=== PATIENT | male | born 1980 | race Caucasian/White ===

== ENCOUNTER → 2019-11-19 15:13 | Outpatient (CLI) | payer OTHER, SELFPAY ==
--- NOTE | ~2019-11-19 | CT_ITS ---
EXAMINATION: CT cervical spine wo con EXAM DATE: 11/19/2019 15:29 INDICATION: Cervical radiculopathy, right arm numbness. TECHNIQUE: Spiral CT of the cervical spine was performed without contrast. Axial images were reviewe d. Coronal and sagittal reformatted images were also reviewed. The dose-length product (DLP) for thi s examination was 297.49 mGy-cm. The exposure was tailored according to patient size (auto mA exposu re control), and iterative reconstruction (ASIR) was used as additional dose reduction technique. Com parison is made to prior examination from 03/26/2018. FINDINGS: There is mild disc disease at all cervical levels. The vertebral bodies are aligned in the AP dimension. There are no acute fractures identified. The odontoid process is intact. The lateral m asses of C1 line up with C2. Paraspinal soft tissue is unremarkable. The soft tissue is unremarkable. Level by level evaluation: C2-C3: Disc does not extend beyond the endplate margin. Uncovertebral joint arthropathy: None. Facet joint arthropathy: Mild. Neural foraminal stenosis: No stenosis. Central canal stenosis: No stenosis. C3-C4: Disc does not extend beyond the endplate margin. Uncovertebral joint arthropathy: None. Facet joint arthropathy: Mild. Neural foraminal stenosis: No stenosis. Central canal stenosis: No stenosis. C4-C5: Disc does not extend beyond the endplate margin. Uncovertebral joint arthropathy: None. Facet joint arthropathy: Mild. Neural foraminal stenosis: No stenosis. Central canal stenosis: No stenosis. C5-C6: There is a mild diffuse disc bulge. Uncovertebral joint arthropathy: Mild. Facet joint arthropathy: Mild. Neural foraminal stenosis: No stenosis. Central canal stenosis: No stenosis. C6-C7: Disc does not extend beyond the endplate margin. Uncovertebral joint arthropathy: Mild left. Facet joint arthropathy: Mild bilateral. Neural foraminal stenosis: Minimal left. Central canal stenosis: No stenosis. C7-T1: Disc does not extend beyond the endplate margin. Uncovertebral joint arthropathy: None. Facet joint arthropathy: Mild to moderate left, mild right. Neural foraminal stenosis: Mild bilateral. Central canal stenosis: No stenosis. Difficult to appreciate any significant interval change. IMPRESSION: 1. Mild cervical spondylosis. Reviewed, dictated and finalized at location B.
== END ==
PROVIDERS: PCP Family Medicine; Visit Provider Physician Assistant Medical
DX: M47.22 Other spondylosis with radiculopathy, cervical region (principal)
CPT/HCPCS: 72125

== ENCOUNTER 2020-06-12 14:38 | Emergency (ER) | payer OTHER, SELFPAY ==
[2020-06-12] VITALS (14 sets, daily range): BP systolic 138–159; BP diastolic 70–107; PULSE 54–85; RESP 12–20; TEMP 36.4; O2SAT 96–99
--- NOTE | ~2020-06-12 | CT_ITS ---
EXAMINATION: CT chest abdomen pelvis w con DATE: 06/12/2020 17:20 CDT INDICATION: Chest and abdomen pain. Diaphoresis. TECHNIQUE: Computed tomography (CT) of the chest, abdomen, and pelvis was performed with 100 cc Omnip aque 350 intravenous contrast. The dose-length product was 1369.18 mGy-cm. Automated exposure control and iterative reconstruction technique were employed. COMPARISON: CT dated 10/26/2015 FINDINGS: CHEST CT: No significant vascular abnormality. No lymphadenopathy. Heart size normal. No pleural or pericardial effusion. There is a 12 mm right lower lobe nodule with adjacent parenchymal consolidation/pleural thickening. No endobronchial lesions. ABDOMEN/PELVIS CT: The liver, spleen, pancreas, adrenal glands and kidneys are unremarkable. Gallbladder is present. Nor mal appendix. No abnormal pelvic masses or fluid collections. There are possible hydroceles. Fluid in the right inguinal canal. No evidence for abdominal aneurysm. No lymphadenopathy. Retroaortic left r enal vein. Nonobstructive bowel gas pattern. No abnormal pelvic masses or fluid collections. Neurosti mulator leads are identified with generator in the right posterior flank soft tissues. No acute osseo us abnormality. IMPRESSION: 1. Right lower lobe nodule measures 12 mm. Consider follow-up low dose CT at 3 months or PET/CT. 2: Right lower lobe peripheral consolidation/pleural thickening which may be infectious/inflammatory or scarring. Reviewed, dictated and finalized at location A. IMPRESSION: 1. Right lower lobe nodule measures 12 mm. Consider follow-up low dose CT at 3 months or PET/CT. 2: Right lower lobe peripheral consolidation/pleural thickening which may be in fectious/inflammatory or scarring.
--- NOTE | ~2020-06-12 | XR_ITS ---
XR chest 1V 06/12/2020 17:44 Indication: Dyspnea. Diaphoresis. Procedure: AP portable chest Comparison: CT dated 06/12/2020 Findings: There is a parenchymal nodule in the right lower lung zone corresponding to the nodule iden tified on CT examination. There is adjacent parenchymal scarring/pleural thickening. Heart size lidya l. Left lung clear. Impression: 1: Right basilar atelectasis/scarring with adjacent pleural thickening. 2: Right basilar pulmonary nodule. Follow-up low dose CT in 3 months or PET/CT examination. Reviewed, dictated and finalized at location A. Impression: 1: Right basilar atelectasis/scarring with adjacent pleural thickening. 2: Right basilar pulmonary nodule. Follow-up low dose CT in 3 months or PET/CT examination.
--- NOTE | 2020-06-12 15:02 | PC.NURSE ---
Report to rhona persaud to continue care.
[2020-06-12 15:14] LABS: Basophils Absolute Auto 0.1 K/mm3 (0.0-0.1); Basophils Percent Auto 0.4 % (0.2-1.2); Eosinophils Percent Auto 0.2 % (0-4.4); Hematocrit 47.2 % (42.0-52.0); Hemoglobin 16.3 g/dL (14.0-18.0); Immature Granulocyte Absolute 0.03 K/mm3 (0.00-0.031); Immature Granulocyte Percent A 0.2 % (0-0.5); Lymphocytes Absolute Auto 1.14 K/mm3 (0.9-3.2); Lymphocytes Percent Auto 9.3 % (18.3-44.2); Mean Corpuscular HGB Conc 34.5 g/dl (32-36); Mean Corpuscular Hemoglobin 30.7 pg (26-34); Mean Corpuscular Volume 88.9 fl (80-100); Mean Platelet Volume 9.3 fl (7.4-10.4); Monocytes Absolute Auto 0.4 K/mm3 (0.1-0.6); Monocytes Percent Auto 3.6 % (2.6-8.5); Neutrophils Absolute Auto 10.6 K/mm3 (1.3-6.7); Neutrophils Percent Auto 86.3 % (45.5-73.1); Platelet Count Result 351 k/mm3 (150-375); Red Blood Count 5.31 M/mm3 (4.6-6.20); Red Cell Distribution Width 12.7 % (11.5-14.5); White Blood Count 12.2 K/mm3 (4.5-10.0)
[2020-06-12] MEDS: ONDANSETRON INJ 4 MG/2 ML VIAL IV PUSH ×2 (15:25→17:59)
--- NOTE | 2020-06-12 15:25 | ECG_ITS ---
Measurements Intervals [place] Rate: 60 P: 58 [place]: 156 QRS: 58 QRSD: 109 T: 62 QT: 433 QTc: 433 Interpretive Statements SINUS RHYTHM WITH SINUS ARRHYTHMIA BASELINE ARTIFACT- I, II, AVR, AVL, V3 NORMAL ECG Electronically Signed On 06-12-2020 15:45:59 CDT by Jeison Deluca D.O.
--- NOTE | 2020-06-12 15:30 | ED.GENADULT ---
HPI - General Adult General Chief complaint: Nausea/Vomiting/Diarrhea Stated complaint: nausea, cold sweats Time Seen by Provider: 06/12/20 15:09 Source: patient Mode of arrival: ambulatory Limitations: no limitations History of Present Illness HPI narrative: Patient is 39 years old presents with nausea and diaphoresis started 3 hours prior to arrival. Patient also complaining of possible abdominal discomfort and throat discomfort. Patient denies any fever, chills, vomiting, diarrhea, constipation, chest pain, shortness of breath, back pain, sore throat or headache. Patient also denies exposure to anybody with COVID-19. History of hypertension, hyperlipidemia, anxiety/depression. Patient does not smoke ,drinks occasionally uses medical marijuana for the last 2 years Related Data Home Medications Medication Instructions Recorded Confirmed duloxetine 60 mg capsule,delayed 60 mg PO DAILY 10/16/19 04/22/20 release Allergies Allergy/AdvReac Type Severity Reaction Status Date / Time No Known Allergies Allergy Mild Verified 04/03/20 09:59 Review of Systems Review of Systems: Narrative: CONSTITUTIONAL: Denies fever, chills, or sweats. EYES: Denies visual changes, redness, or discharge. ENT: Denies rhinorrhea, congestion, sore throat, or otalgia. CARDIOVASCULAR: Denies chest pain, palpitations, or edema. RESPIRATORY: Denies cough or dyspnea. GASTROINTESTINAL: Denies abdominal pain, nausea, vomiting, or diarrhea. GENITOURINARY: Denies dysuria or hematuria. SKIN: Denies rash or itching. MUSCULOSKELETAL: Denies back pain, joint pain, or myalgia. NEUROLOGIC: Denies headache, numbness, or weakness. PSYCHIATRIC: Severe anxiety and depression PMFSH Past Medical History Medical History (Updated 06/12/20 @ 19:35 by Lissette Ervin MD) Normal cardiac stress test 06/06/19 Family History Family History Grandparent Family history of lung cancer Other Family history of cardiovascular disease Hypertension Social History Social History Smoking status: Never smoker Alcohol intake: current Exam Narrative: Exam Narrative: General appearance: Well-developed, well-nourished, looks uncomfortable Skin: Normal color, not diaphoretic Head: Normocephalic, nontraumatic Eyes: Clear conjunctiva ENT: Oropharynx normal, ears normal, nose normal Neck: Supple, nontender Chest and respiratory: Airway patent, no respiratory distress, no accessory muscle use Heart: Regular rate/rhythm Abdomen: Soft, mild diffuse tenderness, no organomegaly, quiet bowel sounds Vascular: Normal peripheral pulses, normal capillary refill. Musculoskeletal: Normal range of motion, nontender back Neurologic: Alert and oriented ?3, PROGRAM ADMIN is normal as tested, no gross motor deficit Course Course Emergency Course: Improving Reevaluation(s) Reevaluation #1: Currently patient feeling much better. Patient received a copy of the CAT scan of the abdomen, pelvis and chest as a reminder for the pulmonary nodule to follow-up within 3 months with his family physician to repeat CT scan of the chest again to make sure there is no malignancy. Date: 06/12/20 Time: 19:38 Vital Signs Vital signs: Vital Signs Temperature 36.4 C L 06/12/20 14:45 Pulse Rate 63 06/12/20 14:45 Respiratory Rate 18 06/12/20 14:45 Blood Pressure 150/99 H 06/12/20 14:45 Pulse Oximetry 99 06/12/20 14:45 Temperature 36.4 C L 06/12/20 14:45 Pulse Rate 60 06/12/20 19:02 Respiratory Rate 12 06/12/20 19:02 Blood Pressure 140/70 06/12/20 19:02 Pulse Oximetry 99 06/12/20 19:02 Medica
[2020-06-12 15:59] LABS: Alanine Aminotransferase 41 U/L (4-50); Albumin Level 4.9 g/dL (3.5-5.1); Alkaline Phosphatase 86 U/L (38-126); Anion Gap 12 mmol/L (8-16); Aspartate Amino Transferase 31 U/L (17-59); Bilirubin,Total 0.9 mg/dL (0.2-1.3); Blood Urea Nitrogen 16 mg/dL (9-20); Calcium 10.4 mg/dL (8.4-10.2); Carbon Dioxide 26 mmol/L (22-30); Chloride 104 mmol/L (98-107); Estimated CRCL calculation 159 ml/min; Estimated Glomerular Filt Rate > 60; Glucose 157 mg/dL (75-110); Lipase 64 U/L (23-300); Potassium 3.8 mmol/L (3.4-5.0); Sodium 142 mmol/L (137-145)
[2020-06-12 16:10] LABS: Troponin I < 0.012 ng/mL (0.000-0.034)
[2020-06-12 16:26] LABS: Alveolar/Arterial O2 Gradient 13.2 mmHg; Base Excess ABG 1.6 mEq/l (+/-2.0); Fractional Inspired Oxygen 21 %; HCO3 ABG 18.1 mEq/l (22.0-26.0); Oxygen Content ABG 22.4 %vol (16.0-22.0); Oxygen Saturation ABG 99.1 % (95.0-100.0); Oxyhemoglobin 97.8 % THb (90.0-100.0); PO2 ABG 118.1 mmHg (80.0-100.0); PO2 FiO2 Ratio Arterial Blood 5.62 %; Total Hemoglobin 16.2 g/dL (12.0-18.0)
[2020-06-12 16:27] LABS: Device ROOM AIR; PCO2 ABG 15.4 mmHg (35.0-45.0); Site Drawn LEFT BRACHIAL; pH ABG 7.687 (7.350-7.450)
[2020-06-12] MEDS: LORazepam INJ (*CRX) 2 MG/ML VIAL 1 MG IV PUSH (16:35)
[2020-06-12 17:14] LABS: Add Urine Microscopic? YES; Appearance Urine Clear (Clear); Bilirubin Urine Negative (Negative); Blood Urine Negative (Negative); Color Urine Yellow (Yellow); Glucose Urine UA Negative (Negative); Ketones Urine 1+ mg/dL (Negative); Leukocyte Esterase Ur Negative LEU/UL (Negative); Mucus Urine Rare /lpf; Nitrate Urine Negative (Negative); Protein Urine 2+ mg/dL (Negative); RBC Urine 0-2 /hpf (0-2); Specific Grav Ur 1.028 (1.001-1.035); Urobilinogen Urine Negative mg/dL (<2.0); WBC Urine 0-3 /hpf
[2020-06-12 17:33] LABS: Amphetamine Screen Urine Negative (Negative); Barbiturate Screen Urine Negative (Negative); Benzodiazepines Screen Urine Negative (Negative); Cannabinoid Screen Urine Positive (Negative); Cocaine Screen Urine Negative (Negative); Methadone Screen Urine Negative (Negative); Opiate Screen Urine Negative (Negative); Phencyclidine Screen Urine Negative (Negative)
--- NOTE | 2020-06-12 19:14 | PC.NURSE ---
Report received from MABLE Delgado. This nurse assumed care of patient at this time.
[2020-06-12 19:16] LABS: Troponin I < 0.012 ng/mL (0.000-0.034)
== END 2020-06-12 19:55 | disposition home or self-care (01) ==
PROVIDERS: Emergency Provider Emergency Medicine; PCP Family Medicine
DX: R91.1 Solitary pulmonary nodule (principal); R11.0 Nausea; F12.90 Cannabis use, unspecified, uncomplicated; I10 Essential (primary) hypertension; E78.5 Hyperlipidemia, unspecified; Z79.899 Other long term (current) drug therapy
CPT/HCPCS: 36415; 36600; 71045; 71260; 74177; 80053; 80307; 81001; 82805; 83690; 84484; 85025; 93005; 96374; 96375; 96376; 99284; J2060; J2405; Q9967

== ENCOUNTER 2020-06-15 12:27 | Outpatient (NON) | payer OTHER, SELFPAY ==
[2020-06-17 18:20] LABS: SARS-CoV-2 RNA PCR Negative
== END 2020-06-15 12:28 ==
PROVIDERS: PCP Family Medicine; Visit Provider Physician Assistant Medical
DX: Z20.828 Contact with and (suspected) exposure to other viral communicable diseases (principal); J02.9 Acute pharyngitis, unspecified; R11.0 Nausea; R51.9 Headache, unspecified; R50.9 Fever, unspecified
CPT/HCPCS: 87635; C9803; U0003

== ENCOUNTER 2020-08-31 11:35 | Outpatient (NON) | payer OTHER, SELFPAY ==
[2020-08-31 21:25] LABS: SARS-CoV-2 RNA PCR Negative
== END 2020-08-31 11:36 ==
LOC: ANHCOVIDDT 11:36
PROVIDERS: PCP Family Medicine; Visit Provider Physician Assistant Medical
DX: Z20.822 Contact with and (suspected) exposure to COVID-19 (principal); R51.9 Headache, unspecified; J34.89 Other specified disorders of nose and nasal sinuses
CPT/HCPCS: C9803; U0003; U0005

== ENCOUNTER → 2020-09-28 11:09 | Outpatient (CLI) | payer OTHER, SELFPAY ==
--- NOTE | ~2020-09-28 | CT_ITS ---
EXAMINATION: CT diagnostic chest wo con DATE: 09/28/2020 11:24 INDICATION: Solitary pulmonary nodule TECHNIQUE: Computed tomography (CT) of the chest was performed without intravenous contrast. The dose -length product (DLP) was 702.48 mGy-cm. Automated exposure control and iterative reconstruction tech nique were employed. COMPARISON: 06/12/2020, 10/26/2015, 01/22/2014 FINDINGS: There is a 12 mm nodule of the right lower lobe which is essentially unchanged on multiple prior CT examinations, most consistent with a benign process. No new pulmonary nodules are identified . There is chronic subpleural scarring in the right lower lobe. There is no pleural effusion or pneum othorax. There is minimal left axillary lymphadenopathy. IMPRESSION: 1. Right lower lobe nodule, stable on multiple examinations, consistent with a benign finding. 2. Minimal left axillary lymphadenopathy, likely related to patient's history of recent COVID 19 vacc ination. Clinical follow-up is recommended. Reviewed, dictated and finalized at location A. WEIGHER IMPRESSION: 1. Right lower lobe nodule, stable on multiple examinations, consistent with a benign finding. 2. Minimal left axillary lymphadenopathy, likely related to patient's history o f recent COVID 19 vaccination. Clinical follow-up is recommended.
== END ==
PROVIDERS: PCP Family Medicine; Visit Provider Physician Assistant Medical
DX: R91.1 Solitary pulmonary nodule (principal); R59.0 Localized enlarged lymph nodes
CPT/HCPCS: 71250

== ENCOUNTER → 2022-01-12 12:34 | Outpatient (CLI) | payer OTHER, SELFPAY ==
--- NOTE | ~2022-01-12 | CT_ITS ---
EXAMINATION: CT abdomen pelvis wo con DATE: 01/12/2022 12:59 INDICATION: Left lower quadrant abdominal pain and left flank pain. Hematuria. TECHNIQUE: Computed tomography (CT) of the abdomen and pelvis was performed without intravenous contr ast. Automated exposure control and iterative reconstruction technique were employed. The dose-length product was 1318.22 mGy-cm. COMPARISON: 06/12/2020 and 10/26/2015 FINDINGS: 12 mm right lower lobe nodule unchanged since 10/26/2015 which could represent either a hamartoma or s equela of old granulomatous disease. There is unchanged pleural parenchymal scarring in the adjacent more peripheral right lower lobe. Heart size is normal. No pericardial or pleural effusion. Liver, ga llbladder, spleen, pancreas and bilateral adrenal glands are normal. 1-2 mm nonobstructing stone in a n upper pole calyx of the otherwise normal right kidney. 2 mm stone in the mid left ureter without hy dronephrosis. Decompressed bladder is normal. Bowels including the appendix are normal. No free intra peritoneal gas or fluid. No pathologically enlarged abdominal or pelvic lymphadenopathy. Spinal stimu lator the subcutaneous tissues at the right flank with leads extending into the posterior central can al of the lower thoracic spine with distal tip at the level of T6. IMPRESSION: 1. Bilateral nephrolithiasis with 2 mm nonobstructing stone in the mid left ureter and 1-2 mm nonobst ructing stone at an upper pole calyx of the right kidney. Reviewed, dictated and finalized at location B. IMPRESSION: 1. Bilateral nephrolithiasis with 2 mm nonobstructing stone in the mid left ure ter and 1-2 mm nonobstructing stone at an upper pole calyx of the right kidney.
== END ==
PROVIDERS: PCP Family Medicine; Visit Provider Family Medicine
DX: N20.2 Calculus of kidney with calculus of ureter (principal); R10.9 Unspecified abdominal pain
CPT/HCPCS: 74176

== ENCOUNTER → 2022-02-08 14:25 | Outpatient (CLI) | payer OTHER, SELFPAY ==
--- NOTE | ~2022-02-08 | US_ITS ---
US renal BI 02/08/2022 14:43 Procedure: Realtime transabdominal ultrasound of the kidneys and bladder. Indication: Hematuria Comparison: Ultrasound dated 02/20/2013 Findings: Renal echotexture is normal bilaterally without hydronephrosis, contour deforming mass or r enal calculus. The right kidney measures 11.8 cm and left kidney measures 13.1 cm. Bladder within no rmal limits. Impression: 1: Unremarkable renal ultrasound. No stones, masses or hydronephrosis. Reviewed, dictated and finalized at location A. Impression: 1: Unremarkable renal ultrasound. No stones, masses or hydronephrosis.
== END ==
PROVIDERS: PCP Family Medicine; Visit Provider Family Medicine
DX: R93.5 Abnormal findings on diagnostic imaging of other abdominal regions, including retroperitoneum (principal); R10.9 Unspecified abdominal pain; R31.9 Hematuria, unspecified
CPT/HCPCS: 76775

== ENCOUNTER 2022-06-15 20:25 | Emergency (ER) | payer OTHER, SELFPAY ==
--- NOTE | ~2022-06-15 | XR_ITS ---
EXAM: XR hand RT 2V DATE: 06/15/2022 21:05 HISTORY: possible FB, piece of tile,palmar aspec, prox 1st metacarpal . COMPARISON: None available. FINDINGS: Normal mineralization. No fracture or dislocation. No lytic or blastic lesion. Joint space s are maintained. No erosion or periosteal change. Soft tissues within normal limits. IMPRESSION: No acute osseous finding in the right hand. No radiopaque foreign body. Reviewed, dictated and finalized at location K. IMPRESSION: No acute osseous finding in the right hand. No radiopaque foreign b delia.
[2022-06-15 20:51] VITALS: BP 122/73; PULSE 62; RESP 16; TEMP 36.8; O2SAT 100
--- NOTE | 2022-06-15 21:09 | ED.WOUNDLAC ---
HPI - Wound/Laceration General Chief Complaint: Wound/Laceration Stated Complaint: laceration Time Seen by Provider: 06/15/22 21:02 History of Present Illness HPI narrative: 41-year-old male presents the emergency room for puncture wound to his right hand. Patient states that he was moving tile when a piece broke off cutting his right hand. Patient states that he remove the foreign body prior to arrival. States tetanus is not up-to-date. Related Data Home Medications Medication Instructions Recorded Confirmed duloxetine 60 mg capsule,delayed 60 mg PO DAILY 10/16/19 03/01/22 release (Cymbalta) lidocaine 5 % topical cream 1 applic topical BID PRN 10/15/20 03/01/22 Allergies Allergy/AdvReac Type Severity Reaction Status Date / Time No Known Allergies Allergy Mild Verified 03/01/22 10:44 Review of Systems Review of Systems: CONSTITUTIONAL: Denies fever, chills, or sweats. EYES: Denies visual changes, redness, or discharge. ENT: Denies rhinorrhea, congestion, sore throat, or otalgia. CARDIOVASCULAR: Denies chest pain, palpitations, or edema. RESPIRATORY: Denies cough or dyspnea. GASTROINTESTINAL: Denies abdominal pain, nausea, vomiting, or diarrhea. GENITOURINARY: Denies dysuria or hematuria. SKIN: Puncture wound to right hand MUSCULOSKELETAL: Denies back pain, joint pain, or myalgia. NEUROLOGIC: Denies headache, numbness, dizziness, or weakness. PSYCHIATRIC: Denies anxiety or depression. PMFSH Past Medical History Medical History Cervical radiculopathy at C5 Cervicalgia Chronic pain Chronic pain of left knee Cubital tunnel syndrome on right Normal cardiac stress test 06/06/19 Surgical History Surgical History History of carpal tunnel release Family History Family History Grandparent Family history of lung cancer Other Family history of cardiovascular disease Hypertension Social History Social History Smoking status: Never smoker Alcohol intake: current Exam Narrative: GENERAL: Well-appearing, well-nourished, no physical limitations, and in no acute distress. HEAD: Normocephalic, atraumatic. EYES: Conjunctivae normal, PERRLA and EOMIs CHEST: Clear to auscultation. No respiratory distress. No wheezes rales or rhonchi. HEART: Regular rate and rhythm. No murmur heard. Normal peripheral pulses. EXTREMITIES: rt hand: 2 cm superficial laceration to the base of the palmar surface SKIN: Warm, dry, no rash. No noted wounds NEURO: No focal deficits. Alert and oriented x3. MAEW. CN's II-XI intact bilaterally, normal gait PSYCH: Cooperative. Normal mood and affect. Course Vital Signs Vital signs: Vital Signs Temperature 36.8 C 06/15/22 20:51 Pulse Rate 62 06/15/22 20:51 Respiratory Rate 16 06/15/22 20:51 Blood Pressure 122/73 06/15/22 20:51 Pulse Oximetry 100 06/15/22 20:51 Temperature 36.8 C 06/15/22 20:51 Pulse Rate 62 06/15/22 20:51 Respiratory Rate 16 06/15/22 20:51 Blood Pressure 122/73 06/15/22 20:51 Pulse Oximetry 100 06/15/22 20:51 Procedures Other Procedure Procedure 1: Other Procedure: 2109: Adhesive applied to wound. Wound successfully closed. Discharge Plan Discharge Clinical Impression: Laceration of hand, right Patient Disposition: Home, Self-Care Condition: Stable Prescriptions: New cephalexin 500 mg capsule 500 mg PO Q12H 7 Days Qty: 14 0RF No Action duloxetine [Cymbalta] 60 mg capsule,delayed release(DR/EC) 60 mg PO DAILY lidocaine 5 % cream 1 applic topical BID PRN triamcinolone acetonide 0.1 % cream 1 applic topical QID Qty: 80 0RF atorvastatin 40 mg tablet See Rx Instructions .ROUTE .COMPLEX Qty: 90 3RF Dose Instruction: TAKE 1 TABLET B
[2022-06-15] MEDS: TETANUS,DIPHTHERIA,AC PERTUSSIS ADULT (0.5 ML) BOOSTRIX IM (21:14)
== END 2022-06-15 21:47 | disposition home or self-care (01) ==
LOC: ANHED 21:29
PROVIDERS: Emergency Provider Nurse Practitioner Family; PCP Family Medicine
DX: S61.411A Laceration without foreign body of right hand, initial encounter (principal); W26.8XXA Contact with other sharp object(s), not elsewhere classified, initial encounter; Z23 Encounter for immunization
CPT/HCPCS: 12001; 73120; 90471; 90715; 99283

== ENCOUNTER 2022-08-17 14:26 | Emergency (ER) | payer OTHER, SELFPAY ==
--- NOTE | ~2022-08-17 | XR_ITS ---
EXAMINATION: XR chest 2V DATE: 08/17/2022 15:06 INDICATION: Shortness of breath and chest pressure. TECHNIQUE: Frontal and lateral views of the chest were obtained. COMPARISON: Chest single view 06/12/2020, CT abdomen and pelvis 01/12/2022, chest CT 06/12/2020 FINDINGS: There is a chronic nodule in right lung lower lobe, likely a hamartoma. There is mild scarr ing in right lower lobe. No pleural effusion or pneumothorax. The heart size is normal. Epidural elec trodes are noted. There are suture anchors in right scapula. IMPRESSION: 1. Mild scarring in right lung lower lobe. Reviewed, dictated and finalized at location A. O COMPUTER DATA PROCESSOR
[2022-08-17 14:27] VITALS: BP 143/91; PULSE 93; RESP 17; TEMP 36.6; O2SAT 97
--- NOTE | 2022-08-17 14:27 | ECG_ITS ---
Measurements Intervals [place] Rate: 77 P: 54 [place]: 156 QRS: 44 QRSD: 98 T: 29 QT: 382 QTc: 433 Interpretive Statements SINUS RHYTHM DELAYED PRECORDIAL R/S TRANSITION BASELINE WANDER- III, V4-V6 BORDERLINE ECG COMPARED TO ECG 06/12/2020 15:03:41 NO SIGNIFICANT CHANGES Electronically Signed On 08-18-2022 7:54:21 GEOPHYSICIST by Jeison Deluca D.O.
[2022-08-17 15:11] LABS: Basophils Absolute Auto 0.1 K/mm3 (0.0-0.1); Eosinophils Absolute Auto 0.3 K/mm3 (0-0.3); Eosinophils Percent Auto 3.9 % (0-4.4); Hematocrit 46.1 % (42.0-52.0); Hemoglobin 16.1 g/dL (14.0-18.0); Immature Granulocyte Absolute 0.05 K/mm3 (0.00-0.031); Immature Granulocyte Percent A 0.6 % (0-0.5); Lymphocytes Absolute Auto 1.71 K/mm3 (0.9-3.2); Mean Corpuscular HGB Conc 34.9 g/dl (32-36); Mean Corpuscular Hemoglobin 30.5 pg (26-34); Mean Corpuscular Volume 87.3 fl (80-100); Mean Platelet Volume 8.3 fl (7.4-10.4); Monocytes Absolute Auto 0.8 K/mm3 (0.1-0.6); Monocytes Percent Auto 10.8 % (2.6-8.5); Neutrophils Absolute Auto 4.8 K/mm3 (1.3-6.7); Neutrophils Percent Auto 61.7 % (45.5-73.1); Platelet Count Result 328 k/mm3 (150-375); Red Blood Count 5.28 M/mm3 (4.6-6.20); Red Cell Distribution Width 13.2 % (11.5-14.5); White Blood Count 7.8 K/mm3 (4.5-10.0)
[2022-08-17 15:22] LABS: Alanine Aminotransferase 53 U/L (6-50); Albumin Level 4.5 g/dL (3.5-5.1); Alkaline Phosphatase 77 U/L (38-126); Anion Gap 8 mmol/L (8-16); Aspartate Amino Transferase 35 U/L (17-59); Bilirubin,Total 0.8 mg/dL (0.2-1.3); Blood Urea Nitrogen 21 mg/dL (9-20); Carbon Dioxide 26 mmol/L (22-30); Chloride 100 mmol/L (98-107); Estimated CRCL calculation 133 ml/min; Estimated Glomerular Filt Rate > 60; Glucose 107 mg/dL (65-110); Lipase 53 U/L (23-300); Potassium 3.9 mmol/L (3.4-5.0); Sodium 134 mmol/L (137-145)
[2022-08-17 15:32] LABS: Troponin I < 0.012 ng/mL (0.000-0.034)
[2022-08-17 15:34] LABS: Prothrombin Time 12.4 Seconds (11.1-14.7)
[2022-08-17 15:39] LABS: D Dimer < 0.27 ug/mL (<0.48)
--- NOTE | 2022-08-17 17:30 | ED.CHESTPAIN ---
HPI - Chest Pain General Chief Complaint: Chest Pain Stated Complaint: sob/cp/tired Time Seen by Provider: 08/17/22 17:30 Source: patient Mode of arrival: ambulatory Limitations: no limitations History of Present Illness HPI narrative: The patient is a 41 yo male with a history of HTN, HLD, presenting to the ER for evaluation of chest pain. Patient reports pressure over the center of his chest that has been constant over the past 3 days. However, patient states that pain is resolved at this time and only has sinus pressure pain. Patient denies any associated lightheadedness, dizziness, jaw pain, neck pain, back pain or shoulder pain. Patient reports cough and associated shortness of breath with exertion. He denies hemoptysis or pleuritic pain. Patient denies fever or chills. He reports continued congestion and sinus drainage. He has been taking Mucinex with only some improvement in his symptoms. Patient was diagnosed with COVID 08/08, did finish a course of Paxlovid. He denies leg swelling or calf pain. He has been compliant with his medications. No family history of sudden cardiac , heart attack in immediate family members. Related Data Home Medications Medication Instructions Recorded Confirmed duloxetine 60 mg capsule,delayed 60 mg PO DAILY 10/16/19 03/01/22 release (Cymbalta) lidocaine 5 % topical cream 1 applic topical BID PRN 10/15/20 03/01/22 Allergies Allergy/AdvReac Type Severity Reaction Status Date / Time No Known Allergies Allergy Mild Verified 03/01/22 10:44 Review of Systems Review of Systems: CONSTITUTIONAL: Denies fever, chills, or sweats. EYES: Denies visual changes, redness, or discharge. ENT: Denies rhinorrhea, congestion, sore throat, or otalgia. CARDIOVASCULAR: Reports chest pain which is currently resolved, denies palpitations RESPIRATORY: Denies cough or dyspnea. GASTROINTESTINAL: Denies abdominal pain, nausea, vomiting, or diarrhea. GENITOURINARY: Denies dysuria or hematuria. SKIN: Denies rash or itching. MUSCULOSKELETAL: Denies back pain, joint pain, or myalgia. NEUROLOGIC: Denies headache, numbness, or weakness. [facility] Past Medical History Medical History Cervical radiculopathy at C5 Cervicalgia Chronic pain Chronic pain of left knee Cubital tunnel syndrome on right Normal cardiac stress test 06/06/19 Surgical History Surgical History History of carpal tunnel release Family History Family History Grandparent Family history of lung cancer Other Family history of cardiovascular disease Hypertension Social History Social History Smoking status: Never smoker Alcohol intake: current Exam Narrative: GENERAL: Awake, alert, conversant HEAD: Normocephalic, atraumatic. EYES: PERRLA and EOMI. ENT: Nares clear, no rhinorrhea or epistaxis. Mucous membranes moist. NECK: Supple. CHEST: No respiratory distress, breathing even and non labored, no chest wall tenderness HEART: Regular rate, sinus rhythm ABDOMEN:Non distended, non tender EXTREMITIES: Normal range of motion. No edema. SKIN: Warm, dry, no rash. NEURO:No focal deficits. Alert and oriented x3 Course Vital Signs Vital signs: Vital Signs Temperature 36.6 C 08/17/22 14:27 Pulse Rate 93 08/17/22 14:27 Respiratory Rate 17 08/17/22 14:27 Blood Pressure 143/91 H 08/17/22 14:27 Pulse Oximetry 97 08/17/22 14:27 Oxygen Delivery Room Air 08/17/22 14:27 Temperature 36.6 C 08/17/22 14:27 Pulse Rate 93 08/17/22 14:27 Respiratory Rate 17 08/17/22 14:27 Blood Pressure 143/91 H 08/17/22 14:27 Pulse Oximetry 97 08/17/22 14:27 Oxygen Delivery Room Air 08/17/22 14:27 MDM - Chest Pain MDM Narrative Medical decision making narrative: Patient pres
[2022-08-17 18:16] VITALS: BP 133/89; PULSE 86; RESP 13; O2SAT 98
[2022-08-17 18:22] LABS: Troponin I < 0.012 ng/mL (0.000-0.034)
== END 2022-08-17 19:01 | disposition home or self-care (01) ==
PROVIDERS: Emergency Medicine; Emergency Provider Emergency Medicine; PCP Family Medicine
DX: R07.89 Other chest pain (principal); J01.90 Acute sinusitis, unspecified; B97.89 Other viral agents as the cause of diseases classified elsewhere; R94.31 Abnormal electrocardiogram [ECG] [EKG]
CPT/HCPCS: 36415; 71046; 80053; 83690; 84484; 85025; 85380; 85610; 85730; 93005; 99284

== ENCOUNTER → 2023-05-16 12:42 | Outpatient (CLI) | payer OTHER, SELFPAY ==
--- NOTE | ~2023-05-16 | CT_ITS ---
EXAMINATION: CT brain wo/w con DATE: 05/16/2023 13:18 INDICATION: Low male testosterone. Hyperproteinemia. TECHNIQUE: Computed tomography (CT) of the head was performed without and subsequently with 100 CC Om nipaque 350 intravenous contrast. The mA was adjusted according to patient size. Iterative reconstruc tion technique was employed. Exam dose: 1291.38 mGy-cm total exam DLP. COMPARISON: None FINDINGS: No intracranial mass lesion or hemorrhage or cerebrovascular accident is detected. No midli ne shift or mass effect. Normal rogers-white matter differentiation. Normal ventricular size. Normal size of the pituitary gland. The sella turcica appears normal. No subdural or epidural hematoma. The included mastoid air cells and paranasal sinuses appear normally developed and aerated. No fracture or bone destruction of the cranial vault. IMPRESSION: No significant abnormality Reviewed, dictated and finalized at Location A. Reviewed, dictated and finalized at location L. IMPRESSION: No significant abnormality
[2023-05-16 13:05] LABS: Estimated Glomerular Filt Rate > 60
== END ==
PROVIDERS: PCP Family Medicine; Visit Provider Family Medicine
DX: E22.1 Hyperprolactinemia (principal); R79.89 Other specified abnormal findings of blood chemistry
CPT/HCPCS: 70470; Q9967

== ENCOUNTER 2023-10-10 06:51 | Outpatient (CLI) | payer OTHER, SELFPAY ==
--- NOTE | ~2023-10-10 | CT_ITS ---
EXAMINATION: CT thoracic lumbar wo con DATE: 10/10/2023 07:17 INDICATION: Dorsalgia, unspecified. TECHNIQUE: Computed tomography (CT) of the thoracic and lumbar spine was performed without intravenou s contrast. Automated exposure control and iterative reconstruction technique were employed. The dose -length product was 2191.10 mGy-cm. COMPARISON: Chest CT 09/28/2020 FINDINGS: CT THORACIC SPINE: Calcified right hilar and mediastinal lymph nodes are consistent with old granulom atous disease. There is 6 degrees levocurvature of cervicothoracic spine and 6 degrees dextrocurvatur e of thoracic spine. There is mild chronic anterior wedging of T8 and T9 vertebral bodies. There is m ildly decreased disc height at multiple levels. There is moderately decreased disc height at T4-T5, T 5-T6, and T8-T9 and severely decreased disc height at T9-T10. There are bridging endplate osteophytes at T9-T10. There is multilevel facet joint osteoarthritis, severe in upper thoracic spine. There is multilevel mild neural foraminal stenosis. No central canal stenosis. There are epidural electrodes with tips that T6. CT LUMBAR SPINE: There is a 2 mm stone in right kidney. There is 4 degrees dextrocurvature of thoraci c lumbar spine. Vertebral body heights are normal. There is mildly decreased disc height at L1-L2 and L4-L5. The following disc levels are specifically discussed: L1-L2: The disc does not extend beyond the endplate margins. There is mild bilateral facet joint oste oarthritis. There is no neural foraminal stenosis. There is no central canal stenosis. L2-L3: The disc does not extend beyond the endplate margin. There is mild bilateral facet joint osteo arthritis. There is no neural foraminal stenosis. There is no central canal stenosis. L3-L4: The disc is bulging. There is mild bilateral facet joint osteoarthritis. There is mild bilater al neural foraminal stenosis. There is no central canal stenosis. L4-L5: The disc is bulging. There is mild bilateral facet joint osteoarthritis. There is mild bilater al neural foraminal stenosis. There is mild central canal stenosis. L5-S1: The disc is bulging. There is mild bilateral facet joint osteoarthritis. There is mild bilater al neural foraminal stenosis. There is mild central canal stenosis. IMPRESSION: 1. Moderate thoracic spondylosis and mild lumbar spondylosis. Reviewed, dictated and finalized at location A. NESS INITIATIVES MANAGER
== END 2023-10-10 06:52 | disposition home or self-care (01) ==
PROVIDERS: PCP Family Medicine; Visit Provider Family Medicine
DX: M43.04 Spondylolysis, thoracic region (principal); M43.06 Spondylolysis, lumbar region; G89.29 Other chronic pain; Z96.82 Presence of neurostimulator
CPT/HCPCS: 72128; 72131

== ENCOUNTER 2023-10-25 07:39 | Outpatient (NON) | payer OTHER, SELFPAY | END 2023-10-25 07:40 | disposition home or self-care (01) | LOC: ANHLAB 10-26 07:40 | PROVIDERS: PCP Family Medicine; Visit Provider Internal Medicine Gastroenterology | DX: Z12.11 Encounter for screening for malignant neoplasm of colon (principal); K63.5 Polyp of colon | CPT/HCPCS: 88305 ==

== ENCOUNTER 2023-10-25 08:05 | Day surgery (SDC) | payer OTHER, SELFPAY ==
[2023-10-05 10:00] VITALS: BMI 39.0
[2023-10-11 14:00] VITALS: BMI 34.9
[2023-10-25 09:13] VITALS: BP 146/110; PULSE 95; RESP 20; TEMP 36.8; O2SAT 98
[2023-10-25] MEDS: LACTATED RINGERS 1,000 ML 150 ML IV CONT (09:16)
--- NOTE | 2023-10-25 09:37 | PM.HPGS ---
History of Present Illness History of Present Illness Consent: Risks, benefits, and alternatives have been discussed and questions answered. Patient agrees to proceed with procedure. Chief complaint: Neoplasm Screening Narrative: Aleksandar Olsen is a 43 year old male presents for screening colonoscopy. Patient's current weight appetite and bowel movements are normal. Patient denies abdominal pain. He has had no bleeding. Family history is noncontributory. Review of Systems Review of Systems: Review of systems noncontributory. [facility] Past Medical History Medical History Cervical radiculopathy at C5 Cervicalgia Chronic pain Chronic pain of left knee Cubital tunnel syndrome on right Normal cardiac stress test 06/06/19 Syncope Surgical History Surgical History History of carpal tunnel release Family History Family History (Updated 10/03/23 @ 14:06 by Roxanna Moreno MD) Grandparent Family history of lung cancer Mother Melanoma Other Family history of cardiovascular disease Hypertension Social History Social History (Updated 10/03/23 @ 13:28 by Larissa Obrien MA) Smoking status: Never smoker Alcohol intake: never Substance use: never Substance use type: does not use Do You Feel Safe in your Home?: Yes Lack of Transportation: No Lack of Food: Never True Current Housing: I Have Housing Concerned About Future Housing: No Difficulty Paying Gas/Electric Bills: No Difficulty Paying for Meds: No Currently Unemployed: No Education: Bachelor's Degree Difficulty w/ Childcare or Family Care: No Living arrangements: with family Spiritual care concerns: No Meds Home Medications and Allergies Home Medications Medication Instructions Recorded Confirmed Type duloxetine 60 mg capsule,delayed 60 mg PO DAILY 10/16/19 10/25/23 History release (Cymbalta) lidocaine 5 % topical cream 1 applic topical BID PRN Rash 10/15/20 10/25/23 History triamcinolone acetonide 0.1 % 1 applic topical QID #80 grams 04/15/21 10/25/23 Rx topical cream diclofenac sodium 1 % topical gel See Rx Instructions .Route 01/27/22 10/25/23 Rx (Voltaren Arthritis Pain) .COMPLEX #350 grams ivermectin 1 % topical cream 1 applic topical DAILY #45 grams 08/16/23 03/13/24 Rx sertraline 100 mg tablet 100 mg PO DAILY #90 tabs 04/12/23 10/25/23 Rx semaglutide (weight loss) 2.4 2.4 mg (0.75 mL) subcut WEEKLY #9 07/19/23 10/25/23 Rx mg/0.75 mL subcutaneous pen mL injector (Wegovy) testosterone cypionate 200 mg/mL 200 mg IM WEEKLY #10 mL 09/13/23 10/25/23 Rx intramuscular oil doxycycline hyclate 100 mg capsule 100 mg PO DAILY 09/15/23 10/25/23 History oxymetazoline 1 % topical cream 1 applic topical DAILY 09/15/23 10/25/23 History (Rhofade) atorvastatin 40 mg tablet 40 mg PO DAILY 10/25/23 10/25/23 History hydrochlorothiazide 12.5 mg capsule 12.5 mg PO DAILY 10/25/23 10/25/23 History irbesartan 150 mg tablet 300 mg PO DAILY 10/25/23 10/25/23 History Allergies Allergy/AdvReac Type Severity Reaction Status Date / Time No Known Allergies Allergy Mild Verified 10/25/23 09:08 Vital Signs Vital Signs - 24 hr 10/25/23 09:13 Temperature 98.3 F Pulse Rate 95 Respiratory Rate 20 Blood Pressure 146/110 H Pulse Oximetry 98 Oxygen Delivery Room Air Exam Narrative: Physical exam reveals patient HEENT exam is unremarkable. Patient is anicteric. Lungs are clear to auscultation and heart is without murmur or extra sounds. Abdomen bowel sounds are present soft nontender with no organomegaly. Digital external rectal exam is normal. Assessment and Plan Assessment and plan (1) Encounter for screening colonoscopy: Code(s): Z12.11 - Encounter for screening for malignant neoplasm of colon Status: Acute Assessment and Plan: Patient p
--- NOTE | 2023-10-25 09:37 | WPDANESEPPF ---
Anes - Initial Pre Proc Eval Procedure: Operation Date: 10/25/23 10:30 Proposed Procedures p Screening Colonoscopy - Kennedy Beckman MD Date/Time: 10/25/23 09:37 Surgeon: Kennedy Beckman MD Pre Op Diagnosis: Neoplasm Screening Patient Data Age: 43 Gender: M Height: 1.8 m Weight: 124 kg Last Vital Signs Temp 36.8 C 10/25/23 09:13 Pulse 95 10/25/23 09:13 Resp 20 10/25/23 09:13 BP 146/110 H 10/25/23 09:13 Pulse Ox 98 10/25/23 09:13 O2 Del Method Room Air 10/25/23 09:13 Allergies Allergy/AdvReac Type Severity Reaction Status Date / Time No Known Allergies Allergy Mild Verified 10/25/23 09:08 Home Medications Medication Instructions Recorded Confirmed Type duloxetine 60 mg capsule,delayed 60 mg PO DAILY 10/16/19 10/25/23 History release (Cymbalta) lidocaine 5 % topical cream 1 applic topical BID PRN Rash 10/15/20 10/25/23 History triamcinolone acetonide 0.1 % 1 applic topical QID #80 grams 04/15/21 10/25/23 Rx topical cream diclofenac sodium 1 % topical gel See Rx Instructions .Route 01/27/22 10/25/23 Rx (Voltaren Arthritis Pain) .COMPLEX #350 grams ivermectin 1 % topical cream 1 applic topical DAILY #45 grams 03/29/23 10/25/23 Rx sertraline 100 mg tablet 100 mg PO DAILY #90 tabs 04/12/23 10/25/23 Rx semaglutide (weight loss) 2.4 2.4 mg (0.75 mL) subcut WEEKLY #9 07/19/23 10/25/23 Rx mg/0.75 mL subcutaneous pen mL injector (Wegovy) testosterone cypionate 200 mg/mL 200 mg IM WEEKLY #10 mL 09/13/23 10/25/23 Rx intramuscular oil doxycycline hyclate 100 mg capsule 100 mg PO DAILY 09/15/23 10/25/23 History oxymetazoline 1 % topical cream 1 applic topical DAILY 09/15/23 10/25/23 History (Rhofade) atorvastatin 40 mg tablet 40 mg PO DAILY 10/25/23 10/25/23 History hydrochlorothiazide 12.5 mg capsule 12.5 mg PO DAILY 10/25/23 10/25/23 History irbesartan 150 mg tablet 300 mg PO DAILY 10/25/23 10/25/23 History Patient hx anesthesia problems: post op nausea/vomiting Family hx anesthesia problems: post op nausea/vomiting Results Review: All pre-operative results and documents have been reviewed as part of the pre-operative evaluation. [facility] Past Medical History Medical History Cervical radiculopathy at C5 Cervicalgia Chronic pain Chronic pain of left knee Cubital tunnel syndrome on right Normal cardiac stress test 06/06/19 Syncope Surgical History Surgical History History of carpal tunnel release Family History Family History Grandparent Family history of lung cancer Mother Melanoma Other Family history of cardiovascular disease Hypertension Social History Social History Smoking status: Never smoker Alcohol intake: never Substance use: never Substance use type: does not use Do You Feel Safe in your Home?: Yes Lack of Transportation: No Lack of Food: Never True Current Housing: I Have Housing Concerned About Future Housing: No Difficulty Paying Gas/Electric Bills: No Difficulty Paying for Meds: No Currently Unemployed: No Education: Bachelor's Degree Difficulty w/ Childcare or Family Care: No Living arrangements: with family Spiritual care concerns: No Anes - Eval Final PreProcedure Day of Procedure 10/25/23 09:37 Patient weight: obese Heart: regular rate and rhythm Lungs: clear to auscultation Airway: Mallampati scale class II Neurological: alert and oriented Last oral intake: >/= 8 hours ASA classification: III Emergent: no Anesthetic plan: proceed Anesthesia type and monitoring: general GIVS and standard monitoring Results Review: All pre-operative results and documents have been reviewed as part of the pre-operative evaluation. Informed Consent: The patient's anes
[2023-10-25 10:40] VITALS: BP 114/79; PULSE 85; RESP 16; O2SAT 99
[2023-10-25 10:50] VITALS: BP 124/91; PULSE 85; RESP 20; O2SAT 99
[2023-10-25 11:00] VITALS: BP 127/90; PULSE 86; RESP 20; O2SAT 99
--- NOTE | 2023-10-25 11:04 | WPDANESPN ---
Anes - Prog Note Post-Op Date/Time: 10/25/23 11:04 Cardiovascular status: normal Respiratory status: normal Airway patency: baseline Mental status: baseline Post-Op hydration status: normal Vital Signs: Last Vital Signs Temp 36.8 C 10/25/23 09:13 Pulse 86 10/25/23 11:00 Resp 20 10/25/23 11:00 BP 127/90 10/25/23 11:00 Pulse Ox 99 10/25/23 11:00 O2 Del Method Room Air 10/25/23 11:00 Pain Score (VAS): 0 I/O: Intake & Output 10/24/23 10/25/23 10/25/23 23:59 07:59 15:59 Intake Total 400 Balance 400 Patient Feedback: Patient satisfied with anesthetic care.
== END 2023-10-25 11:15 | disposition home or self-care (01) ==
PROVIDERS: PCP Family Medicine; Visit Provider Internal Medicine Gastroenterology
PROC: 0DJD8ZZ Inspection of Lower Intestinal Tract, Via Natural or Artificial Opening Endoscopic (ICD-10-PCS; CPT 45378; principal; 2023-10-25 10:30)
DX: Z12.11 Encounter for screening for malignant neoplasm of colon (principal); D12.5 Benign neoplasm of sigmoid colon; K64.8 Other hemorrhoids
CPT/HCPCS: 45378

== ENCOUNTER 2024-02-24 08:15 | Outpatient (CLI) | payer OTHER, SELFPAY ==
--- NOTE | 2024-02-24 | ECG_ITS ---
Test Date: 2024-02-24 08:51:42 Measurements Intervals [place] Rate: 70 P: 6 WV: 147 QRS: 38 QRSD: 117 T: 21 QT: 388 QTc: 420 Interpretive Statements SINUS RHYTHM INTRAVENTRICULAR CONDUCTION DELAY BORDERLINE ECG No previous ECG available for comparison Electronically Signed On 02-24-2024 10:01:47 CDT by Jeison Deluca D.O.
== END 2024-02-24 08:16 | disposition home or self-care (01) ==
LOC: ANHCARD 08:17
PROVIDERS: PCP Family Medicine; Visit Provider Nurse Anesthetist, Certified Registered
DX: Z01.818 Encounter for other preprocedural examination (principal); I10 Essential (primary) hypertension; I45.9 Conduction disorder, unspecified
CPT/HCPCS: 93005

== ENCOUNTER 2024-06-12 07:51 | Outpatient (CLI) | payer OTHER, SELFPAY ==
[2024-06-12 08:36] LABS: Add Urine Microscopic? YES; Appearance Urine Clear (Clear); Bacteria Urine None Seen /hpf; Bilirubin Urine Negative (Negative); Blood Urine Negative (Negative); Color Urine Yellow (Yellow); Glucose Urine UA Negative (Negative); Ketones Urine Negative (Negative); Leukocyte Esterase Ur Negative LEU/UL (Negative); Nitrate Urine Negative (Negative); Non Pathogenic Casts 0-2; Protein Urine 1+ mg/dL (Negative); RBC Urine 0-2 /hpf (0-2); Specific Grav Ur 1.025 (1.001-1.035); Squamous Epithelial Cell Urine None Seen /hpf (Few); WBC Urine 0-5 /hpf (0-3)
[2024-06-12 08:43] LABS: INR 0.9; Prothrombin Time 12.7 Seconds (11.1-14.7)
[2024-06-12 08:44] LABS: Partial Thromboplastin Time 31.3 Seconds (22.3-36.8)
[2024-06-12 08:46] LABS: Anion Gap 11 mmol/L (4-12); Blood Urea Nitrogen 17 mg/dL (9-20); Calcium 9.4 mg/dL (8.4-10.2); Carbon Dioxide 25 mmol/L (22-30); Chloride 102 mmol/L (98-107); Estimated Glomerular Filt Rate > 60; Glucose 103 mg/dL (65-110); Potassium 3.7 mmol/L (3.4-5.0); Sodium 138 mmol/L (137-145)
[2024-06-12 09:04] LABS: Hematocrit 50.5 % (42.0-52.0); Hemoglobin 17.1 g/dL (14.0-18.0); Mean Corpuscular HGB Conc 33.9 g/dl (32-36); Mean Corpuscular Hemoglobin 30.6 pg (26-34); Mean Corpuscular Volume 90.5 fl (80-100); Mean Platelet Volume 8.9 fl (7.4-10.4); Platelet Count Result 315 k/mm3 (150-375); Red Blood Count 5.58 M/mm3 (4.6-6.20); Red Cell Distribution Width 13.4 % (11.5-14.5); White Blood Count 8.5 K/mm3 (4.5-10.0)
== END 2024-06-12 07:52 | disposition home or self-care (01) ==
PROVIDERS: PCP Family Medicine; Visit Provider Neurological Surgery
DX: T85.192A Other mechanical complication of implanted electronic neurostimulator of spinal cord electrode (lead), initial encounter (principal); X58.XXXA Exposure to other specified factors, initial encounter
CPT/HCPCS: 36415; 80048; 81001; 85027; 85610; 85730

== ENCOUNTER 2024-07-29 06:53 | Outpatient (CLI) | payer OTHER, SELFPAY ==
--- NOTE | ~2024-07-29 | MR_ITS ---
MRI of the thoracic spine Clinical History: Neoplasm of uncertain behavior Technique: Axial T2-weighted and gradient images, and sagittal T1-weighted, T2-weighted, and STIR peter ges were acquired. Following intravenous administration of 20 cc MultiHance gadolinium, T1-weighted f at-sat imaging was performed in the axial and sagittal planes. Findings: There is no fracture or subluxation of the thoracic spine. Vertebral bodies maintain normal height and alignment. No suspicious bone marrow signal abnormality seen. Marrow abnormality at the i nferior aspect of T9 is related to inferior T9 endplate Schmorl's node. There is been resection of portion of the T8 spinous process, with associated presumed postoperative seroma in the posterior soft tissues, measuring approximately 2.9 x 1.2 x 5.3 cm in extent. No significant disc bulge or herniation seen at any thoracic level. No spinal canal stenosis or cord compression seen at any thoracic level. Neural foramina are preserved throughout the thoracic spine. Paravertebral soft tissues are otherwise unremarkable, aside from aforementioned postoperative change /seroma. Impression: Status post apparent resection of the T8 spinous process, with 2.9 x 1.2 x 5.3 cm irregular postopera tive seroma in the posterior subcutaneous soft tissues. Inferior T9 endplate Schmorl's noted. Reviewed, dictated and finalized at [facility]. FILER Impression: Status post apparent resection of the T8 spinous process, with 2.9 x 1.2 x 5.3 cm irregular postoperative seroma in the posterior subcutaneous soft tissues. Inferior T9 endplate Schmorl's noted.
--- OUTSIDE RECORDS SUMMARY | 2024-08-03 14:49 | XMS_ITS | Continuity of Care Document ---
Author Name [facility] Organization [facility] Care Team Providers Care Sales Counselor Name Role Phone [facility] Unavailable Unavailable Problems Combined list of problems from Department of Defense and Veterans Affairs facilities. It does not include entries that were removed or entered in error. Problem Status Onset Date Problem Type Date of Resolution Comments Source visit for: screening exam pulmonary tuberculosis Inactive Condition ppd read - zero mm DoD hyperlipidemia Active Condition DoD Patient Education - Self-Examination Of Testes Active Condition [facility] Guidance: Concerns About Inadequate Physical Activity Inactive Condition DoD Patient Education Dietary Inactive Condition [facility] Patient Counseling: Inactive Condition [facility] essential hypertension benign Active Condition [facility] visit for: services physical Inactive Condition [facility] Patient Education - HIV Active Condition [facility] visit for: screening exam lipoid disorders Inactive Condition [facility] sexually active high-risk Active Condition [facility] Patient Education - Alcohol Inactive Condition [facility] Guidance: Concerns About Unsafe Sexual Practices Active Condition [facility] visit for: administrative purpose Inactive Condition [facility] bone neoplasm, benign - osteoid osteoma Active Condition Recommend pt talk w/ Dr Lozada re: change in pain. Rec cont percocet and wt lifting restrictions for 4 weeks. [facility] midback pain Active Condition 1. MRI of thoracic and lumbar region - upon review consider for thoracic STEVE vs Rib block2. Trigger Point Injection Today3. continue NSAIDS4. Pamelor qhs5. TENS unit6. Lidoderm7. consider AED and Ultram if no relief and non organic findings on MRI. [facility] Allergies, Adverse Reactions, Alerts Combined list of allergies from Department of Defense and Veterans Affairs facilities. It does not include entries that were removed or entered in error. Substance Category Reaction Severity Reaction type Status Date Reported Comments Source No Known Allergies Drug allergy (disorder) active 8 [facility] Immunizations Combined list of available immunizations from the Department of Defense and Veterans Affairs facilities. Immunization Series Date Given Administered By Site Reaction Lot Number CVX Code Drug Abrasive Band Winder Status Comments Source tuberculin skin test; purified protein derivative solution, intradermal 1 2006 MARCELO MCKEON [id number] [place] (PD) complet ed tuberculi n skin test; purified protein derivativ e solution, intraderm al DoD influenza virus vaccine, split virus (incl. purified surface antigen)-reti red CODE 0 2005 [id number] Other (OTH) complet ed influenza virus vaccine, split virus (incl. purified surface antigen)- retired CODE DoD typhoid Vi capsular polysaccharid e vaccine 0 2005 [id number] Other (OTH) complet ed typhoid Vi capsular polysacch aride vaccine DoD influenza virus vaccine, split virus (incl. purified surface antigen)-reti red CODE 0 2005 [id number] 15 Other (OTH) complet ed influenza virus vaccine, split virus (incl. purified surface antigen)- retired CODE DoD vaccinia (smallpox) vaccine 1 2005 [id number] OctavianoCarl ([facility]) complet ed vaccinia (smallpox ) vaccine DoD typhoid Vi capsular polysaccharid e vaccine 2 2005 UNKNOWN 101 Unknown (UNK) comple t ed typhoid Vi capsular polysacch aride vaccine DoD influenza virus vaccine, split virus (incl. purified surface antigen)-reti red CODE 0 2004 [id number] Other (OTH) complet ed influenza virus vaccine, split virus (incl. purified surface antigen)- retired CODE DoD influenza virus vaccine, split virus (incl. purified surface antigen)-reti red CODE 0 2004 [id number] Other (OTH) complet ed influenza virus vaccine, split virus (incl. purified surface antigen)- retired CODE DoD hepatitis B vaccine, adult dosage 3 2003 [id number] 43 Other (OTH) complet ed hepatitis B vaccine, adult dosage DoD measles, mumps and rubella virus vaccine 1 2003 UNKNOWN 03 Unknown (UNK) comple t ed measles, mumps and rubella virus vaccine DoD typhoid vaccine, parenteral, other than acetone-kille d, dried 1 2002 [id number] Other (OTH) complet ed typhoid vaccine, parentera l, other than acetone-k illed, dried DoD yellow fever vaccine 1 2002 UNKNOWN 37 Unknown (UNK) comple t ed yellow fever vaccine DoD hepatitis A and hepatitis B vaccine 2 2002 UNKNOWN 104 Unknown (UNK) comple t ed hepatitis A and hepatitis B vaccine DoD tetanus and diphtheria toxoids, adsorbed, preservative free, for adult use (2 Lf of tetanus toxoid and 2 Lf of diphtheria toxoid) 1 2002 UNKNOWN 09 Unknown (UNK) comple t ed tetanus and diphtheri a toxoids, adsorbed, preservat anya free, for adult use (2 Lf of tetanus toxoid and 2 Lf of diphtheri a toxoid) DoD poliovirus vaccine, inactivated 1 2002 UNKNOWN 10 Unknown (UNK) comple t ed polioviru s vaccine, inactivat ed DoD meningococcal polysaccharid e vaccine (MPSV4) 1 2002 UNKNOWN 32 Unknown (UNK) comple t ed meningoco ccal polysacch aride vaccine (MPSV4) DoD hepatitis A and hepatitis B vaccine 1 2002 UNKNOWN 104 Unknown (UNK) comple t ed hepatitis A and hepatitis B vaccine DoD Encounters Combined list of: 1) Encounters from Department of Veterans Affairs facilities going back up to thelast 18 months. 2) Encounters from the Department of Defense facilities going back up to 280 months. Location Location Details Encounter Type Encounter Number Reason For Visit Attending Provider ADM Date DC Date Status Disposition Source [facility](Pain Manag NMCP) OUTPATIENT [id number] JOHANA PTCORA MCGRAW 08/30 Released w/o Limitations [facility](April n Manag NMCP) [facility](Hearing Cons Ricardo Sta) OUTPATIENT [id number] DENG VILLANUEVA V 10/06 Released w/o Limitations [facility](Hea ring Cons Ricardo Sta) [facility](Thoraci c NMCP) OUTPATIENT [id number] T9 osteoid osteoma SARAH LEMOS 12/27 Released w/o Limitations [facility](Tho racic NMCP) [facility](Thoraci c NMCP) OUTPATIENT [id number] CONSENT FOR [place] SARAH LEMOS 01/03 Released w/o Limitations [facility](Tho racic NMCP) [facility] DIRECT TO [facility] FROM OTHER THAN ER OR [facility] [id number] MARTA LOZDAA 01/[address] [facility] h(Thoraci c NMCP) OUTPATIENT [id number] FU THORAC[place]/NAVEED MARY ELLEN FELICIANO E SARAH LEMOS 01/17 Released w/o Limitations [facility](Tho racic NMCP) [facility], [place]) OUTPATIENT [id number] PHA PART 1. PT INSTRUC YESSICA ON FASTING AND RECORD POLICY. MELVI MARTÍNEZ 02/22 Released w/o Limitations [facility] [place]) [facility], [place]) OUTPATIENT [id number] PART 2 EDUARDO MARTELL 02/28 Immediate Referral [facility] [place]) [facility](Phys Exam [place]) OUTPATIENT [id number] Separat ion physica l RUBEN RAHMAN 03/01 Released w/o Limitations [facility](Phy s Exam [place]) [facility](Immuniz ations [facility]) OUTPATIENT [id number] ppd MARCELO MCKEON 03/02 Released w/o Limitations [facility](Imm unizati ons [facility] ) [facility](Immuniz ations [facility]) OUTPATIENT [id number] ppd check MARCELO MCKEON 03/05 Released w/o Limitations [facility](Imm unizati ons [facility] ) [facility] Outpatient Encounter [id number] 1 11/05 [facility] Procedures Combined list of: 1) Procedures from Department of Veterans Affairs facilities going back up to thelast 18 months, not all VA non-surgical procedures are included; 2) All procedures from the Department of Defense facilities. Procedure Procedure Type Code Date Perfomer Comments Sour e Skin Test Anergy Tuberculin Intradermal Skin Test Anergy Tuberculin Intradermal 43089 03/02/2007 MARCELO MCKEON [facility] Most Recent Systolic BP > or = 140 mmHg Most Recent Systolic BP > or = 140 mmHg 3077F 02/28/2007 EDUARDO MARTELL DoD Screening Test Of Visual Acuity, Quantitative, Bilateral Screening Test Of Visual Acuity, Quantitative, Bilateral 33110 02/28/2007 EDUARDO MARTELL [facility] SCREENING TEST OF VISUAL ACUITY, QUANTITATIVE, BILATERAL 06/03/2003 DoD DETERMINATION OF REFRACTIVE STATE 05/14/2003 DoD FITTING OF SPECTACLES, EXCEPT FOR APHAKIA; MONOFOCAL 02/20/2003 DoD SKIN TEST; TUBERCULOSIS, INTRADERMAL 03/02/2007 DoD MOST RECENT SYSTOLIC BLOOD PRESSURE GREATER THAN OR EQUAL TO 140 MM HG (HTN, CKD, CAD) (DM) 02/28/2007 DoD INCISION OF CHEST WALL 01/09/2007 DoD FIBER-OPTIC BRONCHOSCOPY 01/09/2007 DoD COMPUTERIZED AXIAL TOMOGRAPHY OF THORAX 01/09/2007 DoD LOCAL EXCISION OF LESION OR TISSUE OF OTHER BONE, EXCEPT FACIAL BONES 01/09/2007 DoD Social History Combined list of available smoking, tobacco, and other social history from Department of Defense and Veterans Affairs facilities. Social History Type Response Date Comment Sour e This section is an empty social history section. DoD
--- OUTSIDE RECORDS SUMMARY | 2024-08-03 14:49 | XMS_ITS ---
Author Name [facility] [place] Organization [facility] [place] Address [address] [place] [address] Support Name Relationship Address Phone UNKNOWN Emergency Contact Unknown Unavailabl e Insurance Providers: All historical and current Section Date Range: From patient's date of to the date document was created. This section includes the names of all active insurance providers for the patient. Insurance Provider Type of Coverage Plan Name Start of Policy Coverage End of Policy Coverage Group Number Member ID Insurance Provider's Telephone Number Policy Guadarrama's Name Patient's Relationship to Policy Guadarrama [employer]) PRESCRIPT ION RX PLAN Feb 12, 2008 [facility] [id number] [phone] MORTEZALAMIN PATIENT [facility] Feb 12, 2008 [id number] [phone] MORTEZALAMIN PATIENT [facility] Feb 12, 2008 [id number] MORTEZA LAMIN SPOUSE Selected Encounter This section includes the information on record at [place] for the Encounter. Date/Time Encounter Type Encounter Description Reason Pro vider Source Nov 06, 2023 05:24 PM Outpatient Encounter ADMIN PAT ACTIVTIES (MASNONCT) IHE Encounter Template Text not used by [facility] Encounter Notes: All associated encounter notes This section contains the clinical notes associated to the Encounter. Date/Time Encounter Note(s) Provider Source Nov 06, 2023 05:25 PM PRIMARY CARE SASHA RS: LOCAL TITLE: PC NEW PATIENT NO CONTACT LETTER STL STANDARD TITLE: PRIMARY CARE LETTERS DATE OF NOTE: NOV 06, 2023@17:25 ENTRY DATE: NOV 06, 2023@17:25:27 AUTHOR: FLORES WHITING EXP COSIGNER: URGENCY: STATUS: COMPLETED [facility] [address] [place] [address] NOV 06, 2023 JUAN PRO [address] [place], [place] [address] Dear Juan Pro, Thank you for your interest in establishing care with a Primary Care Provider at the [facility]. Your Primary Care Provider is the clinical leader of your Patient Aligned Care Team (PACT). Your PACT Team manages and coordinates your comprehensive health care services. Primary Care includes, but is not limited to: diagnosis and management of acute and chronic health conditions, health promotion, disease prevention, overall care management, post-deployment care, and patient and caregiver education. If you would like more information, please visit [email or web address]. We have been unsuccessful in our attempts to contact you to schedule your initial appointment. Based on your current residence, the clinic recommended for your primary care needs is: [place] [address] We are happy to accommodate your request with another clinic, if needed. Please call to schedule your initial appointment. Thank you for your service, and we look forward to hearing from you. Sincerely, FLORES WHITING ADVANCED SKINNING MACHINE FEEDER JUAN PRO DERECIA L [facility] Nov 06, 2023 05:24 PM ADMINISTRATIVE NOT E: LOCAL TITLE: SCHEDULING NOTE ST STANDARD TITLE: ADMINISTRATIVE NOTE DATE OF NOTE: NOV 06, 2023@17:24 ENTRY DATE: NOV 06, 2023@17:24:15 AUTHOR: FLORES WHIITNG EXP COSIGNER: URGENCY: STATUS: COMPLETED Additional comments: Called vet, no answer no voicemail left. Sending letter for scheduling at [facility] location. [facility] ADDITIONAL RESULTS FROM SCHEDULING ATTEMPTS: /jaydon/ FLORES WHITING ADVANCED SKINNING MACHINE FEEDER Signed: 11/06/2023 17:25 FLORES WHITING [facility]
--- OUTSIDE RECORDS SUMMARY | 2024-08-03 14:51 | XMS_ITS | Referral Summary ---
Author Organization [facility] Address [address] [place] [address] Care Team Providers Care Valet Service Attendant Name Role Phone Roxanna Moreno MD Primary Care Provider [phone] Source Comments [facility],non-owned Affiliates and Associated Physician Practices is amultiple site organization consisting of ambulatory clinics and hospital sitesin [place], [place], [place] and [place]. This disclosure is being madepursuant to the Care Everywhere program and may not contain all information available regarding this patient. Last updated 18.[facility] Allergies No known active allergies Medications * Be aware that medications may not be up to date on this document. Alwaysverify current medications with the patient. Medication Sig Dispensed Refills Start Date End Date Status ondansetron (ZOFRAN) 4 MG tablet Take 1 Tab by mouth every 4 hours as needed for Nausea/Vomiting. 10 Tab 0 02/04/2013 Active hydrocodone-acetaminop hen 5-500 MG tablet Take 1-2 Tabs by mouth 4 times daily as needed for Pain. 20 Tab 0 02/04/2013 Active tamsulosin CR 24hr (FLOMAX) 0.4 MG capsule Take 1 Cap by mouth once daily. Take 30 minutes after a meal at the same time each day. 30 Cap 5 02/04/2013 Active ibuprofen (MOTRIN) 800 MG tablet Take 1 Tab by mouth 3 times daily as needed for Pain. 20 Tab 0 02/04/2013 Active Social History Tobacco Use Types Packs/Day Years Used Date Smoking Tobacco: Never Smokeless Tobacco: Current Chew Alcohol Use Standard Drinks/Week Comments No 0 (1 standard drink = 0.6 oz pur e alcohol) Sex and Gender Information Value Date Recorded Sex Assigned at Not on file Gender Identity Not on file Sexual Orientation Not on file Last Filed Vital Signs Vital Sign Reading Time Taken Comments Blood Pressure 132/85 02/04/2013 12:33 PM CDT Pulse 80 02/04/2013 12:33 PM CDT Temperature 36.9 ??C (98.4 ??F) 02/04/2013 12:33 PM C DT Respiratory Rate 18 02/04/2013 12:33 PM CDT Oxygen Saturation 100% 02/04/2013 12:33 PM CDT Inhaled Oxygen Concentration - - Weight 117.9 kg (260 lb) 02/04/2013 9:17 AM CDT Height 180.3 cm (5' 11 ) 02/04/2013 9:17 AM CDT Body Mass Index 36.26 02/04/2013 9:17 AM CDT Plan of Treatment Not on file Care Teams Valet Service Attendant Relationship Specialty Start Date End Date Roxanna Moreno MD [address] [place] [place] [id number] PCP - General Family Medicine 02/04/13
--- OUTSIDE RECORDS SUMMARY | 2024-08-03 14:51 | XMS_ITS | Patient Health Summary ---
Author Organization [facility] Address [address] [place] [address] Care Team Providers Care Parking Meter Installer Name Role Phone Roxanna Moreno MD Primary Care Provider [phone] Note from [facility],non-owned Affiliates and Associated Physician Practices is amultiple site organization consisting of ambulatory clinics and hospital sitesin [place], [place], [place] and [place]. This disclosure is being madepursuant to the Care Everywhere program and may not contain all information available regarding this patient. Last updated 18.[facility] Allergies No known active allergies Medications * Be aware that medications may not be up to date on this document. Alwaysverify current medications with the patient. * ondansetron (ZOFRAN) 4 MG tablet(Started 02/04/2013) Take 1 Tab by mouth every 4 hours as needed for Nausea/Vomiting. * hydrocodone-acetaminophen 5-500 MG tablet(Started 02/04/2013) Take 1-2 Tabs by mouth 4 times daily as needed for Pain. * tamsulosin CR 24hr (FLOMAX) 0.4 MG capsule(Started 02/04/2013) Take 1 Cap by mouth once daily. Take 30 minutes after a meal at the same time each day. 5 refills left * ibuprofen (MOTRIN) 800 MG tablet(Started 02/04/2013) Take 1 Tab by mouth 3 times daily as needed for Pain. Social History Tobacco Use Types Packs/Day Years [...] Mass Index 36.26 02/04/2013 9:17 AM CDT Procedures * CT RENAL STONE(Performed 02/04/2013) Performed for Flank pain * COMPREHENSIVE METABOLIC PANEL(Performed 02/04/2013) * CBC W AUTO DIFFERENTIAL(Performed 02/04/2013) * URINALYSIS REFLEX MICROSCOPIC REFLEX CULTURE(Performed 02/04/2013) * CULTURE URINE(Performed 02/04/2013) Results * CT RENAL STONE (02/04/2013 11:50 AM CDT) Anatomical Region Laterality Modality Abdomen Computed Tomogra phy 02/04/2013 11:5 3 AM CDT Impressions 02/04/2013 11:53 AM CDT 3 mm obstructing calculus within the left ureterovesical junction. This is causing mild hydronephrosis. Narrative 02/04/2013 11:[address] abdomen and pelvis without contrast Clinical Indication: Acute abdominal pain, flank pain Technique: Axial CT images from the lung bases through the pubic symphysis were obtained without intravenous contrast. Findings: There is a 3 mm obstructing calculus within the left ureterovesical junction. This is causing mild left hydroureteronephrosis. No other renal stones are identified. The liver, gallbladder, spleen, adrenal glands, and pancreas are unremarkable. The bowel are normal in caliber. The appendix is normal. A spinal stimulator is present. The bony structures are intact. Procedure Note Colin Lora MD - 02/04/2013 CT abdomen and pelvis without contrast Clinical Indication: Acute abdominal pain, flank pain Technique: Axial CT images from the lung bases through the pubic symphysis were obtained without intravenous contrast. Findings: There is a 3 mm obstructing calculus within the left ureterovesical junction. This is causing mild left hydroureteronephrosis. No other renal stones are identified. The liver, gallbladder, spleen, adrenal glands, and pancreas are unremarkable. The bowel are normal in caliber. The appendix is normal. A spinal stimulator is present. The bony structures are intact. IMPRESSION 3 mm obstructing calculus within the left ureterovesical junction. This is causing mild hydronephrosis. Larissa SMITH CT ORDERABLES * CBC W AUTO DIFFERENTIAL (02/04/2013 9:39 AM CDT) WBC 7.2 4.4 - 10.7 x10^9/L 02/04/2013 9:55 AM CDT [facility] RBC 5.16 3.80 - 5.40 x10^12/L 02/04/2013 9:55 AM CDT [facility] Hemoglobin 15.5 12.0 - 17.6 g/dL 02/04/2013 9:55 AM CDT [facility] Hematocrit 44.7 35.2 - 51.7 % 02/04/2013 9:55 AM CDT [facility] MCV 86.6 80.7 - 98.3 fl 02/04/2013 9:55 AM CDT [facility] MCH 30.0 26.7 - 34.0 pg 02/04/2013 9:55 AM CDT [facility] MCHC 34.7 30.8 - 35.9 gm/dL 02/04/2013 9:55 AM CDT [facility] Platelet Count 309 153 - 416 x10^9/L 02/04/2013 9:55 AM CDT [facility] RDW-CV 13.5 12.1 - 14.9 % 02/04/2013 9:55 AM CDT [facility] Neutrophils % 67 44 - 73 % 02/04/2013 9:55 AM CDT [facility] Lymphocytes % 24 20 - 43 % 02/04/2013 9:55 AM CDT [facility] Monocytes % 8 5 - 13 % 02/04/2013 9:55 AM CDT [facility] Eosinophils % 1 0 - 6 % 02/04/2013 9:55 AM CDT [facility] Basophils % 1 0 - 2 % 02/04/2013 9:55 AM CDT [facility] Neutrophil Absolute 4.77 2.01 - 7.14 x10^9/L 02/04/2013 9:55 AM CDT [facility] Lymphocytes Absolute 1.70 1.07 - 3.94 x10^9/L 02/04/2013 9:55 AM CDT [facility] Monocytes Absolute 0.55 0.26 - 1.07 x10^9/L 02/04/2013 9:55 AM CDT [facility] Eosinophils Absolute 0.08 0 - 0.47 x10^9/L 02/04/2013 9:55 AM CDT [facility] Basophils Absolute 0.06 0 - 0.08 x10^9/L 02/04/2013 9:55 AM CDT [facility] Blood specimen (specimen) BLOOD SPECIMEN / Unknown 02/04/2013 9:39 AM CDT 02/04/2013 9:45 AM CDT Leonardo Collier MD LAB - HEMATOLOGY ORD ERABLES Performing Organization Address City/State/[facility] Co de Phone Number [facility] [address] [place] [address] * COMPREHENSIVE METABOLIC PANEL (02/04/2013 9:39 AM CDT) Glucose 105 74 - 106 mg/dL 02/04/2013 10:10 AM CDT [facility] Sodium 141 136 - 145 mmol/L 02/04/2013 10:10 AM [facility] Potassium 4.2 3.5 - 5.1 mmol/L 02/04/2013 10:10 AM CDT [facility] Chloride 106 98 - 107 mmol/L 02/04/2013 10:10 AM CDT [facility] CO2 27 22 - 31 mmol/L 02/04/2013 10:10 AM CDT [facility] Calcium 9.5 8.5 - 10.1 mg/dL 02/04/2013 10:10 AM CDT [facility] Anion Gap 8 5 - 15 mmol/L 02/04/2013 10:10 AM CDT [facility] BUN 16 7 - 21 mg/dL 02/04/2013 10:10 AM CDT [facility] Creatinine 0.89 0.50 - 1.30 mg/dL 02/04/2013 10:10 AM [facility] eGFR by MDRD >60 >60 ml/min/1.7 3m2 02/04/2013 10:10 AM CDT [facility] eGFR by MDRD >60 >60 ml/min/1.7 3m2 02/04/2013 10:10 AM CDT [facility] Alkaline Phosphatase 92 38 - 126 U/L 02/04/2013 10:10 AM CDT [facility] ALT 43 12 - 78 U/L 02/04/2013 10:10 AM CDT [facility] AST 19 5 - 40 U/L 02/04/2013 10:10 AM CDT [facility] Protein Total 7.8 6.4 - 8.2 gm/dL 02/04/2013 10:10 AM CDT [facility] Albumin 4.4 3.4 - 5.0 gm/dL 02/04/2013 10:10 AM CDT [facility] Bilirubin Total 0.4 0.2 - 1.0 mg/dL 02/04/2013 10:10 AM CDT [facility] Blood specimen (specimen) BLOOD SPECIMEN / Unknown 02/04/2013 9:39 AM CDT 02/04/2013 9:45 AM CDT Leonardo Collier MD LAB - CHEMISTRY KALYANI LARA [facility] Organization Address City/State/ZIP Co de Phone Number [facility] [address] [place] [address] * (ABNORMAL) URINALYSIS ROUTINE W/REFLEX TO CULTURE (02/04/2013 9:39 AM CDT) Color UA Yellow Straw, Yellow, Dark Yellow 02/04/2013 9:54 AM CDT [facility] Clarity UA Clear 02/04/2013 9:54 AM CDT [facility] Specific [place] UA 1.032(H) 1.005 - 1.030 02/04/2013 9:54 AM CDT [facility] pH UA 6.0 5.0 - 8.0 02/04/2013 9:54 AM CDT [facility] Protein UA 1+(A) Negative 02/04/2013 9:54 AM CDT [facility] Blood UA 3+(A) Negative 02/04/2013 9:54 AM CDT [facility] Leukocyte UA Negative Negative 02/04/2013 9:54 AM CDT [facility] Nitrite UA Negative Negative 02/04/2013 9:54 AM CDT [facility] Glucose UA Negative Negative 02/04/2013 9:54 AM CDT [facility] Ketone UA Negative Negative 02/04/2013 9:54 AM CDT [facility] Bilirubin UA Negative Negative 02/04/2013 9:54 AM CDT [facility] Urobilinogen UA 0.2 0.1 - 1.0 EU/dL 02/04/2013 9:54 AM CDT [facility] WBC UA Auto 0-2 0-2, 2-5 #/hpf 02/04/2013 9:54 AM CDT [facility] RBC UA Auto 5-10(A) 0-2, 2-5 #/hpf 02/04/2013 9:54 AM CDT [facility] Epithelial Cell UA Auto 0-2 0-2, 2-5 #/hpf 02/04/2013 9:54 AM CDT [facility] Bacteria UA Auto None seen None seen 02/04/2013 9:54 AM CDT [facility] Hyaline Casts UA Auto 2-5(A) 0 - 2 #/lpf 02/04/2013 9:54 AM CDT [facility] Reflex Status Culture not indicated 02/04/2013 9:54 AM CDT [facility] Urine specimen (specimen) URINE SPECIMEN OBTAINED BY CLEAN CATCH PROCEDURE / Unknown 02/04/2013 9:39 AM CDT 02/04/2013 9:45 AM CDT Narrative [facility] - 02/04/2013 9:54 AM CDT Results are potentially invalid due to less than 12 mL of specimen received. Leonardo Collier MD LAB - URINALYSIS ORD ERABLES [facility] [address] [place] [address] * CULTURE URINE (02/04/2013 9:39 AM CDT) Culture <10,000 CFU/mL normal urogenital kadeem 02/06/2013 7:57 AM CDT [facility] Urine specimen (specimen) URINE SPECIMEN OBTAINED BY CLEAN CATCH PROCEDURE / Unknown 02/04/2013 9:39 AM CDT 02/04/2013 9:45 AM CDT Leonardo Collier MD LAB - MICROBIOLOGY O RDERAKADI [facility] [address] [place] [address], [facility] Care Teams Parking Meter Installer Relationship Specialty Start Date End Date Roxanna Moreno MD [address] [place] [address] PCP - General Family Medicine 02/04/13
--- OUTSIDE RECORDS SUMMARY | 2024-08-03 14:51 | XMS_ITS | Clinical Summary ---
Author Organization [facility] [employer] Address [address] [place] [address] Care Team Providers Care Fruit Culler Name Role Phone Roxanna Moreno MD Primary Care Provider [phone] Source Comments [facility] [employer],non-owned Affiliates and Associated Physician Practices is amultiple site organization consisting of ambulatory clinics and hospital sitesin [place], [place], [place] and [place]. This disclosure is being madepursuant to the Care Everywhere program and may not contain all information available regarding this patient. Last updated 18.[facility] [employer] [facility] Allergies No known active allergies Medications * [...] 02/04/2013 9:17 AM CDT Plan of Treatment Health Maintenance Due Date Last Done Comments COLOGUARD (AGES 45-75) - COL ON CA SCREENING 1978 COLON MONITORING 1978 COLONOSCOPY - COLON CA SCREENING 1978 CT COLONOGRAPHY - COLON CA SCREENING 1978 Colorectal Cancer Screening 1978 FIT - COLON CA SCREENING 1978 FLEX SIG - COLON CA SCREENING 1978 LIPID TESTING 1978 HIV SCREENING 1993 HEPATITIS C SCREENING 09/02/1996 DTAP/TDAP/TD VACCINES (1 - Tdap) 1997 HEPATITIS B VACCINE (1 of 3 - 19+ 3-dose series) 1997 DEPRESSION SCREENING 08/14/2023 COVID-19 VACCINE (1 - 2023-2 5 season) 2024 INFLUENZA VACCINE (#1) 2024 ZOSTER VACCINE (1 of 2) 2028 HIB VACCINE Aged Out No longer eligi ble based on patient's age to complete this topic HPV VACCINE Aged Out No longer eligi ble based on patient's age to complete this topic MENINGOCOCCAL VACCINE Aged Out No michelle ray eligible based on patient's age to complete this topic PNEUMOCOCCAL VACCINE Aged Out No long er eligible based on patient's age to complete this topic Care Teams Fruit Culler Relationship Specialty Start Date End Date Roxanna Moreno MD [address] [place] [address] PCP - General Family Medicine 02/04/13
--- OUTSIDE RECORDS SUMMARY | 2024-08-03 14:51 | XMS_ITS | Encounter Summary ---
Author Organization [facility] Address [address] [place] [address] Care Team Providers Care Ict Security Specialist Name Role Phone Roxanna Moreno MD Primary Care Provider [phone] Reason for Visit * Reason Comments Pain Abdominal Pt reports LLQ pain, worse with urination, reports frequency and urgency. Encounter Details Date Type Department Care Team (Late st Contact Info) Description 02/04/2013 9:22 AM CDT - 02/04/2013 12:33 PM CDT Emergency ER at [address] [id number] Leonardo Collier MD [address] [place] [address] Emergency Room [place], [place] [id number] Flank pain; Nephrolithiasis Discharge Disposition: Home or Self Care Social History Tobacco Use Types Packs/Day Years Used Date Smoking Tobacco: Never Smokeless Tobacco: Current Chew Alcohol Use Standard Drinks/Week Comments No 0 (1 standard drink = 0.6 oz pur e alcohol) Sex and Gender Information Value Date Recorded Sex Assigned at Not on file Gender Identity Not on file Sexual Orientation Not on file documented as of this encounter Last Filed Vital Signs Vital Sign Reading [...] Mass Index 36.26 02/04/2013 9:17 AM CDT documented in this encounter Discharge Instructions * Discharge Instructions* Astrid Taylor PA - 02/04/2013 12:04 PM CDT Images from the original note were not included. Abdominal Pain Abdominal pain can be caused by many things. Your caregiver decides the seriousness of your pain byan examination and possibly blood tests and X-rays. Many cases can be observed and treated at home.Most abdominal pain is not caused by a disease and will probably improve without treatment. However, in many cases, more time must pass before a clear cause of the pain can be found. Before that point, it may not be known if you need more testing, or if hospitalization or surgery is needed. HOME CARE INSTRUCTIONS ?? Do not take laxatives unless directed by your caregiver. ?? Take pain medicine only as directed by your caregiver. ?? Only take [id number]-[id number] or prescription medicines for pain, discomfort, or fever as directed by your caregiver. ?? Try a clear liquid diet (broth, tea, or water) for as long as directed by your caregiver. Slowlymove to a bland diet as tolerated. SEEK IMMEDIATE MEDICAL CARE IF: ?? The pain does not go away. ?? You have a fever. ?? You keep throwing up (vomiting). ?? The pain is felt only in portions of the abdomen. Pain in the right side could possibly be appendicitis. In an adult, pain in the left lower portion of the abdomen could be colitis or diverticulitis. ?? You pass bloody or black tarry stools. MAKE SURE YOU: ?? Understand these instructions. ?? Will watch your condition. ?? Will get help right away if you are not doing well or get worse. Document Released: 05/10/2006 Document Revised: 04/11/2012 Document Reviewed: 03/18/2009 ExitCare?? Patient Information ??2012 [employer].Kidney Stones Kidney stones (ureteral lithiasis) are deposits that form inside your kidneys. The intense pain is caused by the stone moving through the urinary tract. When the stone moves, the ureter goes into spasm around the stone. The stone is usually passed in the urine. CAUSES ?? A disorder that makes certain neck glands produce too much parathyroid hormone (primary hyperparathyroidism). ?? A buildup of uric acid crystals. ?? Narrowing (stricture) of the ureter. ?? A kidney obstruction present at (congenital obstruction). ?? Previous surgery on the kidney or ureters. ?? Numerous kidney infections. SYMPTOMS ?? Feeling sick to your stomach (nauseous). ?? Throwing up (vomiting). ?? Blood in the urine (hematuria). ?? Pain that usually spreads (radiates) to the groin. ?? Frequency or urgency of urination. DIAGNOSIS ?? Taking a history and physical exam. ?? Blood or urine tests. ?? Computerized X-ray scan (CT scan). ?? Occasionally, an examination of the inside of the urinary bladder (cystoscopy) is performed. TREATMENT ?? Observation. ?? Increasing your fluid intake. ?? Surgery may be needed if you have severe pain or persistent obstruction. The size, location, and chemical composition are all important variables that will determine the proper choice of action for you. Talk to your caregiver to better understand your situation so that you will minimize the risk of injury to yourself and your kidney. HOME CARE INSTRUCTIONS ?? Drink enough water and fluids to keep your urine clear or pale yellow. ?? Strain all urine through the provided strainer. Keep all particulate matter and stones for your caregiver to see. The stone causing the pain may be as small as a grain of salt. It is very important to use the strainer each and every time you pass your urine. The collection of your stone will allow your caregiver to analyze it and verify that a stone has actually passed. ?? Only take hczz-kbf-txqyzoi or prescription medicines for pain, discomfort, or fever as directed by your caregiver. ?? Make a follow-up appointment with your caregiver as directed. ?? Get follow-up X-rays if required. The absence of pain does not always mean that the stone has passed. It may have only stopped moving. If the urine remains completely obstructed, it can cause lossof kidney function or even complete destruction of the kidney. It is your responsibility to make sure X-rays and follow-ups are completed. Ultrasounds of the kidney can show blockages and the status of the kidney. Ultrasounds are not associated with any radiation and can be performed easily in a matter of minutes. SEEK IMMEDIATE MEDICAL CARE IF: ?? Pain cannot be controlled with the prescribed medicine. ?? You have a fever. ?? The severity or intensity of pain increases over 18 hours and is not relieved by pain medicine. ?? You develop a new onset of abdominal pain. ?? You feel faint or pass out. MAKE SURE YOU: ?? Understand these instructions. ?? Will watch your condition. ?? Will get help right away if you are not doing well or get worse. Document Released: 07/31/2006 Document Revised: 04/11/2012 Document Reviewed: 11/26/2010 ExitCare?? Patient Information ??2012 [employer].Colic An otherwise healthy baby who cries for at least 3 hours a day for more than 3 days a week is said to have colic. Colic spells range from fussiness to agonizing screams and will usually occur late inthe afternoon or in the evening. Between the crying spells, the baby acts fine. Colic usually begins at 2 to 3 weeks of age and can last through 3 to 4 months of age. The cause of colic is unknown. HOME CARE INSTRUCTIONS ?? If you are , do not drink coffee, tea and edwardo. They contain caffeine. ?? Burp your baby after each ounce of formula. If you are , burp your baby every 5 minutes. Always hold your baby while feeding and allow at least 20 minutes for feeding. Keep your baby upright for at least 30 minutes following a feeding. ?? Do not feed your baby every time he or she cries. Wait at least 2 hours between feedings. ?? Check to see if the baby is in an uncomfortable position, is too hot or cold, has a soiled diaper or needs to be cuddled. ?? When trying to comfort a crying baby, a soothing, rhythmic activity is the best approach. Try rocking your baby, taking your baby for a ride in a stroller, or taking your baby for a ride in the car. Monotonous sounds, such as those from an electric fan or a washing machine or vacuum freight car cleaner havealso been shown to help. Do not put your baby in a car seat on top of any vibrating surface (such as a washing machine that is running). If your baby is still crying after more than 20 minutes of gentle motion, let the baby cry himself or herself to sleep. ?? In order to promote nighttime sleep, do not let your baby sleep more than 3 hours at a time during the day. Place your baby on his or her back to sleep. Never place your baby face down or on his or her stomach to sleep. ?? To help relieve your stress, ask your spouse, friend, partner or relative for help. A colicky baby is a two-person job. Ask someone to care for the baby or hire a spool hauler so you have a chance to get out of the house, even if it is only for 1 or 2 hours. If you find yourself getting stressed out, put your baby in the crib where it will be safe and leave the room to take a break. Never shake or hit your baby! SEEK MEDICAL CARE IF: ?? Your baby seems to be in pain or acts sick. ?? Your baby has been crying constantly for more than 3 hours. ?? Your child has an oral temperature above 102?? F (38.9?? C). ?? Your baby is older than 3 months with a rectal temperature of 100.5?? F (38.1?? C) or higher formore than 1 day. SEEK IMMEDIATE MEDICAL CARE IF: ?? You are afraid that your stress will cause you to hurt the baby. ?? You have shaken your baby. ?? Your child has an oral temperature above 102?? F (38.9?? C), not controlled by medicine. ?? Your baby is older than 3 months with a rectal temperature of 102?? F (38.9?? C) or higher. ?? Your baby is 3 months old or younger with a rectal temperature of 100.4?? F (38?? C) or higher. Document Released: 05/10/2006 Document Revised: 04/11/2012 Document Reviewed: 07/02/2010 ExitCare?? Patient Information ??2012 [employer].Ureteral Colic (Kidney Stones) Ureteral colic is the result of a condition when kidney stones form inside the kidney. Once kidney stones are formed they may move into the tube that connects the kidney with the bladder (ureter). Ifthis occurs, this condition may cause pain (colic) in the ureter. CAUSES Pain is caused by stone movement in the ureter and the obstruction caused by the stone. SYMPTOMS The pain comes and goes as the ureter contracts around the stone. The pain is usually intense, sharp, and stabbing in character. The location of the pain may move as the stone moves through the ureter. When the stone is near the kidney the pain is usually located in the back and radiates to the belly (abdomen). When the stone is ready to pass into the bladder the pain is often located in the lower abdomen on the side the stone is located. At this location, the symptoms may mimic those of a urinary tract infection with urinary frequency. Once the stone is located here it often passes into the bladder and the pain disappears completely. TREATMENT ?? Your caregiver will provide you with medicine for pain relief. ?? You may require specialized follow-up X-rays. ?? The absence of pain does not always mean that the stone has passed. It may have just stopped moving. If the urine remains completely obstructed, it can cause loss of kidney function or even complete destruction of the involved kidney. It is your responsibility and in your interest that X-rays and follow- ups as suggested by your caregiver are completed. Relief of pain without passage of the stone can be associated with severe damage to the kidney, including loss of kidney function on that side. ?? If your stone does not pass on its own, additional measures may be taken by your caregiver to ensure its removal. HOME CARE INSTRUCTIONS ?? Increase your fluid intake. Water is the preferred fluid since juices containing vitamin C may acidify the urine making it less likely for certain stones (uric acid stones) to pass. ?? Strain all urine. A strainer will be provided. Keep all particulate matter or stones for your caregiver to inspect. ?? Take your pain medicine as directed. ?? Make a follow-up appointment with your caregiver as directed. ?? Remember that the goal is passage of your stone. The absence of pain does not mean the stone is gone. Follow your caregiver's instructions. ?? Only take hjrl-ucg-rjtauxl or prescription medicines for pain, discomfort, or fever as directed by your caregiver. SEEK MEDICAL CARE IF: ?? Pain cannot be controlled with the prescribed medicine. ?? You have a fever. ?? Pain continues for longer than your caregiver advises it should. ?? There is a change in the pain, and you develop chest discomfort or constant abdominal pain. ?? You feel faint or pass out. MAKE SURE YOU: ?? Understand these instructions. ?? Will watch your condition. ?? Will get help right away if you are not doing well or get worse. Document Released: 05/10/2006 Document Revised: 04/11/2012 Document Reviewed: 01/25/2012 ExitCare?? Patient Information ??2011 [employer].Urine Strainer This strainer is used to catch or filter out any stones found in your urine. Place the strainer under your urine stream. Save any stones or objects that you find in your urine. Place them in a plastic or glass container to show your caregiver. The stones vary in size - some can be very small, so make sure you check the strainer carefully. Your caregiver may send the stone to the lab. When the results are back, your caregiver may recommend medicines or diet changes. Document Released: 05/05/2005 Document Revised: 04/11/2012 Document Reviewed: 06/12/2009 ExitCare?? Patient Information ??2011 [employer]. * Discharge Instructions* Document, Scanned - 02/05/2013 6:03 PM CDT documented in this encounter Medications at Time of Discharge Medication Sig Dispensed Refills Start Date End Date hydrocodone-acetaminophen 5-500 MG tablet Take 1-2 Tabs by mouth 4 times daily as needed for Pain. 20 Tab 0 02/04/2013 ibuprofen (MOTRIN) 800 MG tablet Take 1 Tab by mouth 3 times daily as needed for Pain. 20 Tab 0 02/04/2013 ondansetron (ZOFRAN) 4 MG tablet Take 1 Tab by mouth every 4 hours as needed for Nausea/Vomiting. 10 Tab 0 02/04/2013 tamsulosin CR 24hr (FLOMAX) 0.4 MG capsule Take 1 Cap by mouth once daily. Take 30 minutes after a meal at the same time each day. 30 Cap 5 02/04/2013 documented as of this encounter ED Notes * Leonardo Collier MD - 02/04/2013 11:56 AM CDT 11:56 AM For this patient, I reviewed the CLINICAL RESEARCH PHYSICIAN or PA documentation, procedures (if done), treatment plan, and medical decision making; and I had ugeh-wh-[id number] time with this patient. I have reviewed the information recorded by the scribe and agree with its accuracy and contents--Dr. Collier 02/04/2013 11:56 AM Transcribed by Brandee Randall acting scribe on behalf of Dr. Leonardo Collier 02/04/2013 11:56 AM * Nidhi Gonzalez APRN-CNP - 02/04/2013 11:19 AM CDT Pts family at bedside; Pt resting comfortably at this time, pt reports pain decreased with morphine; Pt awaiting ct scan, verbalizes no other needs. * Astrid Taylor PA - 02/04/2013 9:30 AM CDT Provider contact with the patient: 02/04/2013 09:30 Aleksandar Olsen [id number] [facility] EM[facility]ENCY [facility]PARTMENT History Chief Complaint Patient presents with ??? Pain Abdominal Pt reports LLQ pain, worse with urination, reports frequency and urgency. HPI Comments: No hx of stones Pain Back Primary symptoms include back pain and tenderness. Primary symptoms include No back Injury, no swelling, no deformity, no decreased ROM, no weakness, no numbness, no decreased use, no foreign body suspected, no abscess and no wound drainage.The history is provided by the patient. This is a new problem. Episode onset: 0800 this am. The problem occurs intermittent. The problem has been gradually worsening. The pain is associated with no known injury. There have been no prior injuries to these areas. The pain is present in the lower back. The problem affects the left side. The quality of the pain is described as shooting, stabbing and sharp (comes in waves). Radiates to: left lower quadrant. The pain is severe. Nothing aggravates the symptoms. There has been abdominal pain. There has been nochest pain, no fever, no numbness, no weight loss, no headaches, no abdominal swelling, no bowel incontinence, no perianal numbness, no bladder incontinence, no dysuria, no pelvic pain, no leg pain, no paresthesias, no paresis, no tingling, no weakness and no sciatica .He has tried nothing for the symptoms. The incident occurred at work. 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 Shoulder dislocation No past surgical history on file. No family history on file. History Social History ??? Marital Status: Spouse Name: N/A Number of Children: N/A ??? Years of Education: N/A Occupational History ??? Not on file. Social History Main Topics ??? Smoking status: Never Smoker ??? Smokeless tobacco: Current User Types: Chew ??? Alcohol Use: No ??? Drug Use: No ??? Sexually Active: Not on file Other Topics Concern ??? Not on file Social History Narrative ??? No narrative on file Review of Systems Review of Systems Constitutional: Negative for fever and weight loss. Cardiovascular: Negative for chest pain. Gastrointestinal: Positive for abdominal pain. Negative for bowel incontinence. Genitourinary: Positive for urgency, frequency and flank pain. Negative for bladder incontinence, dysuria and pelvic pain. Musculoskeletal: Positive for back pain. Neurological: Negative for tingling, weakness, numbness, headaches and paresthesias. All other systems reviewed and are negative. Physical Exam BP 154/98 Pulse 82 Temp 97.8 ??F Resp 18 Ht 5' 11 (1.803 m) Wt 260 lb (117.935 kg) BMI36.26 kg/m2 SpO2 100% Physical Exam Nursing note and vitals reviewed. Constitutional: He is oriented to person, place, and time and well-developed, well-nourished, and in no distress. No distress. HENT: Head: Normocephalic and atraumatic. Right Ear: External ear normal. Left Ear: External ear normal. Nose: Nose normal. Mouth/Throat: Oropharynx is clear and moist. No oropharyngeal exudate. Eyes: Conjunctivae and EOM are normal. Pupils are equal, round, and reactive to light. Right eye exhibits no discharge. Left eye exhibits no discharge. Neck: Normal range of motion. Neck supple. Cardiovascular: Normal rate, regular rhythm, normal heart sounds and intact distal pulses. Exam reveals no gallop and no friction rub. No murmur heard. Pulmonary/Chest: Effort normal and breath sounds normal. No respiratory distress. He has no wheezes. He has no rales. He exhibits no tenderness. Abdominal: Soft. Bowel sounds are normal. He exhibits no distension. There is no tenderness. There is no rebound and no guarding. Musculoskeletal: Normal range of motion. He exhibits tenderness (L CVAT). He exhibits no edema. Neurological: He is alert and oriented to person, place, and time. Gait normal. GCS score is 15. Skin: Skin is warm and dry. He is not diaphoretic. Psychiatric: Mood, memory, affect and judgment normal. Medications Current Outpatient Prescriptions Medication Sig Dispense Refill ??? ondansetron (ZOFRAN) 4 MG tablet Take 1 Tab by mouth every 4 hours as needed for Nausea/Vomiting. 10 Tab 0 ??? hydrocodone-acetaminophen 5-500 MG tablet Take 1-2 Tabs by mouth 4 times daily as needed for Pain. 20 Tab 0 ??? tamsulosin CR 24hr (FLOMAX) 0.4 MG capsule Take 1 Cap by mouth once daily. Take 30 minutes after a meal at the same time each day. 30 Cap 5 ??? ibuprofen (MOTRIN) 800 MG tablet Take 1 Tab by mouth 3 times daily as needed for Pain. 20 Tab 0 Procedures Procedures EKG Interpretation Lab Interpretation Oxygen Saturation Interpretation The oxygen saturation level is: 100%. The patient was on Room Air for the saturation measurement. Measurement frequency: Spot Check. Oxygen saturation interpretation is Normal. Intervention(s) used: None. Results for orders placed during the hospital encounter of 02/04/13 URINALYSIS ROUTINE W/REFLEX TO CULTURE Component Value Range Color UA Yellow Straw, Yellow, Dark Yellow Clarity UA Clear Specific [place] UA 1.032 (*) 1.005-1.030 pH UA 6.0 5.0-8.0 Protein UA 1+ (*) Negative Blood UA 3+ (*) Negative Leukocyte UA Negative Negative Nitrite UA Negative Negative Glucose UA Negative Negative Ketone UA Negative Negative Bili UA Negative Negative Urobilinogen UA 0.2 0.1-1.0 EU/dL WBC UA Auto 0-2 0-2, 2-5 #/hpf RBC UA Auto 5-10 (*) 0-2, 2-5 #/hpf EPI CELLS UA Auto 0-2 0-2, 2-5 #/hpf BACTERIA UA Auto None seen None seen HYALINE CASTS UA Auto 2-5 (*) 0-2 #/lpf Reflex Status Culture not indicated CBC W AUTO DIFFERENTIAL Component Value Range WBC 7.2 4.4-10.7 x10^9/L RBC 5.16 3.80-5.40 x10^12/L Hgb 15.5 12.0-17.6 g/dL HCT 44.7 35.2-51.7 % MCV 86.6 80.7-98.3 fl MCH 30.0 26.7-34.0 pg MCHC 34.7 30.8-35.9 gm/dL Plt Ct 309 153-416 x10^9/L RDW-CV 13.5 12.1-14.9 % Neutro 67 44-73 % Lymph 24 20-43 % [place] 8 5-13 % Eos 1 0-6 % Baso 1 0-2 % Neutro Abs 4.77 2.01-7.14 x10^9/L Lymph Abs 1.70 1.07-3.94 x10^9/L [place] Abs 0.55 0.26-1.07 x10^9/L Eosin Abs 0.08 0-0.47 x10^9/L Baso Abs 0.06 0-0.08 x10^9/L COMPREHENSIVE METABOLIC PANEL Component Value Range Glucose 105 74-106 mg/dL Sodium 141 136-145 mmol/L Potassium 4.2 3.5-5.1 mmol/L Chloride 106 98-107 mmol/L CO2 27 22-31 mmol/L Calcium 9.5 8.5-10.1 mg/dL Anion Gap 8 5-15 mmol/L BUN 16 7-21 mg/dL Creatinine 0.89 0.50-1.30 mg/dL eGFR by MDRD >60 >60 ml/min/1.73m2 eGFR by MDRD AFR AMER >60 >60 ml/min/1.73m2 Alk Phos 92 38-126 U/L ALT/SGPT 43 12-78 U/L AST/SGOT 19 5-40 U/L Protein Total 7.8 6.4-8.2 gm/dL Albumin 4.4 3.4-5.0 gm/dL Bili Total 0.4 0.2-1.0 mg/dL CT RENAL STONE Final Result: 3 mm obstructing calculus within the left ureterovesical junction. This is causing mild hydronephrosis. Progress Notes ED Course Medical Decision Making I have reviewed the: Previous Chart, Nursing Notes and Vitals. I have interpreted the following results: Labs, CT Scans and Oxygen Saturation. Orders Placed This Encounter ??? CULTURE URINE ??? CT RENAL STONE ??? URINALYSIS ROUTINE W/REFLEX TO CULTURE ??? CBC W AUTO DIFFERENTIAL ??? COMPREHENSIVE METABOLIC PANEL ??? DISCONTD: acetaminophen (TYLENOL) tablet 650 mg ??? DISCONTD: 0.9% NaCl injection 1-10 mL ??? ondansetron (disintegrating) (ZOFRAN ODT) tablet 4 mg ??? ondansetron (disintegrating) (ZOFRAN ODT) tab ADS Med ??? DISCONTD: 0.9% NaCl infusion ??? ondansetron (ZOFRAN) injection 4 mg ??? ketorolac (TORADOL) injection 30 mg ??? morphine injection 4 mg ??? ondansetron (ZOFRAN) 4 MG tablet ??? hydrocodone-acetaminophen 5-500 MG tablet ??? tamsulosin CR 24hr (FLOMAX) 0.4 MG capsule ??? ibuprofen (MOTRIN) 800 MG tablet Clinical Impression Final diagnoses: Flank pain Nephrolithiasis documented in this encounter Miscellaneous Notes * Miscellaneous Scans - Document, Scanned - 02/05/2013 6:03 PM CDT documented in this encounter Plan of Treatment Not on file documented as of this encounter Procedures Procedure Name Priority Date/Time Associated Diagnosis Comments CT RENAL STONE STAT 02/04/2013 11:50 AM CDT Flank pain CBC W AUTO DIFFERENTIAL STAT 02/04/2013 9:39 AM CDT COMPREHENSIVE METABOLIC PANEL STAT 02/04/2013 9:39 AM CDT URINALYSIS REFLEX MICROSCOPIC REFLEX CULTURE STAT 02/04/2013 9:39 AM CDT CULTURE URINE STAT 02/04/2013 9:39 AM CDT documented in this encounter Results * CT RENAL STONE (02/04/2013 11:50 [...] ureterovesical junction. This is causing mild hydronephrosis. Astrid SMITH CT ORDERABLES * COMPREHENSIVE METABOLIC PANEL (02/04/2013 9:39 AM CDT) Glucose 105 74 - 106 mg/dL 02/04/2013 10:10 AM CDT [facility] Sodium 141 136 - 145 mmol/L 02/04/2013 10:10 AM CDT [facility] Potassium 4.2 3.5 - 5.1 mmol/L 02/04/2013 10:10 AM CDT [facility] Chloride 106 98 - 107 mmol/L 02/04/2013 10:10 AM CDT [facility] CO2 27 22 - 31 mmol/L 02/04/2013 10:10 AM CDT [facility] Calcium 9.5 8.5 - 10.1 mg/dL 02/04/2013 10:10 AM [facility] Anion Gap 8 5 - 15 mmol/L 02/04/2013 10:10 AM CDT [facility] BUN 16 7 - 21 mg/dL 02/04/2013 10:[facility] Creatinine 0.89 0.50 - 1.30 mg/dL 02/04/2013 10:10 [facility] eGFR by MDRD >60 >60 ml/min/1.7 2 02/04/2013 10:10 AM T [facility] eGFR by MDRD >60 >60 ml/min/1.7 2 02/04/2013 10:10 AM T [facility] Alkaline Phosphatase 92 38 - 126 U/L 02/04/2013 10:10 AM CDT [facility] ALT 43 12 - 78 U/L 02/04/2013 10:10 [facility] LABORATORY AST 19 5 - 40 U/L 02/04/2013 10:10 AM [facility] Protein Total 7.8 6.4 - 8.2 gm/dL 02/04/2013 10:10 AM CDT [facility] Albumin 4.4 3.4 - 5.0 gm/dL 02/04/2013 10:10 AM T [facility] Bilirubin Total 0.4 0.2 - 1.0 mg/dL 02/04/2013 10:10 AM T [facility] Blood specimen (specimen) BLOOD SPECIMEN / Unknown 02/04/2013 9:39 AM CDT 02/04/2013 9:45 AM CDT Leonardo Collier MD LAB - CHEMISTRY [facility] Organization Address City/State/ZIP Co de Phone Number [facility] [address] [place] [address] * CBC W AUTO DIFFERENTIAL (02/04/2013 9:39 AM CDT) [facility] WBC 7.2 4.4 - 10.7 x10^9/L 02/04/2013 9:55 AM CDT [facility] RBC 5.16 3.80 - 5.40 x10^12/L 02/04/2013 9:55 AM CDT [facility] Hemoglobin 15.5 12.0 - 17.6 g/dL 02/04/2013 9:55 AM CDT [facility] Hematocrit 44.7 35.2 - 51.7 % 02/04/2013 9:55 AM CDT [facility] MCV 86.6 80.7 - 98.3 fl 02/04/2013 9:55 AM CDT [facility] MCH 30.0 26.7 - 34.0 pg 02/04/2013 9:55 AM CDT [facility] MCHC 34.7 30.8 - 35.9 gm/dL 02/04/2013 9:55 AM CDT [facility] Platelet Count 309 153 - 416 x10^9/L 02/04/2013 9:55 AM CDT [facility] RDW-CV 13.5 12.1 - 14.9 % 02/04/2013 9:55 AM CDT [facility] Neutrophils % 67 44 - 73 % 02/04/2013 9:55 AM CDT [facility] Lymphocytes % 24 20 - 43 % 02/04/2013 9:55 AM CDT [facility] Monocytes % 8 5 - 13 % 02/04/2013 9:55 AM CDT [facility] Eosinophils % 1 0 - 6 % 02/04/2013 9:55 AM CDT [facility] Basophils % 1 0 - 2 % 02/04/2013 9:55 AM CDT [facility] Neutrophil Absolute 4.77 2.01 - 7.14 x10^9/L 02/04/2013 9:55 AM CDT [facility] Lymphocytes Absolute 1.70 1.07 - 3.94 x10^9/L 02/04/2013 9:55 AM CDT [facility] Monocytes Absolute 0.55 0.26 - 1.07 x10^9/L 02/04/2013 9:55 AM CDT [facility] Eosinophils Absolute 0.08 0 - 0.47 x10^9/L 02/04/2013 9:55 AM CDT [facility] Basophils Absolute 0.06 0 - 0.08 x10^9/L 02/04/2013 9:55 AM CDT [facility] Blood specimen (specimen) BLOOD SPECIMEN / Unknown 02/04/2013 9:39 AM CDT 02/04/2013 9:45 AM CDT Leonardo Collier MD LAB - HEMATOLOGY ORD ERABLES Performing Organization Address [facility] Co de Phone Number [facility] [address] [place] [address] * CULTURE URINE (02/04/2013 9:39 AM CDT) Culture <10,000 CFU/mL normal urogenital kadeem 02/06/2013 7:57 AM CDT [facility] Urine specimen (specimen) URINE SPECIMEN OBTAINED BY CLEAN CATCH PROCEDURE / Unknown 02/04/2013 9:39 AM CDT 02/04/2013 9:45 AM CDT Leonardo Collier MD LAB - MICROBIOLOGY O RDERABLES Performing Organization Address [facility] Co de Phone Number [facility] [address] [facility] [address] [place] * (ABNORMAL) URINALYSIS ROUTINE W/REFLEX TO CULTURE (02/04/2013 9:39 AM CDT) Color UA Yellow Straw, Yellow, Dark Yellow 02/04/2013 9:54 AM CDT [facility] Clarity UA Clear 02/04/2013 9:54 AM CDT [facility] Specific [place] UA 1.032(H) 1.005 - 1.030 02/04/2013 9:54 AM CDT [facility] pH UA 6.0 5.0 - 8.0 02/04/2013 9:54 AM CDT [facility] Protein UA 1+(A) Negative 02/04/2013 9:54 AM CDT [facility] Blood UA 3+(A) Negative 02/04/2013 9:54 AM CDT [facility] Leukocyte UA Negative Negative 02/04/2013 9:54 AM CDT [facility] Nitrite UA Negative Negative 02/04/2013 9:54 AM CDT [facility] Glucose UA Negative Negative 02/04/2013 9:54 AM CDT [facility] Ketone UA Negative Negative 02/04/2013 9:54 AM CDT [facility] Bilirubin UA Negative Negative 02/04/2013 9:54 AM CDT [facility] Urobilinogen UA 0.2 0.1 - 1.0 EU/dL 02/04/2013 9:54 AM CDT [facility] WBC UA Auto 0-2 0-2, 2-5 #/hpf 02/04/2013 9:54 AM CDT [facility] RBC UA Auto 5-10(A) 0-2, 2-5 #/hpf 02/04/2013 9:54 AM CDT [facility] Epithelial Cell UA Auto 0-2 0-2, 2-5 #/hpf 02/04/2013 9:54 AM CDT [facility] Bacteria UA Auto None seen None seen 02/04/2013 9:54 AM CDT [facility] Hyaline Casts UA Auto 2-5(A) 0 - 2 #/lpf 02/04/2013 9:54 AM CDT [facility] Reflex Status Culture not indicated 02/04/2013 9:54 AM CDT [facility] Urine specimen (specimen) URINE SPECIMEN OBTAINED BY CLEAN CATCH PROCEDURE / Unknown 02/04/2013 9:39 AM CDT 02/04/2013 9:45 AM CDT Narrative [facility] - 02/04/2013 9:54 AM CDT Results are potentially invalid due to less than 12 mL of specimen received. Leonardo Collier MD LAB - URINALYSIS ORD ERABLES [facility] [address] [place] [address] documented in this encounter Visit Diagnoses Diagnosis Flank pain Abdominal pain, unspecified site Nephrolithiasis Calculus of kidney documented in this encounter Administered Medications Inactive Administered Medications - up to 3 most recent administrations Medication Order MAR Action Action Date Dose Rate Site 0.9% NaCl infusion at 1,000 mL/hr, Intravenous, CONTINUOUS, Starting on Mon02/04/13 at 1015, Until Mon02/04/13 at 1334 $ New Bag/Syringe 02/04/2013 9:40 AM CDT 1000 mL/hr ketorolac (TORADOL) injection 30 mg 30 mg, Intravenous, ONCE, 1 dose, On Mon02/04/13 at 1000, . WASTE DISPOSAL INSTRUCTIONS: Black Bin Disposal required. $ Given 02/04/2013 9:40 AM CDT 30 mg morphine injection 4 mg 4 mg, Intravenous, ONCE, 1 dose, On Mon02/04/13 at 1130 $ Given 02/04/2013 11:10 AM CDT 4 mg ondansetron (disintegrating) (ZOFRAN ODT) tab ADS Med 1 dose, Starting on Mon02/04/13 at 0922, Until Mon02/04/13 at 0923, ASTRID WHITING: cabinet override ondansetron (disintegrating) (ZOFRAN ODT) tablet 4 mg 4 mg, Sublingual, ONCE, 1 dose, On Mon02/04/13 at 0945 $ Given 02/04/2013 9:23 AM CDT 4 mg ondansetron (ZOFRAN) injection 4 mg 4 mg, Intravenous, ONCE, 1 dose, On Mon02/04/13 at 1000 $ Given 02/04/2013 9:40 AM CDT 4 mg documented in this encounter Active and Recently Administered Medications Times are shown in CDT. Scheduled Medication Order 02/02/2013 02/03/2013 02/04/2013 ketorolac (TORADOL) injection 30 mg (COMPLETED) 30 mg, Intravenous, ONCE, 1 dose, On Mon02/04/13 at 1000, . WASTE DISPOSAL INSTRUCTIONS: Black Bin Disposal required. 0940 ($ Given - Prov ider: Misty Harrison, EMT-P) morphine injection 4 mg (COMPLETED) 4 mg, Intravenous, ONCE, 1 dose, On Mon02/04/13 at 1130 1110 ($ Given - Prov ider: Nidhi Gonzalez, RADIO REPAIRER-CLAIMS CONFIGURATION ANALYST) ondansetron (disintegrating) (ZOFRAN ODT) tablet 4 mg (COMPLETED) 4 mg, Sublingual, ONCE, 1 dose, On Mon02/04/13 at 0945 0923 ($ Given - Prov ider: Astrid Whiting, MABLE) ondansetron (ZOFRAN) injection 4 mg (COMPLETED) 4 mg, Intravenous, ONCE, 1 dose, On Mon02/04/13 at 1000 0940 ($ Given - Prov ider: Misty A Dahl, EMT-P) Continuous Medication Order 02/02/2013 02/03/2013 02/04/2013 0.9% NaCl infusion (CANCELED) at 1,000 mL/hr, Intravenous, CONTINUOUS, Starting on Mon02/04/13 at 1015, Until Mon02/04/13 at 1334 0940 ($ New Bag/Syri nge - Provider: Misty Harrison EMTTessaP) documented in this encounter Care Teams Ict Security Specialist Relationship Specialty Start Date End Date Roxanna Moreno MD [address] [place] [address] PCP - General Family Medicine 02/04/13 documented as of this encounter
--- OUTSIDE RECORDS SUMMARY | 2024-08-03 14:52 | XMS_ITS | Encounter Summary ---
Author Organization [facility] Address [address] [place] [address] Phone Care Team Providers Care Motor Builder Assembler Name Role Phone Roxanna Moreno MD Primary Care Provider + Dayanna Crump MD Unavailable [phone] Reason for Visit * Reason Comments Post-op Encounter Details Date Type Department Care Team (Late st Contact Info) Description 02/20/2024 8:45 AM CDT Office Visit [facility] Surgery 2 [facility] [address] [place] [id number] Farida Brunner NP [address] [address] Lipoma, unspecified site (Primary Dx) Social History Tobacco Use Types Packs/Day Years Used Date Smoking Tobacco: Never Smokeless Tobacco: Former Quit: 05/2011 Alcohol Use Standard Drinks/Week Comments Yes 0 (1 standard drink = 0.6 oz pur e alcohol) RARE 3-4 q year AUDIT-C Answer Date Recorded Q1: How often do you have a drink containing alc ohol? Never 05/11/2022 Average Number of Drinks Not on file 022 Frequency of Binge Drinking Not on file 04/15 Sex and Gender Information Value Date Recorded Sex Assigned at Not on file Legal Sex Male 1:57 AM FROZEN FOODS MANAGER Gender Identity Male 06/20/2021 2:35 PM FROZEN FOODS MANAGER Sexual Orientation Straight 06/20/2021 2: 35 PM FROZEN FOODS MANAGER documented as of this encounter Progress Notes * Farida Brunner NP - 02/20/2024 8:45 AM CDT Images from the original note were not included. Plastic & Reconstructive Surgery Progress Note Date of Surgery: 02/06/24 Surgery: Excision of lipoma of left shoulder S: No acute events since surgery He denies pain, fever, chills or drainage from surgical site. Did report having a ???where she?? sound to anterior aspect of incision that has resolved O: There were no vitals taken for this visit. Gen: NAD, A&O x3 Surgical incision remains intact, clean, dry, without erythema or exudate. I do not appreciate hematoma/seroma. There is no evidence of residual lesion. Surgical incision remained well approximated after sutures were removed. REVIEW OF LABORATORY AND RADIOGRAPHIC STUDIES: SKIN, LEFT ANTERIOR SHOULDER, EXCISION: LIPOMA A/P: 43 y.o. male is now 2 weeks status post excision of lipoma to his left shoulder.Overall the patient is healing well. I reviewed the pathology with the patient and they are pleased to hear of thefindings of lipoma as expected. The incision is healing well. There is no evidence of infection. Sutures were removed today. I discussed the stages of wound healing and explained the scar will take 6months to 1 year to fully mature. I recommended to start using Vaseline or Aquaphor, performing scar massage, and applying sun screen if outside. The patient verbalized understanding and agreement with this plan. All questions were answered and he was encouraged to contact the office with further questions or concerns prior to the next appointment. Follow up: 6 week postop Restriction: As tolerated Post Op Farida Brunner NP 02/12/24 9:41 AM This document was transcribed using voice recognition software without a human sharepoint manager. Itmay contain typographical, grammatical, and/or syntax errors. documented in this encounter Plan of Treatment Not on file documented as of this encounter Goals Goal Patient Goal Type Associated Problems Recent Progress Patient-Stated? Author CCM Chronic Pain Care Plan Chronic Care Management No change(07/21 7:32 AM FROZEN FOODS MANAGER) No Skornicka, Saran Rakel, MABLE Note: Problem: Chronic Pain Goals: 1. Minimize further functional decline 2. Maximize quality of life 3. Control pain Strategies: - Activity/exercise program recommendation - Conservative stepwise pain medicine strategy with multi-disciplinary approach - Recommend healthy lifestyle strategies and compensatory methods as needed Reduce the likelihood of falling Lifestyle No change(07/21 7:32 AM FROZEN FOODS MANAGER) No Kenyatta Kaufman, MABLE Note: Below are four things you can do to prevent falls: Begin an exercise program to improve your leg strength & balance Ask your doctor or pharmacist to review your medicines Get annual eye check-ups & update your eyeglasses Make your home safer by: Removing clutter & tripping hazards Putting railings on all stairs & adding grab bars in the bathroom Having good lighting, especially on stairs Contact your local community or [facility] for information on exercise, fall prevention programs, or options for improving home safety. documented as of this encounter Visit Diagnoses Diagnosis Lipoma, unspecified site- Primary documented in this encounter Care Teams Motor Builder Assembler Relationship Specialty Start Date End Date Roxanna Moreno MD PCP - General 10/21/16 Dayanna Crump MD Consulting Physician Pain Management 01/30/23 documented as of this encounter
--- OUTSIDE RECORDS SUMMARY | 2024-08-03 14:52 | XMS_ITS | Encounter Summary ---
Author Organization [facility] Address [address] [place] [id number] Care Team Providers Care Range Feeder Name Role Phone Roxanna Moreno MD Primary Care Provider + Reason for Referral * Procedure (Routine) - Closed Specialty Diagnoses / Procedures Referred By Contac t Referred To Contact Diagnoses Chronic low back pain without sciatica, unspecified back pain laterality Procedures TRIGGER POINT INJECTION Dayanna Crump MD Phone: tel: fax: [facility] [id number] [place] [address] Referral ID Status Reason Start Date Expiration Date Visits Re quested Visits Authorized [id number] Closed 05/11/2022 06/10/2023 1 1 * Procedure (Routine) - Closed Specialty Diagnoses / Procedures Referred By Contac t Referred To Contact Diagnoses Chronic low back pain without sciatica, unspecified back pain laterality Procedures TRIGGER POINT INJECTION Dayanna Crump MD Phone: tel: fax: [facility] [address] [place] [address] Referral ID Status Reason Start Date Expiration Date Visits Re quested Visits Authorized [id number] Closed 05/11/2022 06/10/2023 1 1 * Diagnostic Imaging (Routine) - Closed Specialty Diagnoses / Procedures Referred By Rayne navarro Referred To Contact Diagnoses Mid back pain Procedures Imaging Intercostal Nerve Block (72024) Dayanna Crump MD Phone: tel: fax: [facility] [address] [place] [address] Referral ID Status Reason Start Date Expiration Date Visits Re quested Visits Authorized [id number] Closed 05/02/2022 06/01/2023 1 1 Reason for Visit * Reason Comments Back Pain * Procedure (Routine) - Closed Specialty Diagnoses / Procedures Referred By Rayne navarro Referred To Contact Diagnoses Chronic low back pain without sciatica, unspecified back pain laterality Procedures TRIGGER POINT INJECTION Dayanna Crump MD Phone: tel: fax: [facility] [address] [place] [address] Referral ID Status Reason Start Date Expiration Date Visits Re quested Visits Authorized [id number] Closed 05/11/2022 06/10/2023 1 1 Encounter Details Date Type Department Care Team (Latest Contact Info) Description 05/11/2022 8:19 AM CDT - 05/11/2022 8:34 AM CDT Hospital Encounter [facility] [address] [place] [address] Dayanna Crump MD [address] [place] [address] Mid back pain (Primary Dx); Intercostal neuralgia; Chronic low back pain without sciatica, unspecified back pain laterality Discharge Disposition: Discharge to home or self care Social History Tobacco Use Types Packs/Day Years Used Date Smoking Tobacco: Never Smokeless Tobacco: Former Quit: 05/2011 Tobacco Cessation:Counseling Given: Not Answered Alcohol Use Standard Drinks/Week Comments Yes 0 [...] on file Legal Sex Male 1:57 AM FISHERIES OFFICER Gender Identity Male 06/20/2021 2:35 PM FISHERIES OFFICER Sexual Orientation Straight 06/20/2021 2: 35 PM FISHERIES OFFICER documented as of this encounter Last Filed Vital Signs Vital Sign Reading Time Taken Comments Blood Pressure 138/83 05/11/2022 9:42 AM CDT Pulse 67 05/11/2022 9:42 AM CDT Temperature 36.7 ??C (98.1 ??F) 05/11/2022 8:51 AM CD T Respiratory Rate 16 05/11/2022 9:42 AM CDT Oxygen Saturation 98% 05/11/2022 9:42 AM CDT Inhaled Oxygen Concentration - - Weight - - Height - - Body Mass Index - - documented in this encounter Discharge Instructions * Discharge Instructions* Almita Mitchell RN - 05/11/2022 9:33 AM CDT [facility] DISCHARGE INFORMATION PLAN / NEW ORDERS: 8 weeks [facility] - [phone]. Calls are accepted Monday-Monday, 7:30am-4pm, excluding observed holidays. We highly encourage the use of [facility] for non-urgent matters as well as prescription refill requests. Pain Management will not fill out workers compensation forms or disability forms. Please contact your primary care physician. Pain Management does not print or supply copies of medical records. Medical records may be requested thru [facility] medical records department [phone]. The Pain Management Center is committed to providing your medication refills in a timely manner. When submitting a refill request, please note the following guidelines: Federal guidelines recommend patients with chronic pain, for whom opioid medications are prescribed, be evaluated at least once every three months or more frequently, as deemed appropriate by the prescribing provider. Patients who are prescribed non-opioid medications should plan to be evaluated at least every 6 months or more frequently, as deemed appropriate by the prescribing provider. To allow timely scheduling of evaluations, please contact the office to schedule your appointment 4-6 weeks in advance. For all opioid/narcotic prescription refills and non-opioid/non-narcotic refills with no refills remaining, please contact the Pain Management Center 5-7 days prior to the date of need. Refills may be requested thru MyChart which is the preferred method for refill requests. Call [phone] and leave a message on the Message Line with the following information: Name, date of , and phone number Name(s) of the medication(s) needing refill Name and number for the pharmacy where the refill(s) should be sent Please note, prescription refill dates are calculated based on the quantity of medication provided,not the date on which the pharmacy filled the prescription. We strive to provide you with EXCELLENT service as our patient. You may receive a survey after your visit today. If you can not rate your experience as EXCELLENT, please let us know before you leave how we can improve and better meet your needs. Thank you for choosing [facility] POST-PROCEDURE PATIENT EDUCATION The following procedure was performed in clinic today: intracostal nerve block You have received two medications in your injection today. The first is a numbing medicine. This medicine may give you quick pain relief that may wear off before tomorrow. The second medicine is a steroid which may take 2-7 days experience the full benefit of your steroid injection. Although not everyone obtains pain relief from steroid injections, often the injectionscan provide you with improvement in pain and function that last several months or longer. If you get significant benefits, the injections can be safely repeated periodically to maintain the improvements. Injections are also commonly coupled with other treatments such as, and not limited to, physical therapy in an attempt to either maximize the benefits or prolong the effects. Steroid injections are generally well tolerated; however, some patients may experience side effects. Most resolve within an hour of the procedure but may re-occur within 24-48 hours. These side effects include: Dizziness or light headedness upon standing. Change positions slowly. Steroid Flushing of the face and chest that can last several days and be accompanied by a feelingof warmth or low grade increase in temperature. Mild bruising, bleeding, or swelling at the injection site(s) Mild weakness or numbness in the extremities Anxiety, trouble sleeping Increased blood sugars. Patients with diabetes should monitor glucose levels regularly and notify the provider managing their diabetes of any sustained increases. Limit activity today. No driving today. You may resume your normal activity, including driving, in the morning. Increased pain, soreness, and/or aching may occur at the injection site. A cold pack may be used in20 minute intervals (20 minutes on / 20 minutes off) during the first 24 hours. After 24 hours, if discomfort continues, heat may be applied over the injection site(s) in the same 20 minute intervals. For your safety, DO NOT lie on top of the heating pad or allow yourself to fall asleep during use. To avoid the risk of infection, DO NOT submerge the injection site. Hot tubs, swimming pools, and bath tubs should be avoided for the next 24 hours. You may shower for bathing. Serious complications are rare, but are possible. If you experience ANY of the following, please call 911 or go to the nearest Emergency Department. Emergency staff should be made aware of your procedure. After receiving care for your complication, please notify the Pain Management Center. Allergic Reaction Extensive bleeding Infection (may be indicated by a fever of 101o or greater, heat, redness, or drainage at the injection site) Headache when sitting or standing that resolves when lying down New loss of balance/difficulty walking New loss of bowel or bladder control Increasing muscle weakness or prolonged numbness in the extremities Please attempt to not have a Covid-19 vaccine 2 weeks prior to a steroid injection or 2 weeks aftera steroid injection. At this time there is limited information regarding the impact to steroid injections on the efficacy of the Covid vaccine. Physician guidance recommends delaying steroid injections when possible. documented in this encounter Medications at Time of Discharge atorvastatin (LIPITOR) 40 mg tablet Take 1 tablet (40 mg total) by mouth daily 07/28/2021 hydroCHLOROthiaz jamaica (MICROZIDE) 12.5 mg capsule Take 1 capsule (12.5 mg total) by mouth daily 07/23/2021 irbesartan (AVAPRO) 300 mg tabletIndication s:hypertension Take 1 tablet (300 mg total) by mouth every morning 3 01/18/2018 pregabalin (LYRICA) 50 mg capsule Take 1 capsule (50 mg total) by mouth 3 (three) times a day 90 capsule 1 08/21/2020 sertraline (ZOLOFT) 50 mg tabletIndication s:Anxiety with Depression Take 1 tablet (50 mg total) by mouth every morning 08/28/2019 TENS units (TENS 502) device TENS unit with 2-4 electrodes 1 Device 12/13/2018 Voltaren Arthritis Pain 1 % gel APPLY 2 GMS TOPICALLY QID 04/26/[address] (CYMBALTA) 60 mg capsule TAKE 1 CAPSULE(60 MG) BY MOUTH DAILY 30 capsule 2 02/15/2022 2 lidocaine (XYLOCAINE) 5 % ointment Apply topically 2 (two) times a day as needed for pain 35.44 g 5 08/21/2020 3 documented as of this encounter Discharge Disposition Disposition Code Departure Means Destination Discharge to home or self care documented in this encounter Progress Notes * Dayanna Crump MD - 05/11/2022 8:45 AM CDT Progress Note Patient Name: Aleksandar Olsen : 1980 Today's Date: 05/11/2022 PCP: Roxanna Moreno MD Referring: Roaxnna Moreno MD Interval History: Today 05/11/2022 SUBJECTIVE Chief complaint of No chief complaint on file. Patient is here today for right T7-T9 intercostal nerve block for right sided thoracic back pain and bilateral neck pain. There has been no change in the location or character of his pain. If anything, he feels that the intensity has increased since it has been a while since his last procedure. Previously, he had T7-9 intercostal nerve blocks which provided about 50-75% relief similar to prior injections and allowed him to be more active with less pain. During his last visit, he had trigger point injections with Dr. Hameed and reports benefit. His pain regimen includes Lyrica, duloxetine, sertraline, TENS unit as well as OTC topicals (voltaren, lidocaine) Patient's Medications New Prescriptions No medications on file Previous Medications ATORVASTATIN (LIPITOR) 40 MG TABLET Take 40 mg by mouth daily Authorizing Provider: Fernanda Pompa MD Notes: -- DULOXETINE DR (CYMBALTA) 60 MG CAPSULE TAKE 1 CAPSULE(60 MG) BY MOUTH DAILY Authorizing Provider: Madina Husain NP Notes: -- HYDROCHLOROTHIAZIDE (MICROZIDE) 12.5 MG CAPSULE Take 12.5 mg by mouth daily Authorizing Provider: Fernanda Pompa MD Notes: -- IRBESARTAN (AVAPRO) 300 MG TABLET Take 300 mg by mouth every morning Authorizing Provider: Fernanda Pompa MD Notes: -- LIDOCAINE (XYLOCAINE) 5 % OINTMENT Apply topically 2 (two) times a day as needed for pain Authorizing Provider: Dayanna Crump MD Notes: -- PREGABALIN (LYRICA) 50 MG CAPSULE Take 1 capsule (50 mg total) by mouth 3 (three) times a day Authorizing Provider: Dayanna Crump MD Notes: -- SERTRALINE (ZOLOFT) 50 MG TABLET Take 50 mg by mouth every morning Authorizing Provider: Fernanda Pompa MD Notes: -- TENS UNITS (TENS 502) DEVICE TENS unit with 2-4 electrodes Authorizing Provider: Dayanna Crump MD Notes: -- VOLTAREN ARTHRITIS PAIN 1 % GEL APPLY 2 GMS TOPICALLY QID Authorizing Provider: ProviderFernanda MD Notes: -- Modified Medications No medications on file Discontinued Medications No medications on file ROS Review of Systems Musculoskeletal: Positive for back pain. OBJECTIVE Vitals: Most Recent : There were no vitals taken for this visit. Physical Exam: Physical Exam Pulmonary: Effort: Pulmonary effort is normal. Neurological: Mental Status: He is alert and oriented to person, place, and time. Labs/Radiology/Diagnostic Review: No recent results to review ASSESSMENT Mr. Aleksandar Olsen is a 41 y.o. male who presents with Problem List Items Addressed This Visit Neuro Intercostal neuralgia Other Visit Diagnoses Mid back pain - Primary Relevant Orders Imaging Intercostal Nerve Block (86418) PLAN: 1. Intervention: Right T7, T8, and T9 intercostal block today - s/pTPI In neck and thoracic back will repeat in 8 weeks - Continue Medtronic SCS use for back and right chest pain. Pt uses high frequency setting intermittently. 2. Medications: a. Opioids: none indicated at this time. b. Adjuvants: continue lidocaine cream, voltaren gel, duloxetine 60 mg daily, TENS unit -Continue Lyrica 50 mg TID (higher doses make him drowsy). 3. Imaging: Previously had a CT cervical spine at [facility] and images were previously reviewed. Report scanned into media tab, dated 08/10/2018. 4. Referral: He has participated in PT. Continue HEP 5. Follow-up: for TPI 05/11/22 documented in this encounter Miscellaneous Notes * Op Note - Dayanna Crump MD - 05/11/2022 8:45 AM CDT Patient ID Patient Name: Aleksandar Olsen : 1980 DOS: 05/11/2022 PCP: Roxanna Moreno MD Surgeon SURGEON: Dayanna Crump MD PAINT STOCK CLERK SURGEON: none Procedures NAME OF PROCEDURE: Intercostal nerve block at Right T7, T8, and T9, under Fluoroscopy. PRE-PROCEDURE DIAGNOSES: Other Chronic Pain and Intercostal Neuralgia. POST-PROCEDURE DIAGNOSES: same INDICATION FOR PROCEDURE: right sided intercostal pain INFORMED CONSTENT: After reviewing the procedure with the patient, informed consent to proceed withthe injection was obtained. A procedural permit was also signed. DESCRIPTION OF PROCEDURE: The patient was placed in the prone position on the fluoroscopy table. Fluoroscopy was used to identify the right T7, T8, and T9 level. The lumbar area was prepped with chlorhexidine solution and draped with sterile towels. Sterile technique was used throughout. At the needle entry point for the injection at lumbar level above, the skin and subcutaneous tissues were infiltrated with 1% lidocaine. A 22-gauge 3-inch B - bevel spinal needle was introduced and positioned with fluoroscopic imaging. The needle was advanced to the posterior margin of the neural foramen. Needle positioning was verified with AP fluoroscopic images. Radiographic contrast (Omnipaque 300) wasinjected (volume 2 ml.) There was spread of contrast along the inferior aspect of the rib. 3ml of amixture of 0.25% bupivacine with depomedrol 40 mg was injected, resulting in dispersion of the previously injected contrast. The above procedure was repeated at right T7, T8, and T9 The procedure was well tolerated, and there were no apparent complications. Dr. Crump was present and participated in the entire procedure. DISPOSITION: Patient was discharged home instable condition. Operative Findings: None Estimated Blood Loss: None Intraoperative Fluids: None Specimens: None Blood/Blood Products Transfused: None No Resident involved on case Dayanna Crump MD 05/11/2022 9:50 AM documented in this encounter Plan of Treatment Scheduled Orders Name Type Priority Associated Diagnoses Orde r Schedule TRIGGER POINT INJECTION Procedures Routine Chronic low back pain without sciatica, unspecified back pain laterality 1 Occurrences starting 05/11/2022 until 05/11/2023 TRIGGER POINT INJECTION Procedures Routine Chronic low back pain without sciatica, unspecified back pain laterality Once for 1 Occurrences starting 05/11/2022 until 05/11/2022 documented as of this encounter Goals Goal Patient Goal Type Associated Problems Recent Progress Patient-Stated? Author CCM Chronic Pain Care Plan Chronic Care Management No change(07/21 7:32 AM FISHERIES OFFICER) No Saran Quiñones RN Note: Problem: Chronic Pain Goals: 1. Minimize further functional decline 2. Maximize quality of life 3. Control pain Strategies: - Activity/exercise program recommendation - Conservative stepwise pain medicine strategy with multi-disciplinary approach - Recommend healthy lifestyle strategies and compensatory methods as needed Reduce the likelihood of falling Lifestyle No change(07/21 7:32 AM FISHERIES OFFICER) Kenyatta Carlton, RN Note: Below are four things you can [...] on stairs Contact your local community or [facility] for information on exercise, fall prevention programs, or options for improving home safety. documented as of this encounter Results * Imaging Intercostal Nerve Block (72206) (05/11/2022 9:37 AM CDT) Narrative [facility] - 05/11/2022 10:16 AM CDT The images from this study are not interpreted by Radiology. ??Please refer to the physician's procedure / OR operative note. us Dayanna Crump MD IMG PAIN MGMT PROCEDU RES Final Result 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 Chronic low back pain without sciatica, unspecified back pain laterality Mid back pain documented in this encounter Administered Medications Inactive Administered Medications - up to 3 most recent administrations Medication Order MAR Action Action Date Dose Rate Site bupivacaine (MARCAINE) 0.25 % (2.5 mg/mL) preservative free injection As needed, Starting on Mon05/11/22 at 0936, Intra-Op Given 05/11/2022 9:36 AM CDT 8 mL iohexoL (OMNIPAQUE) 300 mg iodine/mL injection solution As needed, Starting on Mon05/11/22 at 0935, Intra-Op Given 05/11/2022 9:35 AM CDT 2 mL lidocaine (XYLOCAINE) 10 mg/mL (1 %) injection As needed, Starting on Mon05/11/22 at 0935, Intra-Op, Indications: Administration of Local AnesthesiaIndications:Administratio n of Local Anesthesia Given 05/11/2022 9:35 AM CDT 4 mL methylPREDNISolone acetate (DEPO-medrol) injection As needed, Starting on Mon05/11/22 at 0936, Intra-Op Given 05/11/2022 9:36 AM CDT 40 mg documented in this encounter Care Teams Range Feeder Relationship Specialty Start Date End Date Roxanna Moreno MD PCP - General 10/21/16 documented as of this encounter
--- OUTSIDE RECORDS SUMMARY | 2024-08-03 14:52 | XMS_ITS | Encounter Summary ---
Author Organization [facility] Address [address] [place] [address] Phone Care Team Providers Care Hazardous Materials Tanker Driver Name Role Phone Roxanna Moreno MD Primary Care Provider + Dayanna Crump MD Unavailable [phone] Reason for Referral * Diagnostic Imaging (Routine) - Closed Specialty Diagnoses / Procedures Referred By Rayne navarro Referred To Contact Diagnoses Mass of soft tissue of left upper extremity Procedures US Upper Extremity Left Limited Farida Brunner NP 2 [facility] [address] [address] Phone: tel: fax: [address] [address] Referral ID Status Reason Start Date Expiration Date Visits Re quested Visits Authorized [id number] Closed 11/27/2023 12/26/2024 1 1 Reason for Visit * Reason Comments Lipoma on neck * Consultation (Routine) - Authorized Specialty Diagnoses / Procedures Referred By Rayne navarro Referred To Contact Plastic Surgery Diagnoses Lipoma, unspecified site Juliana Hinojosa NP [address] [place] [address] Phone: tel: fax: Farida Brunner NP [address] [facility] [address] [place] [address] [place] [address] Phone: tel: fax: Referral ID Status Reason Start Date Expiration Date Visits Requested Visits Authorized [id number] Authorized Specialty Services Required 2023 10/06/2024 6 6 Encounter Details Date Type Department Care Team (Late st Contact Info) Description 11/27/2023 10:30 AM CDT Office Visit [facility] Surgery 2 [facility] [address] [place] [address] Farida Brunner NP [address] [place] [address] [address] [place] [address] Mass of soft tissue of left upper extremity (Primary Dx); Lipoma, unspecified site Social History Tobacco Use Types Packs/Day Years [...] on file Legal Sex Male 1:57 AM CASING INSPECTOR Gender Identity Male 06/20/2021 2:35 PM CASING INSPECTOR Sexual Orientation Straight 06/20/2021 2: 35 PM CASING INSPECTOR documented as of this encounter Progress Notes * Farida Brunner, SERA - 11/27/2023 10:30 AM CDT Images from the original note were not included. Patient Name: Aleksandar Olsen Medical Record Number (MRN): [id number] Date of (): 1980 Encounter Date: 11/27/2023 Source of History Per Patient Chief Complaint Lipoma of left shoulder HPI Aleksandar Olsen presents for evaluation of lipoma of left shoulder. He noticed this 8 yrs ago and lipoma has increased in size. This has become more noticeable and uncomfortable with raising arm. He has had a lipoma removed medial to this area of left shoulder. He states that this lipoma was wrapped around a nerve. Anticoagulation: no ASA: no DM: no Tobacco: no Current Functional Status This is a pleasant 43 yr old male with no functional deficits. Patient Active Problem List Diagnosis Other chronic pain Intercostal neuralgia Myofascial pain Back pain Neck pain Arthritis Cervical radiculopathy Effusion of joint of multiple sites Encounter for preventive health examination Inguinal pain Visual impairment Carpal tunnel syndrome of right wrist Carpal tunnel syndrome of left wrist Neuralgia Other myositis, other site Past Medical History: Diagnosis Date Anxiety Back pain mid back Hyperlipidemia Hypertension Medical marijuana use Neck pain Osteoid osteoma T9 - removed Pain management PONV (postoperative nausea and vomiting) Past Surgical History: Procedure Laterality Date ANTERIOR CRUCIATE LIGAMENT REPAIR Right ACL Reconstruction, ? hardware BACK SURGERY Back Surgery - T9 Tumor excision. 2006. (Added by TW Conv) KNEE ARTHROSCOPY W/ LATERAL RELEASE Right NERVE BLOCK Nerve Block - (Added by TW Conv), spine multi SHOULDER SURGERY Rt Shoulder Dislocation surgery SPINAL CORD STIMULATOR IMPLANT Spinal Surgery Neurostimulator Implants - 2010 (Added by TW Conv), battery pack right lower back Current Outpatient Medications on File Prior to Visit Medication Sig Dispense Refill atorvastatin (LIPITOR) 40 mg tablet Take 1 tablet (40 mg total) by mouth daily DULoxetine DR (CYMBALTA) 60 mg capsule TAKE 1 CAPSULE(60 MG) BY MOUTH DAILY 90 capsule 1 hydroCHLOROthiazide (MICROZIDE) 12.5 mg capsule Take 1 capsule (12.5 mg total) by mouth daily irbesartan (AVAPRO) 300 mg tablet Take 1 tablet (300 mg total) by mouth every morning 3 lidocaine (XYLOCAINE) 5 % ointment Apply topically 2 (two) times a day as needed for pain 35.44 g 5 naproxen (ALEVE) 220 mg tablet Take 3 tablets (660 mg total) by mouth every 12 (twelve) hours as needed for pain pregabalin (LYRICA) 50 mg capsule Take 1 capsule (50 mg total) by mouth 3 (three) times a day 90 capsule 1 sertraline (ZOLOFT) 50 mg tablet Take 1 tablet (50 mg total) by mouth every morning TENS units (TENS 502) device TENS unit with 2-4 electrodes 1 Device 0 testosterone cypionate (DEPO-TESTOTERONE) 200 mg/mL injection Inject 1 mL (200 mg total) into the muscle as instructed every 14 (fourteen) days Voltaren Arthritis Pain 1 % gel APPLY 2 GMS TOPICALLY QID Wegovy 2.4 mg/0.75 mL auto-injector Current Facility-Administered Medications on File Prior to Visit Medication Dose Route Frequency Provider Last Rate Last Admin perflutren lipid (DEFINITY) 1.5 mL in sodium chloride 0.9% 10 mL syringe 1-10 mL intravenous Once in imaging Scanning, Provider No Known Allergies Family History Problem Relation Age of Onset Skin cancer Mother Cancer -skin; Other Mother Kidney Problems; Cancer Mother Family history of malignant neoplasm - (Added by TW Conv) Kidney disease Mother Anesthesia problems Mother agressive, fear, thrashing Lung cancer Maternal Grandfather Cancer -lung; Cancer Maternal Grandfather Early Maternal Grandfather Cancer Other Family history of malignant neoplasm - Relation: Grandparent (Added by TW Conv) Hypertension Father Family history of hypertension - (Added by TW Conv) Heart disease Maternal Grandmother Social History Tobacco Use Smoking status: Never Smokeless tobacco: Former Quit date: 05/2011 Substance and Sexual Activity Drug use: Yes Frequency: 5.0 times per week Types: Medical marijuana Comment: LAST USED Sexual activity: Defer Alcohol Use: Not At Risk (05/11/2022) AUDIT-C Frequency of Alcohol Consumption: Never Average Number of Drinks: Not on file Frequency of Binge Drinking: Not on file Review of Systems: reviewed on health form on day of service and scanned in chart. Physical Exam: Focused skin exam: Left anterior shoulder soft tissue mass that is firm but pliable and free moving. I do not feel movement of soft tissue mass with flexion of surrounding muscles. Mass measured 4.8 x 2.8 cm Assessment/Plan Diagnosis Plan 1. Lipoma, unspecified site Ambulatory referral to Plastic Surgery Plan Soft tissue mass vs Lipoma of left shoulder. Will obtain ultrasound of mass to determine density and if muscle or surrounding structures are involved. If ultrasound is consistent with Lipoma, will plan for surgerical excision in the office under local. We discussed risks including but not limited to infection, bruising, bleeding less likely potentialinjury to surrounding structures. He has reported nerve involvement without injury with prior excision. We did discuss that this could again be present and nerve damage is a potential risk. All of his questions were answered and he was instructed to contact the office if he has additionalquestions. I spent 20 minutes on this patient encounter which included review of medical records. Over half the time was spent with the patient face to face discussing the treatment plan, counseling and coordinating care. This document was transcribed using voice recognition software without a human mold car pusher. Itmay contain typographical, grammatical, and/or syntax errors. documented in this encounter Plan of Treatment Not on file documented as of this encounter Goals Goal Patient Goal Type Associated Problems Recent Progress Patient-Stated? Author CCM Chronic Pain Care Plan Chronic Care Management No change(07/21 7:32 AM CASING INSPECTOR) No Saran Quiñones, RN Note: Problem: Chronic Pain Goals: 1. Minimize further functional decline 2. Maximize quality of life 3. Control pain Strategies: - Activity/exercise program recommendation - Conservative stepwise pain medicine strategy with multi-disciplinary approach - Recommend healthy lifestyle strategies and compensatory methods as needed Reduce the likelihood of falling Lifestyle No change(07/21 7:32 AM CASING INSPECTOR) No Kenyatta Kaufman, MABLE Note: Below are [...] on stairs Contact your local community or senior center for information on exercise, fall prevention programs, or options for improving home safety. documented as of this encounter Results * US Upper Extremity Left Limited (12/27/2023 12:44 PM CDT) Anatomical Region Laterality Modality Upper Extremities Left Ultrasound 12/29/2023 8:57 AM CDT Narrative 12/29/2023 8:59 AM CDT EXAM DESCRIPTION: ?? US UPPER EXTREMITY LEFT LIMITED REASON FOR STUDY: Palpable painless soft tissue mass about the left shoulder for 7 years. ?? TECHNIQUE: A Dynamic assessment was performed of the ??soft tissues about the left shoulder ??by the stamping machine operator, with selected grayscale and color Doppler images acquired and recorded in PACS. COMPARISON: ?? None FINDINGS: SKIN AND SUBCUTANEOUS TISSUES: ?? Within the subcutaneous tissues, there is a 3.8 x 0.8 x 2.3 cm structure, slightly hyperechoic to the adjacent subcutaneous fat, suggestive of but not definitive for a lipoma. ??No significant increased flow on color imaging. DEEP SOFT TISSUES/MUSCLES: ?? No masses. No fluid collections. No edema. OTHER: ?? No other significant finding. IMPRESSION: ??3.8 cm soft tissue lesion in the subcutaneous tissues of the area of palpable concern suggestive of but not definitive for lipoma. ??Correlate clinically. THIS IS AN ELECTRONICALLY VERIFIED FINAL REPORT 12/29/2023 8:59 AM - Electronically signed by ??Ashley Goddard M.D. TW: TW D: ??12/29/2023 8:59 AM T: ??12/29/2023 8:59 AM Report ID: [id number] Reading Location: ??[id number] Procedure Note Ashley Goddard MD - 12/29/2023 EXAM DESCRIPTION: US UPPER EXTREMITY LEFT LIMITED REASON FOR STUDY: Palpable painless soft tissue mass about the leftshoulder for 7 years. TECHNIQUE: A Dynamic assessment was performed of the soft tissues aboutthe left shoulder by the stamping machine operator, with selected grayscale and colorDoppler images acquired and recorded in PACS. COMPARISON: None FINDINGS: SKIN AND SUBCUTANEOUS TISSUES: Within the subcutaneous tissues, there nubia 3.8 x 0.8 x 2.3 cm structure, slightly hyperechoic to the adjacent subcutaneous fat, suggestive of but not definitive for a lipoma. No significant increased flow on color imaging. DEEP SOFT TISSUES/MUSCLES: No masses. No fluid collections. No edema. OTHER: No other significant finding. IMPRESSION: 3.8 cm soft tissue lesion in the subcutaneous tissues of the area of palpable concern suggestive of but not definitive for lipoma. Correlate clinically. THIS IS AN ELECTRONICALLY VERIFIED FINAL REPORT 12/29/2023 8:59 AM - Electronically signed by Ashley Goddard M.D. TW: TW Report ID: [id number] Reading Location: [id number] us Farida Brunner CUTTING PRESSMAN IMG US PROCEDURES Final Result documented in this encounter Visit Diagnoses Diagnosis Mass of soft tissue of left upper extremity- Primary Lipoma, unspecified site Mass of soft tissue of left upper extremity documented in this encounter Orders Outpatient Referral Count Last Ordered Date Fir st Ordered Date AMB REFERRAL TO PLASTIC SURGERY 1 4 documented in this encounter Care Teams Hazardous Materials Tanker Driver Relationship Specialty Start Date End Date Roxanna Moreno MD PCP - General 10/21/16 Dayanna Crump MD Consulting Physician Pain Management 01/30/23 documented as of this encounter
--- OUTSIDE RECORDS SUMMARY | 2024-08-03 14:52 | XMS_ITS | Referral Summary ---
Author Organization [facility] Address [address] [place] [address] Care Team Providers Care Manager Pharmaceutical Name Role Phone Roxanna Moreno MD Primary Care Provider + Dayanna Crump MD Unavailable Allergies No known active allergies Medications irbesartan (AVAPRO) 300 mg tabletIndicatio ns:hypertension Take 1 tablet (300 mg total) by mouth every morning 3 8 Active TENS units (TENS 502) device TENS unit with 2-4 electrodes 1 Device 9 Active sertraline (ZOLOFT) 50 mg tabletIndicatio ns:Anxiety with Depression Take 1 tablet (50 mg total) by mouth every morning 0 Active Voltaren Arthritis Pain 1 % gel APPLY 2 GMS TOPICALLY QID 0 Active pregabalin (LYRICA) 50 mg capsule Take 1 capsule (50 mg total) by mouth 3 (three) times a day 90 capsule 1 1 Active atorvastatin (LIPITOR) 40 mg tablet Take 1 tablet (40 mg total) by mouth daily 1 Active hydroCHLOROthia zide (MICROZIDE) 12.5 mg capsule Take 1 capsule (12.5 mg total) by mouth daily 1 Active lidocaine (XYLOCAINE) 5 % ointment Apply topically 2 (two) times a day as needed for pain 35.44 g 5 3 Active testosterone cypionate (DEPO-TESTOTERO NE) 200 mg/mL injection Inject 1 mL (200 mg total) into the muscle as instructed every 14 (fourteen) days 3 Active naproxen (ALEVE) 220 mg tablet Take 3 tablets (660 mg total) by mouth every 12 (twelve) hours as needed for pain Active Wegovy 2.4 mg/0.75 mL auto-injector [address] (CYMBALTA) 60 mg capsule TAKE 1 CAPSULE(60 MG) BY MOUTH DAILY 90 capsule 1 4 Active Hospital, Clinic, or Other Facility Administered Medication Ordered Dose Route Frequency Start Date End Date Status perflutren lipid (DEFINITY) 1.5 mL in sodium chloride 0.9% 10 mL syringe 1 - 10 mL IV Once in imaging 06/06/2019 Active Active Problems Problem Noted Date Diagnosed Date Neuralgia 02/01/2023 Other myositis, other site 02/01/2023 Carpal tunnel syndrome of left wrist 04/03/2020 Overview (04/03/2020): Added automatically from request for surgery [id number] Carpal tunnel syndrome of right wrist 04/02/2020 Overview (04/02/2020): Added automatically from request for surgery [id number] Other chronic pain 02/07/2018 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 Myofascial pain 02/07/2018 Neck pain 03/08/2017 Cervical radiculopathy 03/08/2017 Inguinal pain 12/16/2016 Back pain 10/14/2015 Arthritis 10/14/2015 Effusion of joint of multiple sites 10/14/2015 Visual impairment 10/14/2015 Encounter for preventive health examination 03/14 Immunizations Name Administration Dates Next Due Influenza, Quadrivalent, Spl it, Preservative Free, Intramuscular 05/28/2018 Influenza, Unspecified 05/14/2019 Social History Tobacco Use Types Packs/Day Years [...] on file Legal Sex Male 1:57 AM CENTRAL LAB TECHNICIAN Gender Identity Male 06/20/2021 2:35 PM CENTRAL LAB TECHNICIAN Sexual Orientation Straight 06/20/2021 2: 35 PM CENTRAL LAB TECHNICIAN Last Filed Vital Signs Vital Sign Reading Time Taken Comments Blood Pressure 158/99 07/21/2023 8:24 AM CENTRAL LAB TECHNICIAN Pulse 72 07/21/2023 8:24 AM CENTRAL LAB TECHNICIAN Temperature 36.4 ??C (97.6 ??F) 07/21/2023 7:32 AM CS T Respiratory Rate 16 07/21/2023 8:15 AM CENTRAL LAB TECHNICIAN Oxygen Saturation 98% 07/21/2023 8:24 AM CENTRAL LAB TECHNICIAN Inhaled Oxygen Concentration - - Weight 124.3 kg (274 lb) 11/22/2021 7:37 AM CDT Height 180.3 cm (5' 11 ) 11/22/2021 7:37 AM CDT Body Mass Index 38.22 11/22/2021 7:37 AM CDT Plan of Treatment Not on file Goals Goal Patient Goal Type Associated Problems Recent Progress Patient-Stated? Author CCM Chronic Pain Care Plan Chronic Care Management No change(07/21 7:32 AM CENTRAL LAB TECHNICIAN) No Saran Quiñones, RN Note: Problem: Chronic Pain Goals: 1. Minimize further functional decline 2. Maximize quality of life 3. Control pain Strategies: - Activity/exercise program recommendation - Conservative stepwise pain medicine strategy with multi-disciplinary approach - Recommend healthy lifestyle strategies and compensatory methods as needed Reduce the likelihood of falling Lifestyle No change(07/21 7:32 AM CENTRAL LAB TECHNICIAN) No Kenyatta Kaufman, MABLE Note: Below are [...] stairs Contact your local community or senior [place] for information on exercise, fall prevention programs, or options for improving home safety. Medical Devices Implanted Type Area Early Head Start Teacher Device Identifier Shelf Expiration Date Model / Serial / Lot Spinal Cord Stimulator- Implanted:11/2010 (Quantity not on file) Spinal Cord Stimulator Back [employer] Insurance [facility] CHOICE PLUS Member Subscriber Plan / Payer (Ef fective 2020-Present) Name:Juan Pro Relation to Subscriber:Self Name:JUAN PRO Payer ID:[id number] (NAIC) Type:[facility] HMO/PPO Address: [address] CHOICE PLUS [facility] [employer] Care Teams Manager Pharmaceutical Relationship Specialty Start Date End Date Roxanna Moreno MD PCP - General 10/21/16 Dayanna Crump MD Consulting Physician Pain Management 01/30/23
--- OUTSIDE RECORDS SUMMARY | 2024-08-03 14:52 | XMS_ITS | Encounter Summary ---
Author Organization [facility] Address [address] [place] [address] Phone Care Team Providers Care Broiler Manager Name Role Phone Roxanna Moreno MD Primary Care Provider + Dayanna Crump MD Unavailable [phone] Encounter Details Date Type Department Care Team (Late st Contact Info) Description 02/07/2024 Orders Only [facility] [address] [place] [address] Farida Brunner NP 2 [facility] [address] [address] Mass of soft tissue of left upper extremity Social History Tobacco Use Types Packs/Day Years [...] on file Legal Sex Male 1:57 AM RAMP BOSS Gender Identity Male 06/20/2021 2:35 PM RAMP BOSS Sexual Orientation Straight 06/20/2021 2: 35 PM RAMP BOSS documented as of this encounter Plan of Treatment Not on file documented as of this encounter Goals Goal Patient Goal Type Associated Problems Recent Progress Patient-Stated? Author CCM Chronic Pain Care Plan Chronic Care Management No change(07/21 7:32 AM RAMP BOSS) No Saran Quiñones, MABLE Note: Problem: Chronic Pain Goals: 1. Minimize further functional decline 2. Maximize quality of life 3. Control pain Strategies: - Activity/exercise program recommendation - Conservative stepwise pain medicine strategy with multi-disciplinary approach - Recommend healthy lifestyle strategies and compensatory methods as needed Reduce the likelihood of falling Lifestyle No change(07/21 7:32 AM RAMP BOSS) No Kenyatta Kaufman, MABLE Note: Below are [...] on stairs Contact your local community or [facility] for information on exercise, fall prevention programs, or options for improving home safety. documented as of this encounter Procedures Procedure Name Priority Date/Time Associated Diagnosis Comments SURGICAL PATHOLOGY Routine 02/06/2024 12 :00 AM CDT Mass of soft tissue of left upper extremity documented in this encounter Results * Surgical pathology (02/06/2024 12:00 AM CDT) Tissue (Skin, excision) 02/06/2024 02/07/2024 8:37 AM CDT [facility] - 02/09/2024 2:23 PM CDT EPIC results best viewed via link to PDF [facility] [address] [place] [address] Ave., ??[address], [place] [address] ? [email or web address] Note to Patients: ??This report may contain a detailed description of human tissue sent by a health care provider to the laboratory for pathologic evaluation. ??The content of this report is essential for diagnosis and may provide important critical findings. ??This information may be unfamiliar to patients to review without a medical professional present. ?? It is advised that the patient review this report in the presence of a health care provider who can answer questions and explain the details. FINAL REPORT Patient Information: PATIENT NAME: ??JUAN PRO ? SEX: ??M ? : ??1980 (Age: 43) ? Specimen Information: COLLECTED: ??02/06/2024 ? RECEIVED: ??02/07/2024 ? REPORTED: ??02/09/2024 ? Submitting Physician Information: Farida Brunner, [address], Medical Office Building [address], [address] [place] [id number], ? DERMATOPATHOLOGY REPORT RESULTS ?? DIAGNOSIS: SKIN, LEFT ANTERIOR SHOULDER, EXCISION: ? LIPOMA exr/lac By this signature, I attest that the above diagnosis is based upon my personal examination of the slides(and/or other material indicated in the diagnosis). Annamaria Echols M.D. ?? Report Electronically Reviewed and Signed Out By ??Annamaria Echols M.D. 02/09/2024 14:23:44 CLINICAL INFORMATION R/O AK, BCC, SCC, DN, SK ?? SPECIMEN DATA MICROSCOPIC DESCRIPTION: There is a well-circumscribed neoplasm composed of mature adipose tissue. (D17.9) GROSS DESCRIPTION: Received in a formalin-containing bottle is an irregularly shaped portion of martin-yellow, glistening adipose tissue measuring 2.5 by 2.5 by 1.5 cm. The specimen is sectioned into 6 pieces revealing pale martin, glistening cut surfaces. The specimen is entirely submitted in 3 cassettes. Due to the nature of the specimen, extended processing is required. sophia/dxv ICD-9 A; ZSD.987 ? Clerical Data [id number] The characteristics of special, immunohistochemical, and immunofluorescence stains and in-situ hybridization tests performed by the [facility] were deemed acceptable in ongoing director of quality measures and in compliance with regulations drawn from the Clinical Laboratory Improvement Act bd7250 (CLIA '88). Control reactions for all stains performed were deemed adequate and appropriate by a pathologist prior to evaluation of patient tissue. Some diagnoses were rendered with the assistance of laboratory-developed tests utilizing analyte-specific reagents; the performance characteristic of these tests were determined by [facility] and are not cleared or approved by the [place] Food an Drug administration. Laboratory developed test may only be performed in a facility that is certified by the [facility] as a high-complexity laboratory under CLIA '88. These tests are used for clinical purposes and are not investigational. Farida Brunner NP LAB PATHOLOGY ORD ERABLES Final Result [facility]Y CENTER [address] [place] [id number] documented in this encounter Visit Diagnoses Diagnosis Mass of soft tissue of left upper extremity documented in this encounter Care Teams Broiler Manager Relationship Specialty Start Date End Date Roxanna Moreno MD PCP - General 10/21/16 Dayanna Crump MD Consulting Physician Pain Management 01/30/23 documented as of this encounter
--- OUTSIDE RECORDS SUMMARY | 2024-08-03 14:52 | XMS_ITS | Encounter Summary ---
Author Organization [facility] Address [address] [place] [address] Care Team Providers Care Manager Of Tires Sales Name Role Phone Roxanna Moreno MD Primary Care Provider + Dayanna Crump MD Unavailable [phone] Reason for Visit * Reason Onset Date Comments Pre Arrival 07/19/2023 Encounter Details Date Type Department Care Team (Late st Contact Info) Description 07/19/2023 Telephone [place] [id number] [facility] 1st [place] [address] Helen Munson RN Pre Arrival Social History Tobacco Use Types Packs/Day Years [...] on file Legal Sex Male 1:57 AM FURNACE LOADER Gender Identity Male 06/20/2021 2:35 PM FURNACE LOADER Sexual Orientation Straight 06/20/2021 2: 35 PM FURNACE LOADER documented as of this encounter Miscellaneous Notes * Telephone Encounter - Helen Munson RN - 07/19/2023 10:57 AM FURNACE LOADER Pre-procedure call completed ACE LOADER documented in this encounter Plan of Treatment Not on file documented as of this encounter Goals Goal Patient Goal Type Associated Problems Recent Progress Patient-Stated? Author CCM Chronic Pain Care Plan Chronic Care Management No change(07/21 7:32 AM FURNACE LOADER) No Saran Quiñones, RN Note: Problem: Chronic Pain Goals: 1. Minimize further functional decline 2. Maximize quality of life 3. Control pain Strategies: - Activity/exercise program recommendation - Conservative stepwise pain medicine strategy with multi-disciplinary approach - Recommend healthy lifestyle strategies and compensatory methods as needed Reduce the likelihood of falling Lifestyle No change(07/21 7:32 AM FURNACE LOADER) No Kenyatta Kaufman, MABLE Note: Below are [...] on stairs Contact your local community or [facility] for information on exercise, fall prevention programs, or options for improving home safety. documented as of this encounter Visit Diagnoses Not on filedocumented in this encounter Care Teams Manager Of Tires Sales Relationship Specialty Start Date End Date Roxanna Moreno MD PCP - General 10/21/16 Dayanna Crump MD Consulting Physician Pain Management 01/30/23 documented as of this encounter
--- OUTSIDE RECORDS SUMMARY | 2024-08-03 14:52 | XMS_ITS | Encounter Summary ---
Author Organization [facility] Address [address] [place] [address] Care Team Providers Care Circuit Tester Name Role Phone Roxanna Moreno MD Primary Care Provider + Dayanna Crump MD Unavailable [phone] Reason for Visit * Reason Onset Date Comments Pre Arrival 01/30/2023 Encounter Details Date Type Department Care Team (Late st Contact Info) Description 01/30/2023 Telephone [place] [id number] [facility] 1st [place] [address] Tina Giraldo, MABLE Pre Arrival Social History Tobacco Use Types [...] on file Legal Sex Male 1:[address]TENANCE TECHNIC[address] Gender Identity Male 06/20/2021 2:[address] MAINTENANCE TECHNIC[address] Sexual Orientation Straight 06/20/2021 2: [address] MAINTENANCE TECHNIC[address] documented as of this encounter Miscellaneous Notes * Telephone Encounter - Tina Giraldo RN - 01/30/2023 11:32 AM CDT Pre procedure call complete. See documentation documented in this encounter Plan of Treatment Not on file documented as of this encounter Goals Goal Patient Goal Type Associated Problems Recent Progress Patient-Stated? Author CCM Chronic Pain Care Plan Chronic Care Management No change(07/21 7:[address] MAINTENANCE TECHNIC[address]) No Saran Quiñones, RN Note: Problem: Chronic Pain Goals: 1. Minimize further functional decline 2. Maximize quality of life 3. Control pain Strategies: - Activity/exercise program recommendation - Conservative stepwise pain medicine strategy with multi-disciplinary approach - Recommend healthy lifestyle strategies and compensatory methods as needed Reduce the likelihood of falling Lifestyle No change(07/21 7:[address] MAINTENANCE TECHNIC[address]) No Kenyatta Kaufman, MABLE Note: Below [...] on stairs Contact your local community or [facility] for information on exercise, fall prevention programs, or options for improving home safety. documented as of this encounter Visit Diagnoses Not on filedocumented in this encounter Care Teams Circuit Tester Relationship Specialty Start Date End Date Roxanna Moreno MD PCP - General 10/21/16 Dayanna Crump MD Consulting Physician Pain Management 01/30/23 documented as of this encounter
--- OUTSIDE RECORDS SUMMARY | 2024-08-03 14:52 | XMS_ITS | Encounter Summary ---
Author Organization [facility] Address [address] [place] [address] Care Team Providers Care Community Arts Worker Name Role Phone Roxanna Moreno MD Primary Care Provider + Encounter Details Date Type Department Care Team (Late st Contact Info) Description 05/11/2022 Orders Only [facility] [address] [facility] 1st [place] [phone] Dayanna Crump MD [address] [place] [address] Low back pain, unspecified back pain laterality, unspecified chronicity, unspecified whether sciatica present (Primary Dx) Social History Tobacco Use Types [...] on file Legal Sex Male 1:57 AM HUMAN RESOURCES COMPENSATION ANALYST Gender Identity Male 06/20/2021 2:35 PM HUMAN RESOURCES COMPENSATION ANALYST Sexual Orientation Straight 06/20/2021 2: 35 PM HUMAN RESOURCES COMPENSATION ANALYST documented as of this encounter Plan of Treatment Not on file documented as of this encounter Goals Goal Patient Goal Type Associated Problems Recent Progress Patient-Stated? Author CCM Chronic Pain Care Plan Chronic Care Management No change(07/21 7:32 AM HUMAN RESOURCES COMPENSATION ANALYST) No Saran Quiñones, RN Note: Problem: Chronic Pain Goals: 1. Minimize further functional decline 2. Maximize quality of life 3. Control pain Strategies: - Activity/exercise program recommendation - Conservative stepwise pain medicine strategy with multi-disciplinary approach - Recommend healthy lifestyle strategies and compensatory methods as needed Reduce the likelihood of falling Lifestyle No change(07/21 7:32 AM HUMAN RESOURCES COMPENSATION ANALYST) No Kenyatta Kaufman, MABLE Note: Below are [...] on stairs Contact your local community or [facility] for information on exercise, fall prevention programs, or options for improving home safety. documented as of this encounter Visit Diagnoses Diagnosis Low back pain, unspecified back pain laterality, unspecified chronicity, unspecified whether sciatica present- Primary documented in this encounter Care Teams Community Arts Worker Relationship Specialty Start Date End Date Roxanna Moreno MD PCP - General 10/21/16 documented as of this encounter
--- OUTSIDE RECORDS SUMMARY | 2024-08-03 14:52 | XMS_ITS | Encounter Summary ---
Author Organization [facility] Healthcare Address [address] [place] [address] Care Team Providers Care Laborer Gold Leaf Name Role Phone Roxanna Moreno MD Primary Care Provider + Reason for Referral * Diagnostic Imaging (Routine) - Closed Specialty Diagnoses / Procedures Referred By Rayne navarro Referred To Contact Diagnoses Mid back pain Procedures Imaging Intercostal Nerve Block ([id number]) Dayanna Crump MD Phone: tel: fax: [place] [id number] [place] [address] Referral ID Status Reason Start Date Expiration Date Visits Re quested Visits Authorized [id number] Closed 05/02/2022 06/01/2023 1 1 Reason for Visit * Diagnostic Imaging (Routine) - Closed Specialty Diagnoses / Procedures Referred By Contac t Referred To Contact Diagnoses Mid back pain Procedures Imaging Intercostal Nerve Block ([id number]) Dayanna Crump MD Phone: tel: fax: [place] [address] [place] [address] Referral ID Status Reason Start Date Expiration Date Visits Re quested Visits Authorized [id number] Closed 05/02/2022 06/01/2023 1 1 Encounter Details Date Type Department Care Team (Latest Contact Info) Description 05/11/2022 8:35 AM CDT - 05/11/2022 11:59 PM CDT Hospital Encounter [facility] at [facility] [address] [place] [address] Mid back pain Discharge Disposition: Discharge to home or self [...] on file Legal Sex Male 1:57 AM MENTAL HEALTH PROGRAM SPECIALIST Gender Identity Male 06/20/2021 2:35 PM MENTAL HEALTH PROGRAM SPECIALIST Sexual Orientation Straight 06/20/2021 2: 35 PM MENTAL HEALTH PROGRAM SPECIALIST documented as of this encounter Medications at Time of Discharge [...] or self care documented in this encounter Plan of Treatment Not on file documented as of this encounter Goals Goal Patient Goal Type Associated Problems Recent Progress Patient-Stated? Author CCM Chronic Pain Care Plan Chronic Care Management No change(07/21 7:32 AM MENTAL HEALTH PROGRAM SPECIALIST) No Saran Quiñones, RN Note: Problem: Chronic Pain Goals: 1. Minimize further functional decline 2. Maximize quality of life 3. Control pain Strategies: - Activity/exercise program recommendation - Conservative stepwise pain medicine strategy with multi-disciplinary approach - Recommend healthy lifestyle strategies and compensatory methods as needed Reduce the likelihood of falling Lifestyle No change(07/21 7:32 AM MENTAL HEALTH PROGRAM SPECIALIST) No Kenyatta Kaufman, MABLE Note: Below are [...] on stairs Contact your local community or [facility] for information on exercise, fall prevention programs, or options for improving home safety. documented as of this encounter Procedures Procedure Name Priority Date/Time Associated Diagnosis Comments PAIN MGMT IMAGING INTERCOSTAL NERVE BLOCK Schedule Routine, Read Routine (OP Routine) 05/11/2022 9:37 AM CDT Mid back pain documented in this encounter Results * Imaging Intercostal Nerve Block ([id number]) (05/11/2022 9:37 AM CDT) Narrative [facility] - 05/11/2022 10:16 AM CDT The images from this study are not interpreted by Radiology. ??Please refer to the physician's procedure / OR operative note. us Dayanna Crump MD IMG PAIN MGMT PROCEDU RES Final Result RAD_PACS_[facility] documented in this encounter Visit Diagnoses Diagnosis Mid back pain documented in this encounter Care Teams Laborer Gold Leaf Relationship Specialty Start Date End Date Roxanna Moreno MD PCP - General 10/21/16 documented as of this encounter
--- OUTSIDE RECORDS SUMMARY | 2024-08-03 14:52 | XMS_ITS | Encounter Summary ---
Author Organization [facility] Address [address] [place] [address] Phone Care Team Providers Care Shrimper Name Role Phone Roxanan Moreno MD Primary Care Provider + Dayanna Crump MD Unavailable [phone] Reason for Visit * Reason Comments Procedure * Procedure (Routine) - Closed Specialty Diagnoses / Procedures Referred By Rayne navarro Referred To Contact Diagnoses Mass of soft tissue of left upper extremity Procedures Excision Soft Tissue Mass/Tumor Farida Brunner NP [address] [place] [address] [place] [address] Phone: tel: fax: [facility] (All Locations) Referral ID Status Reason Start Date Expiration Date Visits Re quested Visits Authorized [id number] Closed 12/27/2023 01/25/2025 1 1 Encounter Details Date Type Department Care Team (Late st Contact Info) Description 02/06/2024 9:15 AM CDT Procedure visit [facility] Physicians [facility] Surgery [address] [place] [id number] Farida Brunner NP [address] [place] [address] [place] [address] Lipoma, unspecified site (Primary Dx); Mass of soft tissue of left upper [...] on file Legal Sex Male 1:57 AM FOREX TRADER Gender Identity Male 06/20/2021 2:35 PM FOREX TRADER Sexual Orientation Straight 06/20/2021 2: 35 PM FOREX TRADER documented as of this encounter Patient Instructions * Patient Instructions* Zaina Berry RN - 02/06/2024 9:15 AM CDT Please keep your shoulder sutures dry for 48 hours. You may shower after 48 hours and can gently use shampoo. After showering, you can apply Bacitracin if given or Vaseline to sutures. If you were told that you will be prescribed an antibiotic, please pickling machine operator and use as directed. To avoid any pain or swelling, it is better if you keep your head at an upright position, like recliner or raising the head of the bed for the next 24- 72 hours. Pain management can include ice pack, alternating Tylenol ES with Ibuprofen every 4-6 hours as needed. No heavy lifting, bending your head down, exercising, household and/or outdoor chores until you have returned to clinic and are cleared to resume. Monitor for fever, redness, uncontrollable pain or drainage from incision. Call the office between 8-4:30 p.m. if any questions or concerns at [phone], or message us through [employer], or go to the nearest ER if after hours. documented in this encounter Progress Notes * Farida Brunner NP - 02/06/2024 9:15 AM CDT I met Juan Olsen on November 27, 2023 for evaluation of lipoma of left shoulder. He returns today for excision. See procedure note. documented in this encounter Procedure Notes * Farida Brunner NP - 02/06/2024 9:15 AM CDT Procedures PROCEDURE: Excision with Intermediate Closure of Lipoma PREOPERATIVE DIAGNOSIS: lipoma POSTOPERATIVE DIAGNOSIS: Same LOCATION: left shoulder SIZE: 4.5 x 3 cm EXCISION SIZE (including size of defect and margins): 4 x 0.3 cm ESTIMATED BLOOD LOSS: less than 5 ml ANESTHESIA: 1% lidocaine with epinephrine, 1:100,000x 15 ml CLOSURE METHOD: Epidermal - 5-0 Monocryl Deep dermal: 5-0 Monocryl DRESSING: Vaseline, bandage FINAL SUTURE LINE: 4 cm DESCRIPTION OF PROCEDURE: Informed consent was obtained, including discussion of risks including bleeding, scarring, infection, and recurrence/persistence. [place] Protocol Time-Out performed. The location above was identified and confirmed with patient. The area was prepped with alcohol and and Betadine and local anesthesia was infiltrated. Thereafter, the skin was prepped and draped with sterile towels. An ellipse shape excision was carried out through the the dermis using a 15 blade scalpel. The lipoma was undermined with curved scissors from surround structure and removed with no visible residual lipoma. Deep dermal and epidermis was approximated with closure method noted above. There were no complications. The wound was dressed. Wound care instructions were provided in verbal andwritten form including a 24 hour contact number in case of emergency. The patient will have suture removed in 14 days. documented in this encounter Plan of Treatment Not on file documented as of this encounter Goals Goal Patient Goal Type Associated Problems Recent Progress Patient-Stated? Author CCM Chronic Pain Care Plan Chronic Care Management No change(07/21 7:32 AM FOREX TRADER) No Saran Quiñones RN Note: Problem: Chronic Pain Goals: 1. Minimize further functional decline 2. Maximize quality of life 3. Control pain Strategies: - Activity/exercise program recommendation - Conservative stepwise pain medicine strategy with multi-disciplinary approach - Recommend healthy lifestyle strategies and compensatory methods as needed Reduce the likelihood of falling Lifestyle No change(07/21 7:32 AM FOREX TRADER) Kenyatta Carlton RN Note: Below are four things you [...] on stairs Contact your local community or [facility] for information on exercise, fall prevention programs, or options for improving home safety. documented as of this encounter Results * Surgical pathology (02/06/2024 12:00 AM CDT) Tissue (Skin, excision) 02/06/2024 02/07/2024 8:37 AM CDT [facility] - 02/09/2024 2:23 PM CDT EPIC results best viewed via link to PDF [facility] [address] [place], [place] [address]., ??[address] [place] [address] ? [email or web address] Note to Patients: ??This report may [...] details. FINAL REPORT Patient Information: PATIENT NAME: ??MORTEZA, JUAN ? SEX: ??M ? : ??1980 (Age: 43) ? Specimen Information: COLLECTED: ??02/06/2024 ? RECEIVED: ??02/07/2024 ? REPORTED: ??02/09/2024 ? Submitting Physician Information: Farida Brunner, ANP [address] [place] [address], Medical Office [address], [address] [place], [place] ??[address], ? DERMATOPATHOLOGY REPORT RESULTS ?? DIAGNOSIS: SKIN, [...] sophia/dxv ICD-9 A; ZSD.987 ? Clerical Data [id number] The characteristics of special, immunohistochemical, and immunofluorescence stains and in-situ hybridization tests performed by the [facility] were deemed acceptable in ongoing advanced quality engineer measures and in compliance with regulations drawn from the Clinical Laboratory Improvement Act qy4741 (CLIA '88). Control reactions for all stains performed were deemed adequate and appropriate by a pathologist prior to evaluation of patient tissue. Some diagnoses were rendered with the assistance of laboratory-developed tests utilizing analyte-specific reagents; the performance characteristic of these tests were determined by [facility] and are not cleared or approved by the [place] Food an Drug administration. Laboratory developed test may only be performed in a facility that is certified by the [facility] as a high-complexity laboratory under CLIA '88. These tests are used for clinical purposes and are not investigational. Farida Brunner NP LAB PATHOLOGY ORD ERABLES Final Result [facility] [address] [place] [address] documented in this encounter Visit Diagnoses Diagnosis Lipoma, unspecified site- Primary Mass of soft tissue of left upper extremity Mass of soft tissue of left upper extremity documented in this encounter Administered Medications Inactive Administered Medications - up to 3 most recent administrations Medication Order MAR Action Action Date Dose Rate Site lidocaine-EPINEPHrine (XYLOCAINE with EPI) 2 %-1:100,000 injection 15 mL 15 mL, other, Once, On Mon02/06/24 at 1000, For 1 dose, Indications: Administration of Local AnesthesiaIndications:Administratio n of Local Anesthesia Given 02/06/2024 9:21 AM CDT 15 mL documented in this encounter Orders Medications Ordered That Eyad ht Not Have Been Administered Count Last Ordered Date First Ordered Date lidocaine-EPINEPHrine (XYLOC FELIX with EPI) 2 %-1:100,000 injection 15 mL 1 02/06/2024 Procedures Count Last Ordered Date First Orde red Date EXCISION SOFT TISSUE MASS/TUMOR 1 documented in this encounter Care Teams Shrimper Relationship Specialty Start Date End Date Roxanna Moreno MD PCP - General 10/21/16 Dayanna Crump MD Consulting Physician Pain Management 01/30/23 documented as of this encounter
--- OUTSIDE RECORDS SUMMARY | 2024-08-03 14:52 | XMS_ITS | Clinical Summary ---
Author Organization 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 hardware BACK SURGERY Back Surgery - T9 Tumor excision. 2006. (Added by TW Conv) SPINAL CORD STIMULATOR IMPLANT Spinal Surgery Neurostimulator Implants - 2010 (Added by TW Conv), battery pack right lower back NERVE BLOCK Nerve Block - (Added by TW Conv), spine multi SHOULDER SURGERY Rt Shoulder Dislocation surgery KNEE ARTHROSCOPY W/ LATERAL RELEASE Right Medical History Medical History Date Comments Hypertension Anxiety Hyperlipidemia Neck pain Back pain mid back PONV (postoperative nausea and vomiting) Osteoid osteoma T9 - removed Medical marijuana use Pain management Family History Medical History Relation Name Comments Hypertension Father Family history of hypertension - (Added by TW Conv) Cancer Maternal Grandfather Early Maternal Grandfather Lung cancer Maternal Grandfather Cancer -lung; Heart disease Maternal Grandmother Anesthesia problems Mother agressiv e, fear, thrashing Cancer Mother Family history of malignant neoplasm - (Added by TW Conv) Kidney disease Mother Other Mother Kidney Problems ; Skin cancer Mother Cancer -skin; Cancer Other Family history of malignant neoplasm - Relation: Grandparent (Added by TW Conv) Relation Name Status Comments Father Maternal Grandfather Maternal Grandmother Mother Other Social History Tobacco Use Types Packs/Day Years [...] on file Legal Sex Male 1:57 AM PERSONAL VEHICLE ADVISOR Gender Identity Male 06/20/2021 2:35 PM PERSONAL VEHICLE ADVISOR Sexual Orientation Straight 06/20/2021 2: 35 PM PERSONAL VEHICLE ADVISOR Obstetrics History Last Filed Vital Signs Vital Sign Reading Time Taken Comments Blood Pressure 158/99 07/21/2023 8:24 AM PERSONAL VEHICLE ADVISOR Pulse 72 07/21/2023 8:24 AM PERSONAL VEHICLE ADVISOR Temperature 36.4 ??C (97.6 ??F) 07/21/2023 7:32 AM CS T Respiratory Rate 16 07/21/2023 8:15 AM PERSONAL VEHICLE ADVISOR Oxygen Saturation 98% 07/21/2023 8:24 AM PERSONAL VEHICLE ADVISOR Inhaled Oxygen Concentration - - Weight 124.3 kg (274 lb) 11/22/2021 7:37 AM CDT Height 180.3 cm (5' 11 ) 11/22/2021 7:37 AM CDT Body Mass Index 38.22 11/22/2021 7:37 AM CDT Plan of Treatment Health Maintenance Due Date Last Done Comments Colon Cancer Screening-Colonoscopy 1980 Depression Screening 1980 Hepatitis C Screening 1980 Regular Well Visit/Exam 18-64 1996 DTaP/Tdap/Td Vaccine (1 - Tdap) 02/25/2003 02/24/2003 Covid-19 Vaccine ( season) 2024 06/18/2021, 10/20/2020, 09/16/2020 Influenza Vaccine (#1) 2024 3, 05/27/2021, 05/14/2020, Additional history exists HPV Vaccines Aged Out No longer eligi ble based on patient's age to complete this topic Pneumococcal vaccine <65 Aged Out No longer eligible based on patient's age to complete this topic Goals Goal Patient Goal Type Associated Problems Recent Progress Patient-Stated? Author CCM Chronic Pain Care Plan Chronic Care Management No change(07/21 7:32 AM PERSONAL VEHICLE ADVISOR) No Saran Quiñones, RN Note: Problem: Chronic Pain Goals: 1. Minimize further functional decline 2. Maximize quality of life 3. Control pain Strategies: - Activity/exercise program recommendation - Conservative stepwise pain medicine strategy with multi-disciplinary approach - Recommend healthy lifestyle strategies and compensatory methods as needed Reduce the likelihood of falling Lifestyle No change(07/21 7:32 AM PERSONAL VEHICLE ADVISOR) No Kenyatta Kaufman, MABLE Note: Below are [...] home safety. Medical Devices Implanted Type Area Office Associate Device Identifier Shelf Expiration Date Model / Serial / Lot Spinal Cord Stimulator- Implanted:11/2010 (Quantity not on file) Spinal Cord Stimulator Back [employer] Care Teams Audio Installer Relationship Specialty Start Date End Date Roxanna Moreno MD PCP - General 10/21/16 Dayanna Crump MD Consulting Physician Pain Management 01/30/23
--- OUTSIDE RECORDS SUMMARY | 2024-08-03 14:52 | XMS_ITS | Encounter Summary ---
Author Organization [facility] Healthcare Address [address] [place] [address] Care Team Providers Care Station Captain Name Role Phone Roxanna Moreno MD Primary Care Provider + Reason for Visit * Reason Onset Date Comments Pre Arrival 05/09/2022 Encounter Details Date Type Department Care Team (Late st Contact Info) Description 05/09/2022 Telephone [place] [id number] [facility] [address] [place] [address] Sondra Cabrera RN Pre Arrival Social History Tobacco Use Types Packs/Day Years Used Date Smoking Tobacco: Never Smokeless Tobacco: Former Quit: 05/2011 Alcohol Use Standard Drinks/Week Comments Yes 0 (1 standard drink = 0.6 oz pur e alcohol) RARE 3-4 q year AUDIT-C Answer Date Recorded Q1: How often do you have a drink containing alc ohol? Never 01/31/2022 Average Number of Drinks Not on file 022 Frequency of Binge Drinking Not on file 01/13 Sex and Gender Information Value Date Recorded Sex Assigned at Not on file Legal Sex Male 1:57 AM CRATE ICER Gender Identity Male 06/20/2021 2:35 PM CRATE ICER Sexual Orientation Straight 06/20/2021 2: 35 PM CRATE ICER documented as of this encounter Miscellaneous Notes * Telephone Encounter - Sondra Cabrera RN - 05/09/2022 9:13 AM CDT Left precall info on VM. * Pre-Procedure Instructions - Sondra Cabrera RN - 05/09/2022 9:12 AM CDT Voicemail message left with the following information: Procedure Date, Time, Location Arrival 15 minutes prior to appointment Discharge transportation is needed Oral intake: [x] Able to eat, drink, and take medications as normal. [] No solid food for 6 hours; No liquids for 3 hours; Take medications with sips of water. Blood thinner: [x] Notify the office immediately if taking a new blood thinner [] Lab work [] Lab work is required prior to the procedure. Please arrive 1 hour early to have the following test: [] CBC [] PT/INR Notify the office immediately if: In the last 10 days have you had any respiratory symptoms including cough, shortness of breath/trouble breathing, fever, sudden loss of taste or smell, sore throat, or body aches? Any antibiotics in the last 7 days? Have received a Covid-19 vaccine in the last 2 weeks or plan to receive a Covid- 19 vaccine in the next 2 weeks? Are currently being tested for Covid-19? Have tested positive for Covid-19 within the last 14 days? Have had close contact with anyone confirmed or suspected Covid-19 in the past 2 weeks? documented in this encounter Plan of Treatment Not on file documented as of this encounter Goals Goal Patient Goal Type Associated Problems Recent Progress Patient-Stated? Author CCM Chronic Pain Care Plan Chronic Care Management No change(07/21 7:32 AM CRATE ICER) No Saran Quiñones, MABLE Note: Problem: Chronic Pain Goals: 1. Minimize further functional decline 2. Maximize quality of life 3. Control pain Strategies: - Activity/exercise program recommendation - Conservative stepwise pain medicine strategy with multi-disciplinary approach - Recommend healthy lifestyle strategies and compensatory methods as needed Reduce the likelihood of falling Lifestyle No change(07/21 7:32 AM CRATE ICER) No Kenyatta Kaufman, RN Note: Below are four things you [...] on stairs Contact your local community or [facility] for information on exercise, fall prevention programs, or options for improving home safety. documented as of this encounter Visit Diagnoses Not on filedocumented in this encounter Care Teams Station Captain Relationship Specialty Start Date End Date Roxanna Moreno MD PCP - General 10/21/16 documented as of this encounter
--- OUTSIDE RECORDS SUMMARY | 2024-08-03 14:52 | XMS_ITS | Encounter Summary ---
Author Organization [facility] Healthcare Address [address] [place] [address] Care Team Providers Care Machine Bander And Cellophaner Helper Name Role Phone Roxanna Moreno MD Primary Care Provider + Dayanna Crump MD Unavailable [phone] Reason for Referral * Diagnostic Imaging (Routine) - Closed Specialty Diagnoses / Procedures Referred By Contmarsha t Referred To Contact Diagnoses Other myositis, other site Procedures Imaging Trigger Point INJ 3+ Muscle Groups (96935) Dayanna Crump MD Phone: tel: fax: [id number] [place] [address] Referral ID Status Reason Start Date Expiration Date Visits Re quested Visits Authorized [id number] Closed 02/01/2023 03/02/2024 1 1 * Diagnostic Imaging (Routine) - Closed Specialty Diagnoses / Procedures Referred By Contmarsha t Referred To Contact Diagnoses Neuralgia Procedures Imaging Intercostal Nerve Block (05749) Madina Husain NP Phone: tel: fax: [address] [address] Referral ID Status Reason Start Date Expiration Date Visits Re quested Visits Authorized [id number] Closed 01/16/2023 02/15/2024 1 1 Reason for Visit * Reason Comments Injections * Diagnostic Imaging (Routine) - Closed Specialty Diagnoses / Procedures Referred By Rayne navarro Referred To Contact Diagnoses Neuralgia Procedures Imaging Intercostal Nerve Block (54152) Madina Husain NP Phone: tel: fax: [address] [address] Referral ID Status Reason Start Date Expiration Date Visits Re quested Visits Authorized [id number] Closed 01/16/2023 02/15/2024 1 1 Encounter Details Date Type Department Care Team (Latest Contact Info) Description 02/01/2023 11:34 AM CDT - 02/01/2023 11:59 PM CDT Hospital Encounter [facility] at [facility] [address] [facility] 1st [place] [id number] Dayanna Crump MD [address] [place] [address] Neuralgia (Primary Dx); Other myositis, other site Discharge Disposition: Discharge to home or self [...] on file Legal Sex Male 1:57 AM SOCIAL SERVICES ANALYST Gender Identity Male 06/20/2021 2:35 PM SOCIAL SERVICES ANALYST Sexual Orientation Straight 06/20/2021 2: 35 PM SOCIAL SERVICES ANALYST documented as of this encounter Last Filed Vital Signs Vital Sign Reading Time Taken Comments Blood Pressure 133/92 02/01/2023 12:41 PM CDT Pulse 66 02/01/2023 12:41 PM CDT Temperature 36.6 ??C (97.9 ??F) 02/01/2023 11:40 AM C DT Respiratory Rate 16 02/01/2023 12:41 PM CDT Oxygen Saturation 95% 02/01/2023 12:41 PM CDT Inhaled Oxygen Concentration - - Weight - - Height - - Body Mass Index - - documented in this encounter Discharge Instructions * Discharge Instructions* Sharonda Munson RN - 02/01/2023 11:58 AM CDT PA[facility]EMENT [facility] POST-PROCEDURE PATIENT EDUCATION The following procedure was performed in clinic today: Right T7, T8, and T9 Intercostal Nerve Block You have received two medications in your [...] guidance recommends delaying steroid injections when possible. PAIN MANAGEMENT [facility] DISCHARGE INFORMATION PLAN / NEW ORDERS: Follow up with Dr. Alfaro in 4-8 weeks for Trigger Point Injections (TPI) [phone] Calls are accepted Monday-Monday, 7:30am-4pm, excluding observed holidays. We highly encourage the use of [employer] for non-urgent matters as well as prescription refill requests. MEDICATION REFILL REQUESTS: Patients whom are prescribed opioid medications are required to be evaluated at least once every three months or more frequently, as deemed appropriate by the prescribing provider. Patients who are prescribed non-opioid medications are required to be evaluated at least every 6 months or more frequently, as deemed appropriate by the prescribing provider. To allow timely scheduling of evaluations, please contact the office to schedule your appointment 4-6 weeks in advance. For all opioid/narcotic prescription refills and non-opioid/non-narcotic refills with no refills remaining, please contact the Pain Management Center 5-7 business days prior to the date of need to avoid any delays. Refills may be requested thru MyChart which is the preferred method for refill requests. Call [phone] and leave a message on the RN Message Line with the following information: Name, date of , and phone number Name(s) of the medication(s) needing refill Name and number for the pharmacy where the refill(s) should be sent Please note, prescription refill dates are calculated based on the quantity of medication provided,not the date on which the pharmacy filled the prescription. If you need to schedule or change an appointment with Dr. Goldberg - Pain Psychologist - [phone] MRI Scheduling - [phone] We encourage you to schedule at [facility] as our physicians work closely withthe Radiology Imaging Department and the physicians that read the images. In addition the images are of higher quality, and we receive the results quicker. If you choose to use an imaging location outside of [facility] You will need to bring the CD to the film library at [facility] prior to any future appointments. You will need to bring a copy of the report to your next appointment. Please notify us immediately with a message on our nurse line or by sending a DropMat message with the following: Location Location phone number Date your MRI is scheduled Please note that MRI authorizations may take up to 7-14 business days for determination. Pain Management will not fill out workers compensation forms or disability forms. Please contact your primary care physician. Pain Management does not print or supply copies of medical records. Medical records may be requested thru [facility] medical records department [phone]. We strive to provide you with EXCELLENT service as our patient. You may receive a survey after your visit today. If you can not rate your experience as EXCELLENT, please let us know before you leave how we can improve and better meet your needs. Thank you for choosing [facility] / Pain Management! documented in this encounter Medications at Time [...] 04/26/[address] (CYMBALTA) 60 mg capsule Take 1 capsule (60 mg total) by mouth daily 90 capsule 12/15/2022 3 lidocaine (XYLOCAINE) 5 % ointment Apply topically 2 (two) times a day as needed for pain 35.44 g 5 08/21/2020 3 documented as of this encounter Discharge Disposition Disposition Code Departure Means Destination Discharge to home or self care documented in this encounter Progress Notes * Dayanna Crump MD - 02/01/2023 11:45 AM CDT Progress Note Patient Name: Aleksandar Olsen : 1980 Today's Date: 02/01/2023 PCP: Roxanna Moreno MD Referring: Roxanna Moreno MD Interval History: Today 02/01/2023 SUBJECTIVE Chief complaint of Chief Complaint Patient presents with Injections Patient is here today for right T7-T9 intercostal nerve block for right sided thoracic back pain. He had the same procedure on 05/11/22 with improvement in pain. had T7-9 intercostal nerve blocks which provided about 50-75% relief similar to prior injections and allowed him to be more active with less pain. His pain regimen includes Lyrica, duloxetine, sertraline, TENS unit as well as OTC topicals (voltaren, lidocaine) Patient's Medications New Prescriptions No medications on file Previous Medications ATORVASTATIN (LIPITOR) 40 MG TABLET Take 40 mg by mouth daily Authorizing Provider: Fernanda Pompa MD Notes: -- DULOXETINE DR (CYMBALTA) 60 MG CAPSULE Take 1 capsule (60 mg total) by mouth daily Authorizing Provider: Madina Husain NP Notes: -- [...] APPLY 2 GMS TOPICALLY QID Authorizing Provider: Fernanda Pompa MD Notes: -- Modified Medications No medications on file Discontinued Medications No medications on file ROS Review of Systems Musculoskeletal: Positive for back pain. OBJECTIVE Vitals: Most Recent : Vitals BP (!) 169/101 Pulse 76 Temp 97.9 ??F (36.6 ??C) Resp 18 SpO2 96% Physical Exam: Physical Exam Pulmonary: Effort: Pulmonary effort is normal. Neurological: Mental Status: He is alert and oriented to person, place, and time. Labs/Radiology/Diagnostic Review: No recent results to review ASSESSMENT Mr. Aleksandar Olsen is a 42 y.o. male who presents with Problem List Items Addressed This Visit None Visit Diagnoses Neuralgia Relevant Orders Imaging Intercostal Nerve Block (72073) PLAN: 1. Intervention: Right T7, T8, and [...] Previously had a CT cervical spine at [place] and images were previously reviewed. Report scanned into [employer] tab, dated 08/10/2018. 4. Referral: He has participated in PT. Continue HEP 5. Follow-up: for TPI 02/01/23 documented in this encounter Miscellaneous Notes * Op Note - Dayanna Crump MD - 02/01/2023 11:45 AM CDT Patient ID Patient Name: Aleksandar Olsen : 1980 DOS: 02/01/2023 PCP: Roxanna Moreno MD Surgeon SURGEON: Dayanna Crump MD CIRCULATOR SURGEON: Procedures NAME OF PROCEDURE: Intercostal nerve block at Right T7, T8, and T9, under Fluoroscopy. PRE-PROCEDURE DIAGNOSES: Other Chronic Pain and Intercostal Neuralgia. POST-PROCEDURE DIAGNOSES: same INDICATION FOR PROCEDURE: pain INFORMED CONSTENT: After reviewing the procedure [...] images. Radiographic contrast (Omnipaque 300) wasinjected (volume 1 ml.) There was spread of contrast along the inferior aspect of the rib. 3ml of amixture of 0.25% bupivacine with depomedrol 80 mg was injected, resulting in dispersion of [...] None No Resident involved on case Dayanna Curmp MD 02/01/2023 12:53 PM * Addendum Note - Sergo Laurent RT - 02/01/2023 11:45 AM CDTEncounter addended by: Sergo Laurent RT on: 02/01/2023 1:30 PM Actions taken: Imaging Exam ended, Charge Capture section accepted * Addendum Note - Sergo Laurent RT - 02/01/2023 11:45 AM CDTEncounter addended by: Sergo Laurent RT on: 02/01/2023 1:33 PM Actions taken: Imaging Exam ended, Charge Capture section accepted documented in this encounter Plan of Treatment Not on file documented as of this encounter Goals Goal Patient Goal Type Associated Problems Recent Progress Patient-Stated? Author CCM Chronic Pain Care Plan Chronic Care Management No change(07/21 7:32 AM SOCIAL SERVICES ANALYST) No Saran Quiñones RN Note: Problem: Chronic Pain Goals: 1. Minimize further functional decline 2. Maximize quality of life 3. Control pain Strategies: - Activity/exercise program recommendation - Conservative stepwise pain medicine strategy with multi-disciplinary approach - Recommend healthy lifestyle strategies and compensatory methods as needed Reduce the likelihood of falling Lifestyle No change(07/21 7:32 AM SOCIAL SERVICES ANALYST) Kenyatta Carlton RN Note: Below are four [...] on stairs Contact your local community or [facility] for information on exercise, fall prevention programs, or options for improving home safety. documented as of this encounter Procedures Procedure Name Priority Date/Time Associated Diagnosis Comments PAIN MGMT IMAGING INTERCOSTAL NERVE BLOCK Schedule Routine, Read Routine (OP Routine) 02/01/2023 12:35 PM CDT Neuralgia documented in this encounter Results * Imaging Trigger Point INJ 3+ Muscle Groups (81322) (06/16/2023 11:25 AM CDT) Narrative [facility] - 06/16/2023 11:25 AM CDT The images from this study are not interpreted by Radiology. ??Please refer to the physician's procedure / OR operative note. us Dayanna Crump MD IMG PAIN MGMT PROCEDU RES Final Result Performing Organization Address City/[facility] Co de Phone Number [email or web address] * Imaging Intercostal Nerve Block (10587) (02/01/2023 12:35 PM CDT) Narrative [facility] - 02/01/2023 1:33 PM CDT The images from this study are not interpreted by Radiology. ??Please refer to the physician's procedure / OR operative note. Madina Husain NP IMG PAIN MGMT PROCEDURES Fin al Result [facility] documented in this encounter Visit Diagnoses Diagnosis Neuralgia- Primary Unspecified neuralgia, neuritis, and radiculitis Other myositis, other site Intercostal neuralgia- Primary Other nerve root and plexus disorders Other myositis, other site documented in this encounter Administered Medications Inactive Administered Medications - up to 3 most recent administrations Medication Order MAR Action Action Date Dose Rate Site BUPivacaine (MARCAINE) 0.25 % (2.5 mg/mL) preservative free injection As needed, Starting on Mon02/01/23 at 1235, Intra-Op Given 02/01/2023 12:35 PM CDT 8 mL iohexoL (OMNIPAQUE) 300 mg iodine/mL injection solution As needed, Starting on Mon02/01/23 at 1235, Intra-Op Given 02/01/2023 12:35 PM CDT 1 mL lidocaine PF (XYLOCAINE) 10 mg/mL (1 %) preservative free injection As needed, Starting on Mon02/01/23 at 1232, Intra-Op Given 02/01/2023 12:32 PM CDT 2 mL methylPREDNISolone acetate (DEPO-medrol) injection As needed, Starting on Mon02/01/23 at 1235, Intra-Op Given 02/01/2023 12:35 PM CDT 80 mg documented in this encounter Orders Discharge Count Last Ordered Date First Orde red Date DISCHARGE PATIENT 1 02/01/2023 documented in this encounter Care Teams Machine Bander And Cellophaner Helper Relationship Specialty Start Date End Date Roxanna Moreno MD PCP - General 10/21/16 Dayanna Crump MD Consulting Physician Pain Management 01/30/23 documented as of this encounter
--- OUTSIDE RECORDS SUMMARY | 2024-08-03 14:52 | XMS_ITS | Encounter Summary ---
Author Organization [facility] Address [address] [place] [address] Phone Care Team Providers Care Jewelry Jobber Name Role Phone Roxanna Moreno MD Primary Care Provider + Dayanna Crump MD Unavailable [phone] Reason for Referral * Procedure (Routine) - Closed Specialty Diagnoses / Procedures Referred By Rayne navarro Referred To Contact Diagnoses Mass of soft tissue of left upper extremity Procedures Excision Soft Tissue Mass/Tumor Farida Brunner NP [address] [facility] [address] [place] [address] Phone: tel: fax: [facility] (All Locations) Referral ID Status Reason Start Date Expiration Date Visits Re quested Visits Authorized [id number] Closed 12/27/2023 01/25/2025 1 1 Encounter Details Date Type Department Care Team (Late st Contact Info) Description 12/27/2023 Orders Only [facility] Physicians [facility] Surgery [address] [facility] [address] [place] [phone] Tsering Delatorre RMA Mass of soft tissue of left upper extremity (Primary Dx) Social History Tobacco Use Types [...] on file Legal Sex Male 1:57 AM REGISTER IN CHANCERY Gender Identity Male 06/20/2021 2:35 PM REGISTER IN CHANCERY Sexual Orientation Straight 06/20/2021 2: 35 PM REGISTER IN CHANCERY documented as of this encounter Plan of Treatment Scheduled Orders Name Type Priority Associated Diagnoses Orde r Schedule Excision Soft Tissue Mass/Tumor Procedures Routine Mass of soft tissue of left upper extremity Expected: 02/06/2024, Expires: 12/26/2024 documented as of this encounter Goals Goal Patient Goal Type Associated Problems Recent Progress Patient-Stated? Author CCM Chronic Pain Care Plan Chronic Care Management No change(07/21 7:32 AM REGISTER IN CHANCERY) No Saran Quiñones, MABLE Note: Problem: Chronic Pain Goals: 1. Minimize further functional decline 2. Maximize quality of life 3. Control pain Strategies: - Activity/exercise program recommendation - Conservative stepwise pain medicine strategy with multi-disciplinary approach - Recommend healthy lifestyle strategies and compensatory methods as needed Reduce the likelihood of falling Lifestyle No change(07/21 7:32 AM REGISTER IN CHANCERY) No Kenyatta Kaufman, MABLE Note: Below are [...] as of this encounter Visit Diagnoses Diagnosis Mass of soft tissue of left upper extremity- Primary documented in this encounter Care Teams Jewelry Jobber Relationship Specialty Start Date End Date Roxanna Moreno MD PCP - General 10/21/16 Dayanna Crump MD Consulting Physician Pain Management 01/30/23 documented as of this encounter
--- OUTSIDE RECORDS SUMMARY | 2024-08-03 14:52 | XMS_ITS | Encounter Summary ---
Author Organization [facility] Healthcare Address [address] [place] [address] Care Team Providers Care Safety Fire Boss Name Role Phone Roxanna Moreno MD Primary Care Provider + Encounter Details Date Type Department Care Team (Late st Contact Info) Description 05/19/2022 Orders Only [facility] [address] [facility] 1st [place] [address] Sharonda Munson RN Social History Tobacco Use Types Packs/Day Years [...] on file Legal Sex Male 1:57 AM PASSENGER SERVICE SUPERVISOR Gender Identity Male 06/20/2021 2:35 PM PASSENGER SERVICE SUPERVISOR Sexual Orientation Straight 06/20/2021 2: 35 PM PASSENGER SERVICE SUPERVISOR documented as of this encounter Plan of Treatment Not on file documented as of this encounter Goals Goal Patient Goal Type Associated Problems Recent Progress Patient-Stated? Author CCM Chronic Pain Care Plan Chronic Care Management No change(07/21 7:32 AM PASSENGER SERVICE SUPERVISOR) No Saran Quiñones, MABLE Note: Problem: Chronic Pain Goals: 1. Minimize further functional decline 2. Maximize quality of life 3. Control pain Strategies: - Activity/exercise program recommendation - Conservative stepwise pain medicine strategy with multi-disciplinary approach - Recommend healthy lifestyle strategies and compensatory methods as needed Reduce the likelihood of falling Lifestyle No change(07/21 7:32 AM PASSENGER SERVICE SUPERVISOR) Kenyatta Carlton, RN Note: Below are four [...] on stairs Contact your local community or [facility] for information on exercise, fall prevention programs, or options for improving home safety. documented as of this encounter Visit Diagnoses Not on filedocumented in this encounter Care Teams Safety Fire Boss Relationship Specialty Start Date End Date Roxanna Moreno MD PCP - General 10/21/16 documented as of this encounter
--- OUTSIDE RECORDS SUMMARY | 2024-08-03 14:52 | XMS_ITS | Encounter Summary ---
Author Organization [facility] Healthcare Address [address] [place] [address] Care Team Providers Care Glass Decorator Name Role Phone Roxanna Moreno MD Primary Care Provider + Dayanna Crump MD Unavailable [phone] Reason for Referral * Diagnostic Imaging (Routine) - Pending Review Specialty Diagnoses / Procedures Referred By Rayne navarro Referred To Contact Diagnoses Other myositis, other site Procedures Imaging Trigger Point INJ 1-2 Muscle Groups (32717) Dayanna Crump MD Phone: tel: fax: [address] [phone] Referral ID Status Reason Start Date Expiration Date V isits Requested Visits Authorized [id number] Pending Review 07/21/2023 08/19/2024 1 1 D AND GRAPHITE INSPECTOR * Diagnostic Imaging (Routine) - Closed Specialty Diagnoses / Procedures Referred By Rayne navarro Referred To Contact Diagnoses Intercostal neuralgia Procedures Imaging Intercostal Nerve Block (45515) Dayanna Crump MD Phone: tel: fax: [address] [phone] Referral ID Status Reason Start Date Expiration Date Visits Re quested Visits Authorized [id number] Closed 06/16/2023 07/15/2024 1 1 D AND GRAPHITE INSPECTOR Reason for Visit * Diagnostic Imaging (Routine) - Closed Specialty Diagnoses / Procedures Referred By Rayne navarro Referred To Contact Diagnoses Intercostal neuralgia Procedures Imaging Intercostal Nerve Block ([address]146) Dayanna Crump MD Phone: tel: fax: [address] [phone] Referral ID Status Reason Start Date Expiration Date Visits Re quested Visits Authorized [id number] Closed 06/16/2023 07/15/2024 1 1 Encounter Details Date Type Department Care Team (Latest Contact Info) Description 07/21/2023 7:18 AM BAKED AND GRAPHITE INSPECTOR - 07/21/2023 11:59 PM BAKED AND GRAPHITE INSPECTOR Hospital Encounter [facility] [address] 1st [place] [phone] Dayanna Crump MD [address] [place] [address] Intercostal neuralgia (Primary Dx); Other myositis, other site Discharge [...] on file Legal Sex Male 1:57 AM BAKED AND GRAPHITE INSPECTOR Gender Identity Male 06/20/2021 2:35 PM BAKED AND GRAPHITE INSPECTOR Sexual Orientation Straight 06/20/2021 2: 35 PM BAKED AND GRAPHITE INSPECTOR documented as of this encounter Last Filed Vital Signs Vital Sign Reading Time Taken Comments Blood Pressure 158/99 07/21/2023 8:24 AM BAKED AND GRAPHITE INSPECTOR Pulse 72 07/21/2023 8:24 AM BAKED AND GRAPHITE INSPECTOR Temperature 36.4 ??C (97.6 ??F) 07/21/2023 7:32 AM CS T Respiratory Rate 16 07/21/2023 8:15 AM BAKED AND GRAPHITE INSPECTOR Oxygen Saturation 98% 07/21/2023 8:24 AM BAKED AND GRAPHITE INSPECTOR Inhaled Oxygen Concentration - - Weight - - Height - - Body Mass Index - - documented in this encounter Discharge Instructions * Discharge Instructions* Bernadette Andrews RN - 07/21/2023 7:41 AM BAKED AND GRAPHITE INSPECTOR [facility] POST-PROCEDURE PATIENT EDUCATION The following procedure was performed in clinic today: Right T7, T8, T9 ICNB You have received two medications in your [...] delaying steroid injections when possible. [facility] DISCHARGE INFORMATION PLAN / NEW ORDERS: Follow up in 8-12 weeks for TPI [phone] Calls are accepted Monday-Monday, 7:30am-4pm, excluding observed holidays. We highly encourage the use of [employer] LS15hart for non-urgent matters as well as prescription refill requests. If you are scheduled for an injection and have an active infection and/or feeling ill in any way, please contact the office for further instructions. MEDICATION REFILL REQUESTS: To allow timely scheduling of evaluations, please contact the office to schedule your appointment 6-8 weeks in advance. For all opioid/narcotic prescription refills and non-opioid/non-narcotic refills with no refills remaining, please contact the Pain Management Center 5-7 business days prior to the date of need to avoid any delays. Refills may be requested thru MyChart which is the preferred method for refill requests. Call [phone] and leave a message on the RN Message Line with the following information: Name, date of , and phone number Name(s) of the medication(s) needing refill Name and number for the pharmacy where the refill(s) should be sent Please note, prescription refill dates are calculated based on the quantity of medication provided,not the date on which the pharmacy filled the prescription. Patients whom are prescribed opioid medications are required to be evaluated at least once every three months or more frequently, as deemed appropriate by the prescribing provider. Patients who are prescribed non-opioid medications are required to be evaluated at least every 6 months or more frequently, as deemed appropriate by the prescribing provider. [] Physical Therapy Scheduling - [phone] [] Dr. Goldberg - Pain Psychologist - [phone] [] MRI Scheduling - [phone] We encourage you to schedule at [facility] as our physicians work closely withthe Radiology Imaging Department and the physicians that read the images. In addition the images are of higher quality, and we receive the results quicker. If you choose to use an imaging location outside of [facility] You will need to bring the CD to the film library at [facility] prior to any future appointments. You will need to bring a copy of the report to your next appointment. Please notify us immediately with a message on our nurse line or by sending a Red-rabbit message with the following: Location Location phone number Date your MRI is scheduled Please note that MRI authorizations may take up to 7-14 business days for determination. Pain Management will not fill out workers compensation forms or disability forms. Please contact your primary care physician. Pain Management does not print or supply copies of medical records. Medical records may be requested thru [facility] medical records department [phone]. We strive to provide you with EXCELLENT service as our patient. You may receive a survey after your visit today. If you can not rate your experience as EXCELLENT, please let us know before you leave how we can improve and better meet your needs. Thank you for choosing [facility] / Pain Management! D AND GRAPHITE INSPECTOR D AND GRAPHITE INSPECTOR documented in this encounter Medications at Time of Discharge atorvastatin (LIPITOR) 40 mg tablet Take 1 tablet (40 mg total) by mouth daily 07/28/2021 hydroCHLOROthiaz jamaica (MICROZIDE) 12.5 mg capsule Take 1 capsule (12.5 mg total) by mouth daily 07/23/2021 irbesartan (AVAPRO) 300 mg tabletIndication s:hypertension Take 1 tablet (300 mg total) by mouth every morning 3 01/18/2018 lidocaine (XYLOCAINE) 5 % ointment Apply topically 2 (two) times a day as needed for pain 35.44 g 5 05/22/2023 naproxen (ALEVE) 220 mg tablet Take 3 [...] unit with 2-4 electrodes 1 Device 12/13/2018 testosterone cypionate (DEPO-TESTOTERON E) 200 mg/mL injection Inject 1 mL (200 mg total) into the muscle as instructed every 14 (fourteen) days 06/15/2023 Voltaren Arthritis Pain 1 % gel APPLY 2 GMS TOPICALLY QID 04/26/2020 Wegovy 2.4 mg/0.75 mL auto-injector 07/20/[address] (CYMBALTA) 60 mg capsule Take 1 capsule (60 mg total) by mouth daily 90 capsule 1 03/13/2023 4 documented as of this encounter Discharge Disposition Disposition Code Departure Means Destination Discharge to home or self care documented in this encounter Progress Notes * Dayanna Crump MD - 07/21/2023 7:30 AM CST Progress Note Patient Name: Aleksandar Olsen : 1980 Today's Date: 07/21/2023 PCP: Roxanna Moreno MD Referring: Dayanna Crump* Interval History: Today 07/21/2023 SUBJECTIVE Chief complaint of No chief complaint on file. Patient is here today for right T7-T9 intercostal nerve block for right sided thoracic back pain During his last visit he had TPI for back pain with 50% improvement in pain Patient's Medications New Prescriptions No medications on file Previous Medications ATORVASTATIN (LIPITOR) 40 MG TABLET Take 1 tablet (40 mg total) by mouth daily Authorizing Provider: Fernanda Pompa MD Notes: -- DULOXETINE DR (CYMBALTA) 60 MG CAPSULE Take 1 capsule (60 mg total) by mouth daily Authorizing Provider: Madina Husain NP Notes: -- HYDROCHLOROTHIAZIDE (MICROZIDE) 12.5 MG CAPSULE Take 1 capsule (12.5 mg total) by mouth daily Authorizing Provider: Fernanda Pompa MD Notes: -- IRBESARTAN (AVAPRO) 300 MG TABLET Take 1 tablet (300 mg total) by mouth every morning Authorizing Provider: Fernanda Pompa MD Notes: -- LIDOCAINE (XYLOCAINE) 5 % OINTMENT Apply topically 2 (two) times a day as needed for pain Authorizing Provider: Madina Husain NP Notes: -- NAPROXEN (ALEVE) 220 MG TABLET Take 3 tablets (660 mg total) by mouth every 12 (twelve) hours as needed for pain Authorizing Provider: Fernanda Pompa MD Notes: -- PREGABALIN (LYRICA) 50 MG CAPSULE Take 1 capsule (50 mg total) by mouth 3 (three) times a day Authorizing Provider: Dayanna Crump MD Notes: -- SERTRALINE (ZOLOFT) 50 MG TABLET Take 1 tablet (50 mg total) by mouth every morning Authorizing Provider: Fernanda Pompa MD Notes: -- TENS UNITS (TENS 502) DEVICE TENS unit with 2-4 electrodes Authorizing Provider: Dayanna Crump MD Notes: -- TESTOSTERONE CYPIONATE (DEPO-TESTOTERONE) 200 MG/ML INJECTION Inject 1 mL (200 mg total) into the muscle as instructed every 14 (fourteen) days Authorizing Provider: Fernanda Pompa MD Notes: -- VOLTAREN ARTHRITIS PAIN 1 % GEL APPLY 2 GMS TOPICALLY QID Authorizing Provider: Fernanda Pompa MD Notes: -- WEGOVY 2.4 MG/0.75 ML AUTO-INJECTOR Authorizing Provider: Fernanda Pompa MD Notes: -- Modified Medications No medications on file Discontinued Medications No medications on file ROS Review of Systems Musculoskeletal: Positive for back pain. OBJECTIVE Vitals: Most Recent : Vitals BP 162/90 Pulse 80 Temp 97.6 ??F (36.4 ??C) Resp 16 SpO2 97% Physical Exam: Physical Exam Pulmonary: Effort: Pulmonary effort is normal. Neurological: Mental Status: He is alert and oriented to person, place, and time. Labs/Radiology/Diagnostic Review: No recent results to review ASSESSMENT Mr. Aleksandar Olsen is a 42 y.o. male who presents with Problem List Items Addressed This Visit Neuro Intercostal neuralgia Relevant Orders Imaging Intercostal Nerve Block (25199) PLAN: 1. Intervention: Right T7, T8, and T9 intercostal block TPI 06/16/23 provided 50% improvement in pain - Continue Medtronic SCS use for back and right chest pain. Pt uses high frequency setting intermittently. 2. Medications: a. Opioids: none indicated at this time. b. Adjuvants: continue lidocaine cream, voltaren gel, duloxetine 60 mg daily, TENS unit -Continue Lyrica 50 mg TID (higher doses make him drowsy). 3. Imaging: Previously had a CT cervical spine at [facility] and images were previously reviewed. Report scanned into media tab, dated 08/10/2018. 4. Referral: He has participated in PT. Continue HEP 5. Follow-up: TPI in 8-12 weeks 07/21/23 D AND GRAPHITE INSPECTOR documented in this encounter Miscellaneous Notes * Op Note - Dayanna Crump MD - 07/21/2023 7:30 AM CST Patient ID Patient Name: Aleksandar Olsen : 1980 DOS: 07/21/2023 PCP: Roxanna Moreno MD Surgeon SURGEON: Dayanna Crump MD DIRECTOR MEDIA SURGEON: Procedures NAME OF PROCEDURE: Intercostal nerve block at Right T7, T8, and T9, under Fluoroscopy. PRE-PROCEDURE DIAGNOSES: Other Chronic Pain and Intercostal Neuralgia. POST-PROCEDURE DIAGNOSES: same INDICATION FOR PROCEDURE: same INFORMED CONSTENT: After reviewing the procedure with [...] images. Radiographic contrast (Omnipaque 300) wasinjected (volume 0.5 ml.) There was spread of contrast along the inferior aspect of the rib. 3ml ofa mixture of 0.25% bupivacine with depomedrol 40 mg [...] Resident involved on case Dayanna Crump MD 07/21/2023 8:29 AM D AND GRAPHITE INSPECTOR * Addendum Note - Sergo Laurent, RT - 07/21/2023 7:30 AM CSTEncounter addended by: Sergo Laurent RT on: 07/21/2023 9:27 AM Actions taken: Imaging Exam ended, Charge Capture section accepted D AND GRAPHITE INSPECTOR documented in this encounter Plan of Treatment Scheduled Orders Name Type Priority Associated Diagnoses Orde r Schedule Imaging Trigger Point INJ 1-2 Muscle Groups () Imaging Schedule Routine, Read Routine (OP Routine) Other myositis, other site Expected: 07/21/2023, Expires: 07/21/2024 documented as of this encounter Goals Goal Patient Goal Type Associated Problems Recent Progress Patient-Stated? Author CCM Chronic Pain Care Plan Chronic Care Management No change(07/21 7:32 AM BAKED AND GRAPHITE INSPECTOR) No Saran Quiñones, RN Note: Problem: Chronic Pain Goals: 1. Minimize further functional decline 2. Maximize quality of life 3. Control pain Strategies: - Activity/exercise program recommendation - Conservative stepwise pain medicine strategy with multi-disciplinary approach - Recommend healthy lifestyle strategies and compensatory methods as needed Reduce the likelihood of falling Lifestyle No change(07/21 7:32 AM BAKED AND GRAPHITE INSPECTOR) No Kenyatta Kaufman, MABLE Note: Below [...] on stairs Contact your local community or [facility] for information on exercise, fall prevention programs, or options for improving home safety. documented as of this encounter Procedures Procedure Name Priority Date/Time Associated Diagnosis Comments PAIN MGMT IMAGING INTERCOSTAL NERVE BLOCK Schedule Routine, Read Routine (OP Routine) 07/21/2023 9:25 AM BAKED AND GRAPHITE INSPECTOR Intercostal neuralgia documented in this encounter Results * Imaging Intercostal Nerve Block (10461) (07/21/2023 9:25 AM BAKED AND GRAPHITE INSPECTOR) Narrative [facility] - 07/21/2023 9:27 AM BAKED AND GRAPHITE INSPECTOR The images from this study are not interpreted by Radiology. ??Please refer to the physician's procedure / OR operative note. Dayanna Crump MD IMG PAIN MGMT PROCEDU RES Final Result [facility] documented in this encounter Visit Diagnoses Diagnosis Intercostal neuralgia- Primary Other nerve root and plexus disorders Other myositis, other site documented in this encounter Administered Medications Inactive Administered Medications - up to 3 most recent administrations Medication Order MAR Action Action Date Dose Rate Site BUPivacaine (MARCAINE) 0.25 % (2.5 mg/mL) preservative free injection As needed, Starting on Mon07/21/23 at 0819, Intra-Op Given 07/21/2023 8:19 AM BAKED AND GRAPHITE INSPECTOR 8 mL iohexoL (OMNIPAQUE) 300 mg iodine/mL injection solution As needed, Starting on Mon07/21/23 at 0818, Intra-Op Given 07/21/2023 8:18 AM BAKED AND GRAPHITE INSPECTOR 1 mL lidocaine PF (XYLOCAINE) 10 mg/mL (1 %) preservative free injection As needed, Starting on Mon07/21/23 at 0817, Intra-Op Given 07/21/2023 8:17 AM BAKED AND GRAPHITE INSPECTOR 5 mL methylPREDNISolone acetate (DEPO-medrol) injection As needed, Starting on Mon07/21/23 at 0820, Intra-Op Given 07/21/2023 8:20 AM BAKED AND GRAPHITE INSPECTOR 80 mg documented in this encounter Historical Medications * This list may reflect changes made after this encounter. Medication Sig Dispense Quantity Refills Last Filled Start D ate End Date Wegovy 2.4 mg/0.75 mL auto-injector 07/20/2023 added in this encounter Care Teams Glass Decorator Relationship Specialty Start Date End Date Roxanna Moreno MD PCP - General 10/21/16 Dayanna Crump MD Consulting Physician Pain Management 01/30/23 documented as of this encounter
--- OUTSIDE RECORDS SUMMARY | 2024-08-03 14:52 | XMS_ITS | Encounter Summary ---
Author Organization [facility] Healthcare Address [address] [place] [id number] Care Team Providers Care Career Services Manager Name Role Phone Roxanna Moreno MD Primary Care Provider + Dayanna Crump MD Unavailable [phone] Reason for Referral * Diagnostic Imaging (Routine) - Closed Specialty Diagnoses / Procedures Referred By Contac t Referred To Contact Diagnoses Mass of soft tissue of left upper extremity Procedures US Upper Extremity Left Limited Farida Brunner NP [address] [facility] [place] [address] [place] [address] Phone: tel: fax: [address] [phone] Referral ID Status Reason Start Date Expiration Date Visits Re quested Visits Authorized [id number] Closed 11/27/2023 12/26/2024 1 1 Reason for Visit * Diagnostic Imaging (Routine) - Closed Specialty Diagnoses / Procedures Referred By Contmarsha navarro Referred To Contact Diagnoses Mass of soft tissue of left upper extremity Procedures US Upper Extremity Left Limited Farida Brunner NP [address] [facility] [place] [address] [place] [address] Phone: tel: fax: [address] [phone] Referral ID Status Reason Start Date Expiration Date Visits Re quested Visits Authorized [id number] Closed 11/27/2023 12/26/2024 1 1 Encounter Details Date Type Department Care Team (Latest Contact Info) Description 12/27/2023 12:14 PM CDT - 12/27/2023 11:59 PM CDT Hospital Encounter [facility] [address] [place] [address] Mass of soft tissue of left upper extremity Discharge Disposition: Discharge to home or self [...] on file Legal Sex Male 1:57 AM BUNDLE BREAKER Gender Identity Male 06/20/2021 2:35 PM BUNDLE BREAKER Sexual Orientation Straight 06/20/2021 2: 35 PM BUNDLE BREAKER documented as of this encounter Medications at Time of Discharge atorvastatin (LIPITOR) 40 mg tablet Take 1 tablet (40 mg total) by mouth daily 07/28/[address] (CYMBALTA) 60 mg capsule TAKE 1 CAPSULE(60 MG) BY MOUTH DAILY 90 capsule 1 08/16/2023 hydroCHLOROthiaz jamaica (MICROZIDE) 12.5 mg capsule Take [...] 04/26/2020 Wegovy 2.4 mg/0.75 mL auto-injector 07/20/2023 documented as of this encounter Discharge Disposition Disposition Code Departure Means Destination Discharge to home or self care documented in this encounter Plan of Treatment Not on file documented as of this encounter Goals Goal Patient Goal Type Associated Problems Recent Progress Patient-Stated? Author CCM Chronic Pain Care Plan Chronic Care Management No change(07/21 7:32 AM BUNDLE BREAKER) No Saran Quiñones, RN Note: Problem: Chronic Pain Goals: 1. Minimize further functional decline 2. Maximize quality of life 3. Control pain Strategies: - Activity/exercise program recommendation - Conservative stepwise pain medicine strategy with multi-disciplinary approach - Recommend healthy lifestyle strategies and compensatory methods as needed Reduce the likelihood of falling Lifestyle No change(07/21 7:32 AM BUNDLE BREAKER) No Kenyatta Kaufman, RN Note: Below are [...] Procedure Name Priority Date/Time Associated Diagnosis Comments US UPPER EXTREMITY LEFT LIMITED Schedule Routine, Read Routine (OP Routine) 12/27/2023 12:44 PM CDT Mass of soft tissue of left upper extremity documented in this encounter Results * US Upper Extremity [...] tissues about the left shoulder ??by the ms sql dba, with selected grayscale and color Doppler images [...] Electronically signed by ??Ashley Goddard M.D. TW: ERICA D: ??12/29/2023 8:59 AM T: ??12/29/2023 8:59 AM Report ID: [id number] Reading Location: ??[id number] Procedure Note Ashley Goddard MD - 12/29/2023 EXAM DESCRIPTION: US UPPER EXTREMITY LEFT LIMITED REASON FOR STUDY: Palpable painless soft tissue mass about the leftshoulder for 7 years. TECHNIQUE: A Dynamic assessment was performed of the soft tissues aboutthe left shoulder by the ms sql dba, with selected grayscale and colorDoppler images acquired [...] Electronically signed by Ashley Goddard M.D. TW: ERICA Report ID: [id number] Reading Location: [place] [address] us Farida Brunner ORE CRUSHER IMG US PROCEDURES Final Result documented in this encounter Visit Diagnoses Diagnosis Mass of soft tissue of left upper extremity documented in this encounter Care Teams Career Services Manager Relationship Specialty Start Date End Date Roxanna Moreno MD PCP - General 10/21/16 Dayanna Crump MD Consulting Physician Pain Management 01/30/23 documented as of this encounter
--- OUTSIDE RECORDS SUMMARY | 2024-08-03 14:52 | XMS_ITS | Encounter Summary ---
Author Organization [facility] Healthcare Address [address] [place] [address] Care Team Providers Care Family Health Nurse Practitioner Name Role Phone Roxanna Moreno MD Primary Care Provider + Reason for Referral * Diagnostic Imaging (Routine) - Closed Specialty Diagnoses / Procedures Referred By Contmarsha t Referred To Contact Diagnoses Neuralgia Procedures Imaging Intercostal Nerve Block (58563) Madina Husain NP Phone: tel: fax: [address] [phone] Referral ID Status Reason Start Date Expiration Date Visits Re quested Visits Authorized [id number] Closed 01/16/2023 02/15/2024 1 1 Encounter Details Date Type Department Care Team (Late st Contact Info) Description 01/16/2023 Orders Only [facility] [address] [facility] 1st [place] [phone] Madina Husain NP [address] [place] [address] Neuralgia (Primary Dx) Social History Tobacco Use Types [...] on file Legal Sex Male 1:57 AM STRATEGIC BUSINESS DEVELOPMENT Gender Identity Male 06/20/2021 2:35 PM STRATEGIC BUSINESS DEVELOPMENT Sexual Orientation Straight 06/20/2021 2: 35 PM STRATEGIC BUSINESS DEVELOPMENT documented as of this encounter Plan of Treatment Not on file documented as of this encounter Goals Goal Patient Goal Type Associated Problems Recent Progress Patient-Stated? Author CCM Chronic Pain Care Plan Chronic Care Management No change(07/21 7:32 AM STRATEGIC BUSINESS DEVELOPMENT) No Saran Quiñones, RN Note: Problem: Chronic Pain Goals: 1. Minimize further functional decline 2. Maximize quality of life 3. Control pain Strategies: - Activity/exercise program recommendation - Conservative stepwise pain medicine strategy with multi-disciplinary approach - Recommend healthy lifestyle strategies and compensatory methods as needed Reduce the likelihood of falling Lifestyle No change(07/21 7:32 AM STRATEGIC BUSINESS DEVELOPMENT) No Kenyatta Kaufman, MABLE Note: Below are [...] stairs Contact your local community or [facility] for information on exercise, fall prevention programs, or options for improving home safety. documented as of this encounter Results * Imaging Intercostal Nerve Block (73839) (02/01/2023 12:35 PM CDT) Narrative RAD[facility]PACS[facility] - 02/01/2023 1:33 PM CDT The images from this study are not interpreted by Radiology. ??Please refer to the physician's procedure / OR operative note. us Madina Husain NP IMG PAIN MGMT PROCEDURES Fin al Result RAD_PACS_[facility] documented in this encounter Visit Diagnoses Diagnosis Neuralgia- Primary Unspecified neuralgia, neuritis, and radiculitis Neuralgia- Primary Unspecified neuralgia, neuritis, and radiculitis Other myositis, other site documented in this encounter Care Teams Family Health Nurse Practitioner Relationship Specialty Start Date End Date Roxanna Moreno MD PCP - General 10/21/16 documented as of this encounter
--- OUTSIDE RECORDS SUMMARY | 2024-08-03 14:52 | XMS_ITS | Encounter Summary ---
Author Organization [facility] Address [address] [place] [address] Care Team Providers Care Mobile Home Technician Name Role Phone Roxanna Moreno MD Primary Care Provider + Dayanna Crump MD Unavailable [phone] Reason for Referral * Diagnostic Imaging (Routine) - Closed Specialty Diagnoses / Procedures Referred By Rayne navarro Referred To Contact Diagnoses Intercostal neuralgia Procedures Imaging Intercostal Nerve Block (51199) Dayanna Crump MD Phone: tel: fax: [facility] [address] [place] [address] Referral ID Status Reason Start Date Expiration Date Visits Re quested Visits Authorized [id number] Closed 06/16/2023 07/15/2024 1 1 * Diagnostic Imaging (Routine) - Closed Specialty Diagnoses / Procedures Referred By Rayne navarro Referred To Contact Diagnoses Other myositis, other site Procedures Imaging Trigger Point INJ 3+ Muscle Groups (19097) Dayanna Crump MD Phone: tel: fax: [facility] [address] [place] [address] Referral ID Status Reason Start Date Expiration Date Visits Re quested Visits Authorized [id number] Closed 02/01/2023 03/02/2024 1 1 Reason for Visit * Reason Comments Back Pain Procedure * Diagnostic Imaging (Routine) - Closed Specialty Diagnoses / Procedures Referred By Rayne navarro Referred To Contact Diagnoses Other myositis, other site Procedures Imaging Trigger Point INJ 3+ Muscle Groups () Dayanna Crump MD Phone: tel: fax: [address] [address] Referral ID Status Reason Start Date Expiration Date Visits Re quested Visits Authorized [id number] Closed 02/01/2023 03/02/2024 1 1 Encounter Details Date Type Department Care Team (Latest Contact Info) Description 06/16/2023 8:29 AM CDT - 06/16/2023 11:59 PM CDT Hospital Encounter [facility] [place] [id number] [facility] 1st [place] [address] Dayanna Crump MD [address] [place] [address] Intercostal neuralgia (Primary Dx); Other myositis, other [...] on file Legal Sex Male 1:57 AM ASSEMBLER DC FIELD RING Gender Identity Male 06/20/2021 2:35 PM ASSEMBLER DC FIELD RING Sexual Orientation Straight 06/20/2021 2: 35 PM ASSEMBLER DC FIELD RING documented as of this encounter Discharge Instructions * Discharge Instructions* Almita Mitchell RN - 06/16/2023 8:42 AM CDT PAIN MANAGEMENT [facility] DISCHARGE INFORMATION PLAN / NEW ORDERS: Next available right intracostal nerve block [phone] Calls are accepted Monday-Monday, 7:30am-4pm, excluding observed holidays. We highly encourage the use of MyChart for non-urgent matters as well as prescription [...] the preferred method for refill requests. Call [phone] and leave a message on the RN [...] prescribing provider. [] Physical Therapy Scheduling - [phone] [] Dr. Goldberg - Pain Psychologist - [phone] [] MRI Scheduling - [phone] We encourage you to schedule at [facility] as our physicians work closely withthe Radiology Imaging Department and the physicians that read the images. In addition the images are of higher quality, and we receive the results quicker. If you choose to use an imaging location outside of [facility] You will need to bring the CD to the film library at [facility] prior to any future appointments. You will need to bring a copy of the report to your next appointment. Please notify us immediately with a message on our nurse line or by sending a [employer] message with the following: Location Location phone number Date your MRI is scheduled Please note that MRI authorizations may take up to 7-14 business days for determination. Pain Management will not fill out workers compensation forms or disability forms. Please contact your primary care physician. Pain Management does not print or supply copies of medical records. Medical records may be requested thru [facility] medical records department [phone]. We strive to provide you with EXCELLENT service as our patient. You may receive a survey after your visit today. If you can not rate your experience as EXCELLENT, please let us know before you leave how we can improve and better meet your needs. Thank you for choosing [facility] / Pain Management! PAIN MANAGEMENT CENTER PATIENT EDUCATION TRIGGER POINT INJECTION POST-PROCEDURE INFORMATION SHEET The following symptoms may occur following this procedure and are considered normal. Most symptoms resolve within an hour of the procedure, but may re-occur over the next 24 hours. Dizziness or light headedness upon standing. (Stand slowly form sitting or lying position today.) Slight weakness or numbness in arms or legs. Increased pain or soreness or achiness at the injection site. Assistance with walking may be needed. You may experience a small amount of bruising, bleeding, or swelling at the injection site(s). A cold pack may be used in 20 minute intervals (20 minutes on/20 minutes off) during the first 24 hours.After 24 hours, if discomfort continues, apply heat over the injection site(s) in the same 20 minute intervals. DO NOT lie on top of, or fall asleep while using a heating pad. DO NOT submerse the injection site in water. NO hot tubs, swimming pools, or bath tubs for the next24 hours. You may shower for bathing. Serious complications are rare, but could include: Allergic Reaction Bleeding Infection indicated but not limited to fever over 101, redness or drainage at the injection site Loss of balance/difficulty walking Increasing muscle weakness or prolonged numbness in the arms or legs. Difficulty breathing, shortness of breath If you experience ANY of the above serious symptoms, Call 911 and go to the Emergency Department Notify Pain Management Center AFTER receiving care for the symptoms. documented in this encounter Medications at Time [...] Progress Notes * Dayanna Crump MD - 06/16/2023 8:45 AM CDT Progress Note Patient Name: Aleksandar Olsen : 1980 Today's Date: 06/16/2023 PCP: Roxanna Moreno MD Referring: Roxanna Moreno MD Interval History: Today 06/16/2023 SUBJECTIVE Chief complaint of Chief Complaint Patient presents with Back Pain Procedure Patient is here today for TPI for back pain. He had right T7-T9 intercostal nerve block for right sided thoracic back pain on 02/01/23 with 75% improvement in pain. His pain regimen includes Lyrica, duloxetine, [...] with Problem List Items Addressed This Visit Musculoskeletal and Injuries Other myositis, other site Relevant Orders Imaging Trigger Point INJ 3+ Muscle Groups () PLAN: 1. Intervention: TPI today Right T7, T8, and T9 intercostal block on provided 02/01/23 75% improvement in pain. - Continue Medtronic SCS use for back and right chest pain. Pt uses high frequency setting intermittently. 2. Medications: a. Opioids: none indicated at this time. b. Adjuvants: continue lidocaine cream, voltaren gel, duloxetine 60 mg daily, TENS unit -Continue Lyrica 50 mg TID (higher doses make him drowsy). 3. Imaging: Previously had a CT cervical spine at [place] and images were previously reviewed. Report scanned into media tab, dated 08/10/2018. 4. Referral: He has participated in PT. Continue HEP 5. Follow-up: Right T7, T8, and T9 intercostal block next available 06/16/23 documented in this encounter Miscellaneous Notes * Op Note - Dayanna Crump MD - 06/16/2023 8:45 AM CDT Patient ID Patient Name: Aleksandar Olsen : 1980 DOS: 06/16/2023 PCP: Roxanna Moreno MD Surgeon SURGEON: Dayanna Crump MD SENIOR ACCOUNTANT ANALYST SURGEON: None Diagnosis: back pain NAME OF PROCEDURE: Trigger Point Injections PRE-PROCEDURE CHECK LIST: Patient identification verified Relevant images present Consent obtained H&P/Pre-procedure note completed Other: PRE-PROCEDURE TIME OUT: Verbal agreement among all involved that the patient, procedure, position, operative sites/sides, relevant image labels/orientation, and instruments/implants for the planned procedure are available and correct. After interview and physical exam, with identification of injection sites, the risks and benefits were discussed and consent was obtained. Each site was marked, then prepped with an alcohol prep pad.using a 27 gauge, 1-1/2 inch needle, and no-touch technique, the center of the injection site was located, where 1 ml of injectate 0.25% Bupivacaine Total ml injected: 7 ml Total number of muscle groups: 2 INJECTION SITES: Splenius Capititis: [] Right [] Left Splenius Cervices: [] Right [] Left Masseter: [] Right [] Left Pterygoids Medial: [] Right [] Left Pterygoids Lateral: [] Right [] Left Sternocleidomastoid: [] Right [] Left Scalenus: [] Right [] Left Trapezius, Upper: [] Right [] Left Trapezius, Mid: [] Right [] Left Trapezius, Lower: [x] Right [x] Left Rhomboids: [] Right [] Left Levator Scapulae: [] Right [] Left Pectoralis Minor: [] Right [] Left Pectoralis Major: [] Right [] Left Serratus Anterior: [] Right [] Left Teres Major/Minor: [] Right [] Left Quadrates Lumborum: [] Right [] Left Paravertebral, Cerical: [] Right [] Left Paravertebral, Thoracic: [x] Right [] Left Paravertebral, Lumbar: [] Right [] Left Gluteus Americo: [] Right [] Left Gluteus Medius: [] Right [] Left Gluteus Minimus: [] Right [] Left Pyriformis: [] Right [] Left Tensor Fasciae Latae: [] Right [] Left Vastus Lateralis: [] Right [] Left Adductor Eliel: [] Right [] Left Adductor Longus: [] Right [] Left Iliopsoas: [] Right [] Left Other: The patient tolerated the procedure very well without any complications. Dr. Crump was present and participated the entire procedure DISPOSITION: Discharged home in stable condition. Operative Findings: None Estimated Blood Loss: None Intraoperative Fluids: None Specimens: None Blood/Blood Products Transfused: None No Resident involved on case Dayanna Crump MD 06/16/2023 10:29 AM * Addendum Note - Charbel Brandt RT - 06/16/2023 8:45 AM CDTEncounter addended by: Charbel Brandt RT on: 06/16/2023 11:25 AM Actions taken: Imaging Exam ended documented in this encounter Plan of Treatment Not on file documented as of this encounter Goals Goal Patient Goal Type Associated Problems Recent Progress Patient-Stated? Author CCM Chronic Pain Care Plan Chronic Care Management No change(07/21 7:32 AM ASSEMBLER DC FIELD RING) No Saran Quiñones, MABLE Note: Problem: Chronic Pain Goals: 1. Minimize further functional decline 2. Maximize quality of life 3. Control pain Strategies: - Activity/exercise program recommendation - Conservative stepwise pain medicine strategy with multi-disciplinary approach - Recommend healthy lifestyle strategies and compensatory methods as needed Reduce the likelihood of falling Lifestyle No change(07/21 7:32 AM ASSEMBLER DC FIELD RING) No Kenyatta Kaufman, MABLE Note: Below are [...] on stairs Contact your local community or [facility] for information on exercise, fall prevention programs, or options for improving home safety. documented as of this encounter Procedures Procedure Name Priority Date/Time Associated Diagnosis Comments PAIN MGMT IMAGING TRIGGER POINT INJ 3+ MUSCLE GROUPS Schedule Routine, Read Routine (OP Routine) 06/16/2023 11:25 AM CDT Other myositis, other site documented in this encounter Results * Imaging Intercostal Nerve Block (02684) (07/21/2023 9:25 AM ASSEMBLER DC FIELD RING) Narrative [facility] - 07/21/2023 9:27 AM ASSEMBLER DC FIELD RING The images from this study are not interpreted by Radiology. ??Please refer to the physician's procedure / OR operative note. Dayanna COLLAZO PAIN MGMT PROCEDU RES Final Result Performing Organization Address [facility] [[email or web address]] de Phone Number [facility] * Imaging Trigger Point INJ 3+ Muscle Groups (21752) (06/16/2023 11:25 AM CDT) Narrative [facility] - 06/16/2023 11:25 AM CDT The images from this study are not interpreted by Radiology. ??Please refer to the physician's procedure / OR operative note. Dayanna COLLAZO PAIN MGMT PROCEDU RES Final Result Performing Organization Address [facility] [[email or web address]] de Phone Number [facility] documented in this encounter Visit Diagnoses Diagnosis Intercostal neuralgia- Primary Other nerve root and plexus disorders Other myositis, other site Intercostal neuralgia- Primary Other nerve root and plexus disorders Other myositis, other site documented in this encounter Administered Medications Inactive Administered Medications - up to 3 most recent administrations Medication Order MAR Action Action Date Dose Rate Site BUPivacaine (MARCAINE) 0.25 % (2.5 mg/mL) preservative free injection As needed, Starting on Mon06/16/23 at 0856, Intra-Op Given 06/16/2023 8:56 AM CDT 7 mL documented in this encounter Historical Medications * This list may reflect changes made after this encounter. naproxen (ALEVE) 220 mg tablet Take 3 tablets (660 mg total) by mouth every 12 (twelve) hours as needed for pain testosterone cypionate (DEPO-TESTOTERON E) 200 mg/mL injection Inject 1 mL (200 mg total) into the muscle as instructed every 14 (fourteen) days 06/15/2023 added in this encounter Orders Discharge Count Last Ordered Date First Orde red Date DISCHARGE PATIENT 1 06/16/2023 documented in this encounter Care Teams Mobile Home Technician Relationship Specialty Start Date End Date Roxanna Moreno MD PCP - General 10/21/16 Dayanna Crump MD Consulting Physician Pain Management 01/30/23 documented as of this encounter
--- OUTSIDE RECORDS SUMMARY | 2024-08-03 14:53 | XMS_ITS | Encounter Summary ---
Author Organization [facility] Healthcare Address [facility] [place] [address] Care Team Providers Care Security Guard Name Role Phone Roxanna Moreno MD Primary Care Provider + Reason for Visit * Reason Comments Injections Encounter Details Date Type Department Care Team (Latest Contact Info) Description 09/27/2021 7:49 AM PLANNING OFFICIAL - 09/27/2021 11:59 PM PLANNING OFFICIAL Hospital Encounter [facility] [address] [facility] 1st [place] [id number] Dayanna Crump MD [address] [place] [address] Other myositis, other site (Primary Dx) Discharge Disposition: Discharge to home or self care Social History Tobacco Use Types Packs/Day Years Used Date Smoking Tobacco: Never Smokeless Tobacco: Former Quit: 05/2011 Alcohol Use Standard Drinks/Week Comments Yes 0 (1 standard drink = 0.6 oz pur e alcohol) RARE 3-4 q year Sex and Gender Information Value Date Recorded Sex Assigned at Not on file Legal Sex Male 1:57 AM PLANNING OFFICIAL Gender Identity Male 06/20/2021 2:35 PM PLANNING OFFICIAL Sexual Orientation Straight 06/20/2021 2: 35 PM PLANNING OFFICIAL documented as of this encounter Last Filed Vital Signs Vital Sign Reading Time Taken Comments Blood Pressure 131/96 09/27/2021 7:59 AM PLANNING OFFICIAL Pulse 94 09/27/2021 7:59 AM PLANNING OFFICIAL Temperature 36.7 ??C (98.1 ??F) 09/27/2021 7:59 AM CS T Respiratory Rate 18 09/27/2021 7:59 AM PLANNING OFFICIAL Oxygen Saturation 98% 09/27/2021 7:59 AM PLANNING OFFICIAL Inhaled Oxygen Concentration - - Weight - - Height - - Body Mass Index - - documented in this encounter Discharge Instructions * Patient Instructions* Sondra Cabrera RN - 09/27/2021 8:00 AM PLANNING OFFICIAL Trigger point injections done today. Plan: Intercostal nerve blocks in 8-10 weeks. NING OFFICIAL documented in this encounter Medications at Time [...] MG) BY MOUTH DAILY 30 capsule 2 07/26/2021 2 lidocaine (XYLOCAINE) 5 % ointment Apply topically 2 (two) times a day as needed for pain 35.44 g 5 08/21/2020 3 documented as of this encounter Discharge Disposition Disposition Code Departure Means Destination Discharge to home or self care documented in this encounter Progress Notes * Dayanna Crump MD - 09/27/2021 8:00 AM CST Progress Note Patient Name: Aleksandar Olsen : 1980 Today's Date: 09/27/2021 PCP: Roxanna Moreno MD Referring: Roxanna Moreno MD Interval History: Today 09/27/2021 SUBJECTIVE Chief complaint of Chief Complaint Patient presents with ??? Injections Patient is here today for trigger point injections. His last trigger point injections provided 70% improvement in pain During his last visit he had a right T7, T8, T9 intercostal nerve blocks for right chest wall with 50% to 60% improvement in pain. Of note, he also has chronic intermittent aching dull pain neck pain that radiates into his right shoulder. The pain is worse with rotatation of his head and better with rest. This has no changed since his last visit workup has been negative. Of note, he cannot have an MRI cervical spine because of his spinal cord stimulator. His pain regimen includes Lyrica, duloxetine, sertraline, TENS unit as well as OTC topicals (voltaren, lidocaine) which are well tolerated with benefit. Patient's Medications New Prescriptions No medications on file Previous Medications ATORVASTATIN (LIPITOR) 40 MG TABLET Take 40 mg by mouth daily Authorizing Provider: Fernanda Pompa MD Notes: -- DULOXETINE DR (CYMBALTA) 60 MG CAPSULE TAKE 1 CAPSULE(60 MG) BY MOUTH DAILY Authorizing Provider: Madina Husain POINT OF SALE ASSOCIATE Notes: ZERO refills remain on this prescription. Your patient is requesting advance approval of refills for this medication to PREVENT ANY MISSED DOSES HYDROCHLOROTHIAZIDE (MICROZIDE) 12.5 MG CAPSULE Take 12.5 [...] Review of Systems Musculoskeletal: Positive for back pain, myalgias and neck pain. OBJECTIVE Vitals: Most Recent : Vitals BP 131/96 Pulse 94 Temp 98.1 ??F (36.7 ??C) Resp 18 SpO2 98% Physical Exam: Physical Exam Pulmonary: Effort: Pulmonary effort is normal. Neurological: Mental Status: He is alert and oriented to person, place, and time. Labs/Radiology/Diagnostic Review: No recent results to review ASSESSMENT Mr. Aleksandar Olsen is a 41 y.o. male who presents with Problem List Items Addressed This Visit None Visit Diagnoses Other myositis, other site - Primary PLAN: 1. ??Intervention: Trigger point injections today Right T7, T8, T9 intercostal nerve block in 8-10 weeks TPI today in 4-6 weeks - Continue Medtronic SCS use for back and right chest pain. Pt uses high frequency setting intermittently. 2. ??Medications: ?a. Opioids: ??none indicated at this time. ?b. Adjuvants:??continue lidocaine cream, voltaren gel, duloxetine 60 mg daily, TENS unit?? -Continue Lyrica to 50 mg TID (higher doses make him drowsy). 3. ??Imaging: Previously had a CT cervical spine at [place] and images were previously reviewed. Report scanned into media tab, dated 08/10/2018. 4. ??Referral: ??He has participated in PT. Continue HEP ?? 5. ??Follow-up: Right T7, T8, T9 intercostal nerve block 09/27/2021 8:03 AM ?? NING OFFICIAL documented in this encounter Miscellaneous Notes * Op Note - Dayanna Crump MD - 09/27/2021 8:00 AM CST Patient ID Patient Name: Aleksandar Olsen : 1980 DOS: 09/27/2021 PCP: Roxanna Moreno MD Surgeon SURGEON: Dayanna Crump MD SUPERVISOR PUBLIC HEALTH NURSING SURGEON: None Diagnosis: back pain NAME OF [...] of injectate 0.25% Bupivacaine Total ml injected: 3 ml Total number of muscle groups: 2 INJECTION SITES: Splenius Capititis: [] Right [] Left Splenius Cervices: [x] Right [x] Left Masseter: [] Right [] Left Pterygoids Medial: [] Right [] Left Pterygoids Lateral: [] Right [] Left Sternocleidomastoid: [] Right [] Left Scalenus: [] Right [] Left Trapezius, Upper: [] Right [] Left Trapezius, Mid: [] Right [] Left Trapezius, Lower: [] Right [] Left Rhomboids: [] Right [] Left Levator [...] Resident involved on case Dayanna Crump MD 09/27/2021 8:28 AM NING OFFICIAL * Addendum Note - Sergo Laurent, RT - 09/27/2021 8:00 AM CSTEncounter addended by: Sergo Laurent RT on: 09/27/2021 12:03 PM Actions taken: Charge Capture section accepted, Procedure log completed NING OFFICIAL documented in this encounter Plan of Treatment Not on file documented as of this encounter Goals Goal Patient Goal Type Associated Problems Recent Progress Patient-Stated? Author CCM Chronic Pain Care Plan Chronic Care Management No change(07/21 7:32 AM PLANNING OFFICIAL) No Saran Quiñones, MABLE Note: Problem: Chronic Pain Goals: 1. Minimize further functional decline 2. Maximize quality of life 3. Control pain Strategies: - Activity/exercise program recommendation - Conservative stepwise pain medicine strategy with multi-disciplinary approach - Recommend healthy lifestyle strategies and compensatory methods as needed Reduce the likelihood of falling Lifestyle No change(07/21 7:32 AM PLANNING OFFICIAL) No Kenyatta Kaufman, MABLE Note: Below are [...] as of this encounter Visit Diagnoses Diagnosis Other myositis, other site- Primary documented in this encounter Administered Medications Inactive Administered Medications - up to 3 most recent administrations Medication Order MAR Action Action Date Dose Rate Site bupivacaine (MARCAINE) 0.25 % (2.5 mg/mL) preservative free injection As needed, Starting on Mon09/27/21 at 0820, Intra-Op Given 09/27/2021 8:20 AM PLANNING OFFICIAL 3 mL documented in this encounter Orders Discharge Count Last Ordered Date First Orde red Date DISCHARGE PATIENT 1 09/27/2021 documented in this encounter Care Teams Security Guard Relationship Specialty Start Date End Date Roxanna Moreno MD PCP - General 10/21/16 documented as of this encounter
--- OUTSIDE RECORDS SUMMARY | 2024-08-03 14:53 | XMS_ITS | Encounter Summary ---
Author Organization [facility] Healthcare Address [address] [place] [address] Care Team Providers Care Registered Nursing Professor Name Role Phone Roxanna Moreno MD Primary Care Provider + Reason for Visit * Reason Onset Date Comments Pre-procedure call 05/13/2021 Encounter Details Date Type Department Care Team (Late st Contact Info) Description 05/13/[address] [place] [address] Alisson Adan RN Pre-procedure call Social History Tobacco Use Types Packs/Day Years Used Date Smoking Tobacco: Never Smokeless Tobacco: Former Quit: 05/2011 Alcohol Use Standard Drinks/Week Comments Yes 0 (1 standard drink = 0.6 oz pur e alcohol) RARE 3-4 q year Sex and Gender Information Value Date Recorded Sex Assigned at Not on file Legal Sex Male 1:57 AM SOC ANALYST Gender Identity Male 06/20/2021 2:35 PM SOC ANALYST Sexual Orientation Straight 06/20/2021 2: 35 PM SOC ANALYST documented as of this encounter Miscellaneous Notes * Telephone Encounter - Alisson Adan RN - 05/13/2021 8:08 AM CDT Procedure Patients receiving steroid injection 1. Have you received the Covid-19 vaccine within the last 2 weeks? Yes [] No[x] 2. Do you plan to receive the Covid-19 vaccine in the next 2 weeks? Yes [] No [x] Patients should attempt to not have a Covid-19 vaccine 2 weeks prior to a steroid injection or 2 weeks after a steroid injection. At this time there is limited information regarding the impact to steroid injections on the efficacy of the Covid vaccine. Physician guidance recommends delaying steroidinjections when possible. documented in this encounter Plan of Treatment Not on file documented as of this encounter Goals Goal Patient Goal Type Associated Problems Recent Progress Patient-Stated? Author CCM Chronic Pain Care Plan Chronic Care Management No change(07/21 7:32 AM SOC ANALYST) No Saran Quiñones, RN Note: Problem: Chronic Pain Goals: 1. Minimize further functional decline 2. Maximize quality of life 3. Control pain Strategies: - Activity/exercise program recommendation - Conservative stepwise pain medicine strategy with multi-disciplinary approach - Recommend healthy lifestyle strategies and compensatory methods as needed Reduce the likelihood of falling Lifestyle No change(07/21 7:32 AM SOC ANALYST) No Kenyatta Kaufman RN Note: Below are four things you [...] on stairs Contact your local community or [facility] for information on exercise, fall prevention programs, or options for improving home safety. documented as of this encounter Visit Diagnoses Not on filedocumented in this encounter Care Teams Registered Nursing Professor Relationship Specialty Start Date End Date Roxanna Moreno MD PCP - General 10/21/16 documented as of this encounter
--- OUTSIDE RECORDS SUMMARY | 2024-08-03 14:53 | XMS_ITS | Encounter Summary ---
Author Organization [facility] Healthcare Address [address] [place] [address] Care Team Providers Care Key Bed Installer Name Role Phone Roxanna Moreno MD Primary Care Provider + Reason for Visit * Reason Onset Date Comments Pre Arrival 11/18/2021 Encounter Details Date Type Department Care Team (Late st Contact Info) Description 11/18/2021 Telephone [id number] [facility] 1st [place] [address] Helen Munson RN Pre Arrival Social History Tobacco Use Types Packs/Day Years Used Date Smoking Tobacco: Never Smokeless Tobacco: Former Quit: 05/2011 Alcohol Use Standard Drinks/Week Comments Yes 0 (1 standard drink = 0.6 oz pur e alcohol) RARE 3-4 q year Sex and Gender Information Value Date Recorded Sex Assigned at Not on file Legal Sex Male 1:57 AM AUGER PRESS OPERATOR Gender Identity Male 06/20/2021 2:35 PM AUGER PRESS OPERATOR Sexual Orientation Straight 06/20/2021 2: 35 PM AUGER PRESS OPERATOR documented as of this encounter Miscellaneous Notes * Telephone Encounter - Helen Munson RN - 11/18/2021 12:43 PM CDT Pre-procedure call completed documented in this encounter Plan of Treatment Not on file documented as of this encounter Goals Goal Patient Goal Type Associated Problems Recent Progress Patient-Stated? Author CCM Chronic Pain Care Plan Chronic Care Management No change(07/21 7:32 AM AUGER PRESS OPERATOR) No Saran Quiñones, MABLE Note: Problem: Chronic Pain Goals: 1. Minimize further functional decline 2. Maximize quality of life 3. Control pain Strategies: - Activity/exercise program recommendation - Conservative stepwise pain medicine strategy with multi-disciplinary approach - Recommend healthy lifestyle strategies and compensatory methods as needed Reduce the likelihood of falling Lifestyle No change(07/21 7:32 AM AUGER PRESS OPERATOR) No Kenyatta Kaufman, MABLE Note: Below are [...] on filedocumented in this encounter Care Teams Key Bed Installer Relationship Specialty Start Date End Date Roxanna Moreno MD PCP - General 10/21/16 documented as of this encounter
--- OUTSIDE RECORDS SUMMARY | 2024-08-03 14:53 | XMS_ITS | Encounter Summary ---
Author Organization [facility] Healthcare Address [address] [place] [address] Care Team Providers Care Composing Machine Operator/Tender Name Role Phone Roxanna Moreno MD Primary Care Provider + Reason for Referral * Diagnostic Imaging (Routine) - Closed Specialty Diagnoses / Procedures Referred By Rayne navarro Referred To Contact Diagnoses Mid back pain Procedures FL Fluoro Guided Needle Placement Dayanna Crump MD Phone: tel: fax: [place] [id number] [place] [address] Referral ID Status Reason Start Date Expiration Date Visits Re quested Visits Authorized [id number] Closed 05/05/2021 06/04/2022 1 1 Reason for Visit * Diagnostic Imaging (Routine) - Closed Specialty Diagnoses / Procedures Referred By Rayne navarro Referred To Contact Diagnoses Mid back pain Procedures FL Fluoro Guided Needle Placement Dayanna Crump MD Phone: tel: fax: [place] [address] [place] [address] Referral ID Status Reason Start Date Expiration Date Visits Re quested Visits Authorized [id number] Closed 05/05/2021 06/04/2022 1 1 Encounter Details Date Type Department Care Team (Latest Contact Info) Description 05/17/2021 7:34 AM CDT - 05/17/2021 11:59 PM CDT Hospital Encounter [facility] [address] [place] [address] Mid back pain Discharge Disposition: Discharge to [...] on file Legal Sex Male 1:57 AM SHAKE BACKBOARD NOTCHER Gender Identity Male 06/20/2021 2:35 PM SHAKE BACKBOARD NOTCHER Sexual Orientation Straight 06/20/2021 2: 35 PM SHAKE BACKBOARD NOTCHER documented as of this encounter Medications at Time of Discharge irbesartan (AVAPRO) 300 mg tabletIndication s:hypertension Take [...] gel APPLY 2 GMS TOPICALLY QID 04/26/2020 atorvastatin (LIPITOR) 20 mg tabletIndication s:hyperlipidemia Take 20 mg by mouth every morning 09/04/[address] (CYMBALTA) 60 mg capsule TAKE 1 CAPSULE(60 MG) BY MOUTH DAILY 30 capsule 2 05/03/2021 1 hydroCHLOROthiaz j[place] (HYDRODIURIL) 25 mg tabletIndication s:hypertension Take 25 mg by mouth every morning 2 01/18/2018 2 lidocaine (XYLOCAINE) 5 % ointment Apply [...] Chronic Care Management No change(07/21 7:32 AM SHAKE BACKBOARD NOTCHER) No Saran Quiñones, RN Note: Problem: Chronic Pain Goals: 1. Minimize further functional decline 2. Maximize quality of life 3. Control pain Strategies: - Activity/exercise program recommendation - Conservative stepwise pain medicine strategy with multi-disciplinary approach - Recommend healthy lifestyle strategies and compensatory methods as needed Reduce the likelihood of falling Lifestyle No change(07/21 7:32 AM SHAKE BACKBOARD NOTCHER) No Kenyatta Kaufman, MABLE Note: Below are [...] Procedure Name Priority Date/Time Associated Diagnosis Comments FLUORO GUIDED NEEDLE PLACEMENT Schedule Routine, Read Routine (OP Routine) 05/17/2021 8:22 AM CDT Mid back pain documented in this encounter Results * FL Fluoro Guided Needle Placement (05/17/2021 8:22 AM CDT) Narrative [facility] - 05/17/2021 9:01 AM CDT The images from this study are not interpreted by Radiology. ??Please refer to the physician's procedure / OR operative note. us Dayanna Crump MD IMG FLUOROSCOPY [employer] Final Result [facility] documented in this encounter Visit Diagnoses Diagnosis Mid back pain documented in this encounter Care Teams Composing Machine Operator/Tender Relationship Specialty Start Date End Date Roxanna Moreno MD PCP - General 10/21/16 documented as of this encounter
--- OUTSIDE RECORDS SUMMARY | 2024-08-03 14:53 | XMS_ITS | Encounter Summary ---
Author Organization [facility] Healthcare Address [address] [place] [address] Care Team Providers Care Electronic Court Recorder Name Role Phone Roxanna Moreno MD Primary Care Provider + Reason for Visit * Reason Comments Back Pain Encounter Details Date Type Department Care Team (Latest Contact Info) Description 08/23/2021 9:12 AM AUTOMOBILE SERVICE STATION MANAGER - 08/23/2021 9:42 AM AUTOMOBILE SERVICE STATION MANAGER Hospital Encounter [facility] [address] [facility] 1st [place] [id number] Dayanna Crump MD [address] [place] [address] Intercostal neuralgia (Primary Dx) Discharge Disposition: Discharge to home [...] on file Legal Sex Male 1:57 AM AUTOMOBILE SERVICE STATION MANAGER Gender Identity Male 06/20/2021 2:35 PM AUTOMOBILE SERVICE STATION MANAGER Sexual Orientation Straight 06/20/2021 2: 35 PM AUTOMOBILE SERVICE STATION MANAGER documented as of this encounter Last Filed Vital Signs Vital Sign Reading Time Taken Comments Blood Pressure 157/83 08/23/2021 10:59 AM AUTOMOBILE SERVICE STATION MANAGER Pulse 70 08/23/2021 10:59 AM AUTOMOBILE SERVICE STATION MANAGER Temperature 36.4 ??C (97.6 ??F) 08/23/2021 9:22 AM CS T Respiratory Rate 16 08/23/2021 10:59 AM AUTOMOBILE SERVICE STATION MANAGER Oxygen Saturation 99% 08/23/2021 10:59 AM AUTOMOBILE SERVICE STATION MANAGER Inhaled Oxygen Concentration - - Weight 121.6 kg (268 lb) 08/23/2021 9:22 AM AUTOMOBILE SERVICE STATION MANAGER Height 180.3 cm (5' 11 ) 08/23/2021 9:22 AM AUTOMOBILE SERVICE STATION MANAGER Body Mass Index 37.38 08/23/2021 9:22 AM AUTOMOBILE SERVICE STATION MANAGER documented in this encounter Discharge Instructions * Discharge Instructions* Edith Thomas RN - 08/23/2021 10:27 AM AUTOMOBILE SERVICE STATION MANAGER PAIN MANAGEMENT CENTER POST-PROCEDURE PATIENT EDUCATION The following procedure was performed in clinic today: Right T7, T8, T9 intercostal nerve block You have received two medications [...] within 24-48 hours. These side effects include: ??? Dizziness or light headedness upon standing. Change positions slowly. ??? Steroid Flushing of the face and chest that can last several days and be accompanied by a feeling of warmth or low grade increase in temperature. ??? Mild bruising, bleeding, or swelling at the injection site(s) ??? Mild weakness or numbness in the extremities ??? Anxiety, trouble sleeping ??? Increased blood sugars. Patients with diabetes should [...] complication, please notify the Pain Management Center. ??? Allergic Reaction ??? Extensive bleeding ??? Infection (may be indicated by a fever of 101o or greater, heat, redness, or drainage at the injection site) ??? Headache when sitting or standing that resolves when lying down ??? New loss of balance/difficulty walking ??? New loss of bowel or bladder control ??? Increasing muscle weakness or prolonged numbness in the extremities Please attempt to not have a Covid-19 vaccine 2 weeks prior to a steroid injection or 2 weeks aftera steroid injection. At this time there is limited information regarding the impact to steroid injections on the efficacy of the Covid vaccine. Physician guidance recommends delaying steroid injections when possible. PAIN MANAGEMENT CENTER DISCHARGE INFORMATION PLAN / NEW ORDERS: ??? Return in 4-6 weeks for trigger point injections [facility] at [facility] - [phone]. Calls are accepted Monday-Monday, 7:30am-4pm, excluding observed holidays. ??? We highly encourage the use of MyChart for non-urgent matters as well as prescription refill requests. ??? If you need to schedule an appointment with Dr. Goldberg - Pain Psychologist - [phone] ??? If you are scheduled for an MRI we [facility] with the [facility] Imaging Department and the physicians that read the images. In addition the images are of higher quality, and we receive the results quicker. If you choose to use an imaging location outside of [facility] and/or have [facility] [employer], please notify us immediately with a message on our nurse line or by sending a Superhuman message with the following: - Location - Location phone number - Date your MRI is scheduled - Please note that MRI authorizations may take up to 7-14 business days for determination. The Pain Management Center is committed to providing your medication refills in a timely manner. When submitting a refill request, please note the following guidelines: ??? Federal guidelines recommend patients with chronic pain, for whom opioid medications are prescribed, be evaluated at least once every three months or more frequently, as deemed appropriate by theprescribing provider. o Patients who are prescribed non-opioid medications should plan to be evaluated at least every 6 months or more frequently, as deemed appropriate by the prescribing provider. o To allow timely scheduling of evaluations, please contact the office to schedule your appointment4-6 weeks in advance. ??? For all opioid/narcotic prescription refills and non-opioid/non-narcotic refills with no refills remaining, please contact the Pain Management Center 5-7 days prior to the date of need. o Refills may be requested thru [employer] which is the preferred method for refill requests. o Call [phone] and leave a message on the RN Message Line with the following information: - Name, date of , and phone number - Name(s) of the medication(s) needing refill - Name and number for the pharmacy where the refill(s) should be sent o Please note, prescription refill dates are calculated based on the quantity of medication provided, not the date on which the pharmacy filled the prescription. [email or web address] We strive to provide you with EXCELLENT service as our patient. You may receive a survey after your visit today. If you can not rate your experience as EXCELLENT, please let us know how we can improve and better meet your needs. Thank you for choosing [facility] / Pain Management! MOBILE SERVICE STATION MANAGER documented in this encounter Medications at Time [...] Progress Notes * Dayanna Crump MD - 08/23/2021 9:30 AM CST Progress Note Patient Name: Aleksandar Olsen : 1980 Today's Date: 08/23/2021 PCP: Roxanna Moreno MD Referring: Roxanna Moreno MD Interval History: Today 08/23/2021 SUBJECTIVE Chief complaint of Chief Complaint Patient presents with ??? Back Pain Patient is here today for right T7, T8, T9 intercostal nerve blocks for right chest wall During his last visit, he had TPI with with 70% improvement in pain Of note, he cannot have an MRI [...] DAILY Authorizing Provider: Madina Husain NP Notes: ZERO refills remain on this prescription. [...] Medications No medications on file Discontinued Medications ATORVASTATIN (LIPITOR) 20 MG TABLET Take 20 mg by mouth every morning Authorizing Provider: Fernanda Pompa MD Notes: -- HYDROCHLOROTHIAZIDE (HYDRODIURIL) 25 MG TABLET Take 25 mg by mouth every morning Authorizing Provider: Fernanda Pompa MD Notes: -- IRBESARTAN (AVAPRO) 150 MG TABLET Take 300 mg by mouth daily Authorizing Provider: Fernanda Pompa MD Notes: -- ROS Review of Systems Musculoskeletal: Positive for back pain and neck pain. All other systems negative OBJECTIVE Vitals: Most Recent : Vitals BP 139/89 Pulse 79 Temp 97.6 ??F (36.4 ??C) Resp 16 Ht 180.3 cm (5' 11 ) Wt 121.6 kg (268 lb) SpO2 99% BMI 37.38 kg/m?? Physical Exam: Physical Exam Pulmonary: Effort: Pulmonary effort is normal. Neurological: Mental Status: He is alert and oriented to person, place, and time. Labs/Radiology/Diagnostic Review: No recent results to review ASSESSMENT Mr. Aleksandar Olsen is a 40 y.o. male who presents with Problem List Items Addressed This Visit Neuro Intercostal neuralgia - Primary PLAN: 1. ??Intervention: Right T7, T8, T9 intercostal nerve block today TPI today in 4-6 weeks - Continue Medtronic SCS use for back and right chest pain. Pt uses high frequency setting intermittently. 2. ??Medications: ?a. Opioids: ??none indicated at this time. ?b. Adjuvants:??continue lidocaine cream, voltaren gel, duloxetine 60 mg daily, TENS unit?? -Continue Lyrica to 50 mg TID (higher doses make him drowsy). 3. ??Imaging: Previously had a CT cervical spine at [place] and images were previously reviewed. Report scanned into media tab, dated 08/10/2018. 4. ??Referral: ??He has participated in PT. Continue HEP ?? 5. ??Follow-up: For TPI 08/23/2021 10:12 AM ?? MOBILE SERVICE STATION MANAGER documented in this encounter Miscellaneous Notes * Op Note - Dayanna Crump MD - 08/23/2021 9:30 AM CST Patient ID Patient Name: Aleksandar Olsen : 1980 DOS: 08/23/2021 PCP: Roxanna Moreno MD Surgeon SURGEON: Dayanna Crump MD CASH REGISTER SERVICER SURGEON: None Procedures NAME OF PROCEDURE: Intercostal nerve block at Right T7, T8 and T9, under Fluoroscopy. PRE-PROCEDURE DIAGNOSES: Intercostal Neuralgia. POST-PROCEDURE DIAGNOSES: same INDICATION FOR PROCEDURE: intercostal neuralgia INFORMED CONSTENT: After reviewing the procedure with the patient, informed consent to proceed withthe injection was obtained. A procedural permit was also signed. DESCRIPTION OF PROCEDURE: The patient was placed in the prone position on the fluoroscopy table. Fluoroscopy was used to identify the right T7, T8 and T9 level. The lumbar area was [...] AP fluoroscopic images. Radiographic contrast (Omnipaque 300) was injected (volume .75 ml.) There was spread of contrast along the inferior aspect of the rib. 3ml of a mixture of 0.25% bupivacine with depomedrol 40 mg was injected, resulting in dispersion of the previously injected contrast. The above procedure was repeated at right T7, T8 and T9 The procedure was well tolerated, and there were no apparent complications. Dr. Crump was present and participated in the entire procedure. DISPOSITION: Patient was discharged home instable condition. Operative Findings: None Estimated Blood Loss: None Intraoperative Fluids: None Specimens: None Blood/Blood Products Transfused: None No Resident involved on case Dayanna Crump MD 08/23/2021 10:54 AM MOBILE SERVICE STATION MANAGER * Addendum Note - Sondra Cabrera RN - 08/23/2021 9:30 AM CSTEncounter addended by: Sondra Cabrera RN on: 08/23/2021 11:10 AM Actions taken: E-signed After Visit Summary, Flowsheet accepted MOBILE SERVICE STATION MANAGER * Addendum Note - Sergo Laurent, RT - 08/23/2021 9:30 AM CSTEncounter addended by: Sergo Laurent RT on: 08/23/2021 4:29 PM Actions taken: Charge Capture section accepted MOBILE SERVICE STATION MANAGER documented in this encounter Plan of Treatment Not on file documented as of this encounter Goals Goal Patient Goal Type Associated Problems Recent Progress Patient-Stated? Author CCM Chronic Pain Care Plan Chronic Care Management No change(07/21 7:32 AM AUTOMOBILE SERVICE STATION MANAGER) No Saran Quiñones RN Note: Problem: Chronic Pain Goals: 1. Minimize further functional decline 2. Maximize quality of life 3. Control pain Strategies: - Activity/exercise program recommendation - Conservative stepwise pain medicine strategy with multi-disciplinary approach - Recommend healthy lifestyle strategies and compensatory methods as needed Reduce the likelihood of falling Lifestyle No change(07/21 7:32 AM AUTOMOBILE SERVICE STATION MANAGER) No Kenyatta Kaufman, MABLE Note: Below [...] as of this encounter Visit Diagnoses Diagnosis Intercostal neuralgia- Primary Other nerve root and plexus disorders documented in this encounter Administered Medications Inactive Administered Medications - up to 3 most recent administrations Medication Order MAR Action Action Date Dose Rate Site bupivacaine (MARCAINE) 0.25 % (2.5 mg/mL) preservative free injection As needed, Starting on Mon08/23/21 at 1045, Intra-Op Given 08/23/2021 10:45 AM AUTOMOBILE SERVICE STATION MANAGER 8 mL iohexoL (OMNIPAQUE) 300 mg iodine/mL injection solution As needed, Starting on Mon08/23/21 at 1044, Intra-Op Given 08/23/2021 10:44 AM AUTOMOBILE SERVICE STATION MANAGER 1.5 mL lidocaine PF (XYLOCAINE) 10 mg/mL (1 %) preservative free injection As needed, Starting on Mon08/23/21 at 1043, Intra-Op Given 08/23/2021 10:43 AM AUTOMOBILE SERVICE STATION MANAGER 6 mL methylPREDNISolone acetate (DEPO-medrol) injection As needed, Starting on Mon08/23/21 at 1045, Intra-Op Given 08/23/2021 10:45 AM AUTOMOBILE SERVICE STATION MANAGER 40 mg documented in this encounter Discontinued Medications Medication Sig Discontinue Reason Start Date End Da te atorvastatin (LIPITOR) 20 mg tabletIndications:hyperl ipidemia Take 20 mg by mouth every morning 09/04/2019 08/23/2021 hydroCHLOROthiazide (HYDRODIURIL) 25 mg tabletIndications:hypert ension Take 25 mg by mouth every morning 01/18/2018 08/23/2021 irbesartan (AVAPRO) 150 mg tablet Take 300 mg by mouth daily 07/23/2021 08/23/2021 documented as of this encounter Historical Medications * This list may reflect changes made after this encounter. hydroCHLOROthiazi de (MICROZIDE) 12.5 mg capsule Take 1 capsule (12.5 mg total) by mouth daily 07/23/2021 atorvastatin (LIPITOR) 40 mg tablet Take 1 tablet (40 mg total) by mouth daily 07/28/2021 irbesartan (AVAPRO) 150 mg tablet Take 300 mg by mouth daily 07/23/2021 08/23/2021 added in this encounter Orders Discharge Count Last Ordered Date First Orde red Date DISCHARGE PATIENT 1 08/23/2021 documented in this encounter Care Teams Electronic Court Recorder Relationship Specialty Start Date End Date Roxanna Moreno MD PCP - General 10/21/16 documented as of this encounter
--- OUTSIDE RECORDS SUMMARY | 2024-08-03 14:53 | XMS_ITS | Encounter Summary ---
Author Organization [facility] Healthcare Address [address] [place] [address] Care Team Providers Care Manager Clinic Name Role Phone Roxanna Moreno MD Primary Care Provider + Reason for Visit * Reason Comments Neck Pain Encounter Details Date Type Department Care Team (Latest Contact Info) Description 02/22/2021 7:42 AM CDT - 02/22/2021 7:47 AM CDT Hospital Encounter [facility] [address] [facility] 1st [place] [id number] Dayanna Crump MD [address] [facility] [address] [place] [address] Intercostal neuralgia (Primary Dx) Discharge Disposition: Discharge [...] on file Legal Sex Male 1:57 AM PUBLIC EMPLOYMENT MEDIATOR Gender Identity Male 06/20/2021 2:35 PM PUBLIC EMPLOYMENT MEDIATOR Sexual Orientation Straight 06/20/2021 2: 35 PM PUBLIC EMPLOYMENT MEDIATOR documented as of this encounter Last Filed Vital Signs Vital Sign Reading Time Taken Comments Blood Pressure 122/68 02/22/2021 8:35 AM CDT Pulse 98 02/22/2021 8:35 AM CDT Temperature 36.6 ??C (97.8 ??F) 02/22/2021 7:49 AM CD T Respiratory Rate 16 02/22/2021 7:49 AM CDT Oxygen Saturation 98% 02/22/2021 8:35 AM CDT Inhaled Oxygen Concentration - - Weight 117 kg (258 lb) 02/22/2021 7:49 AM CDT Height 180.3 cm (5' 11 ) 02/22/2021 7:49 AM CDT Body Mass Index 35.98 02/22/2021 7:49 AM CDT documented in this encounter Discharge Instructions * Discharge Instructions* Larissa Goncalves RN - 02/22/2021 8:37 AM CDT PAIN MANA[facility]EMENT C[facility] POST-PROCEDURE PATIENT EDUCATION The following procedure was performed in clinic today: TNB You have received two medications in your [...] Physician guidance recommends delaying steroid injections when possible.PA[facility] MANA[facility]EMENT CENTER DISCHARGE INFORMATION PLAN: ??? F/u in 6-8 weeks for TPI NEW ORDERS: ??? If you have any questions or concerns, please contact the Pain Management Center via [employer] or at [phone]. Calls are accepted Monday-Monday, 7:30am-4pm, excluding observed holidays. We highly encourage the use of [employer] for non- urgent matters as well as prescription refill requests. ??? Non-urgent matters: Select the nurse line option and leave a message ??? Urgent matters: Select the current patient scheduling option ??? Urgent/emergent matters occurring outside of business hours that cannot wait until the office opens: Call 911 or go to the nearest Emergency Room. The Pain Management Center is committed to [...] need. o Refills may be requested thru MyChart which is the preferred method for refill requests. o Call [phone] and leave a message on the RN [...] on which the pharmacy filled the prescription. Procedure Patients receiving steroid injection Please attempt to not have a Covid-19 vaccine 2 weeks prior to a steroid injection or 2 weeks aftera steroid injection. At this time there is limited information regarding the impact to steroid injections on the efficacy of the Covid vaccine. Physician guidance recommends delaying steroid injections when possible. [email or web address] documented in this encounter Medications at Time [...] CAPSULE(60 MG) BY MOUTH DAILY 30 capsule 1 01/04/2021 1 hydroCHLOROthiaz jamaica (HYDRODIURIL) 25 mg tabletIndication [...] Progress Notes * Dayanna Crump MD - 02/22/2021 8:00 AM CDT Progress Note Patient Name: Aleksandar Olsen : 1980 Today's Date: 02/22/2021 PCP: Roxanna Moreno MD Referring: Roxanna Moreno MD Interval History: Today 02/22/2021 SUBJECTIVE Chief complaint of Chief Complaint Patient presents with ??? Neck Pain Patient is here today for right T7, T8, T9 intercostal nerve blocks last injection provided 85% improvement in pain Trigger point injections.done 12/25/20 provided 50% benefit for 2 weeks. He feels that this is significant enough to continue this treatment Of note, he cannot have an MRI cervical spine because of his spinal cord stimulator. His pain regimen includes Lyrica, duloxetine, sertraline, TENS unit as well as OTC topicals (voltaren, lidocaine) which are well tolerated with benefit. Patient's Medications New Prescriptions No medications on file Previous Medications ATORVASTATIN (LIPITOR) 20 MG TABLET Take 20 mg by mouth every morning Authorizing Provider: Provider, MD Fernanda Notes: -- DULOXETINE DR (CYMBALTA) 60 MG CAPSULE TAKE 1 CAPSULE(60 MG) BY MOUTH DAILY Authorizing Provider: Madina Husain NP Notes: -- HYDROCHLOROTHIAZIDE (HYDRODIURIL) 25 MG TABLET [...] medications on file ROS Review of Systems Constitutional: Negative for chills and fever. Respiratory: Negative for shortness of breath. Musculoskeletal: Positive for back pain and neck pain. OBJECTIVE Vitals: Most Recent : Vitals BP 121/88 Pulse 79 Temp 97.8 ??F (36.6 ??C) Resp 16 Ht 180.3 cm (5' 11 ) Wt 117 kg (258 lb) SpO2 98% BMI 35.98 kg/m?? Physical Exam: Physical Exam Constitutional: Appearance: He is well-developed. Pulmonary: Effort: Pulmonary effort is normal. Neurological: Mental Status: He is alert and oriented to person, place, and time. Labs/Radiology/Diagnostic Review: No recent results to review ASSESSMENT Mr. Aleksandar Olsen is a 40 y.o. male who presents with Problem List Items Addressed This Visit None PLAN: 1. ??Intervention: Right T7, T8, T9 intercostal nerve block today trigger point injections in 4-6 weeks - Continue Medtronic SCS use for back and right chest pain. Pt uses high frequency setting intermittently. 2. ??Medications: ?a. Opioids: ??none indicated at this time. ?b. Adjuvants:??continue lidocaine cream, voltaren gel, duloxetine 60 mg daily, TENS unit?? -Continue Lyrica to 50 mg TID (higher doses make him drowsy). 3. ??Imaging: Previously had a CT cervical spine at [place] and images were previously reviewed. Report scanned into media tab, dated 08/10/2018. 4. ??Referral: ??He has participated in PT. Continue HEP ?? 5. ??Follow-up: For TPI in 4-8 weeks 02/22/2021 8:03 AM ?? documented in this encounter Miscellaneous Notes * Op Note - Dayanna Crump MD - 02/22/2021 8:00 AM CDT Patient ID Patient Name: Aleksandar Olsen : 1980 DOS: 02/22/2021 PCP: Roxanna Moreno MD Surgeon SURGEON: Dayanna Crump MD STAFF MINE WARFARE OFFICER SURGEON: None Procedures NAME OF PROCEDURE: Intercostal [...] Radiographic contrast (Omnipaque 300) was injected (volume 0.5 ml.) There was spread of [...] Resident involved on case Dayanna Crump MD 02/22/2021 8:34 AM documented in this encounter Plan of Treatment Not on file documented as of this encounter Goals Goal Patient Goal Type Associated Problems Recent Progress Patient-Stated? Author CCM Chronic Pain Care Plan Chronic Care Management No change(07/21 7:32 AM PUBLIC EMPLOYMENT MEDIATOR) No Saran Quiñones RN Note: Problem: Chronic Pain Goals: 1. Minimize further functional decline 2. Maximize quality of life 3. Control pain Strategies: - Activity/exercise program recommendation - Conservative stepwise pain medicine strategy with multi-disciplinary approach - Recommend healthy lifestyle strategies and compensatory methods as needed Reduce the likelihood of falling Lifestyle No change(07/21 7:32 AM PUBLIC EMPLOYMENT MEDIATOR) No Kenyatta Kaufman RN Note: Below are [...] preservative free injection As needed, Starting on Mon02/22/21 at 0831, Intra-Op Given 02/22/2021 8:31 AM CDT 8 mL iohexoL (OMNIPAQUE) 300 mg iodine/mL injection solution As needed, Starting on Mon02/22/21 at 0831, Intra-Op Given 02/22/2021 8:31 AM CDT 2 mL lidocaine PF (XYLOCAINE) 10 mg/mL (1 %) preservative free injection As needed, Starting on Mon02/22/21 at 0831, Intra-Op Given 02/22/2021 8:31 AM CDT 10 mL methylPREDNISolone acetate (DEPO-medrol) injection As needed, Starting on Mon02/22/21 at 0831, Intra-Op Given 02/22/2021 8:31 AM CDT 40 mg documented in this encounter Orders Discharge Count Last Ordered Date First Orde red Date DISCHARGE PATIENT 1 02/22/2021 documented in this encounter Care Teams Manager Clinic Relationship Specialty Start Date End Date Roxanna Moreno MD PCP - General 10/21/16 documented as of this encounter
--- OUTSIDE RECORDS SUMMARY | 2024-08-03 14:53 | XMS_ITS | Encounter Summary ---
Author Organization [facility] Healthcare Address [address] [place] [address] Care Team Providers Care Tread Tuber Machine Operator Name Role Phone Roxanna Moreno MD Primary Care Provider + Reason for Referral * Diagnostic Imaging (Routine) - Closed Specialty Diagnoses / Procedures Referred By Rayne navarro Referred To Contact Diagnoses Mid back pain Procedures FL Fluoro Guided Needle Placement Dayanna Crump MD Phone: tel: fax: [place] [id number] [place] [address] Referral ID Status Reason Start Date Expiration Date Visits Re quested Visits Authorized [id number] Closed 08/03/2021 09/02/2022 1 1 GER HEMATOLOGY Reason for Visit * Diagnostic Imaging (Routine) - Closed Specialty Diagnoses / Procedures Referred By Rayne navarro Referred To Contact Diagnoses Mid back pain Procedures FL Fluoro Guided Needle Placement Dayanna Crump MD Phone: tel: fax: [place] [id number] [place] [address] Referral ID Status Reason Start Date Expiration Date Visits Re quested Visits Authorized [id number] Closed 08/03/2021 09/02/2022 1 1 Encounter Details Date Type Department Care Team (Latest Contact Info) Description 08/23/2021 9:43 AM MANAGER HEMATOLOGY - 08/23/2021 11:59 PM MANAGER HEMATOLOGY Hospital Encounter [facility] at [place] [id number] [place] [address] Mid back pain Discharge Disposition: Discharge to [...] on file Legal Sex Male 1:57 AM MANAGER HEMATOLOGY Gender Identity Male 06/20/2021 2:35 PM MANAGER HEMATOLOGY Sexual Orientation Straight 06/20/2021 2: 35 PM MANAGER HEMATOLOGY documented as of this encounter Medications at [...] Chronic Care Management No change(07/21 7:32 AM MANAGER HEMATOLOGY) No Saran Quiñones, RN Note: Problem: Chronic Pain Goals: 1. Minimize further functional decline 2. Maximize quality of life 3. Control pain Strategies: - Activity/exercise program recommendation - Conservative stepwise pain medicine strategy with multi-disciplinary approach - Recommend healthy lifestyle strategies and compensatory methods as needed Reduce the likelihood of falling Lifestyle No change(07/21 7:32 AM MANAGER HEMATOLOGY) No Kenyatta Kaufman, MABLE Note: Below are [...] on stairs Contact your local community or [facility] for information on exercise, fall prevention programs, or options for improving home safety. documented as of this encounter Procedures Procedure Name Priority Date/Time Associated Diagnosis Comments FLUORO GUIDED NEEDLE PLACEMENT Schedule Routine, Read Routine (OP Routine) 08/23/2021 10:49 AM MANAGER HEMATOLOGY Mid back pain documented in this encounter Results * FL Fluoro Guided Needle Placement (08/23/2021 10:49 AM MANAGER HEMATOLOGY) Narrative [facility] - 08/23/2021 4:28 PM MANAGER HEMATOLOGY The images from this study are not interpreted by Radiology. ??Please refer to the physician's procedure / OR operative note. us Dayanna Crump MD IMG FLUOROSCOPY [employer] Final Result [facility] documented in this encounter Visit Diagnoses Diagnosis Mid back pain documented in this encounter Care Teams Tread Tuber Machine Operator Relationship Specialty Start Date End Date Roxanna Moreno MD PCP - General 10/21/16 documented as of this encounter
--- OUTSIDE RECORDS SUMMARY | 2024-08-03 14:53 | XMS_ITS | Encounter Summary ---
Author Organization [facility] Healthcare Address [address] [place] [address] Care Team Providers Care Microbiology Technician Name Role Phone Roxanna Moreno MD Primary Care Provider + Reason for Visit * Reason Onset Date Comments Pre-procedure call 08/19/2021 Encounter Details Date Type Department Care Team (Late st Contact Info) Description 08/19/2021 Telephone [place] [id number] [facility] 1st [place] [address] Alisson Adan RN Pre-procedure call Social History Tobacco Use Types Packs/Day Years Used Date Smoking Tobacco: Never Smokeless Tobacco: Former Quit: 05/2011 Alcohol Use Standard Drinks/Week Comments Yes 0 (1 standard drink = 0.6 oz pur e alcohol) RARE 3-4 q year Sex and Gender Information Value Date Recorded Sex Assigned at Not on file Legal Sex Male 1:57 AM DIALS INSPECTOR Gender Identity Male 06/20/2021 2:35 PM DIALS INSPECTOR Sexual Orientation Straight 06/20/2021 2: 35 PM DIALS INSPECTOR documented as of this encounter Miscellaneous Notes * Telephone Encounter - Alisson Adan RN - 08/19/2021 8:26 AM CST Voicemail message left with the following information: ??? Procedure Date, Time, Location ??? Arrival 15 minutes prior to appointment ??? Discharge transportation is needed ??? Oral intake: [x] Able to eat, drink, and take medications as normal. [] No solid food for 6 hours; No liquids for 3 hours; Take medications with sips of water. ??? Blood thinner: [x] Notify the office immediately if taking a new blood thinner [] Notify the office immediately if blood thinner: was not stopped on date: ??? Notify the office immediately if: a. In the last 10 days have you had any respiratory symptoms including cough, shortness of breath/trouble breathing, fever, sudden loss of taste or smell, sore throat, or body aches? b. Any antibiotics in the last 7 days? c. Have received a Covid-19 vaccine in the last 2 weeks or plan to receive a Covid-19 vaccine in the next 2 weeks? d. Are currently being tested for Covid-19? e. Have tested positive for Covid-19 within the last 14 days? f. Have had close contact with anyone confirmed or suspected Covid-19 in the past 2 weeks? Procedure Patients receiving steroid injection 1. Have you received the Covid-19 vaccine within the last 2 weeks? Yes [] No[] 2. Do you plan to receive the Covid-19 vaccine in the next 2 weeks? Yes [] No [] Patients should attempt to not have a Covid-19 vaccine 2 weeks prior to a steroid injection or 2 weeks after a steroid injection. At this time there is limited information regarding the impact to steroid injections on the efficacy of the Covid vaccine. Physician guidance recommends delaying steroidinjections when possible. S INSPECTOR documented in this encounter Plan of Treatment Not on file documented as of this encounter Goals Goal Patient Goal Type Associated Problems Recent Progress Patient-Stated? Author CCM Chronic Pain Care Plan Chronic Care Management No change(07/21 7:32 AM DIALS INSPECTOR) No Saran Quiñones, MABLE Note: Problem: Chronic Pain Goals: 1. Minimize further functional decline 2. Maximize quality of life 3. Control pain Strategies: - Activity/exercise program recommendation - Conservative stepwise pain medicine strategy with multi-disciplinary approach - Recommend healthy lifestyle strategies and compensatory methods as needed Reduce the likelihood of falling Lifestyle No change(07/21 7:32 AM DIALS INSPECTOR) No Kenyatta Kaufman, MABLE Note: Below [...] on stairs Contact your local community or [facility] for information on exercise, fall prevention programs, or options for improving home safety. documented as of this encounter Visit Diagnoses Not on filedocumented in this encounter Care Teams Microbiology Technician Relationship Specialty Start Date End Date Roxanna Moreno MD PCP - General 10/21/16 documented as of this encounter
--- OUTSIDE RECORDS SUMMARY | 2024-08-03 14:53 | XMS_ITS | Encounter Summary ---
Author Organization [facility] Healthcare Address [address] [place] [address] Care Team Providers Care Molding Technician Name Role Phone Roxanna Moreno MD Primary Care Provider + Dayanna Crump MD Unavailable [phone] Reason for Visit * Reason Onset Date Comments Pre Arrival 02/18/2021 Encounter Details Date Type Department Care Team (Late st Contact Info) Description 02/18/2021 Telephone [facility] [place] [id number] [facility] 1st [place] [address] Larissa Goncalves, MABLE Pre Arrival Social History Tobacco Use Types Packs/Day Years Used Date Smoking Tobacco: Never Smokeless Tobacco: Former Quit: 05/2011 Alcohol Use Standard Drinks/Week Comments Yes 0 (1 standard drink = 0.6 oz pur e alcohol) RARE 3-4 q year Sex and Gender Information Value Date Recorded Sex Assigned at Not on file Legal Sex Male 1:57 AM MANAGER OF PRODUCTION Gender Identity Male 06/20/2021 2:35 PM MANAGER OF PRODUCTION Sexual Orientation Straight 06/20/2021 2: 35 PM MANAGER OF PRODUCTION documented as of this encounter Plan of Treatment Not on file documented as of this encounter Goals Goal Patient Goal Type Associated Problems Recent Progress Patient-Stated? Author [facility] Chronic Pain Care Plan Chronic Care Management No change(07/21 7:32 AM MANAGER OF PRODUCTION) No Saran Quiñones, RN Note: Problem: Chronic Pain Goals: 1. Minimize further functional decline 2. Maximize quality of life 3. Control pain Strategies: - Activity/exercise program recommendation - Conservative stepwise pain medicine strategy with multi-disciplinary approach - Recommend healthy lifestyle strategies and compensatory methods as needed Reduce the likelihood of falling Lifestyle No change(07/21 7:32 AM MANAGER OF PRODUCTION) Kenyatta Carlton RN Note: Below are four [...] stairs Contact your local community or [facility] for information on exercise, fall prevention programs, or options for improving home safety. documented as of this encounter Visit Diagnoses Not on filedocumented in this encounter Care Teams Molding Technician Relationship Specialty Start Date End Date Roxanna Moreno MD PCP - General 10/21/16 Dayanna Crump MD Consulting Physician Pain Management 01/30/23 documented as of this encounter
--- OUTSIDE RECORDS SUMMARY | 2024-08-03 14:53 | XMS_ITS | Encounter Summary ---
Author Organization [facility] Healthcare Address [address] [place] [id number] Care Team Providers Care Coach Cleaner Name Role Phone Roxanna Moreno MD Primary Care Provider + Reason for Visit * Reason Comments Back Pain Neck Pain Procedure Encounter Details Date Type Department Care Team (Latest Contact Info) Description 01/31/2022 9:25 AM CDT - 01/31/2022 11:59 PM CDT Hospital En[facility] [address] 1st [place] [id number] Cyrus Hameed MD [address] [place] [id number] Cervicalgia (Primary Dx); 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); Muscle spasm; Post-thoracotomy pain Discharge Disposition: Discharge to home or [...] on file Legal Sex Male 1:57 AM INSURANCE VERIFICATION REP Gender Identity Male 06/20/2021 2:35 PM INSURANCE VERIFICATION REP Sexual Orientation Straight 06/20/2021 2: 35 PM INSURANCE VERIFICATION REP documented as of this encounter Last Filed Vital Signs Vital Sign Reading Time Taken Comments Blood Pressure 149/106 01/31/2022 9:40 AM CDT Pulse 75 01/31/2022 9:40 AM CDT Temperature 36.7 ??C (98 ??F) 01/31/2022 9:40 AM CDT Respiratory Rate 18 01/31/2022 9:40 AM CDT Oxygen Saturation 93% 01/31/2022 9:40 AM CDT Inhaled Oxygen Concentration - - Weight - - Height - - Body Mass Index - - documented in this encounter Discharge Instructions * Patient Instructions* Lupe Awan RN - 01/31/2022 10:04 AM CDT [facility] POST-PROCEDURE PATIENT EDUCATION The following procedure was performed in clinic today: Trigger Point Injection This procedure is generally well tolerated; however, some patients may experience side effects. Most resolve within an hour of the procedure but may re-occur within 24-48 hours. These side effects include: Dizziness or light headedness upon standing; change positions slowly Numbness or weakness in the extremities Mild bruising, bleeding, or swelling at the injection site(s) Increased pain, soreness, and/or aching may occur [...] 24 hours. You may shower for bathing. Limit activity today. No driving today. You may resume your normal activity, including driving, in the morning. Serious complications are rare, but are possible. If you experience ANY of the following, please call 911 or go to the nearest Emergency Department. Emergency staff should be made aware of your procedure. After receiving care for your complication, please notify the Pain Management Center. Allergic Reaction Difficulty breathing Extensive bleeding Infection (may be indicated by a fever of 101o or greater, heat, redness, or drainage at the injection site) New loss of balance/difficulty walking New loss of bowel or bladder control Increasing muscle weakness or prolonged numbness in the extremities Follow up in 3 months documented in this encounter Medications at Time [...] MG) BY MOUTH DAILY 30 capsule 2 11/22/2021 2 lidocaine (XYLOCAINE) 5 % ointment Apply topically 2 (two) times a day as needed for pain 35.44 g 5 08/21/2020 3 documented as of this encounter Discharge Disposition Disposition Code Departure Means Destination Discharge to home or self care documented in this encounter Progress Notes * Eleaazr Andres MD PhD - 01/31/2022 9:30 AM CDT Progress Note Patient Name: Aleksandar Olsen : 1980 Today's Date: 01/31/2022 PCP: Roxanna Moreno MD Referring: Roxanna Moreno MD Interval History: Today 01/31/[address] Oladapo's patient, she is on maternity leave. SUBJECTIVE Chief complaint of Chief Complaint Patient presents with ??? Back Pain ??? Neck Pain ??? Procedure Patient is here today for follow up regarding right sided thoracic back pain and bilateral neck pain. At his last visit, he had T7-9 intercostal nerve blocks which provided about 50-75% relief similar to prior injections and allowed him to be more active with less pain. Pain Assessment Pain Score: 5 - Moderate pain Pain Location: Neck Pain Radiating Towards: neck and back Pain Descriptors: Aching Pain Frequency: Positional Pain Onset: Ongoing Clinical Progression: Not changed Patient's Stated Pain Goal: No pain His worst pain is in the mid thoracic back at the paraspinal muscles. ROM increase this pain, pain is not radiating. His pain regimen includes Lyrica, duloxetine, sertraline, [...] CAPSULE(60 MG) BY MOUTH DAILY Authorizing Provider: Catarina Ramirez MD Notes: -- HYDROCHLOROTHIAZIDE (MICROZIDE) 12.5 MG CAPSULE [...] Vitals: Most Recent : Vitals BP (!) 149/106 Pulse 75 Temp 98 ??F (36.7 ??C) Resp 18 SpO2 93% Physical Exam: Neck: Johnny paraspinal muscle spasm with tender points, painful rotations Pulmonary: Effort: Pulmonary effort is normal. Musculoskeletal: Comments: Right thoracic paraspinal muscle spasm; moderate tenderness right side worse. Upper and mid trapezius muscle spasm. SCS pocket no tenderness. Skin: General: Skin is warm and dry. Neurological: Mental Status: He is alert and oriented to person, place, and time. Labs/Radiology/Diagnostic Review: No recent results to review ASSESSMENT Mr. Aleksandar Olsen is a 41 y.o. 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 ??Intervention: - Right T7, T8, and T9 intercostal block PRN - TPI In neck and thoracic back today - Continue Medtronic SCS use for back and right chest pain. Pt uses high frequency setting intermittently. 2. ??Medications: ?a. Opioids: ??none indicated at this time. ?b. Adjuvants:??continue lidocaine cream, voltaren gel, duloxetine 60 mg daily, TENS unit?? -Continue Lyrica 50 mg TID (higher doses make him drowsy). 3. ??Imaging: Previously had a CT cervical spine at [place] and images were previously reviewed. Report scanned into media tab, dated 08/10/2018. 4. ??Referral: ??He has participated in PT. Continue HEP ?? 5. ??Follow-up: Repeat intercostal nerve block in 3 months Eleazar Andres MD PhD Fellow, Pain Management 01/31/22 Attending: I provided this service on 01/31/2022 I saw and examed the patient by myself. I reviewed patient's chart, labs and image/result. I have reviewed the above evaluation and treatment plan with Trainee Physician . I agree with the evaluation and treatment plan as above. Cyrus Hameed MD, SHIRLEY Professor of Anesthesiology Director of Pain Medicine [facility] Department of Anesthesiology and Pain 11:08 AM 01/31/2022 ?? Cosigned by Cyrus Hameed MD at 01/31/2022 11:11 AM CDT documented in this encounter Miscellaneous Notes * Op Note - Eleazar Andres MD PhD - 01/31/2022 9:30 AM CDT Procedure Note: Trigger point injections Attending Surgeon: Cyrus Hameed MD, SHIRLEY Debridging Machine Operator: Eleazar Andres MD PhD Date of Surgery: 01/31/22 01/31/2022 PA[facility] TRIGGER POINT INJECTION PROCEDURE NOTE CHECK THE APPROPRIATE BOX AND FILL IN THE BLANK(S) NEEDED PRE-PROCEDURE CHECK LIST: SAFETY PRE-TREATMENT CHECKLIST COMPLETED Check the appropriate box [x] Patient Identification Verified [x] Consent Obtained [x] Relevant Images Obtained [x] H&P/Pre-Procedure Note Completed Pre-Procedure Time Out: Verbal agreement among all involved that the patient, procedure, position, injection sites/sides, relevant image labels/orientation, instruments/implants for the planned procedure are available and correct. Physician: * No surgeons listed * Pre-procedure Diagnosis: Chronic Neck Pain, Chronic Back Pain, Spinal Enthesopathy multiple sites, Muscle spasm Post-procedure Diagnosis; the same. PROCEDURE NOTE: Procedure Note: After interview and physical exam, with identification of injection sites, the risks (including long-lasting muscle weakness) and benefits were discussed and consent was obtained. Each site was marked, then prepped with an alcohol prep pad. Using a 27 gauge, 1 ?? inch needle, and no-touch technique, the center of the injection site was located where 0.5-2 ml of local anesthetic was infused.. INJECTATE: INDICATE AGENT USED AND TOTAL INJECTIONS AND MLS IN APPROPRIATE COLUMN. [] 1% Lidocaine (1 ml) PF NS (9 ml) Atracurium (.2ml=2mg) [] 1:1 1% Lidocaine: 0.5% Bupivacaine [] Dry Needle [x] 0.5% Bupivacaine [] 1% Lidocaine [] Other : Total ml Injected : 20 Total # of Muscles Injected : 5 INJECTION SITES: Site R L Site R L Site R L Splenius Capitis [] [] Teres Major/Minor [] [] Iliopsoas [] [] Splenius Cervices [x] [x] Quadrates Lumborum [] [] Procerus [] [] Masseter [] [] Paravertebral, Cervical [x] [x] Corrugators [] [] Pterygoids Medial [] [] Paravertebral, Thoracic [x] [] Frontalis [] [] Pterygoids Lateral [] [] Paravertebral, Lumbar [] [] Temporalis [] [] Sternocleidomastoid [] [] Gluteus Americo [] [] Occipitalis [] [] Scalenus [] [] Gluteus Medius [] [] Cervical Paraspinal [] [] Rhomboids [] [] Gluteus Minimus [] [] Trapezius, Upper [x] [x] Levator Scapulae [] [] Tensor Fasciae Latae [] [] Trapezius, Mid [x] [x] Pectoralis Minor [] [] Vastus Lateralis [] [] Trapezius, Lower [] [] Pectoralis Major [] [] Adductor Eliel [] [] Pyriformis [] [] Serratus Anterior [] [] Adductor Longus [] [] Other: [] [] Operative Findings: None Estimated Blood Loss: None Intraoperative Fluids: None Specimens: None Blood/Blood Products Transfused: None Complications: None I was present for and participated in the entire procedure described above. Cyrus Hameed MD, SHIRLEY Professor of Anesthesiology Director of Pain Medicine [facility] Department of Anesthesiology and Pain Cosigned by Cyrus Hameed MD at 01/31/2022 11:11 AM CDT documented in this encounter Plan of Treatment Not on file documented as of this encounter Goals Goal Patient Goal Type Associated Problems Recent Progress Patient-Stated? Author CCM Chronic Pain Care Plan Chronic Care Management No change(07/21 7:32 AM INSURANCE VERIFICATION REP) No Saran Quiñones, RN Note: Problem: Chronic Pain Goals: 1. Minimize further functional decline 2. Maximize quality of life 3. Control pain Strategies: - Activity/exercise program recommendation - Conservative stepwise pain medicine strategy with multi-disciplinary approach - Recommend healthy lifestyle strategies and compensatory methods as needed Reduce the likelihood of falling Lifestyle No change(07/21 7:32 AM INSURANCE VERIFICATION REP) No Kenyatta Kaufman, MABLE Note: Below are [...] on stairs Contact your local community or [facility] for information on exercise, fall prevention programs, or options for improving home safety. documented as of this encounter Visit Diagnoses Diagnosis Cervicalgia- Primary Spinal enthesopathy of cervicothoracic region (HCC) Muscle spasm Spasm of muscle Post-thoracotomy pain Acute post-thoracotomy pain documented in this encounter Administered Medications Inactive Administered Medications - up to 3 most recent administrations Medication Order MAR Action Action Date Dose Rate Site bupivacaine HCl (MARCAINE) 0.5 % (5 mg/mL) injection As needed, Starting on 01/31/22 at 0959, Intra-Op Given 01/31/2022 9:59 AM CDT 20 mL documented in this encounter Orders Discharge Count Last Ordered Date First Orde red Date DISCHARGE PATIENT 1 01/31/2022 documented in this encounter Care Teams Coach Cleaner Relationship Specialty Start Date End Date Roxanna Moreno MD PCP - General 10/21/16 documented as of this encounter
--- OUTSIDE RECORDS SUMMARY | 2024-08-03 14:53 | XMS_ITS | Encounter Summary ---
Author Organization [facility] Healthcare Address [address] [place] [address] Care Team Providers Care Desktop Operator Name Role Phone Roxanna Moreno MD Primary Care Provider + Reason for Visit * Reason Comments Neck Pain Encounter Details Date Type Department Care Team (Latest Contact Info) Description 04/14/2021 8:49 AM CDT - 04/14/2021 11:59 PM CDT Hospital Encounter [facility] [address] [facility] 1st [place] [phone] Dayanna Crump MD [address] [facility] [address] [place] [address] Chronic low back pain without sciatica, unspecified back pain laterality (Primary Dx) Discharge Disposition: Discharge to home [...] on file Legal Sex Male 1:57 AM WEB CONTENT & SOCIAL MEDIA MANAGER Gender Identity Male 06/20/2021 2:35 PM WEB CONTENT & SOCIAL MEDIA MANAGER Sexual Orientation Straight 06/20/2021 2: 35 PM WEB CONTENT & SOCIAL MEDIA MANAGER documented as of this encounter Last Filed Vital Signs Vital Sign Reading Time Taken Comments Blood Pressure 136/93 04/14/2021 8:56 AM CDT Pulse 71 04/14/2021 8:56 AM CDT Temperature 36.4 ??C (97.5 ??F) 04/14/2021 8:56 AM CD T Respiratory Rate 20 04/14/2021 8:56 AM CDT Oxygen Saturation 97% 04/14/2021 8:56 AM CDT Inhaled Oxygen Concentration - - Weight 117.9 kg (260 lb) 04/14/2021 8:56 AM CDT Height - - Body Mass Index 36.26 02/22/2021 7:49 AM CDT documented in this encounter Discharge Instructions * Discharge Instructions* Edith Thomas RN - 04/14/2021 9:30 AM CDT PAIN [facility]EMENT C[facility] PATIENT EDUCATION TRIGGER POINT INJECTION POST-PROCEDURE INFORMATION SHEET The following symptoms may occur following this procedure and are considered normal. Most symptoms resolve within an hour of the procedure, but may re-occur over the next 24 hours. ??? Dizziness or light headedness upon standing. (Stand slowly form sitting or lying position today.) ??? Slight weakness or numbness in arms or legs. ??? Increased pain or soreness or achiness at the injection site. ??? Assistance with walking may be needed. You [...] Serious complications are rare, but could include: ??? Allergic Reaction ??? Bleeding ??? Infection indicated but not limited to fever over 101, redness or drainage at the injection site ??? Loss of balance/difficulty walking ??? Increasing muscle weakness or prolonged numbness in the arms or legs. ??? Difficulty breathing, shortness of breath If you experience ANY of the above serious symptoms, Call 911 and go to the Emergency Department Notify Pain Management Center AFTER receiving care for the symptoms. PA[facility]EMENT [facility]ENTER DISCHARGE INFORMATION PLAN: ??? 4-8 weeks intercostal nerve block If you have any questions or concerns, please contact the Pain Management Center via [facility] or at [phone]. Calls are accepted Monday-Monday, 7:30am-4pm, excluding observed holidays. We highly encourage the use of [facility] for non- urgent matters as well as [...] preferred method for refill requests. o Call [phone] and leave a message on the RN [...] guidance recommends delaying steroid injections when possible. [email or web address] documented in this encounter Medications at Time [...] MG) BY MOUTH DAILY 30 capsule 2 03/04/2021 1 hydroCHLOROthiaz jamaica (HYDRODIURIL) 25 mg tabletIndication [...] Progress Notes * Dayanna Crump MD - 04/14/2021 9:00 AM CDT Progress Note Patient Name: Aleksandar Olsen : 1980 Today's Date: 04/14/2021 PCP: Roxanna Moreno MD Referring: Roxanna Moreno MD Interval History: Today 04/14/2021 SUBJECTIVE Chief complaint of Chief Complaint Patient presents with ??? Neck Pain Patient is here today for TPI. Trigger point injections.done 12/25/20 provided 50% benefit for 2 weeks. He reports 75-80% improvement in pain from the right T7, T8, T9 intercostal nerve blocks last injection performed 6 weeks ago. Of note, he cannot have an MRI [...] OBJECTIVE Vitals: Most Recent : Vitals BP 136/93 Pulse 71 Temp 97.5 ??F (36.4 ??C) Resp 20 Wt 117.9 kg (260 lb) SpO2 97% BMI 36.26 kg/m?? Physical Exam: Physical Exam Constitutional: Appearance: He is well-developed. Pulmonary: Effort: Pulmonary effort is normal. Neurological: Mental Status: He is alert and oriented to person, place, and time. Labs/Radiology/Diagnostic Review: No recent results to review ASSESSMENT Mr. Aleksandar Olsen is a 40 y.o. male who presents with Problem List Items Addressed This Visit Musculoskeletal and Injuries Back pain - Primary PLAN: 1. ??Intervention: trigger point injections today Right T7, T8, T9 intercostal nerve block in 4-6 weeks - Continue Medtronic SCS use for back and right chest pain. Pt uses high frequency setting intermittently. 2. ??Medications: ?a. Opioids: ??none indicated at this time. ?b. Adjuvants:??continue lidocaine cream, voltaren gel, duloxetine 60 mg daily, TENS unit?? -Continue Lyrica to 50 mg TID (higher doses make him drowsy). 3. ??Imaging: Previously had a CT cervical spine at [place] and images were previously reviewed. Report scanned into media tab, dated 08/10/2018. 4. ??Referral: ??He has participated in PT. Continue HEP ?? 5. ??Follow-up: Right T7, T8, T9 intercostal nerve block in 4-6 weeks 04/14/2021 9:04 AM ?? documented in this encounter Miscellaneous Notes * Op Note - Dayanna Crump MD - 04/14/2021 9:00 AM CDT Patient ID Patient Name: Aleksandar Olsen : 1980 DOS: 04/14/2021 PCP: Roxanna Moreno MD Surgeon SURGEON: Dayanna Crump MD SYSTEM SUPPORT SPECIALIST SURGEON: None Diagnosis: thoracic back pain and Neck Pain NAME OF PROCEDURE: Trigger Point Injections PRE-PROCEDURE [...] of injectate 0.25% Bupivacaine Total ml injected: 5 ml Total number of muscle groups: 2 [...] Resident involved on case Dayanna Crump MD 04/14/2021 9:29 AM * Addendum Note - Sharonda Munson, RN - 04/14/2021 9:00 AM CDTEncounter addended by: Sharonda Munson RN on: 04/14/2021 10:24 AM Actions taken: Specialty comments modified documented in this encounter Plan of Treatment Not on file documented as of this encounter Goals Goal Patient Goal Type Associated Problems Recent Progress Patient-Stated? Author CCM Chronic Pain Care Plan Chronic Care Management No change(07/21 7:32 AM WEB CONTENT & SOCIAL MEDIA MANAGER) No Saran Quiñones, RN Note: Problem: Chronic Pain Goals: 1. Minimize further functional decline 2. Maximize quality of life 3. Control pain Strategies: - Activity/exercise program recommendation - Conservative stepwise pain medicine strategy with multi-disciplinary approach - Recommend healthy lifestyle strategies and compensatory methods as needed Reduce the likelihood of falling Lifestyle No change(07/21 7:32 AM WEB CONTENT & SOCIAL MEDIA MANAGER) No Kenyatta Kaufman, MABLE Note: Below [...] as of this encounter Visit Diagnoses Diagnosis Chronic low back pain without sciatica, unspecified back pain laterality- Primary documented in this encounter Administered Medications Inactive Administered Medications - up to 3 most recent administrations Medication Order MAR Action Action Date Dose Rate Site bupivacaine (MARCAINE) 0.25 % (2.5 mg/mL) preservative free injection As needed, Starting on 9/1/21 at 0927, Intra-Op Given 04/14/2021 9:27 AM CDT 5 mL documented in this encounter Orders Discharge Count Last Ordered Date First Orde red Date DISCHARGE PATIENT 1 04/14/2021 documented in this encounter Care Teams Desktop Operator Relationship Specialty Start Date End Date Roxanna Moreno MD PCP - General 10/21/16 documented as of this encounter
--- OUTSIDE RECORDS SUMMARY | 2024-08-03 14:53 | XMS_ITS | Encounter Summary ---
Author Organization [facility] Healthcare Address [address] [place] [address] Care Team Providers Care Director Of Strategic Marketing Name Role Phone Roxanna Moreno MD Primary Care Provider + Reason for Visit * Reason Comments Back Pain Encounter Details Date Type Department Care Team (Latest Contact Info) Description 05/17/2021 7:25 AM CDT - 05/17/2021 7:33 AM CDT Hospital Encounter [facility] [address] 1st [place] [address] Dayanna Crump MD [address] [facility] [address] [place] [address] Right inguinal pain (Primary Dx); Other myositis, other site Discharge [...] on file Legal Sex Male 1:57 AM ZIG ZAG STITCHER Gender Identity Male 06/20/2021 2:35 PM ZIG ZAG STITCHER Sexual Orientation Straight 06/20/2021 2: 35 PM ZIG ZAG STITCHER documented as of this encounter Last Filed Vital Signs Vital Sign Reading Time Taken Comments Blood Pressure 155/92 05/17/2021 8:24 AM CDT Pulse 77 05/17/2021 8:24 AM CDT Temperature 36.6 ??C (97.8 ??F) 05/17/2021 7:31 AM CD T Respiratory Rate 15 05/17/2021 8:24 AM CDT Oxygen Saturation 98% 05/17/2021 8:24 AM CDT Inhaled Oxygen Concentration - - Weight - - Height - - Body Mass Index - - documented in this encounter Discharge Instructions * Discharge Instructions* Alisson Adan, RN - 05/17/2021 8:26 AM CDT PAIN [facility]NAGEMENT [facility]ENTER POST-PROCEDURE PATIENT EDUCATION The following procedure was performed in clinic today: T7, T8, T9 Intercostal Nerve Blocks You have received two medications in your [...] when possible. PAIN MANAGEMENT CENTER DISCHARGE INFORMATION PLAN: ??? Follow up in 8-12 weeks for TPI NEW ORDERS: ??? [facility] - [phone]. Calls are accepted Monday-Monday, 7:30am-4pm, excluding observed holidays. We highly encourage the use of [facility] for non-urgent matters as well as prescription refill requests. Dr. Goldberg - Pain Psychologist - [phone] The Pain Management Center is committed to [...] preferred method for refill requests. o Call [phone] and leave a message on the RN [...] on which the pharmacy filled the prescription. [email or web address]/patient-[email or web address]/ documented in this encounter Medications at Time [...] Progress Notes * Dayanna Crump MD - 05/17/2021 7:30 AM CDT Progress Note Patient Name: Aleksandar Olsen : 1980 Today's Date: 05/17/2021 PCP: Roxanna Moreno MD Referring: Roxanna Moreno MD Interval History: Today 05/17/2021 SUBJECTIVE Chief complaint of Chief Complaint Patient presents with ??? Back Pain Patient is here today for right T7, T8, T9 intercostal nerve blocks. His worst pain is in his rightchest wall. The pain is a continuous aching pain worsened with movement. He has numbness in the area of his pain but denies any weakness or bowel/bladder incontinence. During his last visit, he had trigger point injections with 50% benefit for one month. Of note, he cannot have an MRI [...] CAPSULE(60 MG) BY MOUTH DAILY Authorizing Provider: Dayanna Crump MD Notes: ZERO refills remain on this prescription. Your patient is requesting advance approval of refills for this medication to PREVENT ANY MISSED DOSES HYDROCHLOROTHIAZIDE (HYDRODIURIL) 25 MG TABLET Take 25 [...] of Systems Musculoskeletal: Positive for back pain. All other systems negative OBJECTIVE Vitals: Most Recent : Vitals BP 153/90 Pulse 74 Temp 97.8 ??F (36.6 ??C) Resp 15 SpO2 99% Physical Exam: Physical Exam Constitutional: Appearance: He is well-developed. HENT: Head: Normocephalic and atraumatic. Eyes: Extraocular Movements: Extraocular movements intact. Pulmonary: Effort: Pulmonary effort is normal. Abdominal: General: Abdomen is flat. Musculoskeletal: Cervical back: Normal range of motion. Neurological: Mental Status: He is alert and oriented to person, place, and time. Labs/Radiology/Diagnostic Review: No recent results to review ASSESSMENT Mr. Aleksandar Olsen is a 40 y.o. male who presents with Problem List Items Addressed This Visit Gastrointestinal and Abdominal Inguinal pain - Primary PLAN: 1. ??Intervention: Right T7, T8, T9 intercostal nerve block today trigger point injections in 8-12 weeks - Continue Medtronic SCS use for back and right chest pain. Pt uses high frequency setting intermittently. 2. ??Medications: ?a. Opioids: ??none indicated at this time. ?b. Adjuvants:??continue lidocaine cream, voltaren gel, duloxetine 60 mg daily, TENS unit?? -Continue Lyrica to 50 mg TID (higher doses make him drowsy). 3. ??Imaging: Previously had a CT cervical spine at [place] and images were previously reviewed. Report scanned into media tab, dated 08/10/2018. 4. ??Referral: ??He has participated in PT. Continue HEP ?? 5. ??Follow-up: TPI in 8-12 weeks 05/17/2021 7:45 AM ?? documented in this encounter Miscellaneous Notes * Op Note - Dayanna Crump MD - 05/17/2021 7:30 AM CDT Patient ID Patient Name: Aleksandar Olsen : 1980 DOS: 05/17/2021 PCP: Roxanna Moreno MD Surgeon SURGEON: Dayanna Crump MD SPONGE PACKER SURGEON: None Procedures NAME OF PROCEDURE: Intercostal nerve block at Right T7, T8 and T9, under Fluoroscopy. PRE-PROCEDURE DIAGNOSES: Intercostal Neuralgia. POST-PROCEDURE DIAGNOSES: same INDICATION FOR PROCEDURE: neuralgia INFORMED CONSTENT: After reviewing the procedure [...] None Specimens: None Blood/Blood Products Transfused: None TEACHING ATTESTATION : I was present and directly participated in the entire procedure (including opening and closing). Dayanna Crump MD 05/17/2021 8:27 AM * Addendum Note - Eliz Acosta RT - 05/17/2021 7:30 AM CDTEncounter addended by: Eliz Acosta RT on: 05/17/2021 8:59 AM Actions taken: Charge Capture section accepted * Addendum Note - Catarina Ramirez MD - 05/17/2021 7:30 AM CDTEncounter addended by: Catarina Ramirez MD on: 05/17/2021 9:20 AM Actions taken: Delete clinical note documented in this encounter Plan of Treatment Not on file documented as of this encounter Goals Goal Patient Goal Type Associated Problems Recent Progress Patient-Stated? Author CCM Chronic Pain Care Plan Chronic Care Management No change(07/21 7:32 AM ZIG ZAG STITCHER) No Saran Quiñones, MABLE Note: Problem: Chronic Pain Goals: 1. Minimize further functional decline 2. Maximize quality of life 3. Control pain Strategies: - Activity/exercise program recommendation - Conservative stepwise pain medicine strategy with multi-disciplinary approach - Recommend healthy lifestyle strategies and compensatory methods as needed Reduce the likelihood of falling Lifestyle No change(07/21 7:32 AM ZIG ZAG STITCHER) No Kenyatta Kaufman, MABLE Note: Below are [...] as of this encounter Visit Diagnoses Diagnosis Right inguinal pain- Primary Abdominal pain, right lower quadrant Other myositis, other site documented in this encounter Administered Medications Inactive Administered Medications - up to 3 most recent administrations Medication Order MAR Action Action Date Dose Rate Site bupivacaine (MARCAINE) 0.25 % (2.5 mg/mL) preservative free injection As needed, Starting on Mon05/17/21 at 0821, Intra-Op Given 05/17/2021 8:21 AM CDT 8 mL iohexoL (OMNIPAQUE) 300 mg iodine/mL injection solution As needed, Starting on Mon05/17/21 at 0821, Intra-Op Given 05/17/2021 8:21 AM CDT 1.5 mL lidocaine (XYLOCAINE) 10 mg/mL (1 %) injection As needed, Starting on Mon05/17/21 at 0817, Intra-Op, Indications: Administration of Local AnesthesiaIndications:Administrati on of Local Anesthesia Given 05/17/2021 8:17 AM CDT 4 mL methylPREDNISolone acetate (DEPO-medrol) injection As needed, Starting on Mon05/17/21 at 0822, Intra-Op Given 05/17/2021 8:22 AM CDT 40 mg documented in this encounter Orders Discharge Count Last Ordered Date First Orde red Date DISCHARGE PATIENT 1 05/17/2021 documented in this encounter Care Teams Director Of Strategic Marketing Relationship Specialty Start Date End Date Roxanna Moreno MD PCP - General 10/21/16 documented as of this encounter
--- OUTSIDE RECORDS SUMMARY | 2024-08-03 14:53 | XMS_ITS | Encounter Summary ---
Author Organization [facility] Healthcare Address [address] [place] [address] Care Team Providers Care Can Worker Name Role Phone Roxanna Moreno MD Primary Care Provider + Reason for Referral * Diagnostic Imaging (Routine) - Closed Specialty Diagnoses / Procedures Referred By Rayne navarro Referred To Contact Diagnoses Mid back pain Procedures FL Fluoro Guided Needle Placement Dayanna Crump MD Phone: tel: fax: [place] [address] [place] [address] Referral ID Status Reason Start Date Expiration Date Visits Re quested Visits Authorized [id number] Closed 11/09/2021 12/09/2022 1 1 Reason for Visit * Diagnostic Imaging (Routine) - Closed Specialty Diagnoses / Procedures Referred By Rayne navarro Referred To Contact Diagnoses Mid back pain Procedures FL Fluoro Guided Needle Placement Dayanna Crump MD Phone: tel: fax: [place] [id number] [place] [address] Referral ID Status Reason Start Date Expiration Date Visits Re quested Visits Authorized [id number] Closed 11/09/2021 12/09/2022 1 1 Encounter Details Date Type Department Care Team (Latest Contact Info) Description 11/22/2021 7:45 AM CDT - 11/22/2021 11:59 PM CDT Hospital Encounter [facility] [address] [place] [address] Mid back pain Discharge Disposition: Discharge to [...] on file Legal Sex Male 1:57 AM AQUACULTURE DIRECTOR Gender Identity Male 06/20/2021 2:35 PM AQUACULTURE DIRECTOR Sexual Orientation Straight 06/20/2021 2: 35 PM AQUACULTURE DIRECTOR documented as of this encounter Medications at [...] Chronic Care Management No change(07/21 7:32 AM AQUACULTURE DIRECTOR) No Saran Quiñones, RN Note: Problem: Chronic Pain Goals: 1. Minimize further functional decline 2. Maximize quality of life 3. Control pain Strategies: - Activity/exercise program recommendation - Conservative stepwise pain medicine strategy with multi-disciplinary approach - Recommend healthy lifestyle strategies and compensatory methods as needed Reduce the likelihood of falling Lifestyle No change(07/21 7:32 AM AQUACULTURE DIRECTOR) No Kenyatta Kaufman, MABLE Note: Below are [...] on stairs Contact your local community or [facility] for information on exercise, fall prevention programs, or options for improving home safety. documented as of this encounter Procedures Procedure Name Priority Date/Time Associated Diagnosis Comments FLUORO GUIDED NEEDLE PLACEMENT Schedule Routine, Read Routine (OP Routine) 11/22/2021 8:20 AM CDT Mid back pain documented in this encounter Results * FL Fluoro Guided Needle Placement (11/22/2021 8:20 AM CDT) Narrative [facility] - 11/22/2021 8:50 AM CDT The images from this study are not interpreted by Radiology. ??Please refer to the physician's procedure / OR operative note. us Dayanna Crump MD IMG FLUOROSCOPY [employer] Final Result [facility] documented in this encounter Visit Diagnoses Diagnosis Mid back pain documented in this encounter Care Teams Can Worker Relationship Specialty Start Date End Date Roxanna Moreno MD PCP - General 10/21/16 documented as of this encounter
--- OUTSIDE RECORDS SUMMARY | 2024-08-03 14:53 | XMS_ITS | Encounter Summary ---
Author Organization [facility] Healthcare Address [address] [place] [address] Care Team Providers Care Lactation Consultant Name Role Phone Roxanna Moreno MD Primary Care Provider + Reason for Referral * Diagnostic Imaging (Routine) - Closed Specialty Diagnoses / Procedures Referred By Rayne navarro Referred To Contact Diagnoses Low back pain Procedures FL Fluoro Guided Needle Placement Dayanna Crump MD Phone: tel: fax: [place] [address] [place] [address] Referral ID Status Reason Start Date Expiration Date Visits Re quested Visits Authorized [id number] Closed 02/16/2021 03/18/2022 1 1 Reason for Visit * Diagnostic Imaging (Routine) - Closed Specialty Diagnoses / Procedures Referred By Rayne navarro Referred To Contact Diagnoses Low back pain Procedures FL Fluoro Guided Needle Placement Dayanna Crump MD Phone: tel: fax: [place] [id number] [place] [address] Referral ID Status Reason Start Date Expiration Date Visits Re quested Visits Authorized [id number] Closed 02/16/2021 03/18/2022 1 1 Encounter Details Date Type Department Care Team (Latest Contact Info) Description 02/22/2021 7:48 AM CDT - 02/22/2021 11:59 PM CDT Hospital Encounter [facility] [address] [place] [address] Low back pain Discharge Disposition: Discharge to home [...] on file Legal Sex Male 1:57 AM INSIDE OUTSIDE SALES REPRESENTATIVE Gender Identity Male 06/20/2021 2:35 PM INSIDE OUTSIDE SALES REPRESENTATIVE Sexual Orientation Straight 06/20/2021 2: 35 PM INSIDE OUTSIDE SALES REPRESENTATIVE documented as of this encounter Medications at [...] Chronic Care Management No change(07/21 7:32 AM INSIDE OUTSIDE SALES REPRESENTATIVE) No Saran Quiñones, RN Note: Problem: Chronic Pain Goals: 1. Minimize further functional decline 2. Maximize quality of life 3. Control pain Strategies: - Activity/exercise program recommendation - Conservative stepwise pain medicine strategy with multi-disciplinary approach - Recommend healthy lifestyle strategies and compensatory methods as needed Reduce the likelihood of falling Lifestyle No change(07/21 7:32 AM INSIDE OUTSIDE SALES REPRESENTATIVE) No Kenyatta Kaufman, MABLE Note: Below are [...] on stairs Contact your local community or [facility] for information on exercise, fall prevention programs, or options for improving home safety. documented as of this encounter Procedures Procedure Name Priority Date/Time Associated Diagnosis Comments FLUORO GUIDED NEEDLE PLACEMENT Schedule Routine, Read Routine (OP Routine) 02/22/2021 8:15 AM CDT Low back pain documented in this encounter Results * FL Fluoro Guided Needle Placement (02/22/2021 8:15 AM CDT) Narrative [facility] - 02/22/2021 8:48 AM CDT The images from this study are not interpreted by Radiology. ??Please refer to the physician's procedure / OR operative note. us Dayanna Crump MD IMG FLUOROSCOPY [employer] Final Result [facility] documented in this encounter Visit Diagnoses Diagnosis Low back pain Lumbago documented in this encounter Care Teams Lactation Consultant Relationship Specialty Start Date End Date Roxanna Moreno MD PCP - General 10/21/16 documented as of this encounter
--- OUTSIDE RECORDS SUMMARY | 2024-08-03 14:53 | XMS_ITS | Encounter Summary ---
Author Organization [facility] Healthcare Address [address] [place] [address] Care Team Providers Care Printing Estimator Name Role Phone Roxanna Moreno MD Primary Care Provider + Encounter Details Date Type Department Care Team (Latest Contact Info) Description 11/22/2021 7:31 AM CDT - 11/22/2021 7:44 AM CDT Hospital Encounter [facility] [address] [facility] 1st [place] [id number] Dayanna Crump MD [address] [place] [address] Intercostal neuralgia (Primary Dx) Discharge Disposition: Discharge [...] on file Legal Sex Male 1:57 AM ITEM PROCESSOR Gender Identity Male 06/20/2021 2:35 PM ITEM PROCESSOR Sexual Orientation Straight 06/20/2021 2: 35 PM ITEM PROCESSOR documented as of this encounter Last Filed Vital Signs Vital Sign Reading Time Taken Comments Blood Pressure 124/86 11/22/2021 8:34 AM CDT Pulse 72 11/22/2021 8:34 AM CDT Temperature 36.9 ??C (98.4 ??F) 11/22/2021 7:37 AM CD T Respiratory Rate 16 11/22/2021 8:34 AM CDT Oxygen Saturation 100% 11/22/2021 8:34 AM CDT Inhaled Oxygen Concentration - - Weight 124.3 kg (274 lb) 11/22/2021 7:37 AM CDT Height 180.3 cm (5' 11 ) 11/22/2021 7:37 AM CDT Body Mass Index 38.22 11/22/2021 7:37 AM CDT documented in this encounter Discharge Instructions * Discharge Instructions* Helen Munson, MABLE - 11/22/2021 8:36 AM CDT PAIN MANAGEMENT CENTER POST-PROCEDURE PATIENT EDUCATION The following procedure was performed in clinic today: Right T7 T8 T9 Intercostal Nerve Block You have received [...] INFORMATION PLAN / NEW ORDERS: ??? Return appointment in 6-10 weeks [facility] - [phone]. Calls are accepted Monday-Monday, 7:30am-4pm, excluding observed holidays. ??? We highly encourage the use of MyChart for non-urgent matters as well as prescription refill requests. ??? If you need to schedule an appointment with Dr. Goldberg - Pain Psychologist - [phone] ??? If you are scheduled for an MRI we encourage you to schedule [facility] physicians work closely with the Radiology Imaging Department and the physicians that read the images. In addition the images are of higher quality, and we receive the results quicker. If you choose to use an imaging location outside of [facility] and/or have [facility] Insurance, please notify us immediately with a message on our nurse line or by sending a [employer] message with the following: - Location - [...] preferred method for refill requests. o Call [phone] and leave a message on the RN [...] on which the pharmacy filled the prescription. [email or web address] We strive to provide you with EXCELLENT service as our patient. You may receive a survey after your visit today. If you can not rate your experience as EXCELLENT, please let us know how we can improve and better meet your needs. Thank you for choosing [facility]! documented in this encounter [...] documented in this encounter Progress Notes * Catarina Ramirez MD - 11/22/2021 8:00 AM CDT Progress Note Patient Name: Aleksandar Olsen : 1980 Today's Date: 11/22/2021 PCP: Roxanna Moreno MD Referring: Roxanna Moreno MD Interval History: Today 11/22/2021 SUBJECTIVE Chief complaint of No chief complaint on file. Patient is here today for right T7, T8, and T9 intercostal nerve blocks. During his last visit he had trigger point injections which provided 50% relief for a month. His worst pain is in the mid thoracic back with radiation to his right chest. His pain regimen includes Lyrica, duloxetine, sertraline, TENS unit as well as OTC topicals (voltaren, lidocaine) which are well tolerated with benefit. Patient's Medications New Prescriptions No medications on file Previous Medications ATORVASTATIN (LIPITOR) 40 MG TABLET Take 40 mg by mouth daily Authorizing Provider: Fernanda Pompa MD Notes: -- HYDROCHLOROTHIAZIDE (MICROZIDE) 12.5 MG [...] Fernanda Pompa MD Notes: -- Modified Medications Modified Medication Previous Medication DULOXETINE DR (CYMBALTA) [address] (CYMBALTA) 60 mg capsule TAKE 1 CAPSULE(60 MG) BY MOUTH DAILY TAKE 1 CAPSULE(60 MG) BY MOUTH DAILY Authorizing Provider: Catarina Ramirez MD Authorizing Provider: Husain, Madina N., BARK TANNER Notes: -- Notes: ZERO refills remain on this prescription. Your patient is requesting advance approval of refills for this medication to PREVENT ANY MISSED DOSES Discontinued Medications No medications on file ROS Review of Systems Musculoskeletal: Positive for back pain, myalgias and neck pain. OBJECTIVE Vitals: Most Recent : Vitals BP 124/86 Pulse 72 Temp 98.4 ??F (36.9 ??C) Resp 16 Ht 180.3 cm (5' 11 ) Wt 124.3 kg (274 lb) SpO2 100% BMI 38.22 kg/m?? Physical Exam: Physical Exam Pulmonary: Effort: Pulmonary effort is normal. Neurological: Mental Status: He is alert and oriented to person, place, and time. Labs/Radiology/Diagnostic Review: No recent results to review ASSESSMENT Mr. Aleksandar Olsen is a 41 y.o. male who presents with Problem List Items Addressed This Visit Neuro Intercostal neuralgia - Primary PLAN: 1. ??Intervention: Right T7, T8, and T9 intercostal block today TPI in 8-10 weeks - Continue Medtronic SCS use for back and right chest pain. Pt uses high frequency setting intermittently. 2. ??Medications: ?a. Opioids: ??none indicated at this time. ?b. Adjuvants:??continue lidocaine cream, voltaren gel, duloxetine 60 mg daily, TENS unit?? -Continue Lyrica to 50 mg TID (higher doses make him drowsy). 3. ??Imaging: Previously had a CT cervical spine at [facility] and images were previously reviewed. Report scanned into media tab, dated 08/10/2018. 4. ??Referral: ??He has participated in PT. Continue HEP ?? 5. ??Follow-up: TPI Catarina Ramirez MD Fellow 11/22/2021 8:40 AM ?? Cosigned by Dayanna Crump MD at 11/22/2021 10:51 AM CDT Associated attestation - Dayanna Crump MD - 11/22/2021 10:51 AM CDT I have seen and examined the patient on 11/22/21. I agree with the findings and plan of care as documented in the resident's/fellow's note.. documented in this encounter Miscellaneous Notes * Op Note - Dayanna Crump MD - 11/22/2021 8:00 AM CDT Patient ID Patient Name: Aleksandar Olsen : 1980 DOS: 11/22/2021 PCP: Roxanna Moreno MD Surgeon SURGEON: Dayanna Crmup MD PLATE WASHER SURGEON: Julio Ramirez MD Procedures NAME OF PROCEDURE: Intercostal nerve block [...] Radiographic contrast (Omnipaque 300) was injected (volume 2 ml.) There was spread of [...] (including opening and closing). Dayanna Crump MD 11/22/2021 8:34 AM documented in this encounter Plan of Treatment Not on file documented as of this encounter Goals Goal Patient Goal Type Associated Problems Recent Progress Patient-Stated? Author CCM Chronic Pain Care Plan Chronic Care Management No change(07/21 7:32 AM ITEM PROCESSOR) No Saran Quiñones, MABLE Note: Problem: Chronic Pain Goals: 1. Minimize further functional decline 2. Maximize quality of life 3. Control pain Strategies: - Activity/exercise program recommendation - Conservative stepwise pain medicine strategy with multi-disciplinary approach - Recommend healthy lifestyle strategies and compensatory methods as needed Reduce the likelihood of falling Lifestyle No change(07/21 7:32 AM ITEM PROCESSOR) No Kenyatta Kaufman RN Note: Below are [...] on stairs Contact your local community or [facility] for information on exercise, fall prevention programs, [...] preservative free injection As needed, Starting on Mon11/22/21 at 0825, Intra-Op Given 11/22/2021 8:25 AM CDT 8 mL iohexoL (OMNIPAQUE) 300 mg iodine/mL injection solution As needed, Starting on Mon11/22/21 at 0825, Intra-Op Given 11/22/2021 8:25 AM CDT 4 mL lidocaine PF (XYLOCAINE) 10 mg/mL (1 %) preservative free injection As needed, Starting on Mon11/22/21 at 0820, Intra-Op Given 11/22/2021 8:20 AM CDT 6 mL methylPREDNISolone acetate (DEPO-medrol) injection As needed, Starting on Mon11/22/21 at 0826, Intra-Op Given 11/22/2021 8:26 AM CDT 40 mg documented in this encounter Orders Discharge Count Last Ordered Date First Orde red Date DISCHARGE PATIENT 1 11/22/2021 documented in this encounter Care Teams Printing Estimator Relationship Specialty Start Date End Date Roxanna Moreno MD PCP - General 10/21/16 documented as of this encounter
--- OUTSIDE RECORDS SUMMARY | 2024-08-03 14:53 | XMS_ITS | Encounter Summary ---
Author Organization [facility] Healthcare Address [address] [place] [address] Care Team Providers Care Paint Booth Operator Name Role Phone Roxanna Moreno MD Primary Care Provider + Reason for Visit * Reason Comments Back Pain Encounter Details Date Type Department Care Team (Latest Contact Info) Description 06/21/2021 8:00 AM FAMILY MEDICINE RESIDENT - 06/21/2021 11:59 PM FAMILY MEDICINE RESIDENT Hospital Encounter [facility] [address] [facility] 1st [place] [id number] Dayanna Crump MD [address] [facility] [address] [place] [address] Other myositis, other site (Primary Dx) Discharge [...] on file Legal Sex Male 1:57 AM FAMILY MEDICINE RESIDENT Gender Identity Male 06/20/2021 2:35 PM FAMILY MEDICINE RESIDENT Sexual Orientation Straight 06/20/2021 2: 35 PM FAMILY MEDICINE RESIDENT documented as of this encounter Last Filed Vital Signs Vital Sign Reading Time Taken Comments Blood Pressure 145/98 06/21/2021 8:14 AM FAMILY MEDICINE RESIDENT Pulse 75 06/21/2021 8:14 AM FAMILY MEDICINE RESIDENT Temperature 36.7 ??C (98.1 ??F) 06/21/2021 8:14 AM CS T Respiratory Rate 18 06/21/2021 8:14 AM FAMILY MEDICINE RESIDENT Oxygen Saturation 98% 06/21/2021 8:14 AM FAMILY MEDICINE RESIDENT Inhaled Oxygen Concentration - - Weight - - Height - - Body Mass Index - - documented in this encounter Medications at Time [...] Progress Notes * Dayanna Crump MD - 06/21/2021 8:00 AM CST Progress Note Patient Name: Aleksandar Olsen : 1980 Today's Date: 06/21/2021 PCP: Roxanna Moreno MD Referring: Roxanna Moreno MD Interval History: Today 06/21/2021 SUBJECTIVE Chief complaint of Chief Complaint Patient presents with ??? Back Pain Patient is here today for TPI During his Last visit he had a right T7, T8, T9 intercostal nerve blocks for right chest wall with 75% improvement in pain Of note, he cannot [...] OBJECTIVE Vitals: Most Recent : Vitals BP 145/98 Pulse 75 Temp 98.1 ??F (36.7 ??C) Resp 18 [...] other site - Primary PLAN: 1. ??Intervention: TPI today Right T7, T8, T9 intercostal nerve block in 8-12 weeks - Continue Medtronic SCS use for back and right chest pain. Pt uses high frequency setting intermittently. 2. ??Medications: ?a. Opioids: ??none indicated at this time. ?b. Adjuvants:??continue lidocaine cream, voltaren gel, duloxetine 60 mg daily, TENS unit?? -Continue Lyrica to 50 mg TID (higher doses make him drowsy). 3. ??Imaging: Previously had a CT cervical spine at [place] and images were previously reviewed. Report scanned into media tab, dated 08/10/2018. 4. ??Referral: ??He has participated in PT. Continue HEP ?? 5. ??Follow-up: 8-12 weeks for Right T7, T8, T9 intercostal nerve block 06/21/2021 8:34 AM ?? LY MEDICINE RESIDENT documented in this encounter Miscellaneous Notes * Op Note - Dayanna Crump MD - 06/21/2021 8:00 AM CST Patient ID Patient Name: Aleksandar Olsen : 1980 DOS: 06/21/2021 PCP: Roxanna Moreno MD Surgeon SURGEON: Dayanna Crump MD RADAR AIR TRAFFIC CONTROLLER SURGEON: None Diagnosis: back pain and Neck Pain NAME OF [...] of injectate 0.25% Bupivacaine Total ml injected: 8 ml Total number of muscle groups: 2 [...] Resident involved on case Dayanna Crump MD 06/21/2021 11:39 AM LY MEDICINE RESIDENT documented in this encounter Plan of Treatment Not on file documented as of this encounter Goals Goal Patient Goal Type Associated Problems Recent Progress Patient-Stated? Author CCM Chronic Pain Care Plan Chronic Care Management No change(07/21 7:32 AM FAMILY MEDICINE RESIDENT) No Saran Quiñones, RN Note: Problem: Chronic Pain Goals: 1. Minimize further functional decline 2. Maximize quality of life 3. Control pain Strategies: - Activity/exercise program recommendation - Conservative stepwise pain medicine strategy with multi-disciplinary approach - Recommend healthy lifestyle strategies and compensatory methods as needed Reduce the likelihood of falling Lifestyle No change(07/21 7:32 AM FAMILY MEDICINE RESIDENT) No Kenyatta Kaufman, MABLE Note: Below are [...] on stairs Contact your local community or [facility] for information on exercise, fall prevention [...] preservative free injection As needed, Starting on 06/21/21 at 0842, Intra-Op Given 06/21/2021 8:42 AM FAMILY MEDICINE RESIDENT 8 mL documented in this encounter Orders Discharge Count Last Ordered Date First Orde red Date DISCHARGE PATIENT 1 06/21/2021 documented in this encounter Care Teams Paint Booth Operator Relationship Specialty Start Date End Date Roxanna Moreno MD PCP - General 10/21/16 documented as of this encounter
--- OUTSIDE RECORDS SUMMARY | 2024-08-03 14:54 | XMS_ITS | Encounter Summary ---
Author Organization [facility] Healthcare Address [address] [place] [address] Care Team Providers Care Snow Fence Erector Name Role Phone Roxanna Moreno MD Primary Care Provider + Reason for Visit * Diagnostic Imaging (Routine) - Closed Specialty Diagnoses / Procedures Referred By Contmarsha t Referred To Contact Diagnoses Mid back pain Procedures FL Fluoro Guided Needle Placement Dayanna Crump MD Phone: tel: fax: [address] [address] Referral ID Status Reason Start Date Expiration Date Visits Re quested Visits Authorized [id number] Closed 11/18/2020 12/18/2021 1 1 Encounter Details Date Type Department Care Team (Late st Contact Info) Description 11/25/2020 7:20 AM CDT Ancillary Procedure [facility] at [address] [address] Dayanna Crump MD [address] [place] [address] Mid back pain Social History Tobacco Use Types Packs/Day Years Used Date Smoking Tobacco: Never Smokeless Tobacco: Former Quit: 05/2011 Alcohol Use Standard Drinks/Week Comments Yes 0 (1 standard drink = 0.6 oz pur e alcohol) RARE 3-4 q year Sex and Gender Information Value Date Recorded Sex Assigned at Not on file Legal Sex Male 1:57 AM SPEECH LANG PATH THERAPIST Gender Identity Male 06/20/2021 2:35 PM SPEECH LANG PATH THERAPIST Sexual Orientation Straight 06/20/2021 2: 35 PM SPEECH LANG PATH THERAPIST documented as of this encounter Plan of Treatment Not on file documented as of this encounter Goals Goal Patient Goal Type Associated Problems Recent Progress Patient-Stated? Author CCM Chronic Pain Care Plan Chronic Care Management No change(07/21 7:32 AM SPEECH LANG PATH THERAPIST) No Saran Quiñones, RN Note: Problem: Chronic Pain Goals: 1. Minimize further functional decline 2. Maximize quality of life 3. Control pain Strategies: - Activity/exercise program recommendation - Conservative stepwise pain medicine strategy with multi-disciplinary approach - Recommend healthy lifestyle strategies and compensatory methods as needed Reduce the likelihood of falling Lifestyle No change(07/21 7:32 AM SPEECH LANG PATH THERAPIST) No Kenyatta Kaufman, MABLE Note: Below are [...] PLACEMENT Schedule Routine, Read Routine (OP Routine) 11/25/2020 8:50 AM CDT Mid back pain documented in this encounter Results * FL Fluoro Guided Needle Placement (11/25/2020 8:50 AM CDT) Narrative [facility] - 11/25/2020 9:34 AM CDT The images from this study are not interpreted by Radiology. ??Please refer to the physician's procedure / OR operative note. us Dayanna Crump MD IMG FLUOROSCOPY [employer] Final Result [facility] documented in this encounter Visit Diagnoses Diagnosis Mid back pain documented in this encounter Care Teams Snow Fence Erector Relationship Specialty Start Date End Date Roxanna Moreno MD PCP - General 10/21/16 documented as of this encounter
--- OUTSIDE RECORDS SUMMARY | 2024-08-03 14:54 | XMS_ITS | Encounter Summary ---
Author Organization [facility] Healthcare Address [address] [place] [address] Care Team Providers Care Service Coordinator Name Role Phone Roxanna Moreno MD Primary Care Provider + Reason for Visit * Reason Comments Injections Neck Pain Back Pain Encounter Details Date Type Department Care Team (Latest Contact Info) Description 12/25/2020 7:24 AM CDT - 12/25/2020 11:59 PM CDT Hospital Encounter [facility] [address] [facility] 1st [place] [address] Dayanna Crump MD [address] [facility] [address] [place] [address] Chronic right-sided thoracic back pain (Primary Dx); Other chronic pain Discharge Disposition: Discharge to home or [...] on file Legal Sex Male 1:57 AM COMMERCIAL AGENT Gender Identity Male 06/20/2021 2:35 PM COMMERCIAL AGENT Sexual Orientation Straight 06/20/2021 2: 35 PM COMMERCIAL AGENT documented as of this encounter Last Filed Vital Signs Vital Sign Reading Time Taken Comments Blood Pressure 144/89 12/25/2020 7:40 AM CDT Pulse 66 12/25/2020 7:40 AM CDT Temperature 36.6 ??C (97.8 ??F) 12/25/2020 7:40 AM CD T Respiratory Rate 16 12/25/2020 7:40 AM CDT Oxygen Saturation 98% 12/25/2020 7:40 AM CDT Inhaled Oxygen Concentration - - Weight 113.9 kg (251 lb 1.6 oz) 12/25/2020 7:40 AM CDT Height 180.3 cm (5' 11 ) 12/25/2020 7:40 AM CDT Body Mass Index 35.02 12/25/2020 7:40 AM CDT documented in this encounter Discharge Instructions * Patient Instructions* Lupe Awan RN - 12/25/2020 7:30 AM CDT [facility] PATIENT EDUCATION [...] Center AFTER receiving care for the symptoms. Schedule for Intercostal Nerve Block in 8-10 weeks documented in this encounter Medications at Time [...] MG) BY MOUTH DAILY 30 capsule 2 10/07/2020 1 hydroCHLOROthiaz jamaica (HYDRODIURIL) 25 mg tabletIndication s:hypertension Take 25 mg by mouth every morning 2 01/18/2018 2 lidocaine (XYLOCAINE) 5 % ointment Apply topically 2 (two) times a day as needed for pain 35.44 g 5 08/21/2020 3 documented as of this encounter Discharge Disposition Disposition Code Departure Means Destination Discharge to home or self care documented in this encounter H&P Notes * Dayanna Crump MD - 12/25/2020 7:30 AM CDT I have reviewed the note above find the patient acceptable candidate for trigger point injection. Source Note - Dayanna Crump MD - 11/25/2020 8:15 AM CDT Progress Note Patient Name: Aleksandar Olsen : 1980 Today's Date: 11/25/2020 PCP: Roxanna Moreno MD Referring: No ref. provider found Interval History: Today 11/25/2020 SUBJECTIVE Chief complaint of Chief Complaint Patient presents with ??? Back Pain thoracic Patient is here today for right T7, T8, T9 intercostal nerve blocks Last injection provided 85% improvement in pain trigger point injections.done 8 weeks ago provided significant benefit. Of note, he cannot have an MRI [...] Medications No medications on file Discontinued Medications UNABLE TO FIND Med Name: medical marijuana Authorizing Provider: ProviderFernanda MD Notes: >> DONNY KHAN MonNov 25, 2020 8:09 AM Not using medical marijuana ROS Review of Systems Constitutional: Negative for chills and fever. Respiratory: Negative for shortness of breath. Musculoskeletal: Positive for back pain and neck pain. OBJECTIVE Vitals: Most Recent : Vitals BP (!) 147/104 Pulse 73 Temp 97.6 ??F (36.4 ??C) Resp 16 Wt 113.4 kg (250 lb) SpO2 98% BMI 35.87 kg/m?? Physical Exam: Physical Exam Constitutional: Appearance: He is well-developed. Pulmonary: Effort: Pulmonary effort is normal. Neurological: Mental Status: He is alert and oriented to person, place, and time. Labs/Radiology/Diagnostic Review: No recent results to review ASSESSMENT Mr. Aleksandar Olsen is a 40 y.o. male who presents with Problem List Items Addressed This Visit Nervous Intercostal neuralgia - Primary PLAN: 1. ??Intervention: [...] Previously had a CT cervical spine at [place] and images were previously reviewed. Report scanned into media tab, dated 08/10/2018. 4. ??Referral: ??He has participated in PT. Continue HEP ?? 5. ??Follow-up: For TPI in 4-8 weeks 11/25/2020 8:12 AM ?? * Dayanna Crump MD - 12/25/2020 7:30 AM CDT Mr. Olsen received 75% improvement in pain from his last intercostal nerve block Source Note - Dayanna Crump MD - 11/25/2020 8:15 AM CDT Progress Note Patient Name: Aleksandar Olsen : 1980 Today's Date: 11/25/2020 PCP: Roxanna Moreno MD Referring: No ref. provider found Interval History: Today 11/25/2020 SUBJECTIVE Chief complaint of Chief Complaint Patient presents with ??? Back Pain thoracic Patient is here today for right T7, T8, T9 intercostal nerve blocks Last injection provided 85% improvement in pain trigger point injections.done 8 weeks ago provided significant benefit. Of note, he cannot have an MRI [...] Medications No medications on file Discontinued Medications UNABLE TO FIND Med Name: medical marijuana Authorizing Provider: Fernanda Pompa MD Notes: >> DONNY KHAN TomChristina MonNov 25, 2020 8:09 AM Not using medical marijuana ROS Review of Systems Constitutional: Negative for chills and fever. Respiratory: Negative for shortness of breath. Musculoskeletal: Positive for back pain and neck pain. OBJECTIVE Vitals: Most Recent : Vitals BP (!) 147/104 Pulse 73 Temp 97.6 ??F (36.4 ??C) Resp 16 Wt 113.4 kg (250 lb) SpO2 98% BMI 35.87 kg/m?? Physical Exam: Physical Exam Constitutional: Appearance: He is well-developed. Pulmonary: Effort: Pulmonary effort is normal. Neurological: Mental Status: He is alert and oriented to person, place, and time. Labs/Radiology/Diagnostic Review: No recent results to review ASSESSMENT Mr. Aleksandar Olsen is a 40 y.o. male who presents with Problem List Items Addressed This Visit Nervous Intercostal neuralgia - Primary PLAN: 1. ??Intervention: [...] Previously had a CT cervical spine at [place] and images were previously reviewed. Report scanned into media tab, dated 08/10/2018. 4. ??Referral: ??He has participated in PT. Continue HEP ?? 5. ??Follow-up: For TPI in 4-8 weeks 11/25/2020 8:12 AM ?? documented in this encounter Miscellaneous Notes * Op Note - Dayanna Crump MD - 12/25/2020 7:30 AM CDT Patient ID Patient Name: Aleksandar Olsen : 1980 DOS: 12/25/2020 PCP: Roxanna Moreno MD Surgeon SURGEON: Dayanna Crump MD JUTE BAG CUTTING MACHINE OPERATOR SURGEON: None Diagnosis: Back pain and Neck Pain NAME OF PROCEDURE: [...] of injectate 0.25% Bupivacaine Total ml injected: 6 ml Total number of muscle groups: 2 [...] Resident involved on case Dayanna Crump MD 12/25/2020 8:03 AM * Addendum Note - Charbel Brandt RT - 12/25/2020 7:30 AM CDTEncounter addended by: Charbel Brandt RT on: 12/25/2020 8:13 AM Actions taken: Charge Capture section accepted * Addendum Note - Alisson Adan RN - 12/25/2020 7:30 AM CDTEncounter addended by: Alisson Adan RN on: 12/25/2020 9:21 AM Actions taken: Charge Capture section accepted documented in this encounter Plan of Treatment Not on file documented as of this encounter Goals Goal Patient Goal Type Associated Problems Recent Progress Patient-Stated? Author CCM Chronic Pain Care Plan Chronic Care Management No change(07/21 7:32 AM COMMERCIAL AGENT) No Saran Quiñones, MABLE Note: Problem: Chronic Pain Goals: 1. Minimize further functional decline 2. Maximize quality of life 3. Control pain Strategies: - Activity/exercise program recommendation - Conservative stepwise pain medicine strategy with multi-disciplinary approach - Recommend healthy lifestyle strategies and compensatory methods as needed Reduce the likelihood of falling Lifestyle No change(07/21 7:32 AM COMMERCIAL AGENT) Kenyatta Carlton RN Note: Below are four [...] on stairs Contact your local community or [facility] for information on exercise, fall prevention programs, or options for improving home safety. documented as of this encounter Visit Diagnoses Diagnosis Chronic right-sided thoracic back pain- Primary Other chronic pain documented in this encounter Administered Medications Inactive Administered Medications - up to 3 most recent administrations Medication Order MAR Action Action Date Dose Rate Site bupivacaine (MARCAINE) 0.25 % (2.5 mg/mL) preservative free injection As needed, Starting on Mon12/25/20 at 0753, Intra-Op Given 12/25/2020 7:53 AM CDT 6 mL documented in this encounter Orders Medications Ordered That Eyad ht Not Have Been Administered Count Last Ordered Date First Ordered Date methylPREDNISolone acetate ( DEPO-medrol) injection 1 12/25/2020 documented in this encounter Care Teams Service Coordinator Relationship Specialty Start Date End Date Roxanna Moreno MD PCP - General 10/21/16 documented as of this encounter
--- OUTSIDE RECORDS SUMMARY | 2024-08-03 14:55 | XMS_ITS | Encounter Summary ---
Author Organization [facility] Address [address] [place] [address] Phone Care Team Providers Care Barrel Bander Name Role Phone Roxanna Moreno MD Primary Care Provider + Reason for Visit * Reason Comments Post-op Post-op Encounter Details Date Type Department Care Team (Late st Contact Info) Description 05/13/2020 9:10 AM CDT Office Visit [facility] Orthopaedic Surgery [id number] [place] [address] 2nd [address] [place] [address] Angel Nelson MD [address] [facility] [address]6B[address]12A [place] [address] Carpal tunnel syndrome, bilateral (Primary Dx) Social History Tobacco Use Types Packs/Day Years Used Date Smoking Tobacco: Never Smokeless Tobacco: Former Quit: 05/2011 Alcohol Use Standard Drinks/Week Comments Yes 0 (1 standard drink = 0.6 oz pur e alcohol) RARE 3-4 q year Sex and Gender Information Value Date Recorded Sex Assigned at Not on file Legal Sex Male 1:57 AM JEWEL BEARING BROACHER Gender Identity Male 06/20/2021 2:35 PM JEWEL BEARING BROACHER Sexual Orientation Straight 06/20/2021 2: 35 PM JEWEL BEARING BROACHER documented as of this encounter Progress Notes * Angel Nelson MD - 05/13/2020 9:10 AM CDT Orthopaedic Surgery Clinic Post-Op Follow-Up DOS: 04/28/2020 Procedure: left CARPAL TUNNEL RELEASE, sutures removed from right palm - Left HPI: Now 15 days from left carpal tunnel release, 3 weeks out from right carpal tunnel release. Overall he has been doing well. He does report he has some pillar pain bilaterally left greater than right. Otherwise his preop symptoms have gotten better. He reports his numbness and tingling is gone. Physical Exam: Physical examination reveals a healed surgical incision of the left hand. Sutures were removed today in clinic. He does have some pillar pain on palpation of his hands bilaterally. 5/5 apb bilaterally Radiographic Evaluation: None taken today Assessment: Recovery well postoperatively Plan: Overall he has been doing well. We did refer explained that he could start doing scar massage for his right hand. We will see him back in a month to track his progress. Teaching Attestation: I have seen and evaluated Aleksandar bolanos. Please refer to the narrative dictated by Dr. Davian Edwards for details of the history and physical examination findings. The patient's diagnosis is: 2 weeks status post left carpal tunnel release, 1 month status post right carpal tunnel release The plan of care includes: The nature of the clinical findings reviewed in detail with patient. Hissymptoms are much improved. He has a little bit of pillar pain on the right, as well as on the left. We discussed this will likely improve. He has had complete resolution of his numbness. He is thrilled with this. Since he is doing so well, I will see him back on as-needed basis. Follow up: As needed Dr. Angel Nelson dictating using [employer] Ident Fluency Software. Bilingual Loan Processor variances may occur. Angel Nelson M.D., M.Sc. Rn Recovery, Department of Orthopaedic Surgery [facility] in [place] [address] [place], [place] [address] documented in this encounter Plan of Treatment Not on file documented as of this encounter Goals Goal Patient Goal Type Associated Problems Recent Progress Patient-Stated? Author CCM Chronic Pain Care Plan Chronic Care Management No change(07/21 7:32 AM JEWEL BEARING BROACHER) No Saran Quiñones, MABLE Note: Problem: Chronic Pain Goals: 1. Minimize further functional decline 2. Maximize quality of life 3. Control pain Strategies: - Activity/exercise program recommendation - Conservative stepwise pain medicine strategy with multi-disciplinary approach - Recommend healthy lifestyle strategies and compensatory methods as needed documented as of this encounter Visit Diagnoses Diagnosis Carpal tunnel syndrome, bilateral- Primary Carpal tunnel syndrome documented in this encounter Care Teams Barrel Bander Relationship Specialty Start Date End Date Roxanna Moreno MD PCP - General 10/21/16 documented as of this encounter
--- OUTSIDE RECORDS SUMMARY | 2024-08-03 14:55 | XMS_ITS | Encounter Summary ---
Author Organization [facility] Address [address] [place] [id number] Care Team Providers Care Subsea Engineer Name Role Phone Roxanna Moreno MD Primary Care Provider + Reason for Visit * Reason Comments Back Pain Encounter Details Date Type Department Care Team (Latest Contact Info) Description 05/05/2020 7:30 AM CDT - 05/05/2020 11:59 PM CDT Hospital Encounter [facility] [address] 1[address] [place] [id number] Dayanna Crump MD [address] [place] [address] Intercostal neuralgia (Primary Dx); Myofascial pain Discharge Disposition: Discharge to home or [...] on file Legal Sex Male 1:57 AM TRANSIT MECHANIC Gender Identity Male 06/20/2021 2:35 PM TRANSIT MECHANIC Sexual Orientation Straight 06/20/2021 2: 35 PM TRANSIT MECHANIC documented as of this encounter Last Filed Vital Signs Vital Sign Reading Time Taken Comments Blood Pressure 141/86 05/05/2020 8:21 AM CDT Pulse 65 05/05/2020 8:21 AM CDT Temperature 36.6 ??C (97.9 ??F) 05/05/2020 7:40 AM CD T Respiratory Rate 16 05/05/2020 8:21 AM CDT Oxygen Saturation 96% 05/05/2020 8:21 AM CDT Inhaled Oxygen Concentration - - Weight - - Height - - Body Mass Index - - documented in this encounter Discharge Instructions * Discharge Instructions* Tina Giraldo RN - 05/05/2020 8:24 AM CDT [facility] POST-PROCEDURE PATIENT EDUCATION The following procedure was performed in clinic today: Right T7, T8, T9 Intercostal nerve blocks You have received two medications in your [...] weakness or prolonged numbness in the extremities [facility] DISCHARGE INFORMATION PLAN: ??? Schedule next appointment with Dr. Crump in 4-6 weeks for Trigger Point Injections If you have any questions or concerns, please contact the Pain Management Center at [phone]. Calls are accepted Monday-Monday, 7:30am-4pm, excluding observed holidays. ??? Non-urgent matters: Select the nurse line option and leave a message ??? Urgent matters: Select the current patient scheduling option ??? Urgent/emergent matters occurring outside of business hours that can not wait until the office opens: Call 911 or go to the nearest Emergency Room. The [facility] is committed to providing your medication refills in a timely manner. When submitting a refill request, please note the following guidelines: ??? Federal guidelines recommend patients with chronic pain, for whom opioid medications are prescribed, be evaluated at least once every three months.The [facility] adheres to these guidelines and patients should plan to be seen at least every three months (or more frequently, as deemed appropriate by the prescribing provider). o Patients who are prescribed non-opioid medications should plan to be evaluated at least every 6 months (or more frequently, as deemed appropriate by the prescribing provider). o To allow timely scheduling of evaluations, please contact the office to schedule your appointment4-6 weeks in advance. ??? For all opioid/narcotic prescription refills, please contact the [facility] Management [facility] 3-5 days prior to the date of need. o Call [phone] and leave a message on the RN [...] on which the pharmacy filled the prescription. ??? All non-opioid/non-narcotic refill requests should be submitted to the pharmacy directly. The pharmacy will then contact the [facility] with the necessary information. documented in this encounter Medications at Time of Discharge irbesartan (AVAPRO) 300 mg tabletIndication s:hypertension Take 1 tablet (300 mg total) by mouth every morning 3 01/18/2018 sertraline (ZOLOFT) 50 mg tabletIndication s:Anxiety with [...] MG) BY MOUTH DAILY 30 capsule 1 03/20/2020 0 hydroCHLOROthiaz jamaica (HYDRODIURIL) 25 mg tabletIndication s:hypertension Take 25 mg by mouth every morning 2 01/18/2018 2 lidocaine (XYLOCAINE) 5 % ointment Apply topically 2 (two) times a day as needed for pain 08/29/2019 1 UNABLE TO FIND Med Name: medical marijuana 1 documented as of this encounter Discharge Disposition Disposition Code Departure Means Destination Discharge to home or self care documented in this encounter Progress Notes * Titi Ordoñez MD - 05/05/2020 7:30 AM CDT Progress Note Patient Name: Aleksandar Olsen : 1980 Today's Date: 05/05/2020 PCP: Roxanna Moreno MD Referring: No ref. provider found Interval History: Today 05/05/2020 SUBJECTIVE Chief complaint of Chief Complaint Patient presents with ??? Back Pain Patient is here for right T7, T8, T9 intercostal nerve blocks. He was last seen on 03/25/20 and had trigger point injections performed (right trapezius and thoracic paravertebral mm) with moderate relief lasting at least a few weeks. Pain Assessment Pain Score: 5 - Moderate pain Pain Location: Back (Lumbar) Pain Radiating Towards: around right side Pain Descriptors: Burning, Stabbing, Radiating Pain Frequency: Constant/continuous In addition to post thoracotomy pain with right intercostal neuralgia, he has chronic myofascial low back pain and neck pain with right radicular pain in the C6, C7 distribution however CT of the cervical spine was normal. Of note, he cannot have an MRI cervical spine because of his spinal cord stimulator. His pain regimen includes duloxetine, sertraline, TENS unit as well as [...] Authorizing Provider: Fernanda Pompa MD Notes: -- HYDROCODONE-ACETAMINOPHEN (NORCO) 5-325 MG PER TABLET Take 1 tablet by mouth every 4 (four) hours as needed for pain for up to 10 doses Authorizing Provider: Allan Ty MD Notes: -- IRBESARTAN (AVAPRO) 300 MG TABLET Take 300 mg by mouth every morning Authorizing Provider: Fernanda Pompa MD Notes: -- LIDOCAINE (XYLOCAINE) 5 % OINTMENT Apply topically 2 (two) times a day as needed for pain Authorizing Provider: Fernanda Pompa MD Notes: -- SERTRALINE (ZOLOFT) 50 MG TABLET Take 50 mg by mouth every morning Authorizing Provider: Fernanda Pompa MD Notes: -- TENS UNITS (TENS 502) DEVICE TENS unit with 2-4 electrodes Authorizing Provider: Dayanna Crump MD Notes: -- UNABLE TO FIND Med Name: medical marijuana Authorizing Provider: Fernanda Pompa MD Notes: -- VOLTAREN ARTHRITIS PAIN 1 % GEL APPLY 2 GMS TOPICALLY QID Authorizing Provider: Fernanda Pompa MD Notes: -- Modified Medications No medications on file Discontinued Medications No medications on file ROS Review of Systems Constitutional: Negative for chills and fever. HENT: Negative for ear discharge, sneezing and trouble swallowing. Eyes: Negative for pain and discharge. Respiratory: Negative for cough and shortness of breath. Cardiovascular: Negative for chest pain. Right Chest wall pain Gastrointestinal: Negative for nausea and vomiting. Endocrine: Negative for cold intolerance and heat intolerance. Genitourinary: Negative for difficulty urinating and dysuria. Musculoskeletal: Positive for back pain, myalgias and neck pain. Skin: Negative for color change and rash. Allergic/Immunologic: Negative for immunocompromised state. Neurological: Positive for numbness. Negative for dizziness and light-headedness. Hematological: Negative for adenopathy. Psychiatric/Behavioral: Negative for hallucinations. OBJECTIVE Vitals: Most Recent : Vitals BP 143/84 Pulse 74 Temp 97.9 ??F (36.6 ??C) Resp 14 SpO2 97% Physical Exam: Physical Exam Constitutional: Appearance: He is well-developed. HENT: Head: Normocephalic. Neck: Musculoskeletal: Neck supple. Pulmonary: Effort: Pulmonary effort is normal. Skin: General: Skin is dry. Neurological: Mental Status: He is alert and oriented to person, place, and time. Labs/Radiology/Diagnostic Review: No recent results to review ASSESSMENT Mr. Aleksandar Olsen is a 39 y.o. male who presents with Problem List Items Addressed This Visit Nervous Intercostal neuralgia - Primary Myofascial pain PLAN: 1. ??Intervention: - Right T7, T8, T9 intercostal nerve block today. - RTC for trigger point injections. - Continue [employer]tronic SCS use for back and right chest pain. Pt uses high frequency setting intermittently. 2. ??Medications: ?a. Opioids: ??none indicated at this time. ?b. Adjuvants: No changes today;??continue lidocaine cream, voltaren gel, duloxetine 60 mg daily, TENS unit?? 3. ??Imaging: Previously had a CT cervical spine at [place] and images were previously reviewed. Report scanned into media tab, dated 08/10/2018. 4. ??Referral: ??Continue PT/HEP ?? 5. ??Follow-up: 4-6 weeks for trigger point injections Titi Ordoñez MD Fellow, Pain Management [facility], [facility] 05/05/2020 8:24 AM ?? Cosigned by Dayanna Crump MD at 05/05/2020 8:38 AM CDT Associated attestation - Dayanna Crump MD - 05/05/2020 8:38 AM CDT I have seen and examined the patient on 05/05/20. I agree with the findings and plan of care as documented in the resident's/fellow's note.. documented in this encounter Miscellaneous Notes * Op Note - Daaynna Crump MD - 05/05/2020 7:30 AM CDT Patient ID Patient Name: Aleksandar Olsen : 1980 DOS: 05/05/2020 PCP: Roxanna Moreno MD Surgeon SURGEON: Dayanna Crump MD LADDER OPERATOR SURGEON: Titi Ordoñez MD Procedures NAME OF PROCEDURE: Intercostal nerve [...] Radiographic contrast (Omnipaque 300) was injected (volume 0.3 ml.) There was spread of contrast along [...] (including opening and closing). Dayanna Crump MD 05/05/2020 8:19 AM documented in this encounter Plan of Treatment Not on file documented as of this encounter Goals Goal Patient Goal Type Associated Problems Recent Progress Patient-Stated? Author CCM Chronic Pain Care Plan Chronic Care Management No change(07/21 7:32 AM TRANSIT MECHANIC) No Saran Quiñones RN Note: Problem: Chronic Pain Goals: 1. Minimize further functional decline 2. Maximize quality of life 3. Control pain Strategies: - Activity/exercise program recommendation - Conservative stepwise pain medicine strategy with multi-disciplinary approach - Recommend healthy lifestyle strategies and compensatory methods as needed documented as of this encounter Visit Diagnoses Diagnosis Intercostal neuralgia- Primary Other nerve root and plexus disorders Myofascial pain Unspecified myalgia and myositis documented in this encounter Administered Medications Inactive Administered Medications - up to 3 most recent administrations Medication Order MAR Action Action Date Dose Rate Site bupivacaine (MARCAINE) 0.25 % (2.5 mg/mL) preservative free injection As needed, Starting on Mon05/05/20 at 0806, Intra-Op Given 05/05/2020 8:06 AM CDT 8 mL iohexoL (OMNIPAQUE) 300 mg iodine/mL injection solution As needed, Starting on Mon05/05/20 at 0815, Intra-Op Given 05/05/2020 8:15 AM CDT 1.5 mL lidocaine PF (XYLOCAINE) 10 mg/mL (1 %) preservative free injection As needed, Starting on Mon05/05/20 at 0815, Intra-Op Given 05/05/2020 8:15 AM CDT 7 mL methylPREDNISolone acetate (DEPO-medrol) injection As needed, Starting on Mon05/05/20 at 0806, Intra-Op Given 05/05/2020 8:06 AM CDT 40 mg documented in this encounter Discontinued Medications Medication Sig Discontinue Reason Start Date End Da te HYDROcodone-acetaminophe n (NORCO) 5-325 mg per tabletIndications:Pain Take 1 tablet by mouth every 4 (four) hours as needed for pain for up to 10 doses Therapy completed 04/27/2020 05/05/2020 documented as of this encounter Historical Medications * This list may reflect changes made after this encounter. Voltaren Arthritis Pain 1 % gel APPLY 2 GMS TOPICALLY QID 04/26/2020 added in this encounter Care Teams Subsea Engineer Relationship Specialty Start Date End Date Roxanna Moreno MD PCP - General 10/21/16 documented as of this encounter
--- OUTSIDE RECORDS SUMMARY | 2024-08-03 14:55 | XMS_ITS | Encounter Summary ---
Author Organization [facility] Healthcare Address [address] [place] [address] Care Team Providers Care Core Java Engineer Name Role Phone Roxanna Moreno MD Primary Care Provider + Encounter Details Date Type Department Care Team (Late st Contact Info) Description 04/28/2020 7:30 AM CDT - 04/28/2020 8:00 AM T Surgery [facility] [address] [place] [id number] Angel Nelson MD [address] [facility] 6A[address]6B[address]12[address] [place] [address] left CARPAL TUNNEL RELEASE, sutures removed from right palm Surgery Details Date/Time Status Location OR Service Patient Class Case Class Case Type Trauma Case? 04/28/2020 7:[address] [facility] OPERATING ROOM OR 4 Orthopaedics Outpatient Elective Panel 1 Procedure LRB Anes Op Region Wound Class Comments left CARPAL TUNNEL RELEASE, sutures removed from right palm Left Choice Wrist Class I - Clean Surgeon Surgeon Role Service Panel Angel Nelson MD Primary Orthopaedics 1 Allan Ty MD Resident - Assisting Orthopae dics 1 Special Needs Pt. has neurostimulator - T-9 - Will bring mins documented in this encounter Social History Tobacco Use Types Packs/Day Years Used Date Smoking Tobacco: Never Smokeless Tobacco: Former Quit: 05/2011 Alcohol Use Standard Drinks/Week Comments Yes 0 (1 standard drink = 0.6 oz pur e alcohol) RARE 3-4 q year Sex and Gender Information Value Date Recorded Sex Assigned at Not on file Legal Sex Male 1:57 AM AUTOMATIC THREAD WINDER Gender Identity Male 06/20/2021 2:35 PM AUTOMATIC THREAD WINDER Sexual Orientation Straight 06/20/2021 2: 35 PM AUTOMATIC THREAD WINDER documented as of this encounter Last Filed Vital Signs Vital Sign Reading Time Taken Comments Blood Pressure 140/87 04/28/2020 7:55 AM CDT Pulse 61 04/28/2020 8:00 AM CDT Temperature 36.5 ??C (97.7 ??F) 04/28/2020 7:55 AM CD T Respiratory Rate 18 04/28/2020 8:00 AM CDT Oxygen Saturation 93% 04/28/2020 8:00 AM CDT Inhaled Oxygen Concentration - - Weight 113.4 kg (249 lb 14.4 oz) 04/28/2020 5:46 AM CDT Height 177.8 cm (5' 10 ) 04/28/2020 5:46 AM CDT Body Mass Index 35.86 04/28/2020 5:46 AM CDT documented in this encounter Discharge Instructions * Discharge Instructions* Allan Ty MD - 04/27/2020 8:44 PM CDT POSTOPERA/TIVE HAND SURGERY PATIENT INSTRUCTIONS Attending Surgeon: Angel Nelson M.D. Surgery Date: 04/28/2020 MEDICATIONS: 1. Resume all previous home medications at the previous prescribed dose and frequency 2. Start taking the following pain medications on an as-needed basis as prescribed GENERAL INSTRUCTIONS: 1. Keep your surgical site elevated above your heart for at least 5-7 days or longer to prevent swelling. This will improve your comfort and your overall recovery following surgery 2. Be alert for signs of infection including redness, streaking, odor, fever or chills. Be alert for excessive pain or bleeding and notify your surgeon immediately. DIET AND COMFORT: 1. Return to your regular diet as tolerated. Begin with light or bland foods. Drink plenty of fluids. 2. Take your pain medication as prescribed. Take pain medication with food to minimize nausea. 3. Instead of the prescribed pain medication, you may take [id number] pain relievers such as ibuprofen if adequate pain relief is obtained. 4. Do not drink alcohol or drive while using prescription pain medications ACTIVITY: 1. You are advised to go home directly from the hospital or surgical center. Restrict your activities. 2. Gently move your fingers which are free within the splint on an hourly basis to prevent stiffness and swelling 3. Do not push or pull on your operative fingers unless instructed to do so. 4. Do not drive for 24 hr after surgery or while using prescription pain medications 5. No lifting or pushing or pulling greater than 1 pound with the operative extremity until seen at the next postoperative visit. 6. Return to work will be determined at the next clinic visit. The patient will be restricted from all work activities from the time of surgery. DRESSING CARE 1. You may re-wrap the outer dressing as needed for comfort being careful not to disturb the dressing from surgery. 2. The patient should continue to wear the postoperative splint/dressing for 5 days. After that, you may shower and let water run over the incision, but do not soak or submerge it for 1 month. FOLLOWUP INSTRUCTIONS: 1. Follow up in the clinic within 14 days. The office phone number for Dr. Nelson???s office is [phone]. 2. The general scheduling number is [phone]. 3. Contact your physician's office during office hours or the [facility] at . The orthopedic resident on-call can be reached through this method. For medical emergencies call 911. documented in this encounter Medications at Time [...] by mouth every morning 2 01/18/2018 2 HYDROcodone-acet aminophen (NORCO) 5-325 mg per tabletIndication s:Pain Take 1 tablet by mouth every 4 (four) hours as needed for pain for up to 10 doses 10 tablet 04/27/2020 0 lidocaine (XYLOCAINE) 5 % ointment Apply topically 2 (two) times a day as needed for pain 08/29/2019 1 UNABLE TO FIND Med Name: medical marijuana 1 documented as of this encounter Ordered Prescriptions Prescription Sig Dispense Quantity Refills Last Filled Start Date End Date HYDROcodone-acetam inophen (NORCO) 5-325 mg per tabletIndications: Pain Take 1 tablet by mouth every 4 (four) hours as needed for pain for up to 10 doses 10 tablet 04/27/2020 05/05/2020 scopolamine 1 mg over 3 days patch 3 dayIndications:Pre vention of Post-Operative Nausea and Vomiting Place 1 patch on the skin once for 1 dose 1 patch 04/21/2020 04/21/2020 documented in this encounter Discharge Disposition Disposition Code Departure Means Destination Discharge to home or self care documented in this encounter H&P Notes * Shirin Bales NP - 04/28/2020 6:02 AM CDT Outpatient Pre-Procedure History and Physical Subjective Patient is a 39 y.o. male with chief complaint of left hand pain. Indication For Procedure: Pre-op Diagnosis * Carpal tunnel syndrome of left wrist [G56.02] Planned Procedure left CARPAL TUNNEL RELEASE (L) HPI: Past Medical History: Diagnosis Date ??? Anxiety ??? Back pain mid back ??? Hyperlipidemia ??? Hypertension ??? Medical marijuana use ??? Neck pain ??? Osteoid osteoma T9 - removed ??? Pain management ??? PONV (postoperative nausea and vomiting) Past Surgical History: Procedure Laterality Date ??? ANTERIOR CRUCIATE LIGAMENT REPAIR Right ACL Reconstruction, ? hardware ??? BACK SURGERY Back Surgery - T9 Tumor excision. 2006. (Added by TW Conv) ??? KNEE ARTHROSCOPY W/ LATERAL RELEASE Right ??? NERVE BLOCK Nerve Block - (Added by TW Conv), spine multi ??? SHOULDER SURGERY Rt Shoulder Dislocation surgery ??? SPINAL CORD STIMULATOR IMPLANT Spinal Surgery Neurostimulator Implants - 2010 (Added by ERICA Conv), battery pack right lower back Facility-Administered Medications Prior to Admission Medication Dose Route Frequency Provider Last Rate Last Dose ??? perflutren lipid (DEFINITY) 1.5 mL in sodium chloride 0.9% 10 mL syringe 1- 10 mL intravenous Once in imaging Provider Scanning Medications Prior to Admission Medication Sig Dispense Refill Last Dose ??? atorvastatin (LIPITOR) 20 mg tablet Take 20 mg by mouth every morning 04/27/2020 at Unknown time ??? DULoxetine DR (CYMBALTA) 60 mg capsule TAKE 1 CAPSULE(60 MG) BY MOUTH DAILY (Patient taking differently: Take 60 mg by mouth every morning ) 30 capsule 1 04/27/2020 at Unknown time ??? hydroCHLOROthiazide (HYDRODIURIL) 25 mg tablet Take 25 mg by mouth every morning 2 Past Week atUnknown time ??? irbesartan (AVAPRO) 300 mg tablet Take 300 mg by mouth every morning 3 Past Week at Unknown time ??? lidocaine (XYLOCAINE) 5 % ointment Apply topically 2 (two) times a day as needed for pain 04/27/2020 at Unknown time ??? sertraline (ZOLOFT) 50 mg tablet Take 50 mg by mouth every morning 04/27/2020 at Unknown time ??? TENS units (TENS 502) device TENS unit with 2-4 electrodes 1 Device 0 04/27/2020 at Unknown time ??? UNABLE TO FIND Med Name: medical marijuana Past Week at Unknown time No Known Allergies Social History Tobacco Use ??? Smoking status: Never Smoker ??? Smokeless tobacco: Former User Substance Use Topics ??? Alcohol use: Yes Comment: RARE 3-4 q year Social History Substance and Sexual Activity Drug Use Yes ??? Frequency: 5.0 times per week ??? Types: Medical marijuana Comment: LAST USED Vitals: 04/17/20 1335 04/28/20 0546 04/28/20 0600 04/28/20 0605 BP: 146/80 Pulse: 56 57 Temp: 36.3 ??C (97.3 ??F) TempSrc: Temporal SpO2: 96% 96% Weight: 112.9 kg (248 lb 14.4 oz) 113.4 kg (249 lb 14.4 oz) Height: 180.3 cm (5' 10.98 ) 177.8 cm (5' 10 ) Review of Systems: Review of systems per HPI and otherwise all other systems are negative Physical exam: Lungs: clear to auscultation bilaterally Heart: regular rate and rhythm, S1, S2 normal, no murmur, click, rub or gallop Neurologic: Alert and oriented x4, grossly intact Shirin Bales NP Cosigned by Angel Nelson MD at 04/28/2020 7:21 AM CDT documented in this encounter Miscellaneous Notes * Perioperative Nursing Note - Francisca Schuster RN - 04/28/2020 8:36 AM CDT Pt's arrived. Gave discharge instructions to pt and his . To be d/c'd home with instructions, prescription and ice pack. * Perioperative Nursing Note - Francisca Schuster RN - 04/28/2020 8:00 AM CDT Called pt's to pickling solution maker pt and go over d/c instructions. * Perioperative Nursing Note - Francisca Schuster RN - 04/28/2020 7:54 AM CDT Pt to recovery. Bed in lowest position, locked and both side rails up. Pt belongings at bedside. * Op Note - Angel Nelson MD - 04/28/2020 7:30 AM CDT Date of Surgery: .04/28/20 Pre-operative Diagnosis: 1. Left carpal tunnel release Post-operative diagnosis: 1. Same as above Operative Procedure: 1. Open left carpal tunnel release Attending Surgeon: Angel Nelson MD, M.Sc. Press Clipper: 1. Carlos Ty MD 2. Roddy Hart, Medical student Anesthesia: Choice Blood loss: No blood loss documented. Tourniquet Time: Total Tourniquet Time Documented: Arm - Lower (Left) - 17 minutes Total: Arm - Lower (Left) - 17 minutes Findings: Compression median nerve at left carpal tunnel Specimen: No specimens collected during this procedure. Complications: None Condition: The patient was transferred to the PACU in good condition. Indications: This is a very pleasant 39-year-old male with a history of bilateral carpal tunnel syndrome. He has failed non operative treatment. He underwent right carpal tunnel release previously, had a good result from this. He returns today for suture removal from the right side and left carpal tunnel release. Risks, benefits alternatives were discussed in detail. Informed consent was obtained. The risks discussed included bleeding, infection, damage to blood vessels/nerves/tendons/bone, chronic pain, stiffness, and need for additional surgery. The patient had a good understanding of this and elected to proceed. Informed consent was obtained. Procedure: Site Marking: The operative site was marked in the holding area. The consent was verified and all questions were answered. Time Out Procedure: A preprocedural pause was conducted to verify correct patient side, site, procedure, allergies, antibiotics and post-operative plan. Operative Course: Informed consent was obtained prior to the surgery and the patient was brought to the operating room. The patient was positioned supine on the OR table with use of a hand table. Anesthesia was induced as noted above. A preprocedural pause was conducted to verify correct patient side, site and procedure as well as confirm the wound class, and a nonsterile tourniquet was placed high above the elbow. The arm was elevated and exsanguinated with an Esmarch bandage, tourniquet inflated to 250 mm Hg. A Sander block was performed by our anesthesia colleagues. The arm was then prepped and draped in the usual sterile fashion. A 3-4 cm incision was made overlying the transverse carpal ligament in line with the radial border of the left ring finger. Dissection was made through skin and subcutaneous tissue. The palmar fasciawas sharply divided, and a self retaining retractor was introduced into the wound. The distal edge of the transverse carpal ligament was visualized, as was the superficial palmar arch. Hand held retractors were introduced into the wound and the transverse carpal ligament was divided sharply from distal to proximal under direct visualization, using a combination of a scalpel blade and scissors andleaving the most distal aspect of the ligament intact. Once the ligament was divided, the distal portion of antebrachial fascia was incised under direct visualization. Attention was then turned distally, and with the superficial palmar arch visualized, the most distal aspect of the ligament was completely released. Complete release was confirmed by inspection of the distal ligament. Additional fibers of the palmar fascia were divided with care taken to avoid injury to the deep structures. The median nerve was inspected and noted to be intact. 9 cc of 0.5% bupivacaine was injected into the area around the wound. The tourniquet was deflated and meticulous hemostasis was obtained with bipolar electrocautery. The wound was copiously irrigated. Incision was closed with interrupted 4-0 Nylon sutures. A sterile soft dressing was then applied. The patient was awoken without difficulty, and transported to the recovery room in stable condition. All sponge,needle,and instrument count was correct at the end of the case. Drains: Active and Removed None Counts: All needle, sponge, and instrument counts were correct at the end of the case. Attending participation: I was present and scrubbed for all crtical portions of the case, I was immediately available for the remainder of the procedure. Post-operative plan The intraoperative findings were discussed in detail with the patient's family at the conclusion ofthe procedure. The patient will remain in the postoperative dressing for 5 days, after which time it may be removed. The patient is cautioned not to lift anything greater than 2 lb with the operativeextremity. I will see them back in clinic in 2 weeks for wound evaluation and suture removal. This is a low risk procedure, the patient is ambulatory, therefore chemical DVT prophylaxis is not indicated. * Brief Op Note - Allan Ty MD - 04/28/2020 7:30 AM CDT Operative Progress Note Surgical Team: Surgeon(s) and Role: * Angel Nelson MD - Primary * Allan Ty MD - Resident - Assisting Anesthesiologist: Brendan Mathis MD STUD MASTER/MISTRESS: Sondra Villalpando CRNA Band Aid Machine Operator: Tish Solo RN Scrub: Neha Christie RN DATE OF SURGERY : 04/28/2020 Preoperative Diagnosis: Pre-op Diagnosis * Carpal tunnel syndrome of left wrist [G56.02] Postoperative Diagnosis: Post-op Diagnosis * Carpal tunnel syndrome of left wrist [G56.02] Procedure(s): Procedure(s) (LRB): left CARPAL TUNNEL RELEASE, sutures removed from right palm (Left) Operative Findings: MN Compression Estimated Blood Loss: No blood loss documented. Intraoperative Fluids: Per anesthesia Specimens: No specimen collected in procedure Implants: Nothing was implanted during the procedure Blood/Blood Products Transfused: 0 mls Complications: None Condition on Discharge from the operating room was stable Carlos Ty MD Date: 04/28/2020 Time: 7:50 AM Cosigned by Angel Nelson MD at 05/04/2020 7:32 AM CDT * Perioperative Nursing Note - Naila Katz RN - 04/28/2020 6:35 AM CDT Pt's , Jacquelyn, will be with patient and care for patient for the first 24 hours post-op.Pt in bed in lowest position locked with both side rails up, nonslip socks applied, curtain open and patientnear nurses station. Pt will not be left behind curtain alone. Pt assisted in all cares in recovery. Alejandro score based on pre-op condition. * Pre-Procedure Instructions - Naila Griffin RN - 04/27/2020 12:36 PM CDT We are pleased that you and your doctor have chosen [facility] for your surgery. We hope the following information will help make your visit a pleasant one. The name of the building is [facility] [place] in [place]. Directions to facility (address is [address] [address] When you enter the building, look directly to your left, you will see 2 glass double doors. These double doors say [address]. Go through those double doors and check in with the mental health aides teacher. Bring glass/contact case Pt. Has braces/perm. Retainer- upper lower Bring pillows, leave in car. Patient has ice for home. Pt. To be NPO after Midnight, unless instructed to take medication by PROFESSOR OF LEGAL STUDIES at CPAP. No gum, no mints,no candy, no cough drops, CBD oil, no marijuana, no Chewing tobacco, or vaping. No ice or water. You may brush your teeth, just make sure you spit it all out. Pt's. Amina [phone] will be with patient and care for patient for the first 24 hours post-op. Pt. Instructed to arrive at 0530 for 0730 procedure. Procedure is scheduled for .5 hour(s). Explained to patient, if you develop any symptoms of fever, chills, headache, cough, sore throat, body aches or is exposed to anyone that has been diagnosed, tested or quarantined for the COVID-19 you will not be allowed to enter the building or to have your surgery per anesthesia's guidelines. Explained to patient that all patient's and visitor's will be screened at the front door upon entering the building. Explained to patient to please call the morning of surgery, any time after 5:30 a.m. if you or your caregiver develops any of these symptoms or is exposed to anyone that has been diagnosed, tested or quarantined for COVID-19. Pt. Reports understanding. Once your physician has completed your surgery, he will call your caregiver to notify them your surgery is complete and you are heading to the Recovery room. Your caregiver will not be called back into the building until you are awake and ready for discharge. The nurse who is caring for you will call your caregiver to come back into the building for discharge instructions. Explained to patient that the cafe is open. Explained to patient if their caregiver would like anything to eat or drink they may bring their own. * Pre-Procedure Instructions - Shahrzad Moreno NP - 04/21/2020 12:22 PM CDT Center for Preoperative Assessment and Planning [facility] Location: [facility] The night before your surgery: * Do not eat or drink anything after midnight. This includes candy, mint, gums, chewable antacids (TUMS, Rolaids) and cough drops * Do not smoke after midnight the night before surgery. It is best to stop smoking now to improve your health. The morning of your surgery: * You may brush your teeth and rinse your mouth out. * Do not wear jewelry, body piercings, makeup, hairpins, false eyelashes or contact lenses to the hospital. * Leave any valuables at home or with your family. You may want to bring a credit card if you want to use our Mobile Pharmacy for your discharge medications. * If you have an implantable device with a remote, bring the remote with you on the day of surgery. Outpatient Surgery: * You must have a responsible adult drive you home and stay with you for 24 hours after your surgery * You cannot be alone at home or in a hotel * Please call your surgeon's office if you do not have someone to drive you home and/or stay with you after surgery * Please bring any items you may need to spend the night in the hospital. Sometimes patients need to be cared for in the hospital overnight. Instructions For Your Medications: Pre-Surgery Instructions: Medication Instructions ??? atorvastatin (LIPITOR) 20 mg tablet Take morning of surgery ??? DULoxetine DR (CYMBALTA) 60 mg capsule Take morning of surgery ??? hydroCHLOROthiazide (HYDRODIURIL) 25 mg tablet Don't take on day of surgery ??? irbesartan (AVAPRO) 300 mg tablet Don't take on day of surgery ??? lidocaine (XYLOCAINE) 5 % ointment Don't take on day of surgery ??? sertraline (ZOLOFT) 50 mg tablet Take morning of surgery ??? TENS units (TENS 502) device Use as directed - please bring remote ??? Medical Marijuana Don't take on day of surgery General Instructions For Medications: ?? Stop all of these medications 7-14 days prior to your surgery: Vitamin E, Herbal medicines, DietPills ?? If you have pain, you may take tylenol (acetaminophen). Do not take more than 6 tablets or 3000 mg (3 g) within a 24 period. Call your surgeon and the CPAP clinic if any of the following happens before surgery: ?? Any changes in your health ?? You have a fever ?? You have any signs of an infection (chest, urinary tract or tooth) ?? You have been to the Emergency Room or were in the hospital ?? You have started taking any new medications ?? You have questions about a bowel prep or special diet before surgery * Perioperative Nursing Note - Donald Trerell RN - 04/17/2020 1:44 PM CDT Center for Preoperative Assessment and Planning Perioperative Nursing Note Telephone Preoperative Evaluation ([facility]) - TELEPHONE ONLY, NO PHYSICAL EXAM Date: 04/17/20 Vitals: 04/17/20 1335 Weight: 112.9 kg (248 lb 14.4 oz) Height: 180.3 cm (5' 10.98 ) CHEST CIRCUMFERENCE: Social History Tobacco Use Smoking Status Never Smoker Smokeless Tobacco Former User Substance and Sexual Activity Alcohol Use Yes Comment: RARE Substance and Sexual Activity Drug Use Yes ??? Frequency: 5.0 times per week ??? Types: Medical marijuana Comment: LAST USED 04/16/2020 Current Facility-Administered Medications for the 04/28/20 encounter (Hospital Encounter) with DavidM. Leslie MD Medication Dose Route Frequency Provider Last Rate Last Dose ??? perflutren lipid (DEFINITY) 1.5 mL in sodium chloride 0.9% 10 mL syringe 1- 10 mL intravenous Once in imaging Provider Scanning Outpatient Medications Marked as Taking for the 04/28/20 encounter (Hospital Encounter) with Angel Nelson MD Medication Sig Dispense Refill ??? atorvastatin (LIPITOR) 20 mg tablet Take 20 mg by mouth every morning ??? DULoxetine DR (CYMBALTA) 60 mg capsule TAKE 1 CAPSULE(60 MG) BY MOUTH DAILY (Patient taking differently: Take 60 mg by mouth every morning ) 30 capsule 1 ??? hydroCHLOROthiazide (HYDRODIURIL) 25 mg tablet Take 25 mg by mouth every morning 2 ??? irbesartan (AVAPRO) 300 mg tablet Take 300 mg by mouth every morning 3 ??? lidocaine (XYLOCAINE) 5 % ointment Apply topically 2 (two) times a day as needed for pain ??? sertraline (ZOLOFT) 50 mg tablet Take 50 mg by mouth every morning ??? TENS units (TENS 502) device TENS unit with 2-4 electrodes 1 Device 0 ??? UNABLE TO FIND Med Name: medical marijuana ??? [DISCONTINUED] HYDROcodone-acetaminophen (NORCO) 5-325 mg per tablet Take 1 tablet by mouth every 4 (four) hours as needed for pain for up to 10 doses 10 tablet 0 Implants Spinal Cord Stimulator Spinal Cord Stimulator-05/17/2011 - Implanted [place] Lather: Iotera As of 05/17/2018 Status: Implanted SKIN Piercings Remaining: No Wound (LDAs) Type of Wound (LDA): Surgical site SCREENINGS STOP-Bang Total Score: 2 [place] Risk Score (Retired): 15 Venkat index score: 95 Is someone currently physically or emotionally hurting you or your family?: Denies NUTRITION PATIENT CARE PLANNING Advance Directives (For Healthcare) Advance Directive: Patient does not have advance directive Communication/Gravel Hauler Needs Communication Needs: None Patient's Preferred Language: Bolivian Is an data storage specialist needed? : No Assistive Devices/DME: None Discharge Planning Type of Residence: Private residence Living Arrangements: Spouse/significant other Support Systems: Spouse/significant other Patient expects to be discharged to:: Private residence COVID Screening Covid-19 Screening In the last 10 days have you had any new or worsening cough, SOB, fever (>=100F), body aches, loss of taste or smell, diarrhea or vomiting, or sore throat: No Have you had close contact with anyone with confirmed or suspected COVID-19 in the past 3 weeks?: No Do you live in or work in a congregate living facility (ex. assisted living/chcf facility, skilled nursing, nursing home)?: No Have you previously tested positive for COVID-19? No TESTING PLAN-See Instructions for plan We recommend you Self-Isolate after COVID Testing: Stay at home, if possible until your surgery date. Maintain a 6 foot distance from other people (social distancing). Avoid touching your eyes, nose and mouth with unwashed hands. Wash your hands often with soap and water for at least 20 seconds. Use an alcohol- based hand figure skater that contains at least 60% alcohol if soap and water are not available. ADDITIONAL COMMENTS/ FOLLOW UP * Pre-Procedure Instructions - Donald Terrell RN - 04/17/2020 1:43 PM CDT PRE-SURGICAL INSTRUCTIONS ??? General Information ?? Surgery location provided to patient. ?? Arrival time and surgical time will be provided by your surgeon. ?? Wear something clean, loose, comfortable and easy to get in and out of. ?? Leave your valuables and any jewelry at home (No metal or piercings are allowed in the operatingroom) ?? Bring your insurance card, a photo ID (like a Teaching Manager's license) and a method of payment for any insurance copay, deductible, or copay for discharge medications. ?? Bring a complete, up to date list of all of your medications including any over the counter medications or supplements you may take. ? How To Prepare Your Skin For Surgery Antiseptic/antibacterial soap will decrease the amount of germs on your skin. It is important to minimize the risk of getting an infection by doing the following: ?? Change all the linens on the bed the night before surgery so you are sleeping on clean fresh sheets and pillowcases. ?? Shower the evening before and the morning of surgery with an antibacterial soap such as Dial or a surgical soap known as chlorhexidine (Hibiclens). You can purchase this soap at any pharmacy or department store or come by our CPAP clinic and we will give it to you free of charge. Do not use thissoap on your face or hair. ?? Wash your hair and face with your regular shampoo (no conditioners) and facial cleanser. ?? Take a shower using ?? cup (2 oz.) of antiseptic soap applied to a clean fresh washcloth. Scrub your entire body from the neck down. If you can't reach the surgical site, such as your back, have someone help you with your shower. Step out of the water and leave soap on your skin for 2 minutes prior to rinsing off. Rinse thoroughly and dry yourself off with a clean fresh dry towel. ?? Wear clean clothes or pajamas to sleep in and on morning of surgery. ?? Nothing extra on the skin or hair such as deodorant, makeup, hair products, lotions, powders, Vaseline, creams, or perfumes the evening before and the morning of surgery. ?? The morning of the surgery repeat the shower process with the remaining ?? cup (2 oz.) of surgical scrub using another fresh wash cloth and towel. ?? Do not shave the morning of surgery. ?? REMEMBER no deodorant, make-up, lotions, powders, creams, Vaseline, oils, conditioners or hair products the morning of the surgery. COVID TESTING PLAN COVID Test Request Placed in Epic to [facility]. Test to be performed on 04/25/2020 [facility]. If you need to reschedule your COVID test to a different location or if your surgery gets rescheduled, you MUST call [phone] Monday-Monday 8am-4:30pm to get your COVID testing rescheduled or your lab order will not be available at Testing Sites. COVID Testing is only valid for up to 96 hours prior to surgery date, unless otherwise specified. If you are unable to reach staff at the above phone number, please call the CPAP Staff at [phone]. This number cannot order a lab test, but can attempt to contact the above number/staff to assist you. We are available Monday-Monday 8am-4:30pm . We recommend you Self-Isolate after COVID Testing: Stay at home, if possible until your surgery date. Maintain a 6 foot distance from other people (social distancing). Avoid touching your eyes, nose and mouth with unwashed hands. Wash your hands often with soap and water for at least 20 seconds. Use an alcohol- based hand figure skater that contains at least 60% alcohol if soap and water are not available. All visitors/patients are being asked to wear a clean mask when entering the hospital. COVID 19 Updates & Visitor Policy: Please access [email or web address] for the most updated information. Surgery Times: ??? For patients having surgery @ [facility], if your surgeon's office has not notified you of your surgery time by NOON THE BUSINESS DAY BEFORE your surgery, please call the surgery center at [phone]. documented in this encounter Plan of Treatment Not on file documented as of this encounter Goals Goal Patient Goal Type Associated Problems Recent Progress Patient-Stated? Author CCM Chronic Pain Care Plan Chronic Care Management No change(07/21 7:32 AM AUTOMATIC THREAD WINDER) No Saran Quiñones, MABLE Note: Problem: Chronic Pain Goals: 1. Minimize further functional decline 2. Maximize quality of life 3. Control pain Strategies: - Activity/exercise program recommendation - Conservative stepwise pain medicine strategy with multi-disciplinary approach - Recommend healthy lifestyle strategies and compensatory methods as needed documented as of this encounter Procedures Procedure Name Priority Date/Time Associated Diagnosis Comments RELEASE CARPAL TUNNEL 04/28/2020 7:21 AM CDT Carpal tunnel syndrome of left wrist Special Needs Pt. has neurostimulator - T-9 - Will bring [id number] mins POCT PREOP SCREEN ([id number]) Routine 04/28/2020 6:24 AM CDT documented in this encounter Results * POCT Preop screen ([id number]-[id number]) (04/28/2020 6:24 AM CDT) Pathologist [facility] K POC 3.7 3.3 - 4.9 mmol/L [facility] Comment: Interpretive Data Unable to assess hemolysis. ??Invitro hemolysis causes falsely elevated potassium. Current Interpretive Data was last revised on 2020. Blood specimen (specimen) 04/28/2020 6:24 AM CDT 04/28/2020 6:24 AM CDT Angel Nelson MD LAB POCT ORDERABLES - SELENE CE Final Result MIYA BENITEZ [facility] Department [place] [address] documented in this encounter Visit Diagnoses Diagnosis Carpal tunnel syndrome of left wrist- Primary Carpal tunnel syndrome of left wrist documented in this encounter Admitting Diagnoses Diagnosis Carpal tunnel syndrome of left wrist documented in this encounter Administered Medications Inactive Administered Medications - up to 3 most recent administrations Medication Order MAR Action Action Date Dose Rate Site bupivacaine (MARCAINE) 0.5 % (5 mg/mL) preservative free injection As needed, Starting on Mon04/28/20 at 0741, Intra-Op Given 04/28/2020 7:41 AM CDT 9 mL Surgical Site Lactated Ringer's (LR) infusion 30 mL/hr, intravenous, Continuous, Starting on Mon04/28/20 at 0630, Pre-Op, Use a 500 ml bag for End Stage Renal Disease Patients New Bag 04/28/2020 6:42 AM CDT 30 mL/hr 30 mL/hr sodium chloride 0.9 % irrigation As needed, Starting on Mon04/28/20 at 0735, Intra-Op Given 04/28/2020 7:35 AM CDT 500 mL Surgical Site documented in this encounter Discontinued Medications Medication Sig Discontinue Reason Start Date End Da te HYDROcodone-acetaminophe n (NORCO) 5-325 mg per tabletIndications:Pain Take 1 tablet by mouth every 4 (four) hours as needed for pain for up to 10 doses 04/14/2020 04/17/2020 documented as of this encounter Active and Recently Administered Medications Times are shown in CDT. Scheduled Medication Order 04/26/2020 04/27/2020 04/28/2020 scopolamine patch 72 hour 1 patch 1 patch, transdermal, Administer over 72 Hours, Once, On Mon04/28/20 at 0630, For 1 dose, Pre-Op, Apply to beach-chair position shoulder surgery patients, and to patients with a history of PONV and/or Motion Sickness. Do NOT administer to patients with a history of BPH or Glaucoma. Consult Anesthesiologist with any questions. In case of urinary retention, remove patch immediately and clean patch site with alcohol., Indications: Motion Sickness, Prevention of Motion Sickness, Prevention of Post-Operative Nausea and Vomiting 0630 (Due) Continuous Medication Order 04/26/2020 04/27/2020 04/28/2020 Lactated Ringer's (LR) infusion (CANCELED) 30 mL/hr, intravenous, Continuous, Starting on Mon04/28/20 at 0630, Pre-Op, Use a 500 ml bag for End Stage Renal Disease Patients 0642 (New Bag - Prov ider: Naila Katz RN)0743 (Anesthesia Volume Adjustment - Provider: Sondra Villalpando CRNA)0753 (Stopped - Provider: Francisca Schuster, MABLE) Lactated Ringer's (LR) infusion 125 mL/hr, intravenous, Continuous, Starting on Mon04/28/20 at 0800, Phase I 0754 (Continued from OR - Provider: Francisca Schuster RN)0815 (Stopped - Provider: Francisca Schuster, MABLE) PRN Medication Order 04/26/2020 04/27/2020 04/28/2020 acetaminophen (TYLENOL) tablet 500 mg 500 mg, oral, As needed, headaches, other, Breakthrough Pain and Supplement to other pain meds, Starting on Mon04/28/20 at 0725, For 2 doses, Phase I, When able to tolerate PO after consulting with Anesthesiologist., Indications: Pain bupivacaine (MARCAINE) 0.5 % (5 mg/mL) preservative free injection (CANCELED) As needed, Starting on Mon04/28/20 at 0741, Intra-Op 0741 (Given - Provid er: Angel Nelson MD) diphenhydrAMINE (BENADRYL) injection 12.5 mg 12.5 mg, intravenous, Administer over 1 Minutes, Every 5 min PRN, itching, other, For Nausea, administer 25 mg IV., Starting on Mon04/28/20 at 0725, For 4 doses, Phase I, Max cumulative dose 50 mg., Indications: Itching fentaNYL (SUBLIMAZE) preservative free syringe 25 mcg 25 mcg, intravenous, Every 5 min PRN, 1st line for pain, uncontrolled pain on PACU admission for outpatients, Starting on Mon04/28/20 at 0725, For 4 doses, Phase I, Use as 1st line for outpatients, dose not to exceed 100 mics. Then proceed to second line at [facility] after consulting anestheiologist, Indications: Pain HYDROcodone-acetaminophen (NORCO) 5-325 mg per tablet 1 tablet 1 tablet, oral, Every 20 min PRN, 3rd line for pain, breakthrough pain, May give TWO doses at the same time for severe pain after consulting with Anesthesiologist, Starting on Mon04/28/20 at 0725, For 2 doses, Phase I, When able to tolerate PO., Indications: Pain HYDROmorphone (DILAUDID) injection 0.2 mg 0.2 mg, intravenous, Administer over 2 Minutes, Every 5 min PRN, 2nd line for pain, Use as 1st line pain med for patients at [facility]. Use as 2nd line at OC after consulting with anesthesiologist., Starting on Mon04/28/20 at 0725, Phase I, Notify Anesthesiologist if total PACU dose reaches 2 mg for inpatients and 1 mg total for outpatients, and pain score 5/10 or more., Indications: Pain labetaloL (NORMODYNE,TRANDATE) injection 5 mg 5 mg, intravenous, Every 5 min PRN, high blood pressure, Starting on Mon04/28/20 at 0725, For 4 doses, Phase I, Max cumulative dose 20 mg. Dose if systolic blood pressure greater than 180 AND HR greater than 70. lidocaine (XYLOCAINE) 10 mg/mL (1 %) injection 2-10 mg 2-10 mg (0.2-1 mL), other, Once as needed, pain with IV placement, Starting on Mon04/28/20 at 0551, For 1 dose, Pre-Op, Administer volume needed to infiltrate IV site. meperidine (DEMEROL) preservative free injection 12.5 mg 12.5 mg, intravenous, Every 10 min PRN, shivering, Starting on Mon04/28/20 at 0725, For 2 doses, Phase I, Max cumulative dose 25 mg., Indications: Shivering ondansetron (ZOFRAN) injection 4 mg 4 mg, intravenous, Administer over 2 Minutes, Once as needed, nausea, vomiting, Starting on Mon04/28/20 at 0725, For 1 dose, Phase I, Proceed to prochlorperazine if ondansetron has been given within the last 6 hours. prochlorperazine (COMPAZINE) injection 5 mg 5 mg, intravenous, Every 10 min PRN, nausea, vomiting, Check with Anesthesiologist before administring, and ask about IV versus IM., Starting on Mon04/28/20 at 0725, For 2 doses, Phase I, If nausea/vomiting not relieved by ondansetron within 30 minutes or if ondansetron has been given within the last 6 hours. sodium chloride 0.9 % irrigation (CANCELED) As needed, Starting on Mon04/28/20 at 0735, Intra-Op 0735 (Given - Provid er: Angel Nelson MD) sodium chloride 0.9% flush 0.5-20 mL 0.5-20 mL, intra-catheter, As needed, line care, Flush [place] Block Hep Locks to keep vein open., Starting on Mon04/28/20 at 0551, Pre-Op, Flush volume based on line type and size. Flush before and after each use. , Indications: Flushing documented in this encounter Orders Medications Ordered That Eyad ht Not Have Been Administered Count Last Ordered Date First Ordered Date acetaminophen (TYLENOL) tablet 500 mg 1 diphenhydrAMINE (BENADRYL) i njection 12.5 mg 1 04/28/2020 fentaNYL (SUBLIMAZE) preserv ative free syringe 25 mcg 04/28/2020 HYDROcodone-acetaminophen (N ORCO) 5-325 mg per tablet 1 tablet 04/28/2020 HYDROmorphone (DILAUDID) injection 0.2 mg 04/28/2020 labetaloL (NORMODYNE,TRANDAT E) injection 5 mg 04/28/2020 Lactated Ringer's (LR) infusion 0 lidocaine (XYLOCAINE) 10 mg/ mL (1 %) injection 2-10 mg 04/28/2020 meperidine (DEMEROL) preserv ative free injection 12.5 mg 04/28/2020 ondansetron (ZOFRAN) injection 4 mg 1 04/28 prochlorperazine (COMPAZINE) injection 5 mg 1 04/28/2020 scopolamine patch 72 hour 1 patch 1 020 sodium chloride 0.9% flush 0.5-20 mL 1 04/14 documented in this encounter Care Teams Core Java Engineer Relationship Specialty Start Date End Date Roxanna Moreno MD PCP - General 10/21/16 documented as of this encounter
--- OUTSIDE RECORDS SUMMARY | 2024-08-03 14:55 | XMS_ITS | Encounter Summary ---
Author Organization [facility] Healthcare Address [address] [place] [address] Care Team Providers Care Metal Filer Name Role Phone Roxanna Moreno MD Primary Care Provider + Reason for Visit * Diagnostic Imaging (Routine) - Closed Specialty Diagnoses / Procedures Referred By Contac t Referred To Contact Diagnoses Mid back pain Procedures FL Fluoro Guided Needle Placement Dayanna Crump MD Phone: tel: fax: [address] [address] Referral ID Status Reason Start Date Expiration Date Visits Re quested Visits Authorized [id number] Closed 05/05/2020 06/04/2021 1 1 Encounter Details Date Type Department Care Team (Late st Contact Info) Description 05/05/2020 7:40 AM CDT Ancillary Procedure [facility] Center at [address] [address] Dayanna Crump MD [address] [place] [address] Mid back pain Social History Tobacco Use Types Packs/Day Years Used Date Smoking Tobacco: Never Smokeless Tobacco: Former Quit: 05/2011 Alcohol Use Standard Drinks/Week Comments Yes 0 (1 standard drink = 0.6 oz pur e alcohol) RARE 3-4 q year Sex and Gender Information Value Date Recorded Sex Assigned at Not on file Legal Sex Male 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 Author CCM Chronic Pain Care Plan Chronic Care Management No change(07/21 7:32 AM GRADUATE STUDENT INSTRUCTOR) No Saran Quiñones, RN Note: Problem: Chronic [...] PLACEMENT Schedule Routine, Read Routine (OP Routine) 05/05/2020 8:00 AM CDT Mid back pain documented in this encounter Results * FL Fluoro Guided Needle Placement (05/05/2020 8:00 AM CDT) Narrative [facility] - 05/05/2020 9:21 AM CDT The images from this study are not interpreted by Radiology. ??Please refer to the physician's procedure / OR operative note. us Dayanna Crump MD IMG FLUOROSCOPY PROCE MUNIRES Final Result [facility] documented in this encounter Visit Diagnoses Diagnosis Mid back pain documented in this encounter Care Teams Metal Filer Relationship Specialty Start Date End Date Roxanna Moreno MD PCP - General 10/21/16 documented as of this encounter
--- OUTSIDE RECORDS SUMMARY | 2024-08-03 14:55 | XMS_ITS | Encounter Summary ---
Author Organization [facility] Healthcare Address [address] [place] [address] Care Team Providers Care Metal Furniture Polisher Name Role Phone Roxanna Moreno MD Primary Care Provider + Reason for Visit * Reason Onset Date Comments Procedure Precall 05/01/2020 Encounter Details Date Type Department Care Team (Late st Contact Info) Description 05/01/2020 Telephone [place] [id number] [facility] [address] [place] [address] Sharonda Munson RN Procedure Precall Social History Tobacco Use Types Packs/Day Years Used Date Smoking Tobacco: Never Smokeless Tobacco: Former Quit: 05/2011 Alcohol Use Standard Drinks/Week Comments Yes 0 (1 standard drink = 0.6 oz pur e alcohol) RARE 3-4 q year Sex and Gender Information Value Date Recorded Sex Assigned at Not on file 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 documented in this encounter Plan of Treatment Not on file documented as of this encounter Goals Goal Patient Goal Type Associated Problems Recent Progress Patient-Stated? Author CCM Chronic Pain Care Plan Chronic Care Management No change(07/21 7:32 AM TRUCK TRAILER FINAL INSPECTOR) No Saran Quiñones, RN Note: Problem: Chronic Pain Goals: 1. Minimize further functional decline 2. Maximize quality of life 3. Control pain Strategies: - Activity/exercise program recommendation - Conservative stepwise pain medicine strategy with multi-disciplinary approach - Recommend healthy lifestyle strategies and compensatory methods as needed documented as of this encounter Visit Diagnoses Not on filedocumented in this encounter Care Teams Metal Furniture Polisher Relationship Specialty Start Date End Date Roxanna Moreno MD PCP - General 10/21/16 documented as of this encounter
--- OUTSIDE RECORDS SUMMARY | 2024-08-03 14:55 | XMS_ITS | Encounter Summary ---
Author Organization [facility] Healthcare Address [address] [place] [address] Care Team Providers Care Automotive Window Tinter Name Role Phone Roxanna Moreno MD Primary Care Provider + Reason for Visit * Reason Comments Procedure right rib/abdominal pain Encounter Details Date Type Department Care Team (Latest Contact Info) Description 08/21/2020 7:16 AM SKI LIFT OPERATOR - 08/21/2020 7:31 AM SKI LIFT OPERATOR Hospital Encounter [facility] [address] [address], [address] [place] [phone] Dayanna Crump MD [address] [facility] [address] [place] [address] Intercostal neuralgia (Primary Dx); Myofascial pain Discharge [...] on file Legal Sex Male 1:57 AM SKI LIFT OPERATOR Gender Identity Male 06/20/2021 2:35 PM SKI LIFT OPERATOR Sexual Orientation Straight 06/20/2021 2: 35 PM SKI LIFT OPERATOR documented as of this encounter Last Filed Vital Signs Vital Sign Reading Time Taken Comments Blood Pressure 140/81 08/21/2020 8:27 AM SKI LIFT OPERATOR Pulse 64 08/21/2020 8:27 AM SKI LIFT OPERATOR Temperature 36.3 ??C (97.3 ??F) 08/21/2020 7:35 AM CS T Respiratory Rate 16 08/21/2020 8:27 AM SKI LIFT OPERATOR Oxygen Saturation 100% 08/21/2020 8:27 AM SKI LIFT OPERATOR Inhaled Oxygen Concentration - - Weight 112.9 kg (249 lb) 08/21/2020 7:35 AM SKI LIFT OPERATOR Height 177.8 cm (5' 10 ) 08/21/2020 7:35 AM SKI LIFT OPERATOR Body Mass Index 35.73 08/21/2020 7:35 AM SKI LIFT OPERATOR documented in this encounter Discharge Instructions * Discharge Instructions* Inez Fisher RN - 08/21/2020 8:09 AM SKI LIFT OPERATOR See D/C instructions LIFT OPERATOR * Patient Instructions* Gabriela Ingram RN - 08/21/2020 7:30 AM SKI LIFT OPERATOR [facility] DISCHARGE INSTRUCTIONS [phone] (Monday-Monday 7:30 am - 4:00 pm) PLAN: PROCEDURE TODAY: Right T7, T8, T9 intercostal nerve block PROCEDURE AT NEXT VISIT: Trigger point injections DIAGNOSTIC TEST(S): FOLLOW UP: in 4-8 weeks. The [facility] is committed to providing your medication refills in a timely manner. When submitting a refill request, please note the following guidelines: ??? Federal guidelines recommend patients with chronic pain, for whom opioid medications are prescribed, be evaluated at least once every two-three months.The [facility] adheres to these guidelines and patients should plan to be seen at least every two-three months (or more frequently, as deemed appropriate by the prescribing provider). o To allow timely scheduling of evaluations, please contact the office to schedule your appointment6-8 weeks in advance. ??? For all opioid/narcotic prescription refills, please contact the [facility] at least 7 days prior to the date of need. o Call [phone] choose option #1 for the Prescription Refill Line and leave the following information: - Name, date of , and phone number - Name(s) of the medication(s) needing refill - Name and number for the pharmacy where the refill(s) should be sent ??? All non-opioid/non-narcotic refill requests should be submitted directly to the pharmacy. The pharmacy will then contact the [facility] with the necessary information. ??? If you have any questions or concerns, please contact the [facility] at [phone]. For any questions about your visit or your procedure, please call the [facility] [phone] (Monday-Monday 7:30 am - 4:00 pm). Please leave a message on the Nurse Line for ALL Non Urgent matters (option #4). If you have an urgent matter during normal business hours please choose option #3 for current patients. If you need urgent attention after 4 pm, on the weekends, or a holiday that can not wait until the office opens: Please call 911 or go to the nearest Emergency Room. [facility] PATIENT EDUCATION STEROID INJECTION POST-PROCEDURE INFORMATION SHEET WHEN YOU GET HOME: ??? Resume your normal medication. ??? Resume your normal diet. ??? For soreness, you may place an ice bag once an hour at the injection site for 15-20 minutes. After 24 hours, you may use heat at the injection site. ??? DO NOT lie on, or fall asleep with the heating pad. ??? You may shower daily. ??? To prevent infection, do not take a bath, swim, or sit in a Jacuzzi or hot tub for the next 2 days. ??? Drink plenty of fluids-to decrease your chance of a headache, which may occur occasionally after injection. IT MAY TAKE THE STEROID MEDICATION 3-7 DAYS TO START WORKING AND CAN TAKE UP TO TWO WEEKS FOR FULL BENEFIT OF MEDICATION. You may experience side effects of the steroid medication. Some of these side effects include: ??? Dizziness or light headedness upon standing. ??? Steroid Flushing - flushing of the face and chest that can last several days and be accompanied by a feeling of warmth or low grade increase in temperature. ??? Increased pain or soreness or achiness at the injection site. ??? Slight weakness or numbness in arms or legs. ??? Anxiety, trouble sleeping ??? Increase in blood sugars Serious complications are rare, but could include: ??? Severe Allergic Reaction ??? Bleeding ??? Infection indicated but not limited to fever over 101, warmth/redness/drainage to injection site ??? Severe Headache when sitting or standing that is resolved when lying down ??? Loss of balance/difficulty walking ??? Loss of bowel or bladder control ??? Increasing muscle weakness or prolonged numbness in the arms or legs. If you experience ANY of the above serious symptoms, Call 911 and go to the Emergency Department. Notify [facility] AFTER receiving care for the symptoms. Please call [facility] if you have questions or concerns @ [phone] LIFT OPERATOR LIFT OPERATOR documented in this encounter Medications at Time [...] MG) BY MOUTH DAILY 30 capsule 2 05/20/2020 1 hydroCHLOROthiaz jamaica (HYDRODIURIL) 25 mg tabletIndication s:hypertension Take 25 mg by mouth every morning 2 01/18/2018 2 UNABLE TO FIND Med Name: medical marijuana 1 documented as of this encounter Ordered Prescriptions Prescription Sig Dispense Quantity Refills Last Filled Start Date End Date pregabalin (LYRICA) 50 mg capsule Take 1 capsule (50 mg total) by mouth 3 (three) times a day 90 capsule 1 08/21/2020 lidocaine (XYLOCAINE) 5 % ointment Apply topically 2 (two) times a day as needed for pain 35.44 g 5 08/21/2020 3 documented in this encounter Discharge Disposition Disposition Code Departure Means Destination Discharge to home or self care documented in this encounter Progress Notes * Dayanna Crump MD - 08/21/2020 7:30 AM CST Progress Note Patient Name: Aleksandar Olsen : 1980 Today's Date: 08/21/2020 PCP: Roxanna Moreon MD Referring: No ref. provider found Interval History: Today 08/21/2020 SUBJECTIVE Chief complaint of Chief Complaint Patient presents with ??? Procedure right rib/abdominal pain Patient was last here in April for right T7, T8, T9 intercostal nerve blocks. He continues to report significant benefit from these injections. He also reports benefit from TPI for his low back pain. Unfortunately the benefits do not last as long as he would like. Since his last visit he called with reports of increased pain. Lyrica 75 mg TID was added to his regimen. He does feel that it's helpful especially for his neck pain. Unfortunately, the medication makes him very sleepy. Of note, he cannot have an MRI [...] MG) BY MOUTH DAILY Authorizing Provider: Madina Hsuain NP Notes: -- HYDROCHLOROTHIAZIDE (HYDRODIURIL) 25 MG [...] Fernanda Pompa MD Notes: -- PREGABALIN (LYRICA) 75 MG CAPSULE Take 1 capsule (75 mg total) by mouth 3 (three) times a day Authorizing Provider: Dayanna Crump MD Notes: >> KENYATTA KAUFMAN Katlyn Aug 21, 2020 7:33 AM Makes patient very sleepy within an hour oftaking SERTRALINE (ZOLOFT) 50 MG TABLET Take 50 [...] fever. Respiratory: Negative for shortness of breath. OBJECTIVE Vitals: Most Recent : Vitals BP 122/80 Pulse 78 Temp 97.3 ??F (36.3 ??C) Resp 18 Ht 177.8 cm (5' 10 ) Wt 112.9 kg (249 lb) SpO2 98% BMI 35.73 kg/m?? Physical Exam: Physical Exam Constitutional: Appearance: [...] - Primary Myofascial pain PLAN: 1. ??Intervention: Right T7, T8, T9 intercostal nerve block today. -trigger point injections in 4-8 weeks or prn - Continue Medtronic SCS use for back and right chest pain. Pt uses high frequency setting intermittently. 2. ??Medications: ?a. Opioids: ??none indicated at this time. ?b. Adjuvants:??continue lidocaine cream, voltaren gel, duloxetine 60 mg daily, TENS unit?? -Will decrease his dose of Lyrica to 50 mg TID given that ir makes him drowsy. 3. ??Imaging: Previously had a CT cervical spine at [place] and images were previously reviewed. Report scanned into media tab, dated 08/10/2018. 4. ??Referral: ??He has participated in PT. Continue HEP ?? 5. ??Follow-up: 4-8 weeks for TPI 08/21/2020 7:45 AM ?? LIFT OPERATOR documented in this encounter Miscellaneous Notes * Perioperative Nursing Note - Gabriela Ingram RN - 08/21/2020 8:25 AM CST Patient tolerated procedure well. VSS, see flowsheet. Patient ambulated to recovery room with minimal assist and steady gait. Report given to MABLE Wiley. LIFT OPERATOR * Op Note - Dayanna Crump MD - 08/21/2020 7:30 AM CST Patient ID Patient Name: Aleksandar Olsen : 1980 DOS: 08/21/2020 PCP: Roxanna Moreno MD Surgeon SURGEON: Dayanna Crump MD EMPLOYMENT ATTORNEY SURGEON: None Procedures NAME OF PROCEDURE: Intercostal nerve block at Right T7, T8 and T9, under Fluoroscopy. PRE-PROCEDURE DIAGNOSES: Intercostal Neuralgia. POST-PROCEDURE DIAGNOSES: same INDICATION FOR PROCEDURE: back pain INFORMED CONSTENT: After reviewing the procedure [...] Resident involved on case Dayanna Crump MD 08/21/2020 8:31 AM LIFT OPERATOR * Addendum Note - Charbel Brandt RT - 08/21/2020 7:30 AM CSTEncounter addended by: Charbel Brandt RT on: 08/21/2020 9:30 AM Actions taken: Charge Capture section accepted LIFT OPERATOR documented in this encounter Plan of Treatment Not on file documented as of this encounter Goals Goal Patient Goal Type Associated Problems Recent Progress Patient-Stated? Author CCM Chronic Pain Care Plan Chronic Care Management No change(07/21 7:32 AM SKI LIFT OPERATOR) No Saran Quiñones, MABLE Note: Problem: Chronic Pain Goals: 1. Minimize further functional decline 2. Maximize quality of life 3. Control pain Strategies: - Activity/exercise program recommendation - Conservative stepwise pain medicine strategy with multi-disciplinary approach - Recommend healthy lifestyle strategies and compensatory methods as needed Reduce the likelihood of falling Lifestyle No change(07/21 7:32 AM SKI LIFT OPERATOR) No Kenyatta Kaufman, MABLE Note: Below [...] on stairs Contact your local community or [facility] for information on exercise, fall [...] preservative free injection As needed, Starting on Mon08/21/20 at 0822, Intra-Op Given 08/21/2020 8:22 AM SKI LIFT OPERATOR 8 mL iohexoL (OMNIPAQUE) 300 mg iodine/mL injection solution As needed, Starting on Mon08/21/20 at 0821, Intra-Op Given 08/21/2020 8:22 AM SKI LIFT OPERATOR 1.5 mL lidocaine (XYLOCAINE) 10 mg/mL (1 %) injection As needed, Starting on Mon08/21/20 at 0818, Intra-Op, Indications: Administration of Local AnesthesiaIndications:Administrati on of Local Anesthesia Given 08/21/2020 8:21 AM SKI LIFT OPERATOR 2 mL Given 08/21/2020 8:18 AM SKI LIFT OPERATOR 2 mL methylPREDNISolone acetate (DEPO-medrol) injection As needed, Starting on Mon08/21/20 at 0822, Intra-Op Given 08/21/2020 8:22 AM SKI LIFT OPERATOR 40 mg documented in this encounter Discontinued Medications Medication Sig Discontinue Reason Start Date End Da te lidocaine (XYLOCAINE) 5 % ointment Apply topically 2 (two) times a day as needed for pain Reorder 08/29/2019 08/21/2020 pregabalin (LYRICA) 75 mg capsule Take 1 capsule (75 mg total) by mouth 3 (three) times a day Reorder 07/28/2020 08/21/2020 documented as of this encounter Care Teams Automotive Window Tinter Relationship Specialty Start Date End Date Roxanna Moreno MD PCP - General 10/21/16 documented as of this encounter
--- OUTSIDE RECORDS SUMMARY | 2024-08-03 14:55 | XMS_ITS | Encounter Summary ---
Author Organization [facility] Healthcare Address [address] [place] [address] Care Team Providers Care Pole Lift Operator Name Role Phone Roxanna Moreno MD Primary Care Provider + Reason for Visit * Reason Comments Back Pain Neck Pain Encounter Details Date Type Department Care Team (Latest Contact Info) Description 09/28/2020 7:32 AM FRUIT VENDOR - 09/28/2020 11:59 PM FRUIT VENDOR Hospital Encounter [facility] [address] [place] [phone] Dayanna Crump MD [address] [facility] [address] [place] [address] Chronic low back pain without sciatica, unspecified back pain laterality (Primary Dx); Intercostal neuralgia; Musculoskeletal pain Discharge Disposition: Discharge to home or [...] on file Legal Sex Male 1:57 AM FRUIT VENDOR Gender Identity Male 06/20/2021 2:35 PM FRUIT VENDOR Sexual Orientation Straight 06/20/2021 2: 35 PM FRUIT VENDOR documented as of this encounter Last Filed Vital Signs Vital Sign Reading Time Taken Comments Blood Pressure 122/88 09/28/2020 7:44 AM FRUIT VENDOR Pulse 78 09/28/2020 7:44 AM FRUIT VENDOR Temperature 36.7 ??C (98.1 ??F) 09/28/2020 7:44 AM CS T Respiratory Rate 14 09/28/2020 7:44 AM FRUIT VENDOR Oxygen Saturation 98% 09/28/2020 7:44 AM FRUIT VENDOR Inhaled Oxygen Concentration - - Weight - - Height - - Body Mass Index - - documented in this encounter Discharge Instructions * Discharge Instructions* Lupe Awan RN - 09/28/2020 7:59 AM FRUIT VENDOR Please see attached post-procedure sheet: Trigger Point Injections ??? May shower today. No swimming pools, hot tubs, bathtubs or soaking for 24 hours. ??? Activity as tolerated today. May return to normal activities tomorrow. ??? No driving today. May return to driving tomorrow. Additional Instructions: ??? Follow up in 2 months for Right T 7-9 Intercostal Nerve Block [facility] PATIENT EDUCATION TRIGGER POINT [...] Center AFTER receiving care for the symptoms. T VENDOR documented in this encounter Medications at Time [...] for pain 35.44 g 5 08/21/2020 3 UNABLE TO FIND Med Name: medical marijuana 1 documented as of this encounter Discharge Disposition Disposition Code Departure Means Destination Discharge to home or self care documented in this encounter Progress Notes * Dayanna Crump MD - 09/28/2020 10:30 AM CST Progress Note Patient Name: Aleksandar Olsen : 1980 Today's Date: 09/28/2020 PCP: Roxanna Moreno MD Referring: No ref. provider found Interval History: Today 09/28/2020 SUBJECTIVE Chief complaint of No chief complaint on file. Patient is here today for trigger point injections. He also receives right T7, T8, T9 intercostal nerve blocks (last injection 5 weeks ago with 85% improvement). He feels that these injections continue to help manage his pain. Of note, he cannot have an MRI [...] neck pain. OBJECTIVE Vitals: Most Recent : There were no vitals taken for this visit. Physical Exam: Physical Exam Constitutional: Appearance: He is well-developed. Pulmonary: Effort: Pulmonary effort is normal. Neurological: Mental Status: He is alert and oriented to person, place, and time. Labs/Radiology/Diagnostic Review: No recent results to review ASSESSMENT Mr. Aleksandar Olsen is a 40 y.o. male who presents with Problem List Items Addressed This Visit None PLAN: 1. ??Intervention: trigger point injections today Right T7, T8, T9 intercostal nerve block in 2 weeks - Continue Medtronic SCS use for back and right chest pain. Pt uses high frequency setting intermittently. 2. ??Medications: ?a. Opioids: ??none indicated at this time. ?b. Adjuvants:??continue lidocaine cream, voltaren gel, duloxetine 60 mg daily, TENS unit?? -Continue Lyrica to 50 mg TID (higher doses make him drowsy). 3. ??Imaging: Previously had a CT cervical spine at [place] and images were previously reviewed. Report scanned into media tab, dated 08/10/2018. 4. ??Referral: ??He has participated in PT. Continue HEP ?? 5. ??Follow-up: 2 months for intercostal nerve block 09/28/2020 7:37 AM ?? T VENDOR documented in this encounter Miscellaneous Notes * Op Note - Dayanna Crump MD - 09/28/2020 10:30 AM CST Patient ID Patient Name: Aleksandar Olsen : 1980 DOS: 09/28/2020 PCP: Roxanna Moreno MD Surgeon SURGEON: Dayanna Crump MD PYROTECHNIST SURGEON: None Diagnosis: Myofascial Pain, Neck Pain and Low back pain NAME OF PROCEDURE: Trigger Point [...] of injectate 0.25% Bupivacaine Total ml injected: 9 ml Total number of muscle groups: 2 [...] Lumborum: [] Right [] Left Paravertebral, Cerical: [x] Right [x] Left Paravertebral, Thoracic: [x] Right [] Left [...] Resident involved on case Dayanna Crump MD 09/28/2020 8:02 AM T VENDOR * Addendum Note - Charbel Brandt, RT - 09/28/2020 10:30 AM CSTEncounter addended by: Charbel Brandt RT on: 09/28/2020 9:17 AM Actions taken: Charge Capture section accepted T VENDOR documented in this encounter Plan of Treatment Not on file documented as of this encounter Goals Goal Patient Goal Type Associated Problems Recent Progress Patient-Stated? Author CCM Chronic Pain Care Plan Chronic Care Management No change(07/21 7:32 AM FRUIT VENDOR) No Saran Quiñones, RN Note: Problem: Chronic Pain Goals: 1. Minimize further functional decline 2. Maximize quality of life 3. Control pain Strategies: - Activity/exercise program recommendation - Conservative stepwise pain medicine strategy with multi-disciplinary approach - Recommend healthy lifestyle strategies and compensatory methods as needed Reduce the likelihood of falling Lifestyle No change(07/21 7:32 AM FRUIT VENDOR) No Kenyatta Kaufman, RN Note: Below are [...] without sciatica, unspecified back pain laterality- Primary Intercostal neuralgia Other nerve root and plexus disorders Musculoskeletal pain Unspecified myalgia and myositis documented in this encounter Administered Medications Inactive Administered Medications - up to 3 most recent administrations Medication Order MAR Action Action Date Dose Rate Site bupivacaine (MARCAINE) 0.25 % (2.5 mg/mL) preservative free injection As needed, Starting on Mon09/28/20 at 0800, Intra-Op Given 09/28/2020 8:00 AM FRUIT VENDOR 9 mL documented in this encounter Care Teams Pole Lift Operator Relationship Specialty Start Date End Date Roxanna Moreno MD PCP - General 10/21/16 documented as of this encounter
--- OUTSIDE RECORDS SUMMARY | 2024-08-03 14:55 | XMS_ITS | Encounter Summary ---
Author Organization [facility] Healthcare Address [address] [place] [address] Care Team Providers Care Food Crops Farm Hand Name Role Phone Roxanna Moreno MD Primary Care Provider + Reason for Visit * Reason Onset Date Comments Pre Arrival 11/23/2020 Encounter Details Date Type Department Care Team (Late st Contact Info) Description 11/23/2020 [id number] [facility] [address] [place] [address] Tamia Ramey RN Pre Arrival Social History Tobacco Use Types Packs/Day Years Used Date Smoking Tobacco: Never Smokeless Tobacco: Former Quit: 05/2011 Alcohol Use Standard Drinks/Week Comments Yes 0 (1 standard drink = 0.6 oz pur e alcohol) RARE 3-4 q year Sex and Gender Information Value Date Recorded Sex Assigned at Not on file Legal Sex Male 1:57 AM CONSULTING NURSE Gender Identity Male 06/20/2021 2:35 PM CONSULTING NURSE Sexual Orientation Straight 06/20/2021 2: 35 PM CONSULTING NURSE documented as of this encounter Miscellaneous Notes * Telephone Encounter - Tamia Ramey RN - 11/23/2020 8:23 AM CDT Procedure Patients receiving steroid injection [...] Chronic Care Management No change(07/21 7:32 AM CONSULTING NURSE) No Saran Quiñones, MABLE Note: Problem: Chronic Pain Goals: 1. Minimize further functional decline 2. Maximize quality of life 3. Control pain Strategies: - Activity/exercise program recommendation - Conservative stepwise pain medicine strategy with multi-disciplinary approach - Recommend healthy lifestyle strategies and compensatory methods as needed Reduce the likelihood of falling Lifestyle No change(07/21 7:32 AM CONSULTING NURSE) No Kenyatta Kaufman RN Note: Below are [...] stairs Contact your local community or [facility] [place] for information on exercise, fall prevention programs, or options for improving home safety. documented as of this encounter Visit Diagnoses Not on filedocumented in this encounter Care Teams Food Crops Farm Hand Relationship Specialty Start Date End Date Roxanna Moreno MD PCP - General 10/21/16 documented as of this encounter
--- OUTSIDE RECORDS SUMMARY | 2024-08-03 14:55 | XMS_ITS | Encounter Summary ---
Author Organization [facility] Healthcare Address [address] [place] [id number] Care Team Providers Care Network Internship Name Role Phone Roxanna Moreno MD Primary Care Provider + Reason for Visit * Reason Comments Neck Pain Encounter Details Date Type Department Care Team (Latest Contact Info) Description 06/22/2020 7:23 AM TECHNICAL PRODUCER - 06/22/2020 11:59 PM TECHNICAL PRODUCER Hospital Encounter [facility] at [facility] [address] [facility] 1st [place] [phone] Dayanna Crump MD [address] [place] [address] Chronic low back pain without sciatica, unspecified [...] on file Legal Sex Male 1:57 AM TECHNICAL PRODUCER Gender Identity Male 06/20/2021 2:35 PM TECHNICAL PRODUCER Sexual Orientation Straight 06/20/2021 2: 35 PM TECHNICAL PRODUCER documented as of this encounter Last Filed Vital Signs Vital Sign Reading Time Taken Comments Blood Pressure 149/96 06/22/2020 7:33 AM TECHNICAL PRODUCER Pulse 72 06/22/2020 7:33 AM TECHNICAL PRODUCER Temperature 36.2 ??C (97.2 ??F) 06/22/2020 7:33 AM CS T Respiratory Rate 16 06/22/2020 7:33 AM TECHNICAL PRODUCER Oxygen Saturation 99% 06/22/2020 7:33 AM TECHNICAL PRODUCER Inhaled Oxygen Concentration - - Weight - - Height - - Body Mass Index - - documented in this encounter Discharge Instructions * Patient Instructions* Almita Mitchell, RN - 06/22/2020 7:30 AM TECHNICAL PRODUCER PAIN MANAGEMENT CENTER DISCHARGE INFORMATION PLAN: ??? Trigger point injections NEW ORDERS: ??? If you have any questions or concerns, please contact the Pain Management Center at [phone]. Calls are accepted Monday-Monday, 7:30am-4pm, excluding observed holidays. ??? Non-urgent matters: Select the nurse line option and leave a message ??? Urgent matters: Select the current patient scheduling option ??? Urgent/emergent matters occurring outside of business hours that can not wait until the office opens: Call 911 or go to the nearest Emergency Room. The Pain [facility] is committed to providing your medication refills [...] to the date of need. o Call [phone] and leave a message on the RN [...] Pain Management Center with the necessary information. PAIN MANAGEMENT CENTER PATIENT EDUCATION TRIGGER POINT [...] Center AFTER receiving care for the symptoms. NICAL PRODUCER documented in this encounter Medications at Time [...] documented in this encounter Progress Notes * Dillan Hoffman DO - 06/22/2020 7:30 AM CST Progress Note Patient Name: Aleksandar Olsen : 1980 Today's Date: 06/22/2020 PCP: Roxanna Moreno MD Referring: No ref. provider found Interval History: Today 06/22/2020 SUBJECTIVE Chief complaint of No chief complaint on file. Patient was last here in April for right T7, T8, T9 intercostal nerve blocks which decreased his pain by 50% for about two months. He also receives right trapezius and thoracic paravertebral muscles which provide approximately helps somewhat. He says it helps about 25% for a shorter period of time but helps him cope with the pain until he receives the intercostal nerve block. He describes hisback pain as a burning nerve pain and his neck pain as sore and dull. His left side is beginning tobother him as well. Of note, he cannot have an MRI cervical spine because of his spinal cord stimulator. His pain regimen includes duloxetine, sertraline, TENS unit as well as OTC topicals (voltaren, lidocaine) which are well tolerated with benefit. Patient's Medications New Prescriptions No medications on file Previous Medications ATORVASTATIN (LIPITOR) 20 MG TABLET Take 20 mg by mouth every morning Authorizing Provider: ProviderFernanda MD Notes: -- DULOXETINE DR (CYMBALTA) 60 [...] for cough and shortness of breath. Cardiovascular: Positive for chest pain. Gastrointestinal: Negative for nausea and vomiting. Endocrine: Negative for cold intolerance and heat intolerance. Genitourinary: Negative for difficulty urinating and dysuria. Musculoskeletal: Positive for back pain, myalgias and neck pain. Right chest wall pain radiating towards the back Skin: Negative for color change and rash. Allergic/Immunologic: Negative for immunocompromised state. Neurological: Negative for dizziness, light-headedness and numbness. Hematological: Negative for adenopathy. Psychiatric/Behavioral: Negative for agitation, behavioral problems, confusion and hallucinations. OBJECTIVE Vitals: Most Recent : There were no vitals taken for this visit. Physical Exam: Physical Exam Constitutional: Appearance: He is well-developed. HENT: Head: Normocephalic. Comments: C-spine full range of motion Neck: Musculoskeletal: Neck supple. Pulmonary: Effort: Pulmonary effort is normal. Musculoskeletal: Comments: Trigger points identified on right paravertebral muscles And bilateral para cervical muscles Skin: General: Skin is dry. Neurological: Mental Status: He is alert and oriented to person, place, and time. Labs/Radiology/Diagnostic Review: No recent results to review ASSESSMENT Mr. Aleksandar Olsen is a 39 y.o. male who presents with Problem List Items Addressed This Visit None PLAN: 1. ??Intervention: -trigger point injections Today. - Continue Medtronic SCS use for back and right chest pain. Pt uses high frequency setting intermittently. 2. ??Medications: ?a. Opioids: ??none indicated at this time. ?b. Adjuvants: No changes today;??continue lidocaine cream, voltaren gel, duloxetine 60 mg daily, TENS unit?? 3. ??Imaging: Previously had a CT cervical spine at [facility] and images were previously reviewed. Report scanned into [employer] tab, dated 08/10/2018. 4. ??Referral: ??Discussed PT referral for worsening myofascial neck pain but he states that he hasparticipated in PT. Continue HEP ?? 5. ??Follow-up: 4 weeks for right T7, T8, T9 intercostal nerve blocks Dillan Hoffman DO Fellow, Pain Management [facility], [facility] 06/22/2020 7:34 AM ?? Cosigned by Dayanna Crump MD at 06/22/2020 8:15 AM TECHNICAL PRODUCER NICAL PRODUCER NICAL PRODUCER Associated attestation - Dayanna Crump MD - 06/22/2020 8:15 AM TECHNICAL PRODUCER I have seen and examined the patient on 06/22/20. I agree with the findings and plan of care as documented in the resident's/fellow's note.. documented in this encounter Miscellaneous Notes * Op Note - Dayanna Crump MD - 06/22/2020 7:30 AM CST Patient ID Patient Name: Aleksandar Olsen : 1980 DOS: 06/22/2020 PCP: Roxanna Moreno MD Surgeon SURGEON: Dayanna Crump MD BAND SAW OPERATOR CAKE CUTTING SURGEON: Dillan Ochoa MD Diagnosis: back pain and Neck Pain NAME [...] (including opening and closing). Dayanna Crump MD 06/22/2020 8:12 AM NICAL PRODUCER * Addendum Note - Eliz Acosta RT - 06/22/2020 7:30 AM CSTEncounter addended by: Eliz Acosta RT on: 06/22/2020 10:06 AM Actions taken: Charge Capture section accepted NICAL PRODUCER documented in this encounter Plan of Treatment Not on file documented as of this encounter Goals Goal Patient Goal Type Associated Problems Recent Progress Patient-Stated? Author CCM Chronic Pain Care Plan Chronic Care Management No change(07/21 7:32 AM TECHNICAL PRODUCER) No Saran Quiñones, MABLE Note: Problem: Chronic [...] Site bupivacaine (MARCAINE) 0.25 % (2.5 mg/mL) injection As needed, Starting on 06/22/20 at 0754, Intra-Op Given 06/22/2020 7:54 AM TECHNICAL PRODUCER 6 mL documented in this encounter Care Teams Network Internship Relationship Specialty Start Date End Date Roxanna Moreno MD PCP - General 10/21/16 documented as of this encounter
--- OUTSIDE RECORDS SUMMARY | 2024-08-03 14:55 | XMS_ITS | Encounter Summary ---
Author Organization [facility] Healthcare Address [address] [place] [address] Care Team Providers Care Php Software Engineer Name Role Phone Roxanna Moreno MD Primary Care Provider + Reason for Visit * Reason Comments Back Pain thoracic Encounter Details Date Type Department Care Team (Latest Contact Info) Description 11/25/2020 7:52 AM CDT - 11/25/2020 11:59 PM CDT Hospital Encounter [facility] Center at [facility] [address] [facility] 1st [place] [phone] Dayanna Crump MD [address] [facility] [address] [place] [address] Intercostal neuralgia (Primary Dx) Discharge Disposition: Discharge [...] on file Legal Sex Male 1:57 AM METAL MOLDER Gender Identity Male 06/20/2021 2:35 PM METAL MOLDER Sexual Orientation Straight 06/20/2021 2: 35 PM METAL MOLDER documented as of this encounter Last Filed Vital Signs Vital Sign Reading Time Taken Comments Blood Pressure 139/95 11/25/2020 8:39 AM CDT Pulse 57 11/25/2020 8:39 AM CDT Temperature 36.4 ??C (97.6 ??F) 11/25/2020 7:57 AM CD T Respiratory Rate 19 11/25/2020 8:39 AM CDT Oxygen Saturation 98% 11/25/2020 8:39 AM CDT Inhaled Oxygen Concentration - - Weight 113.4 kg (250 lb) 11/25/2020 7:57 AM CDT Height - - Body Mass Index 35.87 08/21/2020 7:35 AM METAL MOLDER documented in this encounter Discharge Instructions * Discharge Instructions* Alisson Adan RN - 11/25/2020 8:40 AM CDT PAIN MANAGEMENT CENTER POST-PROCEDURE PATIENT EDUCATION The following procedure was performed in clinic today: Right intercostal nerve block You have received two [...] DISCHARGE INFORMATION PLAN: ??? Follow up in 4-8 weeks for Trigger Point Injections NEW ORDERS: ??? If you have any questions or concerns, please contact the Pain Management Center at [phone]. Calls are accepted Monday-Monday, 7:30am-4pm, excluding observed [...] be evaluated at least once every three months. The Pain Management Center adheres to these guidelines [...] to the date of need. o Call [phone] and leave a message on the RN [...] Pain Management Center with the necessary information. Procedure Patients receiving steroid injection 1. Have you received the Covid-19 vaccine within the last 2 weeks? Yes [] No[] 2. Do you plan to receive the Covid-19 vaccine in the next 2 weeks? Yes [] No [] Please attempt to not have a Covid-19 vaccine 2 weeks prior to a steroid injection or 2 weeks aftera steroid injection. At this time there is limited information regarding the impact to steroid injections on the efficacy of the Covid vaccine. Physician guidance recommends delaying steroid injections when possible. [email or web address] documented in this encounter Medications at Time [...] Progress Notes * Dayanna Crump MD - 11/25/2020 8:15 AM [...] Fernanda Pompa MD Notes: >> DONNY KHAN MonNov 25, [...] Previously had a CT cervical spine at [facility] and images were previously reviewed. Report scanned into [employer] tab, dated 08/10/2018. 4. ??Referral: ??He has participated in PT. Continue HEP ?? 5. ??Follow-up: For TPI in 4-8 weeks 11/25/2020 8:12 AM ?? documented in this encounter Miscellaneous Notes * Op Note - Dayanna Crump MD - 11/25/2020 8:15 AM CDT Patient ID Patient Name: Aleksandar Olsen : 1980 DOS: 11/25/2020 PCP: Roxanna Moreno MD Surgeon SURGEON: Dayanna Crump MD ANESTHESIOLOGY FELLOW SURGEON: None Procedures NAME OF PROCEDURE: Intercostal nerve block at Right T7, T8 and T9, under Fluoroscopy. PRE-PROCEDURE DIAGNOSES: Intercostal Neuralgia. POST-PROCEDURE DIAGNOSES: same INDICATION FOR PROCEDURE: thoracic back pain, intercostal neuralgia INFORMED CONSTENT: After reviewing the [...] Radiographic contrast (Omnipaque 300) was injected (volume 0.25 ml.) There was spread of contrast along [...] Resident involved on case Dayanna Crump MD 11/25/2020 8:33 AM * Addendum Note - Alisson Adan RN - 11/25/2020 8:15 AM CDTEncounter addended by: Alisson Adan RN on: 11/25/2020 8:42 AM Actions taken: Flowsheet accepted, Edited Discharge Instructions, Visit Navigator SmartForm Flowsheet section accepted, SmartForm saved * Addendum Note - Eliz Acosta RT - 11/25/2020 8:15 AM CDTEncounter addended by: Eliz Acosta RT on: 11/25/2020 8:48 AM Actions taken: Charge Capture section accepted documented in this encounter Plan of Treatment Not on file documented as of this encounter Goals Goal Patient Goal Type Associated Problems Recent Progress Patient-Stated? Author CCM Chronic Pain Care Plan Chronic Care Management No change(07/21 7:32 AM METAL MOLDER) No Saran Quiñones, MABLE Note: Problem: Chronic Pain Goals: 1. Minimize further functional decline 2. Maximize quality of life 3. Control pain Strategies: - Activity/exercise program recommendation - Conservative stepwise pain medicine strategy with multi-disciplinary approach - Recommend healthy lifestyle strategies and compensatory methods as needed Reduce the likelihood of falling Lifestyle No change(07/21 7:32 AM METAL MOLDER) Kenyatta Carlton RN Note: Below are four [...] Contact your local community or [facility] for information on exercise, fall prevention [...] preservative free injection As needed, Starting on Mon11/25/20 at 0829, Intra-Op Given 11/25/2020 8:29 AM CDT 8 mL iohexoL (OMNIPAQUE) 300 mg iodine/mL injection solution As needed, Starting on Mon11/25/20 at 0829, Intra-Op Given 11/25/2020 8:29 AM CDT 2 mL lidocaine PF (XYLOCAINE) 10 mg/mL (1 %) preservative free injection As needed, Starting on Mon11/25/20 at 0829, Intra-Op Given 11/25/2020 8:29 AM CDT 3 mL methylPREDNISolone acetate (DEPO-medrol) injection As needed, Starting on Mon11/25/20 at 0829, Intra-Op Given 11/25/2020 8:29 AM CDT 40 mg documented in this encounter Discontinued Medications Medication Sig Discontinue Reason Start Date End Da te UNABLE TO FIND Med Name: medical marijuana Therapy completed documented as of this encounter Care Teams Php Software Engineer Relationship Specialty Start Date End Date Roxanna Moreno MD PCP - General 10/21/16 documented as of this encounter
--- OUTSIDE RECORDS SUMMARY | 2024-08-03 14:55 | XMS_ITS | Encounter Summary ---
Author Organization [facility] Address [address] [place] [address] Care Team Providers Care Sustainable Development Policy Analyst Name Role Phone Roxanna Moreno MD Primary Care Provider + Reason for Referral * Diagnostic Imaging (Routine) - Closed Specialty Diagnoses / Procedures Referred By Contac t Referred To Contact Diagnoses Mid back pain Procedures FL Fluoroscopy < 1 Hour (Statistical Only) Dayanna Crump MD Phone: tel: fax: [place] [phone] [place] [phone] Referral ID Status Reason Start Date Expiration Date Visits Re quested Visits Authorized [id number] Closed 08/21/2020 09/20/2021 1 1 TING TECHNICIAN Reason for Visit * Diagnostic Imaging (Routine) - Closed Specialty Diagnoses / Procedures Referred By Contac t Referred To Contact Diagnoses Mid back pain Procedures FL Fluoroscopy < 1 Hour (Statistical Only) Dayanna Crump MD Phone: tel: fax: [place] [address] [place] [phone] Referral ID Status Reason Start Date Expiration Date Visits Re quested Visits Authorized [id number] Closed 08/21/2020 09/20/2021 1 1 Encounter Details Date Type Department Care Team (Latest Contact Info) Description 08/21/2020 7:32 AM PAINTING TECHNICIAN - 08/21/2020 11:59 PM PAINTING TECHNICIAN Hospital Encounter [facility] [address] [facility] [address] [place] [address] Mid back pain Discharge Disposition: Discharge to [...] on file Legal Sex Male 1:57 AM PAINTING TECHNICIAN Gender Identity Male 06/20/2021 2:35 PM PAINTING TECHNICIAN Sexual Orientation Straight 06/20/2021 2: 35 PM PAINTING TECHNICIAN documented as of this encounter Medications at [...] Chronic Care Management No change(07/21 7:32 AM PAINTING TECHNICIAN) No Saran Quiñones, RN Note: Problem: Chronic Pain Goals: 1. Minimize further functional decline 2. Maximize quality of life 3. Control pain Strategies: - Activity/exercise program recommendation - Conservative stepwise pain medicine strategy with multi-disciplinary approach - Recommend healthy lifestyle strategies and compensatory methods as needed Reduce the likelihood of falling Lifestyle No change(07/21 7:32 AM PAINTING TECHNICIAN) No Kenyatta Kaufman, MABLE Note: Below [...] on stairs Contact your local community or [facility] for information on exercise, fall prevention programs, or options for improving home safety. documented as of this encounter Procedures Procedure Name Priority Date/Time Associated Diagnosis Comments FL FLUOROSCOPY < 1 HOUR (STATISTICAL ONLY) Schedule Routine, Read Routine (OP Routine) 08/21/2020 8:30 AM PAINTING TECHNICIAN Mid back pain documented in this encounter Results * FL Fluoroscopy < 1 Hour (Statistical Only) (08/21/2020 8:30 AM PAINTING TECHNICIAN) Narrative [facility] - 08/21/2020 9:29 AM PAINTING TECHNICIAN The images from this study are not interpreted by Radiology. ??Please refer to the physician's procedure / OR operative note. us Dayanna Crump MD IMG FLUOROSCOPY [employer] Final Result [facility] documented in this encounter Visit Diagnoses Diagnosis Mid back pain documented in this encounter Care Teams Sustainable Development Policy Analyst Relationship Specialty Start Date End Date Roxanna Moreno MD PCP - General 10/21/16 documented as of this encounter
--- OUTSIDE RECORDS SUMMARY | 2024-08-03 14:55 | XMS_ITS | Encounter Summary ---
Author Organization [facility] Healthcare Address [address] [place] [address] Care Team Providers Care Geochemistry Teacher Name Role Phone Roxanna Moreno MD Primary Care Provider + Encounter Details Date Type Department Care Team (Late st Contact Info) Description 04/28/2020 7:18 AM CDT Anesthesia Event [facility] [address] [place] [id number] Brendan Mathis MD [address] [facility] [address] [place] [address] Tina Mccormick, NETWORK ENGINEER [address] [facility] [id number] [place] [address] Anesthesia Record Procedure Summary Procedure Name Responsible Anesthesiologist Anesthesia Start Time Anesthesia Stop Time left CARPAL TUNNEL RELEASE, sutures removed from right palm (Left: Wrist) Brendan Mathis MD 04/28/20 0718 04/28/20 0754 Events Date Time Event Comment 04/28/2020 0648 0652 AN Equip Check 0718 An Start 0721 An Start Data 0721 In Room 0721 Start Supplemental O2 0723 Time out - Regional 0726 An Block Induction The patie nt was reevaluated immediately before moderate or deep sedation and before anesthesia induction. 0727 Linn block placed 0727 Anesthesia Ready 0749 an stop data 0750 Out of Room 0752 Handoff to RN I completed my handoff to the receiving nurse during which we: 1. Patient identified 2. Responsible provider identified 3. Pertinent medical history reviewed 4. Procedure type and surgical course discussed 5. Intraoperative anesthetic management and any significant issues discussed 6. Expectations and concerns for postop period discussed 7. Questions solicited from receiving nurse 8. Patient disposition at the time of handoff: phase II 0754 An Stop 0815 Release from care Meds Name Total midazolam 2 mg/2 mL 2 mg fentaNYL PF 100 mcg propofol 90 mg lidocaine 0.5% PF 45 mL ondansetron PF 4 mg ketorolac 30 mg ceFAZolin 2,000 mg Lactated Ringer's (LR) infusion 700 mL * Agents Name O2 * Blood No blood administrations on file. Lines, Drains, and Airways Type Details Placement Removal RETIRED Surgical Site Yes; Right; Palm; SURGICAL INCISION; 07/16/24 (Retired LDA, Removed/Completed by [facility] with LDA Utility); 1213 (Retired LDA, Removed/Completed by [facility] with LDA Utility) 04/17/20 1342 by 07/16/24 1213 by Discharge Provider, Automatic RETIRED Surgical Site 02/07/18; 1235; Ba ck; T7 T8 T9 Intercostal; 07/16/24 (Retired LDA, Removed/Completed by [facility] with LDA Utility); 1213 (Retired LDA, Removed/Completed by [facility] with LDA Utility) 02/07/18 1235 by Lupe Awan RN 07/16/24 1213 by Discharge Provider, Automatic RETIRED Surgical Site 05/17/18; 1459; Right; Back; right mid back; 07/16/24 (Retired LDA, Removed/Completed by [facility] with LDA Utility); 1213 (Retired LDA, Removed/Completed by [facility] with LDA Utility) 05/17/18 1459 by Tina Giraldo, MABLE 07/16/24 1213 by Discharge Provider, Automatic RETIRED Surgical Site 10/10/18; 1030; Right; Back; (bandaid dressing applied); 07/16/24 (Retired LDA, Removed/Completed by [facility] with LDA Utility); 1213 (Retired LDA, Removed/Completed by [facility] with LDA Utility) 10/10/18 1030 by Trae Rocha, MABLE 07/16/24 1213 by Discharge Provider, Automatic Peripheral IV Placement Date: 04/28/20; Placement Time: 633; Catheter Size: 20 G; Orientation: Right; Location: Antecubital; Site Prep: Chlorhexidine; Insertion Attempts: 2; Patient Tolerance: Tolerated well; Removal Date: 04/28/20; Removal Time: 08; Removal Reason: Discharge 04/28/20 0634 by Naila Katz RN 04/28/20 0817 by Francisca Schuster RN Peripheral IV Placement Date: 04/28/20; Placement Time: 0640; Catheter Size: 22 G; Orientation: Left; Location: Hand; Site Prep: Alcohol; Insertion Attempts: 1; Patient Tolerance: Tolerated well; Removal Date: 04/28/20; Removal Time: 0740; Removal Reason: Discharge 04/28/20 0640 by Naila Katz RN 04/28/20 0740 by Francisca Schuster RN RETIRED Surgical Site 04/28/20; 0736; Le ft; Wrist; 07/16/24 (Retired LDA, Removed/Completed by [facility] with LDA Utility); 1213 (Retired LDA, Removed/Completed by [facility] with LDA Utility) 04/28/20 0736 by Tish Solo RN 07/16/24 1213 by Discharge Provider, Automatic documented in this encounter Social History Tobacco Use Types Packs/Day Years Used Date Smoking Tobacco: Never Smokeless Tobacco: Former Quit: 05/2011 Alcohol Use Standard Drinks/Week Comments Yes 0 (1 standard drink = 0.6 oz pur e alcohol) RARE 3-4 q year Sex and Gender Information Value Date Recorded Sex Assigned at Not on file Legal Sex Male 1:57 AM GOLF SUPERINTENDENT Gender Identity Male 06/20/2021 2:35 PM GOLF SUPERINTENDENT Sexual Orientation Straight 06/20/2021 2: 35 PM GOLF SUPERINTENDENT documented as of this encounter OR Notes * Anesthesia Postprocedure Evaluation - Brendan Mathis MD - 04/28/2020 8:15 AM CDT Patient: Aleksandar Olsen Procedure Summary Date: 04/28/20 Room / Location: [facility] OPERATING ROOM 4 / [facility] OPERATING ROOM Anesthesia Start: 717 Anesthesia Stop: 753 Procedure: left CARPAL TUNNEL RELEASE, sutures removed from right palm (Left Wrist) Diagnosis: Carpal tunnel syndrome of left wrist (Carpal tunnel syndrome of left wrist [G56.02]) Provider: Angel Nelson MD Responsible Provider: Brendan Mathis MD Anesthesia Type: regional as primary anesthetic, IV regional ASA Status: 2 Anesthesia Type: regional as primary anesthetic, IV regional Last vitals BP 131/90 Pulse 60 Temp 36.5 ??C (97.7 ??F) (Temporal) Resp 16 SpO2 95% Anesthesia Post Evaluation Patient location during evaluation: PACU Patient participation: complete - patient participated Level of consciousness: fully awake Pain score: 0 Pain management: adequate Airway patency: adequate Evidence of recall: no Anesthetic complications: no Cardiovascular status: hemodynamically stable and acceptable Respiratory status: acceptable and room air Hydration status: acceptable Pt is: normothermic Nausea/Vomiting status: none * Anesthesia Procedure Notes - Sondra Villalpando CRNA - 04/28/2020 7:31 AM CDTAssociated Order(s): Sander Block Anesthesia Sander Block Anesthesia Reason for procedure: primary anesthetic Staff: Placed by: DIGITAL DESIGN ENGINEER: Sondra Villalpando CRNA Procedure prep: Preprocedure checklist: patient appropriate for plan, informed consent obtained, surgical consent, risks and benefits discussed, monitors and equipment checked and timeout performed Prep solution: chlorhexadine/alcohol Linn block: Site: left upper extremity Medication injected through: IV placed preoperatively IV gauge: 22g Procedure details: tourniquet - single cuff, patient tolerated procedure well, esmarch applied to extremity, tourniquet inflation verified, injection IV removed and local anesthetic injected Tourniquet inflation pressure: 250 mmHg Assessment: Events: patient tolerated procedure well without complications Additional comments: Forearm tourniquet * Anesthesia Preprocedure Evaluation - Brendan Mathis MD - 04/21/2020 12:48 PM CDT Images from the original note were not included. [facility] for Preoperative Assessment and Planning Preoperative Evaluation Record Evaluation type/location: TPAP from [facility] Planned procedure site: [facility] Date: 04/21/20 NOTE: This note represents a preoperative evaluation initiated via telephone interview. NO PHYSICALEXAM was performed at the time of initial assessment. A physical exam may be added to this note anddocumented below. Anesthesia Evaluation Aleksandar Olsen is a 39 y.o. male Procedure(s): left CARPAL TUNNEL RELEASE Pre-Op Diagnosis Codes: * Carpal tunnel syndrome of left wrist [G56.02] HISTORY HPI 39 year old male with history of anxiety/depression, HTN, HLD, and prior T9 bony tumor removed withneurostimulator placed (routine injections and use of medical marijuana overseen by pain management). He is s/p R carpal tunnel release and is now undergoing evaluation prior to L wrist carpal tunnelrelease. Past Medical History Information obtained from: patient and chart. Neurological + Psychiatric history (on Cymbalta and Zoloft ) - depression and anxiety Pertinent negatives: seizures; neuromuscular disease; CVA/stroke; TIA; CEA; ICA stenosis and carotid artery stent Cardiovascular + Hypertension (on Irbesartan and HCTZ - does not check BP at home ) Hypertension year diagnosed: 2016. + Hyperlipidemia (on statin ) Pertinent negatives: CAD ; VT ; CABG ; systolic/diastolic dysfunction w/o CHF ; valvular heart disease; valve replacement; atrial fibrillation; arrhythmia; pacemaker/ICD; PVD; DVT/PE; negative for CHF; drug-eluting stent(s); bare metal stent(s) and coronary angioplasty Respiratory Pertinent negatives: COPD; asthma; sleep apnea (CELESTINO); pulmonary hypertension and non-smoker Hepatic / Heme Pertinent negatives: liver disease; history of anemia; history of thrombocytopenia and history of Brayan positive Gastrointestinal Pertinent negatives: GERD and hiatal hernia Renal / Pertinent negatives: renal disease and nephrolithiasis Musculoskeletal/Pain + Chronic pain - back pain. Pertinent negatives: chronic opioid use; previous treatment for opioid use disorder and osteoarthritis Comments: T9 bony tumor removed, resulting in chronic pain, with nuerostimulator placed, routine trigger point injections and use of medical marijuana. Endocrine / Other + Obesity (BMI >30) (BMI 34.73) Pertinent negatives: diabetes mellitus; thyroid disease; cancer history; rheumatological disease; transplanted organ and infectious disease Functional Capacity Functional capacity: 4-6 METs Comments: Can walk 4-6 blocks, climb 2 flights of stairs w/o CP or SOB. Review of Systems + chronic pain + numbness/tingling (surgical etiology - L wrist ) + vision loss (glasses/contacts) Pertinent negatives: productive cough; wheezing; SOB; recent cold/flu; fever; chest pain; palpitations; orthopnea; pedal edema; PND; Sickle Cell disease/trait; previous transfusion; melena/hematochezia; easy bruising; bleeding problems; syncope; dizziness; muscle weakness; hard of hearing; heartburn; nausea; dysphagia; diarrhea; dentures/partials; chipped/loose teeth; abdominal pain; diaphoresis and no unexpected weight change Comments: Recent ear infection - finished abx 04/03/2020. PAT Summary and Plans Cardiac risk classification of planned procedure: low cardiac risk. Preoperative assessment status: complete. Additional comments: Aleksandar Olsen is a 39 y.o. male who is being evaluated prior to undergoing alow cardiac risk surgery. Revised Cardiac Risk Index factors are (none) for a total RCRI of 0 out of 6. Functional capacity is 4-6 METs. Hx T9 bony tumor removal with subsequent neurostimulator place for pain management. Patient understands to bring remote the DOS. Preliminary CELESTINO screening not complete, pending neck circumference measurement on day of surgery. Blood bank needs for day of procedure: No type and screen needed Patient with No known exposure to COVID19 and no concerning symptoms of COVID19. Plan for pre-procedure COVID19 testing: Surgery date greater than 4 days from today. Request placed for pre-procedure COVID19 testing to be performed on 04/25/20. [facility] will contact patient to schedule testing. . This assessment was performed via telephone. Therefore the physical exam has been deferred to the day of surgery team. The patient was provided with preoperative instructions for their medications. The patient was instructed to shower/bathe the night prior and the morning of the planned procedure using an antibacterial soap. Patient instructions were provided via telephone. Patient verbalized understanding of preoperative plan. TPAP process complete. Preoperative evaluation performed by Shahrzad Moreno NP on 04/21/20 at 12:55 PM.. Patient Active Problem List Diagnosis ??? Other chronic pain ??? Intercostal neuralgia ??? Myofascial pain ??? Back pain ??? Neck pain ??? Arthritis ??? Cervical radiculopathy ??? Effusion of joint of multiple sites ??? Encounter for preventive health examination ??? Inguinal pain ??? Visual impairment ??? Carpal tunnel syndrome of right wrist ??? Carpal tunnel syndrome of left wrist Past Medical History: Diagnosis Date ??? Anxiety [...] - T9 Tumor excision. 2006. (Added by Conv) ??? KNEE ARTHROSCOPY W/ LATERAL RELEASE Right ??? NERVE BLOCK Nerve Block - (Added by Conv), spine multi ??? SHOULDER SURGERY Rt Shoulder Dislocation surgery ??? SPINAL CORD STIMULATOR IMPLANT Spinal Surgery Neurostimulator Implants - 2010 (Added by Conv), battery pack right lower back No Known Allergies Med List Status: Nurse Complete Set By: Donald Terrell RN at 04/17/2020 1:39 PM Taking? Last Dose Start Date End Date Provider atorvastatin (LIPITOR) 20 mg tablet 04/17/2020 09/04/19 -- Historical Provider, DULoxetine DR (CYMBALTA) 60 mg capsule 04/17/2020 03/20/20 -- Madina Husain NP TAKE 1 CAPSULE(60 MG) BY MOUTH DAILY Patient taking differently: Take 60 mg by mouth every morning hydroCHLOROthiazide (HYDRODIURIL) 25 mg tablet 04/17/2020 01/18/18 -- Historical Provider, irbesartan (AVAPRO) 300 mg tablet 04/17/2020 01/18/18 -- Historical Provider, lidocaine (XYLOCAINE) 5 % ointment 04/17/2020 08/29/19 -- Historical Provider, perflutren lipid (DEFINITY) 1.5 mL in sodium chloride 0.9% 10 mL syringe 06/06/19 -- Provider Scanning 1-10 mL, intravenous, Once in imaging, contrast, Starting Alanis 06/06/19 at 1524, For 1 dose sertraline (ZOLOFT) 50 mg tablet 04/17/2020 08/28/19 -- Historical ProviderMD TENS units (TENS 502) device 04/16/2020 12/13/18 -- Dayanna Crump MD TENS unit with 2-4 electrodes UNABLE TO FIND 04/16/2020 -- -- Historical ProviderMD Current Facility-Administered Medications: ??? perflutren lipid (DEFINITY) 1.5 mL in sodium chloride 0.9% 10 mL syringe, 1- 10 mL, intravenous,Once in imaging Current Outpatient Medications: ??? atorvastatin (LIPITOR) 20 mg tablet ??? DULoxetine DR (CYMBALTA) 60 mg capsule ??? hydroCHLOROthiazide (HYDRODIURIL) 25 mg tablet ??? irbesartan (AVAPRO) 300 mg tablet ??? lidocaine (XYLOCAINE) 5 % ointment ??? sertraline (ZOLOFT) 50 mg tablet ??? TENS units (TENS 502) device ??? UNABLE TO FIND Social History Tobacco Use Smoking Status Never Smoker Smokeless Tobacco Former User Substance and Sexual Activity Alcohol Use Yes Comment: RARE Substance and Sexual Activity Drug Use Yes ??? Frequency: 5.0 times per week ??? Types: Medical marijuana Comment: LAST USED 04/16/2020 Family History Problem Relation Age of Onset ??? Skin cancer Mother Cancer -skin; ??? Other Mother Kidney Problems; ??? Cancer Mother Family history of malignant neoplasm - (Added by TW Conv) ??? Kidney disease Mother ??? Anesthesia problems Mother agressive, fear, thrashing ??? Lung cancer Maternal Grandfather Cancer -lung; ??? Cancer Maternal Grandfather ??? Early Maternal Grandfather ??? Cancer Other Family history of malignant neoplasm - Relation: Grandparent (Added by TW Conv) ??? Hypertension Father Family history of hypertension - (Added by TW Conv) ??? Heart disease Maternal Grandmother There were no vitals filed for this visit. Relevant diagnostics: ECG(s): N/A Echocardiogram(s): Stress Echo - 06/06/2019 Conclusions: Protocol - Jero Protocol. Exercise Time - 9.49 min. Baseline Heart Rate - 65. Peak Heart Rate - 158. Predicted Maximal Heart Rate - 180. 85% MPHR - 153. Baseline BP - 130/84. Peak BP - 178/94. Rate Pressure Product - 70300. METS Achieved - 10.10. Percent Predicted Maximal HR Achieved - 88 %. Normal EKG. Normal exercise ECG. Normal left ventricular size, normal systolic function, normal wall thickness with no segmental wall motion abnormalities at rest. Post exercise left ventricular global systolic contractility is hyperdynamic, no segmental wall motion abnormalities, and chamber size is smaller. Stress echocardiogram negative for inducible ischemia at MPHR: 88 %. Stress test(s): N/A Cardiac catheterization(s): N/A PFT(s): N/A Vascular studies: N/A Other: N/A PT: No results found for requested labs within last 720 hours. INR: No results found for requested labs within last 720 hours. APTT: No results found for requested labs within last 720 hours. Hgb A1C: No results found for requested labs within last 720 hours. CBC RBC: No results found for requested labs within last 720 hours. RDW: No results found for requested labs within last 720 hours. MCHC: No results found for requested labs within last 720 hours. MCH: No results found for requested labs within last 720 hours. MCV: No results found for requested labs within last 720 hours. Hct: No results found for requested labs within last 720 hours. Hgb: No results found for requested labs within last 720 hours. WBC: No results found for requested labs within last 720 hours. MPV: No results found for requested labs within last 720 hours. Platelets: No results found for requested labs within last 720 hours. RDW CV: No results found for requested labs within last 720 hours. RDW Sd: No results found for requested labs within last 720 hours. BMP Glucose: No results found for requested labs within last 720 hours. Calcium: No results found for requested labs within last 720 hours. Sodium: No results found for requested labs within last 720 hours. Potassium: No results found for requested labs within last 720 hours. CO2: No results found for requested labs within last 720 hours. Chloride: No results found for requested labs within last 720 hours. BUN: No results found for requested labs within last 720 hours. Creatinine: No results found for requested labs within last 720 hours. STOP-Bang Total Score: 2 Venkat index score: 95 DOS Physical Exam Medical history, medications, and allergies reviewed. Attestation: This PAT evaluation 04/28/2020. Airway Exam: Mallampati: I Cervical ROM: FROM Cardiovascular Exam: Rate: regular Rhythm: regular Pulmonary Exam: LCTA, bilat Anesthesia Plan ASA 2 My patient is approved for the Anesthesia Controlled Medication protocol when under care of a DIGITAL DESIGN ENGINEER Planned anesthesia: Regional as primary anesthetic and IV regional Informed Consent: Anesthesia plan and risks discussed with patient. Plan and Consent Comments: Scop patch, emesis prophylaxis Known to me from prior visit. 2mg versed, 100ugs fentanyl, zofran 4mg, IV regional, did well. Consent and Attending signature: I and/or my designee have discussed the anesthesia plan, benefits, possible alternatives, parental presence at time of induction (if indicated), and clinically relevant risks that may include dental injury, unintentional awareness, and/or other complications. The patient and/or parent/legal guardian understand, and agree to proceed. All questions answered. documented in this encounter Plan of Treatment Not on file documented as of this encounter Goals Goal Patient Goal Type Associated Problems Recent Progress Patient-Stated? Author CCM Chronic Pain Care Plan Chronic Care Management No change(07/21 7:32 AM GOLF SUPERINTENDENT) No Saran Quiñones RN Note: Problem: Chronic Pain Goals: 1. Minimize further functional decline 2. Maximize quality of life 3. Control pain Strategies: - Activity/exercise program recommendation - Conservative stepwise pain medicine strategy with multi-disciplinary approach - Recommend healthy lifestyle strategies and compensatory methods as needed documented as of this encounter Procedures Procedure Name Priority Date/Time Associated Diagnosis Comments RI AN PROCEDURE PLACEHOLDER Routine 04/28/2020 7:31 AM CDT documented in this encounter Results * RI AN PROCEDURE PLACEHOLDER (04/28/2020 7:31 AM CDT) Narrative Sondra Villalpando CRNA - 04/28/2020 7:31 AM CDT Sondra Villalpando CRNA ? 04/28/2020 ??7:31 AM Linn Block Anesthesia Reason for procedure: primary anesthetic Staff: Placed by: DIGITAL DESIGN ENGINEER: Sondra Villalpando CRNA Procedure prep: Preprocedure checklist: ??patient appropriate for plan, informed consent obtained, surgical consent, risks and benefits discussed, monitors and equipment checked and timeout performed Prep solution: chlorhexadine/alcohol Sander block: Site: left upper extremity Medication injected through: IV placed preoperatively IV gauge: 22g Procedure details: tourniquet - single cuff, patient tolerated procedure well, esmarch applied to extremity, tourniquet inflation verified, injection IV removed and local anesthetic injected Tourniquet inflation pressure: 250 mmHg Assessment: Events: patient tolerated procedure well without complications Additional comments: Forearm tourniquet us Brendan Mathis MD ANESTHESIA ORDERABLES Final Re sult documented in this encounter Visit Diagnoses Not on filedocumented in this encounter Administered Medications Inactive Administered Medications - up to 3 most recent administrations Medication Order MAR Action Action Date Dose Rate Site ceFAZolin (ANCEF) injection Administer over 3 Minutes, As needed, Starting on Mon04/28/20 at 0735, Anesthesia Intra-op Given 04/28/2020 7:35 AM CDT 2,000 mg fentaNYL (SUBLIMAZE) preservative free injection intravenous, As needed, Starting on Mon04/28/20 at 0718, Anesthesia Intra-op Given 04/28/2020 7:23 AM CDT 50 mcg Given 04/28/2020 7:18 AM CDT 50 mcg ketorolac (TORADOL) injection intravenous, As needed, Starting on Mon04/28/20 at 0741, Anesthesia Intra-op Given 04/28/2020 7:41 AM CDT 30 mg lidocaine (XYLOCAINE) 5 mg/mL (0.5 %) preservative free injection intravenous, As needed, Starting on Mon04/28/20 at 0727, Anesthesia Intra-op, Indications: Administration of Local AnesthesiaIndications:Administration of Local Anesthesia Given 04/28/2020 7:27 AM CDT 45 mL midazolam (VERSED) injection intravenous, As needed, Starting on Mon04/28/20 at 0718, Anesthesia Intra-op Given 04/28/2020 7:18 AM CDT 2 mg ondansetron (ZOFRAN) injection intravenous, Administer over 2 Minutes, As needed, Starting on Mon04/28/20 at 0723, Anesthesia Intra-op Given 04/28/2020 7:23 AM CDT 4 mg propofoL (DIPRIVAN) IV intravenous, As needed, Starting on Mon04/28/20 at 0723, Anesthesia Intra-op Given 04/28/2020 7:29 AM CDT 50 mg Given 04/28/2020 7:23 AM CDT 40 mg documented in this encounter Care Teams Geochemistry Teacher Relationship Specialty Start Date End Date Roxanna Moreno MD PCP - General 10/21/16 documented as of this encounter
--- OUTSIDE RECORDS SUMMARY | 2024-08-03 14:55 | XMS_ITS | Encounter Summary ---
Author Organization [facility] Healthcare Address [address] [place] [address] Care Team Providers Care Policy Officer Name Role Phone Roxanna Moreno MD Primary Care Provider + Reason for Visit * Reason Onset Date Comments Appointment Reminder Call 08/20/2020 Encounter Details Date Type Department Care Team (Late st Contact Info) Description 08/20/2020 Telephone [facility] at [address], [address] [place] [phone] Dayanna Crump MD [address] [place] [address] Appointment Reminder Call Social History Tobacco Use Types Packs/Day Years Used Date Smoking Tobacco: Never Smokeless Tobacco: Former Quit: 05/2011 Alcohol Use Standard Drinks/Week Comments Yes 0 (1 standard drink = 0.6 oz pur e alcohol) RARE 3-4 q year Sex and Gender Information Value Date Recorded Sex Assigned at Not on file Legal Sex Male 1:57 AM PROPERTY STAFF ACCOUNTANT Gender Identity Male 06/20/2021 2:35 PM PROPERTY STAFF ACCOUNTANT Sexual Orientation Straight 06/20/2021 2: 35 PM PROPERTY STAFF ACCOUNTANT documented as of this encounter Miscellaneous Notes * Telephone Encounter - Joanne Gutiérrez RN - 08/20/2020 3:15 PM PROPERTY STAFF ACCOUNTANT 1. Remind Patients of our new location. [address] [place] [address]. [facility] [address], [address] 2. Ask them the covid screening questions a. Have you had any respiratory symptoms including cough, shortness of breath/trouble breathing, fever, sudden loss of taste or smell, sore throat, or body aches? Yes [] No [x] b. Are you currently being tested for Covid-19? Yes [] No [x] c. Have you had any contact with a person known to be positive for Covid-19 or is anyone in your household being tested for Covid-19? Yes [] No [x] 3. If the patient answers yes to any of the Covid -19 screening questions they need to be rescheduled for at least 14 days later. 4. Inform patient that only 1 guest/visitor will be allowed into the clinic. If possible, come by themselves. 5. Inform patient they will need to wear a mask, along with any guest they bring with them. Procedure Patients 1. Are you on any blood thinners? Yes [] No [x] 2. Are you currently on any antibiotics? Yes [] No [x] 3. Have you had a fever in the last 7 days? Yes [] No[x] 4. Are you diabetic? Yes [] No [x] 5. Do you have a driver messenger? (only ask if needed) Yes [x] No [] 6. NPO status? (only ask if needed) Yes [] No [] ERTY STAFF ACCOUNTANT documented in this encounter Plan of Treatment Not on file documented as of this encounter Goals Goal Patient Goal Type Associated Problems Recent Progress Patient-Stated? Author CCM Chronic Pain Care Plan Chronic Care Management No change(07/21 7:32 AM PROPERTY STAFF ACCOUNTANT) No Saran Quiñones, MABLE Note: Problem: Chronic Pain Goals: 1. Minimize further functional decline 2. Maximize quality of life 3. Control pain Strategies: - Activity/exercise program recommendation - Conservative stepwise pain medicine strategy with multi-disciplinary approach - Recommend healthy lifestyle strategies and compensatory methods as needed documented as of this encounter Visit Diagnoses Not on filedocumented in this encounter Care Teams Policy Officer Relationship Specialty Start Date End Date Roxanna Moreno MD PCP - General 10/21/16 documented as of this encounter
--- OUTSIDE RECORDS SUMMARY | 2024-08-03 14:56 | XMS_ITS | Encounter Summary ---
Author Organization [facility] Healthcare Address [address] [place] [address] Care Team Providers Care Drawing In Machine Tender Name Role Phone Roxanna Moreno MD Primary Care Provider + Reason for Visit * Diagnostic Imaging (Routine) - Closed Specialty Diagnoses / Procedures Referred By Contmarsha t Referred To Contact Diagnoses Mid back pain Procedures FL Fluoro Guided Needle Placement Dayanna Crump MD Phone: tel: fax: [address] [phone] Referral ID Status Reason Start Date Expiration Date Visits Re quested Visits Authorized [id number] Closed 02/10/2020 08/21/2021 1 1 Encounter Details Date Type Department Care Team (Late st Contact Info) Description 02/11/2020 9:30 AM CDT Ancillary Procedure [facility] at [address] [address] Dayanna Crump MD [address] [place] [address] Mid back pain Social History Tobacco Use Types Packs/Day Years Used Date Smoking Tobacco: Never Smokeless Tobacco: Former Quit: 05/2011 Alcohol Use Standard Drinks/Week Comments Yes 0 (1 standard drink = 0.6 oz pur e alcohol) Sex and Gender Information Value Date Recorded Sex Assigned at Not on file Legal Sex Male 1:57 AM FORM CARPENTER Gender Identity Male 06/20/2021 2:35 PM FORM CARPENTER Sexual Orientation Straight 06/20/2021 2: 35 PM FORM CARPENTER documented as of this encounter Plan of Treatment Not on file documented as of this encounter Procedures Procedure Name Priority Date/Time Associated Diagnosis Comments FLUORO GUIDED NEEDLE PLACEMENT Schedule Routine, Read Routine (OP Routine) 02/11/2020 10:09 AM CDT Mid back pain documented in this encounter Results * FL Fluoro Guided Needle Placement (02/11/2020 10:09 AM CDT) Narrative [facility] - 02/11/2020 10:10 AM CDT The images from this study are not interpreted by Radiology. ??Please refer to the physician's procedure / OR operative note. us Dayanna Crump MD IMG FLUOROSCOPY [employer] Final Result [facility] documented in this encounter Visit Diagnoses Diagnosis Mid back pain documented in this encounter Care Teams Drawing In Machine Tender Relationship Specialty Start Date End Date Roxanna Moreno MD PCP - General 10/21/16 documented as of this encounter
--- OUTSIDE RECORDS SUMMARY | 2024-08-03 14:56 | XMS_ITS | Encounter Summary ---
Author Organization [facility] Healthcare Address [address] [place] [address] Care Team Providers Care Major Assembler Name Role Phone Roxanna Moreno MD Primary Care Provider + Reason for Visit * Reason Onset Date Comments Pre call 02/07/2020 Encounter Details Date Type Department Care Team (Late st Contact Info) Description 02/07/2020 Telephone [place] [id number] [phone] Sondra Cabrera RN Pre call Social History Tobacco Use Types Packs/Day Years Used Date Smoking Tobacco: Never Smokeless Tobacco: Former Quit: 05/2011 Alcohol Use Standard Drinks/Week Comments Yes 0 (1 standard drink = 0.6 oz pur e alcohol) Sex and Gender Information Value Date Recorded Sex Assigned at Not on file Legal Sex Male 1:57 AM NEUROSURGERY RESEARCH DIRECTOR Gender Identity Male 06/20/2021 2:35 PM NEUROSURGERY RESEARCH DIRECTOR Sexual Orientation Straight 06/20/2021 2: 35 PM NEUROSURGERY RESEARCH DIRECTOR documented as of this encounter Miscellaneous Notes * Telephone Encounter - Sondra Cabrera RN - 02/07/2020 10:46 AM CDT See preproc * Pre-Procedure Instructions - Sondra Cabrera RN - 02/07/2020 10:45 AM CDT Voicemail message left with the following information: ? ? Procedure Date & Time: 02/11/20 8:45 ??? Arrival 15 minutes prior to appointment ??? Discharge transportation is needed ??? Oral intake: [x] Able to eat, drink, and take medications as normal. [] No solid food for 6 hours; No liquids for 3 hours; Take medications with sips of water. ??? Blood thinner: [x] Notify the office immediately if taking a new blood thinner ??? Lab work [] Lab work is required prior to the procedure. Please arrive 1 hour early to have the following test: [] CBC [] PT/INR ??? Notify the office if fever, cough, SOB, or body aches present in the last seven days, or currently on antibiotics. documented in this encounter Plan of Treatment Not on file documented as of this encounter Visit Diagnoses Not on filedocumented in this encounter Care Teams Major Assembler Relationship Specialty Start Date End Date Roxanna Moreno MD PCP - General 10/21/16 documented as of this encounter
--- OUTSIDE RECORDS SUMMARY | 2024-08-03 14:56 | XMS_ITS | Encounter Summary ---
Author Organization [facility] Healthcare Address [address] [place] [address] Care Team Providers Care [employer] Name Role Phone Roxanna Moreno MD Primary Care Provider + Encounter Details Date Type Department Care Team (Late st Contact Info) Description 04/14/2020 7:18 AM CDT Anesthesia Event [facility] [address] [place] [id number] Brendan Mathis MD [address] [facility] [address] [place] [address] Vanda Ignacio NP [address] [facility] [phone] [place] [address] Anesthesia Record Procedure Summary Procedure Name Responsible Anesthesiologist Anesthesia Start Time Anesthesia Stop Time right CARPAL TUNNEL RELEASE (Right: Wrist) Brendan Mathis MD 04/14/20 0718 04/14/20 0802 Events Date Time Event Comment 04/14/2020 0634 0648 AN Equip Check 0718 An Start 0720 In Room 0721 An Start Data 0722 Start Supplemental O2 0722 Time out - Regional 0727 An Block Induction The patie nt was reevaluated immediately before moderate or deep sedation and before anesthesia induction. 0727 [place] block placed 0728 Incision Start 0729 Anesthesia Ready 0732 Quick Note L wrist IV blow n. Will restart IV 0756 an stop data 0758 Out of Room 0800 Handoff to RN I completed my handoff [...] at the time of handoff: phase II 08 An Stop 0844 Release from care Meds Name Total midazolam 2 mg/2 mL 2 mg fentaNYL PF 100 mcg propofol 100 mg lidocaine 0.5% PF 40 mL ondansetron PF 4 mg ceFAZolin (ANCEF) 100 mg/mL sterile wate r 2,000 mg 2,000 mg Lactated Ringer's (LR) infusion 400 mL * Agents Name O2 * Blood No blood administrations on file. Lines, Drains, and Airways Type Details Placement Removal RETIRED Surgical Site 02/07/18; 1235; Ba ck; T7 T8 T9 Intercostal; 07/16/24 (Retired LDA, Removed/Completed by [facility] with LDA Utility); 1213 (Retired LDA, Removed/Completed by Epic with LDA Utility) 02/07/18 1235 by Lupe Awan RN 07/16/24 1213 by Discharge Provider, Automatic RETIRED Surgical Site 05/17/18; 1459; Ri ght; Back; right mid back; 07/16/24 (Retired LDA, Removed/Completed by Epic with LDA Utility); 1213 (Retired LDA, Removed/Completed by Epic with LDA Utility) 05/17/18 1459 by Tina Giraldo RN 07/16/24 1213 by Discharge Provider, Automatic RETIRED Surgical Site 10/10/18; 1030; Ri ght; Back; (bandaid dressing applied); 07/16/24 (Retired LDA, Removed/Completed by Epic with LDA Utility); 1213 (Retired LDA, Removed/Completed by Epic with LDA Utility) 10/10/18 1030 by Trae Rocha, RN 07/16/24 1213 by Discharge Provider, Automatic Peripheral IV Placement Date: 04/14/20; Placement Time: 0623; Catheter Size: 20 G; Orientation: Left; Location: Hand; Site Prep: Chlorhexidine; Insertion Attempts: 2; Patient Tolerance: Tolerated well; Removal Date: 04/28/20; Removal Time: 0641; Removal Reason: Not present on admission 04/14/20 0623 by Francisca Salinas RN 04/28/20 0641 by Naila Katz RN Peripheral IV Placement Date: 04/14/20; Placement Time: 622; Catheter Size: 22 G; Orientation: Right; Location: Hand; Site Prep: Chlorhexidine; Technique: Anatomical landmarks; Insertion Attempts: 1; Patient Tolerance: Tolerated well; Removal Date: 04/28/20; Removal Time: 06; Removal Reason: Not present on admission 04/14/20 0623 by Francisca Salinas RN 04/28/20 0641 by Naila Katz RN RETIRED Surgical Site 04/14/20; 0738; Wv ght; Arm; 04/14/20; 0835; Discharge 04/14/20 0738 by Kya Fischer RN 04/14/20 0835 by Carmenza Christie RN Peripheral IV Placement Date: 04/14/20; Placement Time: 740 (created via procedure documentation); Catheter Size: 22 G; Orientation: Left; Location: Antecubital; Site Prep: Alcohol; Insertion Attempts: 1; Removal Date: 04/14/20; Removal Time: 08; Removal Reason: Discharge 04/14/20 0741 by Sondra Villalpando, FOREST BIOMETRICS PROFESSOR 04/14/20 0835 by Carmenza Christie RN documented in this encounter Social History Tobacco Use Types Packs/Day Years Used Date Smoking Tobacco: Never Smokeless Tobacco: Former Quit: 05/2011 Alcohol Use Standard Drinks/Week Comments Yes 0 (1 standard drink = 0.6 oz pur e alcohol) RARE Sex and Gender Information Value Date Recorded Sex Assigned at Not on file Legal Sex Male 1:57 AM CASH RECONCILIATION SPECIALIST Gender Identity Male 06/20/2021 2:35 PM CASH RECONCILIATION SPECIALIST Sexual Orientation Straight 06/20/2021 2: 35 PM CASH RECONCILIATION SPECIALIST documented as of this encounter OR Notes * Anesthesia Postprocedure Evaluation - Brendan Mathis MD - 04/14/2020 8:44 AM CDT Patient: Aleksandar Olsen Procedure Summary Date: 04/14/20 Room / Location: [facility] OPERATING [facility]OM 4 / [facility] Anesthesia Start: 717 Anesthesia Stop: 801 Procedure: right CARPAL TUNNEL RELEASE (Right Wrist) Diagnosis: Carpal tunnel syndrome of right wrist (Carpal tunnel syndrome of right wrist [G56.01]) Provider: Angel Nelson MD Responsible Provider: Brendan Mathis MD Anesthesia Type: regional as primary anesthetic, IV regional ASA Status: 2 Anesthesia Type: regional as primary anesthetic, IV regional Last vitals BP 127/90 Pulse 51 Temp 36.3 ??C (97.3 ??F) (Temporal) Resp 17 SpO2 96% Anesthesia Post Evaluation Patient location during evaluation: [...] Procedure Notes - Sondra Villalpando CRNA - 04/14/2020 7:46 AM CDTAssociated Order(s): Sander Block Anesthesia [place] Block Anesthesia Reason for procedure: primary anesthetic Staff: Placed by: FOREST BIOMETRICS PROFESSOR: Sondra Villalpando CRNA Procedure prep: Preprocedure checklist: patient identified, patient appropriate for plan, informed consent obtained, surgical consent, risks and benefits discussed, monitors and equipment checked and timeout performed Prep solution: chlorhexadine/alcohol Sander block: Site: right upper extremity Medication injected through: IV placed preoperatively IV gauge: 22g Procedure details: tourniquet - single cuff, patient tolerated procedure well, esmarch applied to extremity, tourniquet inflation verified, local anesthetic injected and injection IV removed Tourniquet inflation pressure: 250 mmHg Assessment: Events: patient tolerated procedure well without complications Additional comments: Forearm tourniquet * Anesthesia Procedure Notes - Sondra Villalpando CRNA - 04/14/2020 7:40 AM CDTAssociated Order(s): Peripheral IV Catheter Peripheral IV Catheter Patient location: OR Staff: Placed by: FOREST BIOMETRICS PROFESSOR: Sondra Villalpando CRNA Preprocedure prep: Prep solution: alcohol PPE: gloves and provider hat/mask PIV line: Laterality: left Site: antecubital Catheter size: 22 g Technique: anatomical landmarks Procedure details: good blood return Number of attempts: 1 Assessment: Events: patient tolerated procedure well with no complications * Anesthesia Preprocedure Evaluation - Brendan Mathis MD - 04/03/2020 8:21 AM CDT Images from the original note were not included. [facility] for Preoperative Assessment and Planning Preoperative Evaluation Record Evaluation type/location: TPAP from [facility] Planned procedure site: [facility] Date: 04/03/20 NOTE: This note represents a preoperative evaluation initiated via telephone interview. NO PHYSICALEXAM was performed at the time of initial assessment. A physical exam may be added to this note anddocumented below. Anesthesia Evaluation Aleksandar Olsen is a 39 y.o. male Procedure(s): right CARPAL TUNNEL RELEASE Pre-Op Diagnosis Codes: * Carpal tunnel syndrome of right wrist [G56.01] HISTORY HPI Planned right carpal tunnel release. PMHx - HTN, prior T9 bony tumor removed with neurostimulator placed, routine injections, and use ofmedical marijuana overseen by pain management, obesity. Past Medical History Information obtained from: patient and chart. Neurological + Psychiatric history - depression and anxiety Pertinent negatives: seizures; neuromuscular disease; CVA/stroke and TIA Cardiovascular + Hypertension Hypertension year diagnosed: 2016. Pertinent negatives: CAD ; TN ; CABG ; valvular heart disease; atrial fibrillation; pacemaker/ICD; PVD; DVT/PE; negative for CHF; drug-eluting stent(s) and bare metal stent(s) Respiratory Pertinent negatives: non-smoker Respiratory system: negative Hepatic / Heme Hepatic/Heme system: negative Gastrointestinal GI system: negative Renal / Renal/ system: negative Musculoskeletal/Pain + Chronic pain - back pain. Pertinent negatives: chronic opioid use and osteoarthritis Comments: T9 bony tumor removed, resulting in chronic pain, with nuerostimulator placed, routine trigger point injections and use of medical marijuana. Endocrine / Other + Obesity (BMI >30) Pertinent negatives: diabetes mellitus; thyroid disease; cancer history; rheumatological disease; transplanted organ and infectious disease Functional Capacity Functional capacity: 4-6 METs Comments: Can walk 4-6 blocks, climb 2 flights of stairs w/o CP or SOB. Review of Systems + chronic pain + numbness/tingling (surgical etiology) + vision loss (glasses/contacts) Pertinent negatives: productive cough; SOB; recent cold/flu; fever; chest pain; palpitations; orthopnea; PND; previous transfusion; bleeding problems; syncope; dizziness; hard of hearing; nausea; dysphagia; diarrhea; dentures/partials and abdominal pain Comments: Recent ear infection - finished abx [...] 4-6 METs. Hx T9 bony tumor removal wit subsequent neurostimulator place for pain management. Patient understands to bring remote the DOS. Obstructive sleep apnea (CELESTINO) screening status is STOP-Bang=3 suggesting moderate risk for CELESTINO. Thepatient is at elevated risk for obstructive sleep apnea (CELESTINO) per STOP-BANG screening questionnaireresults. Patient informed of the possibility that they have undiagnosed CELESTINO, which may increase their risk for perioperative respiratory events. Patient also informed of the possible long-term healthproblems associated with CELESTINO. Because we do not feel that preoperative CELESTINO testing is likely to outweigh the downsides of delaying surgery, we have recommended that the patient talk to their primary doctor or other clinician after surgery about getting tested for CELESTINO. Blood bank needs for day of procedure: No type and screen needed Patient with No known exposure to COVID19 and no concerning symptoms of COVID19. Plan for pre-procedure COVID19 testing: Telephone assessment performed. Pre- procedure COVID19 testing scheduled to be performed on 04/11/2020 at [facility]. . This assessment was performed via telephone. Therefore the physical exam has been deferred to the day of surgery team. The patient was provided with preoperative instructions for their medications. The patient was instructed to shower/bathe the night prior and the morning of the planned procedure using an antibacterial soap. Patient instructions were provided in writing sent via [employer] mail & telephone. Patient verbalized understanding of preoperative plan. TPAP process complete. Preoperative evaluation performed by Vanda Mccarty NP on 04/03/20 at 8:30 AM.. Patient Active Problem List Diagnosis ??? Other chronic pain ??? Intercostal neuralgia ??? Myofascial pain ??? Back pain ??? Neck pain ??? Arthritis ??? Cervical radiculopathy ??? Effusion of joint of multiple sites ??? Encounter for preventive health examination ??? Inguinal pain ??? Visual impairment ??? Carpal tunnel syndrome of right wrist Past Medical History: Diagnosis Date ??? Anxiety ??? Back pain ??? Hyperlipidemia ??? Hypertension ??? Medical marijuana use ??? Neck pain ??? Osteoid osteoma T9 - removed ??? Pain management ??? PONV (postoperative nausea and vomiting) Past Surgical History: Procedure Laterality Date ??? ANTERIOR CRUCIATE LIGAMENT REPAIR ACL Reconstruction ??? BACK SURGERY Back Surgery - T9 Tumor excision. 2006. (Added by Conv) ??? KNEE ARTHROSCOPY W/ LATERAL RELEASE Right ??? KNEE SURGERY Knee Surgery - Right knee lateral release. 1995. Right Knee ACL Reconstuction. 1996. Right Knee Scope. 2001, 2008. (Added by TW Conv) ??? NERVE BLOCK Nerve Block - (Added by TW Conv) ??? SHOULDER SURGERY Shoulder Surgery - Right shoulder reconstruction. 1993. (Added by TW Conv) ??? SHOULDER SURGERY Rt Shoulder Dislocation surgery ??? SPINAL CORD STIMULATOR IMPLANT Spinal Surgery Neurostimulator Implants - 2010 (Added by Conv) No Known Allergies Med List Status: Nurse Complete Set By: Donald Terrell RN at 04/02/2020 1:48 PM Taking? Last Dose Start Date End Date Provider atorvastatin (LIPITOR) 20 mg tablet 04/02/2020 09/04/19 -- Historical Provider, cephalexin (KEFLEX) 500 mg capsule 04/02/2020 03/20/20 04/03/20 Historical Provider, DULoxetine DR (CYMBALTA) 60 mg capsule 04/02/2020 03/20/20 -- Madina Husain, SERA TAKE 1 CAPSULE(60 MG) BY MOUTH DAILY Patient taking differently: Take 60 mg by mouth every morning hydroCHLOROthiazide (HYDRODIURIL) 25 mg tablet 04/02/2020 01/18/18 -- Historical Provider, irbesartan (AVAPRO) 300 mg tablet 04/02/2020 01/18/18 -- Historical Provider, lidocaine (XYLOCAINE) 5 % ointment 04/01/2020 08/29/19 -- Historical Provider, perflutren lipid (DEFINITY) 1.5 mL in sodium chloride 0.9% 10 mL syringe 06/06/19 -- Provider Scanning 1-10 mL, intravenous, Once in imaging, contrast, Starting Alanis 06/06/19 at 1524, For 1 dose sertraline (ZOLOFT) 50 mg tablet 04/02/2020 08/28/19 -- Historical Provider, TENS units (TENS 502) device 12/13/18 -- Dayanna Crump MD TENS unit with 2-4 electrodes UNABLE TO FIND -- -- Historical Provider, Current Facility-Administered Medications: ??? perflutren lipid (DEFINITY) 1.5 mL in sodium chloride 0.9% 10 mL syringe, 1- 10 mL, intravenous,Once in imaging Current Outpatient Medications: ??? atorvastatin (LIPITOR) 20 mg tablet ??? cephalexin (KEFLEX) 500 mg capsule ??? DULoxetine DR (CYMBALTA) 60 mg capsule ??? hydroCHLOROthiazide (HYDRODIURIL) 25 mg tablet ??? irbesartan (AVAPRO) 300 mg tablet ??? lidocaine (XYLOCAINE) 5 % ointment ??? sertraline (ZOLOFT) 50 mg tablet ??? UNABLE TO FIND ??? TENS units (TENS 502) device Social History Tobacco Use Smoking Status Never Smoker Smokeless Tobacco Former User Substance and Sexual Activity Alcohol Use Yes Comment: RARE Substance and Sexual Activity Drug Use Yes ??? Frequency: 5.0 times per week ??? Types: Medical marijuana Family History Problem Relation Age of Onset [...] vitals filed for this visit. Relevant diagnostics: Stress test(s): Stress Echo - 06/06/2019 Conclusions: Protocol - Jero Protocol. Exercise Time - 9.49 min. Baseline Heart Rate - 65. Peak Heart Rate - 158. Predicted Maximal Heart Rate - 180. 85% MPHR - 153. Baseline BP - 130/84. Peak BP - 178/94. Rate Pressure Product - 93259. METS Achieved - 10.10. Percent Predicted Maximal [...] for inducible ischemia at MPHR: 88 %. PT: No results found for requested labs [...] within last 720 hours. STOP-Bang Total Score: 3 Venkat index score: 100 DOS Physical Exam Medical history, medications, and allergies reviewed. Attestation: This PAT evaluation 04/14/2020. Airway Exam: Mallampati: I Cervical ROM: FROM Cardiovascular Exam: Rate: regular Rhythm: regular Pulmonary Exam: LCTA, bilat Anesthesia Plan ASA 2 My patient is approved for the Anesthesia Controlled Medication protocol when under care of a FOREST BIOMETRICS PROFESSOR Planned anesthesia: Regional as primary anesthetic and IV regional Informed Consent: Anesthesia plan and risks discussed with patient. Plan and Consent Comments: Scop patch, emesis prophylaxis Consent and Attending signature: I and/or my [...] Chronic Care Management No change(07/21 7:32 AM CASH RECONCILIATION SPECIALIST) No Saran Quiñones RN Note: Problem: Chronic Pain Goals: 1. Minimize further functional decline 2. Maximize quality of life 3. Control pain Strategies: - Activity/exercise program recommendation - Conservative stepwise pain medicine strategy with multi-disciplinary approach - Recommend healthy lifestyle strategies and compensatory methods as needed documented as of this encounter Procedures Procedure Name Priority Date/Time Associated Diagnosis Comments NE AN PROCEDURE PLACEHOLDER Routine 04/14/2020 7:46 AM CDT NE AN PROCEDURE PLACEHOLDER Routine 04/14/2020 7:40 AM CDT documented in this encounter Results * NE AN PROCEDURE PLACEHOLDER (04/14/2020 7:46 AM CDT) Sondra Contreras CRNA - 04/14/2020 7:46 AM CDT Sondra Villalpando CRNA ? 04/14/2020 ??7:47 AM Sander Block Anesthesia Reason for procedure: primary anesthetic Staff: Placed by: FOREST BIOMETRICS PROFESSOR: Sondra Villalpando CRNA Procedure prep: Preprocedure checklist: ??patient identified, patient appropriate for plan, informed consent obtained, surgical consent, risks and benefits discussed, monitors and equipment checked and timeout performed Prep solution: chlorhexadine/alcohol [place] block: Site: right upper extremity Medication injected through: IV placed preoperatively IV gauge: 22g Procedure details: tourniquet - single cuff, patient tolerated procedure well, esmarch applied to extremity, tourniquet inflation verified, local anesthetic injected and injection IV removed Tourniquet inflation pressure: 250 mmHg Assessment: Events: patient tolerated procedure well without complications Additional comments: Forearm tourniquet us Brendan Mathis MD ANESTHESIA ORDERABLES Final Re sult * NE AN PROCEDURE PLACEHOLDER (04/14/2020 7:40 AM CDT) Sondra Contreras CRNA - 04/14/2020 7:40 AM CDT Sondra Villalpando CRNA ? 04/14/2020 ??7:41 AM Peripheral IV Catheter Patient location: OR Staff: Placed by: FOREST BIOMETRICS PROFESSOR: Sondra Villalpando CRNA Preprocedure prep: Prep solution: alcohol PPE: gloves and provider hat/mask PIV line: Laterality: left Site: antecubital Catheter size: 22 g Technique: anatomical landmarks Procedure details: good blood return Number of attempts: 1 Assessment: Events: patient tolerated procedure well with no complications us Brendan Mathis MD ANESTHESIA ORDERABLES Final Re sult documented in this encounter Visit Diagnoses Not on filedocumented in this encounter Administered Medications Inactive Administered Medications - up to 3 most recent administrations Medication Order MAR Action Action Date Dose Rate Site ceFAZolin (ANCEF) 100 mg/mL sterile water 2,000 mg 2,000 mg, intravenous, at 400 mL/hr, Administer over 3 Minutes, Once, On Mon04/14/20 at 0615, For 1 dose, Indications: Prophylaxis, SurgicalIndications:Prophylaxis, Surgical Given 04/14/2020 7:23 AM CDT 2,000 mg fentaNYL (SUBLIMAZE) preservative free injection intravenous, As needed, Starting on Mon04/14/20 at 0718, Anesthesia Intra-op Given 04/14/2020 7:18 AM CDT 100 mcg lidocaine (XYLOCAINE) 5 mg/mL (0.5 %) preservative free injection intravenous, As needed, Starting on Mon04/14/20 at 0726, Anesthesia Intra-op, Indications: Administration of Local AnesthesiaIndications:Administra tion of Local Anesthesia Given 04/14/2020 7:26 AM CDT 40 mL midazolam (VERSED) injection intravenous, As needed, Starting on Mon04/14/20 at 0718, Anesthesia Intra-op Given 04/14/2020 7:18 AM CDT 2 mg ondansetron (ZOFRAN) injection intravenous, Administer over 2 Minutes, As needed, Starting on Mon04/14/20 at 0727, Anesthesia Intra-op Given 04/14/2020 7:27 AM CDT 4 mg propofoL (DIPRIVAN) IV intravenous, As needed, Starting on Mon04/14/20 at 0741, Anesthesia Intra-op Given 04/14/2020 7:41 AM CDT 30 mg Given 04/14/2020 7:29 AM CDT 30 mg Given 04/14/2020 7:27 AM CDT 40 mg documented in this encounter Care Teams [employer] Aircrew[employer] Mechanical Relationship Specialty Start Date End Date Roxanna Moreno MD PCP - General 10/21/16 documented as of this encounter
--- OUTSIDE RECORDS SUMMARY | 2024-08-03 14:56 | XMS_ITS | Encounter Summary ---
Author Organization [facility] Healthcare Address [address] [place] [address] Care Team Providers Care Traffic Maintenance Officer Name Role Phone Roxanna Moreno MD Primary Care Provider + Dayanna Crump MD Unavailable [phone] Reason for Visit * Reason Onset Date Comments precall 03/23/2020 Encounter Details Date Type Department Care Team (Late st Contact Info) Description 03/23/2020 Telephone [facility] [place] [id number] [phone] Lupe Awan RN precall Social History Tobacco Use Types Packs/Day Years Used Date Smoking Tobacco: Never Smokeless Tobacco: Former Quit: 05/2011 Alcohol Use Standard Drinks/Week Comments Yes 0 (1 standard drink = 0.6 oz pur e alcohol) Sex and Gender Information Value Date Recorded Sex Assigned at Not on file Legal Sex Male 1:57 AM VICE PRESIDENT MEDICAL AFFAIRS Gender Identity Male 06/20/2021 2:35 PM VICE PRESIDENT MEDICAL AFFAIRS Sexual Orientation Straight 06/20/2021 2: 35 PM VICE PRESIDENT MEDICAL AFFAIRS documented as of this encounter Plan of Treatment Not on file documented as of this encounter Goals Goal Patient Goal Type Associated Problems Recent Progress Patient-Stated? Author CCM Chronic Pain Care Plan Chronic Care Management No change(07/21 7:32 AM VICE PRESIDENT MEDICAL AFFAIRS) No Saran Quiñones, RN Note: Problem: Chronic Pain Goals: 1. Minimize further functional decline 2. Maximize quality of life 3. Control pain Strategies: - Activity/exercise program recommendation - Conservative stepwise pain medicine strategy with multi-disciplinary approach - Recommend healthy lifestyle strategies and compensatory methods as needed documented as of this encounter Visit Diagnoses Not on filedocumented in this encounter Care Teams Traffic Maintenance Officer Relationship Specialty Start Date End Date Roxanna Moreno MD PCP - General 10/21/16 Dayanna Crump MD Consulting Physician Pain Management 01/30/23 documented as of this encounter
--- OUTSIDE RECORDS SUMMARY | 2024-08-03 14:56 | XMS_ITS | Encounter Summary ---
Author Organization [facility] Healthcare Address [address] [place] [address] Care Team Providers Care Tumor Registrar Name Role Phone Roxanna Moreno MD Primary Care Provider + Reason for Referral * Diagnostic Imaging (Routine) - Closed Specialty Diagnoses / Procedures Referred By Contac t Referred To Contact Diagnoses Neck pain Procedures XR Spine Cervical Rtn W Flexion And Extension 6+ View Roxanna Valdez NP [address] [place] [address] Phone: tel: fax: [place] [phone] [place] [address] Referral ID Status Reason Start Date Expiration Date Visits Re quested Visits Authorized [id number] Closed 01/08/2020 07/19/2021 1 1 Reason for Visit * Diagnostic Imaging (Routine) - Closed Specialty Diagnoses / Procedures Referred By Contac t Referred To Contact Diagnoses Neck pain Procedures XR Spine Cervical Rtn W Flexion And Extension 6+ View Roxanna Valdez NP [address] [place] [address] Phone: tel: fax: [place] [phone] [place] [address] Referral ID Status Reason Start Date Expiration Date Visits Re quested Visits Authorized [id number] Closed 01/08/2020 07/19/2021 1 1 Encounter Details Date Type Department Care Team (Latest Contact Info) Description 01/14/2020 2:09 PM CDT - 01/14/2020 11:59 PM CDT Hospital Encounter [id number] [address] [facility] [address] [place] [phone] [place] [address] [place] [address] Roxanna Valdez, SERA [address] [place] [address] Neck pain Discharge Disposition: Discharge to home or self care Social History Tobacco Use Types Packs/Day Years Used Date Smoking Tobacco: Never Smokeless Tobacco: Former Quit: 05/2011 Alcohol Use Standard Drinks/Week Comments Yes 0 (1 standard drink = 0.6 oz pur e alcohol) Sex and Gender Information Value Date Recorded Sex Assigned at Not on file Legal Sex Male 1:57 AM FIRST ASSISTANT MANAGER Gender Identity Male 06/20/2021 2:35 PM FIRST ASSISTANT MANAGER Sexual Orientation Straight 06/20/2021 2: 35 PM FIRST ASSISTANT MANAGER documented as of this encounter Medications at Time of Discharge irbesartan (AVAPRO) 300 mg tabletIndication s:hypertension Take 1 tablet (300 mg total) by mouth every morning 3 01/18/2018 sertraline (ZOLOFT) 50 mg tabletIndication s:Anxiety with Depression Take 1 tablet (50 mg total) by mouth every morning 08/28/2019 TENS units (TENS 502) device TENS unit with 2-4 electrodes 1 Device 12/13/2018 atorvastatin (LIPITOR) 20 mg tabletIndication s:hyperlipidemia Take 20 mg by mouth every morning 09/04/[address] (CYMBALTA) 60 mg capsule TAKE 1 CAPSULE(60 MG) BY MOUTH DAILY 30 capsule 1 11/27/2019 0 gabapentin (NEURONTIN) 600 mg tablet Take 600 mg by mouth 3 (three) times a day. One and half tablets 03/03/2016 0 hydroCHLOROthiaz jamaica (HYDRODIURIL) 25 mg tabletIndication s:hypertension Take 25 mg by mouth every morning 2 01/18/2018 2 lidocaine (XYLOCAINE) 5 % ointment Apply topically 2 (two) times a day as needed for pain 08/29/2019 1 documented as of this encounter Discharge Disposition Disposition Code Departure Means Destination Discharge to home or self care documented in this encounter Plan of Treatment Not on file documented as of this encounter Procedures Procedure Name Priority Date/Time Associated Diagnosis Comments XR SPINE CERVICAL W FLEXION AND EXTENSION 6 OR MORE VIEWS Schedule Routine, Read Routine (OP Routine) 01/14/2020 2:17 PM CDT Neck pain documented in this encounter Results * XR Spine Cervical Rtn W Flexion And Extension 6+ View (01/14/2020 2:17 PM CDT) Anatomical Region Laterality Modality Spine N/A Computed Radiogr aphy 01/14/2020 2:22 PM CDT Impressions 01/14/2020 2:22 PM CDT 1. Mild C5-C6 degenerative disc disease. 2. Mild bilateral C7-T1 neural foraminal stenosis. Electronically signed by: Lucas Michael M.D. Narrative 01/14/2020 2:22 PM CDT EXAMINATION: Cervical spine 6 or more views HISTORY: ??Neck pain FINDINGS: 6 views of the cervical spine are submitted for interpretation. No prior examination is available for comparison. The alignment of the cervical spine is anatomic. There is mild C5-C6 degenerative disc disease. On flexion and extension, there is normal motion. On the oblique radiographs, there is mild bilateral C7-T1 neural foraminal stenosis. The prevertebral soft tissues are normal. There is no fracture. Procedure Note Lucas Michael MD - 01/14/2020 EXAMINATION: Cervical spine 6 or more views HISTORY: Neck pain FINDINGS: 6 views of the cervical spine are submitted for interpretation. No prior examination is available for comparison. The alignment of the cervical spine is anatomic. There is mild C5-C6 degenerative disc disease. On flexion and extension, there is normal motion. On the oblique radiographs, there is mild bilateral C7-T1 neural foraminal stenosis. The prevertebral soft tissues are normal. There is no fracture. IMPRESSION: 1. Mild C5-C6 degenerative disc disease. 2. Mild bilateral C7-T1 neural foraminal stenosis. Electronically signed by: Lucas Michael M.D. Roxanna Valdez COORDINATE MEASURING MACHINE TECHNICIAN IMG XR PROCEDURES Final Result documented in this encounter Visit Diagnoses Diagnosis Neck pain Cervicalgia documented in this encounter Care Teams Tumor Registrar Relationship Specialty Start Date End Date Roxanna Moreno MD PCP - General 10/21/16 documented as of this encounter
--- OUTSIDE RECORDS SUMMARY | 2024-08-03 14:56 | XMS_ITS | Encounter Summary ---
Author Organization [facility] Healthcare Address [address] [place] [address] Care Team Providers Care Extension Worker Name Role Phone Roxanna Moreno MD Primary Care Provider + Encounter Details Date Type Department Care Team (Latest Contact Info) Description 01/14/2020 2:49 PM CDT - 01/14/2020 11:59 PM CDT Hospital Encounter [facility] [address] [place] [id number] Discharge Disposition: Discharge to home or self care Social History Tobacco Use Types Packs/Day Years Used Date Smoking Tobacco: Never Smokeless Tobacco: Former Quit: 05/2011 Alcohol Use Standard Drinks/Week Comments Yes 0 (1 standard drink = 0.6 oz pur e alcohol) Sex and Gender Information Value Date Recorded Sex Assigned at Not on file Legal Sex Male 1:57 AM PHARM TECH Gender Identity Male 06/20/2021 2:35 PM PHARM TECH Sexual Orientation Straight 06/20/2021 2: 35 PM PHARM TECH documented as of this encounter Medications at [...] Procedure Name Priority Date/Time Associated Diagnosis Comments NEURO CT MR OUTSIDE REFERENCE Routine 01/14/2020 2:49 PM CDT Diagnosis unknown documented in this encounter Results * Neuro CT MR Outside Reference (01/14/2020 2:49 PM CDT) Impressions [facility] - 01/14/2020 2:49 PM CDT These images are for Reference purposes only and have not been reviewed by [facility] Radiology. ??There will be no report generated by a [facility] Radiologist. Narrative [facility] - 01/14/2020 2:49 PM CDT EXAMINATION: ??Images For Reference Purposes Only Roxanna Valdez NP IMG CT PROCEDURES Final Result [facility] documented in this encounter Visit Diagnoses Not on filedocumented in this encounter Care Teams Extension Worker Relationship Specialty Start Date End Date Roxanna Moreno MD PCP - General 10/21/16 documented as of this encounter
--- OUTSIDE RECORDS SUMMARY | 2024-08-03 14:56 | XMS_ITS | Encounter Summary ---
Author Organization [facility] Healthcare Address [address] [place] [address] Care Team Providers Care Shorthand Reporter Name Role Phone Roxanna Moreno MD Primary Care Provider + Reason for Visit * Reason Comments Back Pain Encounter Details Date Type Department Care Team (Latest Contact Info) Description 02/11/2020 8:45 AM CDT - 02/11/2020 11:59 PM CDT Hospital Encounter [facility] [address] [facility] [address] [place] [phone] Dayanna Crump MD [address] [place] [address] Intercostal neuralgia (Primary Dx) Discharge Disposition: Discharge to home or self care Social History Tobacco Use Types Packs/Day Years Used Date Smoking Tobacco: Never Smokeless Tobacco: Former Quit: 05/2011 Alcohol Use Standard Drinks/Week Comments Yes 0 (1 standard drink = 0.6 oz pur e alcohol) Sex and Gender Information Value Date Recorded Sex Assigned at Not on file Legal Sex Male 1:57 AM PORTRAIT PHOTOGRAPHER Gender Identity Male 06/20/2021 2:35 PM PORTRAIT PHOTOGRAPHER Sexual Orientation Straight 06/20/2021 2: 35 PM PORTRAIT PHOTOGRAPHER documented as of this encounter Last Filed Vital Signs Vital Sign Reading Time Taken Comments Blood Pressure 136/79 02/11/2020 10:13 AM CDT Pulse 54 02/11/2020 10:13 AM CDT Temperature 35.7 ??C (96.3 ??F) 02/11/2020 9:22 AM CD T Respiratory Rate 16 02/11/2020 10:13 AM CDT Oxygen Saturation 99% 02/11/2020 10:13 AM CDT Inhaled Oxygen Concentration - - Weight - - Height - - Body Mass Index - - documented in this encounter Discharge Instructions * Patient Instructions* Almita Mitchell RN - 02/11/2020 8:45 AM CDT [facility] POST-PROCEDURE PATIENT EDUCATION Trigger points in 2-4 weeks The following procedure was performed in clinic today: Intercosatal block It may take 2-7 days experience the full benefit of your steroid injection. Although not everyone obtains pain relief from steroid injections, often the injections can provide you with improvement inpain and function that last several months or [...] managing their diabetes of any sustained increases. Increased pain, soreness, and/or aching may occur [...] weakness or prolonged numbness in the extremities documented in this encounter Medications at Time [...] MG) BY MOUTH DAILY 30 capsule 1 01/21/2020 0 gabapentin (NEURONTIN) 600 mg tablet Take 600 mg by mouth 3 (three) times a day. One and half tablets 03/03/2016 0 hydroCHLOROthiaz jamaica (HYDRODIURIL) 25 mg tabletIndication s:hypertension Take 25 mg by mouth every morning 2 01/18/2018 2 lidocaine (XYLOCAINE) 5 % ointment Apply topically 2 (two) times a day as needed for pain 08/29/2019 1 meloxicam (MOBIC) 15 mg tablet Take 15 mg by mouth daily 0 documented as of this encounter Discharge Disposition Disposition Code Departure Means Destination Discharge to home or self care documented in this encounter Progress Notes * Dayanna Crump MD - 02/11/2020 8:45 AM CDT Progress Note Patient Name: Aleksandar Olsen : 1980 Today's Date: 02/11/2020 PCP: Roxanna Moreno MD Referring: No ref. provider found Interval History: Today 02/11/2020 SUBJECTIVE Chief complaint of Chief Complaint Patient presents with ??? Back Pain Patient is here for right intercostal nerve block. He was last seen 4 months and had trigger point injections with benefit. In addition to right intercostal neuralgia, he has chronic myofascial low back pain and neck pain with right radicular pain in the C6, C7 distribution. CT of the cervical spine was normal. Of note, he cannot have an MRI cervical spine because of the spinal cord stimulator. Since his last visit, meloxicam as instructed by his PCP with benefit. Patient's Medications New Prescriptions No medications on file Previous Medications ATORVASTATIN (LIPITOR) 20 MG TABLET TK 1 T PO QD Authorizing Provider: Fernanda Pompa MD Notes: -- DULOXETINE DR (CYMBALTA) 60 MG CAPSULE TAKE 1 CAPSULE(60 MG) BY MOUTH DAILY Authorizing Provider: Madina Husain NP Notes: -- GABAPENTIN (NEURONTIN) 600 MG TABLET Take 600 mg by mouth 3 (three) times a day. One and half tablets Authorizing Provider: Fernanda Pompa MD Notes: -- HYDROCHLOROTHIAZIDE (HYDRODIURIL) 25 MG TABLET Take 25 mg by mouth daily. Authorizing Provider: Fernanda Pompa MD Notes: -- IRBESARTAN (AVAPRO) 300 MG TABLET Take 300 mg by mouth daily. Authorizing Provider: Fernanda Pompa MD Notes: -- LIDOCAINE (XYLOCAINE) 5 % OINTMENT BENNIE EXT AA 1 TO 4 TIMES QD PRN Authorizing Provider: Fernanda Pompa MD Notes: -- MELOXICAM (MOBIC) 15 MG TABLET Take 15 mg by mouth daily Authorizing Provider: Fernanda Pompa MD Notes: -- SERTRALINE (ZOLOFT) 50 MG TABLET TK 1 T PO QD Authorizing Provider: Fernanda Pompa MD Notes: -- TENS UNITS (TENS 502) DEVICE TENS unit with 2-4 electrodes Authorizing Provider: Dayanna Crump MD Notes: -- Modified Medications No medications [...] adenopathy. Psychiatric/Behavioral: Negative for hallucinations. OBJECTIVE Vitals: 24hr Min/Max: @FLOWSTAT(6,8,5,9,10:24::1)@ Most Recent : Vitals BP 145/88 Pulse 81 Temp (!) 96.3 ??F (35.7 ??C) Resp 18 SpO2 99% Physical Exam: Physical Exam Constitutional: Appearance: He is well-developed. HENT: Head: Normocephalic. Neck: Musculoskeletal: Neck supple. Pulmonary: Effort: Pulmonary effort is normal. Skin: General: Skin is dry. Neurological: Mental Status: He is alert and oriented to person, place, and time. Labs/Radiology/Diagnostic Review: No recent results to review No orders of the defined types were placed in this encounter. ASSESSMENT Mr. Aleksandar Olsen is a 39 y.o. male who presents with Problem List Items Addressed This Visit Nervous Intercostal neuralgia - Primary PLAN: 1. ??Intervention: Right T7, T8, T9 intercostal nerve block today Trigger point injections in 2-4 weeks ?? 2. ??Medications: ?a. Opioids: ??none indicated at this time. ?b. Adjuvants: No changes today:??continue meloxicam gabapentin 900 TID, lidocaine cream, duloxetine 60 mg daily. He also uses TENS unit with benefit He has discontinued Baclofen 10mg TID as he did not notice any benefit ?? - Continue Medtronic SCS use for back and right chest pain. Pt uses high frequency setting intermittently. ?? 3. ??Imaging: Previously had a CT cervical spine at [facility] and images were previously reviewed. Report scanned media at, date 08/10/2018 Will order an EMG/nerve conduction study for continued right-sided radicular pain to evaluate for peripheral neuropathy including suprascapular nerve entrapment. ?? 4. ??Referral: ??Continue PT/HEP ?? 5. ??Follow-up: TPI in 2-4 weeks 02/11/2020 9:36 AM ?? documented in this encounter Miscellaneous Notes * Op Note - Dayanna Crump MD - 02/11/2020 8:45 AM CDT Patient ID Patient Name: Aleksandar Olsen : 1980 DOS: 02/11/2020 PCP: Roxanna Moreno MD Surgeon SURGEON: Dayanna Crump MD MAINTENANCE DIRECTOR SURGEON: None Procedures NAME OF PROCEDURE: Intercostal nerve block at Right T7, T8 and T9, under Fluoroscopy. PRE-PROCEDURE DIAGNOSES: Other [...] Resident involved on case Dayanna Crump MD 02/11/2020 10:12 AM * Addendum Note - Eliz Acosta RT - 02/11/2020 8:45 AM CDTEncounter addended by: RT Jenaro on: 02/11/2020 10:55 AM Actions taken: Procedure log completed * Addendum Note - Eliz Acosta RT - 02/11/2020 8:45 AM CDTEncounter addended by: RT Jenaro on: 02/11/2020 10:58 AM Actions taken: Charge Capture section accepted [...] preservative free injection As needed, Starting on Mon02/11/20 at 1003, Intra-Op Given 02/11/2020 10:03 AM CDT 8 mL iohexoL (OMNIPAQUE) 300 mg iodine/mL injection solution As needed, Starting on Mon02/11/20 at 1007, Intra-Op Given 02/11/2020 10:07 AM CDT 1.5 mL lidocaine PF (XYLOCAINE) 10 mg/mL (1 %) preservative free injection As needed, Starting on Mon02/11/20 at 1008, Intra-Op Given 02/11/2020 10:08 AM CDT 5 mL methylPREDNISolone acetate (DEPO-medrol) injection As needed, Starting on Mon02/11/20 at 1003, Intra-Op Given 02/11/2020 10:03 AM CDT 40 mg documented in this encounter Historical Medications * This list may reflect changes made after this encounter. meloxicam (MOBIC) 15 mg tablet Take 15 mg by mouth daily 04/02/2020 added in this encounter Care Teams Shorthand Reporter Relationship Specialty Start Date End Date Roxanna Moreno MD PCP - General 10/21/16 documented as of this encounter
--- OUTSIDE RECORDS SUMMARY | 2024-08-03 14:56 | XMS_ITS | Encounter Summary ---
Author Organization [facility] Medical Group Address [address] [place] [address] Care Team Providers Care Marine Fireman Name Role Phone Roxanna Moreno MD Primary Care Provider + Encounter Details Date Type Department Care Team (Late st Contact Info) Description 04/24/2020 Orders Only [facility] Testing Site - [address] [phone] Angel Nelson MD [address] [facility] [address] [place] [address] Preop testing (Primary Dx) Social History Tobacco Use Types Packs/Day Years Used Date Smoking Tobacco: Never Smokeless Tobacco: Former Quit: 05/2011 Alcohol Use Standard Drinks/Week Comments Yes 0 (1 standard drink = 0.6 oz pur e alcohol) RARE Sex and Gender Information Value Date Recorded Sex Assigned at Not on file Legal Sex Male 1:57 AM SECURITY FLEX UTILITY OFFICER Gender Identity Male 06/20/2021 2:35 PM SECURITY FLEX UTILITY OFFICER Sexual Orientation Straight 06/20/2021 2: 35 PM SECURITY FLEX UTILITY OFFICER documented as of this encounter Progress Notes * Jose Diop - 04/24/2020 11:16 AM CDT COVID TESTING AT [facility]. Spoke to patient and provided info for him to be swabbed at [facility] for today documented in this encounter Plan of Treatment Not on file documented as of this encounter Goals Goal Patient Goal Type Associated Problems Recent Progress Patient-Stated? Author CCM Chronic Pain Care Plan Chronic Care Management No change(07/21 7:32 AM SECURITY FLEX UTILITY OFFICER) No Saran Quiñones, MABLE Note: Problem: Chronic Pain Goals: 1. Minimize further functional decline 2. Maximize quality of life 3. Control pain Strategies: - Activity/exercise program recommendation - Conservative stepwise pain medicine strategy with multi-disciplinary approach - Recommend healthy lifestyle strategies and compensatory methods as needed documented as of this encounter Results * COVID-19 Coronavirus RNA Nasopharyngeal (04/24/2020 12:45 PM CDT) COVID-19 RNA Not Detected JARRET VEGA (ARASH) Comment: Interpretive Data Testing performed at [facility]. The 2018-Novel Coronavirus Assay (COVID-19) Real Time RT-PCR assay is for in vitro diagnostic use under FDA emergency use authorization only. A negative RT-PCR result does not preclude infection with COVID-19 and should not be used as the sole basis for treatment or other patient management decisions. Additional sample types have been validated according to CLIA regulations. ?? Current Interpretive Data was last revised on 2019. Testing performed by: [facility], [address], [place]., [address] Nasopharyngeal 04/24/2020 12 :45 PM CDT 04/24/2020 6:23 PM CDT Narrative MIYA VEGA (ARASH) - 04/25/2020 6:00 AM CDT Is the patient experiencing any symptoms consistent with COVID (eg. Fever, cough, shortness of breath)?->No What is the reason for testing?->Screening prior to scheduled (>12 hr) surgery or procedure us Angel Nelson MD LAB MICROBIOLOGY - GENERAL ORDERABLES Final Result MIYA VEGA (ARASH) [address] [facility] Department [place] [address] documented in this encounter Visit Diagnoses Diagnosis Preop testing- Primary Unspecified pre-operative examination Preop testing Unspecified pre-operative examination documented in this encounter Care Teams Marine Fireman Relationship Specialty Start Date End Date Roxanna Moreno MD PCP - General 10/21/16 documented as of this encounter
--- OUTSIDE RECORDS SUMMARY | 2024-08-03 14:56 | XMS_ITS | Encounter Summary ---
Author Organization [facility] Healthcare Address [address] [place] [address] Care Team Providers Care Nut Sheller Machine Operator Name Role Phone Roxanna Moreno MD Primary Care Provider + Encounter Details Date Type Department Care Team (Latest Contact Info) Description 04/14/2020 5:34 AM CDT - 04/14/2020 8:35 AM CDT Hospital Encounter [facility] [address] [place] [id number] Angel Nelson MD [address] [facility] [address] [place] [address] Discharge Disposition: Discharge to home or self care Social History Tobacco Use Types Packs/Day Years Used Date Smoking Tobacco: Never Smokeless Tobacco: Former Quit: 05/2011 Alcohol Use Standard Drinks/Week Comments Yes 0 (1 standard drink = 0.6 oz pur e alcohol) RARE Sex and Gender Information Value Date Recorded Sex Assigned at Not on file Legal Sex Male 1:57 AM PUBLIC WELFARE DIRECTOR Gender Identity Male 06/20/2021 2:35 PM PUBLIC WELFARE DIRECTOR Sexual Orientation Straight 06/20/2021 2: 35 PM PUBLIC WELFARE DIRECTOR documented as of this encounter Last Filed Vital Signs Vital Sign Reading Time Taken Comments Blood Pressure 127/90 04/14/2020 8:30 AM CDT Pulse 51 04/14/2020 8:35 AM CDT Temperature 36.3 ??C (97.3 ??F) 04/14/2020 8:35 AM CD T Respiratory Rate 17 04/14/2020 8:35 AM CDT Oxygen Saturation 96% 04/14/2020 8:35 AM CDT Inhaled Oxygen Concentration - - Weight 112.9 kg (249 lb) 04/14/2020 5:40 AM CDT Height 180.3 cm (5' 11 ) 04/14/2020 5:40 AM CDT Body Mass Index 34.73 04/14/2020 5:40 AM CDT documented in this encounter Discharge Diagnoses Diagnosis Carpal tunnel syndrome, right upper limb - CARPAL TUNNEL SYNDROME, RIGHT UPPER LIMB Hyperlipidemia, unspecified - HYPERLIPIDEMIA, UNSPECIFIED Anxiety disorder, unspecified - ANXIETY DISORDER, UNSPECIFIED Essential (primary) hypertension - ESSENTIAL (PRIMARY) HYPERTENSION Unspecified essential hypertension Obesity, unspecified - OBESITY, UNSPECIFIED Body mass index (bmi) 34.0-34.9, adult - BODY MASS INDEX (BMI) 34.0-34.9, ADULT Other penitentiary (current) drug therapy - OTHER ALF (CURRENT) DRUG THERAPY Personal history of nicotine dependence - PERSONAL HISTORY OF NICOTINE DEPENDENCE documented in this encounter Discharge Instructions * Discharge Instructions* Allan Ty MD - 04/13/2020 9:55 AM CDT POSTOPERATIVE HAND SURGERY PATIENT INSTRUCTIONS Attending Surgeon: Angel Nelson M.D. Surgery Date: 04/14/2020 MEDICATIONS: 1. Resume all previous home medications [...] the prescribed pain medication, you may take cynq-ovf-gkhkhyw pain relievers such as ibuprofen if adequate [...] phone number for Dr. Nelson???s office is [phone]. 2. The general scheduling number is [phone]. 3. Contact your physician's office during office hours or the [facility] at . The orthopedic resident on-call can [...] unit with 2-4 electrodes 1 Device 12/13/2018 scopolamine 1 mg over 3 days patch 3 dayIndications:P revention of Post-Operative Nausea and Vomiting Place 1 patch on the skin once for 1 dose 1 patch 04/21/2020 0 atorvastatin (LIPITOR) 20 mg tabletIndication s:hyperlipidemia Take [...] for up to 10 doses 10 tablet 04/14/2020 0 HYDROcodone-acet aminophen (NORCO) 5-325 mg per tabletIndication [...] for up to 10 doses 10 tablet 04/14/2020 04/17/2020 documented in this encounter Discharge Disposition Disposition Code Departure Means Destination Discharge to home or self care documented in this encounter H&P Notes * Shirin Bales, ABATEMENT WORKER - 04/14/2020 6:04 AM CDT Outpatient Pre-Procedure History and Physical Subjective Patient is a 39 y.o. male with chief complaint of right hand pain. Indication For Procedure: Pre-op Diagnosis * Carpal tunnel syndrome of right wrist [G56.01] Planned Procedure right CARPAL TUNNEL RELEASE (R) HPI: Past Medical History: Diagnosis Date ??? [...] NERVE BLOCK Nerve Block - (Added by ERICA Conv), spine multi ??? SHOULDER SURGERY Rt [...] Take 20 mg by mouth every morning 04/14/2020 at 0400 ??? DULoxetine DR (CYMBALTA) 60 mg capsule TAKE 1 CAPSULE(60 MG) BY MOUTH DAILY (Patient taking differently: Take 60 mg by mouth every morning ) 30 capsule 1 04/14/2020 at 0400 ??? hydroCHLOROthiazide (HYDRODIURIL) 25 mg tablet Take 25 mg by mouth every morning 2 Past Week atUnknown time ??? irbesartan (AVAPRO) 300 mg tablet Take 300 mg by mouth every morning 3 Past Week at Unknown time ??? lidocaine (XYLOCAINE) 5 % ointment Apply topically 2 (two) times a day as needed for pain Past Week at Unknown time ??? sertraline (ZOLOFT) 50 mg tablet Take 50 mg by mouth every morning 04/14/2020 at 0400 ??? UNABLE TO FIND Med Name: medical marijuana 04/13/2020 at Unknown time ??? TENS units (TENS 502) device TENS unit with 2-4 electrodes 1 Device 0 No Known Allergies Social History Tobacco Use ??? Smoking status: Never Smoker ??? Smokeless tobacco: Former User Substance Use Topics ??? Alcohol use: Yes Comment: RARE Social History Substance and Sexual Activity Drug Use Yes ??? Frequency: 5.0 times per week ??? Types: Medical marijuana Comment: last 04/13/20 Vitals: 04/02/20 1345 04/14/20 0540 04/14/20 0553 BP: 114/70 Pulse: 56 Resp: 16 Temp: 36.3 ??C (97.3 ??F) SpO2: 96% Weight: 108.9 kg (240 lb) 112.9 kg (249 lb) Height: 180.3 cm (5' 11 ) 180.3 cm (5' 11 ) Review of Systems: Review of systems per HPI and otherwise all other systems are negative Physical exam: Lungs: clear to auscultation bilaterally Heart: regular rate and rhythm, S1, S2 normal, no murmur, click, rub or gallop Neurologic: Alert and oriented x4, grossly intact Shirin Bales NP Cosigned by Angel Nelson MD at 04/14/2020 7:21 AM CDT documented in this encounter Miscellaneous Notes * Perioperative Nursing Note - Carmenza Christie RN - 04/14/2020 8:10 AM CDT 0811: Pt in bed in lowest position locked with both side rails up, nonslip socks applied, curtain open and patient near nurses station. Pt will not be left behind curtain alone. Pt assisted in all cares in recovery. Alejandro score based on pre-op condition. 0830: Spoke with pt's via telephone and went over d/c instructions.Verbalized understanding and all questions answered via phone. Pt stated pain and nausea tolerable for D/C and instructions understood, all questions answered. No changes since previous assessment. To prepare for D/C. * Op Note - Angel Nelson MD - 04/14/2020 7:28 AM CDT Date of Surgery: .04/14/20 Pre-operative Diagnosis: 1. Right carpal tunnel syndrome Post-operative diagnosis: 1. Same as above Operative Procedure: 1. Open right carpal tunnel release Attending Surgeon: Angel Nelson MD, M.Sc. Assistant Professor Of Drama: 1. Carlos Ty MD 2. Roddy Hart MS 4 Anesthesia: Choice Blood loss: No blood loss documented. Tourniquet Time: Total Tourniquet Time Documented: Arm - Lower (Right) - 14 minutes Total: Arm - Lower (Right) - 14 minutes Findings: Compression median nerve at right carpal tunnel Specimen: No specimens collected during this procedure. Complications: None Condition: The patient was transferred to the PACU in good condition. Indications: This is a 39-year-old male with a history of bilateral hand numbness tingling. He was seen evaluated, nerve conduction studies were consistent with bilateral carpal tunnel syndrome. He failed a trial of non operative night splints, and therefore elected to proceed with staged bilateral open carpal tunnel release. Risks, benefits alternatives were discussed in detail, the patient elected to proceed with the above informed consent was obtained The risks discussed included bleeding, infection, damage [...] and draped in the usual sterile fashion. 2 g Ancef was given by our anesthesia colleagues preoperatively. A 3-4 cm incision was made overlying the transverse carpal ligament in line with the radial border of the right ring finger. Dissection was made through skin and subcutaneous tissue. The palmar fascia was sharply divided, and a self retaining retractor was introduced into the wound. The distal edgeof the transverse carpal ligament was visualized, as was the superficial palmar arch. Hand held retractors were introduced into the wound and the transverse carpal ligament was divided sharply from distal to proximal under direct visualization, using a combination of a scalpel blade and scissors and leaving the most distal aspect of the ligament intact. Once the ligament was divided, the distal po rtion of antebrachial fascia was incised under direct [...] was inspected and noted to be intact. 10 cc of 0.5% bupivacaine was injected into the area around the wound. The tourniquet was deflated and meticulous hemostasis was obtained with bipolar electrocautery. The wound was copiously irrigated. Incision was closed with interrupted 4-0 Monocryl sutures. A sterile soft dressing was then [...] chemical DVT prophylaxis is not indicated. * Perioperative Nursing Note - Francisca Salinas RN - 04/14/2020 6:24 AM CDT 0624 Pt's escort, Jacquelyn, left but will be driving pt home agrees to stay with pt for 24 hours postop. * Pre-Procedure Instructions - Naila Griffin RN - 04/13/2020 10:57 AM CDT We are pleased that you and your doctor have chosen [facility] for your surgery. We hope the following information will help make your visit a pleasant one. The name of the building is [facility] in [place]. Directions to facility ([place] [address] [address] [facility] [place]. [place] [address] When you enter the building, look directly to your left, you will see 2 glass double doors. These double doors say [address]. Go through those double doors and check in with the administrative assistant receptionist. Bring glass/contact case Bring pillows, leave in car. Patient has ice for home. Pt. Has Gel packs Pt. To be NPO after Midnight, unless instructed to take medication by ABATEMENT WORKER at CPAP. Pt's. Nathen Valladares [phone] will be with patient and care for [...] Explained to patient that the cafe is closed. Explained to patient if their caregiver would like anything to eat or drink they may bring their own. * Pre-Procedure Instructions - Vanda Mccarty NP - 04/03/2020 8:39 AM CDT [facility] for Preoperative Assessment and Planning CPAP Clinic Location: [facility] The night before your surgery: [...] rinse your mouth out. * Do not glue your dentures. * Do not wear jewelry, body piercings, [...] mg tablet Take morning of surgery ??? cephalexin (KEFLEX) 500 mg capsule Take on day of surgery if needed ??? DULoxetine DR (CYMBALTA) 60 mg capsule Take morning of surgery ??? hydroCHLOROthiazide (HYDRODIURIL) 25 mg tablet Don't take on day of surgery ??? irbesartan (AVAPRO) 300 mg tablet Don't take on day of surgery ??? lidocaine (XYLOCAINE) 5 % ointment Don't take on day of surgery ??? sertraline (ZOLOFT) 50 mg tablet Take morning of surgery ??? Medical Marijuana Don't take on day of surgery ??? Neurostimulator Bring remote General Instructions For Medications: ?? Stop all of these medications 7-14 days prior to your surgery: Vitamin E, Herbal medicines, DietPills ?? If you have pain, you may take tylenol (acetaminophen). Do not take more than 6 tablets or 3000 mg (3 g) within a 24 period. ?? If your procedure is scheduled at the Orthopedic Center, a scopolamine patch will be sent to your pharmacy to help prevent nausea after surgery. After your shower the night prior to surgery, placethe patch behind your ear on the opposite side of your planned operation. Wash your hands after placing the patch. If you touch your eyes after you place the patch it may cause your pupils to dilate.You may leave the patch on for up to 3 days. If you have difficulty emptying your bladder while thepatch is in place, remove the patch, throw it away, and your symptoms should resolve. Call your surgeon and the CPAP clinic [...] surgery * Perioperative Nursing Note - Donald Terrell RN - 04/02/2020 1:54 PM CDT Center for Preoperative Assessment and Planning Perioperative Nursing Note Telephone Preoperative Evaluation ([facility]) - TELEPHONE ONLY, NO PHYSICAL EXAM Date: 04/02/20 Vitals: 04/02/20 1345 Weight: 108.9 kg (240 lb) Height: 180.3 cm (5' 11 ) CHEST CIRCUMFERENCE: Social History Tobacco Use Smoking Status Never Smoker Smokeless Tobacco Former User Substance and Sexual Activity Alcohol Use Yes Comment: RARE Substance and Sexual Activity Drug Use Yes ??? Frequency: 5.0 times per week ??? Types: Medical marijuana Current Facility-Administered Medications for the 04/14/20 encounter (Hospital Encounter) with Angel Nelson MD Medication Dose Route Frequency Provider Last Rate Last Dose ??? perflutren lipid (DEFINITY) 1.5 mL in sodium chloride 0.9% 10 mL syringe 1- 10 mL intravenous Once in imaging Provider Scanning Outpatient Medications Marked as Taking for the 04/14/20 encounter (Hospital Encounter) with Angel Hastings MD Medication Sig Dispense Refill ??? atorvastatin (LIPITOR) 20 mg tablet Take 20 mg by mouth every morning ??? cephalexin (KEFLEX) 500 mg capsule Take 500 mg by mouth 2 (two) times a day ??? DULoxetine DR (CYMBALTA) 60 mg capsule [...] 50 mg by mouth every morning ??? [DISCONTINUED] gabapentin (NEURONTIN) 600 mg tablet Take 600 mg by mouth 3 (three) times a day.One and half tablets Implants Spinal Cord Stimulator Spinal Cord Stimulator-05/17/2011 - Implanted Back Freelance Interpreter/Translator: [employer] As of 05/17/2018 Status: Implanted SKIN Piercings Remaining: No Wound (LDAs) Type of Wound (LDA): (NONE) SCREENINGS STOP-Bang Total Score: 3 Greene Fall Risk Score (Retired): 15 Venkat index score: 100 Is someone currently physically or emotionally hurting you or your family?: Denies NUTRITION PATIENT CARE PLANNING Advance Directives (For Healthcare) Advance Directive: Patient does not have advance directive Communication/Rag Baler Needs Communication Needs: None Patient's Preferred Language: Latvian Is an central station operator needed? : No Assistive Devices/DME: None Discharge [...] in a congregate living facility (ex. assisted living/fci facility, detention, half-way)?: No Have you previously tested positive for [...] 20 seconds. Use an alcohol- based hand senior python developer that contains at least 60% alcohol if soap and water are not available. ADDITIONAL COMMENTS/ FOLLOW UP * Pre-Procedure Instructions - Donald Terrell RN - 04/02/2020 1:53 PM CDT PRE-SURGICAL INSTRUCTIONS ??? General Information [...] insurance card, a photo ID (like a Refinery Operator Helper's license) and a method of payment for [...] or department store or come by our [facility] clinic and we will give it to [...] hair products the morning of the surgery. . COVID TESTING PLAN COVID Test set up [facility] on 04/11. In-basket message sent to [facility]. Patient aware of plan. If you need to reschedule your COVID test to a different location or if your surgery gets rescheduled, you MUST call [phone] Monday-Monday 8am-4:30pm to get your COVID testing rescheduled or your lab order will not be available at Testing Sites. COVID Testing is only valid for up to 96 hours prior to surgery date, unless otherwise specified. We recommend you Self-Isolate after COVID Testing: Stay at home, if possible until your surgery date. Maintain a 6 foot distance from other people (social distancing). Avoid touching your eyes, nose and mouth with unwashed hands. Wash your hands often with soap and water for at least 20 seconds. Use an alcohol- based hand senior python developer that contains at least 60% alcohol if [...] surgery, please call the surgery center at [phone]. documented in this encounter Plan of Treatment Not on file documented as of this encounter Goals Goal Patient Goal Type Associated Problems Recent Progress Patient-Stated? Author CCM Chronic Pain Care Plan Chronic Care Management No change(07/21 7:32 AM PUBLIC WELFARE DIRECTOR) No Saran Quiñones, MABLE Note: Problem: Chronic Pain Goals: 1. Minimize further functional decline 2. Maximize quality of life 3. Control pain Strategies: - Activity/exercise program recommendation - Conservative stepwise pain medicine strategy with multi-disciplinary approach - Recommend healthy lifestyle strategies and compensatory methods as needed documented as of this encounter Procedures Procedure Name Priority Date/Time Associated Diagnosis Comments RELEASE CARPAL TUNNEL 04/14/2020 7:20 AM CDT Carpal tunnel syndrome of right wrist Special Needs pt. has neurostim. For pain mgmt(30 mins) POCT PREOP SCREEN ([id number]) Routine 04/14/2020 6:12 AM CDT documented in this encounter Results * POCT Preop screen ([id number]-[id number]-Hct) (04/14/2020 6:12 AM CDT) K POC 4.2 3.3 - 4.9 mmol/L MIYA BENITEZ Comment: Interpretive Data Unable to assess hemolysis. ??Invitro hemolysis causes falsely elevated potassium. Current Interpretive Data was last revised on 2020. Blood specimen (specimen) 04/14/2020 6:12 AM CDT 04/14/2020 6:12 AM CDT Angel Nelson MD LAB POCT ORDERABLES - SELENE CE Final Result MIYA [facility] [address] [facility] [place] [address] documented in this encounter Visit Diagnoses Diagnosis Carpal tunnel syndrome of right wrist- Primary documented in this encounter Admitting Diagnoses Diagnosis Carpal tunnel syndrome of right wrist documented in this encounter Administered Medications Inactive Administered Medications - up to 3 most recent administrations Medication Order MAR Action Action Date Dose Rate Site Lactated Ringer's (LR) infusion 30 mL/hr, intravenous, Continuous, Starting on Mon04/14/20 at 0630, Pre-Op, Use a 500 ml bag for End Stage Renal Disease Patients New Bag 04/14/2020 6:26 AM CDT 30 mL/hr 30 mL/hr lidocaine (XYLOCAINE) 10 mg/mL (1 %) injection 2-10 mg 2-10 mg (0.2-1 mL), other, Once as needed, pain with IV placement, Starting on Mon04/14/20 at 0547, For 1 dose, Pre-Op, Administer volume needed to infiltrate IV site. Given 04/14/2020 6:26 AM CDT 2 mg scopolamine patch 72 hour 1 patch 1 patch, transdermal, Administer over 72 Hours, Once, On Mon04/14/20 at 0630, For 1 dose, Pre-Op, Apply [...] Motion Sickness, Prevention of Post-Operative Nausea and VomitingIndications:Bahman on Sickness,Prevention of Motion Sickness,Prevention of Post-Operative Nausea and Vomiting Medication Applied 04/14/2020 6:21 AM CDT 1 patch Behind Left Ear documented in this encounter Discontinued Medications Medication Sig Discontinue Reason Start Date End Da te gabapentin (NEURONTIN) 600 mg tablet Take 600 mg by mouth 3 (three) times a day. One and half tablets 03/03/2016 04/02/2020 meloxicam (MOBIC) 15 mg tablet Take 15 mg by mouth daily 04/02/2020 documented as of this encounter Historical Medications * This list may reflect changes made after this encounter. UNABLE TO FIND Med Name: medical marijuana 1 added in this encounter Active and Recently Administered Medications Times are shown in CDT. Scheduled Medication Order 04/12/2020 04/13/2020 04/14/2020 ceFAZolin (ANCEF) 100 mg/mL sterile water 2,000 mg (COMPLETED) 2,000 mg, intravenous, at 400 mL/hr, Administer over 3 Minutes, Once, On Mon04/14/20 at 0615, For 1 dose, Indications: Prophylaxis, Surgical 0723 (Given - Provid er: Sondra Villalpando CRNA) scopolamine patch 72 hour 1 patch 1 patch, transdermal, Administer over 72 Hours, Once, On Mon04/14/20 at 0630, For 1 dose, Pre-Op, Apply [...] Sickness, Prevention of Post-Operative Nausea and Vomiting 0621 (Medication Demarco lied - Provider: Francisca Salinas RN)0835 (Due: Medication Removed - Provider: Automatic Discharge Provider - Comment: Time automatically adjusted from order being discontinued) Continuous Medication Order 04/12/2020 04/13/2020 04/14/2020 Lactated Ringer's (LR) infusion (CANCELED) 30 mL/hr, intravenous, Continuous, Starting on Mon04/14/20 at 0630, Pre-Op, Use a 500 ml bag for End Stage Renal Disease Patients 0626 (New Bag - Prov ider: Francisca Salinas RN)0747 (Anesthesia Volume Adjustment - Provider: Sondra Villalpando CRNA)0800 (Stopped - Provider: Carmenza Christie RN) Lactated Ringer's (LR) infusion 125 mL/hr, intravenous, Continuous, Starting on Mon04/14/20 at 0845, Phase I 0800 (Continued from OR - Provider: Carmenza Christie RN)0835 (Stopped - Provider: Carmenza Christie RN) PRN Medication Order 04/12/2020 04/13/2020 04/14/2020 acetaminophen (TYLENOL) tablet 500 mg 500 mg, oral, As needed, headaches, other, Breakthrough Pain and Supplement to other pain meds, Starting on Mon04/14/20 at 0805, For 2 doses, Phase I, When able to tolerate PO after consulting with Anesthesiologist., Indications: Pain bupivacaine (MARCAINE) 0.5 % (5 mg/mL) preservative free injection (CANCELED) As needed, Starting on Mon04/14/20 at 0737, Intra-Op 0737 (Given - Provid er: Angel Nelson MD) diphenhydrAMINE (BENADRYL) injection 12.5 mg 12.5 mg, intravenous, Administer over 1 Minutes, Every 5 min PRN, itching, other, For Nausea, administer 25 mg IV., Starting on Mon04/14/20 at 0805, For 4 doses, Phase I, Max cumulative dose 50 mg., Indications: Itching fentaNYL (SUBLIMAZE) preservative free syringe 25 mcg 25 mcg, intravenous, Every 5 min PRN, 1st line for pain, uncontrolled pain on PACU admission for outpatients, Starting on Mon04/14/20 at 0805, For 4 doses, Phase I, Use as [...] pain after consulting with Anesthesiologist, Starting on Mon04/14/20 at 0805, For 2 doses, Phase I, When able to tolerate PO., Indications: Pain HYDROmorphone (DILAUDID) injection 0.2 mg 0.2 mg, intravenous, Administer over 2 Minutes, Every 5 min PRN, 2nd line for pain, Use as 1st line pain med for patients at [facility]. Use as 2nd line at after consulting with anesthesiologist., Starting on Mon04/14/20 at 0805, Phase I, Notify Anesthesiologist if total PACU dose reaches 2 mg for inpatients and 1 mg total for outpatients, and pain score 5/10 or more., Indications: Pain labetaloL (NORMODYNE,TRANDATE) injection 5 mg 5 mg, intravenous, Every 5 min PRN, high blood pressure, Starting on Mon04/14/20 at 0805, For 4 doses, Phase I, Max cumulative dose 20 mg. Dose if systolic blood pressure greater than 180 AND HR greater than 70. lidocaine (XYLOCAINE) 10 mg/mL (1 %) injection 2-10 mg (COMPLETED) 2-10 mg (0.2-1 mL), other, Once as needed, pain with IV placement, Starting on Mon04/14/20 at 0547, For 1 dose, Pre-Op, Administer volume needed to infiltrate IV site. 0626 (Given - Provid er: Francisca Salinas RN - Comment: injectd for iv start.) meperidine (DEMEROL) preservative free injection 12.5 mg 12.5 mg, intravenous, Every 10 min PRN, shivering, Starting on Mon04/14/20 at 0805, For 2 doses, Phase I, Max cumulative dose 25 mg., Indications: Shivering ondansetron (ZOFRAN) injection 4 mg 4 mg, intravenous, Administer over 2 Minutes, Once as needed, nausea, vomiting, Starting on Mon04/14/20 at 0805, For 1 dose, Phase I, Proceed to prochlorperazine if ondansetron has been given within the last 6 hours. prochlorperazine (COMPAZINE) injection 5 mg 5 mg, intravenous, Every 10 min PRN, nausea, vomiting, Check with Anesthesiologist before administring, and ask about IV versus IM., Starting on Mon04/14/20 at 0805, For 2 doses, Phase I, If nausea/vomiting not relieved by ondansetron within 30 minutes or if ondansetron has been given within the last 6 hours. sodium chloride 0.9 % irrigation (CANCELED) As needed, Starting on Mon04/14/20 at 0738, Intra-Op 0738 (Given - Provid er: Angel Nelson MD) sodium chloride 0.9% flush 0.5-20 mL 0.5-20 mL, intra-catheter, As needed, line care, Flush Sander Block Hep Locks to keep vein open., Starting on Mon04/14/20 at 0547, Pre-Op, Flush volume based on line type and size. Flush before and after each use. , Indications: Flushing documented in this encounter Orders Medications Ordered That Eyad ht Not Have Been Administered Count Last Ordered Date First Ordered Date acetaminophen (TYLENOL) tablet 500 mg 1 08/2019 bupivacaine (MARCAINE) 0.5 % (5 mg/mL) preservative free injection 04/14/2020 ceFAZolin (ANCEF) 100 mg/mL sterile water 2,000 mg 04/14/2020 diphenhydrAMINE (BENADRYL) i njection 12.5 mg 04/14/2020 fentaNYL (SUBLIMAZE) preserv ative free syringe 25 mcg 04/14/2020 HYDROcodone-acetaminophen (N ORCO) 5-325 mg per tablet 1 tablet 04/14/2020 HYDROmorphone (DILAUDID) injection 0.2 mg 1 04/14/2020 labetaloL (NORMODYNE,TRANDAT E) injection 5 mg 04/14/2020 Lactated Ringer's (LR) infusion 0 meperidine (DEMEROL) preserv ative free injection 12.5 mg 04/14/2020 ondansetron (ZOFRAN) injection 4 mg 04/14 prochlorperazine (COMPAZINE) injection 5 mg 04/14/2020 sodium chloride 0.9 % irrigation 04/14/20 sodium chloride 0.9% flush 0.5-20 mL 1 08/2019 documented in this encounter Care Teams Nut Sheller Machine Operator Relationship Specialty Start Date End Date Roxanna Moreno MD PCP - General 10/21/16 documented as of this encounter
--- OUTSIDE RECORDS SUMMARY | 2024-08-03 14:56 | XMS_ITS | Encounter Summary ---
Author Organization [facility] Healthcare Address [address] [place] [address] Care Team Providers Care Electrician Assistant Name Role Phone Roxanna Moreno MD Primary Care Provider + Reason for Visit * Reason Comments Back Pain Neck Pain Injections Encounter Details Date Type Department Care Team (Latest Contact Info) Description 03/25/2020 8:33 AM CDT - 03/25/2020 11:59 PM CDT Hospital Encounter [facility] at [facility] [address] 1st [place] [id number] Dayanna Crump MD [address] [facility] [address] [place] [address] Myofascial pain (Primary Dx) Discharge Disposition: Discharge to home or self care Social History Tobacco Use Types Packs/Day Years Used Date Smoking Tobacco: Never Smokeless Tobacco: Former Quit: 05/2011 Alcohol Use Standard Drinks/Week Comments Yes 0 (1 standard drink = 0.6 oz pur e alcohol) Sex and Gender Information Value Date Recorded Sex Assigned at Not on file Legal Sex Male 1:57 AM LATEX THREAD MACHINE OPERATOR Gender Identity Male 06/20/2021 2:35 PM LATEX THREAD MACHINE OPERATOR Sexual Orientation Straight 06/20/2021 2: 35 PM LATEX THREAD MACHINE OPERATOR documented as of this encounter Last Filed Vital Signs Vital Sign Reading Time Taken Comments Blood Pressure 151/89 03/25/2020 8:38 AM CDT Pulse 63 03/25/2020 8:38 AM CDT Temperature 36.4 ??C (97.6 ??F) 03/25/2020 8:38 AM CD T Respiratory Rate 18 03/25/2020 8:38 AM CDT Oxygen Saturation 100% 03/25/2020 8:38 AM CDT Inhaled Oxygen Concentration - - Weight - - Height - - Body Mass Index - - documented in this encounter Discharge Instructions * Discharge Instructions* Saran Quiñones RN - 03/25/2020 9:00 AM CDT [facility] POST-PROCEDURE PATIENT EDUCATION The following procedure was performed in clinic today: Trigger Point Injections This procedure is generally well tolerated; however, some patients may experience side effects. Most resolve within an hour of the procedure but may re-occur within 24-48 hours. These side effects include: ??? Dizziness or light headedness upon standing; change positions slowly ??? Numbness or weakness in the extremities ??? Mild bruising, bleeding, or swelling at [...] Pain Management Center. ??? Allergic Reaction ??? Difficulty breathing ??? Extensive bleeding ??? Infection (may be indicated by a fever of 101o or greater, heat, redness, or drainage at the injection site) ??? New loss of balance/difficulty walking ??? New loss of bowel or bladder control ??? Increasing muscle weakness or prolonged numbness in the extremities PA[facility]EMENT C[facility] DISCHARGE INFORMATION PLAN: ??? Intercosal Nerve Block as scheduled NEW ORDERS: ??? If you have any questions or concerns, please contact the Pain Management Center at [phone]. Calls are accepted Monday-Monday, 7:30am-4pm, excluding observed [...] to the date of need. o Call [phone] and leave a message on the RN [...] unit with 2-4 electrodes 1 Device 12/13/2018 cephalexin (KEFLEX) 500 mg capsuleIndicatio ns:Upper Respiratory/HEEN T Infection Take 500 mg by mouth 2 (two) times a day 03/20/2020 0 atorvastatin (LIPITOR) 20 mg tabletIndication s:hyperlipidemia Take 20 mg by mouth every morning 09/04/[address] (CYMBALTA) 60 mg capsule TAKE 1 CAPSULE(60 MG) BY MOUTH DAILY 30 capsule 1 03/20/2020 0 gabapentin (NEURONTIN) 600 mg tablet Take [...] Progress Notes * Dayanna Crump MD - 03/25/2020 8:45 AM CDT Progress Note Patient Name: Aleksandar Olsen : 1980 Today's Date: 03/25/2020 PCP: Roxanna Moreno MD Referring: No ref. provider found Interval History: Today 03/25/2020 SUBJECTIVE Chief complaint of Chief Complaint Patient presents with ??? Back Pain ??? Neck Pain ??? Injections Patient is here for right intercostal nerve [...] Min/Max: @FLOWSTAT(6,8,5,9,10:24::1)@ Most Recent : Vitals BP 151/89 Pulse 63 Temp 97.6 ??F (36.4 ??C) Resp 18 SpO2 100% Physical Exam: Physical Exam Constitutional: Appearance: He [...] Problem List Items Addressed This Visit Nervous Myofascial pain - Primary PLAN: 1. ??Intervention: TPI today Right T7, T8, T9 intercostal nerve block in 6-10 weeks 2. ??Medications: ?a. Opioids: ??none indicated at this time. ?b. Adjuvants: No changes today:??continue meloxicam gabapentin 900 TID, lidocaine cream, duloxetine 60 mg daily. He also uses TENS unit with benefit He has discontinued Baclofen 10mg TID as he did not notice any benefit ?? Continue Medtronic SCS use for back and right chest pain. Pt uses high frequency setting intermittently. ?? 3. ??Imaging: Previously had a CT cervical spine at [place] and images were previously reviewed. Report scanned media at, date 08/10/2018 Will order an EMG/nerve conduction study for continued right-sided radicular pain to evaluate for peripheral neuropathy including suprascapular nerve entrapment. ?? 4. ??Referral: ??Continue PT/HEP ?? 5. ??Follow-up: 6-10 weeks for intercostal nerve block 03/25/2020 8:39 AM ?? documented in this encounter Miscellaneous Notes * Op Note - Dayanna Crump MD - 03/25/2020 8:45 AM CDT Patient ID Patient Name: Aleksandar Olsen : 1980 DOS: 03/25/2020 PCP: Roxanna Moreno MD Surgeon SURGEON: Dayanna Crump MD SOD FARMER SURGEON: None Diagnosis: Myofascial Pain NAME OF PROCEDURE: Trigger Point Injections [...] Upper: [] Right [] Left Trapezius, Mid: [x] Right [] Left Trapezius, Lower: [] Right [...] Resident involved on case Dayanna Crump MD 03/25/2020 8:57 AM * Addendum Note - Charbel Brandt RT - 03/25/2020 8:45 AM CDTEncounter addended by: RT Estee on: 03/25/2020 10:32 AM Actions taken: Charge Capture section accepted documented in this encounter Plan of Treatment Not on file documented as of this encounter Goals Goal Patient Goal Type Associated Problems Recent Progress Patient-Stated? Author CCM Chronic Pain Care Plan Chronic Care Management No change(07/21 7:32 AM LATEX THREAD MACHINE OPERATOR) No Saran Quiñones, MABLE Note: Problem: Chronic Pain Goals: 1. Minimize further functional decline 2. Maximize quality of life 3. Control pain Strategies: - Activity/exercise program recommendation - Conservative stepwise pain medicine strategy with multi-disciplinary approach - Recommend healthy lifestyle strategies and compensatory methods as needed documented as of this encounter Visit Diagnoses Diagnosis Myofascial pain- Primary Unspecified myalgia and myositis documented in this encounter Administered Medications Inactive Administered Medications - up to 3 most recent administrations Medication Order MAR Action Action Date Dose Rate Site bupivacaine (MARCAINE) 0.25 % (2.5 mg/mL) preservative free injection As needed, Starting on Mon03/25/20 at 0852, Intra-Op Given 03/25/2020 8:52 AM CDT 7 mL documented in this encounter Historical Medications * This list may reflect changes made after this encounter. cephalexin (KEFLEX) 500 mg capsuleIndication s:Upper Respiratory/HEENT Infection Take 500 mg by mouth 2 (two) times a day 03/20/2020 04/03/2020 added in this encounter Care Teams Electrician Assistant Relationship Specialty Start Date End Date Roxanna Moreno MD PCP - General 10/21/16 documented as of this encounter
--- OUTSIDE RECORDS SUMMARY | 2024-08-03 14:56 | XMS_ITS | Encounter Summary ---
Author Organization [facility] Healthcare Address [address] [place] [address] Care Team Providers Care Account Auditor Name Role Phone Roxanna Moreno MD Primary Care Provider + Encounter Details Date Type Department Care Team (Late st Contact Info) Description 04/14/2020 7:30 AM CDT - 04/14/2020 8:00 AM T Surgery [facility] [address] [place] [address] Angel Nelson MD [address] [facility] [address] [place] [address] right CARPAL TUNNEL RELEASE Surgery Details Date/Time Status Location OR Service Patient Class Case Class Case Type Trauma Case? 04/14/2020 7:30 AM Posted [facility] OPERATING ROOM OR 4 Orthopaedics Outpatient Elective Panel 1 Procedure LRB Anes Op Region Wound Class Comments right CARPAL TUNNEL RELEASE Right Choice Wrist Cl ass I - Clean Surgeon Surgeon Role Service Panel Angel Nelson MD Primary Orthopaedics 1 Allan Ty MD Resident - Assisting Orthopae dics 1 Special Needs pt. has neurostim. For pain mgmt(30 mins) documented in this encounter Social History Tobacco Use Types Packs/Day Years Used Date Smoking Tobacco: Never Smokeless Tobacco: Former Quit: 05/2011 Alcohol Use Standard Drinks/Week Comments Yes 0 (1 standard drink = 0.6 oz pur e alcohol) RARE Sex and Gender Information Value Date Recorded Sex Assigned at Not on file Legal Sex Male 1:57 AM AUTO SERVICE WRITER Gender Identity Male 06/20/2021 2:35 PM AUTO SERVICE WRITER Sexual Orientation Straight 06/20/2021 2: 35 PM AUTO SERVICE WRITER documented as of this encounter Last Filed Vital Signs Vital Sign Reading Time Taken Comments Blood Pressure 128/85 04/14/2020 8:00 AM CDT Pulse 58 04/14/2020 8:00 AM CDT Temperature 36.3 ??C (97.3 ??F) 04/14/2020 8:00 AM CD T Respiratory Rate 14 04/14/2020 8:00 AM CDT Oxygen Saturation 96% 04/14/2020 8:00 AM CDT Inhaled Oxygen Concentration - [...] the prescribed pain medication, you may take [id number] pain relievers such as ibuprofen if adequate [...] phone number for Dr. Nelson???s office is [phone]. 2. The general scheduling number is [phone]. 3. Contact your physician's office during office hours or the [facility] at . The orthopedic resident on-call [...] this encounter H&P Notes * Shirin Bales, SAFETY ADVISOR - 04/14/2020 6:04 AM CDT Outpatient Pre-Procedure [...] - T9 Tumor excision. 2006. (Added by ERICA Conv) ??? KNEE ARTHROSCOPY W/ LATERAL RELEASE [...] 180.3 cm (5' 11 ) 180.3 cm (5 ) Review of Systems: Review of systems [...] release Attending Surgeon: Angel Nelson MD, M.Sc. Payroll Human Resources Assistant: 1. Carlos Ty MD 2. Roddy Hart [...] 04/14/2020 6:24 AM CDT 0624 Pt's escort, florentino Valladares but will be driving pt home agrees to stay with pt for 24 hours postop. * Pre-Procedure Instructions - Naila Griffin RN - 04/13/2020 10:57 AM CDT We are pleased that you and your doctor have chosen [facility] for your surgery. We hope the following information will help make your visit a pleasant one. The name of the building is [facility] in [place]. Directions to facility (address [place] [id number] [place] [address] [address] [place]. Zip [address] [address] you enter the building, look directly to your left, you will see 2 glass double doors. These double doors say [address]. Go through those double doors and check in with the distributor operator. Bring glass/contact case Bring pillows, leave in car. Patient has ice for home. Pt. Has Gel packs Pt. To be NPO after Midnight, unless instructed to take medication by SAFETY ADVISOR at CPAP. Pt's. Nathen Valladares [phone] will be with patient and care for [...] Preoperative Assessment and Planning CPAP Clinic Location: [facility] The night before your surgery: * Do [...] Planning Perioperative Nursing Note Telephone Preoperative Evaluation ([facility]) - TELEPHONE ONLY, NO PHYSICAL EXAM Date: [...] Stimulator Spinal Cord Stimulator-05/17/2011 - Implanted Back Captain'S Assistant: [employer] As of 05/17/2018 Status: Implanted SKIN Piercings Remaining: No Wound (LDAs) Type of Wound (LDA): (NONE) SCREENINGS STOP-Bang Total Score: 3 [place] Risk Score (Retired): 15 Venkat index score: 100 Is someone currently physically or emotionally hurting you or your family?: Denies NUTRITION PATIENT CARE PLANNING Advance Directives (For Healthcare) Advance Directive: Patient does not have advance directive Communication/Tack Picker Needs Communication Needs: None Patient's Preferred Language: Zimbabwean Is an pbx teacher needed? : No Assistive Devices/DME: None Discharge [...] in a congregate living facility (ex. assisted living/retirement facility, halfway, [facility])?: No Have you previously tested positive for [...] 20 seconds. Use an alcohol- based hand behavior support specialist that contains at least 60% alcohol if [...] insurance card, a photo ID (like a Rib Chopper's license) and a method of payment for [...] COVID TESTING PLAN COVID Test set up [facility] on 04/11. In-basket message sent to My [facility]ist. Patient aware of plan. If you need to reschedule your COVID test to a different location or if your surgery gets rescheduled, you MUST call [phone] Monday-Monday 8am-4:30pm to get your COVID testing [...] 20 seconds. Use an alcohol- based hand behavior support specialist that contains at least 60% alcohol if [...] surgery, please call the surgery center at [phone]. documented in this encounter Plan of Treatment Not on file documented as of this encounter Goals Goal Patient Goal Type Associated Problems Recent Progress Patient-Stated? Author CCM Chronic Pain Care Plan Chronic Care Management No change(07/21 7:32 AM AUTO SERVICE WRITER) No Saran Quiñones RN Note: Problem: Chronic [...] For pain mgmt(30 mins) POCT PREOP SCREEN ([id number]) Routine 04/14/2020 6:12 AM CDT documented in this encounter Results * POCT Preop screen ([id number]) (04/14/2020 6:12 AM CDT) [facility] K POC 4.2 3.3 - 4.9 mmol/L MIYA BENITEZ Comment: Interpretive Data Unable to assess hemolysis. ??Invitro hemolysis causes falsely elevated potassium. Current Interpretive Data was last revised on 2020. Blood specimen (specimen) 04/14/2020 6:12 AM CDT 04/14/2020 6:12 AM CDT Angel Nelson MD LAB POCT ORDERABLES - SELENE CE Final Result MIYA [facility] [address] [facility] Department [place] [address] documented in this encounter Visit Diagnoses Diagnosis Carpal tunnel syndrome of right wrist- Primary Carpal tunnel syndrome of right wrist documented in this encounter Admitting Diagnoses Diagnosis Carpal tunnel syndrome of right wrist documented in this encounter Administered Medications Inactive Administered Medications - up to 3 most recent administrations Medication Order MAR Action Action Date Dose Rate Site bupivacaine (MARCAINE) 0.5 % (5 mg/mL) preservative free injection As needed, Starting on Mon04/14/20 at 0737, Intra-Op Given 04/14/2020 7:37 AM CDT 10 mL Right Hand Lactated Ringer's (LR) infusion 30 mL/hr, intravenous, [...] Motion Sickness, Prevention of Post-Operative Nausea and VomitingIndications:Mot ion Sickness,Prevention of Motion Sickness,Prevention of Post-Operative Nausea and Vomiting Medication Applied 04/14/2020 6:21 AM CDT 1 patch Behind Left Ear sodium chloride 0.9 % irrigation As needed, Starting on Mon04/14/20 at 0738, Intra-Op Given 04/14/2020 7:38 AM CDT 500 mL Surgical Site documented [...] 0626 (New Bag - Prov ider: Francisca Salinas, MABLE)0747 (Anesthesia Volume Adjustment - Provider: Sondra Villalpando CRNA)0800 (Stopped - Provider: Carmenza Christie, MABLE) Lactated Ringer's (LR) infusion 125 mL/hr, [...] 1st line pain med for patients at [facility]. Use as 2nd line at [facility] after consulting with anesthesiologist., Starting on Mon04/14/20 [...] mL, intra-catheter, As needed, line care, Flush Perkins Block Hep Locks to keep vein open., Starting on Mon04/14/20 at 0547, Pre-Op, Flush volume based on line type and size. Flush before and after each use. , Indications: Flushing documented in this encounter Orders Medications Ordered That Eyad ht Not Have Been Administered Count Last Ordered Date First Ordered Date acetaminophen (TYLENOL) tablet 500 mg 1 08/2019 ceFAZolin (ANCEF) 100 mg/mL sterile water 2,000 mg 1 04/14/2020 diphenhydrAMINE (BENADRYL) i njection 12.5 mg 1 04/14/2020 fentaNYL (SUBLIMAZE) preserv ative free syringe 25 mcg 1 04/14/2020 HYDROcodone-acetaminophen (N ORCO) 5-325 mg per tablet 1 tablet 1 04/14/2020 HYDROmorphone (DILAUDID) injection 0.2 mg 1 04/14/2020 labetaloL (NORMODYNE,TRANDAT E) injection 5 mg 1 04/14/2020 Lactated Ringer's (LR) infusion 1 0 meperidine (DEMEROL) preserv ative free injection 12.5 mg 04/14/2020 ondansetron (ZOFRAN) injection 4 mg 04/14 prochlorperazine (COMPAZINE) injection 5 mg 04/14/2020 sodium chloride 0.9% flush 0.5-20 mL 1 08/2019 documented in this encounter Care Teams Account Auditor Relationship Specialty Start Date End Date Roxanna Moreno MD PCP - General 10/21/16 documented as of this encounter
--- OUTSIDE RECORDS SUMMARY | 2024-08-03 14:56 | XMS_ITS | Encounter Summary ---
Author Organization [facility] Address [address] [place] [address] Phone Care Team Providers Care Cyber Operator Name Role Phone Roxanna Moreno MD Primary Care Provider + Reason for Visit * Reason Comments Pain Pain * Consultation (Routine) - Closed Specialty Diagnoses / Procedures Referred By Rayne navarro Referred To Contact Orthopedic Surgery Diagnoses Bilateral carpal tunnel syndrome Roxanna Valdez, SERA [address] [place] [address] Phone: tel: fax: [facility] (All Locations) Referral ID Status Reason Start Date Expiration Date V isits Requested Visits Authorized [id number] Closed Specialty Services Required 01/14/2020 07/25/2021 1 1 Encounter Details Date Type Department Care Team (Late st Contact Info) Description 01/24/2020 7:45 AM CDT Office Visit [facility] Orthopaedic Surgery [facility] 6th [place] [address] [place] [address] Angel Nelson MD [address] [facility] [facility] [address] [place] [address] Carpal tunnel syndrome, bilateral (Primary Dx); Bilateral carpal tunnel syndrome Social History Tobacco Use Types Packs/Day Years Used Date Smoking Tobacco: Never Smokeless Tobacco: Former Quit: 05/2011 Alcohol Use Standard Drinks/Week Comments Yes 0 (1 standard drink = 0.6 oz pur e alcohol) Sex and Gender Information Value Date Recorded Sex Assigned at Not on file Legal Sex Male 1:57 AM ELECTRICAL LOGGER Gender Identity Male 06/20/2021 2:35 PM ELECTRICAL LOGGER Sexual Orientation Straight 06/20/2021 2: 35 PM ELECTRICAL LOGGER documented as of this encounter Progress Notes * Angel Nelson MD - 01/24/2020 7:45 AM CDT Orthopaedic Surgery New Clinic Patient Reason for Visit: Pain of the Left Hand and Pain of the Right Hand History of Present Illness: This is a very pleasant 39-year-old male with a several year history of right greater than left hand numbness and tingling. He states that this began when he was chopping down a tree several years ago. His pain somewhat subsided after that, he has had radicular pain from his neck down to his hand. However recently over the past 6+ months he has had increasing pain in the right greater than left side in the hand as well as numbness and tingling. This mostly affects of the thumb, index and long finger, he does not really have any symptoms in his small finger. He describes the pain as dull and moderate severity. It is better with rest, worse with activity. He has pain at night that wakes him up as well. He has never had any splints for this he has had medication and injections previously from pain management for his neck. Past Medical History He has a past medical history of Anxiety, Back pain, OTHER MEDICAL, Hyperlipidemia, Hypertension, Neck pain, and Personal history of other diseases of the circulatory system. Past Surgical History He has a past surgical history that includes Other surgical history; Other surgical history; Anterior cruciate ligament repair; Other surgical history; Other surgical history; Back surgery; Shoulder surgery; Knee surgery; Spinal cord stimulator implant; and nerve block. Initial Review of Medications He has a current medication list which includes the following prescription(s): atorvastatin, duloxetine dr, gabapentin, hydrochlorothiazide, irbesartan, lidocaine, sertraline, and tens units, and thefollowing Facility-Administered Medications: definity. Allergies He has No Known Allergies. Social History He reports that he has never smoked. He quit smokeless tobacco use about 8 years ago. He reports current alcohol use. He reports that he does not use drugs. He works in [employer], lives with his and daughter. Family History His family history includes Cancer in his maternal grandfather, mother, and another family member; Early in his maternal grandfather; Heart disease in his maternal grandmother; Hypertension in his father; Kidney disease in his mother; Lung cancer in his maternal grandfather; Other in his mother; Skin cancer in his mother. Review of Systems Review of Systems Musculoskeletal: Positive for back pain, joint pain and neck pain. Neurological: Positive for tingling. All other systems reviewed and are negative. Physical Exam: Gen.: The patient is awake, alert and in no acute distress. Head: Normocephalic, atraumatic Eyes: Extraocular movements intact, sclerae anicteric Lungs: Nonlabored respirations on room air Cardiac: No evidence of cyanosis, clubbing or edema, fingertips are warm and well-perfused. Musculoskeletal: Focus examination of bilateral upper extremities demonstrates intact soft tissue envelope. He has a negative Tinel the bilateral carpal tunnel, positive Durkan's on the right, negative on the left. He has a weakly positive elbow flexion compression test on the right, negative on the left. Negative Tinel at the cubital tunnel bilaterally. Two-point discrimination is 5 mm throughout the median ulnar nerve distributions bilaterally. He is able fire FDS, FDP and EDC times digits 2 through 5 as well as FPL, EPL intrinsics. Radiographic Evaluation: None Nerve conduction studies were reviewed, these demonstrate right greater than left carpal tunnel syndrome Assessment and Plan: 1. Right greater than left carpal tunnel syndrome 2. Cervical spondylosis The nature of the clinical findings were discussed in detail with patient. He has been seen by Neurology, who diagnosed him with cervical spondylosis as well as carpal tunnel syndrome. I discussed with him that he may be suffering from double crush phenomenon, and that is reasonable treat carpal tunnel, but this may not completely alleviate his symptoms. He has not utilized any night splints, therefore I recommended this at her 1st approach. He was given these today. If he is not better in the next 6-8 weeks, he will contact our office, and we can see him back via telemedicine appointment to discuss possible surgery. He is pleased with this plan. Follow-up: Return to clinic in 6-8 weeks if necessary via telemedicine to discuss surgery Angel Nelson M.D., M.Sc. Convex Grinder Operator, Department of Orthopaedic Surgery [facility] [address] [place], [place] [address] documented in this encounter Plan of Treatment Not on file documented as of this encounter Visit Diagnoses Diagnosis Carpal tunnel syndrome, bilateral- Primary Carpal tunnel syndrome Bilateral carpal tunnel syndrome Carpal tunnel syndrome documented in this encounter Orders Outpatient Referral Count Last Ordered Date Fir st Ordered Date AMB REFERRAL TO ORTHOPEDIC SURGERY 1 2019 documented in this encounter Care Teams Cyber Operator Relationship Specialty Start Date End Date Roxanna Moreno MD PCP - General 10/21/16 documented as of this encounter
--- OUTSIDE RECORDS SUMMARY | 2024-08-03 14:56 | XMS_ITS | Encounter Summary ---
Author Organization [facility] Address [address] [place] [address] Care Team Providers Care Event Manager Name Role Phone Roxanna Moreno MD Primary Care Provider + Encounter Details Date Type Department Care Team (Late st Contact Info) Description 04/24/2020 12:45 PM CDT [address] [id number] Angel Nelson MD [address] [facility] [address] [address] Preop testing Discharge Disposition: Discharge to home or self care Social History Tobacco Use Types Packs/Day Years Used Date Smoking Tobacco: Never Smokeless Tobacco: Former Quit: 05/2011 Alcohol Use Standard Drinks/Week Comments Yes 0 (1 standard drink = 0.6 oz pur e alcohol) RARE Sex and Gender Information Value Date Recorded Sex Assigned at Not on file Legal Sex Male 1:57 AM MOWING MACHINE OPERATOR Gender Identity Male 06/20/2021 2:35 PM MOWING MACHINE OPERATOR Sexual Orientation Straight 06/20/2021 2: 35 PM MOWING MACHINE OPERATOR documented as of this encounter Discharge Disposition Disposition Code Departure Means Destination Discharge to home or self care documented in this encounter Plan of Treatment Not on file documented as of this encounter Goals Goal Patient Goal Type Associated Problems Recent Progress Patient-Stated? Author CCM Chronic Pain Care Plan Chronic Care Management No change(07/21 7:32 AM MOWING MACHINE OPERATOR) No Saran Quiñones, MABLE Note: Problem: Chronic Pain Goals: 1. Minimize further functional decline 2. Maximize quality of life 3. Control pain Strategies: - Activity/exercise program recommendation - Conservative stepwise pain medicine strategy with multi-disciplinary approach - Recommend healthy lifestyle strategies and compensatory methods as needed documented as of this encounter Procedures Procedure Name Priority Date/Time Associated Diagnosis Comments COVID-19 CORONAVIRUS RNA Routine 04/24/2020 12:45 PM CDT Preop testing documented in this encounter Results * COVID-19 Coronavirus RNA Nasopharyngeal (04/24/2020 12:45 PM CDT) COVID-19 RNA Not Detected JARRET VEGA (ARASH) Comment: Interpretive Data Testing performed at [facility]. The 2018-Novel [...] last revised on 2019. Testing performed by: [facility], 1 [facility] [place]., [address] Nasopharyngeal 04/24/2020 12 :45 PM CDT 04/24/2020 6:23 PM CDT Narrative MIYA VEGA (ARASH) - 04/25/2020 6:00 AM CDT Is the patient experiencing any symptoms consistent with COVID (eg. Fever, cough, shortness of breath)?->No What is the reason for testing?->Screening prior to scheduled (>12 hr) surgery or procedure us Angel Nelson MD LAB MICROBIOLOGY - GENERAL ORDERABLES Final Result MIYA VEGA (ARASH) 1 [facility] Department [place] [address] documented in this encounter Visit Diagnoses Diagnosis Preop testing Unspecified pre-operative examination documented in this encounter Care Teams Event Manager Relationship Specialty Start Date End Date Roxanna Moreno MD PCP - General 10/21/16 documented as of this encounter
--- OUTSIDE RECORDS SUMMARY | 2024-08-03 14:56 | XMS_ITS | Encounter Summary ---
Author Organization [facility] Healthcare Address [address] [place] [address] Care Team Providers Care Shellfish Grower Name Role Phone Roxanna Moreno MD Primary Care Provider + Encounter Details Date Type Department Care Team (Latest Contact Info) Description 04/28/2020 5:32 AM CDT - 04/28/2020 8:41 AM CDT Hospital Encounter [facility] [address] [place] [address] Angel Nelson MD [address] [facility] [address] [place] [address] Discharge Disposition: Discharge to home or self care Social History Tobacco Use Types Packs/Day Years Used Date Smoking Tobacco: Never Smokeless Tobacco: Former Quit: 05/2011 Alcohol Use Standard Drinks/Week Comments Yes 0 (1 standard drink = 0.6 oz pur e alcohol) RARE 3-4 q year Sex and Gender Information Value Date Recorded Sex Assigned at Not on file Legal Sex Male 1:57 AM SUMMER CHILD CAREGIVER Gender Identity Male 06/20/2021 2:35 PM SUMMER CHILD CAREGIVER Sexual Orientation Straight 06/20/2021 2: 35 PM SUMMER CHILD CAREGIVER documented as of this encounter Last Filed Vital Signs Vital Sign Reading Time Taken Comments Blood Pressure 131/90 04/28/2020 8:05 AM CDT Pulse 60 04/28/2020 8:10 AM CDT Temperature 36.5 ??C (97.7 ??F) 04/28/2020 7:55 AM CD T Respiratory Rate 16 04/28/2020 8:10 AM CDT Oxygen Saturation 95% 04/28/2020 8:10 AM CDT Inhaled Oxygen Concentration - - Weight 113.4 kg (249 lb 14.4 oz) 04/28/2020 5:46 AM CDT Height 177.8 cm (5' 10 ) 04/28/2020 5:46 AM CDT Body Mass Index 35.86 04/28/2020 5:46 AM CDT documented in this encounter Discharge Diagnoses Diagnosis Carpal tunnel syndrome, left upper limb - CARPAL TUNNEL SYNDROME, LEFT UPPER LIMB Essential (primary) hypertension - ESSENTIAL (PRIMARY) HYPERTENSION Unspecified essential hypertension Hyperlipidemia, unspecified - HYPERLIPIDEMIA, UNSPECIFIED Anxiety disorder, unspecified - ANXIETY DISORDER, UNSPECIFIED Obesity, unspecified - OBESITY, UNSPECIFIED Body mass index (BMI) 35.0-35.9, adult - BODY MASS INDEX (BMI) 35.0-35.9, ADULT Other senior care (current) drug therapy - OTHER INTERMEDIATE (CURRENT) DRUG THERAPY documented in this encounter Discharge Instructions * [...] the prescribed pain medication, you may take alaw-izx-fayqgop pain relievers such as ibuprofen if adequate [...] phone number for Dr. Nelson???s office is [phone]. 2. The general scheduling number is [phone]. 3. Contact your physician's office during office hours or the [facility] at . The orthopedic resident on-call can [...] this encounter H&P Notes * Shirin Bales, CERTIFIED ACTIVITIES DIRECTOR - 04/28/2020 6:02 AM CDT Outpatient Pre-Procedure [...] TW Conv), battery pack right lower back Facility-Administered [...] 04/28/2020 8:00 AM CDT Called pt's to peanut picker pt and go over d/c instructions. * [...] release Attending Surgeon: Angel Nelson MD, M.Sc. Emergency Communications Operator: 1. Carlos Ty MD 2. Roddy Hart, [...] Resident - Assisting Anesthesiologist: Brendan Mathis MD LAB TECHNOLOGIST: Sondra Villalpando CRNA Welt Maker: Tish Solo RN Scrub: Neha Christie RN [...] AM CDT * Perioperative Nursing Note - Niala Katz RN - 04/28/2020 6:35 AM CDT [...] that you and your doctor have chosen [facility] for your surgery. We hope the following information will help make your visit a pleasant one. The name of the building is [facility] [place] in [place]. Directions to facility ([place] [address] [place]. [place] [address] When you enter the building, look directly to your left, you will see 2 glass double doors. These double doors say [address]. Go through those double doors and check in with the receptionist clerk. Bring glass/contact case Pt. Has braces/perm. Retainer- upper lower Bring pillows, leave in car. Patient has ice for home. Pt. To be NPO after Midnight, unless instructed to take medication by CERTIFIED ACTIVITIES DIRECTOR at CPAP. No gum, no mints,no candy, no cough drops, CBD oil, no marijuana, no Chewing tobacco, or vaping. No ice or water. You may brush your teeth, just make sure you spit it all out. Pt's. Amina [phone] will be with patient and care for [...] Assessment and Planning CPAP Clinic Location: [facility] The night before your surgery: [...] Nursing Note - Donald Terrell RN - 04/17/2020 1:44 PM CDT Center for Preoperative Assessment and Planning Perioperative Nursing Note Telephone Preoperative Evaluation ([facility]) - TELEPHONE ONLY, NO PHYSICAL EXAM [...] Stimulator Spinal Cord Stimulator-05/17/2011 - Implanted Back Materials Development Engineer: [employer] As of 05/17/2018 Status: Implanted SKIN Piercings Remaining: No Wound (LDAs) Type of Wound (LDA): Surgical site SCREENINGS STOP-Bang Total Score: 2 [place] Fall Risk Score (Retired): 15 Venkat index score: 95 Is someone currently physically or emotionally hurting you or your family?: Denies NUTRITION PATIENT CARE PLANNING Advance Directives (For Healthcare) Advance Directive: Patient does not have advance directive Communication/Roof Painter Needs Communication Needs: None Patient's Preferred Language: Puerto Rican Is an aerial photograph interpreter needed? : No Assistive Devices/DME: None Discharge [...] in a congregate living facility (ex. assisted living/jail facility, half-way, care home)?: No Have you previously tested positive [...] 20 seconds. Use an alcohol- based hand director global intelligence that contains at least 60% alcohol if [...] insurance card, a photo ID (like a Cnc Mill Set Up Operator's license) and a method of payment for [...] COVID Test Request Placed in Epic to [facility]. Test to be performed on 04/25/2020 [facility]. If you need to reschedule your COVID test to a different location or if your surgery gets rescheduled, you MUST call [phone] Monday-Monday 8am-4:30pm to get your COVID testing rescheduled or your lab order will not be available at Testing Sites. COVID Testing is only valid for up to 96 hours prior to surgery date, unless otherwise specified. If you are unable to reach staff at the above phone number, please call the CPAP Staff at [phone]. This number cannot order a lab test, [...] 20 seconds. Use an alcohol- based hand director global intelligence that contains at least 60% alcohol if [...] surgery, please call the surgery center at [phone]. documented in this encounter Plan of Treatment Not on file documented as of this encounter Goals Goal Patient Goal Type Associated Problems Recent Progress Patient-Stated? Author CCM Chronic Pain Care Plan Chronic Care Management No change(07/21 7:32 AM SUMMER CHILD CAREGIVER) No Saran Quiñones RN Note: Problem: Chronic [...] has neurostimulator - T-9 - Will bring [id number] mins POCT PREOP SCREEN ([id number]-HCT) Routine 04/28/2020 6:24 AM CDT documented in this encounter Results * POCT Preop screen ([id number]-[id number]-Iad-Hct) (04/28/2020 6:24 AM CDT) K POC 3.7 3.3 - 4.9 mmol/L MIYA [facility] Comment: Interpretive Data Unable to assess hemolysis. ??Invitro hemolysis causes falsely elevated potassium. Current Interpretive Data was last revised on 2020. Blood specimen (specimen) 04/28/2020 6:24 AM CDT 04/28/2020 6:24 AM CDT Angel Nelson MD LAB POCT ORDERABLES - SELENE CE Final Result MIYA BENITEZ [facility] Department [place] [address] documented in this encounter Visit Diagnoses Diagnosis Carpal tunnel syndrome of left wrist- Primary documented in this encounter Admitting [...] 6:42 AM CDT 30 mL/hr 30 mL/hr documented in this encounter Discontinued Medications Medication [...] [id number] (Continued from OR - Provider: Francisca Schuster, MABLE)[id number] (Stopped - Provider: Francisca Schuster, MABLE) PRN [...] 1st line pain med for patients at [facility]. Use as 2nd line at after consulting with anesthesiologist., Starting on Mon04/28/20 [...] min PRN, shivering, Starting on Mon04/28/20 at 07, For 2 doses, Phase I, Max cumulative [...] Ordered Date acetaminophen (TYLENOL) tablet 500 mg bupivacaine (MARCAINE) 0.5 % (5 mg/mL) preservative free injection 04/28/2020 diphenhydrAMINE (BENADRYL) i njection 12.5 mg 04/28/2020 fentaNYL (SUBLIMAZE) preserv ative free syringe 25 mcg 04/28/2020 HYDROcodone-acetaminophen (N ORCO) 5-325 mg per tablet 1 tablet 04/28/2020 HYDROmorphone (DILAUDID) injection 0.2 mg 04/28/2020 labetaloL (NORMODYNE,TRANDAT E) injection 5 mg 04/28/2020 Lactated Ringer's (LR) infusion 0 lidocaine (XYLOCAINE) 10 mg/ mL (1 %) injection 2-10 mg 1 04/28/2020 meperidine (DEMEROL) preserv ative free injection 12.5 mg 04/28/2020 ondansetron (ZOFRAN) injection 4 mg 04/28 prochlorperazine (COMPAZINE) injection 5 mg 04/28/2020 scopolamine patch 72 hour 1 patch 1 020 sodium chloride 0.9 % irrigation 04/28/20 20 sodium chloride 0.9% flush 0.5-20 mL 04/14 documented in this encounter Care Teams Shellfish Grower Relationship Specialty Start Date End Date Roxanna Moreno MD PCP - General 10/21/16 documented as of this encounter
--- OUTSIDE RECORDS SUMMARY | 2024-08-03 14:56 | XMS_ITS | Encounter Summary ---
Author Organization [facility] Address [address] [place] [address] Phone Care Team Providers Care Health Care / Medical Job Titles Name Role Phone Roxanna Moreno MD Primary Care Provider + Reason for Visit * Reason Comments Carpal Tunnel Carpal Tunnel Encounter Details Date Type Department Care Team (Late st Contact Info) Description 03/27/2020 12:15 PM CDT Telemedicine [facility] Orthopaedic Surgery [facility] 6th [place] [address] [place] [address] Angel Nelson MD [address] [facility] [address] [place] [address] Carpal tunnel syndrome, bilateral (Primary Dx) Social History Tobacco Use Types Packs/Day Years Used Date Smoking Tobacco: Never Smokeless Tobacco: Former Quit: 05/2011 Alcohol Use Standard Drinks/Week Comments Yes 0 (1 standard drink = 0.6 oz pur e alcohol) Sex and Gender Information Value Date Recorded Sex Assigned at Not on file Legal Sex Male 1:57 AM BLACKSMITH FARM Gender Identity Male 06/20/2021 2:35 PM BLACKSMITH FARM Sexual Orientation Straight 06/20/2021 2: 35 PM BLACKSMITH FARM documented as of this encounter Progress Notes * Angel Nelson MD - 03/27/2020 12:15 PM CDT Images from the original note were not included. Orthopaedic Surgery Telemedicine Follow Up CC: Carpal Tunnel of the Left Hand and Carpal Tunnel of the Right Hand Subjective: Patient returns today via telemedicine appointment for evaluation of bilateral hand numbness and tingling. 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 He has not tried night splints, therefore he was given the splints. He has worn these, and notes that he does have some relief, more on the left on the right, but the relief is incomplete. He would like to consider surgery. Objective: Gen.: The patient is awake, alert and in no acute distress. Head: Normocephalic, atraumatic Eyes: Extraocular movements intact, sclerae anicteric Lungs: Nonlabored respirations on room air Cardiac: No evidence of cyanosis, clubbing or edema, fingertips are warm and well-perfused. The patient is able to make a composite fist and fully extend all digits. He complains of pain moreso on the right than the left. He has subjectively diminished sensation in median nerve distribution. Radiographic Evaluation: None Assessment and Plan: 1. Bilateral, right greater than left carpal tunnel syndrome The nature of the clinical findings reviewed viewed in detail with patient. His history and nerve conduction studies are all consistent with carpal tunnel syndrome. He would like to proceed with staged carpal tunnel release. We will perform right carpal tunnel release followed by left carpal tunnelrelease. Risks, benefits alternatives were discussed in detail including risk of infection, risk ofdamage to nerves, vessels and tendons and risk of incomplete relief. Expressed understanding the above. He would like to proceed with surgery. We will work to schedule surgical dates. Follow-up: As above This was a telemedicine visit with Aleksandar Olsen alone which took place via a real-time video connection (Zoom/similar). During the visit, I was located in the clinic and [facility]. The session started at 12:05 and ended at 12:20. The patient has been informed that the visit may not be secure and acknowledged the information. I have explained the option of participating in a telephone or video visit during the [facility] to the patient. After being given an opportunity to ask questions about and discuss this type of visit, the patient verbally consented to proceeding with the telephone/video visit.The patient understands that this service replaces an office visit and they may be billed and/or responsible for any applicable copayments. MD Angel Ruggiero M.D., M.Sc. Wireless Store Manager, Department of Orthopaedic Surgery [facility] [place] [address] [place], [place] [address] documented in this encounter Plan of Treatment Not on file documented as of this encounter Goals Goal Patient Goal Type Associated Problems Recent Progress Patient-Stated? Author CCM Chronic Pain Care Plan Chronic Care Management No change(07/21 7:32 AM BLACKSMITH FARM) No Saran Quiñones, MABLE Note: Problem: Chronic [...] syndrome documented in this encounter Care Teams Health Care / Medical Job Titles Relationship Specialty Start Date End Date Roxanna Moreno MD PCP - General 10/21/16 documented as of this encounter
--- OUTSIDE RECORDS SUMMARY | 2024-08-03 14:56 | XMS_ITS | Encounter Summary ---
Author Organization [facility] Healthcare Address [address] [place] [address] Care Team Providers Care Intervention Specialist Name Role Phone Roxanna Moreno MD Primary Care Provider + Encounter Details Date Type Department Care Team (Late st Contact Info) Description 04/11/2020 9:15 AM CDT Lab [address] [address] Hema Michel MD [address] [facility] [address] Pre-procedure lab exam Discharge Disposition: Discharge to home or self care Social History Tobacco Use Types Packs/Day Years Used Date Smoking Tobacco: Never Smokeless Tobacco: Former Quit: 05/2011 Alcohol Use Standard Drinks/Week Comments Yes 0 (1 standard drink = 0.6 oz pur e alcohol) RARE Sex and Gender Information Value Date Recorded Sex Assigned at Not on file Legal Sex Male 1:57 AM API ARCHITECT Gender Identity Male 06/20/2021 2:35 PM API ARCHITECT Sexual Orientation Straight 06/20/2021 2: 35 PM API ARCHITECT documented as of this encounter Discharge Disposition Disposition Code Departure Means Destination Discharge to home or self care documented in this encounter Plan of Treatment Not on file documented as of this encounter Goals Goal Patient Goal Type Associated Problems Recent Progress Patient-Stated? Author CCM Chronic Pain Care Plan Chronic Care Management No change(07/21 7:32 AM API ARCHITECT) No Saran Quiñones, MABLE Note: Problem: Chronic Pain Goals: 1. Minimize further functional decline 2. Maximize quality of life 3. Control pain Strategies: - Activity/exercise program recommendation - Conservative stepwise pain medicine strategy with multi-disciplinary approach - Recommend healthy lifestyle strategies and compensatory methods as needed documented as of this encounter Procedures Procedure Name Priority Date/Time Associated Diagnosis Comments COVID-19 CORONAVIRUS RNA Routine 04/11/2020 9:12 AM CDT Pre-procedure lab exam documented in this encounter Results * COVID-19 Coronavirus RNA Nasopharyngeal (04/11/2020 9:12 AM CDT) COVID-19 RNA Not Detected JARRET VEGA (ARASH) Comment: Interpretive Data Testing performed at [facility] Molecular Infectious Disease Laboratory. The 2019-Novel Coronavirus Assay (COVID-19) Real Time RT-PCR assay [...] last revised on 2019. Testing performed by: [facility] [place] [facility], [address] [facility], [place]., [address] Nasopharyngeal 04/11/2020 9: 12 AM CDT 04/11/2020 12:55 PM CDT Narrative MIYA VEGA (ARASH) - 04/12/2020 10:31 AM CDT Is the patient experiencing any symptoms consistent with COVID (eg. Fever, cough, shortness of breath)?->No What is the reason for testing?->Screening prior to scheduled (>12 hr) surgery or procedure us Hema Michel MD LAB MICROBIOLOGY - GENERA L ORDERABLES Final Result MIYA VEGA (ARASH) 1 [facility] Department [place] [address] documented in this encounter Visit Diagnoses Diagnosis Pre-procedure lab exam Pre-procedural laboratory examination documented in this encounter Care Teams Intervention Specialist Relationship Specialty Start Date End Date Roxanna Moreno MD PCP - General 10/21/16 documented as of this encounter
--- OUTSIDE RECORDS SUMMARY | 2024-08-03 14:56 | XMS_ITS | Encounter Summary ---
Author Organization [facility] Healthcare Address [address] [place] [address] Care Team Providers Care Senior Hadoop Developer Name Role Phone Roxanna Moreno MD Primary Care Provider + Encounter Details Date Type Department Care Team (Late st Contact Info) Description 04/10/2020 Orders Only [facility] HealthCare/ Physicians [address] [place] [address] Hema Michel MD [facility] 6A[address]6B[address] [place] [address] Pre-procedure lab exam (Primary Dx) Social History Tobacco Use Types Packs/Day Years Used Date Smoking Tobacco: Never Smokeless Tobacco: Former Quit: 05/2011 Alcohol Use Standard Drinks/Week Comments Yes 0 (1 standard drink = 0.6 oz pur e alcohol) RARE Sex and Gender Information Value Date Recorded Sex Assigned at Not on file Legal Sex Male 1:57 AM SETTER UP Gender Identity Male 06/20/2021 2:35 PM SETTER UP Sexual Orientation Straight 06/20/2021 2: 35 PM SETTER UP documented as of this encounter Progress Notes * Leslie Gallegos MA - 04/10/2020 7:53 AM CDT Pre-procedure COVID-19 testing at [facility] documented in this encounter Plan of Treatment Not on file documented as of this encounter Goals Goal Patient Goal Type Associated Problems Recent Progress Patient-Stated? Author CCM Chronic Pain Care Plan Chronic Care Management No change(07/21 7:32 AM SETTER UP) Saran Garcia, MABLE Note: Problem: Chronic Pain Goals: 1. [...] (ARASH) Comment: Interpretive Data Testing performed at [facility] [place] [facility] Molecular Infectious Disease Laboratory. The 2018-Novel [...] last revised on 2019. Testing performed by: [facility], [address] [facility], [place]., [address] Nasopharyngeal 04/11/2020 9: 12 AM CDT 04/11/2020 [...] ORDERABLES Final Result MIYA VEGA (ARASH) 1 [facility] Department [place] [address] documented in this encounter Visit Diagnoses Diagnosis Pre-procedure lab exam- Primary Pre-procedural laboratory examination Pre-procedure lab exam Pre-procedural laboratory examination documented in this encounter Care Teams Senior Hadoop Developer Relationship Specialty Start Date End Date Roxanna Moreno MD PCP - General 10/21/16 documented as of this encounter
--- OUTSIDE RECORDS SUMMARY | 2024-08-03 14:57 | XMS_ITS | Encounter Summary ---
Author Organization [facility] Healthcare Address [address] [place] [address] Care Team Providers Care Commercial Construction Project Manager Name Role Phone Roxanna Moreno MD Primary Care Provider + Reason for Visit * Diagnostic Imaging (Routine) - Closed Specialty Diagnoses / Procedures Referred By Contmarsha t Referred To Contact Diagnoses Low back pain Procedures FL Fluoro Guided Needle Placement Dayanna Crump MD Phone: tel: fax: [address] [address] Referral ID Status Reason Start Date Expiration Date Visits Re quested Visits Authorized [id number] Closed 01/15/2019 07/26/2020 1 1 Encounter Details Date Type Department Care Team (Late st Contact Info) Description 01/22/2019 7:35 AM CDT Ancillary Procedure [facility] at [address] [address] Dayanna Crump MD [address] [place] [address] Low back pain Social History Tobacco Use Types Packs/Day Years Used Date Smoking Tobacco: Never Smokeless Tobacco: Never Alcohol Use Standard Drinks/Week Comments Yes 0 (1 standard drink = 0.6 oz pur e alcohol) Sex and Gender Information Value Date Recorded Sex Assigned at Not on file Legal Sex Male 1:57 AM STEEL WOOL MACHINE OPERATOR Gender Identity Male 06/20/2021 2:35 PM STEEL WOOL MACHINE OPERATOR Sexual Orientation Straight 06/20/2021 2: 35 PM STEEL WOOL MACHINE OPERATOR documented as of this encounter Plan of Treatment Not on file documented as of this encounter Procedures Procedure Name Priority Date/Time Associated Diagnosis Comments FLUORO GUIDED NEEDLE PLACEMENT Schedule Routine, Read Routine (OP Routine) 01/22/2019 7:55 AM CDT Low back pain documented in this encounter Results * FL Fluoro Guided Needle Placement (01/22/2019 7:55 AM CDT) Narrative [facility] - 01/22/2019 8:26 AM CDT The images from this study are not interpreted by Radiology. ??Please refer to the physician's procedure / OR operative note. us Dayanna Crump MD IMG FLUOROSCOPY [employer] Final Result [facility] documented in this encounter Visit Diagnoses Diagnosis Low back pain Lumbago documented in this encounter Care Teams Commercial Construction Project Manager Relationship Specialty Start Date End Date Roxanna Moreno MD PCP - General 10/21/16 documented as of this encounter
--- OUTSIDE RECORDS SUMMARY | 2024-08-03 14:57 | XMS_ITS | Encounter Summary ---
Author Organization [facility] Healthcare Address [address] [place] [address] Care Team Providers Care In Class Special Education Teacher Name Role Phone Roxanna Moreno MD Primary Care Provider + Reason for Visit * Reason Onset Date Comments pre call 08/23/2019 Encounter Details Date Type Department Care Team (Late st Contact Info) Description 08/23/2019 Telephone [place] [id number] [facility] 1st [place] [address] Sondra Cabrera RN pre call Social History Tobacco Use Types Packs/Day Years Used Date Smoking Tobacco: Never Smokeless Tobacco: Never Alcohol Use Standard Drinks/Week Comments Yes 0 (1 standard drink = 0.6 oz pur e alcohol) Sex and Gender Information Value Date Recorded Sex Assigned at Not on file Legal Sex Male 1:57 AM LANG INTERPRETER Gender Identity Male 06/20/2021 2:35 PM LANG INTERPRETER Sexual Orientation Straight 06/20/2021 2: 35 PM LANG INTERPRETER documented as of this encounter Miscellaneous Notes * Telephone Encounter - Sondra Cabrera RN - 08/23/2019 2:49 PM CST See preproc INTERPRETER * Pre-Procedure Instructions - Sondra Cabrera RN - 08/23/2019 2:48 PM LANG INTERPRETER Voicemail message left with the following information: ? ? Procedure Date & Time: 08/27/2019 ??? Arrival 15 minutes prior to appointment ??? Discharge transportation needed ??? Oral intake: [x] Able to eat, drink, and take medications as normal. [] No solid food for 6 hours; No liquids for 3 hours; Take medications with sips of water. ??? Notify the office if fever present in the last seven days, or currently on antibiotics. INTERPRETER documented in this encounter Plan of Treatment Not on file documented as of this encounter Visit Diagnoses Not on filedocumented in this encounter Care Teams In Class Special Education Teacher Relationship Specialty Start Date End Date Roxanna Moreno MD PCP - General 10/21/16 documented as of this encounter
--- OUTSIDE RECORDS SUMMARY | 2024-08-03 14:57 | XMS_ITS | Encounter Summary ---
Author Organization [facility] Address [address] [place] [address] Phone Care Team Providers Care General Manager Land Department Name Role Phone Roxanna Moreno MD Primary Care Provider + Reason for Visit * Neurology (Routine) - Closed Specialty Diagnoses / Procedures Referred By Contac t Referred To Contact Neurology Diagnoses Radicular pain in right arm Procedures EMG/NCV -Please select the performing region: [facility] (All Locations); Procedure performed at: [facility] EMG Lab; Clinical Summary: Right-sided radicular pain in the C6, C7 distribution with normal CT cervical spine. Patient cannot hav... Dayanna Crump MD Phone: tel: fax: [facility] Neurological Testing [address] [facility] 6th [place] [address] Phone: tel: fax: Referral ID Status Reason Start Date Expiration Date Visits Re quested Visits Authorized [id number] Closed 09/30/2019 04/10/2021 1 1 Encounter Details Date Type Department Care Team (Latest Contact Info) Description 10/22/2019 10:00 AM CDT Procedure visit [facility] Neurological Testing [address] [facility] [address]th [place] [address] Radicular pain in right arm Social History Tobacco Use Types Packs/Day Years Used Date Smoking Tobacco: Never Smokeless Tobacco: Never Alcohol Use Standard Drinks/Week Comments Yes 0 (1 standard drink = 0.6 oz pur e alcohol) Sex and Gender Information Value Date Recorded Sex Assigned at Not on file Legal Sex Male 1:57 AM EXTRUDER TENDER Gender Identity Male 06/20/2021 2:35 PM EXTRUDER TENDER Sexual Orientation Straight 06/20/2021 2: 35 PM EXTRUDER TENDER documented as of this encounter Procedure Notes * Wu Bradshaw MD - 10/22/2019 10:00 AM CDT Images from the original note were not included. Procedures [facility] DEPARTMENT OF NEUROLOGY NEUROMUSCULAR ELECTRODIAGNOSTIC LABORATORY CLINICAL ELECTROMYOGRAPHY REPORT Patient: Aleksandar Olsen Birthdate: 1980 Study No: [id number] MRN No: [id number] Referring M.D.: Dayanna Crump* Date of Study:10/22/2019 Examined by: Wu Bradshaw MD REASON FOR REFERRAL: Right arm pain. SUMMARY OF FINDINGS: 1. Mildly slow right median motor conduction velocity. Normal ulnar motor. 2. Prolonged right median sensory and bilateral median mixed nerve latencies. Normal ulnar sensory and mixed NCSs. 3. Mild chronic reinnervation on EMG of right APB. Slightly large MUPS in deltoid otherwise normal.See table below. Temperature was maintained above 32??C in the hand and above 30??C in the foot for all NCSs. 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 The borderline finding on EMG of the right deltoid is non-diagnostic. No clear findings to support right cervical radiculopathy. Left carpal tunnel syndrome. Additional studies can be performed in the left arm to further characterize this. Wu Bradshaw MD Electromyographer Barrett. By signing this report, the attending Electromyographer certifies that he/she personally reviewed the electrodiagnostic study and edited the report to fully conform with his/her intent. Abbreviations : CMAP = compound muscle action potential SNAP = sensory nerve action potential CNAP = compound nerve action potential MUP = motor unit potential Fib = fibrillation PSW = positive sharp wave NCS = nerve conduction study RNS = repetitive nerve stimulation Inquiries regarding study/report - call . Appointments - call . Fax no.: . Our correspondence address : [place] [address] [employer] Neurology, EMG Lab [place], [place] Data Report Full Name: Aleksandar Olsen Gender: Male Date of : 1980 Visit Date: 10/22/2019 09:59 Age: 39 Years 1 Months Old Examining Physician: Dr. Bradshaw Referring Physician: Dr. Gaines Height: 5 feet 11 inch Patient History: 39 y/o M with RUE pain and numbness involving digits 1,2,3 of 3 years duration MNC Nerve / Sites Latency Amplitude Segments Distance Lat Diff Velocity ms mV mm ms m/s R Median - APB Wrist 4.32 9.8 Wrist - APB 70 Elbow 9.69 9.5 Elbow - Wrist 250 5.36 46.6 R Ulnar - ADM WRIST 2.92 9.1 WRIST - ADM 70 BELOW ELBOW 7.19 8.9 BELOW ELBOW - WRIST 230 4.27 53.9 ABOVE ELBOW 8.96 8.8 ABOVE ELBOW - BELOW ELBOW 100 1.77 56.5 AXILLA 10.83 8.8 AXILLA - ABOVE ELBOW 100 1.88 53.3 SNC Nerve / Sites Onset Lat Peak Lat Amplitude OnsetDiff Distance Cond Ye ms ms ??V ms mm m/s R Median, Ulnar - Digits 2, 4, 4, 5 Median Digit 2 3.6 4.4 17 3.6 140 39 Ulnar Digit 5 2.4 3.1 19 2.4 120 49 R Median, Ulnar - Orthodromic Digits Median Digit II-III (Palm) 2.2 3.0 50 2.2 80 36 Median Digit III-IV (Palm) 2.3 3.0 51 2.3 80 34 Ulnar Digit IV-V (Palm) 1.3 1.9 17 1.3 80 61 L Median, Ulnar - Orthodromic Digits Median Digit II-III (Palm) 2.4 3.1 40 2.4 80 33 Median Digit III-IV (Palm) 2.3 3.1 53 2.3 80 34 Ulnar Digit IV-V (Palm) 1.4 1.9 11 1.4 80 59 Summary Insertional Spontaneous MUAP Comments Muscle Nerve Roots Activity Fib PSW Fasc Other Dur. Amp Poly Recruit Activate Comments R. Deltoid Axillary C5-C6 Normal None None None . Normal Sl Incr None Normal Normal . R. Biceps brachii Musculocutaneous C5-C6 Normal None None None . Normal Normal None Normal Normal . R. Pronator teres Median C6-C7 Normal None None None . Normal Normal None Normal Normal . R. Triceps brachii (Lateral head) Radial C6-C8 Normal None None None . Normal Normal None Normal Normal . R. Extensor digitorum communis Radial C7-C8 Normal None None None . Normal Normal None Normal Normal . R. Abductor pollicis brevis Median C8-T1 Normal None None None . Sl Incr Mod Incr None Mild Red Normal . R. Infraspinatus Suprascapular C5-C6 Normal None None None . Normal Normal None Normal Normal . R. C6 paraspinal Spinal C6- Normal None None None . Normal Normal None R. First dorsal interosseous Ulnar C8-T1 Normal None None None . Normal Normal None Normal Normal . documented in this encounter Plan of Treatment Not on file documented as of this encounter Visit Diagnoses Diagnosis Radicular pain in right arm Unspecified neuralgia, neuritis, and radiculitis documented in this encounter Orders Imaging Orders Without Results Count Last Order ed Date First Ordered Date EMG/NCV 1 10/22/2019 documented in this encounter Care Teams General Manager Land Department Relationship Specialty Start Date End Date Roxanna Moreno MD PCP - General 10/21/16 documented as of this encounter
--- OUTSIDE RECORDS SUMMARY | 2024-08-03 14:57 | XMS_ITS | Encounter Summary ---
Author Organization [facility] Address [address] [facility] [address] [place] [id number] Care Team Providers Care Admissions Manager Rn Name Role Phone Roxanna Moreno MD Primary Care Provider + Reason for Visit * Cardiology (Routine) - Closed Specialty Diagnoses / Procedures Referred By Contac t Referred To Contact Cardiology Imaging Diagnoses Chest pain, unspecified type Procedures Echo Exercise Stress Test Only Irish Leigh MD Phone: tel: fax: [facility] Medical [facility] Cardiology [address] [facility] [address] [place] [id number] Phone: tel: fax: Referral ID Status Reason Start Date Expiration Date Visits Re quested Visits Authorized [id number] Closed 05/22/2019 11/30/2020 1 1 Encounter Details Date Type Department Care Team (Latest Contact Info) Description 06/06/2019 3:00 PM CDT Ancillary Procedure [facility] Cardiology [address] [facility] [address] [place] [phone] Chest pain, unspecified type Social History Tobacco Use Types Packs/Day Years Used Date Smoking Tobacco: Never Smokeless Tobacco: Never Alcohol Use Standard Drinks/Week Comments Yes 0 (1 standard drink = 0.6 oz pur e alcohol) Sex and Gender Information Value Date Recorded Sex Assigned at Not on file Legal Sex Male 1:57 AM INDUSTRIAL PROPERTY APPRAISER Gender Identity Male 06/20/2021 2:35 PM INDUSTRIAL PROPERTY APPRAISER Sexual Orientation Straight 06/20/2021 2: 35 PM INDUSTRIAL PROPERTY APPRAISER documented as of this encounter Plan of Treatment Not on file documented as of this encounter Procedures Procedure Name Priority Date/Time Associated Diagnosis Comments STRESS ECHO EXERCISE WO DOPPLER/CF WO CONTRAST Routine 06/06/2019 4:01 PM CDT Chest pain, unspecified type documented in this encounter Results * STRESS ECHO EXERCISE WO DOPPLER/CF WO CONTRAST (06/06/2019 4:01 PM CDT) Anatomical Region Laterality Modality Ultrasound 06/06/2019 2:56 PM CDT Narrative 06/06/2019 5:09 PM CDT [facility] [address] [facility] [address], [place] [address] [address] [facility] [address], [place] [address] P:[phone] P:[phone] Echocardiographic Report Patient Name: JUAN PRO : 1980 Study Date: 06/06/2019 2:56:33 PM Gender: M Tech: Location: [place] Ref.Provider: ASHOK Height(Cm): 180 BSA: 2.39 Weight(Kg): 121.57 Heart Rate: 65 BP: 1308/84 Quality: Good Order Provider: Irish LEIGH Procedures: Stress Echo Report: Treadmill stress echocardiogram. Indications: Chest Pain, Medications: Sertaline, HCTZ, Irbesartan, Duloxetine, and Stress test monitored by: Jaciel Middleton RN. Findings: Stress Echo: Protocol - Jero Protocol. Exercise Time - 9.49 min. Baseline Heart Rate - 65. Peak Heart Rate - 158. Predicted Maximal Heart Rate - 180. 85% MPHR - 153. Baseline BP - 130/84. Peak BP - 178/94. Rate Pressure Product - 50475. METS Achieved - 10.10. Percent Predicted Maximal HR Achieved - 88 %. Interpretation Site: Exam was interpreted at [facility]. Performance: Average exercise functional capacity. Hemodynamic Response: Normal blood pressure response. Arrhythmia: No exercise induced arrhythmias. Termination: Limiting Dyspnea. Resting ECG: Normal EKG. Exercise ECG: Normal exercise ECG. Resting LV Function: Normal left ventricular size, normal systolic function, normal wall thickness with no segmental wall motion abnormalities at rest. Post Stress LV Function: Post exercise left ventricular global systolic contractility is hyperdynamic, no segmental wall motion abnormalities, and chamber size is smaller. Conclusions: Protocol - Jero Protocol. Exercise Time - 9.49 min. Baseline Heart Rate - 65. Peak Heart Rate - 158. Predicted Maximal Heart Rate - 180. 85% MPHR - 153. Baseline BP - 130/84. Peak BP - 178/94. Rate Pressure Product - 46410. METS Achieved - 10.10. Percent Predicted Maximal [...] for inducible ischemia at MPHR: 88 %. Electronically Signed By: Guillermo Campo MD, [facility] 2019-06-06 17:09:43 CDT Procedure Note Guillermo Campo MD - 06/06/2019 [facility] [facility] [address] [address] [address] [facility] [address] [place], [place] [address] P:[phone] P:[phone] Echocardiographic Report Patient Name: JUAN PRO : 1980 Study Date: 06/06/2019 2:56:33 PM Gender: M Tech: Location[place] Ref.Provider: ASHOK Height(Cm): 180 BSA: 2.39 Weight(Kg): 121.57 Heart Rate: 65 BP: 1308/84 Quality: Good Order Provider: Irish LEIGH Procedures: Stress Echo Report: Treadmill stress echocardiogram. Indications: Chest Pain, Medications: Sertaline, HCTZ, Irbesartan, Duloxetine, andStress test monitored by: Jaciel Middleton RN. Findings: Stress Echo: Protocol - Jero Protocol. Exercise Time - 9.49 min. Baseline Heart Rate -65. Peak Heart Rate - 158. Predicted Maximal Heart Rate - 180. 85% MPHR - 153. BaselineBP - 130/84. Peak BP - 178/94. Rate Pressure Product - 36089. METS Achieved - 10.10.Percent Predicted Maximal HR Achieved - 88 %. Interpretation Site: Exam was interpreted at [facility]. Performance: Average exercise functional capacity. Hemodynamic Response: Normal blood pressure response. Arrhythmia: No exercise induced arrhythmias. Termination: Limiting Dyspnea. Resting ECG: Normal EKG. Exercise ECG: Normal exercise ECG. Resting LV Function: Normal left ventricular size, normal systolic function, normal wallthickness with no segmental wall motion abnormalities at rest. Post Stress LV Function: Post exercise left ventricular global systolic contractility ishyperdynamic, no segmental wall motion abnormalities, and chamber size is smaller. Conclusions: Protocol - Jero Protocol. Exercise Time - 9.49 min. Baseline Heart Rate -65. Peak Heart Rate - 158. Predicted Maximal Heart Rate - 180. 85% MPHR - 153. BaselineBP - 130/84. Peak BP - 178/94. Rate Pressure Product - 35494. METS Achieved - 10.10.Percent Predicted Maximal HR Achieved - 88 %. Normal EKG. Normal exercise ECG. Normal left ventricular size, normal systolic function, normal wallthickness with no segmental wall motion abnormalities at rest. Post exercise left ventricular global systolic contractility ishyperdynamic, no segmental wall motion abnormalities, and chamber size is smaller. Stress echocardiogram negative for inducible ischemia at MPHR: 88 %. Electronically Signed By: Guillermo Campo MD, [facility] 2019-06-06 17:09:43 CDT [facility] Artis Leigh MD CV ECHO PROCEDURES Final Result documented in this encounter Visit Diagnoses Diagnosis Chest pain, unspecified type documented in this encounter Orders Medications Ordered That Eyad ht Not Have Been Administered Count Last Ordered Date First Ordered Date perflutren lipid (DEFINITY) 1.5 mL in sodium chloride 0.9% 10 mL syringe 2 06/06/2019 documented in this encounter Care Teams Admissions Manager Rn Relationship Specialty Start Date End Date Roxanna Moreno MD PCP - General 10/21/16 documented as of this encounter
--- OUTSIDE RECORDS SUMMARY | 2024-08-03 14:57 | XMS_ITS | Encounter Summary ---
Author Organization [facility] Address [address] [place] [address] Phone Care Team Providers Care Video Presentation Operator Name Role Phone Roxanna Moreno MD Primary Care Provider + Encounter Details Date Type Department Care Team (Late st Contact Info) Description 10/18/2019 Telephone [facility] Neurosurgery [address] [facility] [address] 6th [place] [address] [place] [phone] Grecia La BChristinaAChristina Social History Tobacco Use Types Packs/Day Years Used Date Smoking Tobacco: Never Smokeless Tobacco: Never Alcohol Use Standard Drinks/Week Comments Yes 0 (1 standard drink = 0.6 oz pur e alcohol) Sex and Gender Information Value Date Recorded Sex Assigned at Not on file Legal Sex Male 1:57 AM MULTIMEDIA PROGRAMMER Gender Identity Male 06/20/2021 2:35 PM MULTIMEDIA PROGRAMMER Sexual Orientation Straight 06/20/2021 2: 35 PM MULTIMEDIA PROGRAMMER documented as of this encounter Miscellaneous Notes * Telephone Encounter - Isatu Valiente CNA - 11/25/2019 1:39 PM CDT Pt. Called back and scheduled with SERA Mcknight on 01/13. PT. TO BRING CD TO APPT. AND TO ARRIVE 45 MINS. EARLY FOR XRAYS. * Telephone Encounter - Isatu Valiente CNA - 11/25/2019 12:14 PM CDT Cer-Lvm for pt. To call back to schedule f/a INSPECTOR appt. After 01/12. * Telephone Encounter - Holly Garcia NP - 11/22/2019 4:47 PM CDT Ok to schedule with INSPECTOR after 01/12 * Telephone Encounter - Smita Noel BS - 11/22/2019 8:21 AM CDT CER-reg/intake updated, records/CT report are in Media. Would WZR see? He is f/a * Telephone Encounter - Bhumika Martínez - 11/21/2019 4:[address] Cerv dated 11/19/19 filed in chart from [facility]. * Telephone Encounter - Smita Noel BS - 11/21/2019 2:45 PM CDT I spoke with referring office and they stated patient got imaging done on 11/18. They will be faxing it over today. Once rcvd send to f/a for review * Telephone Encounter - Smita Noel BS - 10/25/2019 10:56 AM CDT CER-reg/intake updated, records/old imaging are in Media. CT scan is from 2018. I called and left avm for patient's PCP office to see if patient has had recent scan, if not they will need to order one for him * Telephone Encounter - Smita Noel BS - 10/25/2019 10:44 AM CDT Department of Neurological Surgery at [facility] Spine Intake 10/25/19 Aleksandar Olsen 1980 [id number] Cell [id number] Roxanna Moreno MD Referring physician: PCP Office number: [phone] Office Caller Name: Patient Referred to: Assigned to: Consult: Yes Second Opinion: No Diagnosis: Requested Timeframe: Location (Spinal Area): Cervical Incontinence: No Weakness: Yes -right side (arm and hands) Numbness: Yes -right arm and bicep, thumb and fingers Pain: Yes -constant pain in neck down to shoulder Duration of symptoms: 3 years HT: 5'11 WT: 240lbs BMI: 33.5 Prior spine surgery: Yes- 05/2011 for neurostimulator Physical therapy: Yes- [facility] Injections: Yes- Dr. Crump Are you a current smoker: No Other surgeons seen: Yes -for stimulator (doesn't remember surgeon's name) Litigation: No MVA: No W/C: No Insurance: [facility] Imaging Done: Yes CT- 11/19/2019 Imaging Location: [facility] Does the patient have any metal in their body? Yes -neurostimulator in back Appointment scheduled: PT TO BRING CD AND ARRIVE 45 MINS EARLY * Telephone Encounter - Grecia La B.A. - 10/18/2019 3:18 PM CST Referral uploaded to chart IMEDIA PROGRAMMER documented in this encounter Plan of Treatment Not on file documented as of this encounter Visit Diagnoses Not on filedocumented in this encounter Care Teams Video Presentation Operator Relationship Specialty Start Date End Date Roxanna Moreno MD PCP - General 10/21/16 documented as of this encounter
--- OUTSIDE RECORDS SUMMARY | 2024-08-03 14:57 | XMS_ITS | Encounter Summary ---
Author Organization [facility] Care Team Providers Care Auto Washer Name Role Phone Roxanna Moreno MD Primary Care Provider + Encounter Details Date Type Department Care Team (Latest Contact Info) Description 06/06/2019 Travel Social History Tobacco Use Types Packs/Day Years Used Date Smoking Tobacco: Never Smokeless Tobacco: Never Alcohol Use Standard Drinks/Week Comments Yes 0 (1 standard drink = 0.6 oz pur e alcohol) Sex and Gender Information Value Date Recorded Sex Assigned at Not on file Legal Sex Male 1:57 AM KILN CAR UNLOADER Gender Identity Male 06/20/2021 2:35 PM KILN CAR UNLOADER Sexual Orientation Straight 06/20/2021 2: 35 PM KILN CAR UNLOADER documented as of this encounter Plan of Treatment Not on file documented as of this encounter Visit Diagnoses Not on filedocumented in this encounter Care Teams Auto Washer Relationship Specialty Start Date End Date Roxanna Moreno MD PCP - General 10/21/16 documented as of this encounter
--- OUTSIDE RECORDS SUMMARY | 2024-08-03 14:57 | XMS_ITS | Encounter Summary ---
Author Organization [facility] Address [address] [place] [address] Care Team Providers Care Fire Lookout Name Role Phone Roxanna Moreno MD Primary Care Provider + Reason for Visit * Reason Comments Back Pain Neck Pain Encounter Details Date Type Department Care Team (Latest Contact Info) Description 07/09/2019 7:28 AM ECHOCARDIOGRAPH TECHNICIAN - 07/09/2019 11:59 PM ECHOCARDIOGRAPH TECHNICIAN Hospital Encounter [facility] [address] [facility] 1st [place] [phone] Dayanna Crump MD [address] [place] [address] Myofascial pain (Primary Dx); Other chronic pain Discharge Disposition: Discharge to home or self care Social History Tobacco Use Types Packs/Day Years Used Date Smoking Tobacco: Never Smokeless Tobacco: Never Alcohol Use Standard Drinks/Week Comments Yes 0 (1 standard drink = 0.6 oz pur e alcohol) Sex and Gender Information Value Date Recorded Sex Assigned at Not on file Legal Sex Male 1:57 AM ECHOCARDIOGRAPH TECHNICIAN Gender Identity Male 06/20/2021 2:35 PM ECHOCARDIOGRAPH TECHNICIAN Sexual Orientation Straight 06/20/2021 2: 35 PM ECHOCARDIOGRAPH TECHNICIAN documented as of this encounter Last Filed Vital Signs Vital Sign Reading Time Taken Comments Blood Pressure 138/59 07/09/2019 7:33 AM ECHOCARDIOGRAPH TECHNICIAN Pulse 67 07/09/2019 7:33 AM ECHOCARDIOGRAPH TECHNICIAN Temperature 36.7 ??C (98 ??F) 07/09/2019 7:33 AM ECHOCARDIOGRAPH TECHNICIAN Respiratory Rate 14 07/09/2019 7:33 AM ECHOCARDIOGRAPH TECHNICIAN Oxygen Saturation 97% 07/09/2019 7:33 AM ECHOCARDIOGRAPH TECHNICIAN Inhaled Oxygen Concentration - - Weight - - Height - - Body Mass Index - - documented in this encounter Discharge Instructions * Patient Instructions* Sharonda Munson RN - 07/09/2019 7:30 AM ECHOCARDIOGRAPH TECHNICIAN Follow up in 4-8 weeks for right intercostal nerve block CARDIOGRAPH TECHNICIAN documented in this encounter Medications at Time of Discharge irbesartan (AVAPRO) 300 mg tabletIndication s:hypertension Take 1 tablet (300 mg total) by mouth every morning 3 01/18/2018 TENS units (TENS 502) device TENS unit with 2-4 electrodes 1 Device 12/13/[address] (CYMBALTA) 60 mg capsule TAKE 1 CAPSULE(60 MG) BY MOUTH DAILY 30 capsule 2 06/25/2019 0 gabapentin (NEURONTIN) 600 mg tablet Take 600 mg by mouth 3 (three) times a day. One and half tablets 03/03/2016 0 hydroCHLOROthiaz jamaica (HYDRODIURIL) 25 mg tabletIndication s:hypertension Take 25 mg by mouth every morning 2 01/18/2018 2 documented as of this encounter Discharge Disposition Disposition Code Departure Means Destination Discharge to home or self care documented in this encounter Progress Notes * Dayanna Crump MD - 07/09/2019 7:30 AM CST Progress Note Patient Name: Aleksandar Olsen : 1980 Today's Date: 07/09/2019 PCP: Roxanna Moreno MD Referring: No ref. provider found SUBJECTIVE Chief complaint of Chief Complaint Patient presents with ??? Back Pain ??? Neck Pain Interval History: Today 07/09/19 Patient is here for trigger point injections. He describes the pain is a continuous sharp, shooting, burning, numb, tender, miserable pain. The pain on average is 6/10 and ranges between 5/10 and 7/10. The pain is worse with activity and better at rest. Although the thoracic paraspinal muscle trigger points have been helpful, the trapezius muscle injections were not as beneficial last time this procedure was performed. Previously, he had a right intercostal nerve block with Patient's Medications New Prescriptions No medications on file Previous Medications DULOXETINE DR (CYMBALTA) 60 MG CAPSULE TAKE [...] fever. Respiratory: Negative for shortness of breath. Cardiovascular: Right Chest wall pain Musculoskeletal: Positive for back pain, myalgias and neck pain. OBJECTIVE Vitals: 24hr Min/Max: @FLOWSTAT(6,8,5,9,10:24::1)@ Most Recent : Vitals BP 138/59 Pulse 67 Temp 98 ??F (36.7 ??C) Resp 14 SpO2 97% Physical Exam: Physical Exam Constitutional: Appearance: He is well-developed. HENT: Head: Normocephalic. Neck: Musculoskeletal: Neck supple. Pulmonary: Effort: Pulmonary effort is normal. Musculoskeletal: Comments: There is lower cervical paraspinal muscle tenderness Skin: General: Skin is dry. Neurological: Mental Status: He is alert and oriented to person, place, and time. Labs/Radiology/Diagnostic Review: No recent results to review No orders of the defined types were placed in this encounter. ASSESSMENT Mr. Aleksandar Olsen is a 38 y.o. male who presents with Problem List Items Addressed This Visit Nervous Other chronic pain Myofascial pain - Primary PLAN: 1. ??Intervention: Trigger point injections today. ?? Will repeat Right T7, T8, T9 intercostals today in 4-8 weeks 2. ??Medications: ?a. Opioids: ??none indicated at this time. ?b. Adjuvants: No changes today:??continue gabapentin 900 TID, lidocaine cream, [id number] mg daily. He also uses TENS unit with benefit He has discontinued Baclofen 10mg TID as he did not notice any benefit ?? - Continue Medtronic SCS use for back and right chest pain. Pt uses high frequency setting intermittently. ?? 3. ??Imaging: Previously had a CT cervical spine at [facility] and images were previously reviewed. Report scanned media at, date 08/10/2018 ?? 4. ??Referral: ??Continue PT/HEP ?? 5. ??Follow-up: for right intercostal nerve block 07/09/2019 7:42 AM ?? CARDIOGRAPH TECHNICIAN documented in this encounter Miscellaneous Notes * Op Note - Dayanna Crump MD - 07/09/2019 7:30 AM CST Patient ID Patient Name: Aleksandar Olsen : 1980 DOS: 07/09/2019 PCP: Roxanna Moreno MD Surgeon SURGEON: Dayanna Crump MD VERTICAL BORING MILL OPERATOR SURGEON: None Diagnosis: Chronic Pain and Myofascial Pain NAME OF PROCEDURE: Trigger Point [...] Resident involved on case Dayanna Crump MD 07/09/2019 8:08 AM CARDIOGRAPH TECHNICIAN * Addendum Note - Eliz Acosta RT - 07/09/2019 7:30 AM CSTEncounter addended by: RT Jenaro on: 07/09/2019 8:46 AM Actions taken: Charge Capture section accepted, Procedure log completed CARDIOGRAPH TECHNICIAN documented in this encounter Plan of Treatment Not on file documented as of this encounter Visit Diagnoses Diagnosis Myofascial pain- Primary Unspecified myalgia and myositis Other chronic pain documented in this encounter Care Teams Fire Lookout Relationship Specialty Start Date End Date Roxanna Moreno MD PCP - General 10/21/16 documented as of this encounter
--- OUTSIDE RECORDS SUMMARY | 2024-08-03 14:57 | XMS_ITS | Encounter Summary ---
Author Organization [facility] Facility Care Team Providers Care Account Manager Name Role Phone Roxanna Moreno MD Primary Care Provider + Encounter Details Date Type Department Care Team (Latest Contact Info) Description 10/22/2019 Travel Social History Tobacco Use Types Packs/Day Years Used Date Smoking Tobacco: Never Smokeless Tobacco: Never Alcohol Use Standard Drinks/Week Comments Yes 0 (1 standard drink = 0.6 oz pur e alcohol) Sex and Gender Information Value Date Recorded Sex Assigned at Not on file Legal Sex Male 1:57 AM STONE FABRICATOR Gender Identity Male 06/20/2021 2:35 PM STONE FABRICATOR Sexual Orientation Straight 06/20/2021 2: 35 PM STONE FABRICATOR documented as of this encounter Plan of Treatment Not on file documented as of this encounter Visit Diagnoses Not on filedocumented in this encounter Care Teams Account Manager Relationship Specialty Start Date End Date Roxanna Moreno MD PCP - General 10/21/16 documented as of this encounter
--- OUTSIDE RECORDS SUMMARY | 2024-08-03 14:57 | XMS_ITS | Encounter Summary ---
Author Organization [facility] Healthcare Address [address] [place] [address] Care Team Providers Care Exhibit Builder Name Role Phone Roxanna Moreno MD Primary Care Provider + Reason for Visit * Reason Comments Neck Pain Encounter Details Date Type Department Care Team (Latest Contact Info) Description 03/22/2019 7:24 AM CDT - 03/22/2019 11:59 PM CDT Hospital Encounter [facility] [address] [facility] 1st [place] [id number] Dayanna Crump MD [address] [facility] [address] [place] [address] Myofascial pain (Primary Dx) Discharge Disposition: Discharge to home or self care Social History Tobacco Use Types Packs/Day Years Used Date Smoking Tobacco: Never Smokeless Tobacco: Never Alcohol Use Standard Drinks/Week Comments Yes 0 (1 standard drink = 0.6 oz pur e alcohol) Sex and Gender Information Value Date Recorded Sex Assigned at Not on file Legal Sex Male 1:57 AM CHLORINATOR OPERATOR Gender Identity Male 06/20/2021 2:35 PM CHLORINATOR OPERATOR Sexual Orientation Straight 06/20/2021 2: 35 PM CHLORINATOR OPERATOR documented as of this encounter Last Filed Vital Signs Vital Sign Reading Time Taken Comments Blood Pressure 123/87 03/22/2019 7:31 AM CDT Pulse 75 03/22/2019 7:31 AM CDT Temperature 36.8 ??C (98.2 ??F) 03/22/2019 7:31 AM CD T Respiratory Rate 15 03/22/2019 7:31 AM CDT Oxygen Saturation 95% 03/22/2019 7:31 AM CDT Inhaled Oxygen Concentration - - Weight 122.5 kg (270 lb) 03/22/2019 7:31 AM CDT Height 180.3 cm (5' 11 ) 03/22/2019 7:31 AM CDT Body Mass Index 37.66 03/22/2019 7:31 AM CDT documented in this encounter Discharge Instructions * Discharge Instructions* Tina Giraldo RN - 03/22/2019 8:04 AM CDT ??? May shower today. No swimming pools, hot tubs, bathtubs or soaking for 24 hours. ??? May use ice packs at injection sites for comfort, but no heat for 24 hours. ??? Activity as tolerated today. May return to normal activities tomorrow. Follow up with Dr. Crump in 4-8 weeks for next intercostal injection. Remember to bring a bottom hoop driver. documented in this encounter Medications at Time of Discharge irbesartan (AVAPRO) 300 mg tabletIndication s:hypertension Take 1 tablet (300 mg total) by mouth every morning 3 01/18/2018 TENS units (TENS 502) device TENS unit with 2-4 electrodes 1 Device 12/13/[address] (CYMBALTA) 60 mg capsule TAKE 1 CAPSULE(60 MG) BY MOUTH DAILY 30 capsule 2 03/20/2019 9 gabapentin (NEURONTIN) 600 mg tablet Take 600 mg by mouth 3 (three) times a day. One and half tablets 03/03/2016 0 hydroCHLOROthiaz jamaica (HYDRODIURIL) 25 mg tabletIndication s:hypertension Take 25 mg by mouth every morning 2 01/18/2018 2 documented as of this encounter Discharge Disposition Disposition Code Departure Means Destination Discharge to home or self care documented in this encounter Progress Notes * Won Crook MD - 03/22/2019 7:24 AM CDT Progress Note Patient Name: Aleksandar Olsen : 1980 Today's Date: 03/22/2019 PCP: Roxanna Moreno MD Referring: No ref. provider found SUBJECTIVE Chief complaint of Chief Complaint Patient presents with ??? Neck Pain Interval History: Today 03/22/19 Patient has done well with his intercostal nerve injections. He is here for cervical/thoracic trigger point injections. However, on Monday, he was turning his neck when he felt a deep pressure and then pain and some numbness radiating down the lateral aspect of his arm and first three digits. He denies and weakness or bowel incontinence. Patient's Medications New Prescriptions No medications on file Previous Medications DULOXETINE DR (CYMBALTA) 60 MG CAPSULE TAKE 1 CAPSULE(60 MG) BY MOUTH DAILY Authorizing Provider: Madina Husain NP Notes: -- GABAPENTIN (NEURONTIN) 600 MG TABLET Take 600 mg by mouth 3 (three) times a day. One and half tablets Authorizing Provider: Historical MD Aletha Notes: -- HYDROCHLOROTHIAZIDE (HYDRODIURIL) 25 MG TABLET Take 25 mg by mouth daily. Authorizing Provider: Historical MD Aletha Notes: -- IRBESARTAN (AVAPRO) 300 MG TABLET Take 300 mg by mouth daily. Authorizing Provider: Historical MD Aletha Notes: -- TENS UNITS (TENS 502) DEVICE [...] Min/Max: @FLOWSTAT(6,8,5,9,10:24::1)@ Most Recent : Vitals BP 123/87 Pulse 75 Temp 98.2 ??F (36.8 ??C) Resp 15 Ht 180.3 cm (5' 11 ) Wt 122.5 kg (270 lb) SpO2 95% BMI 37.66 kg/m?? Physical Exam: Physical Exam Constitutional: He is oriented to person, place, and time. He appears well-developed. HENT: Head: Normocephalic. Eyes: EOM are normal. Neck: Neck supple. Pulmonary/Chest: Effort normal. Neurological: He is alert and oriented to person, place, and time. Skin: Skin is dry. Psychiatric: He has a normal mood and affect. No Ball's sign. Good tone. Intact strength in bilateral UE. Labs/Radiology/Diagnostic Review: No recent results to review No orders of the defined types were placed in this encounter. ASSESSMENT Mr. Aleksandar Olsen is a 38 y.o. male who presents with Problem List Items Addressed This Visit None PLAN: 1. ??Intervention: ?? Repeat TPI today. Consider CEST at next visit if patient's presumed radiculopathy does not improve good as discussed with the patient, there is no significant spinal or foraminal stenosis on his MRI 2. ??Medications: ?a. Opioids: ??none indicated at this time. ?b. Adjuvants: No changes today:??continue gabapentin 900 TID, lidocaine cream, [id number] mg daily. He also uses TENS unit with benefit ?? - Continue Medtronic SCS use for back and right chest pain. Pt uses high frequency setting intermittently. ?? 3. ??Imaging: Previously had a CT cervical spine at [facility] and images were previously reviewed. Report scanned media at, date 08/10/2018. Mild cervical stenosis. ?? 4. ??Referral: ??Continue PT/HEP ?? 5. ??Follow-up: For intercostal nerve block Won Crook MD 03/22/2019 7:58 AM ?? documented in this encounter Procedure Notes * Won Crook MD - 03/22/2019 8:15 AM CDT Patient ID Patient Name: Aleksandar Olsen : 1980 DOS: 03/22/2019 PCP: Roxanna Moreno MD Surgeon SURGEON: Dayanna Crump MD GIFTED TEACHER SURGEON: Won Crook MD Diagnosis: Chronic Pain, Myofascial Pain, Neck Pain, Low back pain and Muscle Spasm NAME OF PROCEDURE: Trigger Point Injections PRE-PROCEDURE [...] muscle groups: 2 INJECTION SITES: Splenius Capititis: [x] Right [] Left Splenius Cervices: [x] Right [] Left Masseter: [] Right [] [...] the entire procedure (including opening and closing). Won Crook MD 03/22/2019 8:15 AM Cosigned by Dayanna Crump MD at 03/22/2019 1:11 PM CDT Associated attestation - Dayanna Crump MD - 03/22/2019 1:11 PM CDT I was present for the entire procedure. documented in this encounter Plan of Treatment Not on file documented as of this encounter Visit Diagnoses Diagnosis Myofascial pain- Primary Unspecified myalgia and myositis documented in this encounter Administered Medications Inactive Administered Medications - up to 3 most recent administrations Medication Order MAR Action Action Date Dose Rate Site bupivacaine (MARCAINE) 0.25 % (2.5 mg/mL) preservative free injection As needed, Starting on Mon03/22/19 at 0804, Intra-Op Given 03/22/2019 8:04 AM CDT 6 mL documented in this encounter Care Teams Exhibit Builder Relationship Specialty Start Date End Date Roxanna Moreno MD PCP - General 10/21/16 documented as of this encounter
--- OUTSIDE RECORDS SUMMARY | 2024-08-03 14:57 | XMS_ITS | Encounter Summary ---
Author Organization [facility] Care Team Providers Care Director Of Restaurant Operations Name Role Phone Roxanna Moreno MD Primary Care Provider + Encounter Details Date Type Department Care Team (Latest Contact Info) Description 08/27/2019 Travel Social History Tobacco Use Types Packs/Day Years Used Date Smoking Tobacco: Never Smokeless Tobacco: Never Alcohol Use Standard Drinks/Week Comments Yes 0 (1 standard drink = 0.6 oz pur e alcohol) Sex and Gender Information Value Date Recorded Sex Assigned at Not on file Legal Sex Male 1:57 AM OPTICS TECHNICAL OFFICER Gender Identity Male 06/20/2021 2:35 PM OPTICS TECHNICAL OFFICER Sexual Orientation Straight 06/20/2021 2: 35 PM OPTICS TECHNICAL OFFICER documented as of this encounter Plan of Treatment Not on file documented as of this encounter Visit Diagnoses Not on filedocumented in this encounter Care Teams Director Of Restaurant Operations Relationship Specialty Start Date End Date Roxanna Moreno MD PCP - General 10/21/16 documented as of this encounter
--- OUTSIDE RECORDS SUMMARY | 2024-08-03 14:57 | XMS_ITS | Encounter Summary ---
Author Organization [facility] Healthcare Address [address] [place] [address] Care Team Providers Care Adolescent Medicine Specialist Name Role Phone Roxanna Moreno MD Primary Care Provider + Dayanna Crump MD Unavailable [phone] Reason for Visit * Reason Onset Date Comments Pre-Surgical Call 04/17/2019 Encounter Details Date Type Department Care Team (Late st Contact Info) Description 04/17/[address] [place] [address] Joyce Briseno RN Pre-Surgical Call Social History Tobacco Use Types Packs/Day Years Used Date Smoking Tobacco: Never Smokeless Tobacco: Never Alcohol Use Standard Drinks/Week Comments Yes 0 (1 standard drink = 0.6 oz pur e alcohol) Sex and Gender Information Value Date Recorded Sex Assigned at Not on file Legal Sex Male 1:57 AM HOPPER FEEDER Gender Identity Male 06/20/2021 2:35 PM HOPPER FEEDER Sexual Orientation Straight 06/20/2021 2: 35 PM HOPPER FEEDER documented as of this encounter Plan of Treatment Not on file documented as of this encounter Visit Diagnoses Not on filedocumented in this encounter Care Teams Adolescent Medicine Specialist Relationship Specialty Start Date End Date Roxanna Moreno MD PCP - General 10/21/16 Dayanna Crump MD Consulting Physician Pain Management 01/30/23 documented as of this encounter
--- OUTSIDE RECORDS SUMMARY | 2024-08-03 14:57 | XMS_ITS | Encounter Summary ---
Author Organization [facility] Healthcare Address [address] [place] [address] Care Team Providers Care House Piping Inspector Name Role Phone Roxanna Moreno MD Primary Care Provider + Reason for Visit * Reason Comments Back Pain Chest Pain Encounter Details Date Type Department Care Team (Latest Contact Info) Description 04/19/2019 8:33 AM CDT - 04/19/2019 11:59 PM CDT Hospital Encounter [facility] [address] [facility] 1st [place] [id number] Dayanna Crump MD [address] [facility] [address] [place] [address] Intercostal neuralgia (Primary Dx); Myofascial pain Discharge Disposition: Discharge to home or self care Social History Tobacco Use Types Packs/Day Years Used Date Smoking Tobacco: Never Smokeless Tobacco: Never Alcohol Use Standard Drinks/Week Comments Yes 0 (1 standard drink = 0.6 oz pur e alcohol) Sex and Gender Information Value Date Recorded Sex Assigned at Not on file Legal Sex Male 1:57 AM ISSUING OPERATOR Gender Identity Male 06/20/2021 2:35 PM ISSUING OPERATOR Sexual Orientation Straight 06/20/2021 2: 35 PM ISSUING OPERATOR documented as of this encounter Last Filed Vital Signs Vital Sign Reading Time Taken Comments Blood Pressure 150/84 04/19/2019 9:27 AM CDT Pulse 85 04/19/2019 9:27 AM CDT Temperature 36.4 ??C (97.6 ??F) 04/19/2019 8:40 AM CD T Respiratory Rate 16 04/19/2019 9:27 AM CDT Oxygen Saturation 97% 04/19/2019 9:27 AM CDT Inhaled Oxygen Concentration - - Weight 121.6 kg (268 lb) 04/19/2019 8:40 AM CDT Height - - Body Mass Index 37.38 03/22/2019 7:31 AM CDT documented in this encounter Discharge Instructions * Discharge Instructions* Sharonda Munson RN - 04/19/2019 9:29 AM CDT Please see attached post-procedure sheet: Intercostal Nerve Block ??? May shower today. No swimming pools, hot tubs, bathtubs or soaking for 24 hours. ??? Activity as tolerated today. May return to normal activities tomorrow. ??? No driving today. May return to driving tomorrow. Follow up in 2 months for Trigger Point Injections documented in this encounter Medications at Time [...] H&P Notes * Dayanna Crump MD - 04/19/2019 8:52 AM CDT I have reviewed the note above and find the patient an acceptable candidate for a right T7, T8, T9 intercostal nerve block Source Note - Won Crook MD - 03/22/2019 7:24 AM [...] changes today:??continue gabapentin 900 TID, lidocaine cream, [id number] mg daily. He also uses TENS unit with benefit ?? - Continue Medtronic SCS use for back and right chest pain. Pt uses high frequency setting intermittently. ?? 3. ??Imaging: Previously had a CT cervical spine at [place] and images were previously reviewed. Report scanned media at, date 08/10/2018. Mild cervical stenosis. ?? 4. ??Referral: ??Continue PT/HEP ?? 5. ??Follow-up: For intercostal nerve block oWn Crook MD 03/22/2019 7:58 AM ?? documented in this encounter Miscellaneous Notes * Addendum Note - Charbel Brandt, RT - 04/19/2019 10:04 AM CDTEncounter addended by: RT Estee on: 04/19/2019 10:04 AM Actions taken: Charge Capture section accepted, Procedure log completed * Addendum Note - Shaornda Munson RN - 04/19/2019 9:30 AM CDTEncounter addended by: Sharonda Munson RN on: 04/19/2019 9:30 AM Actions taken: SmartForm saved, Visit Navigator SmartForm Flowsheet section accepted, Visit Navigator Flowsheet section accepted, Edited Discharge Instructions * Op Note - Dayanna Crump MD - 04/19/2019 9:24 AM CDT Patient ID Patient Name: Aleksandar Olsen : 1980 DOS: 04/19/2019 PCP: Roxanna Moreno MD Surgeon SURGEON: Dayanna Crump MD MEDIA MANAGER SURGEON: None Procedures NAME OF PROCEDURE: Intercostal nerve block at Right T7, T8 and T9, under Fluoroscopy. PRE-PROCEDURE DIAGNOSES: Other Chronic Pain and Intercostal Neuralgia. POST-PROCEDURE DIAGNOSES: same INDICATION FOR PROCEDURE: right intercostal neuralgia INFORMED CONSTENT: After reviewing the [...] Radiographic contrast (Omnipaque 300) was injected (volume 0.2 ml.) There was spread of contrast along the inferior aspect of the rib. 3ml of a mixture of 0.25% bupivacine with depomedrol 40 mg was injected, resulting in dispersion of the previously injected contrast. The above procedure was repeated at right T7, T8 and T9 The procedure was well tolerated, and there were no apparent complications. Dr. Crupm was present and participated in the entire procedure. DISPOSITION: Patient was discharged home instable condition. Operative Findings: None Estimated Blood Loss: None Intraoperative Fluids: None Specimens: None Blood/Blood Products Transfused: None No Resident involved on case Dayanna Crump MD 04/19/2019 9:24 AM documented in this encounter Plan of [...] preservative free injection As needed, Starting on Mon04/19/19 at 0920, Intra-Op Given 04/19/2019 9:20 AM CDT 7 mL iohexol (OMNIPAQUE) 300 mg iodine/mL injection solution As needed, Starting on Mon04/19/19 at 0920, Intra-Op Given 04/19/2019 9:20 AM CDT 1 mL lidocaine PF (XYLOCAINE) 10 mg/mL (1 %) preservative free injection As needed, Starting on Mon04/19/19 at 0916, Intra-Op Given 04/19/2019 9:16 AM CDT 5 mL methylPREDNISolone acetate (DEPO-medrol) injection As needed, Starting on Mon04/19/19 at 0920, Intra-Op Given 04/19/2019 9:20 AM CDT 80 mg documented in this encounter Care Teams House Piping Inspector Relationship Specialty Start Date End Date Roxanna Moreno MD PCP - General 10/21/16 documented as of this encounter
--- OUTSIDE RECORDS SUMMARY | 2024-08-03 14:57 | XMS_ITS | Encounter Summary ---
Author Organization [facility] Healthcare Address [address] [place] [address] Care Team Providers Care Consumer Loan Specialist Name Role Phone Roxanna Moreno MD Primary Care Provider + Reason for Visit * Diagnostic Imaging (Routine) - Closed Specialty Diagnoses / Procedures Referred By Contmarsha t Referred To Contact Diagnoses Mid back pain Procedures FL Fluoro Guided Needle Placement Dayanna Crump MD Phone: tel: fax: [address] [address] Referral ID Status Reason Start Date Expiration Date Visits Re quested Visits Authorized [id number] Closed 08/19/2019 02/27/2021 1 1 Encounter Details Date Type Department Care Team (Late st Contact Info) Description 08/27/2019 7:35 AM DUCTFIXING PLUMBER Ancillary Procedure [facility] at [address] [address] Dayanna Crump MD [address] [place] [address] Mid back pain Social History Tobacco Use Types Packs/Day Years Used Date Smoking Tobacco: Never Smokeless Tobacco: Never Alcohol Use Standard Drinks/Week Comments Yes 0 (1 standard drink = 0.6 oz pur e alcohol) Sex and Gender Information Value Date Recorded Sex Assigned at Not on file Legal Sex Male 1:57 AM DUCTFIXING PLUMBER Gender Identity Male 06/20/2021 2:35 PM DUCTFIXING PLUMBER Sexual Orientation Straight 06/20/2021 2: 35 PM DUCTFIXING PLUMBER documented as of this encounter Plan of Treatment Not on file documented as of this encounter Procedures Procedure Name Priority Date/Time Associated Diagnosis Comments FLUORO GUIDED NEEDLE PLACEMENT Schedule Routine, Read Routine (OP Routine) 08/27/2019 8:33 AM DUCTFIXING PLUMBER Mid back pain documented in this encounter Results * FL Fluoro Guided Needle Placement (08/27/2019 8:33 AM DUCTFIXING PLUMBER) Narrative [facility] - 08/27/2019 8:33 AM DUCTFIXING PLUMBER The images from this study are not interpreted by Radiology. ??Please refer to the physician's procedure / OR operative note. us Dayanna Crump MD IMG FLUOROSCOPY [employer] Final Result [facility] documented in this encounter Visit Diagnoses Diagnosis Mid back pain documented in this encounter Care Teams Consumer Loan Specialist Relationship Specialty Start Date End Date Roxanna Moreno MD PCP - General 10/21/16 documented as of this encounter
--- OUTSIDE RECORDS SUMMARY | 2024-08-03 14:57 | XMS_ITS | Encounter Summary ---
Author Organization [facility] Address [address] [place] [address] Phone Care Team Providers Care Warp Tying Machine Knotter Name Role Phone Roxanna Moreno MD Primary Care Provider + Reason for Referral * Consultation (Routine) - Closed Specialty Diagnoses / Procedures Referred By Rayne t Referred To Contact Orthopedic Surgery Diagnoses Bilateral carpal tunnel syndrome Roxanna Valdez NP [address] [place] [address] Phone: tel: fax: [facility] (All Locations) Referral ID Status Reason Start Date Expiration Date V isits Requested Visits Authorized [id number] Closed Specialty Services Required 01/14/2020 07/25/2021 1 1 Question Answer Please select the performing region: [facility] (All Locations) [[id number]] To provider: ANAIS JHA [[id number]] # of visits: 1 Comments I would like to refer this patient for bilateral carpal tunnel evaluation and treatment Recent EMG/nerve conduction in the system Please contact patient for an appointment Encounter Details Date Type Department Care Team (Late st Contact Info) Description 01/14/2020 3:00 PM CDT Office Visit [facility] [address] [facility] [address] [place] [phone] Roxanna Valdez NP [address] [place] [address] Cervical spondylosis (Primary Dx); Bilateral carpal tunnel syndrome Social History Tobacco Use Types Packs/Day Years Used Date Smoking Tobacco: Never Smokeless Tobacco: Former Quit: 05/2011 Tobacco Cessation:Counseling Given: No Alcohol Use Standard Drinks/Week Comments Yes 0 (1 standard drink = 0.6 oz pur e alcohol) Sex and Gender Information Value Date Recorded Sex Assigned at Not on file Legal Sex Male 1:57 AM POOL SERVICER Gender Identity Male 06/20/2021 2:35 PM POOL SERVICER Sexual Orientation Straight 06/20/2021 2: 35 PM POOL SERVICER documented as of this encounter Last Filed Vital Signs Vital Sign Reading Time Taken Comments Blood Pressure 144/89 01/14/2020 2:38 PM CDT Pulse 76 01/14/2020 2:38 PM CDT Temperature - - Respiratory Rate - - Oxygen Saturation - - Inhaled Oxygen Concentration - - Weight 114.8 kg (253 lb) 01/14/2020 2:38 PM CDT Height 180.3 cm (5' 11 ) 01/14/2020 2:38 PM CDT Body Mass Index 35.29 01/14/2020 2:38 PM CDT documented in this encounter Progress Notes * Roxanna Valdez, SERA - 01/14/2020 3:00 PM CDT January 14, 2020 Aleksandar Olsen is a 39 y.o. male Neck pain, numbness down to hands Patient Active Problem List Diagnosis ??? Other chronic pain ??? Intercostal neuralgia ??? Myofascial pain ??? Back pain ??? Neck pain ??? Arthritis ??? Cervical radiculopathy ??? Effusion of joint of multiple sites ??? Encounter for preventive health examination ??? Inguinal pain ??? Visual impairment No Known Allergies Current Outpatient Medications: ??? atorvastatin (LIPITOR) 20 mg tablet, TK 1 T PO QD, Disp: , Rfl: ??? DULoxetine DR (CYMBALTA) 60 mg capsule, TAKE 1 CAPSULE(60 MG) BY MOUTH DAILY, Disp: 30 capsule,Rfl: 1 ??? hydroCHLOROthiazide (HYDRODIURIL) 25 mg tablet, Take 25 mg by mouth daily., Disp: , Rfl: 2 ??? irbesartan (AVAPRO) 300 mg tablet, Take 300 mg by mouth daily., Disp: , Rfl: 3 ??? lidocaine (XYLOCAINE) 5 % ointment, BENNIE EXT AA 1 TO 4 TIMES QD PRN, Disp: , Rfl: ??? sertraline (ZOLOFT) 50 mg tablet, TK 1 T PO QD, Disp: , Rfl: ??? TENS units (TENS 502) device, TENS unit with 2-4 electrodes, Disp: 1 Device, Rfl: 0 ??? gabapentin (NEURONTIN) 600 mg tablet, Take 600 mg by mouth 3 (three) times a day. One and half tablets, Disp: , Rfl: Current Facility-Administered Medications: ??? perflutren lipid (DEFINITY) 1.5 mL in sodium chloride 0.9% 10 mL syringe, 1- 10 mL, intravenous,Once in imaging, Provider Scanning Past Medical History: Diagnosis Date ??? Anxiety ??? Back pain ??? HX OTHER MEDICAL Osteoid Ostcoma ??? Hyperlipidemia ??? Hypertension ??? Neck pain ??? Personal history of other diseases of the circulatory system History of hypertension - (Added by TW Conv) Past Surgical History: Procedure Laterality Date ??? ANTERIOR CRUCIATE LIGAMENT REPAIR ACL Reconstruction ??? BACK SURGERY Back Surgery - T9 Tumor excision. 2006. (Added by TW Conv) ??? KNEE SURGERY Knee Surgery - Right knee lateral release. 1995. Right Knee ACL Reconstuction. 1996. Right Knee Scope. 2001, 2008. (Added by TW Conv) ??? NERVE BLOCK Nerve Block - (Added by TW Conv) ??? OTHER SURGICAL HISTORY Rt Shoulder Dislocation surgery ??? OTHER SURGICAL HISTORY Rt knee Lateral release ??? OTHER SURGICAL HISTORY Arthoscopy procedures ??? OTHER SURGICAL HISTORY T9 vertebrae tumor excision ??? SHOULDER SURGERY Shoulder Surgery - Right shoulder reconstruction. 1993. (Added by TW Conv) ??? SPINAL CORD STIMULATOR IMPLANT Spinal Surgery Neurostimulator Implants - 2010 (Added by TW Conv) Family History Problem Relation Age of Onset ??? Skin cancer Mother Cancer -skin; ??? Other Mother Kidney Problems; ??? Cancer Mother Family history of malignant neoplasm - (Added by TW Conv) ??? Kidney disease Mother ??? Lung cancer Maternal Grandfather Cancer -lung; ??? Cancer Maternal Grandfather ??? Early Maternal Grandfather ??? Cancer Other Family history of malignant neoplasm - Relation: Grandparent (Added by TW Conv) ??? Hypertension Father Family history of hypertension - (Added by TW Conv) ??? Heart disease Maternal Grandmother Social History Tobacco Use Smoking Status Never Smoker Smokeless Tobacco Former User Social History Substance and Sexual Activity Alcohol Use Yes Objective EXAMINATION: Cervical spine 6 or more views [...] stenosis. Electronically signed by: Lucas Michael M.D. Cervical spine CT scan Mild cervical spondylosis without NF or canal stenosis Normal structure and alignment HPI: I have reviewed the completed spine health history form. New patient referred by PCP for evaluation of cervical spine and possible related symptoms. Patientstates that he started to notice his neck pains since back in 2017 when he was out splitting wood. He states that he recalls waking up with pain in his neck madyson when turning his head side to side. Hehas also notice numbness that radiates down right arm to finger tips. He has a constant neck discomfort madyson off to the right side. At night he notices that his hand symptoms have gotten progressivelyworse, waking him up at night. Patient denies balance/gait issues, no dizziness or bowel/bladder dysfunction. He states that his biophysics teacher feel weak to him and he has been dropping things as well. Patient has tried PT, chiropractor care as well as cervical trigger point injections without much relief. 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 He is unable to obtain a MRI, patient is a non smoker, here with cervical x-rays and CT scan. ROS: Review of Systems Constitutional: Negative. HENT: Negative. Eyes: Negative. Respiratory: Negative. Cardiovascular: Negative. Gastrointestinal: Negative. Endocrine: Negative. Genitourinary: Negative. Musculoskeletal: Positive for arthralgias, back pain, joint swelling, neck pain and neck stiffness. Skin: Negative. Allergic/Immunologic: Negative. Neurological: Negative. Hematological: Negative. Psychiatric/Behavioral: The patient is nervous/anxious. VITAL SIGNS: height is 180.3 cm (5' 11 ) and weight is 114.8 kg (253 lb). His blood pressure is 144/89 and his pulse is 76. Body mass index is 35.29 kg/m??. PHYSICAL EXAM: A comprehensive examination of the spine was performed. The pertinent positive and negative findings are listed below. C Spine Inspection Cervical: normal findings The patients gait is normal. Palpation Tenderness is present. The patient is experiencing tenderness at the right paraspinal and trapezial area. Range of motion The patient has reduced range of motion. The patient has pain with range of motion. Right rotation: moderately limited Left rotation: mildly limited Right strength The patient has 5/5 strength throughout. Left strength The patient has 5/5 strength throughout. Right neurovascular C6: decreased sensation. C7: decreased sensation. C8: decreased sensation. Left neurovascular C6: decreased sensation. C7: decreased sensation. C8: decreased sensation. Right reflexes The patient has normal reflexes on the right side of their body. Ball's reflex: negative Left reflexes The patient has normal reflexes on the left side of their body. Ball's reflex: negative Toe walk: abnormal toe walk Heel walk: abnormal heel walk Spine + Tinels bilateral wrist and right elbow, (+) phalens bilaterally Normal shoulder rotation without pains Maintains pulses in bilateral wrists with arms raised above his head Physical Exam ASSESSMENT: Encounter Diagnoses Name Primary? Cervical spondylosis Yes ??? Bilateral carpal tunnel syndrome PLAN: I have had a long discussion with Aleksandar Olsen regarding their history, findings on physical examination, and the results of imaging studies available for my review. I spent a fair amount of time reviewing patient's imaging with him including cervical x-rays and CT. Based on his subjective complaints and exam, I do not feel that his symptoms are coming directly from his cervical spine. He has an EMG in epic that shows bilateral carpal tunnel syndrome in which Ifeel is a big contributor to his hand symptoms. As far as his ongoing neck pains, it is difficult to say exactly where this is coming from. I would like him to get in with ortho hand, Dr Waite for hand evaluation as well as start physical therapy with traction for his cervical spine. I dont think that a CT myelogram is necessary at this point but is an option in the future if not better. Cervical x-rays and CT in EPIC [place] Copies: Roxanna Moreno MD and Self Referral No address on file SERA Magdaleno NP documented in this encounter Plan of Treatment Scheduled Referrals Name Type Priority Associated Diagnoses Order Schedule Ambulatory referral to Orthopedic Surgery Outpatient Referral Routine Bilateral carpal tunnel syndrome Expected: 01/28/2020 (Approximate), Expires: 01/13/2021 documented as of this encounter Visit Diagnoses Diagnosis Cervical spondylosis- Primary Cervical spondylosis without myelopathy Bilateral carpal tunnel syndrome Carpal tunnel syndrome documented in this encounter Care Teams Warp Tying Machine Knotter Relationship Specialty Start Date End Date Roxanna Moreno MD PCP - General 10/21/16 documented as of this encounter
--- OUTSIDE RECORDS SUMMARY | 2024-08-03 14:57 | XMS_ITS | Encounter Summary ---
Author Organization [facility] Care Team Providers Care Master Plumber Name Role Phone Roxanna Moreno MD Primary Care Provider + Encounter Details Date Type Department Care Team (Latest Contact Info) Description 03/22/2019 Travel Social History Tobacco Use Types Packs/Day Years Used Date Smoking Tobacco: Never Smokeless Tobacco: Never Alcohol Use Standard Drinks/Week Comments Yes 0 (1 standard drink = 0.6 oz pur e alcohol) Sex and Gender Information Value Date Recorded Sex Assigned at Not on file Legal Sex Male 1:57 AM TRACK LAMINATING MACHINE TENDER Gender Identity Male 06/20/2021 2:35 PM TRACK LAMINATING MACHINE TENDER Sexual Orientation Straight 06/20/2021 2: 35 PM TRACK LAMINATING MACHINE TENDER documented as of this encounter Plan of Treatment Not on file documented as of this encounter Visit Diagnoses Not on filedocumented in this encounter Care Teams Master Plumber Relationship Specialty Start Date End Date Roxanna Moreno MD PCP - General 10/21/16 documented as of this encounter
--- OUTSIDE RECORDS SUMMARY | 2024-08-03 14:57 | XMS_ITS | Encounter Summary ---
Author Organization [facility] Address [address] [place] [address] Care Team Providers Care Land Reclamation Specialist Name Role Phone Roxanna Moreno MD Primary Care Provider + Reason for Visit * Diagnostic Imaging (Routine) - Closed Specialty Diagnoses / Procedures Referred By Contac t Referred To Contact Diagnoses Low back pain Procedures [place] Fluoro Guided Needle Placement Dayanna Crump MD Phone: tel: fax: [address] [address] Referral ID Status Reason Start Date Expiration Date Visits Re quested Visits Authorized [id number] Closed 03/13/2019 09/21/2020 1 1 Encounter Details Date Type Department Care Team (Late st Contact Info) Description 04/19/2019 8:45 AM CDT Ancillary Procedure [facility] at [address] [address] Dayanna Crump MD [address] [place] [address] Low back pain Social History Tobacco Use Types Packs/Day Years Used Date Smoking Tobacco: Never Smokeless Tobacco: Never Alcohol Use Standard Drinks/Week Comments Yes 0 (1 standard drink = 0.6 oz pur e alcohol) Sex and Gender Information Value Date Recorded Sex Assigned at Not on file Legal Sex Male 1:57 AM PORCELAIN FINISHER Gender Identity Male 06/20/2021 2:35 PM PORCELAIN FINISHER Sexual Orientation Straight 06/20/2021 2: 35 PM PORCELAIN FINISHER documented as of this encounter Plan of Treatment Not on file documented as of this encounter Procedures Procedure Name Priority Date/Time Associated Diagnosis Comments FLUORO GUIDED NEEDLE PLACEMENT Schedule Routine, Read Routine (OP Routine) 04/19/2019 9:20 AM CDT Low back pain documented in this encounter Results * FL Fluoro Guided Needle Placement (04/19/2019 9:20 AM CDT) Narrative [facility] - 04/19/2019 9:42 AM CDT The images from this study are not interpreted by Radiology. ??Please refer to the physician's procedure / OR operative note. us Dayanna Crump MD IMG FLUOROSCOPY [employer] [facility] Final Result [facility] documented in this encounter Visit Diagnoses Diagnosis Low back pain Lumbago documented in this encounter Care Teams Land Reclamation Specialist Relationship Specialty Start Date End Date Roxanna Moreno MD PCP - General 10/21/16 documented as of this encounter
--- OUTSIDE RECORDS SUMMARY | 2024-08-03 14:57 | XMS_ITS | Encounter Summary ---
Author Organization [facility] Address [address] [place] [address] Phone Care Team Providers Care Client Delivery Manager Name Role Phone Roxanna Moreno MD Primary Care Provider + Encounter Details Date Type Department Care Team (Late st Contact Info) Description 01/08/2020 Telephone [facility] [address] [facility] [address] [place] [address] Roxanna Valdez NP [address] [place] [address] Social History Tobacco Use Types Packs/Day Years Used Date Smoking Tobacco: Never Smokeless Tobacco: Never Alcohol Use Standard Drinks/Week Comments Yes 0 (1 standard drink = 0.6 oz pur e alcohol) Sex and Gender Information Value Date Recorded Sex Assigned at Not on file Legal Sex Male 1:57 AM ELECTRICAL TESTS SUPERVISOR Gender Identity Male 06/20/2021 2:35 PM ELECTRICAL TESTS SUPERVISOR Sexual Orientation Straight 06/20/2021 2: 35 PM ELECTRICAL TESTS SUPERVISOR documented as of this encounter Miscellaneous Notes * Telephone Encounter - Bhumika Lazo - 01/08/2020 1:16 PM CDT Patient confirmed appointment. * Telephone Encounter - Bhumika Lazo - 01/08/2020 12:42 PM CDT LM for patient that appointment time on 01/14/20 at [facility] has changed to 3p.m. with a 2:15p.m. arrival for xrays. Asked that he call to confirm. Also sent a [employer] Message. documented in this encounter Plan of Treatment Not on file documented as of this encounter Visit Diagnoses Not on filedocumented in this encounter Care Teams Client Delivery Manager Relationship Specialty Start Date End Date Roxanna Moreno MD PCP - General 10/21/16 documented as of this encounter
--- OUTSIDE RECORDS SUMMARY | 2024-08-03 14:57 | XMS_ITS | Encounter Summary ---
Author Organization [facility] Healthcare Address [address] [place] [address] Care Team Providers Care Audiologist Name Role Phone Roxanna Moreno MD Primary Care Provider + Reason for Visit * Reason Comments Back Pain Encounter Details Date Type Department Care Team (Latest Contact Info) Description 08/27/2019 7:12 AM PELT SHEARER - 08/27/2019 11:59 PM PELT SHEARER Hospital Encounter [facility] [address] [facility] [address] [place] [phone] Dayanna Crump MD [address] [place], [place] [id number] Other chronic pain (Primary Dx); Intercostal neuralgia Discharge Disposition: Discharge to home or self care Social History Tobacco Use Types Packs/Day Years Used Date Smoking Tobacco: Never Smokeless Tobacco: Never Alcohol Use Standard Drinks/Week Comments Yes 0 (1 standard drink = 0.6 oz pur e alcohol) Sex and Gender Information Value Date Recorded Sex Assigned at Not on file Legal Sex Male 1:57 AM PELT SHEARER Gender Identity Male 06/20/2021 2:35 PM PELT SHEARER Sexual Orientation Straight 06/20/2021 2: 35 PM PELT SHEARER documented as of this encounter Last Filed Vital Signs Vital Sign Reading Time Taken Comments Blood Pressure 141/82 08/27/2019 8:02 AM PELT SHEARER Pulse 64 08/27/2019 8:02 AM PELT SHEARER Temperature 36.4 ??C (97.5 ??F) 08/27/2019 7:29 AM CS T Respiratory Rate 18 08/27/2019 7:54 AM PELT SHEARER Oxygen Saturation 96% 08/27/2019 8:02 AM PELT SHEARER Inhaled Oxygen Concentration - - Weight 118.9 kg (262 lb 3 oz) 08/27/2019 7:29 AM PELT SHEARER Height 180.3 cm (5' 11 ) 08/27/2019 7:29 AM PELT SHEARER Body Mass Index 36.57 08/27/2019 7:29 AM PELT SHEARER documented in this encounter Discharge Instructions * Discharge Instructions* Sondra May RN - 08/27/2019 8:05 AM PELT SHEARER Reviewed post procedure instructions, trigger point injections 4-8 weeks SHEARER documented in this encounter Medications at Time [...] Progress Notes * Dayanna Crump MD - 08/27/2019 7:30 AM CST Progress Note Patient Name: Aleksandar Olsen : 1980 Today's Date: 08/27/2019 PCP: Roxanna Moreno MD Referring: No ref. provider found SUBJECTIVE Chief complaint of Chief Complaint Patient presents with ??? Back Pain Interval History: Today 08/27/18 Patient is here for right intercostal nerve block His pain is described as a sharp, shooting, burning, numb, tender pain. The pain is worse with activity and better with rest. On average is pain is 6/10 ranges between 5/10 and 7/10. Patient's Medications New Prescriptions No medications on file Previous Medications DULOXETINE DR (CYMBALTA) 60 MG CAPSULE TAKE 1 CAPSULE(60 MG) BY MOUTH DAILY Authorizing Provider: Maidna Husain NP Notes: -- GABAPENTIN (NEURONTIN) 600 MG TABLET Take 600 mg by mouth 3 (three) times a day. One and half tablets Authorizing Provider: Fernanda ProviderMD Notes: -- HYDROCHLOROTHIAZIDE (HYDRODIURIL) 25 MG TABLET [...] urinating and dysuria. Musculoskeletal: Positive for back pain and myalgias. Skin: Negative for color change and rash. Allergic/Immunologic: Negative for immunocompromised state. Neurological: Negative for dizziness and light-headedness. Hematological: Negative for adenopathy. Psychiatric/Behavioral: Negative for hallucinations. OBJECTIVE Vitals: 24hr Min/Max: @FLOWSTAT(6,8,5,9,10:24::1)@ Most Recent : Vitals BP 146/84 Pulse 76 Temp 97.5 ??F (36.4 ??C) Resp 17 Ht 180.3 cm (5' 11 ) Wt 118.9 kg (262 lb 3 oz) SpO2 98% BMI 36.57 kg/m?? Physical Exam: Physical Exam Constitutional: Appearance: [...] Addressed This Visit Nervous Other chronic pain - Primary Intercostal neuralgia PLAN: 1. ??Intervention: Right T7, T8, T9 intercostal nerve block today Trigger point injections in 4-8 weeks ?? 2. ??Medications: ?a. Opioids: ??none indicated at this time. ?b. Adjuvants: No changes today:??continue gabapentin 900 TID, lidocaine cream, [id number] mg daily. He also uses TENS unit with benefit He has discontinued Baclofen 10mg TID as he did not notice any benefit ?? - Continue Medtronic SCS use for back and right chest pain. Pt uses high frequency setting intermittently. ?? 3. ??Imaging: Previously had a CT cervical spine at [facility] and images were previously reviewed. Report scanned media at, date 08/10/2018 ?? 4. ??Referral: ??Continue PT/HEP ?? 5. ??Follow-up: for TPI 08/27/2019 7:33 AM ?? SHEARER documented in this encounter Miscellaneous Notes * Op Note - Dayanna Crump MD - 08/27/2019 7:30 AM CST Patient ID Patient Name: Aleksandar Olsen : 1980 DOS: 08/27/2019 PCP: Roxanna Moreno MD Surgeon SURGEON: Dayanna Crump MD FERRYBOAT OPERATOR SURGEON: None Procedures NAME OF PROCEDURE: Intercostal [...] Radiographic contrast (Omnipaque 300) was injected (volume 3 ml.) There was spread of contrast along [...] Resident involved on case Dayanna Crump MD 08/27/2019 8:11 AM SHEARER documented in this encounter Plan of Treatment Not on file documented as of this encounter Visit Diagnoses Diagnosis Other chronic pain- Primary Intercostal neuralgia Other nerve root and plexus disorders documented in this encounter Administered Medications Inactive Administered Medications - up to 3 most recent administrations Medication Order MAR Action Action Date Dose Rate Site bupivacaine (MARCAINE) 0.25 % (2.5 mg/mL) preservative free injection As needed, Starting on Mon08/27/19 at 0755, Intra-Op Given 08/27/2019 7:55 AM PELT SHEARER 7 mL iohexol (OMNIPAQUE) 300 mg iodine/mL injection solution As needed, Starting on Mon08/27/19 at 0755, Intra-Op Given 08/27/2019 7:55 AM PELT SHEARER 1 mL lidocaine PF (XYLOCAINE) 10 mg/mL (1 %) preservative free injection As needed, Starting on Mon08/27/19 at 0754, Intra-Op Given 08/27/2019 7:54 AM PELT SHEARER 5 mL methylPREDNISolone acetate (DEPO-medrol) injection As needed, Starting on Mon08/27/19 at 0755, Intra-Op Given 08/27/2019 7:55 AM PELT SHEARER 80 mg documented in this encounter Care Teams Audiologist Relationship Specialty Start Date End Date Roxanna Moreno MD PCP - General 10/21/16 documented as of this encounter
--- OUTSIDE RECORDS SUMMARY | 2024-08-03 14:57 | XMS_ITS | Encounter Summary ---
Author Organization [facility] Address [address] [place] [address] Phone Care Team Providers Care Manufacturing Coordinator Name Role Phone Roxanna Moreno MD Primary Care Provider + Reason for Referral * Diagnostic Imaging (Routine) - Closed Specialty Diagnoses / Procedures Referred By Contac t Referred To Contact Diagnoses Neck pain Procedures XR Spine Cervical Rtn W Flexion And Extension 6+ View Roxanna Valdez NP [address] [place] [address] Phone: tel: fax: [address] [phone] Referral ID Status Reason Start Date Expiration Date Visits Re quested Visits Authorized [id number] Closed 01/08/2020 07/19/2021 1 1 Encounter Details Date Type Department Care Team (Late st Contact Info) Description 01/08/2020 Orders Only [facility] Neurosurgery [address] [facility] 6th [place] [address] [place] [phone] Roxanna Valdez NP [address] [place] [address] Neck pain (Primary Dx) Social History Tobacco Use Types Packs/Day Years Used Date Smoking Tobacco: Never Smokeless Tobacco: Never Alcohol Use Standard Drinks/Week Comments Yes 0 (1 standard drink = 0.6 oz pur e alcohol) Sex and Gender Information Value Date Recorded Sex Assigned at Not on file Legal Sex Male 1:57 AM FIELD LABORATORY OPERATOR Gender Identity Male 06/20/2021 2:35 PM FIELD LABORATORY OPERATOR Sexual Orientation Straight 06/20/2021 2: 35 PM FIELD LABORATORY OPERATOR documented as of this encounter Progress Notes * Krystle Lora MA - 01/08/2020 1:46 PM CDT c documented in this encounter Plan of Treatment Not on file documented as of this encounter Results * XR Spine Cervical [...] signed by: Lucas Michael M.D. Roxanna Valdez CHIP APPLYING MACHINE TENDER IMG XR PROCEDURES Final Result documented in this encounter Visit Diagnoses Diagnosis Neck pain- Primary Cervicalgia Neck pain Cervicalgia documented in this encounter Care Teams Manufacturing Coordinator Relationship Specialty Start Date End Date Roxanna Moreno MD PCP - General 10/21/16 documented as of this encounter
--- OUTSIDE RECORDS SUMMARY | 2024-08-03 14:57 | XMS_ITS | Encounter Summary ---
Author Organization [facility] Facility Care Team Providers Care Supervisor Paper Machine Name Role Phone Roxanna Moreno MD Primary Care Provider + Encounter Details Date Type Department Care Team (Latest Contact Info) Description 07/09/2019 Travel Social History Tobacco Use Types Packs/Day Years Used Date Smoking Tobacco: Never Smokeless Tobacco: Never Alcohol Use Standard Drinks/Week Comments Yes 0 (1 standard drink = 0.6 oz pur e alcohol) Sex and Gender Information Value Date Recorded Sex Assigned at Not on file Legal Sex Male 1:57 AM AIRCRAFT LIFE SUPPORT FITTER Gender Identity Male 06/20/2021 2:35 PM AIRCRAFT LIFE SUPPORT FITTER Sexual Orientation Straight 06/20/2021 2: 35 PM AIRCRAFT LIFE SUPPORT FITTER documented as of this encounter Plan of Treatment Not on file documented as of this encounter Visit Diagnoses Not on filedocumented in this encounter Care Teams Supervisor Paper Machine Relationship Specialty Start Date End Date Roxanna Moreno MD PCP - General 10/21/16 documented as of this encounter
--- OUTSIDE RECORDS SUMMARY | 2024-08-03 14:57 | XMS_ITS | Encounter Summary ---
Author Organization [facility] Address [address] [place] [address] Care Team Providers Care Hatchery Laborer Name Role Phone Roxanna Moreno MD Primary Care Provider + Reason for Referral * Neurology (Routine) - Closed Specialty Diagnoses / Procedures Referred By Contac t Referred To Contact Neurology Diagnoses Radicular pain in right arm Procedures EMG/NCV -Please select the performing region: [facility] (All Locations); Procedure performed at: [facility] EMG Lab; Clinical Summary: Right-sided radicular pain in the C6, C7 distribution with normal CT cervical spine. Patient cannot hav... Dayanna Crump MD Phone: tel: fax: [facility] Neurological Testing [address] [facility] 6th [place] [address] Phone: tel: fax: Referral ID Status Reason Start Date Expiration Date Visits Re quested Visits Authorized [id number] Closed 09/30/2019 04/10/2021 1 1 D CAPITAL CLERK Reason for Visit * Reason Comments Neck Pain Encounter Details Date Type Department Care Team (Latest Contact Info) Description 09/30/2019 7:45 AM FIXED CAPITAL CLERK - 09/30/2019 11:59 PM FIXED CAPITAL CLERK Hospital Encounter [facility] at [facility] [address] [facility] 1st [place] [phone] Dayanna Crump MD [address] [place] [address] Myofascial pain (Primary Dx); Radicular pain in right arm Discharge Disposition: Discharge to home or self care Social History Tobacco Use Types Packs/Day Years Used Date Smoking Tobacco: Never Smokeless Tobacco: Never Alcohol Use Standard Drinks/Week Comments Yes 0 (1 standard drink = 0.6 oz pur e alcohol) Sex and Gender Information Value Date Recorded Sex Assigned at Not on file Legal Sex Male 1:57 AM FIXED CAPITAL CLERK Gender Identity Male 06/20/2021 2:35 PM FIXED CAPITAL CLERK Sexual Orientation Straight 06/20/2021 2: 35 PM FIXED CAPITAL CLERK documented as of this encounter Last Filed Vital Signs Vital Sign Reading Time Taken Comments Blood Pressure 120/81 09/30/2019 7:53 AM FIXED CAPITAL CLERK Pulse 79 09/30/2019 7:53 AM FIXED CAPITAL CLERK Temperature 37.6 ??C (99.7 ??F) 09/30/2019 7:53 AM CS T Respiratory Rate 14 09/30/2019 7:53 AM FIXED CAPITAL CLERK Oxygen Saturation 98% 09/30/2019 7:53 AM FIXED CAPITAL CLERK Inhaled Oxygen Concentration - - Weight - [...] MG) BY MOUTH DAILY 30 capsule 1 09/27/2019 0 gabapentin (NEURONTIN) 600 mg tablet Take [...] Progress Notes * Dayanna Crump MD - 09/30/2019 8:00 AM CST Progress Note Patient Name: Aleksandar Olsen : 1980 Today's Date: 09/30/2019 PCP: Roxanna Moreno MD Referring: No ref. provider found SUBJECTIVE Chief complaint of Chief Complaint Patient presents with ??? Neck Pain Interval History: Today 09/30/19 Patient is here for TPI. During his last visit he had right intercostal nerve block He has chronic neck and back pain. The pain is described as a continuous miserable, stabbing, shooting, burning, tender, numb pain. On average is pain is 6/10 and ranges between 5/10 and 8/10. Additionally, he continues to complain of right-sided radicular pain in the C6, C7 distribution. CTof the cervical spine was normal. Of note, he cannot have an MRI cervical spine because of the spinal cord stimulator. Patient's Medications New Prescriptions No medications on [...] 4 TIMES QD PRN Authorizing Provider: Fernanda Pompa, MD Notes: -- SERTRALINE (ZOLOFT) 50 MG [...] Min/Max: @FLOWSTAT(6,8,5,9,10:24::1)@ Most Recent : Vitals BP 120/81 Pulse 79 Temp 99.7 ??F (37.6 ??C) Resp 14 SpO2 98% Physical Exam: Physical Exam Constitutional: Appearance: He [...] T7, T8, T9 intercostal nerve block in 2-3 months Trigger point injections in 4-8 weeks ?? 2. ??Medications: ?a. Opioids: ??none indicated at this time. ?b. Adjuvants: No changes today:??continue gabapentin 900 TID, lidocaine cream, [id number] mg daily. He also uses TENS unit with benefit He has discontinued Baclofen 10mg TID as he did not notice any benefit ?? - Continue Medtronic SCS use for back and right chest pain. Pt uses high frequency setting intermittently. ?? 3. ??Imaging: Previously had a CT cervical spine at [facility] and images were previously reviewed. Report scanned media at, date 08/10/2018 Will order an EMG/nerve conduction study for continued right-sided radicular pain to evaluate for peripheral neuropathy including suprascapular nerve entrapment. ?? 4. ??Referral: ??Continue PT/HEP ?? 5. ??Follow-up: Right intercostal nerve block 09/30/2019 8:00 AM ?? D CAPITAL CLERK documented in this encounter Miscellaneous Notes * Op Note - Dayanna Crump MD - 09/30/2019 8:00 AM CST Patient ID Patient Name: Aleksandar Olsen : 1980 DOS: 09/30/2019 PCP: Roxanna Moreno MD Surgeon SURGEON: Dayanna Crump MD BUSINESS ANALYST PROJECT MANAGER SURGEON: None Diagnosis: Chronic Pain and Myofascial [...] Right [] Left Paravertebral, Cerical: [x] Right [] Left Paravertebral, Thoracic: [x] Right [...] Resident involved on case Dayanna Crump MD 09/30/2019 8:17 AM D CAPITAL CLERK documented in this encounter Plan of Treatment Scheduled Orders Name Type Priority Associated Diagnoses Orde r Schedule EMG/NCV -Please select the performing region: [facility] (All Locations); Procedure performed at: [facility] EMG Lab; Clinical Summary: Right-sided radicular pain in the C6, C7 distribution with normal CT cervical spine. Patient cannot hav... Neurology Routine Radicular pain in right arm 1 Occurrences starting 09/30/2019 until 09/30/2020 documented as of this encounter Visit Diagnoses Diagnosis Myofascial pain- Primary Unspecified myalgia and myositis Radicular pain in right arm Unspecified neuralgia, neuritis, and radiculitis documented in this encounter Administered Medications Inactive Administered Medications - up to 3 most recent administrations Medication Order MAR Action Action Date Dose Rate Site bupivacaine (MARCAINE) 0.25 % (2.5 mg/mL) preservative free injection As needed, Starting on Mon09/30/19 at 0819, Intra-Op Given 09/30/2019 8:19 AM FIXED CAPITAL CLERK 3 mL documented in this encounter Historical Medications * This list may reflect changes made after this encounter. sertraline (ZOLOFT) 50 mg tabletIndication s:Anxiety with Depression Take 1 tablet (50 mg total) by mouth every morning 08/28/2019 lidocaine (XYLOCAINE) 5 % ointment Apply topically 2 (two) times a day as needed for pain 08/29/2019 1 atorvastatin (LIPITOR) 20 mg tabletIndication s:hyperlipidemia Take 20 mg by mouth every morning 09/04/2019 2 added in this encounter Care Teams Hatchery Laborer Relationship Specialty Start Date End Date Roxanna Moreno MD PCP - General 10/21/16 documented as of this encounter
--- OUTSIDE RECORDS SUMMARY | 2024-08-03 14:57 | XMS_ITS | Encounter Summary ---
Author Organization [facility]/Health system Facility Care Team Providers Care Heel Wheeler Name Role Phone Roxanna Moreno MD Primary Care Provider + Encounter Details Date Type Department Care Team (Latest Contact Info) Description 01/22/2019 Travel Social History Tobacco Use Types Packs/Day Years Used Date Smoking Tobacco: Never Smokeless Tobacco: Never Alcohol Use Standard Drinks/Week Comments Yes 0 (1 standard drink = 0.6 oz pur e alcohol) Sex and Gender Information Value Date Recorded Sex Assigned at Not on file Legal Sex Male 1:57 AM SPORTS MARKETER Gender Identity Male 06/20/2021 2:35 PM SPORTS MARKETER Sexual Orientation Straight 06/20/2021 2: 35 PM SPORTS MARKETER documented as of this encounter Plan of Treatment Not on file documented as of this encounter Visit Diagnoses Not on filedocumented in this encounter Care Teams Heel Wheeler Relationship Specialty Start Date End Date Roxanna Moreno MD PCP - General 10/21/16 documented as of this encounter
--- OUTSIDE RECORDS SUMMARY | 2024-08-03 14:59 | XMS_ITS | Encounter Summary ---
Author Organization [facility] Healthcare Address [address] [place] [address] Care Team Providers Care Blender Laborer Name Role Phone Roxanna Moreno MD Primary Care Provider + Reason for Visit * Reason Comments Back Pain upper back to neck Encounter Details Date Type Department Care Team (Latest Contact Info) Description 12/13/2018 8:30 AM CDT - 12/13/2018 11:59 PM CDT Hospital Encounter [facility] [address] [facility] 1st [place] [phone] Dayanna Crump MD [address] [facility] [address] [place] [address] Myofascial pain Discharge Disposition: Discharge to home or self care Social History Tobacco Use Types Packs/Day Years Used Date Smoking Tobacco: Never Smokeless Tobacco: Never Alcohol Use Standard Drinks/Week Comments Yes 0 (1 standard drink = 0.6 oz pur e alcohol) Sex and Gender Information Value Date Recorded Sex Assigned at Not on file Legal Sex Male 1:57 AM SALESFORCE CONSULTANT Gender Identity Male 06/20/2021 2:35 PM SALESFORCE CONSULTANT Sexual Orientation Straight 06/20/2021 2: 35 PM SALESFORCE CONSULTANT documented as of this encounter Last Filed Vital Signs Vital Sign Reading Time Taken Comments Blood Pressure 141/83 12/13/2018 8:39 AM CDT Pulse 91 12/13/2018 8:39 AM CDT Temperature 36.7 ??C (98.1 ??F) 12/13/2018 8:39 AM CD T Respiratory Rate 15 12/13/2018 8:39 AM CDT Oxygen Saturation 96% 12/13/2018 8:39 AM CDT Inhaled Oxygen Concentration - - Weight 120.2 kg (265 lb) 12/13/2018 8:39 AM CDT Height 180.3 cm (5' 11 ) 12/13/2018 8:39 AM CDT Body Mass Index 36.96 12/13/2018 8:39 AM CDT documented in this encounter Discharge Instructions * Discharge Instructions* Tina Giraldo RN - 12/13/2018 9:19 AM CDT May use ice pack to injection sites, but no heat for 24 hours. May shower today. No swimming pools, hot tubs, bathtubs or soaking for 24 hours. May return to normal activities tomorrow. Activity as tolerated today. Schedule next appointment with Dr Crump for Intercostal nerve block in 4-6 weeks. Script for Tens unit given documented in this encounter Medications at Time of Discharge irbesartan (AVAPRO) 300 mg tabletIndication s:hypertension Take 1 tablet (300 mg total) by mouth every morning 3 01/18/2018 TENS units (TENS 502) device TENS unit with 2-4 electrodes 1 Device 12/13/2018 baclofen (LIORESAL) 10 mg tablet Take 10 mg by mouth 3 (three) times a day. 12/22/[address] (CYMBALTA) 60 mg capsule Take 1 capsule (60 mg total) by mouth daily. 30 capsule 2 09/10/2018 9 gabapentin (NEURONTIN) 600 mg tablet Take 600 mg by mouth 3 (three) times a day. One and half tablets 03/03/2016 0 hydroCHLOROthiaz jamaica (HYDRODIURIL) 25 mg tabletIndication s:hypertension Take 25 mg by mouth every morning 2 01/18/2018 2 documented as of this encounter Ordered Prescriptions Prescription Sig Dispense Quantity Refills Last Filled Start Date End Date TENS units (TENS 502) device TENS unit with 2-4 electrodes 1 Device 12/13/2018 documented in this encounter Discharge Disposition Disposition Code Departure Means Destination Discharge to home or self care documented in this encounter Progress Notes * Dayanna Crump MD - 12/13/2018 9:21 AM CDT Progress Note Patient Name: Aleksandar Olsen : 1980 Today's Date: 12/13/2018 PCP: Roxanna Moerno MD Referring: No ref. provider found SUBJECTIVE Chief complaint of Chief Complaint Patient presents with ??? Back Pain upper back to neck Interval History: Today 12/13/18 Patient is here today for trigger point injections of the trapezius muscles and right thoracic paraspinal muscles which have been helpful. He continues to poor right-sided shoulder pain that is tender to the touch. He reports radiation into his right upper extremity with associated paresthesias. The pain is worse with rotation of the head. He has had CT of the cervical spine recently which showed mild canal stenosis and mild foraminalstenosis. Describes treatment options for canal or foraminal stenosis such as epidural steroid injec tions. However, given that the MRI findings show mild stenosis and he has responded to trigger point injections we will defer at this time. 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 He has previously had intercostal nerve blocks with significant improvement in his pain. There is no change in the location or character of his pain today. Patient's Medications New Prescriptions TENS UNITS (TENS 502) DEVICE TENS unit with 2-4 electrodes Authorizing Provider: Dayanna Crump MD Notes: -- Previous Medications BACLOFEN (LIORESAL) 10 MG TABLET Take 10 mg by mouth 3 (three) times a day. Authorizing Provider: Fernanda Pompa MD Notes: -- DULOXETINE DR (CYMBALTA) 60 MG CAPSULE Take 1 capsule (60 mg total) by mouth daily. Authorizing Provider: Madina Husain NP Notes: -- [...] mg by mouth daily. Authorizing Provider: Historical Provider, Notes: -- Modified Medications No medications on file Discontinued Medications No medications on file ROS Review of Systems Constitutional: Negative for chills and fever. Respiratory: Negative for shortness of breath. Musculoskeletal: Positive for back pain, myalgias and neck pain. OBJECTIVE Vitals: 24hr Min/Max: @FLOWSTAT(6,8,5,9,10:24::1)@ Most Recent : Vitals BP 141/83 Pulse 91 Temp 98.1 ??F (36.7 ??C) Resp 15 Ht 180.3 cm (5' 11 ) Wt 120.2 kg (265 lb) SpO2 96% BMI 36.96 kg/m?? Physical Exam: Physical Exam Constitutional: He is oriented to person, place, and time. He appears well-developed. HENT: Head: Normocephalic. Eyes: EOM are normal. Neck: Neck supple. Pulmonary/Chest: Effort normal. Neurological: He is alert and oriented to person, place, and time. Skin: Skin is dry. Psychiatric: He has a normal mood and affect. Labs/Radiology/Diagnostic Review: No recent results to review No orders of the defined types were placed in this encounter. ASSESSMENT Mr. Aleksandar Olsen is a 38 y.o. male who presents with Problem List Items Addressed This Visit None PLAN: 1. ??Intervention: ?? TPI today Will repeat Right T7, T8, T9 intercostals in 4-8 weeks 2. ??Medications: ?a. Opioids: ??none indicated at this time. ?b. Adjuvants: No changes today:??continue gabapentin 900 TID, lidocaine cream, Baclofen 10mg QHS to goal of TID, duloxetine 60 mg daily TENS unit ordered ?? - Continue Medtronic SCS use for back and right chest pain. Pt uses high frequency setting intermittently. ?? 3. ??Imaging: Previously had a CT cervical spine at [place] and images were previously reviewed. Report scanned media at, date 08/10/2018 ?? 4. ??Referral: ??Continue PT/HEP ?? 5. ??Follow-up: for intercostal nerve block 15 minutes was spent counseling and coordinating care 12/13/2018 9:22 AM ?? documented in this encounter Miscellaneous Notes * Perioperative Nursing Note - Tina Giraldo RN - 12/13/2018 10:57 AM CDT Pre procedure timeout complete at 09:12 by Benoit Giraldo RN, MD Alexa, and pt. (Unable to place documentation in Timeout section in Epic) * Op Note - Dayanna Crump MD - 12/13/2018 9:46 AM CDT Patient ID Patient Name: Aleksandar Olsen : 1980 DOS: 12/13/2018 PCP: Roxanna Moreno MD Surgeon SURGEON: Dayanna Crump MD METAL TANK BUILDER SURGEON: None Diagnosis: Chronic Pain and Myofascial [...] Mid: [x] Right [] Left Trapezius, Lower: [x] Right [] Left Rhomboids: [] Right [] [...] Resident involved on case Dayanna Crump MD 12/13/2018 9:46 AM documented in this encounter Plan of Treatment Not on file documented as of this encounter Visit Diagnoses Diagnosis Myofascial pain Unspecified myalgia and myositis documented in this encounter Administered Medications Inactive Administered Medications - up to 3 most recent administrations Medication Order MAR Action Action Date Dose Rate Site bupivacaine (MARCAINE) 0.25 % (2.5 mg/mL) preservative free injection As needed, Starting on Alanis 12/13/18 at 0914, Intra-Op Given 12/13/2018 9:14 AM CDT 7 mL documented in this encounter Care Teams Blender Laborer Relationship Specialty Start Date End Date Roxanna Moreno MD PCP - General 10/21/16 documented as of this encounter
--- OUTSIDE RECORDS SUMMARY | 2024-08-03 14:59 | XMS_ITS | Encounter Summary ---
Author Organization [facility] Address [address] [place] [address] Phone Care Team Providers Care Health/Safety Job Titles Name Role Phone Roxanna Moreno MD Primary Care Provider + Encounter Details Date Type Department Care Team (Late st Contact Info) Description 04/09/2018 Telephone [facility] Scheduling [address] [place] [address] Nery Interiano BS Social History Tobacco Use Types Packs/Day Years Used Date Smoking Tobacco: Never Smokeless Tobacco: Never Alcohol Use Standard Drinks/Week Comments Yes 0 (1 standard drink = 0.6 oz pur e alcohol) Sex and Gender Information Value Date Recorded Sex Assigned at Not on file Legal Sex Male 1:57 AM GROOVER AND STRIPER OPERATOR Gender Identity Male 06/20/2021 2:35 PM GROOVER AND STRIPER OPERATOR Sexual Orientation Straight 06/20/2021 2: 35 PM GROOVER AND STRIPER OPERATOR documented as of this encounter Miscellaneous Notes * Telephone Encounter - Nery Interiano BS - 04/17/2018 11:55 AM CDT [facility] to [facility] to make sure they will see. * Telephone Encounter - Cheyanne Rice CNA - 04/13/2018 11:59 AM CDT . * Telephone Encounter - Tina Keita NP - 04/13/2018 8:31 AM CDT Physiatry please * Telephone Encounter - Cheyanne Rice CNA - 04/11/2018 11:22 AM CDT Please see below will you see? CER * Telephone Encounter - Holly Garcia NP - 04/11/2018 9:39 AM CDT See below * Telephone Encounter - Josh Valdes MD - 04/10/2018 8:03 PM CDT FA ARCHITECTURE INTERN or physiatry * Telephone Encounter - Holly Garcia NP - 04/10/2018 1:13 PM CDT Can you review? * Telephone Encounter - Nery Interiano BS - 04/10/2018 12:47 PM CDT Fuel Oil Truck Driver. Reg/intake updated. Records in chart under Media. Can not have MRI. Sending for review ok to schedule? Department of Neurological Surgery at [facility] Spine Intake 04/10/18 Aleksandar Olsen 1980 [id number] Cell HT: 5'11 WT: 260 BMI: 36.26 [id number] Roxanna Moreno MD Referring physician: PCP Caller Name: PATIENT Relationship to Patient:Family Member Referred to: First Available: NA Assigned to: First Available: NA Consult: No Second Opinion: No Diagnosis: Spondylosis, Spondylolithesis Requested Timeframe: NA Location (Spinal Area): Cervical Incontinence: No Weakness: No Numbness: Yes NECK DOWN RIGHT ARM TO FINGERS Pain: Yes NECK Duration of symptoms: 02/2017 Prior spine surgery: SPINAL STIMULATOR tho 2006 Are you a current smoker: No Other surgeons seen: No Physicians name: NA Litigation: No MVA: No W/C: No Western Philosophy Professor: NA Insurance: [facility] CHOICE PLUS Imaging Done: Yes CT: 03/26/2018 CAN NOT HAVE MRI Does the patient have any metal in their body? N/A Comments: NA Appointment scheduled: N/A Appointment Date & Time: . PT TO BRING CD AND ARRIVE 45 MINS EARLY * Telephone Encounter - Aleksandra Mcarthur - 04/09/2018 10:01 AM CDT CER Rcvd CT 03/26/2018 documented in this encounter Plan of Treatment Not on file documented as of this encounter Visit Diagnoses Not on filedocumented in this encounter Care Teams Health/Safety Job Titles Relationship Specialty Start Date End Date Roxanna Moreno MD PCP - General 10/21/16 documented as of this encounter
--- OUTSIDE RECORDS SUMMARY | 2024-08-03 14:59 | XMS_ITS | Encounter Summary ---
Author Organization [facility] Healthcare Address [address] [place] [address] Care Team Providers Care Real Estate Rep Name Role Phone Roxanna Moreno MD Primary Care Provider + Encounter Details Date Type Department Care Team (Late st Contact Info) Description 08/10/2018 9:31 AM GASOLINE ENGINE ASSEMBLER - 08/10/2018 9:46 AM GASOLINE ENGINE ASSEMBLER Surgery [facility] at [facility] [address] 1st [place] [address] Dayanna Crump MD [address] [place] [address] TPI Surgery Details Date/Time Status Location OR Service Patient Class Case Class Case Type Trauma Case? 08/10/2018 9:31 AM Posted [facility] Pain Management Procedure Center Procedure Room 03 Pain Management Outpatient Elective Panel 1 Procedure LRB Anes Op Region Wound Class Comments TPI N/A Surgeon Surgeon Role Service Panel Dayanna Crump MD Primary Pain Managem ent 1 documented in this encounter Social History Tobacco Use Types Packs/Day Years Used Date Smoking Tobacco: Never Smokeless Tobacco: Never Alcohol Use Standard Drinks/Week Comments Yes 0 (1 standard drink = 0.6 oz pur e alcohol) Sex and Gender Information Value Date Recorded Sex Assigned at Not on file Legal Sex Male 1:57 AM GASOLINE ENGINE ASSEMBLER Gender Identity Male 06/20/2021 2:35 PM GASOLINE ENGINE ASSEMBLER Sexual Orientation Straight 06/20/2021 2: 35 PM GASOLINE ENGINE ASSEMBLER documented as of this encounter Discharge Instructions * Discharge Instructions* Sharonda Munson RN - 08/10/2018 10:46 AM GASOLINE ENGINE ASSEMBLER Follow up in 8-10 weeks for Intercostal Nerve Block LINE ENGINE ASSEMBLER documented in this encounter Medications at Time of Discharge irbesartan (AVAPRO) 300 mg tabletIndications :hypertension Take 1 tablet (300 mg total) by mouth every morning 3 01/18/2018 amoxicillin-clavu lanate (AUGMENTIN) 875-125 mg per tablet TK 1 T PO Q 12 H 0 08/08/2018 10/10/2018 baclofen (LIORESAL) 10 mg tablet Take 10 mg by mouth 3 (three) times a day. 12/22/2015 01/22/[address] (CYMBALTA) 60 mg capsule Take 60 mg by mouth daily. 11 01/10/2018 09/10/2018 gabapentin (NEURONTIN) 600 mg tablet Take 600 mg by mouth 3 (three) times a day. One and half tablets 03/03/2016 04/02/2020 hydroCHLOROthiazi de (HYDRODIURIL) 25 mg tabletIndications :hypertension Take 25 mg by mouth every morning 2 01/18/2018 08/23/2021 documented as of this encounter Discharge Disposition Disposition Code Departure Means Destination Discharge to home or self care documented in this encounter H&P Notes * Dayanna Crump MD - 08/10/2018 10:48 AM CST I have reviewed the H&P, examined the patient, and endorse the findings as written. Plan of Care : Based on the above findings, I consider Aleksandar Olsen to be an acceptable risk for: Procedure(s): TPI LINE ENGINE ASSEMBLER Source Note - Dayanna Crump MD - 07/16/2018 11:00 AM GASOLINE ENGINE ASSEMBLER Progress Note Patient Name: Aleksandar Olsen : 1980 Today's Date: 07/16/2018 PCP: Roxanna Moreno MD Referring: No ref. provider found SUBJECTIVE Chief complaint of Chief Complaint Patient presents with ??? Neck Pain Interval History: Today 07/16/18 Patient is here today for neck pain with right sided upper extremity pain that started 1 1/2 year ago after chopping fire wood. The pain was associated with paresthesias which resolved and his radiation has improved but he continues to experience neck pain. The pain is also referred down his back. There is no associated weakness or incontinence. The pain is worse with rotation off the head . Painis better with ice and rest. He received prednisone that helped for one week His current medications for his other pain issues are not helping his neck pain Patient's Medications New Prescriptions No medications on file Previous Medications BACLOFEN (LIORESAL) 10 MG TABLET Take 10 mg by mouth 3 (three) times a day. Authorizing Provider: Fernanda Pompa MD Notes: -- DULOXETINE DR (CYMBALTA) 60 MG CAPSULE Take 60 mg by mouth daily. Authorizing Provider: Fernanda Pompa MD Notes: -- GABAPENTIN (NEURONTIN) 600 MG TABLET [...] Min/Max: @FLOWSTAT(6,8,5,9,10:24::1)@ Most Recent : Vitals BP 140/84 Pulse 71 Temp 98.2 ??F (36.8 ??C) Resp 17 Ht 180.3 cm (5' 11 ) Wt 125.2 kg (276 lb) SpO2 98% BMI 38.49 kg/m?? Physical Exam: Physical Exam Constitutional: He is oriented to person, place, and time. He appears well-developed. HENT: Head: Normocephalic. Eyes: EOM are normal. Neck: Neck supple. Pulmonary/Chest: Effort normal. Musculoskeletal: There is pain with rotation of the head to the left Spurling's test negative bilateral There is left cervical paraspinal tenderness There is spinal tenderness proximal to C6 Neurological: He is alert and oriented to person, place, and time. Bilateral upper extremity strength 5/5 Bilateral upper extremity sensation normal Skin: Skin is dry. Psychiatric: He has a normal mood and affect. Labs/Radiology/Diagnostic Review: No recent results to review No orders of the defined types were placed in this encounter. ASSESSMENT Mr. Aleksandar Olsen is a 37 y.o. male who presents with Problem List Items Addressed This Visit Other chronic pain - Primary Myofascial pain Other Visit Diagnoses Cervicalgia Cervical radiculopathy PLAN: 1. ??Intervention: ?? Repeat TPI next available Will repeat Right T7, T8, T9 intercostals today. Cervical interventions will be revisted after review of his CT neck report ?? 2. ??Medications: ?a. Opioids: ??none indicated at this time. ?b. Adjuvants: No changes today:??continue gabapentin 900 TID, lidocaine cream, Baclofen 10mg QHS to goal of TID, duloxetine 60 mg daily ?? - Continue Medtronic SCS use for back and right chest pain. Pt uses high frequency setting intermittently. ?? 3. ??Imaging: I have personally reviewed his CT cervical spine images ?? 4. ??Referral: ??Continue PT/HEP ?? 5. ??Follow-up: next available for TPI 07/16/2018 12:46 PM ?? LINE ENGINE ASSEMBLER documented in this encounter Miscellaneous Notes * Op Note - Dayanna Crump MD - 08/10/2018 9:31 AM CST Patient ID Patient Name: Aleksandar Olsen : 1980 DOS: 08/10/2018 PCP: Roxanna Moreno MD Surgeon SURGEON: Dayanna Crump MD MINIATURE SET BUILDER SURGEON: None Diagnosis: Chronic Pain and [...] Scalenus: [] Right [] Left Trapezius, Upper: [x] Right [] Left Trapezius, Mid: [x] Right [] Left Trapezius, Lower: [] Right [] Left Rhomboids: [x] Right [] Left Levator Scapulae: [] Right [] Left Pectoralis Minor: [] Right [] Left Pectoralis Major: [] Right [] Left Serratus Anterior: [] Right [] Left Teres Major/Minor: [] Right [] Left Quadrates Lumborum: [] Right [] Left Paravertebral, Cerical: [] Right [] Left Paravertebral, Thoracic: [] Right [] Left Paravertebral, Lumbar: [] Right [...] Resident involved on case Dayanna Crump MD 08/10/2018 10:49 AM LINE ENGINE ASSEMBLER documented in this encounter Plan of Treatment Not on file documented as of this encounter Procedures Procedure Name Priority Date/Time Associated Diagnosis Comments DESTRUCT NERVE MUSCLE NECK [id number] 08/10/2018 5:31 PM GASOLINE ENGINE ASSEMBLER PAIN documented in this encounter Visit Diagnoses Not on filedocumented in this encounter Administered Medications Inactive Administered Medications - up to 3 most recent administrations Medication Order MAR Action Action Date Dose Rate Site bupivacaine (MARCAINE) 0.25 % (2.5 mg/mL) preservative free injection As needed, Starting on Mon08/10/18 at 1045, Intra-Op Given 08/10/2018 10:43 AM GASOLINE ENGINE ASSEMBLER 7 mL documented in this encounter Historical Medications * This list may reflect changes made after this encounter. amoxicillin-clavul anate (AUGMENTIN) 875-125 mg per tablet TK 1 T PO Q 12 H 0 08/08/2018 10/10/2018 added in this encounter Active and Recently Administered Medications Times are shown in GASOLINE ENGINE ASSEMBLER. PRN Medication Order 08/08/2018 08/09/2018 08/10/2018 bupivacaine (MARCAINE) 0.25 % (2.5 mg/mL) preservative free injection (CANCELED) As needed, Starting on Mon08/10/18 at 1045, Intra-Op 1043 (Given - Provid er: Dayanna Crump MD) documented in this encounter Care Teams Real Estate Rep Relationship Specialty Start Date End Date Roxanna Moreno MD PCP - General 10/21/16 documented as of this encounter
--- OUTSIDE RECORDS SUMMARY | 2024-08-03 14:59 | XMS_ITS | Encounter Summary ---
Author Organization [facility] Healthcare Address [address] [place] [address] Care Team Providers Care Bindery Leadperson Name Role Phone Roxanna Moreno MD Primary Care Provider + Encounter Details Date Type Department Care Team (Late st Contact Info) Description 03/12/2018 2:15 PM CDT - 03/12/2018 2:30 PM CDT Surgery [facility] at [facility] [address] 1st [place] [id number] Dayanna Crump MD [address] [place] [address] Injection Trigger Point 3 Muscle [id number] Surgery Details Date/Time Status Location OR Service Patient Class Case Class Case Type Trauma Case? 03/12/2018 2:15 PM Posted [facility] Pain Management Procedure Center Procedure Room 03 Pain Management Outpatient Elective Panel 1 Procedure LRB Anes Op Region Wound Class Comments Injection Trigger Point 3 Muscle [id number] Surgeon Surgeon Role Service Panel Dayanna Crump [...] on file Legal Sex Male 1:57 AM BUSINESS INITIATIVES MANAGER Gender Identity Male 06/20/2021 2:35 PM BUSINESS INITIATIVES MANAGER Sexual Orientation Straight 06/20/2021 2: 35 PM BUSINESS INITIATIVES MANAGER documented as of this encounter Medications at Time of Discharge irbesartan (AVAPRO) 300 mg tabletIndications :hypertension Take 1 tablet (300 mg total) by mouth every morning 3 01/18/2018 baclofen (LIORESAL) 10 mg tablet Take 10 [...] or self care documented in this encounter Miscellaneous Notes * Op Note - Dayanna Crump MD - 03/12/2018 2:15 PM CDT Patient ID Patient Name: Aleksandar Olsen : 1980 DOS: 03/12/2018 PCP: Roxanna Moreno MD Surgeon SURGEON: Dayanna Crump MD BUILDING CUSTODIAN SURGEON: None Diagnosis: Myofascial Pain NAME OF [...] where 1 ml of injectate 0.25% Bupivacaine with 20 mg Depomedrol Total ml injected: 2 ml Total number of muscle groups: 1 INJECTION SITES: Splenius Capititis: [] Right [] [...] Resident involved on case Dayanna Crump MD 03/12/2018 2:36 PM documented in this encounter Plan of Treatment Not on file documented as of this encounter Procedures Procedure Name Priority Date/Time Associated Diagnosis Comments INJECTION TRIGGER POINT 3 MUSCLE [id number] 03/12/2018 2:26 PM CDT pain documented in this encounter Visit Diagnoses Not on filedocumented in this encounter Administered Medications Inactive Administered Medications - up to 3 most recent administrations Medication Order MAR Action Action Date Dose Rate Site bupivacaine (MARCAINE) 0.25 % (2.5 mg/mL) preservative free injection As needed, Starting on Mon03/12/18 at 1426, Intra-Op Given 03/12/2018 2:26 PM CDT 1 mL methylPREDNISolone acetate (DEPO-medrol) injection As needed, Starting on Mon03/12/18 at 1430, Intra-Op Given 03/12/2018 2:26 PM CDT 40 mg documented in this encounter Active and Recently Administered Medications Times are shown in CDT. PRN Medication Order 03/10/2018 03/11/2018 03/12/2018 bupivacaine (MARCAINE) 0.25 % (2.5 mg/mL) preservative free injection (CANCELED) As needed, Starting on Mon03/12/18 at 1426, Intra-Op 1426 (Given - Provid er: Dayanna Crump MD) methylPREDNISolone acetate (DEPO-medrol) injection (CANCELED) As needed, Starting on Mon03/12/18 at 1430, Intra-Op 1426 (Given - Provid er: Dayanna Crump MD) documented in this encounter Care Teams Bindery Leadperson Relationship Specialty Start Date End Date Roxanna Moreno MD PCP - General 10/21/16 documented as of this encounter
--- OUTSIDE RECORDS SUMMARY | 2024-08-03 14:59 | XMS_ITS | Encounter Summary ---
Author Organization [facility] Healthcare Address [address] [place] [address] Care Team Providers Care Glass Sagger Name Role Phone Roxanna Moreno MD Primary Care Provider + Reason for Visit * Reason Comments Back Pain Encounter Details Date Type Department Care Team (Late st Contact Info) Description 03/12/2018 2:20 PM CDT Procedure visit [facility] [address]st [place] [address] Dayanna Crump MD [address] [place] [address] Other chronic pain (Primary Dx); Intercostal neuralgia; Myofascial pain Discharge Disposition: Discharge to home or self care Social History Tobacco Use Types Packs/Day Years Used Date Smoking Tobacco: Never Smokeless Tobacco: Never Alcohol Use Standard Drinks/Week Comments Yes 0 (1 standard drink = 0.6 oz pur e alcohol) Sex and Gender Information Value Date Recorded Sex Assigned at Not on file Legal Sex Male 1:57 AM SPORTS REPORTER Gender Identity Male 06/20/2021 2:35 PM SPORTS REPORTER Sexual Orientation Straight 06/20/2021 2: 35 PM SPORTS REPORTER documented as of this encounter Last Filed Vital Signs Vital Sign Reading Time Taken Comments Blood Pressure 139/93 03/12/2018 2:02 PM CDT Pulse 72 03/12/2018 2:02 PM CDT Temperature 36.7 ??C (98.1 ??F) 03/12/2018 2:02 PM CD T Respiratory Rate 16 03/12/2018 2:02 PM CDT Oxygen Saturation 98% 03/12/2018 2:02 PM CDT Inhaled Oxygen Concentration - - Weight 122.5 kg (270 lb) 03/12/2018 2:02 PM CDT Height 180.3 cm (5' 11 ) 03/12/2018 2:02 PM CDT Body Mass Index 37.66 03/12/2018 2:02 PM CDT documented in this encounter Discharge Disposition Disposition Code Departure Means Destination Discharge to home or self care documented in this encounter Progress Notes * Dayanna Crump MD - 03/12/2018 2:20 PM CDT Progress Note Patient Name: Aleksandar Olsen : 1980 Today's Date: 03/12/2018 PCP: Roxanna Moreno MD Referring: No ref. provider found SUBJECTIVE Chief complaint of Chief Complaint Patient presents with ??? Back Pain Interval History: Patient is here today for scheduled trigger point injections. Her last visit, he had significant intercostal nerve block with significant improvement in pain. Patient's Medications New Prescriptions No medications on [...] for shortness of breath. Musculoskeletal: Positive for myalgias. OBJECTIVE Vitals: 24hr Min/Max: @FLOWSTAT(6,8,5,9,10:24::1)@ Most Recent : Vitals: 03/12/18 1402 BP: 139/93 Pulse: 72 Resp: 16 Temp: 98.1 ??F (36.7 ??C) SpO2: 98% Physical Exam: Physical Exam Constitutional: He is oriented to person, place, and time. He appears well-developed. HENT: Head: Normocephalic. Eyes: EOM are normal. Neck: Neck supple. Pulmonary/Chest: Effort normal. Musculoskeletal: Right thoracic paraspinal tenderness Neurological: He is alert and oriented to [...] This Visit Other chronic pain - Primary Intercostal neuralgia Myofascial pain PLAN: 1. ??Intervention: ??Will repeat Right T7, T8, T9 intercostal in 2-3 months. TPI today ?? 2. ??Medications: ?a. Opioids: ??none indicated at this time. ?b. Adjuvants: ??Continue gabapentin 900 TID, lidocaine cream, Baclofen 10mg QHS to goal of TID, duloxetine 60 mg daily ?? - Continue Medtronic SCS use for back and right chest pain. Pt uses high frequency setting intermittently. ?? 3. ??Imaging:none ?? 4. ??Referral: ??He is participating in PT for the pain ?? 5. ??Follow-up: in 2-3 months for intercostal nerve block ?Dayanna Crump MD 03/12/2018 2:20 PM documented in this encounter Plan of Treatment Not on file documented as of this encounter Visit Diagnoses Diagnosis Other chronic pain- Primary Intercostal neuralgia Other nerve root and plexus disorders Myofascial pain Unspecified myalgia and myositis documented in this encounter Care Teams Glass Sagger Relationship Specialty Start Date End Date Roxanna Moreno MD PCP - General 10/21/16 documented as of this encounter
--- OUTSIDE RECORDS SUMMARY | 2024-08-03 14:59 | XMS_ITS | Encounter Summary ---
Author Organization [facility] Healthcare Address [address] [place] [address] Care Team Providers Care Lawyer Criminal Name Role Phone Roxanna Moreno MD Primary Care Provider + Reason for Visit * Reason Comments Neck Pain Encounter Details Date Type Department Care Team (Late st Contact Info) Description 07/16/2018 11:00 AM BUILDER OPERATOR Office Visit [facility] at [facility] [address] 1st [place] [address] Dayanna Crump MD [address] [place] [address] Other chronic pain (Primary Dx); Cervicalgia; Cervical radiculopathy; Myofascial pain Discharge Disposition: Discharge to home or self care Social History Tobacco Use Types Packs/Day Years Used Date Smoking Tobacco: Never Smokeless Tobacco: Never Alcohol Use Standard Drinks/Week Comments Yes 0 (1 standard drink = 0.6 oz pur e alcohol) Sex and Gender Information Value Date Recorded Sex Assigned at Not on file Legal Sex Male 1:57 AM BUILDER OPERATOR Gender Identity Male 06/20/2021 2:35 PM BUILDER OPERATOR Sexual Orientation Straight 06/20/2021 2: 35 PM BUILDER OPERATOR documented as of this encounter Last Filed Vital Signs Vital Sign Reading Time Taken Comments Blood Pressure 140/84 07/16/2018 11:48 AM BUILDER OPERATOR Pulse 71 07/16/2018 11:48 AM BUILDER OPERATOR Temperature 36.8 ??C (98.2 ??F) 07/16/2018 11:[address] Respiratory Rate 17 07/16/2018 11:48 AM BUILDER OPERATOR Oxygen Saturation 98% 07/16/2018 11:48 AM BUILDER OPERATOR Inhaled Oxygen Concentration - - Weight 125.2 kg (276 lb) 07/16/2018 11:48 AM BUILDER OPERATOR Height 180.3 cm (5' 11 ) 07/16/2018 11:48 AM BUILDER OPERATOR Body Mass Index 38.49 07/16/2018 11:48 AM BUILDER OPERATOR documented in this encounter Patient Instructions * Patient Instructions* Tina Giraldo RN - 07/16/2018 11:00 AM BUILDER OPERATOR Schedule next available appointment with Dr. Crump for Trigger Point Injections. Bring report per Dr. Crump DER OPERATOR documented in this encounter Discharge Disposition Disposition Code Departure Means Destination Discharge to home or self care documented in this encounter Progress Notes * Dayanna Crump MD - 07/16/2018 11:00 AM CST Progress Note Patient Name: Aleksandar [...] 3 (three) times a day. Authorizing Provider: Historical ProviderMD Notes: -- DULOXETINE DR (CYMBALTA) 60 MG CAPSULE Take 60 mg by mouth daily. Authorizing Provider: Historical ProviderMD Notes: -- GABAPENTIN (NEURONTIN) 600 MG TABLET [...] available for TPI 07/16/2018 12:46 PM ?? DER OPERATOR documented in this encounter Plan of Treatment Not on file documented as of this encounter Visit Diagnoses Diagnosis Other chronic pain- Primary Cervicalgia Cervical radiculopathy Brachial neuritis or radiculitis nos Myofascial pain Unspecified myalgia and myositis documented in this encounter Care Teams Lawyer Criminal Relationship Specialty Start Date End Date Roxanna Moreno MD PCP - General 10/21/16 documented as of this encounter
--- OUTSIDE RECORDS SUMMARY | 2024-08-03 14:59 | XMS_ITS | Encounter Summary ---
Author Organization [facility] Healthcare Address [address] [place] [address] Care Team Providers Care Pipe Covering Molder Name Role Phone Roxanna Moreno MD Primary Care Provider + Reason for Visit * Reason Comments Back Pain Encounter Details Date Type Department Care Team (Late st Contact Info) Description 05/17/2018 2:00 PM CDT Procedure visit [facility] [address] 1st [place] [address] Dayanna Crump MD [address] [place] [address] Cervicalgia (Primary Dx); Other chronic pain; Intercostal neuralgia; Myofascial pain Discharge Disposition: Discharge to home or self care Social History Tobacco Use Types Packs/Day Years Used Date Smoking Tobacco: Never Smokeless Tobacco: Never Alcohol Use Standard Drinks/Week Comments Yes 0 (1 standard drink = 0.6 oz pur e alcohol) Sex and Gender Information Value Date Recorded Sex Assigned at Not on file Legal Sex Male 1:57 AM ENTERPRISE SECURITY ARCHITECT Gender Identity Male 06/20/2021 2:35 PM ENTERPRISE SECURITY ARCHITECT Sexual Orientation Straight 06/20/2021 2: 35 PM ENTERPRISE SECURITY ARCHITECT documented as of this encounter Last Filed Vital Signs Vital Sign Reading Time Taken Comments Blood Pressure 143/83 05/17/2018 1:59 PM CDT Pulse 82 05/17/2018 1:59 PM CDT Temperature 36.9 ??C (98.4 ??F) 05/17/2018 1:59 PM CD T Respiratory Rate 16 05/17/2018 1:59 PM CDT Oxygen Saturation 98% 05/17/2018 1:59 PM CDT Inhaled Oxygen Concentration - - Weight - - Height - - Body Mass Index - - documented in this encounter Discharge Disposition Disposition Code Departure Means Destination Discharge to home or self care documented in this encounter Progress Notes * Charbel Cervantes MD - 05/17/2018 2:00 PM CDT Progress Note Patient Name: Aleksandar Olsen : 1980 Today's Date: 05/17/2018 PCP: Roxanna Moreno MD Referring: No ref. provider found SUBJECTIVE Chief complaint of Chief Complaint Patient presents with ??? Back Pain Interval History: Patient is here today for scheduled trigger point injections. Her last visit, he had significant intercostal nerve block with significant improvement in pain. Today, 05/17/18: Pt returns with complaint of mid back pain. Last seen 03/12/18, when he underwent TPI. This providedabout 75% relief of his pain until about a week ago when it gradually returned. Pain feels like that which he has had before, and which has previously responded to intercostal nerve blocks. Pain is sharp, shooting, burning, tender and continuous. It is a 6/10 today. Exacerbated by activity and alleviated with rest. Denies new numbness/paresthesias, new weakness, bowel incontinence, bladder incontinence, fevers/chills, blood thinners. He also reports some neck pain being worked up through ortho and would like to discuss further at another visit. Patient's Medications New Prescriptions No medications on [...] mg by mouth daily. Authorizing Provider: Fernanda Provider, Notes: -- Modified Medications No medications on file Discontinued Medications MELOXICAM (MOBIC) 15 MG TABLET Take one tablet by mouth for 10 days then take one tablet by mouth as needed thereafter Authorizing Provider: Carlos Milligan DO Notes: -- ROS Review of Systems Constitutional: Negative for chills and fever. Respiratory: Negative for shortness of breath. Musculoskeletal: Positive for myalgias. OBJECTIVE Vitals: 24hr Min/Max: @FLOWSTAT(6,8,5,9,10:24::1)@ Most Recent : Vitals BP 143/83 Pulse 82 Temp 98.4 ??F (36.9 ??C) Resp 16 SpO2 98% Physical Exam: Physical Exam Constitutional: He is oriented to person, place, and time. He appears well-developed. HENT: Head: Normocephalic. Eyes: EOM are normal. Neck: Neck supple. Pulmonary/Chest: Effort normal. Musculoskeletal: Right thoracic paraspinal tenderness Neurological: He is alert and oriented to person, place, and time. Skin: Skin is dry. Psychiatric: He has a normal mood and affect. Right rib sensitivity. BLE motor 5/5 and SILT through bilateral medial malleoli Labs/Radiology/Diagnostic Review: No recent results to review No orders of the defined types were placed in this encounter. ASSESSMENT Mr. Aleksandar Olsen is a 37 y.o. male who presents with Problem List Items Addressed This Visit None PLAN: 1. ??Intervention: ??Will repeat Right T7, T8, T9 intercostals today. Repeat TPI PRN ?? 2. ??Medications: ?a. Opioids: ??none indicated at this time. ?b. Adjuvants: No changes today:??continue gabapentin 900 TID, lidocaine cream, Baclofen 10mg QHS to goal of TID, duloxetine 60 mg daily ?? - Continue Medtronic SCS use for back and right chest pain. Pt uses high frequency setting intermittently. ?? 3. ??Imaging:none ?? 4. ??Referral: ??Continue PT/HEP ?? 5. ??Follow-up: in 1-3wks for neck pain discussion/evaluation Charbel Cervantes MD Fellow, Pain Management, Department of Anesthesiology [facility], [facility] 05/17/2018 2:44 PM ?? Cosigned by Dayanna Crump MD at 05/17/2018 5:51 PM CDT Associated attestation - Dayanna Crump MD - 05/17/2018 5:51 PM CDT I have seen and examined the patient. I agree with the findings and plan of care as documented in the resident's note. 15 minutes was spent counseling and coordinating care . 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
--- OUTSIDE RECORDS SUMMARY | 2024-08-03 14:59 | XMS_ITS | Encounter Summary ---
Author Organization [facility] Healthcare Address [address] [place] [address] Care Team Providers Care Roundsman Name Role Phone Roxanna Moreno MD Primary Care Provider + Reason for Visit * Reason Comments Back Pain Chest Pain Neck Pain Encounter Details Date Type Department Care Team (Late st Contact Info) Description 10/10/2018 9:30 AM CHIEF OF SAFETY AND PROTECTION Office Visit [facility] [address] 1st [place] [phone] Dayanna Crump MD [address] [place] [address] Intercostal neuralgia (Primary Dx); Myofascial pain; Other chronic pain Discharge Disposition: Discharge to home or self care Social History Tobacco Use Types Packs/Day Years Used Date Smoking Tobacco: Never Smokeless Tobacco: Never Alcohol Use Standard Drinks/Week Comments Yes 0 (1 standard drink = 0.6 oz pur e alcohol) Sex and Gender Information Value Date Recorded Sex Assigned at Not on file Legal Sex Male 1:57 AM CHIEF OF SAFETY AND PROTECTION Gender Identity Male 06/20/2021 2:35 PM CHIEF OF SAFETY AND PROTECTION Sexual Orientation Straight 06/20/2021 2: 35 PM CHIEF OF SAFETY AND PROTECTION documented as of this encounter Last Filed Vital Signs Vital Sign Reading Time Taken Comments Blood Pressure 133/87 10/10/2018 9:31 AM CHIEF OF SAFETY AND PROTECTION Pulse 83 10/10/2018 9:31 AM CHIEF OF SAFETY AND PROTECTION Temperature 36.8 ??C (98.2 ??F) 10/10/2018 9:31 AM CS T Respiratory Rate 16 10/10/2018 9:31 AM CHIEF OF SAFETY AND PROTECTION Oxygen Saturation 97% 10/10/2018 9:31 AM CHIEF OF SAFETY AND PROTECTION Inhaled Oxygen Concentration - - Weight - - Height - - Body Mass Index - - documented in this encounter Discharge Disposition Disposition Code Departure Means Destination Discharge to home or self care documented in this encounter Progress Notes * Dayanna Crump MD - 10/10/2018 9:30 AM CST Progress Note Patient Name: Aleksandar Olsen : 1980 Today's Date: 10/10/2018 PCP: Roxanna Moreno MD Referring: No ref. provider found SUBJECTIVE Chief complaint of Chief Complaint Patient presents with ??? Back Pain ??? Chest Pain ??? Neck Pain Interval History: Today 07/16/18 patient is here today for right-sided intercostal nerve block. During his last visit he had triggerpoint injections of the trapezius muscles which helped his pain. 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 He has previously had intercostal nerve blocks with significant improvement in his pain. There is no change in the location or character of his pain today. Patient's Medications New Prescriptions No medications on [...] Medications No medications on file Discontinued Medications AMOXICILLIN-CLAVULANATE (AUGMENTIN) 875-125 MG PER TABLET TK 1 T PO Q 12 H Authorizing Provider: Fernanda Pompa MD Notes: -- ROS Review of Systems Constitutional: Negative for chills and fever. Respiratory: Negative for shortness of breath. Musculoskeletal: Positive for back pain and neck pain. OBJECTIVE Vitals: 24hr Min/Max: @FLOWSTAT(6,8,5,9,10:24::1)@ Most Recent : Vitals BP 133/87 Pulse 83 Temp 98.2 ??F (36.8 ??C) Resp 16 SpO2 97% Physical Exam: Physical Exam Constitutional: He is [...] This Visit None PLAN: 1. ??Intervention: ?? Will repeat Right T7, T8, T9 intercostals today. 2. ??Medications: ?a. Opioids: ??none indicated at this time. ?b. Adjuvants: No changes today:??continue gabapentin 900 TID, lidocaine cream, Baclofen 10mg QHS to goal of TID, duloxetine 60 mg daily ?? - Continue Medtronic SCS use for back and right chest pain. Pt uses high frequency setting intermittently. ?? 3. ??Imaging: Previously had a CT cervical spine at [facility] and images were previously reviewed. Report scanned media at, date 08/10/2018 ?? 4. ??Referral: ??Continue PT/HEP ?? 5. ??Follow-up: next available for TPI 15 minutes was spent counseling and coordinating care 10/10/2018 9:39 AM ?? F OF SAFETY AND PROTECTION documented in this encounter Plan of Treatment Not on file documented as of this encounter Visit Diagnoses Diagnosis Intercostal neuralgia- Primary Other nerve root and plexus disorders Myofascial pain Unspecified myalgia and myositis Other chronic pain documented in this encounter Discontinued Medications Medication Sig Discontinue Reason Start Date End Da te amoxicillin-clavulanate (AUGMENTIN) 875-125 mg per tablet TK 1 T PO Q 12 H 08/08/2018 10/10/2018 documented as of this encounter Care Teams Roundsman Relationship Specialty Start Date End Date Roxanna Moreno MD PCP - General 10/21/16 documented as of this encounter
--- OUTSIDE RECORDS SUMMARY | 2024-08-03 14:59 | XMS_ITS | Encounter Summary ---
Author Organization [facility] Healthcare Address [address] [place] [address] Care Team Providers Care Used Car Salesperson Name Role Phone Roxanna Moreno MD Primary Care Provider + Encounter Details Date Type Department Care Team (Latest Contact Info) Description 05/17/2018 1:36 PM CDT - 05/17/2018 3:29 PM CDT Hospital Encounter [facility] [address] [place] [phone] Dayanna Crump MD [address] [place] [address] Discharge Disposition: Discharge to home or self care Social History Tobacco Use Types Packs/Day Years Used Date Smoking Tobacco: Never Smokeless Tobacco: Never Alcohol Use Standard Drinks/Week Comments Yes 0 (1 standard drink = 0.6 oz pur e alcohol) Sex and Gender Information Value Date Recorded Sex Assigned at Not on file Legal Sex Male 1:57 AM VESSEL ORDINARY SEAMAN Gender Identity Male 06/20/2021 2:35 PM VESSEL ORDINARY SEAMAN Sexual Orientation Straight 06/20/2021 2: 35 PM VESSEL ORDINARY SEAMAN documented as of this encounter Last Filed Vital Signs Vital Sign Reading Time Taken Comments Blood Pressure 127/83 05/17/2018 3:20 PM CDT Pulse 61 05/17/2018 3:20 PM CDT Temperature - - Respiratory Rate 12 05/17/2018 3:20 PM CDT Oxygen Saturation 96% 05/17/2018 3:20 PM CDT Inhaled Oxygen Concentration - - Weight - - Height - - Body Mass Index - - documented in this encounter Discharge Instructions * Discharge Instructions* Joyce Briseno RN - 05/17/2018 3:23 PM CDT See pain management discharge instructions for INB May shower today. No swimming pools, hot tubs, bathtubs or soaking for 24 hours. May return to normal activities tomorrow. No driving today. May return to driving tomorrow. Activity as tolerated today. Follow up 1-2 weeks. documented in this encounter Medications at Time [...] encounter Miscellaneous Notes * Op Note - Charbel Cervantes MD - 05/17/2018 1:56 PM CDT Patient ID Patient Name: Aleksandar Olsen : 1980 DOS: 05/17/2018 PCP: Roxanna Moreno MD Surgeon SURGEON: Dayanna Crump MD CONTINUOUS WASHER OPERATOR SURGEON: Charbel Cervantes MD Procedures NAME OF PROCEDURE: Intercostal nerve block at Right T7, T8 and T9, under Fluoroscopy. PRE-PROCEDURE DIAGNOSES: Other Chronic Pain and Intercostal Neuralgia. POST-PROCEDURE DIAGNOSES: same INDICATION FOR PROCEDURE: chronic post thoracotomy pain, intercostal neuralgia, other chronic pain INFORMED CONSTENT: After reviewing the procedure with the patient, informed consent to proceed withthe injection was obtained. A procedural permit was also signed. DESCRIPTION OF PROCEDURE: The patient was placed in the prone position on the fluoroscopy table. Fluoroscopy was used to identify the right T7 level. The lumbar area was prepped with chlorhexidine solution and draped with sterile towels. Sterile technique was used throughout. At the needle entry point for the injection at lumbar level above, the skin and subcutaneous tissues were infiltrated with1% lidocaine. A 22-gauge 3 1/2-inch B - bevel spinal needle was introduced [...] was injected, resulting in dispersion of the previouslyinjected contrast. The above procedure was repeated at right T8 and T9 The procedure was well tolerated, and there were no apparent complications. Dr. Crump was present and participated in the entire procedure. DISPOSITION: Patient was discharged home instable condition. Operative Findings: None Estimated Blood Loss: None Intraoperative Fluids: None Specimens: None Blood/Blood Products Transfused: None Charbel Cervantes MD Fellow, Pain Management, Department of Anesthesiology [facility], [facility] 05/17/2018 3:44 PM Cosigned by Dayanna Crump MD at 05/17/2018 5:52 PM CDT Associated attestation - Dayanna Crump MD - 05/17/2018 5:52 PM CDT I was present for the entire procedure. documented in this encounter Plan of Treatment Not on file documented as of this encounter Procedures Procedure Name Priority Date/Time Associated Diagnosis Comments INJECTION INTERCOSTAL SINGLE [id number] 05/17/2018 2:44 PM CDT pain documented in this encounter Visit Diagnoses Not on filedocumented in this encounter Active and Recently Administered Medications Times are shown in CDT. PRN Medication Order 05/15/2018 05/16/2018 05/17/2018 bupivacaine (MARCAINE) 0.25 % (2.5 mg/mL) preservative free injection (CANCELED) As needed, Starting on Alanis 05/17/18 at 1512, Intra-Op 1512 (Given - Provid er: Charbel Cervantes MD) iohexol (OMNIPAQUE) 300 mg iodine/mL injection solution (CANCELED) As needed, Starting on Alanis 05/17/18 at 1512, Intra-Op 1512 (Given - Provid er: Charbel Cervantes MD) lidocaine PF (XYLOCAINE) 10 mg/mL (1 %) preservative free injection (CANCELED) As needed, Starting on Alanis 05/17/18 at 1504, Intra-Op 1504 (Given - Provid er: Charbel Cervantes MD) methylPREDNISolone acetate (DEPO-medrol) injection (CANCELED) As needed, Starting on Alanis 05/17/18 at 1512, Intra-Op 1512 (Given - Provid er: Charbel Cervantes MD) documented in this encounter Orders Medications Ordered That Eyad ht Not Have Been Administered Count Last Ordered Date First Ordered Date bupivacaine (MARCAINE) 0.25 % (2.5 mg/mL) preservative free injection 1 05/17/2018 iohexol (OMNIPAQUE) 300 mg i odine/mL injection solution 1 05/17/2018 lidocaine PF (XYLOCAINE) 10 mg/mL (1 %) preservative free injection 1 05/17/2018 methylPREDNISolone acetate ( DEPO-medrol) injection 1 05/17/2018 documented in this encounter Care Teams Used Car Salesperson Relationship Specialty Start Date End Date Roxanna Moreno MD PCP - General 10/21/16 documented as of this encounter
--- OUTSIDE RECORDS SUMMARY | 2024-08-03 14:59 | XMS_ITS | Encounter Summary ---
Author Organization [facility] Healthcare Address [address] [place] [address] Care Team Providers Care Floor And Wall Applier Liquid Name Role Phone Roxanna Moreno MD Primary Care Provider + Encounter Details Date Type Department Care Team (Latest Contact Info) Description 03/12/2018 1:50 PM CDT - 03/12/2018 2:34 PM CDT Hospital Encounter [facility] [address] [place] [phone] Dayanna Crump MD [address] [place] [address] Discharge Disposition: Discharge to home or self care Social History Tobacco Use Types Packs/Day Years Used Date Smoking Tobacco: Never Smokeless Tobacco: Never Alcohol Use Standard Drinks/Week Comments Yes 0 (1 standard drink = 0.6 oz pur e alcohol) Sex and Gender Information Value Date Recorded Sex Assigned at Not on file Legal Sex Male 1:57 AM VOCATIONAL REHABILITATION CONSULTANT Gender Identity Male 06/20/2021 2:35 PM VOCATIONAL REHABILITATION CONSULTANT Sexual Orientation Straight 06/20/2021 2: 35 PM VOCATIONAL REHABILITATION CONSULTANT documented as of this encounter Medications at [...] Moreno MD Surgeon SURGEON: Dayanna Crump MD DUST BOX WORKER SURGEON: None Diagnosis: Myofascial Pain NAME OF [...] Diagnosis Comments INJECTION TRIGGER POINT 3 MUSCLE 03/12/2018 2:26 PM CDT pain documented in [...] Dayanna Crump MD) documented in this encounter Orders Medications Ordered That Yead ht Not Have Been Administered Count Last Ordered Date First Ordered Date bupivacaine (MARCAINE) 0.25 % (2.5 mg/mL) preservative free injection 1 03/12/2018 methylPREDNISolone acetate ( DEPO-medrol) injection 1 03/12/2018 documented in this encounter Care Teams Floor And Wall Applier Liquid Relationship Specialty Start Date End Date Roxanna Moreno MD PCP - General 10/21/16 documented as of this encounter
--- OUTSIDE RECORDS SUMMARY | 2024-08-03 14:59 | XMS_ITS | Encounter Summary ---
Author Organization [facility] Facility Care Team Providers Care Corrections Sergeant Name Role Phone Roxanna Moreno MD Primary Care Provider + Encounter Details Date Type Department Care Team (Latest Contact Info) Description 12/13/2018 Travel Social History Tobacco Use Types Packs/Day Years Used Date Smoking Tobacco: Never Smokeless Tobacco: Never Alcohol Use Standard Drinks/Week Comments Yes 0 (1 standard drink = 0.6 oz pur e alcohol) Sex and Gender Information Value Date Recorded Sex Assigned at Not on file Legal Sex Male 1:57 AM NURSING HOME PHYSICIAN Gender Identity Male 06/20/2021 2:35 PM NURSING HOME PHYSICIAN Sexual Orientation Straight 06/20/2021 2: 35 PM NURSING HOME PHYSICIAN documented as of this encounter Plan of Treatment Not on file documented as of this encounter Visit Diagnoses Not on filedocumented in this encounter Care Teams Corrections Sergeant Relationship Specialty Start Date End Date Roxanna Moreno MD PCP - General 10/21/16 documented as of this encounter
--- OUTSIDE RECORDS SUMMARY | 2024-08-03 14:59 | XMS_ITS | Encounter Summary ---
Author Organization [facility] Healthcare Address [address] [place] [address] Care Team Providers Care Historical Records Administrator Name Role Phone Roxanna Moreno MD Primary Care Provider + Reason for Visit * Reason Onset Date Comments pre-call 01/18/2019 Encounter Details Date Type Department Care Team (Late st Contact Info) Description 01/18/[address] [phone] Joyce Briseno, MABLE pre-call Social History Tobacco Use Types Packs/Day Years Used Date Smoking Tobacco: Never Smokeless Tobacco: Never Alcohol Use Standard Drinks/Week Comments Yes 0 (1 standard drink = 0.6 oz pur e alcohol) Sex and Gender Information Value Date Recorded Sex Assigned at Not on file Legal Sex Male 1:57 AM MEDICAL EDITOR Gender Identity Male 06/20/2021 2:35 PM MEDICAL EDITOR Sexual Orientation Straight 06/20/2021 2: 35 PM MEDICAL EDITOR documented as of this encounter Miscellaneous Notes * Telephone Encounter - Joyce Briseno, MABLE - 01/18/2019 10:34 AM CDT LM, arrival time, fire truck driver needed, c/B if on abx. Or blood thinners. Or have had a fever in the last 7 days. documented in this encounter Plan of Treatment Not on file documented as of this encounter Visit Diagnoses Not on filedocumented in this encounter Care Teams Historical Records Administrator Relationship Specialty Start Date End Date Roxanna Moreno MD PCP - General 10/21/16 documented as of this encounter
--- OUTSIDE RECORDS SUMMARY | 2024-08-03 14:59 | XMS_ITS | Encounter Summary ---
Author Organization [facility] Healthcare Address [address] [place] [address] Care Team Providers Care Grill Chef Name Role Phone Roxanna Moreno MD Primary Care Provider + Encounter Details Date Type Department Care Team (Latest Contact Info) Description 08/10/2018 9:29 AM HAUL CANE BRAKEMAN - 08/10/2018 10:48 AM HAUL CANE BRAKEMAN Hospital Encounter [facility] [address] [place] [phone] Dayanna Crump MD [address] [place] [address] Discharge Disposition: Discharge to home or self care Social History Tobacco Use Types Packs/Day Years Used Date Smoking Tobacco: Never Smokeless Tobacco: Never Alcohol Use Standard Drinks/Week Comments Yes 0 (1 standard drink = 0.6 oz pur e alcohol) Sex and Gender Information Value Date Recorded Sex Assigned at Not on file Legal Sex Male 1:57 AM HAUL CANE BRAKEMAN Gender Identity Male 06/20/2021 2:35 PM HAUL CANE BRAKEMAN Sexual Orientation Straight 06/20/2021 2: 35 PM HAUL CANE BRAKEMAN documented as of this encounter Discharge Instructions * Discharge Instructions* Sharonda Munson RN - 08/10/2018 10:46 AM HAUL CANE BRAKEMAN Follow up in 8-10 weeks for Intercostal Nerve Block CANE BRAKEMAN documented in this encounter Medications at Time [...] be an acceptable risk for: Procedure(s): TPI CANE BRAKEMAN Source Note - Dayanna Crump MD - 07/16/2018 11:00 AM HAUL CANE BRAKEMAN Progress Note Patient Name: Aleksandar Olsen : [...] available for TPI 07/16/2018 12:46 PM ?? CANE BRAKEMAN documented in this encounter Miscellaneous Notes * Op Note - Dayanna Crump MD - 08/10/2018 9:31 AM CST Patient ID Patient Name: Aleksandar Olsen : 1980 DOS: 08/10/2018 PCP: Roxanna Moreno MD Surgeon SURGEON: Dayanna Crump MD DENIAL MANAGEMENT REPRESENTATIVE SURGEON: None Diagnosis: Chronic Pain and Myofascial [...] case Dayanna Crump MD 08/10/2018 10:49 AM CANE BRAKEMAN documented in this encounter Plan of Treatment Not on file documented as of this encounter Procedures Procedure Name Priority Date/Time Associated Diagnosis Comments DESTRUCT NERVE MUSCLE NECK [id number] 08/10/2018 5:31 PM HAUL CANE BRAKEMAN PAIN documented in this encounter Visit Diagnoses Not on filedocumented in this encounter Historical Medications * This list may reflect changes made after this encounter. amoxicillin-clavul anate (AUGMENTIN) 875-125 mg per tablet TK 1 T PO Q 12 H 0 08/08/2018 10/10/2018 added in this encounter Active and Recently Administered Medications Times are shown in HAUL CANE BRAKEMAN. PRN Medication Order 08/08/2018 08/09/2018 08/10/2018 bupivacaine (MARCAINE) 0.25 % (2.5 mg/mL) preservative free injection (CANCELED) As needed, Starting on Mon08/10/18 at 1045, Intra-Op 1043 (Given - Provid er: Dayanna Crump MD) documented in this encounter Orders Medications Ordered That Eyad ht Not Have Been Administered Count Last Ordered Date First Ordered Date bupivacaine (MARCAINE) 0.25 % (2.5 mg/mL) preservative free injection 1 08/10/2018 documented in this encounter Care Teams Grill Chef Relationship Specialty Start Date End Date Roxanna Moreno MD PCP - General 10/21/16 documented as of this encounter
--- OUTSIDE RECORDS SUMMARY | 2024-08-03 14:59 | XMS_ITS | Encounter Summary ---
Author Organization [facility] Healthcare Address [address] [place] [address] Care Team Providers Care Senior C Developer Name Role Phone Roxanna Moreno MD Primary Care Provider + Encounter Details Date Type Department Care Team (Late st Contact Info) Description 05/17/2018 1:56 PM CDT - 05/17/2018 2:[address] [facility] [address] [facility] 1st [place] [id number] Dayanna Crump MD [address] [place] [address] Injection Intercostal Single 82606 Surgery Details Date/Time Status Location OR Service Patient Class Case Class Case Type Trauma Case? 05/17/2018 1:56 PM Posted [facility] Pain Management Procedure Center Procedure Room 01 Pain Management Outpatient Elective Panel 1 Procedure LRB Anes Op Region Wound Class Comments Injection Intercostal Single 70526 Right Surgeon Surgeon Role Service Panel Dayanna Crump MD Primary Pain Managem ent 1 Charbel Cervantes MD Fellow Pain Management 1 documented in this encounter Social History Tobacco Use Types Packs/Day Years Used Date Smoking Tobacco: Never Smokeless Tobacco: Never Alcohol Use Standard Drinks/Week Comments Yes 0 (1 standard drink = 0.6 oz pur e alcohol) Sex and Gender Information Value Date Recorded Sex Assigned at Not on file Legal Sex Male 1:57 AM BEAD WIRE INSULATOR Gender Identity Male 06/20/2021 2:35 PM BEAD WIRE INSULATOR Sexual Orientation Straight 06/20/2021 2: 35 PM BEAD WIRE INSULATOR documented as of this encounter Discharge Instructions [...] MD Surgeon SURGEON: Dayanna Crump MD DIRECTOR OF PUBLIC WORKS SURGEON: Charbel Cervantes MD Procedures NAME OF [...] MD Fellow, Pain Management, Department of Anesthesiology [facility], [facility] Pain Management Center 05/17/2018 3:44 PM Cosigned by Dayanna Crump MD at 05/17/2018 5:52 PM CDT Associated attestation - Dayanna Crump MD - 05/17/2018 5:52 PM CDT I was present for the entire procedure. documented in this encounter Plan of Treatment Not on file documented as of this encounter Procedures Procedure Name Priority Date/Time Associated Diagnosis Comments INJECTION INTERCOSTAL SINGLE 36239 05/17/2018 2:44 PM CDT pain documented in this encounter Visit Diagnoses Not on filedocumented in this encounter Administered Medications Inactive Administered Medications - up to 3 most recent administrations Medication Order MAR Action Action Date Dose Rate Site bupivacaine (MARCAINE) 0.25 % (2.5 mg/mL) preservative free injection As needed, Starting on Alanis 05/17/18 at 1512, Intra-Op Given 05/17/2018 3:12 PM CDT 8 mL iohexol (OMNIPAQUE) 300 mg iodine/mL injection solution As needed, Starting on Alanis 05/17/18 at 1512, Intra-Op Given 05/17/2018 3:12 PM CDT 1 mL lidocaine PF (XYLOCAINE) 10 mg/mL (1 %) preservative free injection As needed, Starting on Alanis 05/17/18 at 1504, Intra-Op Given 05/17/2018 3:04 PM CDT 5 mL methylPREDNISolone acetate (DEPO-medrol) injection As needed, Starting on Alanis 05/17/18 at 1512, Intra-Op Given 05/17/2018 3:12 PM CDT 40 mg documented in this [...] Charbel Cervantes MD) documented in this encounter Care Teams Senior C Developer Relationship Specialty Start Date End Date Roxanna Moreno MD PCP - General 10/21/16 documented as of this encounter
--- OUTSIDE RECORDS SUMMARY | 2024-08-03 14:59 | XMS_ITS | Encounter Summary ---
Author Organization [facility] Healthcare Address [address] [place] [address] Care Team Providers Care Soda Fountain Clerk Name Role Phone Roxanna Moreno MD Primary Care Provider + Encounter Details Date Type Department Care Team (Late st Contact Info) Description 10/10/2018 9:35 AM MICROFILM EQUIPMENT INSPECTOR - 10/10/2018 9:50 AM MICROFILM EQUIPMENT INSPECTOR Surgery [facility] [address] [facility] 1st [place] [address] Dayanna Crump MD [address] [place] [address] Injection Intercostal Single 15735 Surgery Details Date/Time Status Location OR Service Patient Class Case Class Case Type Trauma Case? 10/10/2018 9:35 AM Posted [facility] Pain Management Procedure Center Procedure Room 01 Pain Management Outpatient Elective Panel 1 Procedure LRB Anes Op Region Wound Class Comments Injection Intercostal Single 84286 Right Class I - Clean Surgeon Surgeon Role Service Panel Dayanna Crump [...] on file Legal Sex Male 1:57 AM MICROFILM EQUIPMENT INSPECTOR Gender Identity Male 06/20/2021 2:35 PM MICROFILM EQUIPMENT INSPECTOR Sexual Orientation Straight 06/20/2021 2: 35 PM MICROFILM EQUIPMENT INSPECTOR documented as of this encounter Discharge Instructions * Discharge Instructions* Sondra Cabrera RN - 10/10/2018 10:45 AM MICROFILM EQUIPMENT INSPECTOR Please see attached post-procedure sheet. May shower today. No swimming pools, hot tubs, bathtubs or soaking for 24 hours. May return to normal activities tomorrow. No driving today. May return to driving tomorrow. Activity as tolerated today. If you experience any shortness of breath, but go to the Emergency Room. OFILM EQUIPMENT INSPECTOR documented in this encounter Medications at [...] by mouth daily. 30 capsule 2 09/10/2018 12/20/2018 gabapentin (NEURONTIN) 600 mg tablet Take 600 [...] Op Note - Dayanna Crump MD - 10/10/2018 9:35 AM CST Patient ID Patient Name: Aleksandar Olsen : 1980 DOS: 10/10/2018 PCP: Roxanna Moreno MD Surgeon SURGEON: Daynana Crump MD SHOE DESIGNER SURGEON: None Procedures NAME OF PROCEDURE: Intercostal [...] previously injected contrast. The above procedure was performed at right T7, T8 and T9 The procedure was well tolerated, and there were no apparent complications. Dr. Crump was present and participated in the entire procedure. DISPOSITION: Patient was discharged home instable condition. Operative Findings: None Estimated Blood Loss: None Intraoperative Fluids: None Specimens: None Blood/Blood Products Transfused: None No Resident involved on case Dayanna Crump MD 10/10/2018 10:46 AM OFILM EQUIPMENT INSPECTOR documented in this encounter Plan of Treatment Not on file documented as of this encounter Procedures Procedure Name Priority Date/Time Associated Diagnosis Comments INJECTION INTERCOSTAL SINGLE 14905 10/10/2018 10:12 AM MICROFILM EQUIPMENT INSPECTOR PAIN documented in this encounter Visit Diagnoses Not on filedocumented in this encounter Administered Medications Inactive Administered Medications - up to 3 most recent administrations Medication Order MAR Action Action Date Dose Rate Site bupivacaine (MARCAINE) 0.25 % (2.5 mg/mL) preservative free injection As needed, Starting on Mon10/10/18 at 1036, Intra-Op Given 10/10/2018 10:36 AM MICROFILM EQUIPMENT INSPECTOR 8 mL iohexol (OMNIPAQUE) 300 mg iodine/mL injection solution As needed, Starting on Mon10/10/18 at 1036, Intra-Op Given 10/10/2018 10:36 AM MICROFILM EQUIPMENT INSPECTOR 1.5 mL lidocaine PF (XYLOCAINE) 10 mg/mL (1 %) preservative free injection As needed, Starting on Mon10/10/18 at 1036, Intra-Op Given 10/10/2018 10:36 AM MICROFILM EQUIPMENT INSPECTOR 2 mL methylPREDNISolone acetate (DEPO-medrol) injection As needed, Starting on Mon10/10/18 at 1036, Intra-Op Given 10/10/2018 10:36 AM MICROFILM EQUIPMENT INSPECTOR 40 mg documented in this encounter Active and Recently Administered Medications Times are shown in MICROFILM EQUIPMENT INSPECTOR. PRN Medication Order 10/08/2018 10/09/2018 10/10/2018 bupivacaine (MARCAINE) 0.25 % (2.5 mg/mL) preservative free injection (CANCELED) As needed, Starting on Mon10/10/18 at 1036, Intra-Op 1036 (Given - Provid er: Dayanna Crump MD) iohexol (OMNIPAQUE) 300 mg iodine/mL injection solution (CANCELED) As needed, Starting on Mon10/10/18 at 1036, Intra-Op 1036 (Given - Provid er: Dayanna Crump MD) lidocaine PF (XYLOCAINE) 10 mg/mL (1 %) preservative free injection (CANCELED) As needed, Starting on Mon10/10/18 at 1036, Intra-Op 1036 (Given - Provid er: Dayanna Crump MD) methylPREDNISolone acetate (DEPO-medrol) injection (CANCELED) As needed, Starting on Mon10/10/18 at 1036, Intra-Op 1036 (Given - Provid er: Dayanna Crump MD) documented in this encounter Care Teams Soda Fountain Clerk Relationship Specialty Start Date End Date Roxanna Moreno MD PCP - General 10/21/16 documented as of this encounter
--- OUTSIDE RECORDS SUMMARY | 2024-08-03 14:59 | XMS_ITS | Encounter Summary ---
Author Organization [facility] Healthcare Address [address] [place] [address] Care Team Providers Care Tanker Truck Driver Name Role Phone Roxanna Moreno MD Primary Care Provider + Reason for Visit * Diagnostic Imaging (Routine) - Closed Specialty Diagnoses / Procedures Referred By Contac t Referred To Contact Diagnoses Intercostal muscle pain Procedures FL Fluoro Guided Needle Placement Dayanna Curmp MD [address] [place] [address] Phone: tel: fax: [address] [phone] Referral ID Status Reason Start Date Expiration Date Visits Re quested Visits Authorized [id number] Closed 10/10/2018 04/20/2020 1 1 Encounter Details Date Type Department Care Team (Latest Contact Info) Description 10/10/2018 9:45 AM WEATHER ANALYST Ancillary Procedure [facility] at [address] [address] Dayanna Crump MD [address] [place] [address] Intercostal muscle pain Social History Tobacco Use Types Packs/Day Years Used Date Smoking Tobacco: Never Smokeless Tobacco: Never Alcohol Use Standard Drinks/Week Comments Yes 0 (1 standard drink = 0.6 oz pur e alcohol) Sex and Gender Information Value Date Recorded Sex Assigned at Not on file Legal Sex Male 1:57 AM WEATHER ANALYST Gender Identity Male 06/20/2021 2:35 PM WEATHER ANALYST Sexual Orientation Straight 06/20/2021 2: 35 PM WEATHER ANALYST documented as of this encounter Plan of Treatment Not on file documented as of this encounter Procedures Procedure Name Priority Date/Time Associated Diagnosis Comments FLUORO GUIDED NEEDLE PLACEMENT Schedule Routine, Read Routine (OP Routine) 10/10/2018 10:43 AM WEATHER ANALYST Intercostal muscle pain documented in this encounter Results * FL Fluoro Guided Needle Placement (10/10/2018 10:43 AM WEATHER ANALYST) Narrative [facility] - 10/10/2018 10:43 AM WEATHER ANALYST The images from this study are not interpreted by Radiology. ??Please refer to the physician's procedure / OR operative note. us Dayanna Crump MD IMG FLUOROSCOPY PROCE MARILYN Final Result [facility] documented in this encounter Visit Diagnoses Diagnosis Intercostal muscle pain documented in this encounter Care Teams Tanker Truck Driver Relationship Specialty Start Date End Date Roxanna Moreno MD PCP - General 10/21/16 documented as of this encounter
--- OUTSIDE RECORDS SUMMARY | 2024-08-03 14:59 | XMS_ITS | Encounter Summary ---
Author Organization [facility] Healthcare Address [address] [place] [address] Care Team Providers Care Glove Printer Name Role Phone Roxanna Moreno MD Primary Care Provider + Reason for Visit * Diagnostic Imaging (Routine) - Closed Specialty Diagnoses / Procedures Referred By Contac t Referred To Contact Diagnoses Low back pain Procedures FL Fluoro Guided Needle Placement Dayanna Crump MD [address] [place] [address] Phone: tel: fax: [address] [phone] Referral ID Status Reason Start Date Expiration Date Visits Re quested Visits Authorized [id number] Closed 05/15/2018 11/24/2019 1 1 Encounter Details Date Type Department Care Team (Late st Contact Info) Description 05/17/2018 1:45 PM CDT Ancillary Procedure [facility] at [address] [address] Dayanna Crump MD [address] [place] [address] Low back pain Social History Tobacco Use Types Packs/Day Years Used Date Smoking Tobacco: Never Smokeless Tobacco: Never Alcohol Use Standard Drinks/Week Comments Yes 0 (1 standard drink = 0.6 oz pur e alcohol) Sex and Gender Information Value Date Recorded Sex Assigned at Not on file Legal Sex Male 1:57 AM BIG DATA ANALYTICS LEAD Gender Identity Male 06/20/2021 2:35 PM BIG DATA ANALYTICS LEAD Sexual Orientation Straight 06/20/2021 2: 35 PM BIG DATA ANALYTICS LEAD documented as of this encounter Plan of Treatment Not on file documented as of this encounter Procedures Procedure Name Priority Date/Time Associated Diagnosis Comments FLUORO GUIDED NEEDLE PLACEMENT Schedule Routine, Read Routine (OP Routine) 05/17/2018 3:20 PM CDT Low back pain documented in this encounter Results * FL Fluoro Guided Needle Placement (05/17/2018 3:20 PM CDT) Narrative [facility] - 05/17/2018 3:25 PM CDT The images from this study are not interpreted by Radiology. ??Please refer to the physician's procedure / OR operative note. us Dayanna Crump MD IMG FLUOROSCOPY PROCE DURES Final Result [facility] documented in this encounter Visit Diagnoses Diagnosis Low back pain Lumbago documented in this encounter Care Teams Glove Printer Relationship Specialty Start Date End Date Roxanna Moreno MD PCP - General 10/21/16 documented as of this encounter
--- OUTSIDE RECORDS SUMMARY | 2024-08-03 14:59 | XMS_ITS | Encounter Summary ---
Author Organization [facility] Address [address] [place] [address] Phone Care Team Providers Care Fire Extinguisher Technician Name Role Phone Roxanna Moreno MD Primary Care Provider + Encounter Details Date Type Department Care Team (Late st Contact Info) Description 05/07/2018 10:30 AM CDT Office Visit [facility] Orthopaedic Surgery [address] [facility] 2nd [address] [place] [address] Carlos Milligan, DO [address] [facility] [address] [place] [address] Myofascial pain (Primary Dx); Cervical radiculopathy Social History Tobacco Use Types Packs/Day Years Used Date Smoking Tobacco: Never Smokeless Tobacco: Never Alcohol Use Standard Drinks/Week Comments Yes 0 (1 standard drink = 0.6 oz pur e alcohol) Sex and Gender Information Value Date Recorded Sex Assigned at Not on file Legal Sex Male 1:57 AM DRY WALL PLASTERER Gender Identity Male 06/20/2021 2:35 PM DRY WALL PLASTERER Sexual Orientation Straight 06/20/2021 2: 35 PM DRY WALL PLASTERER documented as of this encounter Ordered Prescriptions Prescription Sig Dispense Quantity Refills Last Filled Start Date End Date meloxicam (MOBIC) 15 mg tablet Take one tablet by mouth for 10 days then take one tablet by mouth as needed thereafter 30 tablet 05/07/2018 8 documented in this encounter Progress Notes * Carlos Milligan DO - 05/07/2018 10:30 AM CDT NEW PATIENT VISIT CHIEF COMPLAINT Neck pain HISTORY OF PRESENTING ILLNESS Aleksandar Olsen is a 37 y.o. male who presents for evaluation with neck pain. 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 He has subsequent neuropathic chest wall pain and is followed by a pain proivder at [facility], Dr Lucero Crump MD. He recieves regular TPI's and T7-T9 intercostal nerve blocks for management. He also has a spinal cord sitmulator placed in 2010 and is not able to have an MRI. He presents today with a separate concern. He reports that on February 14 2017, he injured his neck while splitting wood. He noted acute onset neck pain with radiating parestheisas in the RUE. Over time the pain did improve in severity, and his paresthesias in the RUE subsided. He does intermitently experience these parestheisas, but they stop at the lateral shoulder and never radiate into the distal extremtiy. He has discussed this complaint with his pain provider, but has not receivied any specific treatments. His PCP did order imaging, including a CT scan of the cervical spine. He denies any weakness affecting the upper extrmities and denies any imbalance. He is currently maintained on gabapentin 300mg TID, duloxetine 60mg Bid, and baclofen 10mg TID for his thoracic spine pain. Patient recalls relief from his neck pain with a prednisone burst. PAST MEDICAL HISTORY Past Medical History: Diagnosis Date ??? HX OTHER MEDICAL Osteoid Ostcoma ??? Hypertension ??? Personal history of other diseases of the circulatory system History of hypertension - (Added by TW Conv) PAST SURGICAL HISTORY Past Surgical History: Procedure Laterality Date ??? [...] - Right shoulder reconstruction. 1993. (Added by Conv) ??? SPINAL CORD STIMULATOR IMPLANT Spinal Surgery Neurostimulator Implants - 2010 (Added by Conv) MEDICATIONS Current Outpatient Prescriptions Medication Sig Dispense Refill ??? baclofen (LIORESAL) 10 mg tablet Take 10 mg by mouth 3 (three) times a day. ??? DULoxetine DR (CYMBALTA) 60 mg capsule Take 60 mg by mouth daily. 11 ??? gabapentin (NEURONTIN) 600 mg tablet Take 600 mg by mouth 3 (three) times a day. One and half tablets ??? hydroCHLOROthiazide (HYDRODIURIL) 25 mg tablet Take 25 mg by mouth daily. 2 ??? irbesartan (AVAPRO) 300 mg tablet Take 300 mg by mouth daily. 3 ??? meloxicam (MOBIC) 15 mg tablet Take one tablet by mouth for 10 days then take one tablet by mouth as needed thereafter 30 tablet 0 No current facility-administered medications for this visit. ALLERGIES No Known Allergies SOCIAL HISTORY Social History Social History ??? Marital status: Spouse name: N/A ??? Number of children: N/A ??? Years of education: N/A Occupational History ??? Not on file. Social History Main Topics ??? Smoking status: Never Smoker ??? Smokeless tobacco: Never Used ??? Alcohol use Yes ??? Drug use: No ??? Sexual activity: Not on file Other Topics Concern ??? Not on file Social History Narrative : (Added by Conv) No alcohol use : (Added by Conv) FAMILY HISTORY Family History Problem Relation Age of Onset ??? Skin cancer Mother Cancer -skin; ??? Other Mother Kidney Problems; ??? Cancer Mother Family history of malignant neoplasm - (Added by TW Conv) ??? Lung cancer Maternal Grandfather Cancer -lung; ??? Cancer Other Family history of malignant neoplasm - Relation: Grandparent (Added by TW Conv) ??? Hypertension Father Family history of hypertension - (Added by TW Conv) REVIEW OF SYSTEMS Complete review of systems was performed and was negative except for those items stated in the History of Presenting Illness and Past Medical/Surgical History. PHYSICAL EXAMINATION GENERAL: Patient appears in no apparent distress. Alert and oriented x 3. Pleasant and cooperative. PSYCHIATRIC: Mood is euthymic. Affect is appropriate. EYES: Anicteric sclera. Moist conjunctiva. Extraocular movements appear intact. RESPIRATORY: There is equal chest rise on inspection. Breathing is non-labored with no use of accessory muscles. No audible wheezing. CARDIOVASCULAR: Distal radial pulses are 3+ and symmetric in the bilateral upper extremities. SKIN: No obvious skin lesions or rashes are noted. Skin is normal temperature to touch. NEUROLOGIC/MUSCULOSKELETAL: Inspection: No shoulder girdle or peripheral upper extremity atrophy appreciated. Pronated shoulders with poor seated posture. Gait: Nonantalgic gait pattern, no deviations appreciated. ROM: Full ROM with cervical extension / flexion (non-painful). Limited left sidebending and right rotation 2/2 pain. Achieves 170 degrees of shoulder abduction / flexion. No scapular winging appreciated. Palpation: TTP over the left cervical paraspinal musculature at C6-C7 with referral. TTP over the left levator scapulae and upper trapezius. Motor: 5/5 with bilateral finger flexion, finger abduction, wrist extension, elbow flexion, and elbow extension. Sensory: Decreased to LT in the right C7 and C8 dermatomes. Intact through remaining dermatomes. Reflexes: 2+ DTR at the bilateral brachioradialis, biceps, and triceps tendons. Special Tests: Positive median neural tension. Negative Spurling maneuver. Positive major-kennedyand apprehension test on the right. REVIEW OF PRIOR X-RAYS/STUDIES CT Cervical Spine (03/26/2018): Mild uncovertebral hypertrophy at C3-4 and C6-7 (left), with mild NFnarrowing. No central canal compromise. IMPRESSION/DIAGNOSIS 1. Chronic axial neck pain - probable chronic cervical radiculopathy with myofascial contributors. 2. History of recurrent right shoulder dislocations with impingement signs on exam. TREATMENT/PLAN Given his prior response to corticosteroid taper, recommend a trial of prescription strength antiinflammatories. A prescription for Mobic 15mg QD was sent to the patient's pharmacy. He will take thisscheduled for 2 weeks, then transition to as needed. Physical therapy referral was placed to improve painless ROM at the cervical spine / right shoulder, scapular stabilization and address postural contributors. Patient would benefit from trigger point injections which can be performed by his current pain provider. Patient was counseled on red flag symptoms for cervical radiculopathy. He will follow up as needed following today's encounter. Carlos Milligan D.O. Sports and Spine Fellow Physical Medicine and Rehabilitation [facility] Orthopedics Cosigned by Jacquelyn Chapman DO at 05/16/2018 3:46 PM CDT documented in this encounter Plan of Treatment Not on file documented as of this encounter Visit Diagnoses Diagnosis Myofascial pain- Primary Unspecified myalgia and myositis Cervical radiculopathy Brachial neuritis or radiculitis nos documented in this encounter Care Teams Fire Extinguisher Technician Relationship Specialty Start Date End Date Roxanna Moreno MD PCP - General 10/21/16 documented as of this encounter
--- OUTSIDE RECORDS SUMMARY | 2024-08-03 14:59 | XMS_ITS | Encounter Summary ---
Author Organization [facility] Healthcare Address [address] [place] [address] Care Team Providers Care Canine Service Instructor Trainer Name Role Phone Roxanna Moreno MD Primary Care Provider + Encounter Details Date Type Department Care Team (Latest Contact Info) Description 10/10/2018 9:16 AM BRIDGE BUILDER - 10/10/2018 10:51 AM BRIDGE BUILDER Hospital Encounter [facility] [address] [place] [phone] Dayanna Crump MD [address] [place] [address] Discharge Disposition: Discharge to home or self care Social History Tobacco Use Types Packs/Day Years Used Date Smoking Tobacco: Never Smokeless Tobacco: Never Alcohol Use Standard Drinks/Week Comments Yes 0 (1 standard drink = 0.6 oz pur e alcohol) Sex and Gender Information Value Date Recorded Sex Assigned at Not on file Legal Sex Male 1:57 AM BRIDGE BUILDER Gender Identity Male 06/20/2021 2:35 PM BRIDGE BUILDER Sexual Orientation Straight 06/20/2021 2: 35 PM BRIDGE BUILDER documented as of this encounter Last Filed Vital Signs Vital Sign Reading Time Taken Comments Blood Pressure 132/83 10/10/2018 10:43 AM BRIDGE BUILDER Pulse 60 10/10/2018 10:43 AM BRIDGE BUILDER Temperature - - Respiratory Rate 12 10/10/2018 10:43 AM BRIDGE BUILDER Oxygen Saturation 100% 10/10/2018 10:43 AM BRIDGE BUILDER Inhaled Oxygen Concentration - - Weight - - Height - - Body Mass Index - - documented in this encounter Discharge Instructions * Discharge Instructions* Sondra Cabrera RN - 10/10/2018 10:45 AM BRIDGE BUILDER Please see attached post-procedure sheet. May shower today. No swimming pools, hot tubs, bathtubs or soaking for 24 hours. May return to normal activities tomorrow. No driving today. May return to driving tomorrow. Activity as tolerated today. If you experience any shortness of breath, but go to the Emergency Room. GE BUILDER documented in this encounter Medications at Time [...] 10/10/2018 PCP: Roxanna Moreno MD Surgeon SURGEON: Dayanna Crump MD FORM SETTER SUPERVISOR SURGEON: None Procedures NAME OF PROCEDURE: Intercostal [...] case Dayanna Crump MD 10/10/2018 10:46 AM GE BUILDER documented in this encounter Plan of Treatment Not on file documented as of this encounter Procedures Procedure Name Priority Date/Time Associated Diagnosis Comments INJECTION INTERCOSTAL SINGLE 22571 10/10/2018 10:12 AM BRIDGE BUILDER PAIN documented in this encounter Visit Diagnoses Not on filedocumented in this encounter Active and Recently Administered Medications Times are shown in BRIDGE BUILDER. PRN Medication Order 10/08/2018 10/09/2018 10/10/2018 bupivacaine [...] % (2.5 mg/mL) preservative free injection 1 10/10/2018 iohexol (OMNIPAQUE) 300 mg i odine/mL injection solution 1 10/10/2018 lidocaine PF (XYLOCAINE) 10 mg/mL (1 %) preservative free injection 1 10/10/2018 methylPREDNISolone acetate ( DEPO-medrol) injection 1 10/10/2018 documented in this encounter Care Teams Canine Service Instructor Trainer Relationship Specialty Start Date End Date Roxanna Moreno MD PCP - General 10/21/16 documented as of this encounter
--- OUTSIDE RECORDS SUMMARY | 2024-08-03 14:59 | XMS_ITS | Encounter Summary ---
Author Organization [facility] Healthcare Address [address] [place] [address] Care Team Providers Care Ditch Rider Name Role Phone Roxanna Moreno MD Primary Care Provider + Encounter Details Date Type Department Care Team (Latest Contact Info) Description 11/26/2018 2:55 PM CDT - 11/26/2018 11:59 PM CDT Hospital Encounter [facility] [address] [facility] 1st [place] [phone] Dayanna Crump MD [address] [facility] [address] [place] [address] Myofascial pain Discharge Disposition: Discharge to home or self care Social History Tobacco Use Types Packs/Day Years Used Date Smoking Tobacco: Never Smokeless Tobacco: Never Alcohol Use Standard Drinks/Week Comments Yes 0 (1 standard drink = 0.6 oz pur e alcohol) Sex and Gender Information Value Date Recorded Sex Assigned at Not on file Legal Sex Male 1:57 AM DOCUMENT ADVISOR Gender Identity Male 06/20/2021 2:35 PM DOCUMENT ADVISOR Sexual Orientation Straight 06/20/2021 2: 35 PM DOCUMENT ADVISOR documented as of this encounter Medications at [...] Op Note - Dayanna Crump MD - 11/26/2018 11:59 PM CDT Patient ID Patient Name: Aleksandar Olsen : 1980 DOS: 03/29/2019 PCP: Roxanna Moreno MD Surgeon SURGEON: Dayanna Crump MD CARTON LETTERING MACHINE OPERATOR SURGEON: None Diagnosis: Myofascial Pain NAME OF [...] Resident involved on case Dayanna Crump MD 03/29/2019 3:25 PM documented in this encounter Plan of Treatment Not on file documented as of this encounter Visit Diagnoses Diagnosis Myofascial pain Unspecified myalgia and myositis documented in this encounter Care Teams Ditch Rider Relationship Specialty Start Date End Date Roxanna Moreno MD PCP - General 10/21/16 documented as of this encounter
--- OUTSIDE RECORDS SUMMARY | 2024-08-03 15:00 | XMS_ITS | Encounter Summary ---
Author Organization [facility] Healthcare Address [address] [place] [address] Care Team Providers Care Glass Cutter Name Role Phone Roxanna Moreno MD Primary Care Provider + Encounter Details Date Type Department Care Team (Late st Contact Info) Description 02/07/2018 11:45 AM CDT - 02/07/2018 12:00 PM CDT Surgery [facility] at [facility] [address] [facility] 1st [place] [phone] Dayanna Crump MD [address] [place] [address] Injection Intercostal Multi 28946 Surgery Details Date/Time Status Location OR Service Patient Class Case Class Case Type Trauma Case? 02/07/2018 11:45 AM Posted [facility] Pain Management Procedure Center Procedure Room 02 Pain Management Outpatient Elective Panel 1 Procedure LRB Anes Op Region Wound Class Comments Injection Intercostal Multi 22985 N/A Surgeon Surgeon Role Service Panel Dayanna [...] on file Legal Sex Male 1:57 AM CLIENT INTEGRATION MANAGER Gender Identity Male 06/20/2021 2:35 PM CLIENT INTEGRATION MANAGER Sexual Orientation Straight 06/20/2021 2: 35 PM CLIENT INTEGRATION MANAGER documented as of this encounter Discharge Instructions * Discharge Instructions* Apula, Caroline., RN - 02/07/2018 12:49 PM CDT Discharge instructions written & given to patient. Pt. Verbalized understansing. documented in this encounter Medications at Time [...] Op Note - Dayanna Crump MD - 02/07/2018 11:45 AM CDT Surgeon SURGEON: Dayanna Crump MD. 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 The discussion included consideration of specific adverse effects, including pneumothorax. Signs and symptoms of pneumothorax were reviewed with the patient and instructions were given that should symptoms of dyspnea or persistent chest discomfort arise within 48 hours, the patient should seek medical attention on an emergent basis. After reviewing the procedure with the patient, informed consent to proceed with the injection was obtained. A procedural permit was also signed. DESCRIPTION OF PROCEDURE: In the prone position, the ribs were identified under fluoroscopy. The injection sites were marked, just over the inferior margins of the ribs, as palpated, for the levels to be injected. The area was prepped with chlorhexidine and sterile towels. Sterile technique was used throughout. The needle entry points and subcutaneous tissues were infiltrated with 1% lidocaine, using a 27-gauge needle. Subsequently, a 22-gauge 3 1/2 B bevel needle with a bent tip was advanced to the periosteum of the rib and then walked caudad to step off the caudad or inferior margin of the rib. Fluoroscopy was used to guide needle placement. The needle was advanced 1-2 mm. beyond the posterior margin of the rib. Aspiration was negative for blood or air. Omnipaque 300 was injected to confirm accurate placement of the needle in the neurovascular bundle. This procedure was repeated atright ribs 7, 8, and 9. A solution was created containing 40 mg depo-medrol with 0.25% bupivacaine (8ml) for total 9ml solution. In each neurovascular bundle 3ml solution was injected. The procedure was well tolerated, there were no apparent complications. Dr. Crump was present for, and participated in, the entire procedure. DISPOSITION: Patient discharged home in stable condition. documented in this encounter Plan of Treatment Not on file documented as of this encounter Procedures Procedure Name Priority Date/Time Associated Diagnosis Comments INJECTION INTERCOSTAL MULTI 62046 02/07/2018 12:27 PM CDT Chest Pain documented in this encounter Visit Diagnoses Not on filedocumented in this encounter Administered Medications Inactive Administered Medications - up to 3 most recent administrations Medication Order MAR Action Action Date Dose Rate Site bupivacaine (MARCAINE) 0.25 % (2.5 mg/mL) preservative free injection As needed, Starting on Mon02/07/18 at 1241, Intra-Op Given 02/07/2018 12:41 PM CDT 8 mL iohexol (OMNIPAQUE) 300 mg iodine/mL injection solution As needed, Starting on Mon02/07/18 at 1241, Intra-Op Given 02/07/2018 12:41 PM CDT 1.5 mL lidocaine PF (XYLOCAINE) 10 mg/mL (1 %) preservative free injection As needed, Starting on Mon02/07/18 at 1240, Intra-Op Given 02/07/2018 12:40 PM CDT 2 mL methylPREDNISolone acetate (DEPO-medrol) injection As needed, Starting on Mon02/07/18 at 1241, Intra-Op Given 02/07/2018 12:41 PM CDT 40 mg documented in this encounter Active and Recently Administered Medications Times are shown in CDT. PRN Medication Order 02/05/2018 02/06/2018 02/07/2018 bupivacaine (MARCAINE) 0.25 % (2.5 mg/mL) preservative free injection (CANCELED) As needed, Starting on Mon02/07/18 at 1241, Intra-Op 1241 (Given - Provid er: Dayanna Crump MD) iohexol (OMNIPAQUE) 300 mg iodine/mL injection solution (CANCELED) As needed, Starting on Mon02/07/18 at 1241, Intra-Op 1241 (Given - Provid er: Dayanna Crump MD) lidocaine PF (XYLOCAINE) 10 mg/mL (1 %) preservative free injection (CANCELED) As needed, Starting on Mon02/07/18 at 1240, Intra-Op 1240 (Given - Provid er: Dayanna Crump MD) methylPREDNISolone acetate (DEPO-medrol) injection (CANCELED) As needed, Starting on Mon02/07/18 at 1241, Intra-Op 1241 (Given - Provid er: Dayanna Crump MD) documented in this encounter Care Teams Glass Cutter Relationship Specialty Start Date End Date Roxanna Moreno MD PCP - General 10/21/16 documented as of this encounter
--- OUTSIDE RECORDS SUMMARY | 2024-08-03 15:01 | XMS_ITS | Encounter Summary ---
Author Organization [facility] Healthcare Address [address] [place] [address] Care Team Providers Care Security Researcher Name Role Phone Roxanna Moreno MD Primary Care Provider + Encounter Details Date Type Department Care Team (Latest Contact Info) Description 12/26/2016 3:15 PM CDT - 12/26/2016 11:59 PM CDT Hospital Encounter [facility] OP INTERIM [phone] [place] [address] [place] [address] Charissa Dillard PA [address] [facility] [address] [place] [address] Discharge Disposition: Discharge to home or self care Social History Tobacco Use Types Packs/Day Years Used Date Smoking Tobacco: Never Alcohol Use Standard Drinks/Week Comments Yes 0 (1 standard drink = 0.6 oz pur e alcohol) Sex and Gender Information Value Date Recorded Sex Assigned at Not on file Legal Sex Male 1:57 AM CIVIL RIGHTS ATTORNEY Gender Identity Male 06/20/2021 2:35 PM CIVIL RIGHTS ATTORNEY Sexual Orientation Straight 06/20/2021 2: 35 PM CIVIL RIGHTS ATTORNEY documented as of this encounter Medications at Time of Discharge baclofen (LIORESAL) 10 mg tablet Take 10 mg by mouth 3 (three) times a day. 12/22/2015 01/22/2019 gabapentin (NEURONTIN) 600 mg tablet Take 600 mg by mouth 3 (three) times a day. One and half tablets 03/03/2016 04/02/2020 documented as of this encounter Discharge Disposition Disposition Code Departure Means Destination Discharge to home or self care documented in this encounter Plan of Treatment Not on file documented as of this encounter Procedures Procedure Name Priority Date/Time Associated Diagnosis Comments US RETROPERITONEAL COMPLETE Routine 12/26/2016 8:55 PM CDT documented in this encounter Results * US Retroperitoneal Complete (12/26/2016 8:55 PM CDT) Anatomical Region Laterality Modality Abdomen N/A Ultrasound 12/26/2016 8:55 PM CDT Narrative 12/26/2016 8:55 PM CDT DEX ALAN M.D. FINAL REPORT ACC# ??Date Time ??Exam [id number] December 26, 2016 15:55:00 95028 US Retroper cmp EXAMINATION: ?COMPLETE RENAL SONOGRAM HISTORY: Right groin pain COMPARISON: NaF PET/CT 10/21/2016 FINDINGS: The echogenicity of both kidneys is normal. ??There is no hydronephrosis in either kidney. ??There are no renal calculi visualized. The right kidney measures 11.9 cm in length, and the left, 11.9 cm in length. ??The bladder is normal. ??Bilateral ureteral jets are identified. Incidentally noted is hepatic steatosis. IMPRESSION: ?? 1. Normal kidneys. ??No hydronephrosis or sonographically evident renal stones. 2. Incidentally noted hepatic steatosis. Requested By: CHARISSA DILLARD ??SANDRA ? Dictated By: ?? DEX ALAN M.D. ??on Dec 26 2016 ??4:01P This document has been electronically signed by: DEX ALAN M.D. on Dec 26 2016 ??4:01P [id number] Procedure Note Miscellaneous, Not In File - 01/07/2017 DEX ALAN M.D. FINAL REPORT ACC# Date Time Exam [id number] December 26, 2016 15:55:00 [id number] US Retroper cmp EXAMINATION: COMPLETE RENAL SONOGRAM HISTORY: Right groin pain COMPARISON: NaF PET/CT 10/21/2016 FINDINGS: The echogenicity of both kidneys is normal. There is no hydronephrosis in either kidney. There are no renal calculi visualized. The right kidney measures 11.9 cm in length, and the left, 11.9 cm in length. The bladder is normal. Bilateral ureteral jets are identified. Incidentally noted is hepatic steatosis. IMPRESSION: 1. Normal kidneys. No hydronephrosis or sonographically evident renal stones. 2. Incidentally noted hepatic steatosis. Requested By: CHARISSA DILLARD PA-C Dictated By: DEX ALAN M.D. on Dec 26 2016 4:01P This document has been electronically signed by: DEX ALAN M.D. on Dec 26 2016 4:01P [id number] us Not In File Miscellaneous IMG US PROCEDURES Janneth l Result documented in this encounter Visit Diagnoses Not on filedocumented in this encounter Care Teams Security Researcher Relationship Specialty Start Date End Date Roxanna Moreno MD PCP - General 10/21/16 documented as of this encounter
--- OUTSIDE RECORDS SUMMARY | 2024-08-03 15:01 | XMS_ITS | Encounter Summary ---
Author Organization [facility] Healthcare Address [address] [place] [address] Care Team Providers Care Crop Duster Helper Name Role Phone Roxanna Moreno MD Primary Care Provider + Encounter Details Date Type Department Care Team (Late st Contact Info) Description 10/12/2017 3:45 PM ARCHITECTURAL MANAGER Ancillary Procedure [facility] [address] [place] [address] Dayanna Crump MD [address] [place] [address] Chest pain Social History Tobacco Use Types Packs/Day Years Used Date Smoking Tobacco: Never Alcohol Use Standard Drinks/Week Comments Yes 0 (1 standard drink = 0.6 oz pur e alcohol) Sex and Gender Information Value Date Recorded Sex Assigned at Not on file Legal Sex Male 1:57 AM ARCHITECTURAL MANAGER Gender Identity Male 06/20/2021 2:35 PM ARCHITECTURAL MANAGER Sexual Orientation Straight 06/20/2021 2: 35 PM ARCHITECTURAL MANAGER documented as of this encounter Plan of Treatment Not on file documented as of this encounter Procedures Procedure Name Priority Date/Time Associated Diagnosis Comments FLUORO GUIDED NEEDLE PLACEMENT Schedule Routine, Read Routine (OP Routine) 10/12/2017 4:30 PM ARCHITECTURAL MANAGER Chest pain documented in this encounter Results * FL Fluoro Guided Needle Placement (10/12/2017 4:30 PM ARCHITECTURAL MANAGER) Narrative [facility] - 10/12/2017 4:55 PM ARCHITECTURAL MANAGER The images from this study are not interpreted by Radiology. ??Please refer to the physician's procedure / OR operative note. us Dayanna Crump MD IMG FLUOROSCOPY [employer] Final Result [facility] documented in this encounter Visit Diagnoses Diagnosis Chest pain Unspecified chest pain documented in this encounter Administered Medications Inactive Administered Medications - up to 3 most recent administrations Medication Order MAR Action Action Date Dose Rate Site iohexol (OMNIPAQUE) 300 mg iodine/mL injection solution 5 mL 5 mL, intrathecal, Once in imaging, contrast, Starting on Alanis 10/12/17 at 1606, For 1 dose Given 10/12/2017 4:55 PM ARCHITECTURAL MANAGER 5 mL documented in this encounter Care Teams Crop Duster Helper Relationship Specialty Start Date End Date Roxanna Moreno MD PCP - General 10/21/16 documented as of this encounter
--- OUTSIDE RECORDS SUMMARY | 2024-08-03 15:01 | XMS_ITS | Encounter Summary ---
Author Organization [facility] Healthcare Address [address] [place] [address] Care Team Providers Care Diet Therapist Name Role Phone Roxanna Moreno MD Primary Care Provider + Encounter Details Date Type Department Care Team (Latest Contact Info) Description 04/07/2017 2:27 PM CDT - 04/07/2017 11:59 PM CDT Hospital Encounter [facility] INTERIM [phone] Dayanna Crump MD [address] [facility] [address] [place] [address] Discharge Disposition: Discharge to home or self care Social History Tobacco Use Types Packs/Day Years Used Date Smoking Tobacco: Never Alcohol Use Standard Drinks/Week Comments Yes 0 (1 standard drink = 0.6 oz pur e alcohol) Sex and Gender Information Value Date Recorded Sex Assigned at Not on file Legal Sex Male 1:57 AM RIG MECHANIC Gender Identity Male 06/20/2021 2:35 PM RIG MECHANIC Sexual Orientation Straight 06/20/2021 2: 35 PM RIG MECHANIC documented as of this encounter Medications at [...] on filedocumented in this encounter Care Teams Diet Therapist Relationship Specialty Start Date End Date Roxanna Moreno MD PCP - General 10/21/16 documented as of this encounter
--- OUTSIDE RECORDS SUMMARY | 2024-08-03 15:01 | XMS_ITS | Encounter Summary ---
Author Organization [facility] Healthcare Address [address] [place] [address] Care Team Providers Care Catering Staff Member Name Role Phone Roxanna Moreno MD Primary Care Provider + Encounter Details Date Type Department Care Team (Latest Contact Info) Description 02/07/2018 10:59 AM CDT - 02/07/2018 1:02 PM CDT Hospital Encounter [facility] [address] [place] [phone] Dayanna Crump MD [address] [place] [address] Discharge Disposition: Discharge to home or self care Social History Tobacco Use Types Packs/Day Years Used Date Smoking Tobacco: Never Smokeless Tobacco: Never Alcohol Use Standard Drinks/Week Comments Yes 0 (1 standard drink = 0.6 oz pur e alcohol) Sex and Gender Information Value Date Recorded Sex Assigned at Not on file Legal Sex Male 1:57 AM UNDERGROUND FOREMAN Gender Identity Male 06/20/2021 2:35 PM UNDERGROUND FOREMAN Sexual Orientation Straight 06/20/2021 2: 35 PM UNDERGROUND FOREMAN documented as of this encounter Last Filed Vital Signs Vital Sign Reading Time Taken Comments Blood Pressure 117/77 02/07/2018 12:45 PM CDT Pulse 63 02/07/2018 12:45 PM CDT Temperature - - Respiratory Rate 12 02/07/2018 12:45 PM CDT Oxygen Saturation 98% 02/07/2018 12:45 PM CDT Inhaled Oxygen Concentration - - Weight - - Height - - Body Mass Index - - documented in this encounter Discharge Instructions * Discharge Instructions* Almita Mitchell RN - 02/07/2018 12:49 PM CDT Discharge [...] tolerated, there were no apparent complications. Dr. rCump was present for, and participated in, the entire procedure. DISPOSITION: Patient discharged home in stable condition. documented in this encounter Plan of Treatment Not on file documented as of this encounter Procedures Procedure Name Priority Date/Time Associated Diagnosis Comments INJECTION INTERCOSTAL MULTI 81293 02/07/2018 12:27 PM CDT Chest Pain documented [...] % (2.5 mg/mL) preservative free injection 1 02/07/2018 iohexol (OMNIPAQUE) 300 mg i odine/mL injection solution 1 02/07/2018 lidocaine PF (XYLOCAINE) 10 mg/mL (1 %) preservative free injection 1 02/07/2018 methylPREDNISolone acetate ( DEPO-medrol) injection 1 02/07/2018 documented in this encounter Care Teams Catering Staff Member Relationship Specialty Start Date End Date Roxanna Moreno MD PCP - General 10/21/16 documented as of this encounter
--- OUTSIDE RECORDS SUMMARY | 2024-08-03 15:01 | XMS_ITS | Encounter Summary ---
Author Organization [facility] Healthcare Address [address] [place] [address] Care Team Providers Care Global Recruiter Name Role Phone Roxanna Moreno MD Primary Care Provider + Encounter Details Date Type Department Care Team (Latest Contact Info) Description 03/08/2017 12:39 PM CDT - 03/08/2017 11:59 PM CDT Hospital Encounter [facility] INTERIM [phone] Dayanna Crump MD [address] [facility] [address] [place] [address] Discharge Disposition: Discharge to home or self care Social History Tobacco Use Types Packs/Day Years Used Date Smoking Tobacco: Never Alcohol Use Standard Drinks/Week Comments Yes 0 (1 standard drink = 0.6 oz pur e alcohol) Sex and Gender Information Value Date Recorded Sex Assigned at Not on file Legal Sex Male 1:57 AM ELECTRIFICATION ADVISER Gender Identity Male 06/20/2021 2:35 PM ELECTRIFICATION ADVISER Sexual Orientation Straight 06/20/2021 2: 35 PM ELECTRIFICATION ADVISER documented as of this encounter Medications at [...] on filedocumented in this encounter Care Teams Global Recruiter Relationship Specialty Start Date End Date Roxanna Moreno MD PCP - General 10/21/16 documented as of this encounter
--- OUTSIDE RECORDS SUMMARY | 2024-08-03 15:01 | XMS_ITS | Encounter Summary ---
Author Organization [facility] Healthcare Address [address] [place] [address] Care Team Providers Care Form Block Maker Name Role Phone Roxanna Moreno MD Primary Care Provider + Encounter Details Date Type Department Care Team (Latest Contact Info) Description 11/22/2016 12:59 PM CDT - 11/22/2016 11:59 PM CDT Hospital Encounter [facility] INTER[facility] [phone] Dayanna Crump MD [address] [facility] [address] [place] [address] Discharge Disposition: Discharge to home or self care Social History Tobacco Use Types Packs/Day Years Used Date Smoking Tobacco: Never Alcohol Use Standard Drinks/Week Comments Yes 0 (1 standard drink = 0.6 oz pur e alcohol) Sex and Gender Information Value Date Recorded Sex Assigned at Not on file Legal Sex Male 1:57 AM TRIM MECHANIC Gender Identity Male 06/20/2021 2:35 PM TRIM MECHANIC Sexual Orientation Straight 06/20/2021 2: 35 PM TRIM MECHANIC documented as of this encounter Medications [...] on filedocumented in this encounter Care Teams Form Block Maker Relationship Specialty Start Date End Date Roxanna Moreno MD PCP - General 10/21/16 documented as of this encounter
--- OUTSIDE RECORDS SUMMARY | 2024-08-03 15:01 | XMS_ITS | Encounter Summary ---
Author Organization [facility] Facility Care Team Providers Care Program Supervisor Name Role Phone Unavailable Primary Care Provider Unavailabl e Encounter Details Date Type Department Care Team (Late st Contact Info) Description 04/07/2016 2:47 PM CDT - 04/07/2016 11:59 PM CDT Hospital Encounter [facility] CL[facility]CON[facility] Dayanna Bejarano MD [address] [place] [address] Dorsalgia Social History Tobacco Use Types Packs/Day Years Used Date Smoking Tobacco: Never Alcohol Use Standard Drinks/Week Comments Yes 0 (1 standard drink = 0.6 oz pur e alcohol) Sex and Gender Information Value Date Recorded Sex Assigned at Not on file Legal Sex Male 1:57 AM MERCHANDISING TEAM LEAD Gender Identity Male 06/20/2021 2:35 PM MERCHANDISING TEAM LEAD Sexual Orientation Straight 06/20/2021 2: 35 PM MERCHANDISING TEAM LEAD documented as of this encounter Medications at Time of Discharge baclofen (LIORESAL) 10 mg tablet Take 10 mg by mouth 3 (three) times a day. 12/22/2015 01/22/2019 gabapentin (NEURONTIN) 600 mg tablet Take 600 mg by mouth 3 (three) times a day. One and half tablets 03/03/2016 04/02/2020 documented as of this encounter Plan of Treatment Not on file documented as of this encounter Procedures Procedure Name Priority Date/Time Associated Diagnosis Comments XR SPINE THORACIC 3 VIEWS Routine 04/07/2016 3:17 PM CDT documented in this encounter Results * XR Spine Thoracic 3 Vw (04/07/2016 3:17 PM CDT) Anatomical Region Laterality Modality Spine N/A Radiographic La[place] ging 04/07/2016 3:17 PM CDT Narrative 04/13/2016 4:50 PM CDT Thoracic spine radiographs HISTORY: Upper back pain. 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 FINDINGS: AP and lateral views of the lumbar spine demonstrate no evidence of acute fracture, malalignment, or bone destruction. ??There are areas of mild disc space narrowing with associated endplate spurring seen in the mid and lower thoracic spine consistent with degenerative disc disease. ??Elsewhere, the disc spaces appear preserved. ??A dorsal column stimulator is seen at the T6-T8 levels. ?? 12 rib-bearing thoracic segments are present. IMPRESSION: 1. ??Areas of degenerative disc disease noted in the mid and lower thoracic spine as above. 2. ??No evidence of acute fracture, malalignment, or bone destruction. 3. ??Dorsal column stimulator in place. Electronically signed by: Ross Quiroz M.D. Radiologist: ROSS QUIROZ MD ?? Attending: ??DAYANNA BEJARANO ?? Requesting: DAYANNA BEJARANO ?? Requesting Fax: ?? Requesting ID: [id number] Attending Fax: ?? Attending ID: ?? [id number] Completed Time: ?? 04/07/2016 3:17 PM Dictated Time: ?N/A Transcribed Time: 04/13/2016 4:50 PM Signed by: ?ROSS QUIROZ MD ?? on 04/13/2016 4:50 PM Report To 1 ID: Report To 1 Name: , Report To 1 FAX: Report To 2 ID: Report To 2 Name: , Report To 2 FAX: Report To 3 ID: Report To 3 Name: , Report To 3 FAX: NextGen Order #: Procedure Note Provider, MD Fernanda - 12/17/2016 Thoracic spine radiographs HISTORY: Upper back pain. 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 FINDINGS: AP and lateral views of the lumbar spine demonstrate no evidence of acute fracture, malalignment, or bone destruction. There are areas of mild disc space narrowing with associated endplate spurring seen in the mid and lower thoracic spine consistent with degenerative disc disease. Elsewhere, the disc spaces appear preserved. A dorsal column stimulator is seen at the T6-T8 levels. 12 rib-bearing thoracic segments are present. IMPRESSION: 1. Areas of degenerative disc disease noted in the mid and lower thoracic spine as above. 2. No evidence of acute fracture, malalignment, or bone destruction. 3. Dorsal column stimulator in place. Electronically signed by: Ross Quiroz M.D. Radiologist: ROSS QUIROZ MD Attending: DAYANNA BEJARANO Requesting: DAYANNA BEJARANO Requesting Requesting ID: [id number] Attending Attending ID: [id number] Completed Time: 04/07/2016 3:17 PM Dictated Time: N/A Transcribed Time: 04/13/2016 4:50 PM Signed by: ROSS QUIROZ MD on 04/13/2016 4:50 PM Report To 1 ID: Report To 1 Name: , Report To 1 FAX: Report To 2 ID: Report To 2 Name: , Report To 2 FAX: Report To 3 ID: Report To 3 Name: , Report To 3 FAX: NextGen Order #: us Historical Provider MD COLLAZO XR PROCEDURES Final R esult documented in this encounter Visit Diagnoses Diagnosis Dorsalgia Pain in thoracic spine documented in this encounter
--- OUTSIDE RECORDS SUMMARY | 2024-08-03 15:01 | XMS_ITS | Encounter Summary ---
Author Organization [facility] Healthcare Address [address] [place] [address] Care Team Providers Care Mannequin Mold Maker Name Role Phone Roxanna Moreno MD Primary Care Provider + Encounter Details Date Type Department Care Team (Latest Contact Info) Description 10/21/2016 9:21 AM ABSORPTION PLANT OPERATOR - 10/21/2016 11:59 PM ABSORPTION PLANT OPERATOR Hospital Encounter [facility] OP INTERIM [phone] Dayanna Crump MD [address] [facility] [address] [place] [address] Discharge Disposition: Discharge to home or self care Social History Tobacco Use Types Packs/Day Years Used Date Smoking Tobacco: Never Alcohol Use Standard Drinks/Week Comments Yes 0 (1 standard drink = 0.6 oz pur e alcohol) Sex and Gender Information Value Date Recorded Sex Assigned at Not on file Legal Sex Male 1:57 AM ABSORPTION PLANT OPERATOR Gender Identity Male 06/20/2021 2:35 PM ABSORPTION PLANT OPERATOR Sexual Orientation Straight 06/20/2021 2: 35 PM ABSORPTION PLANT OPERATOR documented as of this encounter Medications at [...] on filedocumented in this encounter Care Teams Mannequin Mold Maker Relationship Specialty Start Date End Date Roxanna Moreno MD PCP - General 10/21/16 documented as of this encounter
--- OUTSIDE RECORDS SUMMARY | 2024-08-03 15:01 | XMS_ITS | Encounter Summary ---
Author Organization [facility] Facility Care Team Providers Care Financial Services Auditor Name Role Phone Unavailable Primary Care Provider Unavailabl e Encounter Details Date Type Department Care Team (Late st Contact Info) Description 04/07/2016 1:22 PM CDT - 04/07/2016 11:59 PM CDT Hospital Encounter [facility] CLINCONV Dayanna Crump MD [address] [place] [address] Other chronic pain; Chronic post-thoracotomy pain; Other specified mononeuropathies; Pain in thoracic spine; Other long distance operator (current) drug therapy; Presence of other specified devices; intermodal truck driver current use of non-steroidal anti-inflammatories (NSAID) Social History Tobacco Use Types Packs/Day Years Used Date Smoking Tobacco: Never Alcohol Use Standard Drinks/Week Comments Yes 0 (1 standard drink = 0.6 oz pur e alcohol) Sex and Gender Information Value Date Recorded Sex Assigned at Not on file Legal Sex Male 1:57 AM LEI MAKER Gender Identity Male 06/20/2021 2:35 PM LEI MAKER Sexual Orientation Straight 06/20/2021 2: 35 PM LEI MAKER documented as of this encounter Medications at [...] this encounter Visit Diagnoses Diagnosis Other chronic pain 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
--- OUTSIDE RECORDS SUMMARY | 2024-08-03 15:01 | XMS_ITS | Encounter Summary ---
Author Organization [facility] Facility Care Team Providers Care Regional Sales Engineer Name Role Phone Unavailable Primary Care Provider Unavailabl e Encounter Details Date Type Department Care Team (Late st Contact Info) Description 06/08/2016 12:48 PM CDT - 06/08/2016 11:59 PM CDT Hospital Encounter [facility] CLINCONV Dayanna Crump MD [address] [place] [address] Other chronic pain; Chronic post-thoracotomy pain; Other specified mononeuropathies; Pain in thoracic spine Social History Tobacco Use Types Packs/Day Years Used Date Smoking Tobacco: Never Alcohol Use Standard Drinks/Week Comments Yes 0 (1 standard drink = 0.6 oz pur e alcohol) Sex and Gender Information Value Date Recorded Sex Assigned at Not on file Legal Sex Male 1:57 AM FORKLIFT TRUCK OPERATOR Gender Identity Male 06/20/2021 2:35 PM FORKLIFT TRUCK OPERATOR Sexual Orientation Straight 06/20/2021 2: 35 PM FORKLIFT TRUCK OPERATOR documented as of this encounter Medications [...] Other specified mononeuropathies Pain in thoracic spine documented in this encounter
--- OUTSIDE RECORDS SUMMARY | 2024-08-03 15:01 | XMS_ITS | Encounter Summary ---
Author Organization [facility] Healthcare Address [address] [place] [address] Care Team Providers Care Electrocardiograph Technician Name Role Phone Roxanna Moreno MD Primary Care Provider + Encounter Details Date Type Department Care Team (Latest Contact Info) Description 06/28/2017 10:51 AM HEALTHCARE APPLICATIONS ANALYST - 06/28/2017 11:59 PM HEALTHCARE APPLICATIONS ANALYST Hospital Encounter [facility] OP INTERIM [phone] Dayanna Crump MD [address] [address] [place] [address] Discharge Disposition: Discharge to home or self care Social History Tobacco Use Types Packs/Day Years Used Date Smoking Tobacco: Never Alcohol Use Standard Drinks/Week Comments Yes 0 (1 standard drink = 0.6 oz pur e alcohol) Sex and Gender Information Value Date Recorded Sex Assigned at Not on file Legal Sex Male 1:57 AM HEALTHCARE APPLICATIONS ANALYST Gender Identity Male 06/20/2021 2:35 PM HEALTHCARE APPLICATIONS ANALYST Sexual Orientation Straight 06/20/2021 2: 35 PM HEALTHCARE APPLICATIONS ANALYST documented as of this encounter Medications at [...] on filedocumented in this encounter Care Teams Electrocardiograph Technician Relationship Specialty Start Date End Date Roxanna Moreno MD PCP - General 10/21/16 documented as of this encounter
--- OUTSIDE RECORDS SUMMARY | 2024-08-03 15:01 | XMS_ITS | Encounter Summary ---
Author Organization [facility] Healthcare Address [address] [place] [address] Care Team Providers Care Storeroom Attendant Name Role Phone Unavailable Primary Care Provider Unavailabl e Encounter Details Date Type Department Care Team (Late st Contact Info) Description 05/12/2011 10:12 AM CDT - 05/14/2011 6:45 PM CDT Hospital Encounter [facility] Cellulitis and abscess; Cellulitis and abscess of trunk; Mononeuritis of lower limb; Surgical operation with implant of artificial internal device causing abnormal patient reaction, or later complication; Unspecified place of occurrence Social History Tobacco Use Types Packs/Day Years Used Date Smoking Tobacco: Never Assessed Alcohol Use Standard Drinks/Week Comments Yes 0 (1 standard drink = 0.6 oz pur e alcohol) Sex and Gender Information Value Date Recorded Sex Assigned at Not on file Legal Sex Male 1:57 AM BLACKING MACHINE OPERATOR Gender Identity Male 06/20/2021 2:35 PM BLACKING MACHINE OPERATOR Sexual Orientation Straight 06/20/2021 2: 35 PM BLACKING MACHINE OPERATOR documented as of this encounter Plan of Treatment Not on file documented as of this encounter Visit Diagnoses Diagnosis Cellulitis and abscess Cellulitis and abscess of unspecified site Cellulitis and abscess of trunk Mononeuritis of lower limb Unspecified mononeuritis of lower limb Surgical operation with implant of artificial internal device causing abnormal patient reaction, or later complication Unspecified place of occurrence documented in this encounter
--- OUTSIDE RECORDS SUMMARY | 2024-08-03 15:01 | XMS_ITS | Encounter Summary ---
Author Organization [facility] Healthcare Address [address] [place] [address] Care Team Providers Care Asset Accountant Name Role Phone Roxanna Moreno MD Primary Care Provider + Encounter Details Date Type Department Care Team (Late st Contact Info) Description 10/12/2017 3:45 PM DIESEL MAINTENANCE ELECTRICIAN - 10/12/2017 4:00 PM DIESEL MAINTENANCE ELECTRICIAN Surgery [facility] Center at [facility] [address] [facility] 1st [place] [address] Dayanna Crump MD [address] [place] [address] intercostal Surgery Details Date/Time Status Location OR Service Patient Class Case Class Case Type Trauma Case? 10/12/2017 3:45 PM Posted [facility] Pain Management Procedure Center Procedure Room 02 Pain Management Outpatient Elective Panel 1 Procedure LRB Anes Op Region Wound Class Comments intercostal N/A Surgeon Surgeon Role Service Panel Dayanna [...] on file Legal Sex Male 1:57 AM DIESEL MAINTENANCE ELECTRICIAN Gender Identity Male 06/20/2021 2:35 PM DIESEL MAINTENANCE ELECTRICIAN Sexual Orientation Straight 06/20/2021 2: 35 PM DIESEL MAINTENANCE ELECTRICIAN documented as of this encounter Medications at [...] Priority Date/Time Associated Diagnosis Comments PAIN MGMT INJECTION PROCEDURE 10/12/2017 4:15 PM DIESEL MAINTENANCE ELECTRICIAN pain documented in this encounter Visit Diagnoses Not on filedocumented in this encounter Care Teams Asset Accountant Relationship Specialty Start Date End Date Roxanna Moreno MD PCP - General 10/21/16 documented as of this encounter
--- OUTSIDE RECORDS SUMMARY | 2024-08-03 15:01 | XMS_ITS | Encounter Summary ---
Author Organization [facility] Healthcare Address [address] [place] [address] Care Team Providers Care Sustain Engineer Name Role Phone Roxanna Moreno MD Primary Care Provider + Encounter Details Date Type Department Care Team (Late st Contact Info) Description 11/28/2017 3:00 PM CDT - 11/28/2017 3:15 PM CDT Surgery [facility] at [facility] [address] [facility] 1st [place] [phone] Dayanna Crump MD [address] [place] [address] TPI Surgery Details Date/Time Status Location OR Service Patient Class Case Class Case Type Trauma Case? 11/28/2017 3:00 PM Posted [facility] Pain Management Procedure Center Procedure Room 03 [...] on file Legal Sex Male 1:57 AM STOCKROOM CLERK Gender Identity Male 06/20/2021 2:35 PM STOCKROOM CLERK Sexual Orientation Straight 06/20/2021 2: 35 PM STOCKROOM CLERK documented as of this encounter Medications at [...] Associated Diagnosis Comments PAIN MGMT INJECTION PROCEDURE 11/28/2017 3:55 PM CDT PAIN documented in this encounter Visit Diagnoses Not on filedocumented in this encounter Care Teams Sustain Engineer Relationship Specialty Start Date End Date Roxanna Moreno MD PCP - General 10/21/16 documented as of this encounter
--- OUTSIDE RECORDS SUMMARY | 2024-08-03 15:01 | XMS_ITS | Encounter Summary ---
Author Organization [facility] Healthcare Address [address] [place] [address] Care Team Providers Care Synoptic Meteorologist Name Role Phone Roxanna Moreno MD Primary Care Provider + Reason for Visit * Reason Comments Back Pain Encounter Details Date Type Department Care Team (Late st Contact Info) Description 02/07/2018 11:30 AM CDT Procedure visit [facility] [address] [facility] 1st [place] [address] Dayanna Crump MD [address] [place] [address] Other chronic pain (Primary Dx); Intercostal neuralgia; [...] file Legal Sex Male 1:57 AM NURSING EDUCATION CONSULTANT Gender Identity Male 06/20/2021 2:35 PM NURSING EDUCATION CONSULTANT Sexual Orientation Straight 06/20/2021 2: 35 PM NURSING EDUCATION CONSULTANT documented as of this encounter Last Filed Vital Signs Vital Sign Reading Time Taken Comments Blood Pressure 142/93 02/07/2018 11:49 AM CDT Pulse 78 02/07/2018 11:49 AM CDT Temperature 36.7 ??C (98.1 ??F) 02/07/2018 11:49 AM C DT Respiratory Rate 16 02/07/2018 11:49 AM CDT Oxygen Saturation 96% 02/07/2018 11:49 AM CDT Inhaled Oxygen Concentration - - Weight 122.5 kg (270 lb) 02/07/2018 11:49 AM CDT Height 180.3 cm (5' 11 ) 02/07/2018 11:49 AM CDT Body Mass Index 37.66 02/07/2018 11:49 AM CDT documented in this encounter Discharge Disposition Disposition Code Departure Means Destination Discharge to home or self care documented in this encounter Progress Notes * Dayanna Crump MD - 02/07/2018 11:30 AM CDT Progress Note Patient Name: Aleksandar Olsen : 1980 Today's Date: 02/07/2018 PCP: Roxanna Moreno MD Referring: No ref. provider found SUBJECTIVE Chief complaint of Chief Complaint Patient presents with ??? Back Pain Interval History: Patient is here today for intercostal nerve block. He continues to report benefitfrom both this procedure and TPI done last visit. Patient's Medications New Prescriptions No medications [...] Respiratory: Negative for shortness of breath. Musculoskeletal: Chest wall pain OBJECTIVE Vitals: 24hr Min/Max: @FLOWSTAT(6,8,5,9,10:24::1)@ Most Recent : Vitals: 02/07/18 1149 BP: 142/93 Pulse: 78 Resp: 16 Temp: 98.1 ??F (36.7 ??C) SpO2: 96% Physical Exam: Physical Exam Constitutional: He is [...] Primary Intercostal neuralgia Myofascial pain PLAN: 1. Intervention: Will repeat Right T7, T8, T9 intercostal today. TPI next visit 2. Medications: a. Opioids: none indicated at this time. b. Adjuvants: Continue gabapentin 900 TID, lidocaine cream, Baclofen 10mg QHS to goal of TID, duloxetine 60 mg daily - Continue Medtronic SCS use for back and right chest pain. Pt uses high frequency setting intermittently. 3. Imaging:none 4. Referral: He is participating in PT for the pain 5. Follow-up: in 4 weeks for TPI and 12-16 weeks for intercostal nerve block Return in about 4 weeks (around 03/07/2018) for Procedure. 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 irbesartan (AVAPRO) 300 mg tabletIndications :hypertension Take 1 tablet (300 mg total) by mouth every morning 3 01/18/2018 hydroCHLOROthiazi de (HYDRODIURIL) 25 mg tabletIndications :hypertension Take 25 mg by mouth every morning 2 01/18/2018 08/23/2021 gabapentin (NEURONTIN) 600 mg tablet Take 600 mg by mouth 3 (three) times a day. One and half tablets 03/03/2016 04/02/[address] (CYMBALTA) 60 mg capsule Take 60 mg by mouth daily. 11 01/10/2018 09/10/2018 baclofen (LIORESAL) 10 mg tablet Take 10 mg by mouth 3 (three) times a day. 12/22/2015 01/22/2019 added in this encounter Care Teams Synoptic Meteorologist Relationship Specialty Start Date End Date Roxanna Moreno MD PCP - General 10/21/16 documented as of this encounter
--- OUTSIDE RECORDS SUMMARY | 2024-08-03 15:01 | XMS_ITS | Encounter Summary ---
Author Organization [facility] Healthcare Address [address] [place] [address] Care Team Providers Care Medical Collections Specialist Name Role Phone Roxanna Moreno MD Primary Care Provider + Encounter Details Date Type Department Care Team (Latest Contact Info) Description 11/28/2017 2:32 PM CDT - 11/28/2017 4:15 PM CDT Hospital Encounter [facility] Pain Management [address] [place] [phone] Dayanna Crump MD [address] [place] [address] Discharge Disposition: Discharge to home or self care Social History Tobacco Use Types Packs/Day Years Used Date Smoking Tobacco: Never Alcohol Use Standard Drinks/Week Comments Yes 0 (1 standard drink = 0.6 oz pur e alcohol) Sex and Gender Information Value Date Recorded Sex Assigned at Not on file Legal Sex Male 1:57 AM LOADING AND UNLOADING SUPERVISOR Gender Identity Male 06/20/2021 2:35 PM LOADING AND UNLOADING SUPERVISOR Sexual Orientation Straight 06/20/2021 2: 35 PM LOADING AND UNLOADING SUPERVISOR documented as of this encounter Medications at [...] on filedocumented in this encounter Care Teams Medical Collections Specialist Relationship Specialty Start Date End Date Roxanna Moreno MD PCP - General 10/21/16 documented as of this encounter
--- OUTSIDE RECORDS SUMMARY | 2024-08-03 15:01 | XMS_ITS | Encounter Summary ---
Author Organization [facility] Healthcare Address [address] [place] [address] Care Team Providers Care Sales Service Executive Name Role Phone Roxanna Moreno MD Primary Care Provider + Encounter Details Date Type Department Care Team (Latest Contact Info) Description 10/12/2017 3:35 PM TRAFFIC SIGN SUPERVISOR - 10/12/2017 4:46 PM TRAFFIC SIGN SUPERVISOR Hospital Encounter [facility] Pain Management [address] [place] [phone] Dayanna Crump MD [address] [place] [address] Discharge Disposition: Discharge to home or self care Social History Tobacco Use Types Packs/Day Years Used Date Smoking Tobacco: Never Alcohol Use Standard Drinks/Week Comments Yes 0 (1 standard drink = 0.6 oz pur e alcohol) Sex and Gender Information Value Date Recorded Sex Assigned at Not on file Legal Sex Male 1:57 AM TRAFFIC SIGN SUPERVISOR Gender Identity Male 06/20/2021 2:35 PM TRAFFIC SIGN SUPERVISOR Sexual Orientation Straight 06/20/2021 2: 35 PM TRAFFIC SIGN SUPERVISOR documented as of this encounter Medications [...] PAIN MGMT INJECTION PROCEDURE 10/12/2017 4:15 PM TRAFFIC SIGN SUPERVISOR pain documented in this encounter Visit Diagnoses Not on filedocumented in this encounter Care Teams Sales Service Executive Relationship Specialty Start Date End Date Roxanna Moreno MD PCP - General 10/21/16 documented as of this encounter
--- OUTSIDE RECORDS SUMMARY | 2024-08-03 15:01 | XMS_ITS | Encounter Summary ---
Author Organization [facility] Healthcare Address [address] [place] [address] Care Team Providers Care Foster Care Worker Name Role Phone Roxanna Moreno MD Primary Care Provider + Encounter Details Date Type Department Care Team (Latest Contact Info) Description 01/03/2017 9:29 AM CDT - 01/03/2017 11:59 PM CDT Hospital Encounter [facility] OP INTERIM [phone] Dayanna Crump MD [address] [facility] [address] [place] [address] Discharge Disposition: Discharge to home or self care Social History Tobacco Use Types Packs/Day Years Used Date Smoking Tobacco: Never Alcohol Use Standard Drinks/Week Comments Yes 0 (1 standard drink = 0.6 oz pur e alcohol) Sex and Gender Information Value Date Recorded Sex Assigned at Not on file Legal Sex Male 1:57 AM BRAKE SPECIALIST Gender Identity Male 06/20/2021 2:35 PM BRAKE SPECIALIST Sexual Orientation Straight 06/20/2021 2: 35 PM BRAKE SPECIALIST documented as of this encounter Medications [...] on filedocumented in this encounter Care Teams Foster Care Worker Relationship Specialty Start Date End Date Roxanna Moreno MD PCP - General 10/21/16 documented as of this encounter
--- OUTSIDE RECORDS SUMMARY | 2024-08-03 15:01 | XMS_ITS | Encounter Summary ---
Author Organization [facility] Facility Care Team Providers Care Lead Investigator Name Role Phone Unavailable Primary Care Provider Unavailabl e Encounter Details Date Type Department Care Team (Late st Contact Info) Description 03/03/2016 2:08 PM CDT - 03/03/2016 11:59 PM CDT Hospital Encounter [facility] Dayanna Carpio MD [address] [place], [place] [id number] Other chronic pain; Other specified mononeuropathies; Dorsalgia Social History Tobacco Use Types Packs/Day Years Used Date Smoking Tobacco: Never Alcohol Use Standard Drinks/Week Comments Yes 0 (1 standard drink = 0.6 oz pur e alcohol) Sex and Gender Information Value Date Recorded Sex Assigned at Not on file Legal Sex Male 1:57 AM OIL OPERATOR Gender Identity Male 06/20/2021 2:35 PM OIL OPERATOR Sexual Orientation Straight 06/20/2021 2: 35 PM OIL OPERATOR documented as of this encounter Medications [...] Name Priority Date/Time Associated Diagnosis Comments XR CONSULT OF OUTSIDE FILMS (PEDS ONLY) Routine 12/19/2016 11:44 PM CDT documented in this encounter Results * XR Interpretation Of Outside Films (12/19/2016 11:44 PM CDT) Anatomical Region Laterality Modality N/A Radiographic Laurel ging 12/19/2016 11:4 4 PM CDT Narrative 12/19/2016 11:44 PM CDT OUTSIDE IMAGES RESIST COATER DEVELOPER, FINAL REPORT ACC# ??Date Time ??Exam [id number] December 19, 2016 18:44:00 [id number] [facility] Ultrasound Reference EXAMINATION: ? Images For Reference Purposes Only IMPRESSION: ? These images are for Reference purposes only and have not been reviewed by [facility] Radiology.? ? ? There will be no report generated by a [facility] Radiologist. Requested By: JOAN TANG ??SANDRA ? Dictated By: ?? OUTSIDE IMAGES RESIST COATER DEVELOPER, ?? on December ??2016 ??7:36P This document has been electronically signed by: OUTSIDE IMAGES RESIST COATER DEVELOPER, ??on December ??2016 ??7:36P [id number] Procedure Note Miscellaneous, Not In File / Provider, MD Fernanda - 01/07/2017 OUTSIDE IMAGES RESIST COATER DEVELOPER, FINAL REPORT ACC# Date Time Exam [id number] December 19, 2016 18:44:00 [id number] [facility] Ultrasound Reference EXAMINATION: ? Images For Reference Purposes Only IMPRESSION: ? These images are for Reference purposes only andhave not been reviewed by [facility] Radiology.? ? ? There will be no report generated by a [facility] Radiologist. Requested By: JOAN TANG PA-C Dictated By: OUTSIDE IMAGES RESIST COATER DEVELOPER, on Dec 19 2016 7:36P This document has been electronically signed by: OUTSIDE IMAGES RESIST COATER DEVELOPER, on Dec 19 2016 7:36P [id number] us Not In File Miscellaneous IMG XR PROCEDURES Janneth l Result documented in this encounter Visit Diagnoses Diagnosis Other chronic pain Other specified mononeuropathies Dorsalgia Pain in thoracic spine documented in this encounter
--- OUTSIDE RECORDS SUMMARY | 2024-08-03 15:01 | XMS_ITS | Encounter Summary ---
Author Organization [facility] Healthcare Address [address] [place] [address] Care Team Providers Care Wig Stylist Name Role Phone Unavailable Primary Care Provider Unavailabl e Encounter Details Date Type Department Care Team (Late st Contact Info) Description 05/12/2011 10:12 AM CDT - 05/14/2011 6:45 PM CDT Hospital Encounter [facility] Social History Tobacco Use Types Packs/Day Years Used Date Smoking Tobacco: Never Assessed Alcohol Use Standard Drinks/Week Comments Yes 0 (1 standard drink = 0.6 oz pur e alcohol) Sex and Gender Information Value Date Recorded Sex Assigned at Not on file Legal Sex Male 1:57 AM POLISHING WHEEL SETTER Gender Identity Male 06/20/2021 2:35 PM POLISHING WHEEL SETTER Sexual Orientation Straight 06/20/2021 2: 35 PM POLISHING WHEEL SETTER documented as of this encounter Plan of Treatment Not on file documented as of this encounter Visit Diagnoses Not on filedocumented in this encounter
--- OUTSIDE RECORDS SUMMARY | 2024-08-03 15:01 | XMS_ITS | Encounter Summary ---
Author Organization [facility] Facility Care Team Providers Care Manager Of Supply Chain Name Role Phone Unavailable Primary Care Provider Unavailabl e Encounter Details Date Type Department Care Team (Late st Contact Info) Description 09/08/2016 12:57 PM FIELD ARTILLERY CREWMEMBER - 09/08/2016 11:59 PM FIELD ARTILLERY CREWMEMBER Hospital Encounter [facility] Benson MD [address] [place] [address] Other chronic pain; Other specified mononeuropathies; Other chest pain; Chronic post-thoracotomy pain; Pain in thoracic spine Social History Tobacco Use Types Packs/Day Years Used Date Smoking Tobacco: Never Alcohol Use Standard Drinks/Week Comments Yes 0 (1 standard drink = 0.6 oz pur e alcohol) Sex and Gender Information Value Date Recorded Sex Assigned at Not on file Legal Sex Male 1:57 AM FIELD ARTILLERY CREWMEMBER Gender Identity Male 06/20/2021 2:35 PM FIELD ARTILLERY CREWMEMBER Sexual Orientation Straight 06/20/2021 2: 35 PM FIELD ARTILLERY CREWMEMBER documented as of this encounter Medications at [...] Diagnosis Other chronic pain Other specified mononeuropathies Other chest pain Chronic post-thoracotomy pain Pain in thoracic spine documented in this encounter
--- OUTSIDE RECORDS SUMMARY | 2024-08-03 15:01 | XMS_ITS | Encounter Summary ---
Author Organization [facility] Healthcare Address [address] [place] [address] Care Team Providers Care Art Model Name Role Phone Roxanna Moreno MD Primary Care Provider + Encounter Details Date Type Department Care Team (Latest Contact Info) Description 08/17/2017 3:15 PM CREW CAR DRIVER - 08/17/2017 11:59 PM CREW CAR DRIVER Hospital Encounter [facility] [phone] Dayanna Crump MD [address] [address] [place] [address] Discharge Disposition: Discharge to home or self care Social History Tobacco Use Types Packs/Day Years Used Date Smoking Tobacco: Never Alcohol Use Standard Drinks/Week Comments Yes 0 (1 standard drink = 0.6 oz pur e alcohol) Sex and Gender Information Value Date Recorded Sex Assigned at Not on file Legal Sex Male 1:57 AM CREW CAR DRIVER Gender Identity Male 06/20/2021 2:35 PM CREW CAR DRIVER Sexual Orientation Straight 06/20/2021 2: 35 PM CREW CAR DRIVER documented as of this encounter Medications at [...] on filedocumented in this encounter Care Teams Art Model Relationship Specialty Start Date End Date Roxanna Moreno MD PCP - General 10/21/16 documented as of this encounter
--- OUTSIDE RECORDS SUMMARY | 2024-08-03 15:02 | XMS_ITS | Encounter Summary ---
Author Organization [facility] Healthcare Address [address] [place] [address] Care Team Providers Care Distribution Center Supervisor Name Role Phone Unavailable Primary Care Provider Unavailabl e Encounter Details Date Type Department Care Team (Late st Contact Info) Description 05/10/2011 12:03 PM CDT - 05/10/2011 11:59 PM CDT Hospital Encounter [facility] Thoracic or lumbosacral neuritis or radiculitis Social History Tobacco Use Types Packs/Day Years Used Date Smoking Tobacco: Never Assessed Alcohol Use Standard Drinks/Week Comments Yes 0 (1 standard drink = 0.6 oz pur e alcohol) Sex and Gender Information Value Date Recorded Sex Assigned at Not on file Legal Sex Male 1:57 AM MANAGER OF ENTERPRISE Gender Identity Male 06/20/2021 2:35 PM MANAGER OF ENTERPRISE Sexual Orientation Straight 06/20/2021 2: 35 PM MANAGER OF ENTERPRISE documented as of this encounter Plan of Treatment Not on file documented as of this encounter Visit Diagnoses Diagnosis Thoracic or lumbosacral neuritis or radiculitis Thoracic or lumbosacral neuritis or radiculitis, unspecified documented in this encounter
--- OUTSIDE RECORDS SUMMARY | 2024-08-03 15:02 | XMS_ITS | Encounter Summary ---
Author Organization [facility] Healthcare Address [address] [place] [address] Care Team Providers Care Green Hide Inspector Name Role Phone Unavailable Primary Care Provider Unavailabl e Encounter Details Date Type Department Care Team (Late st Contact Info) Description 05/09/2011 12:36 PM CDT - 05/09/2011 11:59 PM CDT Hospital Encounter [facility] Pre-operative examination Social History Tobacco Use Types Packs/Day Years Used Date Smoking Tobacco: Never Assessed Alcohol Use Standard Drinks/Week Comments Yes 0 (1 standard drink = 0.6 oz pur e alcohol) Sex and Gender Information Value Date Recorded Sex Assigned at Not on file Legal Sex Male 1:57 AM TOOL MAKER APPRENTICE Gender Identity Male 06/20/2021 2:35 PM TOOL MAKER APPRENTICE Sexual Orientation Straight 06/20/2021 2: 35 PM TOOL MAKER APPRENTICE documented as of this encounter Plan of Treatment Not on file documented as of this encounter Visit Diagnoses Diagnosis Pre-operative examination Unspecified pre-operative examination documented in this encounter
--- OUTSIDE RECORDS SUMMARY | 2024-08-03 15:21 | XMS_ITS | Encounter Summary ---
Author Organization [facility] Address [address] [place] [address] Care Team Providers Care Supervisor Data Processing Name Role Phone Unavailable Primary Care Provider Unavailabl e Reason for Visit * Outpatient Services (Routine) - Closed Specialty Diagnoses / Procedures Referred By Vikyac t Referred To Contact Nuclear Medicine Diagnoses Lumbago Procedures NM BONE SCAN WB + SPECT Davian Dc MD NO ADDRESS ON FILE Referral ID Status Reason Start Date Expiration Date Visits Re quested Visits Authorized [id number] Closed 07/23/2010 01/19/2011 1 1 Encounter Details Date Type Department Care Team (Latest Contact Info) Description 07/23/2010 10:41 AM INTERNATIONAL OPERATIONS MANAGER - 07/23/2010 11:59 PM INTERNATIONAL OPERATIONS MANAGER Hospital Encounter [facility] Nuclear Medicine [address] [facility] [address] [facility] [facility] [place] [phone] Davian Dc MD NO ADDRESS ON FILE Discharge Disposition: Home or Self Care Social History Tobacco Use Types Packs/Day Years Used Date Smoking Tobacco: Never Assessed Sex and Gender Information Value Date Recorded Sex Assigned at Not on file Gender Identity Not on file Sexual Orientation Not on file documented as of this encounter Miscellaneous Notes * Scanned Form - Stl Scanning, Him - 07/28/2010 1:11 PM INTERNATIONAL OPERATIONS MANAGER documented in this encounter Plan of Treatment Not on file documented as of this encounter Procedures Procedure Name Priority Date/Time Associated Diagnosis Comments NM BONE SCAN WB + SPECT Routine 07/23/2010 3:02 PM INTERNATIONAL OPERATIONS MANAGER Lumbago documented in this encounter Results * NM BONE SCAN WB + SPECT (07/23/2010 3:02 PM INTERNATIONAL OPERATIONS MANAGER) Anatomical Region Laterality Modality Nuclear Medicine 07/23/2010 10:5 3 AM INTERNATIONAL OPERATIONS MANAGER Impressions 07/23/2010 3:28 PM INTERNATIONAL OPERATIONS MANAGER IMPRESSION: 1. No evidence of neoplastic disease to the skeleton. 2. Mild periarticular changes consistent with degenerative arthritis and appear appropriate to the age of the patient. 3. Increased uptake at T9 consistent with previous surgical intervention and continued bony repair. This appears benign. 4. Lumbar spine appears essentially intact. There is only very, very subtle uptake at L1 and L2 posterior spinous processes. This may reflect either mild trauma or ligamentous insertion injury. Dose: 23 mCi Tc 99m MDP Narrative 07/23/2010 3:28 PM INTERNATIONAL OPERATIONS MANAGER Bone scan, whole body Bone SPECT History: 29 year-old with low back pain. 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 MRI showed a compression fracture in low back. Imaging: Whole body images appear essentially normal. There is a subtle abnormality at T9. There maybe mild degenerative changes in the shoulders hips and knees. The kidneys appear normal. SPECT imaging: Tomographic imaging reveals modest uptake involving the T9 vertebral body. There may be slightly greater uptake at T8 as well. Uptake at T9 may subtly extend into the right pedicle. Uptake within the lumbar spine suggests there may be Berdy, very subtle uptake involving the posterior spinous process of L1 and L2. Procedure Note Raghu Ware MD - 07/23/2010 Bone scan, whole body Bone SPECT History: 29 year-old with low back pain. 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 MRI showed a compression fracture in low back. Imaging: Whole body images appear essentially normal. There is a subtle abnormality at T9. There maybe mild degenerative changes in the shoulders hips and knees. The kidneys appear normal. SPECT imaging: Tomographic imaging reveals modest uptake involving the T9 vertebral body. There may be slightly greater uptake at T8 as well. Uptake at T9 may subtly extend into the right pedicle. Uptake within the lumbar spine suggests there may be Berdy, very subtle uptake involving the posterior spinous process of L1 and L2. IMPRESSION IMPRESSION: 1. No evidence of neoplastic disease to the skeleton. 2. Mild periarticular changes consistent with degenerative arthritis and appear appropriate to the age of the patient. 3. Increased uptake at T9 consistent with previous surgical intervention and continued bony repair. This appears benign. 4. Lumbar spine appears essentially intact. There is only very, very subtle uptake at L1 and L2 posterior spinous processes. This may reflect either mild trauma or ligamentous insertion injury. Dose: 23 mCi Tc 99m MDP Davian Dc MD NM ORDERABLES documented in this encounter Visit Diagnoses Diagnosis Lumbago documented in this encounter
--- OUTSIDE RECORDS SUMMARY | 2024-08-03 15:21 | XMS_ITS | Clinical Summary ---
Author Organization [facility] Administrative Offices Address [address] [place] [address] Care Team Providers Care Garment Parts Cutter Hand Name Role Phone Unavailable Primary Care Provider Unavailabl e Social History Tobacco Use Types Packs/Day Years Used Date Smoking Tobacco: Never Assessed Sex and Gender Information Value Date Recorded Sex Assigned at Not on file Gender Identity Not on file Sexual Orientation Not on file Plan of Treatment Health Maintenance Due Date Last Done Comments DTAP/TDAP/TD VACCINES (1 - Tdap) 1997 HEPATITIS B VACCINES (1 of 3 - 19+ 3-dose series) 1997 COLORECTAL SCREENING 2023 Colorectal Cancer Screening 2023 FIT-DNA Q 3 years 2023 FIT/FOBT Q 1 year 2023 Flex Sig/CT Colonography Q 5 years 2023 INFLUENZA VACCINE (#1) 2024 HPV VACCINES Aged Out No longer eligi ble based on patient's age to complete this topic PNEUMOCOCCAL VACCINE 0-64 YEARS Aged Out No longer eligible based on patient's age to complete this topic
--- OUTSIDE RECORDS SUMMARY | 2024-08-03 15:21 | XMS_ITS | Encounter Summary ---
Author Organization [facility] Address [address] [place] [address] Care Team Providers Care Beef Cattle Specialist Name Role Phone Unavailable Primary Care Provider Unavailabl e Reason for Visit * Outpatient Services (Routine) - Closed Specialty Diagnoses / Procedures Referred By Vikyac t Referred To Contact Nuclear Medicine Diagnoses Lumbago Procedures NM BONE SCAN WB + SPECT Davian Dc MD NO ADDRESS ON FILE Referral ID Status Reason Start Date Expiration Date Visits Re quested Visits Authorized [id number] Closed 07/23/2010 01/19/2011 1 1 Encounter Details Date Type Department Care Team (Latest Contact Info) Description 07/23/2010 1:47 PM ASSEMBLER FINGER BUFFS - 07/23/2010 11:59 PM ASSEMBLER FINGER BUFFS Hospital Encounter [facility] Nuclear Medicine S [facility] [address] [place] [phone] Davian Dc MD NO ADDRESS ON FILE Discharge Disposition: Home or Self Care Social History Tobacco Use Types Packs/Day Years Used Date Smoking Tobacco: Never Assessed Sex and Gender Information Value Date Recorded Sex Assigned at Not on file Gender Identity Not on file Sexual Orientation Not on file documented as of this encounter Plan of Treatment Not on file documented as of this encounter Procedures Procedure Name Priority Date/Time Associated Diagnosis Comments NM BONE SCAN WB + SPECT Routine 07/23/2010 3:02 PM ASSEMBLER FINGER BUFFS Lumbago documented in this encounter Results * NM BONE SCAN WB + SPECT (07/23/2010 3:02 PM ASSEMBLER FINGER BUFFS) Anatomical Region Laterality Modality Nuclear Medicine 07/23/2010 10:5 3 AM ASSEMBLER FINGER BUFFS Impressions 07/23/2010 3:28 PM ASSEMBLER FINGER BUFFS IMPRESSION: 1. No evidence of neoplastic disease [...] Tc 99m MDP Narrative 07/23/2010 3:28 PM ASSEMBLER FINGER BUFFS Bone scan, whole body Bone SPECT History: [...] ORDERABLES documented in this encounter Visit Diagnoses Not on filedocumented in this encounter
== END 2024-07-29 06:54 | disposition home or self-care (01) ==
PROVIDERS: PCP Family Medicine; Visit Provider Neurological Surgery
DX: D49.2 Neoplasm of unspecified behavior of bone, soft tissue, and skin (principal); M51.44 Schmorl's nodes, thoracic region; M96.842 Postprocedural seroma of a musculoskeletal structure following a musculoskeletal system procedure; Z98.890 Other specified postprocedural states
CPT/HCPCS: 72157; A9577

== ENCOUNTER 2024-11-13 08:11 | Outpatient (CLI) | payer OTHER, SELFPAY ==
--- NOTE | ~2024-11-13 | US_ITS ---
US abdomen limited INDICATION: Right upper quadrant pain and nausea PROCEDURE: Realtime right upper abdominal ultrasound. COMPARISON: No prior studies for comparison. FINDINGS: The pancreas is normal without focal mass or pancreatic ductal dilation. Liver echotexture is heterogeneous. There is a nodular liver surface, compatible with cirrhosis. There is normal dire ctional flow in the portal vein. The gallbladder is normal without stones, gallbladder wall thickening or pericholecystic fluid. Comm on bile duct measures 5 mm. No sonographic Devlin's sign. IMPRESSION: 1: Cirrhosis. Reviewed, dictated and finalized at location A. IMPRESSION: 1: Cirrhosis.
== END 2024-11-13 08:12 | disposition home or self-care (01) ==
LOC: GOSHIMG 08:12
PROVIDERS: PCP Family Medicine; Visit Provider Family Medicine
DX: R10.11 Right upper quadrant pain (principal); K74.60 Unspecified cirrhosis of liver
CPT/HCPCS: 76705

== ENCOUNTER 2024-12-12 07:18 | Outpatient (CLI) | payer OTHER, SELFPAY ==
--- NOTE | ~2024-12-12 | NM_ITS ---
History: Nausea and vomiting Interpretation: Following intravenous administration of 5.0 mCi. of technetium 99 Choletec, serial im ages obtained reveal prompt concentration by the liver which is normal in size and without any focal abnormalities. There is normal excretion from the liver. The gallbladder is visualized by 20 minute s. At 60 minutes the patient intravenously received 8 ounces Ensure. The patient was imaged for approxim ately the next 40 minutes. Regions of interest were drawn about the gallbladder and background and ga llbladder ejection fraction calculated. Small bowel visualized during the ejection fraction calculati on images. The gallbladder ejection fraction measures 99%. ( GBEF will measure > or = 49%, in 95% of normals. GBEF will measure > or= 38% in 99% of normals ) Impression: Normal hepatobiliary scan. No evidence of cystic duct or common bile duct obstruction. This effecti vely excludes acute cholecystitis. Normal gallbladder ejection fraction of 99%. Mercy et al.,Sincalide-Stimulated Cholescintigraphy: A Multicenter Investigation to Determine Opti mal Infusion Methodology and Gallbladder Ejection Fraction Normal Values. JNM. Vol 51. No.2. Sep 2009 . Reviewed, dictated and finalized at location . Impression: Normal hepatobiliary scan. No evidence of cystic duct or common bile duct obst ruction. This effectively excludes acute cholecystitis. Normal gallbladder ejection fraction of 99%. Mercy et al.,Sincalide-Stimulated Cholescintigraphy: A Multicenter Investiga tion to Determine Optimal Infusion Methodology and Gallbladder Ejection Fractio n Normal Values. JNM. Vol 51. No.2. Sep 2009.
--- OUTSIDE RECORDS SUMMARY | 2024-12-12 07:24 | XMS_ITS | Referral Summary ---
Author Organization [facility] Address [address] [place] [address] Care Team Providers Care Domestic Technician Name Role Phone Roxanna Moreno MD Primary Care Provider + Dayanna Crump MD Unavailable [phone] Encounters Date Type Department Care Team Description 11/15/2024 12:40 PM CDT Telemedicine [facility] ENT [address] [place] [address] Medical Office Building [address] [id number] Karla Delatorre MD Acute recurrent maxillary sinusitis (Primary Dx) 11/15/2024 6:29 AM CDT - 11/15/2024 11:59 PM CDT Hospital Encounter [address] [address] Acute recurrent sinusitis, unspecified location Discharge Disposition: Discharge to home or self care 11/14/2024 Telephone [facility] [address] [place] [address] Yolis Doran 10/04/2024 2:00 PM PIGEON FANCIER Office Visit [facility] ENT [address] [place] [address] Medical Office Building [address] [address] Karla Delatorre MD Acute recurrent sinusitis, unspecified location (Primary Dx); Nasal obstruction; S/P FESS (functional endoscopic sinus surgery) from Last 3 Months Allergies No known active allergies Medications irbesartan (AVAPRO) 300 mg tabletIndicatio ns:hypertension Take 1 tablet (300 mg total) by mouth every morning 3 8 Active TENS units (TENS 502) device TENS unit with 2-4 electrodes 1 Device 9 Active Voltaren Arthritis Pain 1 % gel [...] Wegovy 2.4 mg/0.75 mL auto-injector 3 Active nortriptyline (PAMELOR) 50 mg capsule Take 1 capsule (50 mg total) by mouth 5 Active sertraline (ZOLOFT) 100 mg tablet Take 1 tablet (100 mg total) by mouth daily 5 Active fluticasone propionate (FLONASE) 50 mcg/actuation nasal spray Administer 1 spray into each nostril 2 (two) times a day 1 each 11 5 Active Hospital, Clinic, or Other Facility Administered [...] (04/03/2020): Added automatically from request for surgery [id number] Carpal tunnel syndrome of right wrist 04/02/2020 Overview (04/02/2020): Added automatically from request for surgery [id number] Other chronic pain 02/07/2018 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 Myofascial pain 02/07/2018 Neck pain 03/08/2017 Cervical radiculopathy 03/08/2017 Inguinal pain 12/16/2016 Back pain 10/14/2015 Arthritis 10/14/2015 Effusion of joint of multiple sites 10/14/2015 Visual impairment 10/14/2015 Encounter for preventive health examination 03/14 Immunizations Immunization Administration Dates Next Due Influenza, Quadrivalent, Spl [...] on file Legal Sex Male 1:57 AM PIGEON FANCIER Gender Identity Male 06/20/2021 2:35 PM PIGEON FANCIER Sexual Orientation Straight 06/20/2021 2: 35 PM PIGEON FANCIER Last Filed Vital Signs Vital Sign Reading Time Taken Comments Blood Pressure 158/99 07/21/2023 8:24 AM PIGEON FANCIER Pulse 72 07/21/2023 8:24 AM PIGEON FANCIER Temperature 36.4 C (97.6 F) 07/21/2023 7:32 AM PIGEON FANCIER Respiratory Rate 16 07/21/2023 8:15 AM PIGEON FANCIER Oxygen Saturation 98% 07/21/2023 8:24 AM PIGEON FANCIER Inhaled Oxygen Concentration - - Weight 123.8 kg (273 lb) 10/04/2024 1:59 PM PIGEON FANCIER Height 180.3 cm (5' 11 ) 10/04/2024 1:59 PM PIGEON FANCIER Body Mass Index 38.08 10/04/2024 1:59 PM PIGEON FANCIER Plan of Treatment Not on file Goals Goal Patient Goal Type Associated Problems Recent Progress Patient-Stated? Author CCM Chronic Pain Care Plan Chronic Care Management No change(07/21 7:32 AM PIGEON FANCIER) No Saran Quiñones, RN Note: Problem: Chronic Pain Goals: 1. Minimize further functional decline 2. Maximize quality of life 3. Control pain Strategies: - Activity/exercise program recommendation - Conservative stepwise pain medicine strategy with multi-disciplinary approach - Recommend healthy lifestyle strategies and compensatory methods as needed Reduce the likelihood of falling Lifestyle No change(07/21 7:32 AM PIGEON FANCIER) No Kenyatta Jackson, MABLE Note: Below are four things you [...] stairs Contact your local community or [facility] [place] for information on exercise, fall prevention programs, or options for improving home safety. Medical Devices Implanted Type Area Die Cast Technician Device Identifier Shelf Expiration Date Model / Serial / Lot Spinal Cord Stimulator- Implanted:11/2010 (Quantity not on file) Spinal Cord Stimulator Back [employer] Neuro Procedures Procedure Name Priority Date/Time Associated Diagnosis Comments CT SINUS STEALTH WO CONTRAST Schedule Routine, Read Routine (OP Routine) 11/15/2024 6:42 AM CDT Acute recurrent sinusitis, unspecified location from Last 3 Months Results * CT Sinus Stealth WO Contrast (11/15/2024 6:42 AM CDT) Anatomical Region Laterality Modality Head N/A Computed Tomogra phy 11/15/2024 12:3 1 PM CDT Narrative 11/15/2024 12:44 PM CDT EXAM DESCRIPTION: CT SINUS STEALTH WO CONTRAST REASON FOR STUDY: recurrent acute sinusitis Bilateral maxillary pressure and pain Prev surgery to sinuses about 10 - 12 years ago TECHNIQUE: Noncontrast scanning through the paranasal sinuses using bone algorithm. Reconstructed MPR images reviewed. All images stored on PACS. Automated exposure control was used as a dose optimization technique for this examination. COMPARISON: None available. FINDINGS: No pulmonary secretions air-fluid levels in the paranasal sinuses without CT evidence for acute sinusitis. The bilateral frontal sinuses are predominantly clear. The frontoethmoidal recesses are also predominantly clear. No significant mucosal thickening in bilateral ethmoid air cells. Right and left sphenoid sinus The patient is on both sides. Pneumatized lateral recesses on both sides. Partially pneumatized anterior clinoid process on both sides. Both sphenoid sinuses, sphenoid ostia and sphenoethmoidal recess are predominantly clear. Right maxillary sinus with minimal mucosal thickening along the floor. Status post right maxillary antrostomy. Approximate the 3.5 mm residual uncinate process. There is a Taj cell. Left maxillary sinus is predominantly clear. Approximately 2.3 mL of residual uncinate process. There is a Taj cell. Old nasal bone deformity. Nasal septum is almost in the midline. The nasal cavity is predominantly clear. A few opacified right mastoid air cells. Temporomandibular joints are symmetrically placed. The soft tissues are suboptimally evaluated on this unenhanced sinus CT. The bilateral globes are symmetric. The dental amalgam related streak artifact limits the assessment of the adjacent structures including the oral cavity and oropharynx. IMPRESSION: 1. There are postoperative changes as above. 2. Minor inflammatory changes in the paranasal sinuses. No CT evidence for acute sinusitis. 3. Additional findings as described. THIS IS AN ELECTRONICALLY VERIFIED FINAL REPORT 11/15/2024 12:44 PM - Electronically signed by Tee Mathur D.O. AP: AP Report ID: [id number] Reading Location: [id number] Procedure Note Tee Mathur, DO - 11/15/2024 EXAM DESCRIPTION: CT SINUS STEALTH WO CONTRAST REASON FOR STUDY: recurrent acute sinusitis Bilateral maxillary pressure and pain Prev surgery to sinuses about 10 -12 years ago TECHNIQUE: Noncontrast scanning through the paranasal sinuses using bone algorithm. Reconstructed MPR images reviewed. All images stored on PACS. Automated exposure control was used as a dose optimization technique forthis examination. COMPARISON: None available. FINDINGS: No pulmonary secretions air-fluid levels in the paranasal sinuses withoutCT evidence for acute sinusitis. The bilateral frontal sinuses are predominantly clear. Thefrontoethmoidal recesses are also predominantly clear. No significant mucosal thickening in bilateral ethmoid air cells. Right and left sphenoid sinus The patient is on both sides. Pneumatized lateral recesses on both sides. Partially pneumatized anterior clinoid process on both sides. Bothsphenoid sinuses, sphenoid ostia and sphenoethmoidal recess are predominantlyclear. Right maxillary sinus with minimal mucosal thickening along the floor.Status post right maxillary antrostomy. Approximate the 3.5 mm residual uncinate process. There is a Taj cell. Left maxillary sinus is predominantly clear. Approximately 2.3 mL of residual uncinate process. There is aHaller cell. Old nasal bone deformity. Nasal septum is almost in the midline. Thenasal cavity is predominantly clear. A few opacified right mastoid air cells. Temporomandibular joints are symmetrically placed. The soft tissues are suboptimally evaluated on this unenhanced sinus CT. The bilateral globes are symmetric. The dentalamalgam related streak artifact limits the assessment of the adjacent structures including the oral cavity and oropharynx. IMPRESSION: 1. There are postoperative changes as above. 2. Minor inflammatory changes in the paranasal sinuses. No CT evidencefor acute sinusitis. 3. Additional findings as described. THIS IS AN ELECTRONICALLY VERIFIED FINAL REPORT 11/15/2024 12:44 PM - Electronically signed by Tee Mathur D.O. AP: RUBENS Report ID: [id number] Reading Location: [id number] Karla Delatorre MD IMG CT PROCEDURES Final Res ult from Last 3 Months Insurance [facility] CHOICE PLUS [facility] HMO/PPO Address: [address] [address] [place] [address] [facility] CHOICE PLUS [facility] HMO/PPO Address: [address] [address] [place] [address] [facility] [employer] [facility] HMO/PPO Address: [address] [address] [place] [address] [facility] [employer] [facility] HMO/PPO Address: [facility] [address] [place] [address] Care Teams Domestic Technician Relationship Specialty Start Date End Date Roxanna Moreno MD PCP - General 10/21/16 Dayanna Crump MD Consulting Physician Pain Management 01/30/23
--- OUTSIDE RECORDS SUMMARY | 2024-12-12 07:24 | XMS_ITS | Encounter Summary ---
Author Organization [facility] Healthcare Address [address] [place] [address] Care Team Providers Care Print Operator Name Role Phone Roxanna Moreno MD Primary Care Provider + Dayanna Crump MD Unavailable [phone] Reason for Visit * Reason Onset Date Comments Pre-Surgical Call 04/17/2019 Encounter Details Date Type Department Care Team (Late st Contact Info) Description 04/17/[address] [place] [address] Joyce Briseno RN Pre-Surgical Call Social History Tobacco Use Types Packs/Day Years Used Date Smoking Tobacco: Never Smokeless Tobacco: Never Alcohol Use Standard Drinks/Week Comments Yes 0 (1 standard drink = 0.6 oz pur e alcohol) Sex and Gender Information Value Date Recorded Sex Assigned at Not on file Legal Sex Male 1:57 AM DIRECTOR OF PEOPLE Gender Identity Male 06/20/2021 2:35 PM DIRECTOR OF PEOPLE Sexual Orientation Straight 06/20/2021 2: 35 PM DIRECTOR OF PEOPLE documented as of this encounter Plan of Treatment Not on file documented as of this encounter Visit Diagnoses Not on filedocumented in this encounter Care Teams Print Operator Relationship Specialty Start Date End Date Roxanna Moerno MD PCP - General 10/21/16 Dayanna Crump MD Consulting Physician Pain Management 01/30/23 documented as of this encounter
--- OUTSIDE RECORDS SUMMARY | 2024-12-12 07:24 | XMS_ITS | Encounter Summary ---
Author Organization [facility] Healthcare Address [address] [place] [address] Care Team Providers Care Plant Assigner Name Role Phone Roxanna Moreno MD Primary Care Provider + Dayanna Crump MD Unavailable [phone] Reason for Visit * Reason Onset Date Comments Pre Arrival 02/18/2021 Encounter Details Date Type Department Care Team (Late st Contact Info) Description 02/18/2021 Telephone [facility] [place] [id number] [facility] 1st [place] [address] Larissa Goncalves, MABLE Pre Arrival Social History Tobacco Use Types Packs/Day Years Used Date Smoking Tobacco: Never Smokeless Tobacco: Former Quit: 05/2011 Alcohol Use Standard Drinks/Week Comments Yes 0 (1 standard drink = 0.6 oz pur e alcohol) RARE 3-4 q year Sex and Gender Information Value Date Recorded Sex Assigned at Not on file Legal Sex Male 1:57 AM METAL WEIGHER Gender Identity Male 06/20/2021 2:35 PM METAL WEIGHER Sexual Orientation Straight 06/20/2021 2: 35 PM METAL WEIGHER documented as of this encounter Plan of Treatment Not on file documented as of this encounter Goals Goal Patient Goal Type Associated Problems Recent Progress Patient-Stated? Author [facility] Chronic Pain Care Plan Chronic Care Management No change(07/21 7:32 AM METAL WEIGHER) No Saran Quiñones, RN Note: Problem: Chronic Pain Goals: 1. Minimize further functional decline 2. Maximize quality of life 3. Control pain Strategies: - Activity/exercise program recommendation - Conservative stepwise pain medicine strategy with multi-disciplinary approach - Recommend healthy lifestyle strategies and compensatory methods as needed Reduce the likelihood of falling Lifestyle No change(07/21 7:32 AM METAL WEIGHER) Kenyatta Carroll RN Note: Below are four things you [...] on filedocumented in this encounter Care Teams Plant Assigner Relationship Specialty Start Date End Date Roxanna Moreno MD PCP - General 10/21/16 Dayanna Crump MD Consulting Physician Pain Management 01/30/23 documented as of this encounter
--- OUTSIDE RECORDS SUMMARY | 2024-12-12 07:24 | XMS_ITS | Clinical Summary ---
Author Organization [facility] Address [address] [place] [address] Care Team Providers Care Turret Press Operator Name Role Phone Roxanna Moreno MD Primary Care Provider + Dayanna Crump MD Unavailable [phone] Allergies No known active allergies Medications irbesartan [...] 2 (two) times a day 1 each 5 Active Hospital, Clinic, or Other Facility [...] (04/03/2020): Added automatically from request for surgery [id number] Carpal tunnel syndrome of right wrist 04/02/2020 Overview (04/02/2020): Added automatically from request for surgery [id number] Other chronic pain 02/07/2018 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 ENT [address] [facility] Medical Office Building [address] [place] [address] Karla Delatorre MD Acute recurrent maxillary sinusitis (Primary Dx) 11/15/2024 6:29 AM CDT - 11/15/2024 11:59 PM CDT Hospital Encounter [facility] [address] [place] [address] Acute recurrent sinusitis, unspecified location Discharge Disposition: Discharge to home or self care 11/14/2024 Telephone [facility] [address] [place] [address] Naljustina, Yolis D. 10/04/2024 2:00 PM BROWNFIELD REDEVELOPMENT SPECIALIST Office Visit [facility] ENT [address] [facility] Medical Office Building [address] [place] [address] Karla Delatorre MD Acute recurrent sinusitis, unspecified location (Primary Dx); Nasal obstruction; S/P FESS (functional endoscopic sinus surgery) from Last 3 Months Immunizations Immunization Administration Dates Next Due Influenza, [...] on file Legal Sex Male 1:57 AM BROWNFIELD REDEVELOPMENT SPECIALIST Gender Identity Male 06/20/2021 2:35 PM BROWNFIELD REDEVELOPMENT SPECIALIST Sexual Orientation Straight 06/20/2021 2: 35 PM BROWNFIELD REDEVELOPMENT SPECIALIST Obstetrics History Last Filed Vital Signs Vital Sign Reading Time Taken Comments Blood Pressure 158/99 07/21/2023 8:24 AM BROWNFIELD REDEVELOPMENT SPECIALIST Pulse 72 07/21/2023 8:24 AM BROWNFIELD REDEVELOPMENT SPECIALIST Temperature 36.4 C (97.6 F) 07/21/2023 7:32 AM BROWNFIELD REDEVELOPMENT SPECIALIST Respiratory Rate 16 07/21/2023 8:15 AM BROWNFIELD REDEVELOPMENT SPECIALIST Oxygen Saturation 98% 07/21/2023 8:24 AM BROWNFIELD REDEVELOPMENT SPECIALIST Inhaled Oxygen Concentration - - Weight 123.8 kg (273 lb) 10/04/2024 1:59 PM BROWNFIELD REDEVELOPMENT SPECIALIST Height 180.3 cm (5' 11 ) 10/04/2024 1:59 PM BROWNFIELD REDEVELOPMENT SPECIALIST Body Mass Index 38.08 10/04/2024 1:59 PM BROWNFIELD REDEVELOPMENT SPECIALIST Plan of Treatment Health Maintenance Due Date Last Done Comments Colon Cancer Screening-Colonoscopy 1978 Depression Screening 1978 Hepatitis C Screening 1978 DTaP/Tdap/Td Vaccine (1 - Tdap) 1989 Hepatitis B Screening 1996 Regular Well Visit/Exam 18-64 1996 Covid-19 Vaccine ( season) 2024 06/18/2021, 10/20/2020, 09/16/2020 Influenza Vaccine (Season Ended) 2025 05/15/2023, 05/27/2021, 05/14/2020, Additional history exists HPV Vaccines Aged Out No longer eligi ble based on patient's age to complete this topic Pneumococcal vaccine <65 Aged Out No longer eligible based on patient's age to complete this topic Goals Goal Patient Goal Type Associated Problems Recent Progress Patient-Stated? Author CCM Chronic Pain Care Plan Chronic Care Management No change(07/21 7:32 AM BROWNFIELD REDEVELOPMENT SPECIALIST) No Saran Quiñones, MABLE Note: Problem: Chronic Pain Goals: 1. Minimize further functional decline 2. Maximize quality of life 3. Control pain Strategies: - Activity/exercise program recommendation - Conservative stepwise pain medicine strategy with multi-disciplinary approach - Recommend healthy lifestyle strategies and compensatory methods as needed Reduce the likelihood of falling Lifestyle No change(07/21 7:32 AM BROWNFIELD REDEVELOPMENT SPECIALIST) No Kenyatta Jackson RN Note: Below are four things you [...] on stairs Contact your local community or [facility] for information on exercise, fall prevention programs, or options for improving home safety. Medical Devices Implanted Type Area Band Splicer Device Identifier Shelf Expiration Date Model / [...] Tee Mathur D.O. AP: AP Report ID: [id number] Reading Location: [id number] Procedure Note Tee Mathur, DO - 11/15/2024 [...] Tee Mathur D.O. AP: RUBENS Report ID: [id number] Reading Location: [place] [address] Karla Delatorre MD IMAnahi CT PROCEDURES Final Res ult from Last 3 Months Insurance [facility] CHOICE PLUS [facility] CHOICE PLUS Care Teams Turret Press Operator Relationship Specialty Start Date End Date Roxanna Moreno MD PCP - General 10/21/16 Dayanna Crump MD Consulting Physician Pain Management 01/30/23
--- OUTSIDE RECORDS SUMMARY | 2024-12-12 07:24 | XMS_ITS | Clinical Summary ---
Author Organization [facility] Administrative Offices Address [address] [place] [phone] Care Team Providers Care Channel Installer Name Role Phone Unavailable Primary Care Provider Unavailabl e Social History Tobacco Use Types Packs/Day Years Used Date Smoking Tobacco: Never Assessed Sex and Gender Information Value Date Recorded Sex Assigned at Not on file Legal Sex Male 5:56 AM LARRY CAR OPERATOR Gender Identity Not on file Sexual Orientation [...] on patient's age to complete this topic Insurance [facility] [id number]
--- OUTSIDE RECORDS SUMMARY | 2024-12-12 07:24 | XMS_ITS | Encounter Summary ---
Author Organization [facility] Healthcare Address [address] [place] [address] Care Team Providers Care Fence Rider Name Role Phone Roxanna Moreno MD Primary Care Provider + Dayanna Crump MD Unavailable [phone] Reason for Visit * Reason Onset Date Comments precall 03/23/2020 Encounter Details Date Type Department Care Team (Late st Contact Info) Description 03/23/2020 Telephone [facility] [place] [id number] [address] Lupe Awan RN precall Social History Tobacco Use Types Packs/Day Years Used Date Smoking Tobacco: Never Smokeless Tobacco: Former Quit: 05/2011 Alcohol Use Standard Drinks/Week Comments Yes 0 (1 standard drink = 0.6 oz pur e alcohol) Sex and Gender Information Value Date Recorded Sex Assigned at Not on file Legal Sex Male 1:57 AM SEARCH DIRECTOR Gender Identity Male 06/20/2021 2:35 PM SEARCH DIRECTOR Sexual Orientation Straight 06/20/2021 2: 35 PM SEARCH DIRECTOR documented as of this encounter Plan of Treatment Not on file documented as of this encounter Goals Goal Patient Goal Type Associated Problems Recent Progress Patient-Stated? Author CCM Chronic Pain Care Plan Chronic Care Management No change(07/21 7:32 AM SEARCH DIRECTOR) No Saran Quiñones, RN Note: Problem: Chronic Pain Goals: 1. Minimize further functional decline 2. Maximize quality of life 3. Control pain Strategies: - Activity/exercise program recommendation - Conservative stepwise pain medicine strategy with multi-disciplinary approach - Recommend healthy lifestyle strategies and compensatory methods as needed documented as of this encounter Visit Diagnoses Not on filedocumented in this encounter Care Teams Fence Rider Relationship Specialty Start Date End Date Roxanna Moreno MD PCP - General 10/21/16 Dayanna Crump MD Consulting Physician Pain Management 01/30/23 documented as of this encounter
--- OUTSIDE RECORDS SUMMARY | 2024-12-12 07:24 | XMS_ITS | Clinical Summary ---
Author Organization [facility] Address [address] [place] [address] Care Team Providers Care Pre K Lead Teacher Name Role Phone Roxanna Moreno MD Primary Care Provider [phone] Source Comments [facility],non-owned Affiliates and Associated Physician Practices is amultiple site organization consisting of ambulatory clinics and hospital sitesin [place], [place], [place] and [place]. This disclosure is being madepursuant to the Care Everywhere program and may not contain all information available regarding this patient. Last updated 18.[facility] Allergies No known active allergies Medications * Be aware that medications may not be up to date on this document. Alwaysverify current medications with the patient. ondansetron (ZOFRAN) 4 MG tablet Take 1 Tab by mouth every 4 hours as needed for Nausea/Vomit ing. 10 Tab 0 02/04/2013 Active hydrocodone-sacha taminophen 5-500 MG tablet Take 1-2 Tabs by [...] at Not on file Legal Sex Male 9:08 AM CDT Gender Identity Not on file Sexual Orientation Not on file Last Filed Vital Signs Vital Sign Reading Time Taken Comments Blood Pressure 132/85 02/04/2013 12:33 PM CDT Pulse 80 02/04/2013 12:33 PM CDT Temperature 36.9 C (98.4 F) 02/04/2013 12:33 PM CDT Respiratory Rate 18 02/04/2013 12:33 PM CDT [...] of 3 - 19+ 3-dose series) 1997 COVID-19 VACCINE (1 - 2023-2 5 season) 2024 DEPRESSION SCREENING 08/14/2024 INFLUENZA VACCINE (Season Ended) 2025 ZOSTER VACCINE (1 of 2) 2028 HIB VACCINE Aged Out No longer eligi ble based on patient's age to complete this topic HPV VACCINE Aged Out No longer eligi ble based on patient's age to complete this topic MENINGOCOCCAL (Group B) VACC INE SHARED DECISION-MAKING Aged Out No longer eligibl e based on patient's age to complete this topic MENINGOCOCCAL GROUPS A/C/Y/W VACCINE Aged Out No longer eligible b ased on patient's age to complete this topic PNEUMOCOCCAL VACCINE Aged Out No long er eligible based on patient's age to complete this topic Insurance [employer] Member Subscriber Plan / Payer (Ef fective 2012-Present) Name:Juan Pro Jeremias Member ID:Not on file Relation to Subscriber:Spouse Name:JACQUELYN PRO Date of :1974 (Home) Address: [address] [place] [address] Payer ID:[id number] (NAIC) Type:[facility] Address: Address: [address] [place] [id number] [employer] SELF PAY NO INSURANCE Member Subscriber Plan / Payer (Ef fective for All Dates) Name:Juan Pro Member ID:Not on file Relation to Subscriber:Not on file Name:JUAN PRO Subscriber ID:Not on file Address: [address] [place] [address] Payer ID:Not on file Group ID:Not on file Type:Self Pay Address: [place], [place] [employer] SELF PAY NO INSURANCE Member Subscriber Plan / Payer (Ef fective for All Dates) Name:Juan Pro Member ID:Not on file Relation to Subscriber:Not on file Name:JUAN PRO Subscriber ID:Not on file Address: [address] [place] [address] Payer ID:Not on file Group ID:Not on file Type:Self Pay Address: [place], [place] SELF PAY NO INSURANCE Member Subscriber Plan / Payer (Ef fective for All Dates) Name:Juan Por Jeremias Member ID:Not on file Relation to Subscriber:Not on file Name:JUAN PRO Subscriber ID:Not on file Address: [address] [place] [address] Payer ID:Not on file Group ID:Not on file Type:Self Pay Address: [place], [place] Care Teams Pre K Lead Teacher Relationship Specialty Start Date End Date Roxanna Moreno MD [address] [place] [address] PCP - General Family Medicine 02/04/13
== END 2024-12-12 07:19 | disposition home or self-care (01) ==
PROVIDERS: PCP Family Medicine; Visit Provider Nurse Practitioner Family
DX: R11.2 Nausea with vomiting, unspecified (principal); R10.11 Right upper quadrant pain
CPT/HCPCS: 78226; A9537

== ENCOUNTER 2025-02-10 14:57 | Emergency (ER) | payer OTHER, SELFPAY ==
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
[2025-02-10 15:03] VITALS: BP 144/102; PULSE 79; RESP 16; TEMP 36.4; O2SAT 97
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
== END 2025-02-10 15:44 | disposition home or self-care (01) ==
PROVIDERS: Emergency Provider Nurse Practitioner; PCP Family Medicine
DX: S16.1XXA Strain of muscle, fascia and tendon at neck level, initial encounter (principal); V43.52XA Car driver injured in collision with other type car in traffic accident, initial encounter
CPT/HCPCS: 72040; 99213; G0463

== ENCOUNTER 2025-03-17 00:31 | Day surgery (SDC) | payer OTHER, SELFPAY ==
[2025-02-26 11:42] VITALS: BMI 36.3
--- OUTSIDE RECORDS SUMMARY | 2025-03-17 00:33 | XMS_ITS | Continuity of Care Document ---
Author Name [facility] Organization [facility] Care Team Providers Care Geophysicist Name Role Phone [facility] Unavailable Unavailable Problems Combined list of problems from Department of Defense and Veterans Affairs facilities. It does not include entries that were removed or entered in error. Problem Status Onset Date Problem Type Date of Resolution Comments Source visit for: screening exam pulmonary tuberculosis Inactive Condition ppd read - zero mm DoD HYPERLIPIDEMIA Active Condition [facility] Patient Education - Self-Examination Of Testes Active Condition [facility] Anticipatory Guidance: Inadequate Physical Activity Inactive Condition [facility] Patient Education - Dietary Inactive Condition [facility] Patient Counseling: Inactive Condition [facility] ESSENTIAL HYPERTENSION BENIGN Active Condition [facility] visit for: services physical Inactive Condition [facility] Patient Education - HIV Active Condition [facility] visit for: screening exam lipoid disorders Inactive Condition [facility] sexually active high-risk Active Condition [facility] Patient Education - Alcohol Inactive Condition [facility] Anticipatory Guidance: Unsafe Sexual Practices Active Condition [facility] visit for: administrative purpose Inactive Condition [facility] BONE NEOPLASM, BENIGN - OSTEOID OSTEOMA Active Condition Recommend pt talk w/ Dr Lozada re: change in pain. Rec cont percocet and wt lifting restrictions for 4 weeks. [facility] midback pain Active Condition 1. MRI of thoracic and lumbar region - upon review consider for thoracic STEVE vs Rib block2. Trigger Point Injection Today3. continue NSAIDS4. Pamelor qhs5. TENS unit6. Lidoderm7. consider AED and Ultram if no relief and non organic findings on MRI. [facility] Allergies, Adverse Reactions, Alerts Combined list of allergies from Department of Defense and Veterans Affairs facilities. It does not include entries that were removed or entered in error. Substance Category Reaction Severity Reaction type Status Date Reported Comments Source No Known Allergies Drug allergy (disorder) active 8 [facility] Immunizations Combined list of available immunizations from the Department of Defense and Veterans Affairs facilities. Immunization Series Date Given Administered By Site Reaction Lot Number CVX Code Drug Dietetics Teacher Status Comments Source tuberculin skin test; purified protein derivative solution, intradermal 1 2006 MARCELO MCKEON [id number] Shmuel (PD) [facility] ed tuberculi n skin test; purified protein derivativ e solution, intraderm al DoD influenza virus vaccine, split virus (incl. purified surface antigen)-reti red CODE 0 2005 [id number] Other (OTH) complet ed influenza virus vaccine, split virus (incl. purified surface antigen)- retired CODE DoD typhoid Vi capsular polysaccharid e vaccine 0 2005 [id number] Other (OTH) complet ed typhoid Vi capsular polysacch aride vaccine DoD influenza virus vaccine, split virus (incl. purified surface antigen)-reti red CODE 0 2005 [id number] 15 Other (OTH) complet ed influenza virus vaccine, split virus (incl. purified surface antigen)- retired CODE DoD vaccinia (smallpox) vaccine 1 2005 [id number] OctavianoCarl ([facility]) complet ed vaccinia (smallpox ) vaccine DoD typhoid Vi capsular polysaccharid e vaccine 2 2005 UNKNOWN 101 Unknown (UNK) comple t ed typhoid Vi capsular polysacch aride vaccine DoD influenza virus vaccine, split virus (incl. purified surface antigen)-reti red CODE 0 2004 [id number] Other (OTH) complet ed influenza virus vaccine, split virus (incl. purified surface antigen)- retired CODE DoD influenza virus vaccine, split virus (incl. purified surface antigen)-reti red CODE 0 2004 [id number] Other (OTH) complet ed influenza virus vaccine, split virus (incl. purified surface antigen)- retired CODE DoD hepatitis B vaccine, adult dosage 3 2003 [id number] Other (OTH) complet ed hepatitis [...] from Department of Veterans Affairs facilities going backup to the last 18 months, not all VA inpatient encounters are included; 2) Encounters from the Department of Defense facilities going backup to 280 months. Location Location Details Encounter Type Encounter Number Reason For Visit Attending Provider ADM Date DC Date Status Disposition Source [facility](Pain Manag [facility]) OUTPATIENT [id number] JOHANA PTCORA MCGRAW 08/30 Released w/o Limitations [facility](April n Manag [facility]) [facility](Hearing Cons Ricardo Sta) OUTPATIENT [id number] DENG VILLANUEVA V 10/06 Released w/o Limitations [facility](Hea ring Cons Ricardo Sta) [facility](Thoraci c [facility]) OUTPATIENT [id number] T9 osteoid osteoma SARAH LEMOS 12/27 Released w/o Limitations [facility](Tho racic [facility]) [facility](Thoraci c NM[facility]) OUTPATIENT [id number] CONSENT FOR [place]ACO [place] SARAH LEMOS 01/03 Released w/o Limitations [facility](Tho racic [facility]) [facility] DIRECT TO [facility] FROM OTHER THAN ER OR [facility] [id number] MARTA LOZADA 01/05 RETURNED TO DUTY [facility](Thoraci c [facility]) OUTPATIENT [id number] FU THORACO [place]/NAVEED MARY ELLEN FELICIANO E SARAH LEMOS 01/17 Released w/o Limitations [facility](Tho racic [facility]) [facility], [place]) OUTPATIENT [id number] PHA PART 1. PT INSTRUC YESSICA ON FASTING AND RECORD POLICY. MELVI MARTÍNEZ 02/22 Released w/o Limitations [facility] [place]) [facility], [place]) OUTPATIENT [id number] PART 2 EDUARDO MARTELL 02/28 Immediate Referral [facility], [place]) [facility](Phys Exam [place]) OUTPATIENT [id number] Separat ion physica RUBEN Moore 03/01 Released w/o Limitations [facility](Phy s Exam [place]) [facility](Immuniz ations [facility] [place]) OUTPATIENT [id number] ppd MARCELO MCKEON 03/02 Released w/o Limitations [facility](Imm unizati ons [facility] [place] ) [facility](Immuniz ations [facility] [place]) OUTPATIENT [id number] ppd check MARCELO MCKEON 03/05 Released w/o Limitations [facility](Imm unizati ons [facility] [place] ) [facility] Outpatient Encounter [id number] 11/05 [facility] Procedures Combined list of: 1) Procedures from Department of Veterans Affairs facilities going back up to thelast 18 months, not all VA non-surgical procedures are included; 2) All procedures from the Department of Defense facilities. Procedure Procedure Type Code Date Perfomer Comments [facility] e SCREENING TEST OF VISUAL ACUITY, QUANTITATIVE, BILATERAL 06/03/2003 DoD DETERMINATION OF REFRACTIVE STATE 05/14/2003 DoD FITTING OF SPECTACLES, EXCEPT FOR APHAKIA; MONOFOCAL 02/20/2003 DoD SKIN TEST; TUBERCULOSIS, INTRADERMAL 03/02/2007 DoD MOST RECENT SYSTOLIC BLOOD PRESSURE GREATER THAN OR EQUAL TO 140 MM HG (HTN, CKD, CAD) (DM) 02/28/2007 DoD COMPUTERIZED AXIAL TOMOGRAPHY OF THORAX 01/09/2007 DoD INCISION OF CHEST WALL 01/09/2007 DoD FIBER-OPTIC BRONCHOSCOPY 01/09/2007 DoD LOCAL EXCISION OF LESION OR TISSUE OF OTHER BONE, EXCEPT FACIAL BONES 01/09/2007 DoD Skin Test Anergy Tuberculin Intradermal Skin Test Anergy Tuberculin Intradermal 22674 03/02/2007 MARCELO MCKEON DoD Prev Med Documented/Reviewed Systolic BP > or = 140 mmHg Prev Med Documented/Reviewe d Systolic BP > or = 140 mmHg 3077F 02/28/2007 EDUARDO MARTELL DoD Screening Test Of Visual Acuity, Quantitative, Bilateral Screening Test Of Visual Acuity, Quantitative, Bilateral 90401 02/28/2007 EDUARDO MARTELL DoD Social History Combined list of available smoking, tobacco, and other social history from Department of Defense and Veterans Affairs facilities. Social History Type Response Date Comment Sourc e This section is an empty social history section. DoD
--- OUTSIDE RECORDS SUMMARY | 2025-03-17 00:34 | XMS_ITS | Encounter Summary ---
Author Organization [facility] Healthcare Address [address] [place] [id number] Care Team Providers Care Nuclear Medicine Tech Name Role Phone Roxanna Moreno MD Primary Care Provider + Dayanna Crump MD Unavailable [phone] Reason for Visit * Reason Onset Date Comments Pre-Surgical Call 04/17/2019 Encounter Details Date Type Department Care Team (Late st Contact Info) Description 04/17/[address]st [place] [address] Joyce Briseno RN Pre-Surgical Call Social History Tobacco Use Types Packs/Day Years Used Date Smoking Tobacco: Never Smokeless Tobacco: Never Alcohol Use Standard Drinks/Week Comments Yes 0 (1 standard drink = 0.6 oz pur e alcohol) Sex and Gender Information Value Date Recorded Sex Assigned at Not on file Legal Sex Male 1:57 AM SCHEDULING MANAGER Gender Identity Male 06/20/2021 2:35 PM SCHEDULING MANAGER Sexual Orientation Straight 06/20/2021 2 :35 PM SCHEDULING MANAGER documented as of this encounter Plan of Treatment Not on file documented as of this encounter Visit Diagnoses Not on filedocumented in this encounter Care Teams Nuclear Medicine Tech Relationship Specialty Start Date End Date Roxanna Moreno MD PCP - General 10/21/16 Dayanna Crump MD Consulting Physician Pain Management 01/30/23 documented as of this encounter
--- OUTSIDE RECORDS SUMMARY | 2025-03-17 00:34 | XMS_ITS | Clinical Summary ---
Author Organization [facility] Address [address] [facility] [place] [address] Care Team Providers Care Crm Specialist Name Role Phone Roxanna Moreno MD Primary Care Provider [phone] Source Comments [facility],non-owned Affiliates and Associated Physician Practices is amultiple site organization consisting of ambulatory clinics and hospital sitesin [place], [place], [place] and [place]. This disclosure is being madepursuant to the Care Everywhere program and may not contain all information available regarding this patient. Last updated 18.[facility] Allergies No known active allergies Medications * [...] 9:17 AM CDT Height 180.3 cm (5' 11) 02/04/2013 9:17 AM CDT Body Mass Index [...] season) 2024 DEPRESSION SCREENING 08/14/2024 INFLUENZA VACCINE (#1) 2025 ZOSTER VACCINE (1 of 2) 2028 [...] Name:JACQUELYN PRO Date of :1976 (Home) Address: [address] [place] [address] Payer ID:[id number] (NAIC) Type:[facility] Address: Address: [address] [place] [address] [employer] SELF PAY NO INSURANCE Member Subscriber Plan / Payer (Ef fective for All Dates) Name:Juan Pro Member ID:Not on file Relation to Subscriber:Not on file Name:JUAN PRO Subscriber ID:Not on file Address: [address] [place] [address] Payer ID:Not on file Group ID:Not on file Type:Self Pay Address: [place], [place] [employer] SELF PAY NO INSURANCE Member Subscriber Plan / Payer (Ef fective for All Dates) Name:Juan Pro Member ID:Not on file Relation to Subscriber:Not on file Name:JUAN PRO Subscriber ID:Not on file Address: [address] [place] [address] Payer ID:Not on file Group ID:Not on file Type:Self Pay Address: [place], [place] SELF PAY NO INSURANCE Member Subscriber Plan / Payer (Ef fective for All Dates) Name:Juan Pro Jeremias Member ID:Not on file Relation to Subscriber:Not on file Name:JUAN PRO Subscriber ID:Not on file Address: [address] [place] [address] Payer ID:Not on file Group ID:Not on file Type:Self Pay Address: [place], [place] Care Teams Crm Specialist Relationship Specialty Start Date End Date Roxanna Moreno MD [address] [place] [address] PCP - General Family Medicine 02/04/13
--- OUTSIDE RECORDS SUMMARY | 2025-03-17 00:35 | XMS_ITS | Encounter Summary ---
Author Organization [facility] Healthcare Address [address] [place] [address] Care Team Providers Care Laundromat Manager Name Role Phone Roxanna Moreno MD Primary Care Provider + Dayanna Crump MD Unavailable [phone] Reason for Visit * Reason Onset Date Comments precall 03/23/2020 Encounter Details Date Type Department Care Team (Late st Contact Info) Description 03/23/2020 Telephone [facility] [place] [id number] [address] Lupe Awan RN precall Social History Tobacco Use Types Packs/Day Years Used Date Smoking Tobacco: Never Smokeless Tobacco: Former Quit: 05/2011 Alcohol Use Standard Drinks/Week Comments Yes 0 (1 standard drink = 0.6 oz pur e alcohol) Sex and Gender Information Value Date Recorded Sex Assigned at Not on file Legal Sex Male 1:57 AM NURSE COORDINATOR Gender Identity Male 06/20/2021 2:35 PM NURSE COORDINATOR Sexual Orientation Straight 06/20/2021 2: 35 PM NURSE COORDINATOR documented as of this encounter Plan of Treatment Not on file documented as of this encounter Goals Goal Patient Goal Type Associated Problems Recent Progress Patient-Stated? Author CCM Chronic Pain Care Plan Chronic Care Management No change(07/21 7:32 AM NURSE COORDINATOR) No Saran Quiñones, RN Note: Problem: Chronic Pain Goals: 1. Minimize further functional decline 2. Maximize quality of life 3. Control pain Strategies: - Activity/exercise program recommendation - Conservative stepwise pain medicine strategy with multi-disciplinary approach - Recommend healthy lifestyle strategies and compensatory methods as needed documented as of this encounter Visit Diagnoses Not on filedocumented in this encounter Care Teams Laundromat Manager Relationship Specialty Start Date End Date Roxanna Moreno MD PCP - General 10/21/16 Dayanna Crump MD Consulting Physician Pain Management 01/30/23 documented as of this encounter
--- OUTSIDE RECORDS SUMMARY | 2025-03-17 00:35 | XMS_ITS | Clinical Summary ---
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 Myofascial pain 02/07/2018 Neck pain 03/08/2017 Cervical radiculopathy 03/08/2017 Inguinal pain 12/16/2016 Back pain 10/14/2015 Arthritis 10/14/2015 Effusion of joint of multiple sites 10/14/2015 Visual impairment 10/14/2015 Encounter for preventive health examination 03/14 Encounters Date Type Department Care Team Description 03/03/2025 Telephone [facility] Otolaryngology [address] [place] [address] Jacquelyn Manley MS from Last 3 Months Immunizations Immunization Administration [...] on file Legal Sex Male 1:57 AM JAVA PROGRAMMER Gender Identity Male 06/20/2021 2:35 PM JAVA PROGRAMMER Sexual Orientation Straight 06/20/2021 2: 35 PM JAVA PROGRAMMER Obstetrics History Last Filed Vital Signs Vital Sign Reading Time Taken Comments Blood Pressure 158/99 07/21/2023 8:24 AM JAVA PROGRAMMER Pulse 72 07/21/2023 8:24 AM JAVA PROGRAMMER Temperature 36.4 C (97.6 F) 07/21/2023 7:32 AM JAVA PROGRAMMER Respiratory Rate 16 07/21/2023 8:15 AM JAVA PROGRAMMER Oxygen Saturation 98% 07/21/2023 8:24 AM JAVA PROGRAMMER Inhaled Oxygen Concentration - - Weight 123.8 kg (273 lb) 10/04/2024 1:59 PM JAVA PROGRAMMER Height 180.3 cm (5' 11) 10/04/2024 1:59 PM JAVA PROGRAMMER Body Mass Index 38.08 10/04/2024 1:59 PM JAVA PROGRAMMER Plan of Treatment Health Maintenance Due Date Last Done Comments Colon Cancer Screening-Colonoscopy 1978 Depression Screening 1978 Hepatitis C Screening 1978 DTaP/Tdap/Td Vaccine (1 - Tdap) 1989 Hepatitis B Screening 1996 Regular Well Visit/Exam 18-64 1996 Covid-19 Vaccine ( season) 2024 06/18/2021, 10/20/2020, 09/16/2020 Influenza Vaccine (#1) 2025 3, 05/27/2021, 05/14/2020, Additional history exists HPV Vaccines Aged Out No longer eligi ble based on patient's age to complete this topic Pneumococcal vaccine <65 Aged Out No longer eligible based on patient's age to complete this topic Goals Goal Patient Goal Type Associated Problems Recent Progress Patient-Stated? Author CCM Chronic Pain Care Plan Chronic Care Management No change(07/21 7:32 AM JAVA PROGRAMMER) No Saran Quiñones, MABLE Note: Problem: Chronic Pain Goals: 1. Minimize further functional decline 2. Maximize quality of life 3. Control pain Strategies: - Activity/exercise program recommendation - Conservative stepwise pain medicine strategy with multi-disciplinary approach - Recommend healthy lifestyle strategies and compensatory methods as needed Reduce the likelihood of falling Lifestyle No change(07/21 7:32 AM JAVA PROGRAMMER) No Kenyatta Jackson, MABLE Note: Below are [...] home safety. Medical Devices Implanted Type Area Wind Energy Project Manager Device Identifier Shelf Expiration Date Model / Serial / Lot Spinal Cord Stimulator- Implanted:11/2010 (Quantity not on file) Spinal Cord Stimulator Back [employer] Neuro Insurance Member Subscriber Plan / Payer (Ef fective 2020-Present) Name:Juan Pro Relation to Subscriber:Self Name:JUAN PRO Payer ID:[id number] (NAIC) Type:[facility] H[facility]/PPO Address: [address] CHOICE PLUS [facility] [employer] Care Teams Certified Alcohol And Drug Counselor Relationship Specialty Start Date End Date Roxanna Moreno MD PCP - General 10/21/16 Dayanna Crump MD Consulting Physician Pain Management 01/30/23
--- OUTSIDE RECORDS SUMMARY | 2025-03-17 00:35 | XMS_ITS | Encounter Summary ---
Author Organization [facility] Healthcare Address [address] [place] [address] Care Team Providers Care Front Line Leader Name Role Phone Roxanna Moreno MD Primary Care Provider + Dayanna Crump MD Unavailable [phone] Reason for Visit * Reason Onset Date Comments Pre Arrival 02/18/2021 Encounter Details Date Type Department Care Team (Late st Contact Info) Description 02/18/2021 Telephone [facility] [place] [id number] [facility] 1st [place] [address] Larissa Goncalves, MABLE Pre Arrival Social History Tobacco Use Types Packs/Day Years Used Date Smoking Tobacco: Never Smokeless Tobacco: Former Quit: 05/2011 Alcohol Use Standard Drinks/Week Comments Yes 0 (1 standard drink = 0.6 oz pur e alcohol) RARE 3-4 q year Sex and Gender Information Value Date Recorded Sex Assigned at Not on file Legal Sex Male 1:57 AM DIRECT CARE PROVIDER Gender Identity Male 06/20/2021 2:35 PM DIRECT CARE PROVIDER Sexual Orientation Straight 06/20/2021 2: 35 PM DIRECT CARE PROVIDER documented as of this encounter Plan of Treatment Not on file documented as of this encounter Goals Goal Patient Goal Type Associated Problems Recent Progress Patient-Stated? Author [facility] Chronic Pain Care Plan Chronic Care Management No change(07/21 7:32 AM DIRECT CARE PROVIDER) No Saran Quiñones, RN Note: Problem: Chronic Pain Goals: 1. Minimize further functional decline 2. Maximize quality of life 3. Control pain Strategies: - Activity/exercise program recommendation - Conservative stepwise pain medicine strategy with multi-disciplinary approach - Recommend healthy lifestyle strategies and compensatory methods as needed Reduce the likelihood of falling Lifestyle No change(07/21 7:32 AM DIRECT CARE PROVIDER) Kenyatta Carroll RN Note: Below are four [...] on filedocumented in this encounter Care Teams Front Line Leader Relationship Specialty Start Date End Date Roxanna Moreno MD PCP - General 10/21/16 Dayanna Crump MD Consulting Physician Pain Management 01/30/23 documented as of this encounter
--- OUTSIDE RECORDS SUMMARY | 2025-03-17 00:36 | XMS_ITS | Referral Summary ---
Author Organization [facility] Address [address] [place] [address] Care Team Providers Care Sap Developer Name Role Phone Roxanna Moreno MD Primary Care Provider + Dayanna Crump MD Unavailable [phone] Encounters Date Type Department Care Team Description 03/03/2025 Telephone [facility] Otolaryngology [address] [place] [address] Jacquelyn Manley, from Last 3 Months Allergies No known [...] (04/03/2020): Added automatically from request for surgery [id number] Carpal tunnel syndrome of right wrist 04/02/2020 Overview (04/02/2020): Added automatically from request for surgery [id number] Other chronic pain 02/07/2018 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 [...] on file Legal Sex Male 1:57 AM EDUCATION GENERAL MANAGER Gender Identity Male 06/20/2021 2:35 PM EDUCATION GENERAL MANAGER Sexual Orientation Straight 06/20/2021 2: 35 PM EDUCATION GENERAL MANAGER Last Filed Vital Signs Vital Sign Reading Time Taken Comments Blood Pressure 158/99 07/21/2023 8:24 AM EDUCATION GENERAL MANAGER Pulse 72 07/21/2023 8:24 AM EDUCATION GENERAL MANAGER Temperature 36.4 C (97.6 F) 07/21/2023 7:32 AM EDUCATION GENERAL MANAGER Respiratory Rate 16 07/21/2023 8:15 AM EDUCATION GENERAL MANAGER Oxygen Saturation 98% 07/21/2023 8:24 AM EDUCATION GENERAL MANAGER Inhaled Oxygen Concentration - - Weight 123.8 kg (273 lb) 10/04/2024 1:59 PM EDUCATION GENERAL MANAGER Height 180.3 cm (5' 11) 10/04/2024 1:59 PM EDUCATION GENERAL MANAGER Body Mass Index 38.08 10/04/2024 1:59 PM EDUCATION GENERAL MANAGER Plan of Treatment Not on file Goals Goal Patient Goal Type Associated Problems Recent Progress Patient-Stated? Author CCM Chronic Pain Care Plan Chronic Care Management No change(07/21 7:32 AM EDUCATION GENERAL MANAGER) No Saran Quiñones, RN Note: Problem: Chronic Pain Goals: 1. Minimize further functional decline 2. Maximize quality of life 3. Control pain Strategies: - Activity/exercise program recommendation - Conservative stepwise pain medicine strategy with multi-disciplinary approach - Recommend healthy lifestyle strategies and compensatory methods as needed Reduce the likelihood of falling Lifestyle No change(07/21 7:32 AM EDUCATION GENERAL MANAGER) No Kenyatta Jackson, MABLE Note: Below are [...] home safety. Medical Devices Implanted Type Area Crayon Sawyer Device Identifier Shelf Expiration Date Model / Serial / Lot Spinal Cord Stimulator- Implanted:11/2010 (Quantity not on file) Spinal Cord Stimulator Back [employer] Neuro Insurance [facility] CHOICE PLUS [place] [id number] [facility] CHOICE PLUS [place] [id number] [facility] [employer] [facility] [employer] Care Teams Sap Developer Relationship Specialty Start Date End Date Roxanna Moreno MD PCP - General 10/21/16 Dayanna Crump MD Consulting Physician Pain Management 01/30/23
--- OUTSIDE RECORDS SUMMARY | 2025-03-17 00:36 | XMS_ITS | Clinical Summary ---
Author Organization [facility] Administrative Offices Address [address] [place] [address] Care Team Providers Care Tape Machine Tailer Name Role Phone Unavailable Primary Care Provider Unavailabl e Social History Tobacco Use Types Packs/Day Years Used Date Smoking Tobacco: Never Assessed Sex and Gender Information Value Date Recorded Sex Assigned at Not on file Legal Sex Male 5:56 AM FIRE PREVENTION CAPTAIN Gender Identity Not on file Sexual Orientation [...] Q 5 years 2023 INFLUENZA VACCINE (#1) 2025 HPV VACCINES Aged Out No longer eligi ble based on patient's age to complete this topic Insurance [facility] [id number]
[2025-03-17 06:54] VITALS: BP 154/95; PULSE 83; RESP 16; TEMP 36.5; O2SAT 97; BMI 37.2
[2025-03-17] MEDS: LACTATED RINGERS 1,000 ML 150 ML IV CONT (07:02)
[2025-03-17] MEDS: SIMETHICONE ORAL SUSPENSION 20 MG/0.3 ML 30 ML BOTTLE 1.8 ML PO (07:03)
--- NOTE | 2025-03-17 07:07 | P.PNAN_ITS ---
Anes - Initial Pre Proc Eval Procedure: Operation Date: 03/17/25 08:00 Proposed Procedures p Esophagogastroduodenoscopy - Shlomo Jacobs MD Date/Time: 03/17/25 07:07 Surgeon: Shlomo Jacobs MD Pre Op Diagnosis: Right upper quadrant pain Patient Data Age: 44 Gender: M Height: 1.8 m Weight: 121 kg Last Vital Signs Temp 36.5 C 03/17/25 06:54 Pulse 83 03/17/25 06:54 Resp 16 03/17/25 06:54 BP 154/95 H 03/17/25 06:54 Pulse Ox 97 03/17/25 06:54 O2 Del Method Room Air 03/17/25 06:54 Allergies Allergy/AdvReac Type Severity Reaction Status Date / Time No Known Allergies Allergy Mild Verified 03/17/25 06:52 Home Medications ?Medication ?Instructions ?Recorded ?Confirmed ?Type lidocaine 5 % topical cream 1 applic topical BID PRN Rash 10/15/20 02/26/25 History diclofenac sodium 1 % topical gel See Rx Instructions .Route 01/27/22 03/17/25 Rx (Voltaren Arthritis Pain) .COMPLEX #350 grams irbesartan 150 mg tablet 300 mg (2 x 150 mg) PO DAILY #180 01/02/24 03/17/25 Rx tabs hydrochlorothiazide 12.5 mg capsule 25 mg (2 x 12.5 mg) PO DAILY 3 05/30/24 03/17/25 Rx months #180 caps semaglutide (weight loss) 2.4 2.4 mg (0.75 mL) subcut WEEKLY #9 07/08/24 02/17/25 Rx mg/0.75 mL subcutaneous pen mL injector (Webridgetvy) atorvastatin 40 mg tablet 40 mg PO DAILY #90 tabs 11/22/24 03/17/25 Rx testosterone cypionate 200 mg/mL 200 mg IM .COMPLEX #10 mL 12/31/24 02/26/25 Rx intramuscular oil naproxen 500 mg tablet 500 mg PO BID PRN pain #20 tabs 02/10/25 03/17/25 Rx cyclobenzaprine 10 mg tablet 10 mg PO TID PRN muscle spasm #20 02/17/25 03/17/25 Rx tabs fluticasone propionate 50 intranasal 02/17/25 02/17/25 History mcg/actuation nasal spray,suspension omeprazole 40 mg capsule,delayed 40 mg PO DAILY #90 caps 02/17/25 03/17/25 Rx release sertraline 100 mg tablet 100 mg PO DAILY #90 tabs 02/24/25 03/17/25 Rx Patient hx anesthesia problems: none Family hx anesthesia problems: none Results Review: All pre-operative results and documents have been reviewed as part of the pre- operative evaluation. 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, resected 2006 Syncope Cervical radiculopathy at C5 Cubital tunnel syndrome on right Cervicalgia Chronic pain of left knee Chronic pain Normal cardiac stress test 06/06/19 Surgical History Surgical History H/O toe surgery (~02/2024) left second toe History of carpal tunnel release Family History Family History Grandparent Family history of lung cancer Mother Melanoma Other Family history of cardiovascular disease Hypertension Social History Social History Social History: Caffeine-coffee/tea Smoking status: Never smoker Smokeless tobacco user: chewing tobacco Alcohol intake: never Substance use: never Substance use type: does not use Do You Feel Safe in your Home?: Yes Lack of Transportation: No Lack of Food: Never True Current Housing: I Have Housing Concerned About Future Housing: No Difficulty Paying Gas/Electric Bills: No Difficulty Paying for Meds: No Currently Unemployed: No Education: Bachelor's Degree Difficulty w/ Childcare or Family Care: No Living arrangements: with family Spiritual care concerns: No Anes - Eval Final PreProcedure Day of Procedure 03/17/25 07:07 Patient weight: obese Heart: regular rate and rhythm Lungs: clear to auscultation Airway: Mallampati scale class II Neurological: alert and oriented Last oral intake: >/= 8 hours ASA classification: III Emergent: no Anesthetic plan: proceed Anesthesia type and monitoring: general GIVS and standard monitoring Results Review: All pre-operative results and documents have been reviewed as part of the pre- operative evaluation. Informed Consent: The patient's anesthetic plan and its attendant risks and benefits were discussed with the patient/family/POA. Questions were solicited and answers provided to the satisfaction of the patient/family/POA.
--- NOTE | 2025-03-17 07:55 | PM.IMHP ---
H&P: HPI History of Present Illness Date/Time: 03/17/25 07:55 Chief Complaint: Right upper quadrant pain Narrative: patient referred for EGD for right upper quadrant pain of unclear etiology. This is associated with occasional vomiting. Of note, he has and above normal gallbladder ejection fraction and no gallstones. He has a previous thoracotomy a for which he is undergoing local anesthetic injections for pain control. 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, resected 2006 Syncope Cervical radiculopathy at C5 Cubital tunnel syndrome on right Cervicalgia Chronic pain of left knee Chronic pain Normal cardiac stress test 06/06/19 Surgical History Surgical History H/O toe surgery (~02/2024) left second toe History of carpal tunnel release Family History Family History Grandparent Family history of lung cancer Mother Melanoma Other Family history of cardiovascular disease Hypertension Social History Social History Social History: Caffeine-coffee/tea Smoking status: Never smoker Smokeless tobacco user: chewing tobacco Alcohol intake: never Substance use: never Substance use type: does not use Do You Feel Safe in your Home?: Yes Lack of Transportation: No Lack of Food: Never True Current Housing: I Have Housing Concerned About Future Housing: No Difficulty Paying Gas/Electric Bills: No Difficulty Paying for Meds: No Currently Unemployed: No Education: Bachelor's Degree Difficulty w/ Childcare or Family Care: No Living arrangements: with family Spiritual care concerns: No Meds Home Medications and Allergies Home Medications ?Medication ?Instructions ?Recorded ?Confirmed ?Type lidocaine 5 % topical cream 1 applic topical BID PRN Rash 10/15/20 02/26/25 History diclofenac sodium 1 % topical gel See Rx Instructions .Route 01/27/22 03/17/25 Rx (Voltaren Arthritis Pain) .COMPLEX #350 grams irbesartan 150 mg tablet 300 mg (2 x 150 mg) PO DAILY #180 01/02/24 03/17/25 Rx tabs hydrochlorothiazide 12.5 mg capsule 25 mg (2 x 12.5 mg) PO DAILY 3 05/30/24 03/17/25 Rx months #180 caps semaglutide (weight loss) 2.4 2.4 mg (0.75 mL) subcut WEEKLY #9 07/08/24 02/17/25 Rx mg/0.75 mL subcutaneous pen mL injector (Wegovy) atorvastatin 40 mg tablet 40 mg PO DAILY #90 tabs 11/22/24 03/17/25 Rx testosterone cypionate 200 mg/mL 200 mg IM .COMPLEX #10 mL 12/31/24 02/26/25 Rx intramuscular oil naproxen 500 mg tablet 500 mg PO BID PRN pain #20 tabs 02/10/25 03/17/25 Rx cyclobenzaprine 10 mg tablet 10 mg PO TID PRN muscle spasm #20 02/17/25 03/17/25 Rx tabs fluticasone propionate 50 intranasal 02/17/25 02/17/25 History mcg/actuation nasal spray,suspension omeprazole 40 mg capsule,delayed 40 mg PO DAILY #90 caps 02/17/25 03/17/25 Rx release sertraline 100 mg tablet 100 mg PO DAILY #90 tabs 02/24/25 03/17/25 Rx Allergies Allergy/AdvReac Type Severity Reaction Status Date / Time No Known Allergies Allergy Mild Verified 03/17/25 06:52 Vital Signs Vital Signs - 24 hr 03/17/25 06:54 Temperature 97.7 F Pulse Rate 83 Respiratory Rate 16 Blood Pressure 154/95 H Pulse Oximetry 97 Oxygen Delivery Room Air Exam Const: General: cooperative and healthy appearing Resp: Effort & Inspection: normal respiratory effort and able to speak in complete sentences Auscultation: clear to auscultation bilaterally Cardio: Rate: regular rate Rhythm: regular rhythm GI: Inspection: normal to inspection GI Palp: No No hepatosplenomegaly present Auscultation: normal bowel sounds Rectal Exam: deferred Skin: General skin exam: normal color Psych: Appearance: grossly normal Mental Status: mental status grossly normal Assessment and Plan Assessment and plan (1) RUQ pain: Code(s): R10.11 - Right upper quadrant pain Status: Acute Assessment and Plan: The patient is deemed a good candidate for the procedure. Consent signed. Will proceed.
[2025-03-17 08:09] VITALS: BP 114/59; PULSE 81; RESP 17; O2SAT 96
[2025-03-17 08:19] VITALS: BP 104/55; PULSE 76; RESP 17; O2SAT 96
[2025-03-17 08:29] VITALS: BP 121/79; PULSE 74; RESP 18; O2SAT 96
== END 2025-03-17 08:41 | disposition home or self-care (01) ==
PROVIDERS: PCP Family Medicine; Referring Provider Nurse Practitioner Family; Visit Provider Internal Medicine Gastroenterology
PROC: 0DJ08ZZ Inspection of Upper Intestinal Tract, Via Natural or Artificial Opening Endoscopic (ICD-10-PCS; CPT 43235; principal; 2025-03-17 08:00)
DX: R10.11 Right upper quadrant pain (principal); K31.84 Gastroparesis; G89.29 Other chronic pain; M25.562 Pain in left knee; F17.220 Nicotine dependence, chewing tobacco, uncomplicated; E66.9 Obesity, unspecified; Z68.37 Body mass index [BMI] 37.0-37.9, adult; Z79.85 Long-term (current) use of injectable non-insulin antidiabetic drugs; Z79.1 Long term (current) use of non-steroidal anti-inflammatories (NSAID); Z98.890 Other specified postprocedural states; Z80.1 Family history of malignant neoplasm of trachea, bronchus and lung; Z80.8 Family history of malignant neoplasm of other organs or systems; Z82.49 Family history of ischemic heart disease and other diseases of the circulatory system
CPT/HCPCS: 43235; J2003; J2704; J7120

== ENCOUNTER 2025-04-18 01:10 | Day surgery (SDC) | payer OTHER, SELFPAY ==
[2025-04-07 13:22] VITALS: BMI 36.3
[2025-04-18 07:49] VITALS: BP 131/81; PULSE 87; RESP 18; TEMP 36.7; O2SAT 98; BMI 36.8
[2025-04-18] MEDS: LACTATED RINGERS 1,000 ML 150 ML IV CONT (07:53)
[2025-04-18] MEDS: SIMETHICONE ORAL SUSPENSION 20 MG/0.3 ML 30 ML BOTTLE 1.8 ML PO (08:05)
--- NOTE | 2025-04-18 08:54 | PM.IMHP ---
H&P: HPI History of Present Illness Date/Time: 04/18/25 08:54 Chief Complaint: Abdominal pain Narrative: The patient has recurrent abdominal pain. An EGD was attempted 1 month ago but was not possible due to significant amount of food retained in the stomach, probably secondary to the use of GLP -1 agents. He is here for EGD, having had a 2 day liquid diet. 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, resected 2006 Syncope Cervical radiculopathy at C5 Cubital tunnel syndrome on right Cervicalgia Chronic pain of left knee Chronic pain Normal cardiac stress test 06/06/19 Surgical History Surgical History H/O toe surgery (~02/2024) left second toe History of carpal tunnel release Family History Family History Grandparent Family history of lung cancer Mother Melanoma Other Family history of cardiovascular disease Hypertension Social History Social History Social History: Caffeine-coffee/tea Smoking status: Former smoker Smokeless tobacco user: chewing tobacco Additional smoking assessment comments: hx chewing tobacco, not currently Alcohol intake: never Substance use: never Substance use type: does not use Do You Feel Safe in your Home?: Yes Lack of Transportation: No Lack of Food: Never True Current Housing: I Have Housing Concerned About Future Housing: No Difficulty Paying Gas/Electric Bills: No Difficulty Paying for Meds: No Currently Unemployed: No Education: Bachelor's Degree Difficulty w/ Childcare or Family Care: No Living arrangements: with family Spiritual care concerns: No Meds Home Medications and Allergies Home Medications ?Medication ?Instructions ?Recorded ?Confirmed ?Type lidocaine 5 % topical cream 1 applic topical BID PRN Rash 10/15/20 04/18/25 History diclofenac sodium 1 % topical gel See Rx Instructions .Route 01/27/22 04/18/25 Rx (Voltaren Arthritis Pain) .COMPLEX #350 grams hydrochlorothiazide 12.5 mg capsule 25 mg (2 x 12.5 mg) PO DAILY 3 05/30/24 04/18/25 Rx months #180 caps semaglutide (weight loss) 2.4 2.4 mg (0.75 mL) subcut WEEKLY #9 07/08/24 04/18/25 Rx mg/0.75 mL subcutaneous pen mL injector (Wegovy) atorvastatin 40 mg tablet 40 mg PO DAILY #90 tabs 11/22/24 04/18/25 Rx testosterone cypionate 200 mg/mL 200 mg IM .COMPLEX #10 mL 12/31/24 04/07/25 Rx intramuscular oil fluticasone propionate 50 1 spray intranasal 02/17/25 02/17/25 History mcg/actuation nasal spray,suspension omeprazole 40 mg capsule,delayed 40 mg PO DAILY #90 caps 02/17/25 04/18/25 Rx release sertraline 100 mg tablet 100 mg PO DAILY #90 tabs 02/24/25 04/18/25 Rx irbesartan 150 mg tablet 300 mg (2 x 150 mg) PO DAILY #180 04/09/25 Rx tabs Allergies Allergy/AdvReac Type Severity Reaction Status Date / Time No Known Allergies Allergy Mild Verified 04/18/25 07:46 Vital Signs Vital Signs - 24 hr 04/18/25 07:49 Temperature 98.1 F Pulse Rate 87 Respiratory Rate 18 Blood Pressure 131/81 Pulse Oximetry 98 Oxygen Delivery Room Air Exam Const: General: cooperative and healthy appearing Resp: Effort & Inspection: normal respiratory effort and able to speak in complete sentences Auscultation: clear to auscultation bilaterally Cardio: Rate: regular rate Rhythm: regular rhythm GI: Inspection: normal to inspection GI Palp: No No hepatosplenomegaly present Auscultation: normal bowel sounds Rectal Exam: deferred Skin: General skin exam: normal color Psych: Appearance: grossly normal Mental Status: mental status grossly normal Assessment and Plan Assessment and plan (1) Abdominal pain: Code(s): R10.9 - Unspecified abdominal pain Status: Acute Assessment and Plan: The patient is deemed a good candidate for the procedure. Consent signed. Will proceed.
--- NOTE | 2025-04-18 09:07 | S_PTH ---
PATIENT: Aleksandar Olsen LOC: [facility] #:[id number] AGE/SX: 44/M ROOM: RE04/18/[address]: Shlomo Jacobs MD : 1980 BED: DIS: 04/18/2025 SPEC #: [id number] RECD: 04/18/25 09:45 STATUS: BERT REQ #: [id number] KALLI: 04/18/25 09:[address]: Shlomo Jacobs DEPT: [facility] Surgical RECD BY: Shima Raymundo ENTERED: 04/18/25 09:45 SP TYPE: Surgical OTHR DR: Roxanna Moreno MD Tissues: A - Gastric Biopsy B - Gastric Biopsy Procedures: Hematoxylin and Eosin Stain Gross and Microscopic Level 4
[2025-04-18 09:10] VITALS: BP 106/72; PULSE 79; RESP 19; O2SAT 98
[2025-04-18 09:20] VITALS: BP 120/81; PULSE 73; RESP 21; O2SAT 99
[2025-04-18 09:30] VITALS: BP 123/87; PULSE 68; RESP 16; O2SAT 98
--- NOTE | 2025-04-21 15:01 | WPDANESEPPF ---
Anes - Initial Pre Proc Eval Procedure: Operation Date: 04/18/25 09:00 Proposed Procedures p Esophagogastroduodenoscopy - Shlomo Jacobs MD Date/Time: 04/21/25 15:01 Surgeon: Shlomo Jacobs MD Pre Op Diagnosis: Right upper quadrant pain Patient Data Age: 44 Gender: M Height: 1.8 m Weight: 120 kg Last Vital Signs Temp 36.7 C 04/18/25 07:49 Pulse 68 04/18/25 09:30 Resp 16 04/18/25 09:30 BP 123/87 04/18/25 09:30 Pulse Ox 98 04/18/25 09:30 O2 Del Method Room Air 04/18/25 09:30 O2 Flow Rate 4 04/18/25 09:10 Allergies Allergy/AdvReac Type Severity Reaction Status Date / Time No Known Allergies Allergy Mild Verified 04/18/25 07:46 Home Medications ?Medication ?Instructions ?Recorded ?Confirmed ?Type lidocaine 5 % topical cream 1 applic topical BID PRN Rash 10/15/20 04/18/25 History diclofenac sodium 1 % topical gel See Rx Instructions .Route 01/27/22 04/18/25 Rx (Voltaren Arthritis Pain) .COMPLEX #350 grams hydrochlorothiazide 12.5 mg capsule 25 mg (2 x 12.5 mg) PO DAILY 3 05/30/24 04/18/25 Rx months #180 caps semaglutide (weight loss) 2.4 2.4 mg (0.75 mL) subcut WEEKLY #9 07/08/24 04/18/25 Rx mg/0.75 mL subcutaneous pen mL injector (Wegovy) atorvastatin 40 mg tablet 40 mg PO DAILY #90 tabs 11/22/24 04/18/25 Rx testosterone cypionate 200 mg/mL 200 mg IM .COMPLEX #10 mL 12/31/24 04/07/25 Rx intramuscular oil fluticasone propionate 50 1 spray intranasal 02/17/25 02/17/25 History mcg/actuation nasal spray,suspension omeprazole 40 mg capsule,delayed 40 mg PO DAILY #90 caps 02/17/25 04/18/25 Rx release sertraline 100 mg tablet 100 mg PO DAILY #90 tabs 02/24/25 04/18/25 Rx irbesartan 150 mg tablet 300 mg (2 x 150 mg) PO DAILY #180 04/09/25 Rx tabs Patient hx anesthesia problems: none Family hx anesthesia problems: none Results Review: All pre-operative results and documents have been reviewed as part of the pre-operative evaluation. 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, resected 2006 Syncope Cervical radiculopathy at C5 Cubital tunnel syndrome on right Cervicalgia Chronic pain of left knee Chronic pain Normal cardiac stress test 06/06/19 Surgical History Surgical History H/O toe surgery (~02/2024) left second toe History of carpal tunnel release Family History Family History Grandparent Family history of lung cancer Mother Melanoma Other Family history of cardiovascular disease Hypertension Social History Social History Social History: Caffeine-coffee/tea Smoking status: Former smoker Smokeless tobacco user: chewing tobacco Additional smoking assessment comments: hx chewing tobacco, not currently Alcohol intake: never Substance use: never Substance use type: does not use Do You Feel Safe in your Home?: Yes Lack of Transportation: No Lack of Food: Never True Current Housing: I Have Housing Concerned About Future Housing: No Difficulty Paying Gas/Electric Bills: No Difficulty Paying for Meds: No Currently Unemployed: No Education: Bachelor's Degree Difficulty w/ Childcare or Family Care: No Living arrangements: with family Spiritual care concerns: No Anes - Eval Final PreProcedure Day of Procedure 04/21/25 15:01 Patient weight: obese Heart: regular rate and rhythm Lungs: clear to auscultation Airway: Mallampati scale class II Neurological: alert and oriented Last oral intake: >/= 8 hours ASA classification: III Emergent: no Anesthetic plan: proceed Anesthesia type and monitoring: general GIVS and standard monitoring Results Review: All pre-operative results and documents have been reviewed as part of the pre-operative evaluation. Informed Consent: The patient's anesthetic plan and its attendant risks and benefits were discussed with the patient/family/POA. Questions were solicited and answers provided to the satisfaction of the patient/family/POA.
== END 2025-04-18 09:40 | disposition home or self-care (01) ==
PROVIDERS: PCP Family Medicine; Referring Provider Internal Medicine Gastroenterology; Visit Provider Internal Medicine Gastroenterology
PROC: 0DJ08ZZ Inspection of Upper Intestinal Tract, Via Natural or Artificial Opening Endoscopic (ICD-10-PCS; CPT 43239; principal; 2025-04-18 09:00)
DX: K29.30 Chronic superficial gastritis without bleeding (principal); E78.2 Mixed hyperlipidemia; I10 Essential (primary) hypertension; G89.29 Other chronic pain; M25.562 Pain in left knee; F41.9 Anxiety disorder, unspecified; Z87.891 Personal history of nicotine dependence
CPT/HCPCS: 43239; 88305; J2003; J2704; J7120